=== PATIENT | male | born 1985 | race Caucasian/White ===

== ENCOUNTER → 2016-10-19 | Outpatient (CLI) | payer OTHER ==
[~2016-10-19] MED LIST: TRAM-21 PO
--- OUTSIDE RECORDS SUMMARY | 2016-10-19 10:06 | XMS REPORT | Continuity of Care Document ---
Author Author [facility] Organization [facility] Address Unknown Phone Unavailable Care Team Providers Care Interventional Radiology Tech Name Role Phone PCP Unavailable Source Comments Some departments are not documenting in the electronic medical record. If you do not see the information that you expected, contact Release of Information in the Health Information Management department at [phone] for further assistance in locating additional records.[facility] Active Allergies and Adverse Reactions Not on File Current Medications Not on file Active Problems Not on file Social History Tobacco Use Types Packs/Day Years Used Date Never Assessed Plan of Care Health Maintenance Due Date Last Done Comments Physical (Comprehensive) 1994 Exam Pertussis Vaccine 1998 Tetanus Vaccine 2004 Influenza Vaccine 05/04/2015 Results from Last 3 Months Not on file
--- NOTE | 2016-10-20 10:52 | ECHOCARDIOGRAPHY REPORT ---
PROCEDURE PHYSICIAN: SHEFALI NOEL DATE OF PROCEDURE: 10/19/2016 TWO DIMENSIONAL ECHOCARDIOGRAM REPORT PRIMARY PHYSICIAN: OTHER PHYSICIAN: REFERRING PHYSICIAN: ORDERING PHYSICIAN: Dr. Catie Elizabeth INDICATION FOR THE PROCEDURE: Cardiac murmur. MEASUREMENTS DERIVED VALUES LV DIAMETER (LAX) NORMALS NORMALS Diastolic 5.3 (3.6-5.2) Eject. Fract. (60%+/-6%) Systolic (2.3-3.9) Diastolic Vol. % Shortening (0.22-0.42) Systolic Vol. Aortic Root 3.3 IVS THICKNESS Diastolic 1. (0.6-1.1) LVPW THICKNESS Diastolic 1.1 (0.6-1.1) LA DIAMETER Systolic 2.9 (2.1-3.7) DESCRIPTION: 2-dimensional echocardiography shows normal global left ventricular systolic function. No regional wall motion abnormalities are seen. The left ventricular ejection fraction is approximately 65%. There does not appear to be significant pericardial effusion. Mitral and tricuspid valve leaflets show good leaflet excursion. There is aortic valve sclerosis and calcification. Aortic valve leaflet structure is not very well visualized. A bicuspid aortic valve is suspected. Doppler imaging shows mild aortic and mitral regurgitation. Peak pressure gradient across the aortic valve is 61 mmHg with a mean gradient 33 mmHg. The aortic valve area is calculated to be 1.6 sq cm. There is no evidence of significant intracardiac shunt on this transthoracic echocardiographic study. Inferior vena cava appears to have normal inspiratory collapse. CONCLUSIONS: 1. Aortic stenosis, moderate, probably in a bicuspid aortic valve, with a valve area of approximately 1.6 sq cm, a peak pressure gradient across the aortic valve of 61 mmHg and mean gradient across the aortic valve approximately 33 mmHg. 2. Normal global left ventricular systolic function and ejection fraction of 65%. 3. Mild aortic, mitral and tricuspid regurgitation. 4. Pulmonary artery systolic pressure is estimated to be approximately 25 to 30 mmHg. Job ID: [id number] Dictated Date: 10/19/2016 20:08:16 Cotton Puller Date: 10/20/2016 10:43:51 / jourdan
== END ==
LOC: CARD 10:02
PROVIDERS: ATTEND Pediatrics
DX: I35.8 Other nonrheumatic aortic valve disorders (principal)
CPT/HCPCS: 93306

== ENCOUNTER 2018-10-06 15:54 | Observation (INO) | payer SELFPAY, OTHER | END 2018-10-07 14:45 | disposition home or self-care (01) | LOC: ER 15:54 → ICU 17:09 ==

== ENCOUNTER 2018-10-31 12:17 | Outpatient (RCR) | payer OTHER ==
[~2018-10-31 12:17] MED LIST changes: +METO-395 PO; +STL80T PO
[2019-01-01] MEDS ORDERED: LORA0.5T (07:37)
[2019-01-01] MEDS ORDERED: ACHD5005 PO (11:48)
== END 2019-01-05 | disposition home or self-care (01) ==
LOC: CARD 12:17
PROVIDERS: ATTEND Internal Medicine Interventional Cardiology
DX: R00.2 Palpitations (principal)
CPT/HCPCS: 93270

== ENCOUNTER 2018-11-06 05:20 | Emergency (ER) | payer SELFPAY ==
[~2018-11-06] VITALS: Ht 180.3 cm; Wt 142.9 kg
[~2018-11-06 05:20] MED LIST changes: +SOTA80TA PO; -STL80T PO
[2018-11-06] MEDS ORDERED: diphenhydrAMINE 50 MG/ML INJ (BENADRYL) IVP STA (05:29)
[2018-11-06] MEDS ORDERED: METOCLOPRAMIDE INJ 10 MG/2 ML (REGLAN) IVP STA (05:29)
[2018-11-06] MEDS ORDERED: NS IV 1000 ML 1,000 ML IV STA (05:29)
--- NOTE | 2018-11-06 05:36 | ED Headache ---
General Chief Complaint: Head/Cervical Problems Stated Complaint: MIGRAINE History of Present Illness Date Seen by Provider: Nov 06, 2018 Time Seen by Provider: 05:25 This is a 33-year-old male with a history of migraine headaches here for a "migraine" headache. He typically will have his headaches on the left side and this headache is also left-sided. Not abrupt in onset. Began gradually last night. Not worst of life. He has seen a doctor for his headaches in the past however it has been a while. 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 Denies visual change or focal weakness, numbness, or tingling. Denies fever or neck stiffness. He does have some pain in the left posterior neck however he denies any recent injuries or chiropractic adjustments. He tried to take oral analgesics at home but he says that he vomited them back up. Vomiting is not unusual with his headaches. Smokes marijuana and smokes cigarettes, denies drug use. (KRISHNA BOLES DO) Allergies and Home Medications Allergies Coded Allergies: No Known Drug Allergies (Unverified , 01/08/09) Home Medications Metoprolol Succinate 100 Mg Tab.er.24h, 100 MG PO DAILY Prescribed by: ALEXUS MAHMOOD on 10/07/18 1431 Patient Home Medication List Home Medication List Reviewed: Yes (KRISHNA BOLES DO) Review of Systems Review of Systems Constitutional: no symptoms reported Eyes: Denies Blurred Vision; Photophobia Ears, Nose, Mouth, Throat: no symptoms reported Respiratory: no symptoms reported Cardiovascular: no symptoms reported Gastrointestinal: vomiting Genitourinary: no symptoms reported Musculoskeletal: no symptoms reported Skin: no symptoms reported Psychiatric/Neurological: Headache; Denies Numbness, Denies Tingling, Denies Weakness (KRISHNA BOLES DO) Past Posglyt-Obrihd-Mpzvab Hx Patient Social History Type Used: Cigarettes 2nd Hand Smoke Exposure: No Recent Foreign Travel: No Contact w/Someone Who Travel: No Recent Hopitalizations: Yes (ablasion 10/04/18) (KRISHNA BOLES DO) Immunizations Up To Date Date of Influenza Vaccine: Jun 03, 2018 (KRISHNA BOLES DO) Seasonal Allergies Seasonal Allergies: Yes (KRISHNA BOLES DO) Past Medical History Surgeries: Yes (heart ablasion) Respiratory: No Cardiac: Yes (hx of SVT, aortic stenosis) Aneurysm, Irregular Heartbeat Neurological: No Genitourinary: No Gastrointestinal: No Musculoskeletal: Yes Chronic Back Pain Endocrine: No HEENT: Yes (has "floaters in eyes") Cancer: No Psychosocial: No Integumentary: No Blood Disorders: No Adverse Reaction/Blood Tranf: No (KRISHNA BOLES DO) Family Medical History Hypertension (KRISHNA BOLES DO) Physical Exam Vital Signs Vital Signs - First Documented 11/06/18 05:30 Temp 96.1 Pulse 85 Resp 16 B/P (MAP) 119/69 (86) Pulse Ox 96 O2 Delivery Room Air (SANDRITA BUTLER MD) Vital Signs Capillary Refill : (KRISHNA BOLES DO) Height, Weight, BMI Height: 5'11.00" Weight: 305lbs. 13.0oz. [id number]; 42.7 BMI Method:Stated General Appearance: other (appears mildly uncomfortable but otherwise in no acute distress) HEENT: PERRL/EOMI, other (funduscopic exam is limited) Neck: full range of motion, supple; No carotid bruit (systolic murmur on cardiac exam is transmitted to carotids symmetrically) Cardiovascular: normal peripheral pulses, regular rate, rhythm, other (mild/ moderate systolic murmur) Respiratory: lungs clear Gastrointestinal: non tender, soft Psychiatric: alert, oriented x 3 Crainal Nerves: normal hearing, normal speech, PERRL; No abnormal eye position , No facial droop, No facial paresthesias, No gaze palsy, No hearing deficit (R) , No hearing deficit (L), No tongue deviation to R, No tongue deviation to L Coordination/Gait: normal finger to nose, normal gait Motor/Sensory: no motor deficit, no sensory deficit Skin: warm/dry (KRISHNA BOLES DO) Progress/Results/Core Measures Results/Orders Vital Signs/I&O 11/06/18 11/06/18 05:30 06:37 Temp 96.1 Pulse 85 76 Resp 16 15 B/P (MAP) 119/69 (86) 113/63 (80) Pulse Ox 96 98 O2 Delivery Room Air Room Air (SANDRITA BUTLER MD) Progress Progress Note #1: Progress Note Patient has a history of similar headaches and is neurologically intact. Vitals are stable. No testing is indicated at this time. We will treat with Reglan, Benadryl, fluids. We will reassess. Progress Note #2: Progress Note Care is signed out to oncoming provider at 6 AM. (KRISHNA BOLES DO) Progress Note : Time: 06:10 Progress Note Patient signed out to me at shift change pending reevaluation. He states his headache was approximately 8 of 10 when he came to the emergency department at this time it is 3 of 10. He is feeling significantly better and would like to go home. Focused Neuro exam performed by me: A+O x4, CN 2-12 intact, no meningismus, 5/5 strength to BUE and BLE. Normal sensation throughout. No pronator drift, no drifts on BLE. We will continue the IV fluids until gone plan on discharge. Strict return precautions discussed for headache. Patient has infrequent migraine headaches, and rarely has to come to the emergency department. He has not taken anything for migraine suppression and usually takes ibuprofen or Tylenol at home if needed. (SANDRITA BUTLER MD) Departure Impression Primary Impression: Headache Disposition: 01 HOME, SELF-CARE Condition: Stable Departure-Patient Inst. Decision time for Depature: 06:15 (SANDRITA BUTLER MD) Referrals: NO,LOCAL PHYSICIAN (PCP) Primary Care Physician YESSENIA HARDING APRN (Family) Primary Care Physician Patient Instructions: Headache, Adult (DC) KRISHNA BOLES DO Nov 06, 2018 05:35 SANDRITA BUTLER MD Nov 06, 2018 06:18
[2018-11-06 06:37] VITALS: BP 113/63
== END 2018-11-06 06:35 | disposition home or self-care (01) ==
LOC: EDUNIT# 05:20 → ER FS 05:23
DX: R51 Headache (principal); F12.10 Cannabis abuse, uncomplicated; F17.210 Nicotine dependence, cigarettes, uncomplicated; Z82.49 Family history of ischemic heart disease and other diseases of the circulatory system; Z86.69 Personal history of other diseases of the nervous system and sense organs
CPT/HCPCS: 99282

== ENCOUNTER 2019-01-01 07:26 | Emergency (ER) | payer OTHER ==
[~2019-01-01] VITALS: Ht 180.3 cm; Wt 138.3 kg
[~2019-01-01 07:26] MED LIST changes: -SOTA80TA PO; +STL80T PO
[2019-01-01] MEDS ORDERED: LORA0.5T (07:37)
[2019-01-01] MEDS ORDERED: morphine INJ 10 MG/ML 1ML (SYR OR VIAL) IVP STA (08:06)
[2019-01-01 08:12] VITALS: BP 113/79
--- NOTE | 2019-01-01 08:23 | ED Chest Pain ---
General Chief Complaint: Upper Extremity Stated Complaint: LT SHOULDER INJ Nursing Triage Note: Patient reports he believes he strained his shoulder and back from moving heavy objects/furniture all weekend. States his shoulder/back started hurting last Sunday. Nursing Sepsis Screen: No Definite Risk History of Present Illness Date Seen by Provider: January 01, 2019 Time Seen by Provider: 08:00 Initial Comments This is a 33 y/o m who presents to the ED for evaluation. Pt with significant cardiac history. Pt reports history of SVT and V-tach but on further discussion he notes that his V-tach is responsive to SVT. S/p ablation on Metoprolol. Does not have a defibrillator. Also has history of aortic root dilation, last imaged approx 6-8 months ago with 4.5cm diameter. Has a bicuspid aortic valve with regurgitation. Here with Left scapular region back pain progressive over the past 4-5 days. States that he did move this weekend and believes it is MSK but pain uncontrolled with a family members hydrocodone. No dizziness, no SOB, no LE edema. Pain is constant, 8/10, Achy/sharp with some radiation anteriorly. States that he has some chronic anterior chest pain related to his "heart" and states that that has been unchanged. No aggravating or alleviating factors. Allergies and Home Medications Allergies Coded Allergies: No Known Drug Allergies (Unverified , 01/01/19) Home Medications Metoprolol Succinate 100 Mg Tab.er.24h, 100 MG PO DAILY Prescribed by: ALEXUS MAHMOOD on 10/07/18 1431 Patient Home Medication List Home Medication List Reviewed: Yes Review of Systems Review of Systems Constitutional: No chills, No fever, No weakness Respiratory: Denies Cough, Denies Shortness of Air, Denies Wheezing Cardiovascular: Chest Pain; Denies Edema, Denies Palpitations Gastrointestinal: Denies Abdominal Pain, Denies Diarrhea, Denies Nausea, Denies Vomiting Musculoskeletal: back pain, muscle pain, muscle stiffness, muscle cramps Skin: other (Diaphoretic ) Psychiatric/Neurological: Anxiety All Other Systems Reviewed Negative Unless Noted: Yes (Negative excepted noted.) Past Jvbldgz-Eqdybc-Gacxty Hx Patient Social History Alcohol Use: Denies Use Recreational Drug Use: No Drug of Choice: marijuana Smoking Status: Current Everyday Smoker Type Used: Cigarettes 2nd Hand Smoke Exposure: No Recent Foreign Travel: No Contact w/Someone Who Travel: No Recent Infectious Disease Expo: No Recent Hopitalizations: No Physical Abuse: No Sexual Abuse: No Mistreated: No Fear: No Immunizations Up To Date Date of Influenza Vaccine: Jun 03, 2018 Seasonal Allergies Seasonal Allergies: No Past Medical History Surgeries: Yes (ablation-svt/a-fib) Cardiac Respiratory: No Cardiac: Yes Atrial Fibrillation, High Cholesterol, Irregular Heartbeat Neurological: Yes Headaches /Migraines Genitourinary: No Gastrointestinal: No Musculoskeletal: Yes Chronic Back Pain Endocrine: No HEENT: No Cancer: No Psychosocial: No Integumentary: No Blood Disorders: No Adverse Reaction/Blood Tranf: No Family Medical History Hypertension Physical Exam Vital Signs Vital Signs - First Documented 01/01/19 07:48 Temp 96.9 Pulse 74 Resp 16 B/P (MAP) 127/77 (94) Pulse Ox 97 O2 Delivery Room Air Capillary Refill : Less Than 3 Seconds Height, Weight, BMI Height: 5'11.00" Weight: 305lbs. 13.0oz. 138.506972gq; 42.7 BMI Method:Stated General Appearance: No Apparent Distress, Moderate Distress HEENT: PERRL/EOMI Neck: Full Range of Motion; No JVD Respiratory: Lungs Clear, Normal Breath Sounds, No Accessory Muscle Use Cardiovascular: Regular Rate, Rhythm, No Edema, No Murmur, Normal Peripheral Pulses, Other (no midline spinal tenderness. no reproducible tenderness to back region. ) Gastrointestinal: Normal Bowel Sounds, Non Tender, Soft Extremity: Normal Capillary Refill, Normal Range of Motion, Other Neurologic/Psychiatric: Alert, Oriented x3, No Motor/Sensory Deficits Skin: Damp Progress/Results/Core Measures Results/Orders My Orders Orders - PAULY WHITESIDE DO Cbc And Manual Diff (01/01/19 08:06) Basic Metabolic Panel (01/01/19 08:06) Troponin T (01/01/19 08:06) Chest 1 View Ap/Pa Only (01/01/19 08:06) Morphine Injection (Morphine Injection (01/01/19 08:06) Vital Signs/I&O 01/01/19 07:48 Temp 96.9 Pulse 74 Resp 16 B/P (MAP) 127/77 (94) Pulse Ox 97 O2 Delivery Room Air Blood Pressure Mean: 90 Progress Progress Note : Time: 08:10 Progress Note Pt with concerning history including aortic root aneurysm with bicuspid valve with non-reproducible back pain. Requiring CTA to r/o aortic dissection. At this facility the CT is currently broken. Pt will require emergent transfer to another facility. I spoke with Dr. Chan, ED physician at [facility] who accepted the pt and emergent transportation is being arranged. Pt has remained hemodynamically stable in the ED. He does not appear to have any active dissection on his very limited CXR. Morphine given for pain. Initial ECG Impression Date: January 01, 2019 Initial ECG Impression Time: 08:10 Comment NSR, no acute change compared to previous. Diagnostic Imaging Comments CXR IMPRESSION: There is no radiographic evidence of acute cardiopulmonary process. Departure Impression Primary Impression: Chest pain Additional Impression: Upper back pain on left side Disposition: 02 XFER SHT-TRM HOSP Condition: Unchanged Transfer Time Spoke to Accepting Phy: 08:10 Transfer Time: 08:35 Method of Transfer: EMS Departure-Patient Inst. Referrals: YESSENIA HARDING APRN (PCP/Family) Primary Care Physician PAULY WHITESIDE DO January 01, 2019 08:22
--- NOTE | 2019-01-01 08:29 | Diagnostic Imaging Report ---
CLINICAL INDICATION: Patient with shoulder injury with pain and back pain from lifting furniture 4 days ago. EXAM: Portable chest x-ray upright view. COMPARISONS: Chest x-ray dated 10/06/2018. FINDINGS: Lungs/pleura: Lungs are clear. There is no pneumothorax. There is no pleural effusion. Mediastinum: Unremarkable. Pulmonary vasculature: Unremarkable. Heart: Unremarkable. Bones/extrathoracic soft tissue: There are mildly hypertrophic spurs involving the thoracic spine. IMPRESSION: There is no radiographic evidence of acute cardiopulmonary process. Dictated by: Dictated on workstation # [id number]
[2019-01-01 08:30] LABS: BASOPHILS % (AUTO) 0 % (0-10); EOSINOPHILS % (AUTO) 3 % (0-10); HEMATOCRIT 46 % (40-54); HEMOGLOBIN 16.4 G/DL (13.3-17.7); LYMPHOCYTES % (AUTO) 30 % (12-44); MEAN CORPUSCULAR HEMOGLOBIN 30 PG (25-34); MEAN CORPUSCULAR HGB CONC 36 G/DL (32-36); MEAN CORPUSCULAR VOLUME 82 FL (80-99); MEAN PLATELET VOLUME 10.3 FL (7.4-10.4); MONOCYTES % (AUTO) 9 % (0-12); NEUTROPHILS % (AUTO) 59 % (42-75); PLATELET COUNT 232 10^3/uL (130-400); WHITE BLOOD COUNT 9.7 10^3/uL (4.3-11.0)
[2019-01-01 08:31] LABS: EOSINOPHILS # (AUTO) 0.3 10^3/uL (0.0-0.3); LYMPHOCYTES # (AUTO) 2.9 X 10^3 (1.0-4.0); MONOCYTES # (AUTO) 0.9 X 10^3 (0.0-1.0); NEUTROPHILS # (AUTO) 5.7 X 10^3 (1.8-7.8)
[2019-01-01 08:42] LABS: BAND NEUTROPHILS 1 %; BASOPHILS % (MANUAL) 0 %; EOSINOPHILS % (MANUAL) 5 %; LYMPHOCYTES % (MANUAL) 30 %; MONOCYTES % (MANUAL) 8 %; NEUTROPHILS % (MANUAL) 56 %
[2019-01-01 08:44] LABS: BUN/CREATININE RATIO 16; CALCIUM 8.9 MG/DL (8.5-10.1); CARBON DIOXIDE 21 MMOL/L (21-32); CHLORIDE 101 MMOL/L (98-107); CREATININE SERUM 0.74 MG/DL (0.60-1.30); GFR ESTIMATED > 60; GLUCOSE 130 MG/DL (70-105); POTASSIUM 4.6 MMOL/L (3.6-5.0); SODIUM 138 MMOL/L (135-145)
--- NOTE | 2019-01-01 09:37 | ED Chest Pain ---
General Chief Complaint: Upper Extremity Stated Complaint: LT SHOULDER INJ Nursing Triage Note: Patient reports he believes he strained his shoulder and back from moving heavy objects/furniture all weekend. States his shoulder/back started hurting last Sunday. Nursing Sepsis Screen: No Definite Risk Source: patient, RN/MD (Dr. Olguin, [facility]) Exam Limitations: no limitations History of Present Illness Date Seen by Provider: January 01, 2019 Time Seen by Provider: 09:25 Initial Comments Patient presents to ER by EMS from [facility] where he was seen because for the past for 5 days he's been having some pain in his left shoulder is progressively getting worse. He was moving all weekend for her friend so he thought maybe VATS why he was having some musculoskeletal pain but the pain started to get worse and is radiating to his front. Use hydrocodone one tablet a day for the last couple days and gave him some marginal relief. He's been resting it using ice and heat with no relief. He has a history of a thoracic aortic aneurysm with the last CT scan about 6 months ago showing a 4.5 cm dilatation. He is had no intervention on the seventh later just watching it. He is due to get a CT angiogram now. He also has a history of SVT and back October 04 he had an ablation done. October 06 he had another run of SVT. He has no coronary history. Plan was tomorrow for him to have an implanted loop recorder. He sees Dr. Dawn at [place], [place]. His pain is not reproducible with palpation or movement or deep inspiration. He had labs done that were initially unremarkable and a chest x-ray. He is transferred to our ER because their CT scanner is down. This pain was about 8 out of 10 at its worst today but after he received 6 of morphine and 50 of fentanyl was down to a 4 out of 10. It is starting to come back and he would like something else for pain. Allergies and Home Medications Allergies Coded Allergies: No Known Drug Allergies (Unverified , 01/01/19) Home Medications Metoprolol Succinate 100 Mg Tab.er.24h, 100 MG PO DAILY Prescribed by: ALEXUS MAHMOOD on 10/07/18 1431 Patient Home Medication List Home Medication List Reviewed: Yes Review of Systems Review of Systems Constitutional: No chills, No fever, No weakness Respiratory: Denies Cough, Denies Shortness of Air, Denies Wheezing Cardiovascular: Chest Pain; Denies Edema, Denies Palpitations Gastrointestinal: Denies Abdominal Pain, Denies Diarrhea, Denies Nausea, Denies Vomiting Musculoskeletal: back pain, muscle pain, muscle stiffness, muscle cramps Skin: other (Diaphoretic ) Psychiatric/Neurological: Anxiety Past Uszrqpu-Vninix-Pjrqpj Hx Patient Social History Alcohol Use: Denies Use Recreational Drug Use: No Drug of Choice: marijuana Smoking Status: Current Everyday Smoker Type Used: Cigarettes 2nd Hand Smoke Exposure: No Recent Foreign Travel: No Contact w/Someone Who Travel: No Recent Infectious Disease Expo: No Recent Hopitalizations: No Physical Abuse: No Sexual Abuse: No Mistreated: No Fear: No Immunizations Up To Date Date of Influenza Vaccine: Jun 03, 2018 Seasonal Allergies Seasonal Allergies: No Past Medical History Surgeries: Yes (ablation-svt/a-fib) Cardiac Respiratory: No Cardiac: Yes Atrial Fibrillation, High Cholesterol, Irregular Heartbeat Neurological: Yes Headaches /Migraines Genitourinary: No Gastrointestinal: No Musculoskeletal: Yes Chronic Back Pain Endocrine: No HEENT: No Cancer: No Psychosocial: No Integumentary: No Blood Disorders: No Adverse Reaction/Blood Tranf: No Family Medical History Hypertension Physical Exam Vital Signs Vital Signs - First Documented 01/01/19 07:48 Temp 96.9 Pulse 74 Resp 16 B/P (MAP) 127/77 (94) Pulse Ox 97 O2 Delivery Room Air Capillary Refill : Less Than 3 Seconds Height, Weight, BMI Height: 5'11.00" Weight: 305lbs. 13.0oz. 138.110548rs; 42.7 BMI Method:Stated General Appearance: Anxious, Moderate Distress HEENT: PERRL/EOMI, Pharynx Normal, Moist Mucous Membranes Neck: Full Range of Motion, Normal Inspection, Non Tender, Supple Respiratory: Chest Non Tender, Lungs Clear, Normal Breath Sounds, No Accessory Muscle Use, No Respiratory Distress Cardiovascular: Regular Rate, Rhythm, No Edema, Normal Peripheral Pulses Extremity: Normal Capillary Refill, No Pedal Edema Neurologic/Psychiatric: Alert, Oriented x3 Skin: Normal Color, Warm/Dry Progress/Results/Core Measures Results/Orders Lab Results Laboratory Tests Test 01/01/19 08:00 01/01/19 10:25 Range/Units White Blood Count 9.7 4.3-11.0 10^3/uL Red Blood Count 5.52 4.35-5.85 10^6/uL Hemoglobin 16.4 13.3-17.7 G/DL Hematocrit 46 40-54 % Mean Corpuscular Volume 82 80-99 FL Mean Corpuscular Hemoglobin 30 25-34 PG Mean Corpuscular Hemoglobin Concent 36 32-36 G/DL Red Cell Distribution Width 13.0 10.0-14.5 % Platelet Count 232 130-400 10^3/uL Mean Platelet Volume 10.3 7.4-10.4 FL Neutrophils (%) (Auto) 59 42-75 % Lymphocytes (%) (Auto) 30 12-44 % Monocytes (%) (Auto) 9 0-12 % Eosinophils (%) (Auto) 3 0-10 % Basophils (%) (Auto) 0 0-10 % Neutrophils # (Auto) 5.7 1.8-7.8 X 10^3 Lymphocytes # (Auto) 2.9 1.0-4.0 X 10^3 Monocytes # (Auto) 0.9 0.0-1.0 X 10^3 Eosinophils # (Auto) 0.3 0.0-0.3 10^3/uL Basophils # (Auto) 0.0 0.0-0.1 10^3/uL Neutrophils % (Manual) 56 % Lymphocytes % (Manual) 30 % Monocytes % (Manual) 8 % Eosinophils % (Manual) 5 % Basophils % (Manual) 0 % Band Neutrophils 1 % Sodium Level 138 135-145 MMOL/L Potassium Level 4.6 3.6-5.0 MMOL/L Chloride Level 101 98-107 MMOL/L Carbon Dioxide Level 21 21-32 MMOL/L Anion Gap 16 H 5-14 MMOL/L Blood Urea Nitrogen 12 7-18 MG/DL Creatinine 0.74 0.60-1.30 MG/DL Estimat Glomerular Filtration Rate > 60 BUN/Creatinine Ratio 16 Glucose Level 130 H 70-105 MG/DL Calcium Level 8.9 8.5-10.1 MG/DL Troponin T 8 <=15 NG/L Troponin I < 0.028 <0.028 NG/ML My Orders Orders - KERVIN MUNOZ Ct Angio Chest W (01/01/19 09:30) Troponin I (01/01/19 10:00) Ed Iv/Invasive Line Start (01/01/19 09:39) Ns Iv 1000 Ml (Sodium Chloride 0.9%) (01/01/19 09:39) Fentanyl Injection (Sublimaze Injection (01/01/19 09:45) Iohexol Injection (Omnipaque 350 Mg/Ml 1 (01/01/19 09:45) Received Contrast (Hold Metformin- Contr (01/01/19 09:45) Medications Given in ED Current Medications Medications Dose Ordered Sig/Helder Route Start Time Stop Time Status Last Admin Dose Admin Fentanyl Citrate 50 mcg ONCE ONCE IVP 01/01/19 09:45 01/01/19 09:46 DC 01/01/19 09:49 50 MCG Vital Signs/I&O 01/01/19 01/01/19 01/01/19 07:48 08:12 09:20 Temp 96.9 98.0 Pulse 74 81 Resp 16 16 B/P (MAP) 127/77 (94) 113/79 (90) 130/81 (97) Pulse Ox 97 96 O2 Delivery Room Air Room Air Blood Pressure Mean: 97 Progress Progress Note : Time: 09:37 Progress Note We'll give him 50 of fentanyl, a liter of saline and obtain a CT angiogram of his chest. Initial ECG Impression Date: January 01, 2019 Initial ECG Impression Time: 07:35 Initial ECG Rate: 68 Initial ECG Rhythm: Normal Sinus Initial ECG Intervals: Normal Initial ECG Impression: Nonspecific Changes Comment No ST elevation or depression. Diagnostic Imaging Diagonstic Imaging: CT (angiogram) Plain Films/CT/US/NM/MRI: chest Comments [facility] [place], [place] NAME: TRUPTI JUAREZ [facility] REC#: [id number] PT STATUS: REG ER : 1985 PHYSICIAN: KERVIN MUNOZ MD ADMIT DATE: 01/01/19/ER Draft Date of Exam:01/01/19 CT ANGIO CHEST W PROCEDURE: CT angiography of the chest with contrast. TECHNIQUE: Multiple contiguous axial images were obtained through the chest after uneventful bolus administration of intravenous contrast. 2D reconstructed CTA MIP acquisitions were also performed. Auto Exposure Controls were utilized during the CT exam to meet ALARA standards for radiation dose reduction. INDICATION: Left shoulder pain FINDINGS: Root sinus of Valsalva 3.3 cm. Root of the sinotubular junction 3.6 cm. The ascending aorta measures a maximal diameter of 4.9 cm. The arch normal in caliber. Branching pattern of the great vessels unremarkable. No mural hemorrhage, rupture or dissection. Some incidental pulsation motion artifact and the aorta noted. There is no mediastinal hemorrhage or inflammatory process. No pleural or pericardial collection. No acute soft tissue or osseous chest wall pathology. No mass or adenopathy. The visualized abdomen showed patency of the normal caliber abdominal aorta. Impression: Root ectasia and mild ascending aortic aneurysmal dilatation relevant calibers above without rupture, dissection or mural hemorrhage. No acute chest pathology identified. Arch and descending and upper thoracic aortic segments normal in caliber and patent. No appreciable plaque. Dictated on workstation # [id number] Dict: 01/01/19 1025 Trans: 01/01/[address] [facility] [id number] Interpreted by: SANDRITA ROBLEDO Electronically signed by: Reviewed: Reviewed by Me Consults #1: Consulting Physician: Yessi MEDEROS MD Consults Notes He still like to the loop recorder tomorrow. He would like us to run the changes by Dr. Dawn, CT surgery. Consults #2: Consults Notes Dr. Dawn, CT surgery [place], [place]: 1125 called left a message and we will have him contact us. 1140: Discussed the imaging Dr. Dawn and he says it was 4.9 cm on previous scan this is stable. Wouldn't do anything until 5.5. He has a follow-up appointment that he would like the patient to keep. Departure Impression Primary Impression: Chest pain Qualified Codes: R07.9 - Chest pain, unspecified Additional Impression: Upper back pain on left side Disposition: HOME, SELF-CARE Condition: Stable Departure-Patient Inst. Decision time for Depature: 11:45 Referrals: YESSENIA HARDING APRN (PCP/Family) Primary Care Physician Patient Instructions: Muscle Strain (DC) Add. Discharge Instructions: Heat, topical creams such as icy hot or Biofreeze and Tylenol 1000 mg every 8 hours. You may also use hydrocodone one tablet every 6 hours as needed for pain. Hydrocodone will cause constipation and be treated with MiraLAX once a day. May also cause drowsiness and should not be mixed with alcohol. Follow-up with primary care for further management of your shoulder pain. Consider chiropractic. All discharge instructions reviewed with patient and/or family. Voiced understanding. Scripts Hydrocodone Bit/Acetaminophen (Hydrocodone/Acetaminophen 5/325mg Tablet) 1 Tab Tab 1 EACH PO Q4-6HR PRN for PAIN-MODERATE MDD 10, #14 TAB 0 Refills Prov: KERVIN MUNOZ 01/01/19 Work/School Note: Work Release Form Date Seen in the Emergency Department: January 01, 2019 Return to Work: January 02, 2019 Restrictions: No Restrictions KERVIN MUNOZ January 01, 2019 09:37
--- OUTSIDE RECORDS SUMMARY | 2019-01-01 09:38 | XMS REPORT | Continuity of Care Document ---
Author Organization Unknown Address Unknown Allergies There is no data. Medications There is no data. Problems There is no data. Procedures There is no data. Results Test Result Range GLUCOSE, SERUM - 11/20/18 13:09 GLUCOSE 104 mg/dL 65-99 Encounters ACCT No. Visit Date/Time Discharge Status Pt. Type Provider Facility Loc./Unit Complaint [id number] 12/25/2018 08:40:00 12/25/2018 23:59:59 [facility] Outpatient YESSENIA HARDING [facility] [id number] 11/20/2018 13:15:00 Document Registration
[2019-01-01] MEDS ORDERED: NS IV 1000 ML 1,000 ML IV SCH (09:39)
[2019-01-01] MEDS ORDERED: IOHEXOL 350 MG/ML 150 ML (OMNIPAQUE 350) VIAL IV ONE (09:45)
[2019-01-01] MEDS ORDERED: fentaNYL INJECTION 100 MCG/2 ML AMP IVP ONE (09:45)
[2019-01-01] MEDS ORDERED: HOLD METFORMIN - RECEIVED CONTRAST 20 ML VIAL IV SCH (09:45)
--- NOTE | 2019-01-01 10:51 | Diagnostic Imaging Report ---
PROCEDURE: CT angiography of the chest with contrast. TECHNIQUE: Multiple contiguous axial images were obtained through the chest after uneventful bolus administration of intravenous contrast. 2D reconstructed CTA MIP acquisitions were also performed. Auto Exposure Controls were utilized during the CT exam to meet ALARA standards for radiation dose reduction. INDICATION: Left shoulder pain FINDINGS: Root sinus of Valsalva 3.3 cm. Root of the sinotubular junction 3.6 cm. The ascending aorta measures a maximal diameter of 4.9 cm. The arch normal in caliber. Branching pattern of the great vessels unremarkable. No mural hemorrhage, rupture or dissection. Some incidental pulsation motion artifact and the aorta noted. There is no mediastinal hemorrhage or inflammatory process. No pleural or pericardial collection. No acute soft tissue or osseous chest wall pathology. No mass or adenopathy. The visualized abdomen showed patency of the normal caliber abdominal aorta. Impression: Root ectasia and mild ascending aortic aneurysmal dilatation relevant calibers above without rupture, dissection or mural hemorrhage. No acute chest pathology identified. Arch and descending and upper thoracic aortic segments normal in caliber and patent. No appreciable plaque. Dictated by: Dictated on workstation # [id number]
--- NOTE | 2019-01-01 10:52 | NUR ---
Patient departed ER in care of [facility] at 0834.
[2019-01-01] MEDS ORDERED: ACHD5005 PO (11:48)
[2019-01-01 12:00] VITALS: BP 121/90
[2019-01-01] MEDS ORDERED: HYDROcodone/APAP 5 MG/325 MG (LORTAB) TAB PO ONE (12:00)
== END 2019-01-01 12:00 | disposition home or self-care (01) ==
LOC: EDUNIT# 07:26 → ER FS 07:28 → ER 12:00
DX: M54.6 Pain in thoracic spine (principal); R07.9 Chest pain, unspecified; I48.91 Unspecified atrial fibrillation; E78.00 Pure hypercholesterolemia, unspecified; G43.909 Migraine, unspecified, not intractable, without status migrainosus; F17.210 Nicotine dependence, cigarettes, uncomplicated; Z82.49 Family history of ischemic heart disease and other diseases of the circulatory system; X50.0XXA Overexertion from strenuous movement or load, initial encounter
CPT/HCPCS: 36415; 71045; 71275; 80048; 84484; 85007; 85027

== ENCOUNTER 2019-01-02 08:22 | Day surgery (SDC) | payer OTHER ==
[~2019-01-02] VITALS: Ht 180.3 cm; Wt 138.3 kg
[~2019-01-02 08:22] MED LIST changes: +ACHD5005 PO; +LORA0.5T
--- OUTSIDE RECORDS SUMMARY | 2019-01-02 08:26 | XMS REPORT | Continuity of Care Document ---
Author Organization Unknown Address Unknown Allergies There is no data. Medications There is no data. Problems There is no data. Procedures There is no data. Results Test Result Range GLUCOSE, SERUM - 11/20/18 13:09 GLUCOSE 104 mg/dL 65-99 Encounters ACCT No. Visit Date/Time Discharge Status Pt. Type Provider Facility Loc./Unit Complaint [id number] 12/25/2018 08:40:00 12/25/2018 23:59:59 [facility] Outpatient YESSENIA HARDING [facility] [id number] 11/20/2018 13:15:00 Document Registration
[2019-01-02 09:09] VITALS: BP 139/104
[2019-01-02] MEDS ORDERED: LIDOCAINE 1% INJ 20 ML 20 ML VIAL ONE (09:21)
--- NOTE | 2019-01-02 10:03 | Implantation of Loop Monitor ---
Implant of Loop Monitior PROCEDURE PHYSICIAN: Lino Mesa MD IMPLANTATION OF LOOP MONITOR REPORT DATE OF PROCEDURE: 01/02/19 ATTENDING PHYSICIAN: Dr. Devaughn Mesa. PERFORMING PHYSICIAN: Dr. Devaughn Mesa. INDICATION: Palpitations, PSVT. PREOP DIAGNOSIS: Palpitations, PSVT. POSTOP DIAGNOSIS: The patient's, PSVT, s/p implantation of loop recorder. PROCEDURE DETAILS: The patient is a 33 male with history of palpitations, PSVT. Therefore implantable loop recorder was discussed and agreed with the patient. Informed consent was taken. All risks and complications were discussed at length. The patient was draped and prepped in the usual sterile fashion. Local anesthesia was lidocaine, which was given in the substernal area close to the 4th intercostal space. Loop monitor was implanted according to the protocol. Steri- Strips were placed at the end of the procedure. There were no complications and the patient tolerated the procedure well. ANESTHESIA: Local anesthesia with lidocaine. COMPLICATIONS: None CONTRAST/FLUOROSCOPY: None CONCLUSION: 1. Successful implantation of loop monitor for palpitations, PSVT 2. No complication and the patient tolerated the procedure well. Lino Mesa MD, RS, CCDS Cardiac Electrophysiology Yessi MESA MD January 02, 2019 10:03
[2019-01-02] MEDS ORDERED: LIDOCAINE 1% INJ 20 ML 20 ML VIAL INJ ONE (10:30)
== END 2019-01-02 10:23 | disposition home or self-care (01) ==
LOC: CATH 08:22
PROVIDERS: ATTEND Internal Medicine Interventional Cardiology
DX: R00.2 Palpitations (principal); I47.2 Ventricular tachycardia; I35.0 Nonrheumatic aortic (valve) stenosis; I71.2 Thoracic aortic aneurysm, without rupture; F17.210 Nicotine dependence, cigarettes, uncomplicated; Z79.82 Long term (current) use of aspirin; Z79.899 Other long term (current) drug therapy
CPT/HCPCS: 33285

== ENCOUNTER 2019-01-02 12:27 | Emergency (ER) | payer OTHER ==
[~2019-01-02] VITALS: Ht 180.3 cm; Wt 140.6 kg
[2019-01-02 12:28] VITALS: BP 123/54
--- NOTE | 2019-01-02 12:43 | ED Cardiac General ---
History of Present Illness General Stated Complaint: FELT "POP" IN CHEST Source: patient, EMS Exam Limitations: no limitations History of Present Illness Date Seen by Provider: January 02, 2019 Time Seen by Provider: 12:29 Initial Comments Patient presents to ER by EMS with chief complaint that he had just had his loop recorder placed by Dr. Mesa this morning under local anesthesia. He was sitting on his couch has not eaten anything since yesterday and was not doing anything strenuous when he says he stretched and felt a tugging pulling sensation across to his chest and then got very dizzy lightheaded for about 5 minutes which then spontaneously passed. He had no nausea no chest pain and no shortness of breath. He is not having any discomfort or tugging in his chest now. He does have a history of AAA which was imaged yesterday in stable from May 2018. The patient was moving some family and friends over the weekend and had some back and shoulder and chest discomfort most likely related to musculoskeletal at that time. He has not taken anything for pain or discomfort. He had no loss of consciousness. He has not taken his morning medications yet. He states now he is just having some mild achiness in his epigastric region. Allergies and Home Medications Allergies Coded Allergies: No Known Drug Allergies (Unverified , 01/01/19) Home Medications Hydrocodone Bit/Acetaminophen 1 Tab Tab, 1 EACH PO Q4-6HR PRN for PAIN-MODERATE Prescribed by: KERVIN MUNOZ on 01/01/19 1148 Metoprolol Succinate 100 Mg Tab.er.24h, 100 MG PO DAILY Prescribed by: ALEXUS MAHMOOD on 10/07/18 1431 Patient Home Medication List Home Medication List Reviewed: Yes Review of Systems Review of Systems Constitutional: No chills, No diaphoresis EENTM: No Blurred Vision, No Double Vision Respiratory: Denies Cough, Denies Shortness of Air Cardiovascular: See HPI; Denies Chest Pain, Denies Edema Gastrointestinal: Denies Constipated, Denies Diarrhea Genitourinary: Denies Burning, Denies Discharge Musculoskeletal: No back pain, No joint pain Skin: No change in color, No pruritus Psychiatric/Neurological: Denies Headache, Denies Numbness Past Wwgbnrd-Zewivd-Rhczpg Hx Patient Social History Alcohol Use: Occasionally Uses Recreational Drug Use: Yes Drug of Choice: marijuana Smoking Status: Current Everyday Smoker Type Used: Cigarettes 2nd Hand Smoke Exposure: No Recent Hopitalizations: Yes Immunizations Up To Date Date of Influenza Vaccine: Jun 03, 2018 Seasonal Allergies Seasonal Allergies: No Past Medical History Surgeries: Yes (ablation-svt/a-fib) Cardiac Respiratory: No Cardiac: Yes Atrial Fibrillation, High Cholesterol, Irregular Heartbeat Neurological: Yes Headaches /Migraines Genitourinary: No Gastrointestinal: No Musculoskeletal: Yes Chronic Back Pain Endocrine: No HEENT: No Cancer: No Psychosocial: No Integumentary: No Blood Disorders: No Adverse Reaction/Blood Tranf: No Family Medical History Hypertension Physical Exam Vital Signs Vital Signs - First Documented 01/02/19 12:28 Temp 98.5 Pulse 91 Resp 20 B/P (MAP) 123/54 (77) Pulse Ox 98 O2 Delivery Room Air Capillary Refill : Height, Weight, BMI Height: 5'11.00" Weight: 305lbs. 0.0oz. 138.588380yr; 42.5 BMI Method:Stated General Appearance: No Apparent Distress, WD/WN HEENT: PERRL/EOMI, Pharynx Normal, Moist Mucous Membranes Neck: Full Range of Motion, Normal Inspection, Non Tender, Supple Respiratory: Chest Non Tender, Lungs Clear Cardiovascular: Regular Rate, Rhythm, No Edema, No Gallop, No JVD, Normal Peripheral Pulses Gastrointestinal: Normal Bowel Sounds, Non Tender, Soft Neurologic/Psychiatric: Alert, Oriented x3 Skin: Normal Color, Warm/Dry Progress/Results/Core Measures Results/Orders Lab Results Laboratory Tests Test 01/02/19 12:41 Range/Units White Blood Count 8.2 4.3-11.0 10^3/uL Red Blood Count 5.56 4.35-5.85 10^6/uL Hemoglobin 16.3 13.3-17.7 G/DL Hematocrit 45 40-54 % Mean Corpuscular Volume 80 80-99 FL Mean Corpuscular Hemoglobin 29 25-34 PG Mean Corpuscular Hemoglobin Concent 37 H 32-36 G/DL Red Cell Distribution Width 13.0 10.0-14.5 % Platelet Count 198 130-400 10^3/uL Mean Platelet Volume 9.9 7.4-10.4 FL Neutrophils (%) (Auto) 56 42-75 % Lymphocytes (%) (Auto) 34 12-44 % Monocytes (%) (Auto) 8 0-12 % Eosinophils (%) (Auto) 2 0-10 % Basophils (%) (Auto) 0 0-10 % Neutrophils # (Auto) 4.6 1.8-7.8 X 10^3 Lymphocytes # (Auto) 2.8 1.0-4.0 X 10^3 Monocytes # (Auto) 0.6 0.0-1.0 X 10^3 Eosinophils # (Auto) 0.2 0.0-0.3 10^3/uL Basophils # (Auto) 0.0 0.0-0.1 10^3/uL Sodium Level 139 135-145 MMOL/L Potassium Level 4.3 3.6-5.0 MMOL/L Chloride Level 107 98-107 MMOL/L Carbon Dioxide Level 21 21-32 MMOL/L Anion Gap 11 5-14 MMOL/L Blood Urea Nitrogen 10 7-18 MG/DL Creatinine 0.81 0.60-1.30 MG/DL Estimat Glomerular Filtration Rate > 60 BUN/Creatinine Ratio 12 Glucose Level 107 H 70-105 MG/DL Calcium Level 9.4 8.5-10.1 MG/DL Corrected Calcium 9.2 8.5-10.1 MG/DL Total Bilirubin 0.5 0.1-1.0 MG/DL Aspartate Amino Transf (AST/SGOT) 29 5-34 U/L Alanine Aminotransferase (ALT/SGPT) 42 0-55 U/L Alkaline Phosphatase 50 40-136 U/L Troponin I < 0.028 <0.028 NG/ML Total Protein 7.1 6.4-8.2 GM/DL Albumin 4.3 3.2-4.5 GM/DL My Orders Orders - KERVIN MUNOZ Continuous Ekg Monitoring (01/02/19 12:37) Ekg Tracing (01/02/19 12:37) Cbc With Automated Diff (01/02/19 12:37) Comprehensive Metabolic Panel (01/02/19 12:37) Troponin I (01/02/19 12:37) Chest Pa/Lat (2 View) (01/02/19 12:37) Lidocaine 2% Viscous 15 Ml (Xylocaine Vi (01/02/19 12:45) Famotidine Tablet (Pepcid Tablet) (01/02/19 12:45) Antacid Suspension (Mylanta Suspension (01/02/19 12:45) Medications Given in ED Current Medications Medications Dose Ordered Sig/Helder Route Start Time Stop Time Status Last Admin Dose Admin Al Hydrox/Mg Hydrox/Simethicone 30 ml ONCE ONCE PO 01/02/19 12:45 01/02/19 12:47 DC 01/02/19 13:05 30 ML Lidocaine HCl 15 ml ONCE ONCE PO 01/02/19 12:45 01/02/19 12:47 DC 01/02/19 13:05 15 ML Vital Signs/I&O 01/02/19 12:28 Temp 98.5 Pulse 91 Resp 20 B/P (MAP) 123/54 (77) Pulse Ox 98 O2 Delivery Room Air Progress Progress Note : Time: 12:43 Progress Note Get some EKG basic labs. His tugging is right around the area where the loop recorder was placed. We'll get a 2 view chest x-ray and then review the results with Dr. Mesa. We'll give him a GI cocktail see if that helps with his epigastric discomfort. External skin is unremarkable. Wounds are approximated, clean dry without fluctuance or erythema. Initial ECG Impression Date: January 02, 2019 Initial ECG Impression Time: 12:44 Initial ECG Rate: 87 Initial ECG Rhythm: Normal Sinus Initial ECG Intervals: Normal Initial ECG Impression: Normal, Nonspecific Changes Initial ECG Comparisson: Unchanged Comment Accelerated junctional rhythm. No significant ST elevation. No change from previous EKG on 01/01/19. Diagnostic Imaging Diagonstic Imaging: Xray Plain Films/CT/US/NM/MRI: chest (2v) Comments Stable chest, wide mediastinum is chronic. No acute cardiopulmonary processes noted. Reviewed: Reviewed by Me Consults : Consulting Physician: Yessi MESA MD Consults Notes Discussed the case at length up to the examination, EKG, [employer] query, chest x-ray and labs. He agrees to allow the patient to go home and follow up routine appointment. Departure Impression Primary Impression: Dizziness, nonspecific Disposition: 01 HOME, SELF-CARE Condition: Stable Departure-Patient Inst. Decision time for Depature: 13:41 Referrals: [facility] (PCP) Primary Care Physician YESSENIA HARDING APRN (Family) Primary Care Physician Yessi MESA MD Patient Instructions: Chest Pain That Is Not Caused by the Heart (DC) Add. Discharge Instructions: Keep your routine follow-up appointment with Dr. Mesa. Return to the ER for severe, tearing chest pain, shortness of breath, weakness or other concerning symptoms. KERVIN MUNOZ January 02, 2019 12:43
[2019-01-02] MEDS ORDERED: ANTACID SUSP 30 ML UDC (MYLANTA) PO ONE (12:45)
[2019-01-02] MEDS ORDERED: LIDOCAINE 2% VISCOUS 15 ML UDC PO ONE (12:45)
[2019-01-02] MEDS ORDERED: FAMOTIDINE 20 MG (PEPCID) TABLET PO STA (12:45)
[2019-01-02 12:46] LABS: BASOPHILS % (AUTO) 0 % (0-10); EOSINOPHILS # (AUTO) 0.2 10^3/uL (0.0-0.3); EOSINOPHILS % (AUTO) 2 % (0-10); HEMATOCRIT 45 % (40-54); HEMOGLOBIN 16.3 G/DL (13.3-17.7); LYMPHOCYTES # (AUTO) 2.8 X 10^3 (1.0-4.0); LYMPHOCYTES % (AUTO) 34 % (12-44); MEAN CORPUSCULAR HEMOGLOBIN 29 PG (25-34); MEAN CORPUSCULAR HGB CONC 37 G/DL (32-36); MEAN CORPUSCULAR VOLUME 80 FL (80-99); MEAN PLATELET VOLUME 9.9 FL (7.4-10.4); MONOCYTES # (AUTO) 0.6 X 10^3 (0.0-1.0); MONOCYTES % (AUTO) 8 % (0-12); NEUTROPHILS # (AUTO) 4.6 X 10^3 (1.8-7.8); NEUTROPHILS % (AUTO) 56 % (42-75); PLATELET COUNT 198 10^3/uL (130-400); WHITE BLOOD COUNT 8.2 10^3/uL (4.3-11.0)
[2019-01-02 13:07] LABS: ALANINE AMINOTRANSFERASE 42 U/L (0-55); ALBUMIN 4.3 GM/DL (3.2-4.5); ALKALINE PHOSPHATASE 50 U/L (40-136); BILIRUBIN,TOTAL 0.5 MG/DL (0.1-1.0); BUN/CREATININE RATIO 12; CALCIUM 9.4 MG/DL (8.5-10.1); CARBON DIOXIDE 21 MMOL/L (21-32); CHLORIDE 107 MMOL/L (98-107); CREATININE SERUM 0.81 MG/DL (0.60-1.30); GFR ESTIMATED > 60; GLUCOSE 107 MG/DL (70-105); POTASSIUM 4.3 MMOL/L (3.6-5.0); SODIUM 139 MMOL/L (135-145); TOTAL PROTEIN 7.1 GM/DL (6.4-8.2)
--- NOTE | 2019-01-02 13:20 | NUR ---
PATIENT'S LOOP RECORDER READ AND TRANSMITTED WITHOUT DIFFICULTY.
--- NOTE | 2019-01-02 13:51 | Diagnostic Imaging Report ---
INDICATION: Patient felt a pop in his chest. COMPARISON: 01/01/2019 FINDINGS: Frontal and lateral views of the chest demonstrate normal heart size and pulmonary vascularity. The lungs are clear. There are no signs of infiltrate, pleural effusions or pneumothoraces. The visualized osseous structures show no acute abnormalities. IMPRESSION: 1. No acute process. No signs of infiltrates, effusions or pneumothoraces. Dictated by: Dictated on workstation # [id number]
== END 2019-01-02 14:05 | disposition home or self-care (01) ==
LOC: EDUNIT# 12:27 → ER 12:28
DX: I48.91 Unspecified atrial fibrillation (principal); E78.00 Pure hypercholesterolemia, unspecified; G43.909 Migraine, unspecified, not intractable, without status migrainosus; R42 Dizziness and giddiness; F12.10 Cannabis abuse, uncomplicated; F17.210 Nicotine dependence, cigarettes, uncomplicated; Z82.49 Family history of ischemic heart disease and other diseases of the circulatory system
CPT/HCPCS: 36415; 71046; 80053; 84484; 85025; 93005

== ENCOUNTER 2019-04-30 13:20 | Emergency (ER) | payer SELFPAY ==
[~2019-04-30] VITALS: Ht 180.3 cm; Wt 139.7 kg
--- NOTE | 2019-04-30 13:55 | ED Chest Pain ---
General Chief Complaint: Chest Pain Stated Complaint: CHEST PAIN Source: patient Exam Limitations: no limitations (DUDLEY MONTILLA) History of Present Illness Date Seen by Provider: Apr 30, 2019 Time Seen by Provider: 13:30 Initial Comments Pt presents with intermittent sharp chest pain that lasts 30s-1min at a time and has been going on for about a month. The episodes have been getting longer over the month and more frequent. He has a history of heart murmur, cardiac electrophysiology with ablation procedure in October, and an aneurysm that seems to be causing him some anxiety. Timing/Duration: changing over time, intermittent, other (1 month) Severity/Quality: mild Location: substernal Radiation: no radiation Activities at Onset: none Associated Symptoms: No back pain; diaphoresis; No dizziness, No fever/chills, No nausea/vomiting; shortness of breath (DUDLEY MONTILLA) Timing/Duration: changing over time, other (1 month) Severity/Quality: mild Location: central Radiation: no radiation ASA po STAMP PRESS OPERATOR: No NTG SL STAMP PRESS OPERATOR: No Associated Symptoms: No abdominal pain, No weakness (MIKEL CASTLE MD) Allergies and Home Medications Allergies Coded Allergies: No Known Drug Allergies (Unverified , 01/01/19) Home Medications Metoprolol Succinate 100 Mg Tab.er.24h, 100 MG PO DAILY Prescribed by: ALEXUS MAHMOOD on 10/07/18 1431 Patient Home Medication List Home Medication List Reviewed: Yes (MIKEL CASTLE MD) Review of Systems Review of Systems Constitutional: No chills; diaphoresis; No dizziness, No fever EENTM: No Ear Pain, No Nose Congestion Respiratory: Cough, Shortness of Air Cardiovascular: Chest Pain, Palpitations Gastrointestinal: No Symptoms Reported Genitourinary: No Symptoms Reported Musculoskeletal: no symptoms reported Skin: no symptoms reported (DUDLEY MONTILLA) Respiratory: Cough, Shortness of Air Cardiovascular: See HPI Musculoskeletal: No back pain; muscle pain (MIKEL CASTLE MD) All Other Systems Reviewed Negative Unless Noted: Yes (MIKEL CASTLE MD) Past Vhvzwtj-Vgcpes-Iyhnwz Hx Past Med/Social Hx: Reviewed Nursing Past Med/Soc Hx (MIKEL CASTLE MD) Patient Social History Drug of Choice: marijuana Type Used: Cigarettes 2nd Hand Smoke Exposure: No Recent Foreign Travel: No Contact w/Someone Who Travel: No Recent Hopitalizations: Yes (DUDLEY MONTILLA) Immunizations Up To Date Date of Influenza Vaccine: Jun 03, 2018 (DUDLEY MONTILLA) Seasonal Allergies Seasonal Allergies: No (DUDLEY MONTILLA) Past Medical History Surgeries: Yes (ablation-svt/a-fib, LOOP RECORDER 01/02/19) Cardiac Respiratory: No Cardiac: Yes Atrial Fibrillation, High Cholesterol, Irregular Heartbeat Neurological: Yes Headaches /Migraines Genitourinary: No Gastrointestinal: No Musculoskeletal: Yes Chronic Back Pain Endocrine: No HEENT: No Cancer: No Psychosocial: No Integumentary: No Blood Disorders: No Adverse Reaction/Blood Tranf: No (DUDLEY MONTILLA) Family Medical History Reviewed Nursing Family Hx (MIKEL CASTLE MD) Hypertension (DUDLEY MONTILLA) Physical Exam Vital Signs Vital Signs - First Documented 04/30/19 13:44 Temp 98.9 Pulse 85 Resp 22 B/P (MAP) 135/89 (104) Pulse Ox 97 O2 Delivery Room Air (MIKEL CASTLE MD) Vital Signs Capillary Refill : (DUDLEY MONTILLA) Height, Weight, BMI Height: 5'11.00" Weight: 310lbs. 0.0oz. 140.861689ed; 42.5 BMI Method:Actual General Appearance: No Apparent Distress, WD/WN HEENT: PERRL/EOMI, TMs Normal, Normal ENT Inspection, Pharynx Normal Neck: Full Range of Motion, Normal Inspection Respiratory: Chest Non Tender, Lungs Clear Cardiovascular: No JVD, Normal Peripheral Pulses Extremity: Normal Range of Motion, No Calf Tenderness Neurologic/Psychiatric: Alert, Oriented x3, No Motor/Sensory Deficits, Normal Mood/Affect Skin: Normal Color, Warm/Dry (DUDLEY MONTILLA) General Appearance: No Apparent Distress, WD/WN Respiratory: Chest Non Tender, Lungs Clear Cardiovascular: Regular Rate, Rhythm, Normal Peripheral Pulses, Systolic Murmur Gastrointestinal: Non Tender, Soft Extremity: Normal Inspection, Normal Range of Motion, Non Tender, No Calf Tenderness Neurologic/Psychiatric: Alert, Oriented x3 Skin: Normal Color, Warm/Dry (MIKEL CASTLE MD) Progress/Results/Core Measures Results/Orders Lab Results Laboratory Tests Test 04/30/19 13:41 04/30/19 15:43 Range/Units White Blood Count 9.1 4.3-11.0 10^3/uL Red Blood Count 5.50 4.35-5.85 10^6/uL Hemoglobin 16.3 13.3-17.7 G/DL Hematocrit 45 40-54 % Mean Corpuscular Volume 81 80-99 FL Mean Corpuscular Hemoglobin 30 25-34 PG Mean Corpuscular Hemoglobin Concent 37 H 32-36 G/DL Red Cell Distribution Width 12.6 10.0-14.5 % Platelet Count 215 130-400 10^3/uL Mean Platelet Volume 9.9 7.4-10.4 FL Neutrophils (%) (Auto) 60 42-75 % Lymphocytes (%) (Auto) 30 12-44 % Monocytes (%) (Auto) 7 0-12 % Eosinophils (%) (Auto) 2 0-10 % Basophils (%) (Auto) 0 0-10 % Neutrophils # (Auto) 5.5 1.8-7.8 X 10^3 Lymphocytes # (Auto) 2.8 1.0-4.0 X 10^3 Monocytes # (Auto) 0.6 0.0-1.0 X 10^3 Eosinophils # (Auto) 0.2 0.0-0.3 10^3/uL Basophils # (Auto) 0.0 0.0-0.1 10^3/uL Prothrombin Time 12.6 12.2-14.7 SEC INR Comment 0.9 0.8-1.4 Activated Partial Thromboplast Time 29 24-35 SEC D-Dimer <= 0.27 0.00-0.49 UG/ML Sodium Level 140 135-145 MMOL/L Potassium Level 4.0 3.6-5.0 MMOL/L Chloride Level 105 98-107 MMOL/L Carbon Dioxide Level 26 21-32 MMOL/L Anion Gap 9 5-14 MMOL/L Blood Urea Nitrogen 10 7-18 MG/DL Creatinine 0.86 0.60-1.30 MG/DL Estimat Glomerular Filtration Rate > 60 BUN/Creatinine Ratio 12 Glucose Level 122 H 70-105 MG/DL Calcium Level 9.6 8.5-10.1 MG/DL Corrected Calcium 9.3 8.5-10.1 MG/DL Magnesium Level 1.9 1.6-2.4 MG/DL Total Bilirubin 0.3 0.1-1.0 MG/DL Aspartate Amino Transf (AST/SGOT) 23 5-34 U/L Alanine Aminotransferase (ALT/SGPT) 32 0-55 U/L Alkaline Phosphatase 57 40-136 U/L Myoglobin 45.6 10.0-92.0 NG/ML Troponin I < 0.028 < 0.028 <0.028 NG/ML Total Protein 7.4 6.4-8.2 GM/DL Albumin 4.4 3.2-4.5 GM/DL Smear Scan YES (MIKEL CASTLE MD) My Orders Orders - MIKEL CASTLE MD Cbc With Automated Diff (04/30/19 13:49) Magnesium (04/30/19 13:49) Chest 1 View, Ap/Pa Only (04/30/19 13:49) Ekg Tracing (04/30/19 13:49) Cardiac Profile 1 (04/30/19 13:49) Comprehensive Metabolic Panel (04/30/19 13:49) Myoglobin Serum (04/30/19 13:49) Protime With Inr (04/30/19 13:49) Partial Thromboplastin Time (04/30/19 13:49) O2 (04/30/19 13:49) Monitor-Rhythm Ecg Trace Only (04/30/19 13:49) Lipid Panel (05/01/19 06:00) Ed Iv/Invasive Line Start (04/30/19 13:49) Aspirin Chewable Tablet (Baby Aspirin Ch (04/30/19 14:00) Fibrin Degradation Products (04/30/19 13:41) Ct Angio Chest W (04/30/19 14:23) Iohexol Injection (Omnipaque 350 Mg/Ml 1 (04/30/19 14:30) Ns (Ivpb) (Sodium Chloride 0.9% Ivpb Bag (04/30/19 14:30) Iohexol Injection (Omnipaque 350 Mg/Ml 1 (04/30/19 14:30) Received Contrast (Hold Metformin- Contr (04/30/19 14:30) Ns (Ivpb) (Sodium Chloride 0.9% Ivpb Bag (04/30/19 14:30) Troponin I (8/28/19 15:38) (MIKEL CASTLE MD) Medications Given in ED Current Medications Medications Dose Ordered Sig/Helder Route Start Time Stop Time Status Last Admin Dose Admin Aspirin 324 mg ONCE ONCE PO 04/30/19 14:00 04/30/19 14:01 DC 04/30/19 14:04 324 MG Iohexol 100 ml ONCE ONCE IV 04/30/19 14:30 04/30/19 14:35 DC 04/30/19 14:55 100 ML Sodium Chloride 100 ml ONCE ONCE IV 04/30/19 14:30 04/30/19 14:35 DC 04/30/19 14:55 80 ML (MIKEL CASTLE MD) Vital Signs/I&O 04/30/19 13:44 Temp 98.9 Pulse 85 Resp 22 B/P (MAP) 135/89 (104) Pulse Ox 97 O2 Delivery Room Air (MIKEL CASTLE MD) Progress Progress Note : Time: 13:30 Progress Note Pt seen by me. He reports having sharp chest pain intermittently for the past month that has gotten more frequent. He reports a history of cardiac electrophysiology study with ablation that has helped his previous symptoms. He currently is in no pain, but seems anxious about an aneurysm that was found previously. I spoke with Dr Castle about the case and he ordered CBC, CMP, Troponins, ECG, CXR, Aspirin. (DUDLEY MONTILLA) Progress Note : Progress Note Have seen and evaluated the patient and agree with above except as indicated. I have directed the plan of care. Patient is here with intermittent anterior left- sided chest pain is sharp and lasts for 15 seconds to over a minute. Initially there were brief but now seem to be lasting longer. No aggravating or relieving factors. States that it hurts quite a bit when it happens and he gets short of breath and has some sweating with that. It then resolves spontaneously. He does have an event monitor placed and that has not shown any ectopy per the patient. We will get labs, chest x-ray, EKG and initiate aspirin therapy. Anticipate CT angiogram of the chest to evaluate the aortic aneurysm. 1646: Patient did have CT complete and does not show any worsening of the aneurysm. Repeat troponin is negative. Pain-free currently. Patient will follow-up with Dr. Mesa. Discharged home with return precautions. Patient verbalize understanding instructions and agreement with plan. (MIKEL CASTLE MD) Initial ECG Impression Date: Apr 30, 2019 Initial ECG Impression Time: 13:27 Initial ECG Rate: 84 Initial ECG Rhythm: Normal Sinus Initial ECG Impression: Normal Initial ECG Comparisson: Changed Comment Sinus rhythm with normal axis. No evidence of ST elevation [place]. Change from previous of 01/02/19 and that that one had accelerated junctional rhythm. Interpreted by me. (MIKEL CASTLE MD) Diagnostic Imaging Diagonstic Imaging: Xray Plain Films/CT/US/NM/MRI: chest Comments [facility], [place] NAME: TRUPTI JUAREZ [facility] REC#: [id number] PT STATUS: REG ER : 1985 PHYSICIAN: MIKEL CASTLE MD ADMIT DATE: 04/30/19/ER Draft Date of Exam:04/30/19 CHEST 1 VIEW, AP/PA ONLY INDICATION: Chest pain. COMPARISON: 01/02/2019. FINDINGS: Single frontal view of the chest demonstrates normal heart size and pulmonary vascularity. The lungs are well aerated and clear. No large pleural effusion or pneumothorax is seen. The visualized osseous structures show no acute abnormalities. IMPRESSION: 1. No acute cardiopulmonary process. Dictated on workstation # [id number] Dict: 04/30/19 1432 Trans: 04/30/19 1436 [id number] Interpreted by: LEE WELCH MD Electronically signed by: Diagonstic Imaging: CT Plain Films/CT/US/NM/MRI: chest Comments NAME: TRUPTI JUAREZ [facility] REC#: [id number] PT STATUS: REG ER : 1985 PHYSICIAN: MIKEL CASTLE MD ADMIT DATE: 04/30/19/ER Signed Date of Exam: 04/30/19 CT ANGIO CHEST W PROCEDURE: CT angiography of the chest with contrast. TECHNIQUE: Multiple contiguous axial images were obtained through the chest after uneventful bolus administration of intravenous contrast. 3D reconstructed CTA MIP acquisitions were also performed. Auto Exposure Controls were utilized during the CT exam to meet ALARA standards for radiation dose reduction. DATE: April 30, 2019. COMPARISON: Chest radiograph, April 30, 2019. CT chest, January 01, 2019. INDICATION: 33-year-old male, chest pain several times a day for the past month. FINDINGS: There is no identified pulmonary nodule or lung mass. There is no focal airspace consolidation. There is no pneumothorax. There is no pleural effusion. The central airways are patent. There is no identified pulmonary embolus. The main pulmonary artery is normal in caliber. The heart is not enlarged. There is no pericardial effusion. The proximal ascending aorta measures up to approximately 4.8 x 3.8 cm in diameter. The distal ascending thoracic aorta measures up to approximately 4.6 x 4.5 cm in diameter. The descending thoracic aorta is normal in caliber. There is no evidence of acute aortic injury or aortic dissection. The heart is not enlarged. There is no pericardial effusion. There is no identified abnormally enlarged mediastinal, hilar or axillary lymph node which meets CT size criteria for adenopathy. Imaged portions of the abdominal aorta are normal in caliber. Additional CT evaluation of the imaged portions of the upper abdomen is unremarkable. There is no identified acute bony abnormality. IMPRESSION: CT chest: 1. Ascending thoracic aortic aneurysm measuring up to maximally 4.8 cm in diameter. 2. No cardiomegaly or evidence of pulmonary edema. 3. No identified acute cardiopulmonary abnormality. Dictated by: Dictated on workstation # [id number] Dict: 04/30/19 1504 Trans: 04/30/19 1643 Interpreted by: SANCHEZ HERRERA MD Electronically signed by: SANCHEZ HERRERA MD 04/30/19 6150 (MIKEL CASTLE MD) Departure Impression Primary Impression: Chest pain Qualified Codes: R07.9 - Chest pain, unspecified Disposition: 01 HOME, SELF-CARE Condition: Stable Departure-Patient Inst. Decision time for Depature: 16:50 (MIKEL CASTLE MD) Referrals: [facility] (PCP) Primary Care Physician YESSENIA HARDING APRN (Family) Primary Care Physician Yessi MESA MD Patient Instructions: Chest Pain (DC) Add. Discharge Instructions: All discharge instructions reviewed with patient and/or family. Voiced understanding. Follow-up with Dr. Mesa for recheck and further evaluation. Call his office in the morning for appointment. Discussed with him regarding the chest pain as well as your desire to start cardiac rehabilitation exercise program. Continue home meds as previously prescribed and recommended. Return for worse pain, fever, vomiting, weakness, breathing problems or other concerns as needed. Copy Copies To 1: Yessi MESA MD [facility] Apr 30, 2019 13:55 MIKEL CASTLE MD Apr 30, 2019 14:52
[2019-04-30] MEDS ORDERED: ASPIRIN 81 MG CHEW (CHILDREN'S ASA) PO ONE (14:00)
[2019-04-30 14:03] LABS: BASOPHILS % (AUTO) 0 % (0-10); EOSINOPHILS # (AUTO) 0.2 10^3/uL (0.0-0.3); EOSINOPHILS % (AUTO) 2 % (0-10); HEMATOCRIT 45 % (40-54); HEMOGLOBIN 16.3 G/DL (13.3-17.7); LYMPHOCYTES # (AUTO) 2.8 X 10^3 (1.0-4.0); LYMPHOCYTES % (AUTO) 30 % (12-44); MEAN CORPUSCULAR HEMOGLOBIN 30 PG (25-34); MEAN CORPUSCULAR HGB CONC 37 G/DL (32-36); MEAN CORPUSCULAR VOLUME 81 FL (80-99); MEAN PLATELET VOLUME 9.9 FL (7.4-10.4); MONOCYTES # (AUTO) 0.6 X 10^3 (0.0-1.0); MONOCYTES % (AUTO) 7 % (0-12); NEUTROPHILS # (AUTO) 5.5 X 10^3 (1.8-7.8); NEUTROPHILS % (AUTO) 60 % (42-75); PLATELET COUNT 215 10^3/uL (130-400); RED CELL DISTRIBUTION WIDTH 12.6 % (10.0-14.5); WHITE BLOOD COUNT 9.1 10^3/uL (4.3-11.0)
[2019-04-30 14:08] LABS: ALANINE AMINOTRANSFERASE 32 U/L (0-55); ALBUMIN 4.4 GM/DL (3.2-4.5); ALKALINE PHOSPHATASE 57 U/L (40-136); BILIRUBIN,TOTAL 0.3 MG/DL (0.1-1.0); BUN/CREATININE RATIO 12; CALCIUM 9.6 MG/DL (8.5-10.1); CARBON DIOXIDE 26 MMOL/L (21-32); CHLORIDE 105 MMOL/L (98-107); CREATININE SERUM 0.86 MG/DL (0.60-1.30); GFR ESTIMATED > 60; GLUCOSE 122 MG/DL (70-105); MAGNESIUM 1.9 MG/DL (1.6-2.4); SODIUM 140 MMOL/L (135-145); TOTAL PROTEIN 7.4 GM/DL (6.4-8.2)
[2019-04-30 14:14] LABS: FIBRIN DEGRADATION PRODUCTS <= 0.27 UG/ML (0.00-0.49); INR 0.9 (0.8-1.4); PARTIAL THROMBOPLASTIN TIME 29 SEC (24-35); PROTHROMBIN TIME PATIENT 12.6 SEC (12.2-14.7)
[2019-04-30 14:15] LABS: SMEAR SCAN COMMENT YES
--- NOTE | 2019-04-30 14:27 | NUR ---
chest pain re-assessed at this time after ASA admin. Pt reports no pain at this time.
[2019-04-30] MEDS ORDERED: NS 100 ML (IVPB) BAG IV ONE ×2 (14:30)
[2019-04-30] MEDS ORDERED: HOLD METFORMIN - RECEIVED CONTRAST 20 ML VIAL IV SCH (14:30)
[2019-04-30] MEDS ORDERED: IOHEXOL 350 MG/ML 100 ML (OMNIPAQUE 350) VIAL IV ONE (14:30)
[2019-04-30] MEDS ORDERED: IOHEXOL 350 MG/ML 150 ML (OMNIPAQUE 350) VIAL IV ONE (14:30)
--- NOTE | 2019-04-30 14:37 | Diagnostic Imaging Report ---
INDICATION: Chest pain. COMPARISON: 01/02/2019. FINDINGS: Single frontal view of the chest demonstrates normal heart size and pulmonary vascularity. The lungs are well aerated and clear. No large pleural effusion or pneumothorax is seen. The visualized osseous structures show no acute abnormalities. IMPRESSION: 1. No acute cardiopulmonary process. Dictated by: Dictated on workstation # [id number]
--- NOTE | 2019-04-30 15:20 | Diagnostic Imaging Report ---
PROCEDURE: CT angiography of the chest with contrast. TECHNIQUE: Multiple contiguous axial images were obtained through the chest after uneventful bolus administration of intravenous contrast. 3D reconstructed CTA MIP acquisitions were also performed. Auto Exposure Controls were utilized during the CT exam to meet ALARA standards for radiation dose reduction. DATE: April 30, 2019. COMPARISON: Chest radiograph, April 30, 2019. CT chest, January 01, 2019. INDICATION: 33-year-old male, chest pain several times a day for the past month. FINDINGS: There is no identified pulmonary nodule or lung mass. There is no focal airspace consolidation. There is no pneumothorax. There is no pleural effusion. The central airways are patent. There is no identified pulmonary embolus. The main pulmonary artery is normal in caliber. The heart is not enlarged. There is no pericardial effusion. The proximal ascending aorta measures up to approximately 4.8 x 3.8 cm in diameter. The distal ascending thoracic aorta measures up to approximately 4.6 x 4.5 cm in diameter. The descending thoracic aorta is normal in caliber. There is no evidence of acute aortic injury or aortic dissection. The heart is not enlarged. There is no pericardial effusion. There is no identified abnormally enlarged mediastinal, hilar or axillary lymph node which meets CT size criteria for adenopathy. Imaged portions of the abdominal aorta are normal in caliber. Additional CT evaluation of the imaged portions of the upper abdomen is unremarkable. There is no identified acute bony abnormality. IMPRESSION: CT chest: 1. Ascending thoracic aortic aneurysm measuring up to maximally 4.8 cm in diameter. 2. No cardiomegaly or evidence of pulmonary edema. 3. No identified acute cardiopulmonary abnormality. Dictated by: Dictated on workstation # [id number]
[2019-04-30 17:20] VITALS: BP 122/85
== END 2019-04-30 17:20 | disposition home or self-care (01) ==
LOC: EDUNIT# 13:20 → ER 13:21
DX: R07.2 Precordial pain (principal); F41.9 Anxiety disorder, unspecified; I48.91 Unspecified atrial fibrillation; E78.00 Pure hypercholesterolemia, unspecified; G43.909 Migraine, unspecified, not intractable, without status migrainosus; Z82.49 Family history of ischemic heart disease and other diseases of the circulatory system
CPT/HCPCS: 36415; 71045; 71275; 80053; 83735; 83874; 84484; 85025; 85379; 85610; 85730; 93005; 93041

== ENCOUNTER 2019-05-24 19:18 | Emergency (ER) | payer SELFPAY, OTHER | END 2019-05-24 21:52 | disposition home or self-care (01) | LOC: ER FS 19:18 ==

== ENCOUNTER 2019-07-12 16:24 | Emergency (ER) | payer SELFPAY ==
[~2019-07-12] VITALS: Ht 177 cm; Wt 140.5 kg
[2019-07-12 16:49] LABS: HEMATOCRIT 48 % (40-54); HEMOGLOBIN 17.2 G/DL (13.3-17.7); MEAN CORPUSCULAR HEMOGLOBIN 30 PG (25-34); MEAN CORPUSCULAR HGB CONC 36 G/DL (32-36); MEAN CORPUSCULAR VOLUME 83 FL (80-99); MEAN PLATELET VOLUME 9.8 FL (7.4-10.4); NEUTROPHILS % (AUTO) 69 % (42-75); PLATELET COUNT 232 10^3/uL (130-400); RED CELL DISTRIBUTION WIDTH 12.4 % (10.0-14.5); WHITE BLOOD COUNT 12.1 10^3/uL (4.3-11.0)
[2019-07-12 16:50] LABS: BASOPHILS % (AUTO) 0 % (0-10); EOSINOPHILS # (AUTO) 0.2 10^3/uL (0.0-0.3); EOSINOPHILS % (AUTO) 2 % (0-10); LYMPHOCYTES # (AUTO) 2.7 X 10^3 (1.0-4.0); LYMPHOCYTES % (AUTO) 23 % (12-44); MONOCYTES # (AUTO) 0.8 X 10^3 (0.0-1.0); MONOCYTES % (AUTO) 6 % (0-12); NEUTROPHILS # (AUTO) 8.4 X 10^3 (1.8-7.8)
[2019-07-12 16:56] LABS: INR 0.9 (0.8-1.4); PROTHROMBIN TIME PATIENT 12.7 SEC (12.2-14.7)
--- NOTE | 2019-07-12 16:56 | ED Chest Pain ---
General Chief Complaint: Chest Pain Stated Complaint: JAW PAIN Nursing Triage Note: PT REPORTS HE HAD A HEART CATH ON SUNDAY IN [place]. HE ASLO REPORTS HE HAD THE HEART CATH BECAUSE HE IS GETTING READY TO HAVE A BICUSPID AND AORTIC VALVE REPLACEMENT. PT REPORTS BILATERAL JAW PAIN TODAY WELL. Nursing Sepsis Screen: No Definite Risk History of Present Illness Date Seen by Provider: Jul 12, 2019 Time Seen by Provider: 16:51 Initial Comments 33-year-old male states that he has valvular heart disease and is anticipating aortic and bicuspid heart valve replacements also apparently has an aortic aneurysm which has been enlarging and he says is to be repaired as well says that 2 days ago he was in [place] and had a heart cath to workup all of this prior to seeing the cardiothoracic surgeon yesterday he noted bilateral jaw pain particularly on the right without any toothache and also pain and tenderness in the roof of his mouth he says he was not under general or intubated for this heart catheterization he does not have CAD apparently Allergies and Home Medications Allergies Coded Allergies: No Known Drug Allergies (Unverified , 01/01/19) Home Medications Metoprolol Succinate 100 Mg Tab.er.24h, 100 MG PO DAILY Prescribed by: ALEXUS MAHMOOD on 10/07/18 1431 Patient Home Medication List Home Medication List Reviewed: Yes Review of Systems Review of Systems Constitutional: No fever EENTM: Other (bilateral jaw pain right greater than left and hard palate area hurts) Respiratory: No Symptoms Reported Cardiovascular: No Symptoms Reported Gastrointestinal: No Symptoms Reported Genitourinary: No Symptoms Reported Musculoskeletal: no symptoms reported Skin: no symptoms reported Past Kxxqpmz-Nsnchp-Rlqtcc Hx Patient Social History Alcohol Use: Denies Use Recreational Drug Use: Yes Drug of Choice: marijuana Type Used: Cigarettes 2nd Hand Smoke Exposure: No Recent Foreign Travel: No Contact w/Someone Who Travel: No Recent Infectious Disease Expo: No Recent Hopitalizations: Yes Physical Abuse: No Sexual Abuse: No Mistreated: No Fear: No Immunizations Up To Date Date of Influenza Vaccine: Jun 03, 2018 Seasonal Allergies Seasonal Allergies: No Past Medical History Surgeries: Yes (ablation-svt/a-fib, LOOP RECORDER 01/02/19) Cardiac Respiratory: No Cardiac: Yes Atrial Fibrillation, High Cholesterol, Irregular Heartbeat Neurological: Yes Headaches /Migraines Genitourinary: No Gastrointestinal: No Musculoskeletal: Yes Chronic Back Pain Endocrine: No HEENT: No Cancer: No Psychosocial: No Integumentary: No Blood Disorders: No Adverse Reaction/Blood Tranf: No Family Medical History Hypertension Physical Exam Vital Signs Vital Signs - First Documented 07/12/19 16:41 Temp 36.3 Pulse 87 Resp 18 B/P (MAP) 141/88 (105) Pulse Ox 99 O2 Delivery Room Air Capillary Refill : Less Than 3 Seconds Height, Weight, BMI Height: 5'11.00" Weight: 308lbs. 0.0oz. 139.993897co; 44.00 BMI Method:Stated General Appearance: No Apparent Distress, WD/WN HEENT: PERRL/EOMI, Normal ENT Inspection, Pharynx Normal, Other (mandible teeth floor of mouth oropharynx palate all appear normal) Neck: Non Tender, Supple Respiratory: Chest Non Tender Cardiovascular: Regular Rate, Rhythm, Systolic Murmur Gastrointestinal: Normal Bowel Sounds, Non Tender, Soft Extremity: No Non Tender, No Swelling Progress/Results/Core Measures Results/Orders Lab Results Laboratory Tests Test 07/12/19 16:30 Range/Units White Blood Count 12.1 H 4.3-11.0 10^3/uL Red Blood Count 5.77 4.35-5.85 10^6/uL Hemoglobin 17.2 13.3-17.7 G/DL Hematocrit 48 40-54 % Mean Corpuscular Volume 83 80-99 FL Mean Corpuscular Hemoglobin 30 25-34 PG Mean Corpuscular Hemoglobin Concent 36 32-36 G/DL Red Cell Distribution Width 12.4 10.0-14.5 % Platelet Count 232 130-400 10^3/uL Mean Platelet Volume 9.8 7.4-10.4 FL Neutrophils (%) (Auto) 69 42-75 % Lymphocytes (%) (Auto) 23 12-44 % Monocytes (%) (Auto) 6 0-12 % Eosinophils (%) (Auto) 2 0-10 % Basophils (%) (Auto) 0 0-10 % Neutrophils # (Auto) 8.4 H 1.8-7.8 X 10^3 Lymphocytes # (Auto) 2.7 1.0-4.0 X 10^3 Monocytes # (Auto) 0.8 0.0-1.0 X 10^3 Eosinophils # (Auto) 0.2 0.0-0.3 10^3/uL Basophils # (Auto) 0.0 0.0-0.1 10^3/uL Prothrombin Time 12.7 12.2-14.7 SEC INR Comment 0.9 0.8-1.4 Sodium Level 138 135-145 MMOL/L Potassium Level 3.9 3.6-5.0 MMOL/L Chloride Level 100 98-107 MMOL/L Carbon Dioxide Level 23 21-32 MMOL/L Anion Gap 15 H 5-14 MMOL/L Blood Urea Nitrogen 9 7-18 MG/DL Creatinine 0.78 0.60-1.30 MG/DL Estimat Glomerular Filtration Rate > 60 BUN/Creatinine Ratio 12 Glucose Level 107 H 70-105 MG/DL Calcium Level 9.7 8.5-10.1 MG/DL Corrected Calcium 8.5-10.1 MG/DL Total Bilirubin 0.5 0.1-1.0 MG/DL Aspartate Amino Transf (AST/SGOT) 26 5-34 U/L Alanine Aminotransferase (ALT/SGPT) 33 0-55 U/L Alkaline Phosphatase 73 40-136 U/L Troponin I < 0.30 <0.30 NG/ML Total Protein 8.0 6.4-8.2 GM/DL Albumin 4.6 H 3.2-4.5 GM/DL My Orders Orders - HINA JORGE MD Iv Heplock-Insert (Order) (07/12/19 16:40) Cbc With Automated Diff (07/12/19 16:40) Troponin I Fs (07/12/19 16:40) Protime With Inr (07/12/19 16:40) [employer] (07/12/19 16:40) Ekg Tracing (07/12/19 16:40) Chest 1 View Ap/Pa Only (07/12/19 16:40) Comprehensive Metabolic Panel (07/12/19 16:40) Fentanyl Injection (Sublimaze Injection (07/12/19 18:15) Ct Angio Chest W (07/12/19 18:06) Ct Angio Neck W (07/12/19 18:06) Lorazepam Injection (Ativan Injection) (07/12/19 18:15) Iohexol Injection (Omnipaque 350 Mg/Ml 1 (07/12/19 18:30) Received Contrast (Hold Metformin- Contr (07/12/19 18:30) Sodium Chloride Flush (Catheter Flush Sy (07/12/19 18:30) Ns (Ivpb) (Sodium Chloride 0.9% Ivpb Bag (07/12/19 18:30) Ns Iv 1000 Ml (Sodium Chloride 0.9%) (07/12/19 19:00) Medications Given in ED Current Medications Medications Dose Ordered Sig/Helder Route Start Time Stop Time Status Last Admin Dose Admin Fentanyl Citrate 50 mcg ONCE ONCE IVP 07/12/19 18:15 07/12/19 18:16 DC 07/12/19 18:12 50 MCG Iohexol 150 ml ONCE ONCE IV 07/12/19 18:30 07/12/19 18:31 UNV 07/12/19 19:17 150 ML Lorazepam 1 mg ONCE ONCE IVP 07/12/19 18:15 07/12/19 18:16 DC 07/12/19 18:15 1 MG Sodium Chloride 100 ml ONCE ONCE IV 07/12/19 18:30 07/12/19 18:31 UNV 07/12/19 19:17 80 ML Vital Signs/I&O 07/12/19 07/12/19 16:41 16:47 Temp 36.3 Pulse 87 Resp 18 B/P (MAP) 141/88 (105) Pulse Ox 99 O2 Delivery Room Air Room Air Blood Pressure Mean: 105 POS Progress Progress Note : Progress Note Hemoglobin is 17.2 white count 12,100 CMP normal creatinine 0.8 troponin is negative INR 0.9 Review the records here show the patient has had 3 CT chest angio's The highest recorded dimension of his ascending aortic aneurysm was on the study of January 01 which was 4.9 cm Since then the max dimensions have all been less Patient now is complaining bitterly of pain in his right jaw much different than when he presented will therefore do CT with contrast of neck and chest says he doesn't have a toothache it does hurt to bite down seemingly more so in the TMJ area CT neck with IV contrast no pathologic findings CT chest stable ascending aortic aneurysm dx R jaw pain uncertain etiology Rx tramadol and keflex Comment EKG shows sinus rhythm at 84 no acute changes Departure Impression Primary Impression: Jaw pain Disposition: 01 HOME, SELF-CARE Condition: Stable Departure-Patient Inst. Decision time for Depature: 19:52 Referrals: [facility] ([facility] Primary Care Physician YESSENIA HARDING APRN (Family) Primary Care Physician Patient Instructions: Temporomandibular Joint (TMJ) Disorders (DC) Scripts Tramadol HCl (Tramadol HCl) 50 Mg Tablet 50 MG PO Q6H PRN for PAIN for 3 Days, #20 TAB 0 Refills Prov: HINA JORGE MD 07/12/19 Clindamycin HCl (Clindamycin HCl) 300 Mg Capsule 300 MG PO TID, #21 CAP Prov: HINA JORGE MD 07/12/19 HINA JORGE MD Jul 12, 2019 16:56 POS
[2019-07-12 17:05] LABS: ALANINE AMINOTRANSFERASE 33 U/L (0-55); ALKALINE PHOSPHATASE 73 U/L (40-136); BILIRUBIN,TOTAL 0.5 MG/DL (0.1-1.0); BUN/CREATININE RATIO 12; CALCIUM 9.7 MG/DL (8.5-10.1); CARBON DIOXIDE 23 MMOL/L (21-32); CHLORIDE 100 MMOL/L (98-107); CREATININE SERUM 0.78 MG/DL (0.60-1.30); GFR ESTIMATED > 60; GLUCOSE 107 MG/DL (70-105); POTASSIUM 3.9 MMOL/L (3.6-5.0); SODIUM 138 MMOL/L (135-145)
[2019-07-12 17:06] LABS: ALBUMIN 4.6 GM/DL (3.2-4.5)
--- NOTE | 2019-07-12 17:11 | Diagnostic Imaging Report ---
Patient History: Chest pain. Jaw pain.. Technique: Single frontal view of the chest Comparison: 05/24/2019 FINDINGS: The lung volumes are normal. No focal consolidation is seen. No large pleural effusion or pneumothorax is seen. The cardiomediastinal silhouette is normal in size and contour. No acute osseous abnormality is seen. IMPRESSION: 1. No acute pleuroparenchymal process. Dictated by: Dictated on workstation # [id number]
[2019-07-12] MEDS ORDERED: LORazepam INJ 2 MG/ML (ATIVAN) VIAL IVP ONE (18:15)
[2019-07-12] MEDS ORDERED: fentaNYL INJECTION 100 MCG/2 ML AMP IVP ONE (18:15)
[2019-07-12] MEDS ORDERED: CATHETER FLUSH 10 ML SYR IV PRN (18:30)
[2019-07-12] MEDS ORDERED: NS 100 ML (IVPB) BAG IV ONE (18:30)
[2019-07-12] MEDS ORDERED: HOLD METFORMIN - RECEIVED CONTRAST 20 ML VIAL IV SCH (18:30)
[2019-07-12] MEDS ORDERED: IOHEXOL 350 MG/ML 150 ML (OMNIPAQUE 350) VIAL IV ONE (18:30)
[2019-07-12] MEDS ORDERED: NS IV 1000 ML 1,000 ML IV SCH (19:00)
--- NOTE | 2019-07-12 19:21 | Diagnostic Imaging Report ---
REASON FOR EXAM: Jaw pain. Chest pain. TIME OF EXAM: 07/12/2019 7:09 PM COMPARISON: None TECHNIQUE: Contrast-enhanced thin section helical images were obtained from the mediastinum to the sella with the bolus of contrast timed for the optimal opacification of the arterial structures of the neck per departmental CTA protocol. Postprocessing and retro-reconstruction with coronal and sagittal reformatted images of the angiographic views of the vessels were obtained and were reviewed. 3D reformatted images were generated on a separate workstation and were reviewed. FINDINGS: The visualized portions of the aortic arch demonstrate aneurysmal dilation of the ascending aorta. The origin of the arch vessels is unremarkable. The brachiocephalic artery is normal in course and caliber. The right common carotid origin is unremarkable. The right subclavian artery is normal in course and caliber. Both common carotid arteries are normal in course and caliber. The bilateral origins of the vertebral arteries demonstrate no acute abnormalities. The left vertebral artery is dominant. The distal bilateral common carotid arteries, internal carotid arteries, and external carotid arteries are suboptimally evaluated. The vertebral arteries distal to the C4 level are also suboptimally evaluated. No gross abnormalities are visualized. No large fluid collection or mass is seen in the neck. No acute osseous abnormalities are seen in the cervical spine. Included views through the lung apices demonstrate no focal consolidation. Included views through the intracranial structures demonstrate no acute abnormalities. IMPRESSION: 1. Suboptimal angiographic evaluation of the bilateral distal carotid arteries, carotid bulbs, internal carotid arteries, and external carotid arteries. The bilateral vertebral arteries are also suboptimally evaluated distal to the C4 level. This is due to inadequate timing of the contrast bolus. No gross abnormalities are visualized. No fluid collection or mass is seen in the neck. No evidence of calcified atherosclerotic disease is seen. The origin of the carotid and vertebral arteries unremarkable. 2. Aneurysmal dilation of the ascending thoracic aorta. Dictated by: Dictated on workstation # [id number]
--- NOTE | 2019-07-12 19:28 | NUR ---
This RN went into the patients room to give the fluid ordered. Patient asked this RN how long he was going to be here and states "I have only been here all day". Patient also states that he is considering leaving AMA because nobody was doing anything for him. This RN advised that we were waiting on his latest CT results and that they were not back at this time.
--- NOTE | 2019-07-12 19:38 | Diagnostic Imaging Report ---
PROCEDURE: CT angiography of the chest with contrast. TECHNIQUE: Multiple contiguous axial images were obtained through the chest after uneventful bolus administration of intravenous contrast. 3D reconstructed CTA MIP acquisitions were also performed. Auto Exposure Controls were utilized during the CT exam to meet ALARA standards for radiation dose reduction. INDICATION: Chest pain. Jaw pain. COMPARISON: 04/30/2019 FINDINGS: Stable appearance of the ascending thoracic aneurysm measuring approximately 4.7 cm. No periaortic inflammatory changes are seen. No hematoma is seen within the mediastinum. The descending thoracic aorta is unremarkable. No evidence of pulmonary embolism is seen on this nondedicated study. The heart is unremarkable without evidence of pericardial effusion. There is no axillary, mediastinal, or hilar adenopathy. The lungs demonstrate no consolidation, nodules, or other parenchymal abnormality. No pleural effusion is seen. Osseous structures appear normal. Hepatic steatosis is noted. No focal hepatic lesions are seen. No acute abnormalities in the upper abdomen. IMPRESSION: 1. Stable appearance of the ascending thoracic aneurysm. No periaortic inflammatory changes or mediastinal hematoma. 2. No focal consolidation in the lungs. 3. Hepatic steatosis. Dictated by: Dictated on workstation # [id number]
--- NOTE | 2019-07-12 19:47 | NUR ---
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
--- NOTE | 2019-07-12 19:50 | NUR ---
Patient did not want to finish the fluids. Patient had 200 mls in.
[2019-07-12] MEDS ORDERED: TRAM50TA2 PO (19:57)
[2019-07-12] MEDS ORDERED: CLIN300C11 PO (19:57)
[2019-07-12 20:01] VITALS: BP 127/77
== END 2019-07-12 20:01 | disposition home or self-care (01) ==
LOC: EDUNIT# 16:24 → ER FS 16:25
DX: R68.84 Jaw pain (principal); I48.91 Unspecified atrial fibrillation; E78.00 Pure hypercholesterolemia, unspecified; G43.909 Migraine, unspecified, not intractable, without status migrainosus; Z82.49 Family history of ischemic heart disease and other diseases of the circulatory system
CPT/HCPCS: 36415; 70498; 71045; 71275; 80053; 84484; 85025; 85610; 93005

== ENCOUNTER 2019-08-16 17:36 | Emergency (ER) | payer SELFPAY ==
[~2019-08-16] VITALS: Ht 180 cm; Wt 143.5 kg
[~2019-08-16 17:36] MED LIST changes: +CLIN300C11 PO; +TRAM50TA2 PO
--- NOTE | 2019-08-16 18:13 | ED General ---
General Chief Complaint: Head/Cervical Problems Stated Complaint: NECK/SHOULDER PAIN Nursing Triage Note: Patient reports intermittent left sided neck pain that radiates down his left shoulder, states he has been having pain for 1 week. Patient has extensive cardiac history, including v-tach requiring cardioversion, ascending aortic aneurysm, and bicuspid valve dysfunction. Nursing Sepsis Screen: No Definite Risk History of Present Illness Date Seen by Provider: Aug 16, 2019 Time Seen by Provider: 17:35 Initial Comments The patient is a 33-year-old male with a history of ascending thoracic aortic aneurysm and what sounds like bicuspid aortic valve, following with cardiothoracic surgery at [facility], as well as history of SVT and atrial fibrillation status post ablation by cardiac electrophysiology. Per records, he has had heart catheterizations which demonstrate no evidence of coronary artery disease. He continues to actively smoke cigarettes. The patient presents for evaluation of intermittent episodes of rather severe left-sided neck pain with radiation down the left shoulder at times. Patient also reports sharp, focal left upper quadrant abdominal pain at times recently. These symptoms have been present for the last 1 week. The patient also notes persistent left-sided focal sharp chest discomfort for which he has repeatedly been evaluated and for which no organic/anatomic etiology has been identified. Chest pains have been present for many months now. Mr. Parrish has a history of repeated presentations for various pains affecting his neck and thorax and in view of his complicated cardiac history has had a number of CT angiograms within the last few months. These have shown a decrease in size in his known thoracic aortic aneurysm and no other acute process. Pain symptoms occur in the setting of upper respiratory symptoms and diarrhea over the last 2 weeks which have largely resolved aside from mild persistent cough and congestion. He states he feels quite a bit better than he did last week from a respiratory standpoint. The patient is alert and oriented and pleasantly and appropriately interactive and in no significant distress on initial assessment in the emergency department. Vital signs are appropriate here. Allergies and Home Medications Allergies Coded Allergies: No Known Drug Allergies (Unverified , 01/01/19) Home Medications Clindamycin HCl 300 Mg Capsule, 300 MG PO TID Prescribed by: HINA JORGE on 07/12/191956 Metoprolol Succinate 100 Mg Tab.er.24h, 100 MG PO DAILY Prescribed by: ALEXUS MAHMOOD on 10/07/18 1431 Tramadol HCl 50 Mg Tablet, 50 MG PO Q6H PRN for PAIN Prescribed by: HINA JORGE on 07/12/191956 Patient Home Medication List Home Medication List Reviewed: Yes Review of Systems Review of Systems Constitutional: see HPI All Other Systems Reviewed Negative Unless Noted: Yes (Negative excepted noted.) Past Hzkrgge-Kzuiqi-Sjiutb Hx Past Med/Social Hx: Reviewed Nursing Past Med/Soc Hx Patient Social History Alcohol Use: Denies Use Recreational Drug Use: Yes Drug of Choice: marijuana Smoking Status: Current Everyday Smoker Type Used: Cigarettes 2nd Hand Smoke Exposure: No Recent Foreign Travel: No Contact w/Someone Who Travel: No Recent Infectious Disease Expo: No Recent Hopitalizations: Yes Physical Abuse: No Sexual Abuse: No Mistreated: No Fear: No Immunizations Up To Date Date of Influenza Vaccine: Jun 03, 2018 Seasonal Allergies Seasonal Allergies: No Past Medical History Surgeries: Yes (ablation-svt/a-fib, LOOP RECORDER 01/02/19) Cardiac Respiratory: No Cardiac: Yes (ascending aortic aneurysm, bicuspid valve dysfunction, V-tach) Aneurysm, Atrial Fibrillation, Heart Murmur, High Cholesterol, Irregular Heartbeat, Palpitations Neurological: Yes Headaches /Migraines Genitourinary: No Gastrointestinal: No Musculoskeletal: Yes Chronic Back Pain Endocrine: No HEENT: No Cancer: No Psychosocial: No Integumentary: No Blood Disorders: No Adverse Reaction/Blood Tranf: No Family Medical History Reviewed Nursing Family Hx Hypertension Physical Exam Vital Signs Vital Signs - First Documented 08/16/19 17:40 Temp 36.2 Pulse 95 Resp 13 B/P (MAP) 124/72 (89) Pulse Ox 94 O2 Delivery Room Air Capillary Refill : Less Than 3 Seconds Height, Weight, BMI Height: 5'11.00" Weight: 308lbs. 0.0oz. [id number]; 44.00 BMI Method:Stated General Appearance: No Apparent Distress Comments This is a younger male appearing nontoxic and in no acute distress. Head is normocephalic and atraumatic. Neck is supple and nontender. Oropharynx is moist. Lungs are clear to auscultation in all stations. There is a normal S1 and S2 without rubs or gallops and capillary refill is appropriate, less than 2 seconds globally. There is a harshsounding systolic murmur. Abdomen is soft and nondistended with mild left upper quadrant abdominal tenderness to palpation without rebound or guarding. There is no pulsatile mass to the abdomen. Skin is warm and dry without cyanosis, clubbing or edema. Psychiatrically, the patient demonstrates appropriate mood and affect and is alert. Progress/Results/Core Measures Suspected Sepsis Recent Fever Within 48 Hours: No Infection Criteria Present: None New/Unexplained Altered Menta: No Sepsis Screen: No Definite Risk SIRS Temperature: Pulse: 95 Respiratory Rate: 13 Laboratory Tests 08/16/19 18:15: White Blood Count 9.9 Blood Pressure 124 /72 Mean: 89 Laboratory Tests 08/16/19 18:15: Creatinine 0.81, INR Comment 0.9, Platelet Count 198, Total Bilirubin 0.5 Results/Orders Lab Results Laboratory Tests Test 08/16/19 18:15 Range/Units White Blood Count 9.9 4.3-11.0 10^3/uL Red Blood Count 5.27 4.35-5.85 10^6/uL Hemoglobin 15.3 13.3-17.7 G/DL Hematocrit 44 40-54 % Mean Corpuscular Volume 83 80-99 FL Mean Corpuscular Hemoglobin 29 25-34 PG Mean Corpuscular Hemoglobin Concent 35 32-36 G/DL Red Cell Distribution Width 12.4 10.0-14.5 % Platelet Count 198 130-400 10^3/uL Mean Platelet Volume 9.7 7.4-10.4 FL Neutrophils (%) (Auto) 66 42-75 % Lymphocytes (%) (Auto) 26 12-44 % Monocytes (%) (Auto) 6 0-12 % Eosinophils (%) (Auto) 2 0-10 % Basophils (%) (Auto) 0 0-10 % Neutrophils # (Auto) 6.6 1.8-7.8 X 10^3 Lymphocytes # (Auto) 2.5 1.0-4.0 X 10^3 Monocytes # (Auto) 0.6 0.0-1.0 X 10^3 Eosinophils # (Auto) 0.2 0.0-0.3 10^3/uL Basophils # (Auto) 0.0 0.0-0.1 10^3/uL Prothrombin Time 12.9 12.2-14.7 SEC INR Comment 0.9 0.8-1.4 Activated Partial Thromboplast Time 28 24-35 SEC Sodium Level 138 135-145 MMOL/L Potassium Level 3.9 3.6-5.0 MMOL/L Chloride Level 103 98-107 MMOL/L Carbon Dioxide Level 23 21-32 MMOL/L Anion Gap 12 5-14 MMOL/L Blood Urea Nitrogen 12 7-18 MG/DL Creatinine 0.81 0.60-1.30 MG/DL Estimat Glomerular Filtration Rate > 60 BUN/Creatinine Ratio 15 Glucose Level 117 H 70-105 MG/DL Calcium Level 9.0 8.5-10.1 MG/DL Corrected Calcium 8.8 8.5-10.1 MG/DL Total Bilirubin 0.5 0.1-1.0 MG/DL Aspartate Amino Transf (AST/SGOT) 26 5-34 U/L Alanine Aminotransferase (ALT/SGPT) 23 0-55 U/L Alkaline Phosphatase 61 40-136 U/L Troponin I < 0.30 <0.30 NG/ML Pro-B-Type Natriuretic Peptide 56.6 <75.0 PG/ML Total Protein 7.0 6.4-8.2 GM/DL Albumin 4.3 3.2-4.5 GM/DL My Orders Orders - DANISH PARKER MD Ct Angio Chest/Abd/Pelv W (08/16/19 17:58) Ct Angio Neck W (08/16/19 17:58) Cbc With Automated Diff (08/16/19 17:58) Comprehensive Metabolic Panel (08/16/19 17:58) Troponin I Fs (08/16/19 17:58) Ekg Tracing (08/16/19 17:58) Protime With Inr (08/16/19 17:58) Partial Thromboplastin Time (08/16/19 17:58) Probnp Fs (08/16/19 17:58) Iohexol Injection (Omnipaque 350 Mg/Ml 1 (08/16/19 18:15) Received Contrast (Hold Metformin- Contr (08/16/19 18:15) Sodium Chloride Flush (Catheter Flush Sy (08/16/19 18:15) Ns (Ivpb) (Sodium Chloride 0.9% Ivpb Bag (08/16/19 18:15) Medications Given in ED Current Medications Medications Dose Ordered Sig/Helder Route Start Time Stop Time Status Last Admin Dose Admin Iohexol 150 ml ONCE ONCE IV 08/16/19 18:15 08/16/19 18:16 DC 08/16/19 18:43 150 ML Sodium Chloride 10 ml NEEDED PRN IV 08/16/19 18:15 08/16/19 18:43 10 ML Sodium Chloride 100 ml ONCE ONCE IV 08/16/19 18:15 08/16/19 18:16 DC 08/16/19 18:43 100 ML Vital Signs/I&O 08/16/19 17:40 Temp 36.2 Pulse 95 Resp 13 B/P (MAP) 124/72 (89) Pulse Ox 94 O2 Delivery Room Air Capillary Refill : Less Than 3 Seconds Blood Pressure Mean: 89 POS Progress Note : Time: 18:16 Progress Note Clinical examination reassuring. 33-year-old male with known thoracic ascending aortic aneurysm who presents with intermittent sharp and rather severe left neck and shoulder discomfort as well as persistent chest discomfort over many months. Has been repeatedly imaged and otherwise worked up without evidence of acute process here in the emergency department. Newly reporting abdominal pain today. Unclear whether his abdomen has ever been imaged from a vascular standpoint. Feel it is unlikely that there is acute vascular pathology contributing to the patient's presentation today but feel this cannot be ruled out given the overall scenario (question the presence of an underlying collagen vascular disease or other congenital issue which is as yet not well characterized). We will go ahead and check labs and EKG and CT angiography as noted, including imaging of the abdomen. We will then reevaluate. If workup is reassuring, plan will likely be for discharge to follow up very closely with primary care and with cardiothoracic surgery and cardiology as scheduled. Patient understands and agrees with this plan of care. Time spent encouraging Mr. Parrish to quit smoking as it is the one significant modifiable risk factor here. Update 1930: Large workup unremarkable and reassuring including angiography of the neck, chest, abdomen and pelvis. Reassurance provided to the patient. He is to follow-up with his cardiothoracic surgeon regarding his thoracic aortic aneurysm and with cardiology regarding his ongoing chest discomfort. I have also encouraged him to follow up closely with primary care within the next 2-4 days. He understands that if he feels worse instead of better, develops recurrent severe symptoms or any other new symptoms of concern that she should return to the emergency Department immediately for reevaluation. All questions are answered. ECG Comment Sinus rhythm, no acute ST elevation or depression, rate 76, NC 153, QRS 101, QTC 423, EP interpretation. Diagnostic Imaging Comments CT ANGIO CHEST/ABD/PELV W PROCEDURE: CT angiography of the chest with contrast and CT abdomen and pelvis with contrast. TECHNIQUE: Multiple contiguous axial images were obtained through the chest, abdomen and pelvis after administration of intravenous contrast. 3D MIP reconstructed CT angiography acquisitions of the aorta were then performed. Auto Exposure Controls were utilized during the CT exam to meet ALARA standards for radiation dose reduction. INDICATION: Intermittent left-sided neck pain radiating into the left shoulder. Known aneurysm. COMPARISON: 07/12/2019 FINDINGS: CT CHEST: The heart is normal in size. There is an ascending aortic aneurysm measuring 5.0 x 4.6 cm on axial imaging. There is significant motion artifact, but this appears stable in size compared to the prior exam. There is no evidence of contrast extravasation. No dissection is seen. The branch vessels are unremarkable at the aortic arch. The remaining of the aorta demonstrates normal caliber with no dissection identified although the distal abdominal aorta is suboptimally visualized. The SMA, celiac trunk, and DOROTA appear patent. There is no pericardial effusion. No central pulmonary embolus is seen. There is dependent atelectasis in the lungs. No pleural effusion or pneumothorax is seen. No acute osseous abnormality is seen. CT abdomen/pelvis: The liver demonstrates no focal lesions. The spleen appears normal. The pancreas is normal. The adrenal glands are normal. The kidneys are unremarkable. The bowel loops are nondistended without obstruction. The appendix appears normal. No free fluid or free air is seen. No acute osseous abnormality is seen. IMPRESSION: 1. Stable aneurysm of the ascending aorta. No dissection seen. The remainder of the aorta and visible branch vessels is unremarkable. 2. No other acute abnormality seen in the chest, abdomen or pelvis. Dictated on workstation # [id number] CT ANGIO NECK W HISTORY: Intermittent left-sided neck pain radiating to the left shoulder. History of known aneurysm. COMPARISON: 07/12/2019 TECHNIQUE: Axial CT of the neck was performed following intravenous administration of contrast timed for evaluation of the arterial structures with sagittal and coronal and MIP reformats. FINDINGS: Contrast is suboptimal superiorly due to timing. No focal stenosis or occlusion is seen in the bilateral internal or common carotid arteries. The left vertebral artery is slightly dominant. No definite occlusion is seen in the vertebral arteries bilaterally. Imaged portion of the subclavian arteries appear normal. The cervical spine demonstrates mild degenerative change with no acute osseous abnormality. The soft tissues about the neck demonstrate no acute abnormality although the left thyroid is either markedly diminutive or absent. There is fluid in the maxillary sinuses with mucous retention cysts or mucosal thickening. IMPRESSION: 1. Suboptimal bolus timing at the arteries of the neck superiorly, but no occlusion or high-grade stenosis is appreciated. 2. Findings suggestive of bilateral maxillary sinusitis. Dictated on workstation # [id number] Departure Impression Primary Impression: Neck pain on left side Additional Impression: Left shoulder pain Qualified Codes: M25.512 - Pain in left shoulder Disposition: HOME, SELF-CARE Condition: Stable Departure-Patient Inst. Decision time for Depature: 19:34 Referrals: [facility]/JENNIFER (PCP) Primary Care Physician YESSENIA HARDING APRN (Family) Primary Care Physician Patient Instructions: Neck Pain, Shoulder Pain (DC) Add. Discharge Instructions: Testing was reassuring today. Please follow up very closely in the primary care clinic in the next 2-4 days. You should also plan follow-up with cardiology as well as with your cardiothoracic surgeon within the next 1 week. Return to the emergency department right away with recurrent symptoms, worsening symptoms or with any other new symptoms of concern. Scripts Cyclobenzaprine HCl (Cyclobenzaprine HCl) 10 Mg Tablet 10 MG PO Q8H PRN for SPASMS, #15 TAB 0 Refills Prov: DANISH PARKER MD 08/16/19 DANISH PARKER MD Aug 16, 2019 18:13 POS
[2019-08-16] MEDS ORDERED: IOHEXOL 350 MG/ML 150 ML (OMNIPAQUE 350) VIAL IV ONE (18:15)
[2019-08-16] MEDS ORDERED: NS 100 ML (IVPB) BAG IV ONE (18:15)
[2019-08-16] MEDS ORDERED: HOLD METFORMIN - RECEIVED CONTRAST 20 ML VIAL IV SCH (18:15)
[2019-08-16] MEDS ORDERED: CATHETER FLUSH 10 ML SYR IV PRN (18:15)
[2019-08-16 18:23] LABS: HEMATOCRIT 44 % (40-54); HEMOGLOBIN 15.3 G/DL (13.3-17.7); MEAN CORPUSCULAR HEMOGLOBIN 29 PG (25-34); MEAN CORPUSCULAR HGB CONC 35 G/DL (32-36); MEAN CORPUSCULAR VOLUME 83 FL (80-99); MEAN PLATELET VOLUME 9.7 FL (7.4-10.4); PLATELET COUNT 198 10^3/uL (130-400); RED CELL DISTRIBUTION WIDTH 12.4 % (10.0-14.5); WHITE BLOOD COUNT 9.9 10^3/uL (4.3-11.0)
[2019-08-16 18:24] LABS: BASOPHILS % (AUTO) 0 % (0-10); EOSINOPHILS # (AUTO) 0.2 10^3/uL (0.0-0.3); EOSINOPHILS % (AUTO) 2 % (0-10); LYMPHOCYTES # (AUTO) 2.5 X 10^3 (1.0-4.0); LYMPHOCYTES % (AUTO) 26 % (12-44); MONOCYTES # (AUTO) 0.6 X 10^3 (0.0-1.0); MONOCYTES % (AUTO) 6 % (0-12); NEUTROPHILS # (AUTO) 6.6 X 10^3 (1.8-7.8); NEUTROPHILS % (AUTO) 66 % (42-75)
[2019-08-16 18:36] LABS: INR 0.9 (0.8-1.4); PROTHROMBIN TIME PATIENT 12.9 SEC (12.2-14.7)
[2019-08-16 18:58] LABS: ALANINE AMINOTRANSFERASE 23 U/L (0-55); ALKALINE PHOSPHATASE 61 U/L (40-136); BILIRUBIN,TOTAL 0.5 MG/DL (0.1-1.0); BUN/CREATININE RATIO 15; CARBON DIOXIDE 23 MMOL/L (21-32); CHLORIDE 103 MMOL/L (98-107); CREATININE SERUM 0.81 MG/DL (0.60-1.30); GFR ESTIMATED > 60; GLUCOSE 117 MG/DL (70-105); POTASSIUM 3.9 MMOL/L (3.6-5.0); SODIUM 138 MMOL/L (135-145)
[2019-08-16 18:59] LABS: ALBUMIN 4.3 GM/DL (3.2-4.5)
--- NOTE | 2019-08-16 19:24 | Diagnostic Imaging Report ---
HISTORY: Intermittent left-sided neck pain radiating to the left shoulder. History of known aneurysm. COMPARISON: 07/12/2019 TECHNIQUE: Axial CT of the neck was performed following intravenous administration of contrast timed for evaluation of the arterial structures with sagittal and coronal and MIP reformats. FINDINGS: Contrast is suboptimal superiorly due to timing. No focal stenosis or occlusion is seen in the bilateral internal or common carotid arteries. The left vertebral artery is slightly dominant. No definite occlusion is seen in the vertebral arteries bilaterally. Imaged portion of the subclavian arteries appear normal. The cervical spine demonstrates mild degenerative change with no acute osseous abnormality. The soft tissues about the neck demonstrate no acute abnormality although the left thyroid is either markedly diminutive or absent. There is fluid in the maxillary sinuses with mucous retention cysts or mucosal thickening. IMPRESSION: 1. Suboptimal bolus timing at the arteries of the neck superiorly, but no occlusion or high-grade stenosis is appreciated. 2. Findings suggestive of bilateral maxillary sinusitis. Dictated by: Dictated on workstation # [id number]
--- NOTE | 2019-08-16 19:28 | Diagnostic Imaging Report ---
PROCEDURE: CT angiography of the chest with contrast and CT abdomen and pelvis with contrast. TECHNIQUE: Multiple contiguous axial images were obtained through the chest, abdomen and pelvis after administration of intravenous contrast. 3D MIP reconstructed CT angiography acquisitions of the aorta were then performed. Auto Exposure Controls were utilized during the CT exam to meet ALARA standards for radiation dose reduction. INDICATION: Intermittent left-sided neck pain radiating into the left shoulder. Known aneurysm. COMPARISON: 07/12/2019 FINDINGS: CT CHEST: The heart is normal in size. There is an ascending aortic aneurysm measuring 5.0 x 4.6 cm on axial imaging. There is significant motion artifact, but this appears stable in size compared to the prior exam. There is no evidence of contrast extravasation. No dissection is seen. The branch vessels are unremarkable at the aortic arch. The remaining of the aorta demonstrates normal caliber with no dissection identified although the distal abdominal aorta is suboptimally visualized. The SMA, celiac trunk, and DOROTA appear patent. There is no pericardial effusion. No central pulmonary embolus is seen. There is dependent atelectasis in the lungs. No pleural effusion or pneumothorax is seen. No acute osseous abnormality is seen. CT abdomen/pelvis: The liver demonstrates no focal lesions. The spleen appears normal. The pancreas is normal. The adrenal glands are normal. The kidneys are unremarkable. The bowel loops are nondistended without obstruction. The appendix appears normal. No free fluid or free air is seen. No acute osseous abnormality is seen. IMPRESSION: 1. Stable aneurysm of the ascending aorta. No dissection seen. The remainder of the aorta and visible branch vessels is unremarkable. 2. No other acute abnormality seen in the chest, abdomen or pelvis. Dictated by: Dictated on workstation # [id number]
[2019-08-16] MEDS ORDERED: CYCL10TA9 PO (19:36)
[2019-08-16 19:43] VITALS: BP 112/68
== END 2019-08-16 19:43 | disposition home or self-care (01) ==
LOC: EDUNIT# 17:36 → ER FS 17:37
DX: M54.2 Cervicalgia (principal); M25.512 Pain in left shoulder; I48.91 Unspecified atrial fibrillation; E78.00 Pure hypercholesterolemia, unspecified; G43.909 Migraine, unspecified, not intractable, without status migrainosus; F17.210 Nicotine dependence, cigarettes, uncomplicated; Z82.49 Family history of ischemic heart disease and other diseases of the circulatory system
CPT/HCPCS: 36415; 70498; 71275; 74174; 80053; 83880; 84484; 85025; 85610; 85730; 93005

== ENCOUNTER 2019-11-17 16:26 | Observation (INO) | payer BC, OTHER ==
[~2019-11-17] VITALS: Ht 180 cm; Wt 136.4 kg
[~2019-11-17 16:26] MED LIST changes: +CYCL10TA9 PO; -METO-395 PO; +MTP100TCR PO; -TRAM50TA2 PO; +TRM50T PO
[2019-11-17] MEDS ORDERED: NS IV 1000 ML 1,000 ML IV SCH (16:40)
[2019-11-17] MEDS ORDERED: NITROGLYCERIN 0.4 MG SL TABS BTL 25'S SL PRN ×2 (16:45→23:15)
[2019-11-17] MEDS ORDERED: IOHEXOL 350 MG/ML 150 ML (OMNIPAQUE 350) VIAL IV ONE (16:45)
[2019-11-17] MEDS ORDERED: ASPIRIN 81 MG CHEW (CHILDREN'S ASA) PO ONE (16:45)
[2019-11-17] MEDS ORDERED: NS 100 ML (IVPB) BAG IV ONE (16:45)
[2019-11-17] MEDS ORDERED: HOLD METFORMIN - RECEIVED CONTRAST 20 ML VIAL IV SCH (16:45)
--- NOTE | 2019-11-17 16:46 | ED Chest Pain ---
General Chief Complaint: Cardiac/General Problems Stated Complaint: CHEST PAIN,SOB, Nursing Triage Note: CHEST PAIN SINCE LAST NIGHT, SWEATY, HX OF HEART DISEASE Nursing Sepsis Screen: No Definite Risk Source: patient Exam Limitations: no limitations History of Present Illness Date Seen by Provider: Nov 17, 2019 Time Seen by Provider: 16:28 Initial Comments The patient presents to the ER by private conveyance from home with chief complaint that about 1:00 this morning he began to experience chest pain. He says he was almost asleep when it woke him up fully. He did not take anything for it and he said his hands were shaking so bad he dropped his phone and will trying to down 911. He did not complete by 911 and therefore was not evaluated by EMS brought the ER. He says the pain eventually went away after about an hour or so so he went back to sleep and then he woke back up this morning and was still having some pain sharp, stabbing, fleeting lasting a few seconds at a time in the center of his chest radiating towards his back as well and left shoulder blade. He is not having any nausea but he has been sweating profusely. He is not diabetic nor does have a history of coronary disease. He is not having any fevers cough shortness of breath orthopnea. He does have a history of a congenital bicuspid valve that he has been evaluated by cardiothoracic surgery at [facility] and told he had a bad valve replaced as well as a thoracic aortic aneurysm. He was evaluated at [facility] by cardiothoracic surgery and told that his bowel needs replaced which is scheduled for the of this month, 10 days from now. The [facility] cardiothoracic surgeon told him that his thoracic aorta was normal and did not need worked on. Patient has never had a heart attack. He has no history of heart failure. He's never had pain like this before. He does have a history of GERD but has not taken any antacids today. Patient is known to Dr. Will, cardiology in [place], [place]. He is known to Dr. Harding for primary care. Allergies and Home Medications Allergies Coded Allergies: No Known Drug Allergies (Unverified , 01/01/19) Home Medications Clindamycin HCl 300 Mg Capsule, 300 MG PO TID Prescribed by: HINA JORGE on 07/12/191956 Cyclobenzaprine HCl 10 Mg Tablet, 10 MG PO Q8H PRN for SPASMS Prescribed by: DANISH PARKER on 08/16/19 193 Metoprolol Succinate 100 Mg Tab.er.24h, 100 MG PO DAILY Prescribed by: ALEXUS MAHMOOD on 10/07/18 1431 Tramadol HCl 50 Mg Tablet, 50 MG PO Q6H PRN for PAIN Prescribed by: HINA JORGE on 07/12/191956 Patient Home Medication List Home Medication List Reviewed: Yes Review of Systems Review of Systems Constitutional: No chills, No diaphoresis EENTM: No Blurred Vision, No Double Vision Respiratory: Denies Cough, Denies Shortness of Air Cardiovascular: Chest Pain; Denies Edema, Denies Irregular Heart Rate; Lightheadedness; Denies Palpitations, Denies Syncope Gastrointestinal: Denies Abdomen Distended; Abdominal Pain (left flank sharp) Genitourinary: Denies Burning, Denies Discharge Musculoskeletal: No back pain, No joint pain Skin: No pruritus, No rash Psychiatric/Neurological: Denies Anxiety, Denies Depressed Endocrine: Excessive Sweating; Denies Flushing All Other Systems Reviewed Negative Unless Noted: Yes Past Rflljip-Gljxnp-Pbcqov Hx Patient Social History Alcohol Use: Denies Use Recreational Drug Use: Yes Drug of Choice: marijuana Smoking Status: Current Everyday Smoker Type Used: Cigarettes 2nd Hand Smoke Exposure: No Recent Foreign Travel: No Contact w/Someone Who Travel: No Recent Infectious Disease Expo: No Recent Hopitalizations: Yes Physical Abuse: No Sexual Abuse: No Mistreated: No Fear: No Immunizations Up To Date Date of Influenza Vaccine: Jun 03, 2019 Seasonal Allergies Seasonal Allergies: No Past Medical History Surgeries: Yes (ablation-svt/a-fib, LOOP RECORDER 01/02/19) Cardiac Respiratory: No Cardiac: Yes (ascending aortic aneurysm, bicuspid valve dysfunction, V-tach) Aneurysm, Atrial Fibrillation, Heart Murmur, High Cholesterol, Irregular Heartbeat, Palpitations Neurological: Yes Headaches /Migraines Genitourinary: No Gastrointestinal: No Musculoskeletal: Yes Chronic Back Pain Endocrine: No HEENT: No Cancer: No Psychosocial: No Integumentary: No Blood Disorders: No Adverse Reaction/Blood Tranf: No Family Medical History Hypertension Physical Exam Vital Signs Vital Signs - First Documented 11/17/19 16:34 Temp 37.1 Pulse 73 Resp 20 B/P (MAP) 131/85 (100) Pulse Ox 96 O2 Delivery Room Air Capillary Refill : Less Than 3 Seconds Height, Weight, BMI Height: 5'11.00" Weight: 308lbs. 0.0oz. 139.500011xs; 43.00 BMI Method:Stated General Appearance: WD/WN, Anxious, Mild Distress HEENT: PERRL/EOMI, Pharynx Normal, Moist Mucous Membranes Neck: Full Range of Motion, Normal Inspection Respiratory: Chest Non Tender, Lungs Clear, Normal Breath Sounds, No Accessory Muscle Use, No Respiratory Distress Cardiovascular: Regular Rate, Rhythm, No Edema, Normal Peripheral Pulses Gastrointestinal: Normal Bowel Sounds, Non Tender, Soft Extremity: Normal Capillary Refill, Normal Inspection, Non Tender, No Calf Tenderness, No Pedal Edema Neurologic/Psychiatric: Alert, Oriented x3, No Motor/Sensory Deficits Skin: Normal Color, Warm/Dry Progress/Results/Core Measures Results/Orders Lab Results Laboratory Tests Test 11/17/19 16:37 11/17/19 18:05 Range/Units White Blood Count 9.0 4.3-11.0 10^3/uL Red Blood Count 5.90 H 4.35-5.85 10^6/uL Hemoglobin 17.4 13.3-17.7 G/DL Hematocrit 47 40-54 % Mean Corpuscular Volume 80 80-99 FL Mean Corpuscular Hemoglobin 29 25-34 PG Mean Corpuscular Hemoglobin Concent 37 H 32-36 G/DL Red Cell Distribution Width 13.2 10.0-14.5 % Platelet Count 233 130-400 10^3/uL Mean Platelet Volume 9.9 7.4-10.4 FL Neutrophils (%) (Auto) 62 42-75 % Lymphocytes (%) (Auto) 29 12-44 % Monocytes (%) (Auto) 7 0-12 % Eosinophils (%) (Auto) 2 0-10 % Basophils (%) (Auto) 0 0-10 % Neutrophils # (Auto) 5.6 1.8-7.8 X 10^3 Lymphocytes # (Auto) 2.6 1.0-4.0 X 10^3 Monocytes # (Auto) 0.7 0.0-1.0 X 10^3 Eosinophils # (Auto) 0.1 0.0-0.3 10^3/uL Basophils # (Auto) 0.0 0.0-0.1 10^3/uL Prothrombin Time 14.4 12.2-14.7 SEC INR Comment 1.1 0.8-1.4 Activated Partial Thromboplast Time 28 24-35 SEC D-Dimer 0.30 0.00-0.49 UG/ML Sodium Level 137 135-145 MMOL/L Potassium Level 3.9 3.6-5.0 MMOL/L Chloride Level 105 98-107 MMOL/L Carbon Dioxide Level 22 21-32 MMOL/L Anion Gap 10 5-14 MMOL/L Blood Urea Nitrogen 10 7-18 MG/DL Creatinine 0.89 0.60-1.30 MG/DL Estimat Glomerular Filtration Rate > 60 BUN/Creatinine Ratio 11 Glucose Level 103 70-105 MG/DL Calcium Level 9.3 8.5-10.1 MG/DL Corrected Calcium 8.5-10.1 MG/DL Magnesium Level 1.8 1.6-2.4 MG/DL Total Bilirubin 0.5 0.1-1.0 MG/DL Aspartate Amino Transf (AST/SGOT) 23 5-34 U/L Alanine Aminotransferase (ALT/SGPT) 22 0-55 U/L Alkaline Phosphatase 60 40-136 U/L Myoglobin 55.9 10.0-92.0 NG/ML Troponin I 0.047 H <0.028 NG/ML B-Type Natriuretic Peptide 66.0 <100.0 PG/ML Total Protein 7.4 6.4-8.2 GM/DL Albumin 4.6 H 3.2-4.5 GM/DL Lipase 19 8-78 U/L My Orders Orders - KERVIN MUNOZ Continuous Ekg Monitoring (11/17/19 16:27) Ekg Tracing (11/17/19 16:27) Cbc With Automated Diff (11/17/19 16:37) Magnesium (11/17/19 16:37) Chest 1 View, Ap/Pa Only (11/17/19 16:37) Comprehensive Metabolic Panel (11/17/19 16:37) Myoglobin Serum (11/17/19 16:37) Protime With Inr (11/17/19 16:37) Partial Thromboplastin Time (11/17/19 16:37) O2 (11/17/19 16:37) Lipid Panel (11/18/19 06:00) Ed Iv/Invasive Line Start (11/17/19 16:37) Lipase (11/17/19 16:37) BNP (11/17/19 16:37) Troponin I (11/17/19 16:37) Nitroglycerin 0.4 Mg Btl 25's (Nitrostat (11/17/19 16:45) Aspirin Chewable Tablet (Baby Aspirin Ch (11/17/19 16:45) Ct Angio Chst/Abd/Pelv W (11/17/19 16:37) Ua Culture If Indicated (11/17/19 16:37) Drug Screen Stat (Urine) (11/17/19 16:37) Ed Iv/Invasive Line Start (11/17/19 16:40) Ns Iv 1000 Ml (Sodium Chloride 0.9%) (11/17/19 16:40) Iohexol Injection (Omnipaque 350 Mg/Ml 1 (11/17/19 16:45) Received Contrast (Hold Metformin- Contr (11/17/19 16:45) Ns (Ivpb) (Sodium Chloride 0.9% Ivpb Bag (11/17/19 16:45) Pantoprazole Injection (Protonix Injecti (11/17/19 17:00) Fibrin Degradation Products (11/17/19 16:37) Morphine Injection (Morphine Injection (11/17/19 17:01) Medications Given in ED Current Medications Medications Dose Ordered Sig/Helder Route Start Time Stop Time Status Last Admin Dose Admin Aspirin 324 mg ONCE ONCE PO 11/17/19 16:45 11/17/19 16:46 DC 11/17/19 16:47 324 MG Iohexol 150 ml ONCE ONCE IV 11/17/19 16:45 11/17/19 16:50 DC 11/17/19 17:42 125 ML Nitroglycerin 0.4 mg UD PRN SL 11/17/19 16:45 11/17/19 16:47 0.4 MG Pantoprazole 40 mg ONCE ONCE IV 11/17/19 17:00 11/17/19 17:01 DC 11/17/19 16:56 40 MG Sodium Chloride 100 ml ONCE ONCE IV 11/17/19 16:45 11/17/19 16:50 DC 11/17/19 17:42 80 ML Vital Signs/I&O 11/17/19 11/17/19 16:34 16:34 Temp 37.1 Pulse 73 Resp 20 B/P (MAP) 131/85 (100) Pulse Ox 96 O2 Delivery Room Air Room Air Blood Pressure Mean: 100 Progress Progress Note #1: Time: 17:27 Progress Note Chest pain, sweating profusely, minimal relief with nitroglycerin. We gave him 325 mg of aspirin to chew and swallow. 4 mg of morphine helped his pain. With his plus or minus history of abdominal/thoracic aortic aneurysm/dissection plan to get a CT angiogram of the chest abdomen pelvis. This will also help us rule out blood clots. He does have a detectable amount of troponin on his initial labs. His EKG is a sinus rhythm without clinically relevant ST elevation. Chest x-ray. While he does have some family history of coronary disease he himself does not have it. His heart score remains low based on his age. We will discuss the case with cardiology if the CT is negative and may be able to rule him out if he is pain-free. We also will give him some pantoprazole and if his pain persists and CT is negative then we can give him a GI cocktail. Echocardiogram October [address] Mesa demonstrates EF of 55-65% and mild regurgitation and aortic valve. Aortic root was not dilated on the study. Progress Note #2: Time: 18:15 Progress Note Patient is pain-free now. He says he only has a little bit of discomfort in his chest whenever he takes a deep breath. He is not having coughing since he's been here. Thus far workup for any dangerous chest pathology has been unremarkable. If his 3 hour delta troponin (1999) does not demonstrate significant rise, greater than 20% them the reasonable thing to do would be to let him follow-up outpatient with his maori liaison adviser. Dr. Jacob. Initial ECG Impression Date: Nov 17, 2019 Initial ECG Impression Time: 16:30 Initial ECG Rate: 72 Initial ECG Rhythm: Normal Sinus Initial ECG Intervals: Normal Initial ECG Impression: Normal Comment Sinus rhythm without clinically relevant elevation or depression. Diagnostic Imaging Diagonstic Imaging: Xray Plain Films/CT/US/NM/MRI: chest (1v) Comments [facility] [place], [place] NAME: TRUPTI JUAREZ [facility] REC#: [id number] PT STATUS: REG ER : 1985 PHYSICIAN: KERVIN MUNOZ MD ADMIT DATE: 11/17/19/ER Draft Date of Exam:11/17/19 CHEST 1 VIEW, AP/PA ONLY INDICATION: Chest pain COMPARISON is made study of 07/12/2019 FINDINGS: Heart size and pulmonary vascularity are within normal limits, and the lungs are clear, bilaterally. Loop recorder device is seen in the left chest wall. IMPRESSION: Unremarkable chest. Dictated on workstation # [id number] Dict: 11/17/19 1746 Trans: 11/17/19 1751 [facility] [id number] Interpreted by: SANDRITA STANLEY MD Electronically signed by: Reviewed: Reviewed by Me Diagonstic Imaging: CT (angiogram) Plain Films/CT/US/NM/MRI: chest, abdomen, pelvis Comments NAME: TRUPTI JUAREZ [facility] REC#: [id number] PT STATUS: REG ER : 1985 PHYSICIAN: KERVIN MUNOZ MD ADMIT DATE: 11/17/19/ER Draft Date of Exam:11/17/19 CT ANGIO CHST/ABD/PELV W PROCEDURE: CT angiography of the chest with contrast and CT abdomen and pelvis with contrast. TECHNIQUE: Multiple contiguous axial images were obtained through the chest, abdomen and pelvis after administration of intravenous contrast. 3D MIP reconstructed CT angiography acquisitions of the aorta were then performed. Auto Exposure Controls were utilized during the CT exam to meet ALARA standards for radiation dose reduction. INDICATION: Chest pain with ascending thoracic aortic aneurysm. FINDINGS: CTA chest: Since the study of 08/16/2019, there may be slight interval increase in size of ascending thoracic aortic aneurysm which reaches maximum diameter of 5.3 cm. Previous measurement was 5.1 cm. There is no evidence of dissection. Three-vessel branching pattern is again seen arising from the aortic arch. Aortic arch and descending thoracic aorta are unremarkable. There is no evidence of pulmonary arterial filling defect. Coronary arteries are patent. There is no infiltrate or mass in the lungs. There is no significant pleural or pericardial fluid. There may be small hiatal hernia. No pathologic adenopathy is identified. Abdominal aorta is of normal caliber and the iliac and femoral arteries also have a normal appearance apart from minimal atherosclerotic calcification at the level of common femoral arteries. There is no evidence of hemoperitoneum. Liver, gallbladder, pancreas, adrenal glands, spleen, and kidneys are unremarkable. There is no evidence of bladder abnormality. No focal inflammation or organized fluid collection is identified. The appendix has a normal appearance. IMPRESSION: There may be slight interval increase in the diameter of ascending thoracic aortic aneurysm, now reaching 5.3 cm in diameter. No dissection or new abnormality is seen within the chest, abdomen, or pelvis. Dictated on workstation # [id number] Dict: 11/17/19 1747 Trans: 11/17/19 1757 [id number] Interpreted by: SANDRITA STANLEY MD Electronically signed by: Reviewed: Reviewed by Me Consults : Consulting Physician: MAJOR SCOTT MD Consults Notes Discussed the case lab imaging with Dr. Scott. He agrees with the workup and then the troponin. If it's okay then he would be okay letting the patient go home and follow up outpatient with his maori liaison adviser. Transfer of Care Time: 18:15 Care transferred to: Dr. Hodge Departure Impression Primary Impression: Chest pain Qualified Codes: R07.1 - Chest pain on breathing Additional Impression: Aortic stenosis due to bicuspid aortic valve Disposition: 01 HOME, SELF-CARE Condition: Stable Departure-Patient Inst. Referrals: [facility] [place] Primary Care Physician YESSENIA HARDING APRN (Family) Primary Care Physician Patient Instructions: Chest Pain That Is Not Caused by the Heart (DC) Add. Discharge Instructions: Plan to follow up with your maori liaison adviser by calling his clinic for appointment. Tylenol 1000 mg every 8 hours as needed for pain. Rolaids, Tums, Maalox or Mylanta as necessary for indigestion. If you're pain becomes severe, unrelenting or does not improve with these medications then please return to the ER. All discharge instructions reviewed with patient and/or family. Voiced understanding. KERVIN MUNOZ Nov 17, 2019 16:46
[2019-11-17 16:48] LABS: BASOPHILS % (AUTO) 0 % (0-10); EOSINOPHILS # (AUTO) 0.1 10^3/uL (0.0-0.3); EOSINOPHILS % (AUTO) 2 % (0-10); HEMATOCRIT 47 % (40-54); HEMOGLOBIN 17.4 G/DL (13.3-17.7); LYMPHOCYTES # (AUTO) 2.6 X 10^3 (1.0-4.0); LYMPHOCYTES % (AUTO) 29 % (12-44); MEAN CORPUSCULAR HEMOGLOBIN 29 PG (25-34); MEAN CORPUSCULAR HGB CONC 37 G/DL (32-36); MEAN CORPUSCULAR VOLUME 80 FL (80-99); MEAN PLATELET VOLUME 9.9 FL (7.4-10.4); MONOCYTES # (AUTO) 0.7 X 10^3 (0.0-1.0); MONOCYTES % (AUTO) 7 % (0-12); NEUTROPHILS # (AUTO) 5.6 X 10^3 (1.8-7.8); NEUTROPHILS % (AUTO) 62 % (42-75); PLATELET COUNT 233 10^3/uL (130-400); RED CELL DISTRIBUTION WIDTH 13.2 % (10.0-14.5)
[2019-11-17] MEDS ORDERED: PANTOPRAZOLE 40 MG (PROTONIX) VIAL IV ONE (17:00)
[2019-11-17] MEDS ORDERED: morphine INJ 10 MG/ML 1ML (SYR OR VIAL) IVP STA (17:01)
[2019-11-17 17:05] LABS: FIBRIN DEGRADATION PRODUCTS 0.3 UG/ML (0.00-0.49); INR 1.1 (0.8-1.4); PROTHROMBIN TIME PATIENT 14.4 SEC (12.2-14.7)
[2019-11-17 17:06] LABS: ALANINE AMINOTRANSFERASE 22 U/L (0-55); ALBUMIN 4.6 GM/DL (3.2-4.5); ALKALINE PHOSPHATASE 60 U/L (40-136); BILIRUBIN,TOTAL 0.5 MG/DL (0.1-1.0); BUN/CREATININE RATIO 11; CALCIUM 9.3 MG/DL (8.5-10.1); CARBON DIOXIDE 22 MMOL/L (21-32); CHLORIDE 105 MMOL/L (98-107); CREATININE SERUM 0.89 MG/DL (0.60-1.30); GFR ESTIMATED > 60; GLUCOSE 103 MG/DL (70-105); LIPASE 19 U/L (8-78); MAGNESIUM 1.8 MG/DL (1.6-2.4); POTASSIUM 3.9 MMOL/L (3.6-5.0); SODIUM 137 MMOL/L (135-145); TOTAL PROTEIN 7.4 GM/DL (6.4-8.2)
--- NOTE | 2019-11-17 17:51 | Diagnostic Imaging Report ---
INDICATION: Chest pain COMPARISON is made study of 07/12/2019 FINDINGS: Heart size and pulmonary vascularity are within normal limits, and the lungs are clear, bilaterally. Loop recorder device is seen in the left chest wall. IMPRESSION: Unremarkable chest. Dictated by: Dictated on workstation # [id number]
--- NOTE | 2019-11-17 17:57 | Diagnostic Imaging Report ---
PROCEDURE: CT angiography of the chest with contrast and CT abdomen and pelvis with contrast. TECHNIQUE: Multiple contiguous axial images were obtained through the chest, abdomen and pelvis after administration of intravenous contrast. 3D MIP reconstructed CT angiography acquisitions of the aorta were then performed. Auto Exposure Controls were utilized during the CT exam to meet ALARA standards for radiation dose reduction. INDICATION: Chest pain with ascending thoracic aortic aneurysm. FINDINGS: CTA chest: Since the study of 08/16/2019, there may be slight interval increase in size of ascending thoracic aortic aneurysm which reaches maximum diameter of 5.3 cm. Previous measurement was 5.1 cm. There is no evidence of dissection. Three-vessel branching pattern is again seen arising from the aortic arch. Aortic arch and descending thoracic aorta are unremarkable. There is no evidence of pulmonary arterial filling defect. Coronary arteries are patent. There is no infiltrate or mass in the lungs. There is no significant pleural or pericardial fluid. There may be small hiatal hernia. No pathologic adenopathy is identified. Abdominal aorta is of normal caliber and the iliac and femoral arteries also have a normal appearance apart from minimal atherosclerotic calcification at the level of common femoral arteries. There is no evidence of hemoperitoneum. Liver, gallbladder, pancreas, adrenal glands, spleen, and kidneys are unremarkable. There is no evidence of bladder abnormality. No focal inflammation or organized fluid collection is identified. The appendix has a normal appearance. IMPRESSION: There may be slight interval increase in the diameter of ascending thoracic aortic aneurysm, now reaching 5.3 cm in diameter. No dissection or new abnormality is seen within the chest, abdomen, or pelvis. Dictated by: Dictated on workstation # [id number]
[2019-11-17 18:14] LABS: BILIRUBIN,URINE NEGATIVE (NEGATIVE); CLARITY,URINE CLEAR; COLOR,URINE YELLOW; GLUCOSE, URINE (UA) NEGATIVE (NEGATIVE); KETONES,URINE NEGATIVE (NEGATIVE); LEUKOCYTE ESTERASE ,URINE NEGATIVE (NEGATIVE); NITRITE,URINE NEGATIVE (NEGATIVE); PH,URINE 8.5 (5-9); PROTEIN,URINE NEGATIVE (NEGATIVE)
[2019-11-17 18:23] LABS: BACTERIA,URINE NEGATIVE /HPF; SQUAMOUS EPITHELIAL CELL,UR RARE /HPF
[2019-11-17 18:30] LABS: AMPHETAMINE SCREEN, URINE NEGATIVE (NEGATIVE); BARBITURATE SCREEN URINE NEGATIVE (NEGATIVE); BENZODIAZEPINES SCREEN URINE NEGATIVE (NEGATIVE); CANNABINOID SCREEN, URINE POSITIVE (NEGATIVE); COCAINE SCREEN URINE NEGATIVE (NEGATIVE); METHADONE STAT NEGATIVE (NEGATIVE); METHAMPHETAMINE SCREEN URINE S NEGATIVE (NEGATIVE); OPIATE SCREEN URINE POSITIVE (NEGATIVE); OXYCODONE STAT NEGATIVE (NEGATIVE); PROPOXYPHENE STAT NEGATIVE (NEGATIVE); TRICYCLIC ANTIDEPRESSANTS SCRE NEGATIVE (NEGATIVE)
[2019-11-17 22:50] VITALS: BP 108/77
[2019-11-17] MEDS ORDERED: 1/2 NS IV SOLUTION 1,000 ML IV ONE (22:54)
[2019-11-17 22:59] VITALS: BP 108/77
[2019-11-17] MEDS ORDERED: 1/2 NS IV SOLUTION 1,000 ML IV SCH (23:00)
[2019-11-17] MEDS ORDERED: ONDANSETRON 4 MG/2 ML (SDV) Z0FRAN IV PRN (23:15)
[2019-11-17] MEDS ORDERED: morphine INJ 4 MG/ML 1 ML (VIAL/SYRINGE) IV PRN (23:15)
[2019-11-17] MEDS ORDERED: ZOLPIDEM 5 MG (AMBIEN) TAB PO PRN (23:15)
[2019-11-17] MEDS ORDERED: CATHETER FLUSH 10 ML SYR IV PRN (23:15)
[2019-11-17 23:30] VITALS: BP 133/76
[2019-11-17 23:45] VITALS: BP 137/74
[2019-11-18] VITALS: BP 119/71
--- OUTSIDE RECORDS SUMMARY | 2019-11-18 00:24 | XMS REPORT | Encounter Summary ---
Author Author [facility] Organization [facility] Address Unknown Phone Unavailable Care Team Providers Care Seam Checker Name Role Phone Reji Jacob PCP Encounter Details Care Team Description Date Type Department Encounter for consultation 10/24/2019 Imaging [facility] Appointment Location Social History Date Tobacco Use Types Packs/Day Years Used Current Every Day Smoker Cigarettes 1.5 15 Smokeless Tobacco: Never Used Drinks/Week oz/Week Comments Alcohol Use Never Alcohol Habits Answer Date Recorded How often do you have a drink containing alcohol? Never 08/29/2019 How many drinks containing alcohol do you have on No t asked a typical day when you are drinking? How often do you have six or more drinks on one Not asked occasion? Sex Assigned at Date Recorded Not on file Industry Job Start Date Occupation Not on file Not on file Not on file Travel End Travel History Travel Start No recent travel history available. documented as of this encounter Plan of Treatment Not on filedocumented as of this encounter Procedures Comments Procedure Name Priority Date/Time Associated Diag nosis CT OUTSIDE IMAGES FOR Routine 10/24/2019 Encounte r for PACS 8:03 AM METAL SLITTER consultation documented in this encounter Results * CT Outside images for PACS (10/24/2019 8:03 AM METAL SLITTER) Specimen Performing Organization Address City/State/Zipcode Ph one Number [place] documented in this encounter Visit Diagnoses Diagnosis Encounter for consultation documented in this encounter
--- OUTSIDE RECORDS SUMMARY | 2019-11-18 00:24 | XMS REPORT | Clinical Summary ---
Author Author [facility] Organization [facility] Address Unknown Phone Unavailable Care Team Providers Care Utilities And Maintenance Supervisor Name Role Phone Reji Jacob PCP Allergies Comments Active Allergy Reactions Severity Noted Date Hydrocodone Nausea And 08/26/2019 Vomiting Medications End Date Status Medication Sig Dispensed Refills Start Date Active LORazepam (ATIVAN) 0.5 MG Take 0.5 mg 0 tablet by mouth every 6 (six) hours as needed for anxiety. Active metoprolol succinate Take 200 mg 0 (TOPROL-XL) 200 MG 24 hr by mouth tablet daily. Active Problems Problem Noted Date Cigarette nicotine dependence without complication 1 10/31/2018 Hypersomnolence 08/29/2019 Ascending aorta dilatation 06/03/2019 Overview: 5.0 cm ascending aorta; 3.5 cm at sinus es of Valsalva VT (ventricular tachycardia) Overview: with aberrancy Morbid obesity Aortic stenosis due to bicuspid aortic valve Anxiety Encounters Care Team Description Date Type Specialty Encounter for consultation 10/24/2019 Imaging Radiology Appointment Encounter for consultation 10/24/2019 Imaging Radiology Appointment Encounter for consultation 10/24/2019 Imaging Radiology Appointment Encounter for consultation 10/24/2019 Imaging Radiology Appointment Encounter for consultation 10/24/2019 Imaging Radiology Appointment Encounter for consultation 10/24/2019 Imaging Radiology Appointment Encounter for consultation 10/24/2019 Imaging Radiology Appointment Encounter for consultation 10/24/2019 Imaging Radiology Appointment Encounter for consultation 10/24/2019 Imaging Radiology Appointment Encounter for consultation 10/24/2019 Imaging Radiology Appointment Encounter for consultation 10/24/2019 Imaging Radiology Appointment Encounter for consultation 10/22/2019 Imaging Radiology Appointment Encounter for consultation 10/22/2019 Imaging Radiology Appointment Encounter for consultation 10/22/2019 Imaging Radiology Appointment Encounter for consultation 10/22/2019 Imaging Radiology Appointment Encounter for consultation 10/22/2019 Imaging Radiology Appointment Joe Harris, RN Correspondence 10/22/2019 Telephone Cardiology Korin Rehman RN 2019 Telephone Cardiology Tone Medina MD 09/02/2019 Documentation Cardiology Savita Reyna, RN Correspondence 08/29/2019 Telephone Cardiology Tone Medina MD 08/27/2019 Orders Only Cardiology Sindy John RN 08/26/2019 Abstract Cardiology Tone Medina MD Anxiety (Primary Dx); Ascending aorta dilatation (HCC); Aortic stenosis due to bicuspid aortic valve; Morbid obesity (HCC); VT (ventricular tachycardia) (HCC); Hypersomnolence; Cigarette nicotine dependence without complication 08/25/2019 Initial consult Cardiology Tone Medina MD 08/19/2019 Documentation Cardiology from Last 3 Months Family History Medical History Relation Name Comments Alcohol abuse Father Hyperlipidemia Father Hypertension Father Heart failure Mother Relation Name Status Comments Father Mother Social History Date Tobacco Use Types Packs/Day [...] Travel Start No recent travel history available. Last Filed Vital Signs Reading Time Taken Comments Vital Sign 124/9 08/29/2019 8:48 AM BUSINESS ETHICS PROFESSOR Blood Pressure 80 08/29/2019 8:48 AM BUSINESS ETHICS PROFESSOR Pulse - - Temperature - - Respiratory Rate 96% 08/29/2019 8:48 AM BUSINESS ETHICS PROFESSOR Oxygen Saturation - - Inhaled Oxygen Concentration 140.6 kg (310 lb) 08/29/2019 8:48 AM BUSINESS ETHICS PROFESSOR Weight 180.3 cm (5' 11") 08/29/2019 8:48 AM BUSINESS ETHICS PROFESSOR Height 43.24 08/29/2019 8:48 AM BUSINESS ETHICS PROFESSOR Body Mass Index Plan of Treatment Health Maintenance Due Date Last Done Comments Td # 1987 Pneumococcal Vaccine: 1993 Pediatrics (0 to 5 Years) and At-Risk Patients (6 to 64 Years) (1 of 1 - PPSV23) Influenza Vaccine (Season 07/04/2020 07/31/2001 Ended) Tobacco Cessation 08/29/2020 08/29/2019 Counseling # Procedures Comments Procedure Name Priority Date/Time Associated Diag nosis CT OUTSIDE IMAGES FOR Routine 10/24/2019 Encounte r for PACS 8:15 AM BUSINESS ETHICS PROFESSOR consultation US OUTSIDE IMAGES FOR Routine 10/24/2019 Encounte r for PACS 8:04 AM BUSINESS ETHICS PROFESSOR consultation CT OUTSIDE IMAGES FOR Routine 10/24/2019 Encounte r for PACS 8:03 AM BUSINESS ETHICS PROFESSOR consultation CT OUTSIDE IMAGES FOR Routine 10/24/2019 Encounte r for PACS 8:03 AM BUSINESS ETHICS PROFESSOR consultation CT OUTSIDE IMAGES FOR Routine 10/24/2019 Encounte r for PACS 8:02 AM BUSINESS ETHICS PROFESSOR consultation CT OUTSIDE IMAGES FOR Routine 10/24/2019 Encounte r for PACS 8:02 AM BUSINESS ETHICS PROFESSOR consultation US OUTSIDE IMAGES FOR Routine 10/24/2019 Encounte r for PACS 8:01 AM BUSINESS ETHICS PROFESSOR consultation IR OUTSIDE IMAGES FOR Routine 10/24/2019 Encounte r for PACS 8:01 AM BUSINESS ETHICS PROFESSOR consultation CT OUTSIDE IMAGES FOR Routine 10/24/2019 Encounte r for PACS 8:00 AM BUSINESS ETHICS PROFESSOR consultation CT OUTSIDE IMAGES FOR Routine 10/24/2019 Encounte r for PACS 8:00 AM BUSINESS ETHICS PROFESSOR consultation CT OUTSIDE IMAGES FOR Routine 10/24/2019 Encounte r for PACS 7:59 AM BUSINESS ETHICS PROFESSOR consultation US OUTSIDE IMAGES FOR Routine 10/22/2019 Encounte r for PACS 3:24 PM BUSINESS ETHICS PROFESSOR consultation IR OUTSIDE IMAGES FOR Routine 10/22/2019 Encounte r for PACS 3:23 PM BUSINESS ETHICS PROFESSOR consultation CT OUTSIDE IMAGES FOR Routine 10/22/2019 Encounte r for PACS 3:22 PM BUSINESS ETHICS PROFESSOR consultation US OUTSIDE IMAGES FOR Routine 10/22/2019 Encounte r for PACS 3:21 PM BUSINESS ETHICS PROFESSOR consultation IR OUTSIDE IMAGES FOR Routine 10/22/2019 Encounte r for PACS 3:21 PM BUSINESS ETHICS PROFESSOR consultation from Last 3 Months Results * CT Outside images for PACS (10/24/2019 8:15 AM BUSINESS ETHICS PROFESSOR) Only the most recent of 9 results within the time period is included. Specimen Performing Organization Address City/State/Zipcode Ph one Number [place] * [place] Outside images for PACS (10/24/2019 8:04 AM BUSINESS ETHICS PROFESSOR) Only the most recent of 4 results within the time period is included. Specimen Performing Organization Address City/State/[facility] Ph one Maral [place] * [place] Outside images for PACS (10/24/2019 8:01 AM BUSINESS ETHICS PROFESSOR) Only the most recent of 3 results within the time period is included. Specimen Performing Organization Address City/State/Zipcode Ph one Maral [place] from Last 3 Months Insurance Type Payer Benefit Subscriber ID Effective Phone Address Plan / Dates Group [facility] OUT OF xxxxxxxxxxxx 19 20- AREA Present [employer] L Advance Directives For more information, please contact: [phone] Patient Hat Maker Explanation Type Date Recorded Health Care Directive
--- OUTSIDE RECORDS SUMMARY | 2019-11-18 00:24 | XMS REPORT | Encounter Summary ---
Author Author [facility] Organization [facility] Address Unknown Phone Unavailable Care Team Providers Care Business Account Specialist Name Role Phone Reji Jacob PCP Encounter Details Care Team Description Date Type Department Encounter for consultation 10/24/2019 Imaging [facility] Virtual [facility] Appointment Location Social [...] 10/24/2019 Encounte r for PACS 8:03 AM STAGE BUILDER consultation documented in this encounter Results * CT Outside images for PACS (10/24/2019 8:03 AM STAGE BUILDER) Specimen Performing Organization Address City/State/Zipcode Ph one Number [place] documented in this encounter Visit Diagnoses Diagnosis Encounter for consultation documented in this encounter
--- OUTSIDE RECORDS SUMMARY | 2019-11-18 00:24 | XMS REPORT | Encounter Summary ---
Author Author [facility] Organization [facility] Address Unknown Phone Unavailable Care Team Providers Care Music Worker Name Role Phone Reji Jacob PCP Encounter Details Care Team Description Date Type Department Encounter for consultation 10/24/2019 Imaging [facility] Virtual [facility] Appointment Location Social [...] Procedure Name Priority Date/Time Associated Diag nosis US OUTSIDE IMAGES FOR Routine 10/24/2019 Encounte r for PACS 8:04 AM AWNING ERECTOR consultation documented in this encounter Results * [place] Outside images for PACS (10/24/2019 8:04 AM AWNING ERECTOR) Specimen Performing Organization Address City/State/Zipcode Ph one Number [place] documented in this encounter Visit Diagnoses Diagnosis Encounter for consultation documented in this encounter
--- OUTSIDE RECORDS SUMMARY | 2019-11-18 00:24 | XMS REPORT | Encounter Summary ---
Author Author [facility] Organization [facility] Address Unknown Phone Unavailable Care Team Providers Care Deli Worker Name Role Phone Reji Jacob PCP Encounter Details Care Team Description Date Type Department Encounter for consultation 10/24/2019 Imaging [facility] Virtual [facility] Appointment Location Social History [...] 10/24/2019 Encounte r for PACS 8:15 AM RESEARCH AND EVALUATION MANAGER consultation documented in this encounter Results * CT Outside images for PACS (10/24/2019 8:15 AM RESEARCH AND EVALUATION MANAGER) Specimen Performing Organization Address City/State/Zipcode Ph one Number [place] documented in this encounter Visit Diagnoses Diagnosis Encounter for consultation documented in this encounter
--- OUTSIDE RECORDS SUMMARY | 2019-11-18 00:25 | XMS REPORT | Encounter Summary ---
Author Author [facility] Organization [facility] Address Unknown Phone Unavailable Care Team Providers Care Stock Sorter Name Role Phone Reji Jacob PCP Encounter Details Care Team Description Date Type Department Encounter for consultation 10/24/[address] [facility] Virtual [facility] Appointment Location Social [...] 10/24/2019 Encounte r for PACS 8:00 AM MOTORCYCLE BUILDER consultation documented in this encounter Results * CT Outside images for PACS (10/24/2019 8:00 AM MOTORCYCLE BUILDER) Specimen Performing Organization Address City/State/Zipcode Ph one Number [place] documented in this encounter Visit Diagnoses Diagnosis Encounter for consultation documented in this encounter
--- OUTSIDE RECORDS SUMMARY | 2019-11-18 00:25 | XMS REPORT | Encounter Summary ---
Author Author [facility] Organization [facility] Address Unknown Phone Unavailable Care Team Providers Care Impregnating Tank Operator Name Role Phone Cecil Reji PCP Reason for Referral * Surgical (Routine) Referred By Contact Referred To Contact Status Reason Specialty Diagnoses / Procedures Tone Medina MD [address] [facility] [address] [place] [address] Reuben Li MD [address] [place] [address] Authorized Specialty Services Cardiothoracic Diagnoses Required Surgery Ascending aorta dilatation (HCC) Aortic stenosis due to bicuspid aortic valve * MRI/CAT/PET Scan (Routine) Referred By Contact Referred To Contact Status Reason Specialty Diagnoses / Procedures Tone Medina MD [address] [facility] [address] [place] [address] [facility] [place] [address] [place] [id number] Closed Cardiology Diagnoses Ascending aorta dilatation (HCC) Aortic stenosis due to bicuspid aortic valve P rocedures CV CT Heart gated study Reason for Visit * Reason Comments Correspondence Encounter Details Care Team Description Date Type Department Savita Reyna, RODNEY Correspondence 08/29/2019 Telephone [facility] [address] [facility] [address] [place] [address] Social History Date Tobacco Use Types Packs/Day [...] history available. documented as of this encounter Miscellaneous Notes * Telephone Encounter - Tone Mednia MD - 09/19/2019 12:03 AM HORSE RACING MANAGER This is definitely not in media E RACING MANAGER * Telephone Encounter - Rosales Moore RN - 09/18/2019 2:36 PM HORSE RACING MANAGER Spoke with Sindy with chart analysts. SVT ablation is available in care everywher e under documents from [facility]. Date is 10/04/18, type is clinical document only an d provider is Cecilio Verdugo. Routing. E RACING MANAGER * Addendum Note - Rosales Moore RN - 09/17/2019 4:00 PM HORSE RACING MANAGER Addended by: ROSALES MOORE on: 09/17/2019 04:00 PM Modules accepted: Orders, SmartSet E RACING MANAGER * Telephone Encounter - Rosales Moore RN - 09/17/2019 3:39 PM HORSE RACING MANAGER Received call from patient wanting to schedule with Dr. Li. Discussed thi s is with [facility] and provided him number of their office, that they are separate of fice. Placed on hold and discussed with Dr. Guillermo Larson's MA. She never re ceived referral, note this was not entered. Apologized for this, she asked it b e faxed to [phone] attention to her. She states she can offer him 10/23 or 10/27. Transferred call. Referral placed and faxed with confirmation fax receiv ed. E RACING MANAGER * Telephone Encounter - Pauly Beal LPN - 09/17/2019 2:11 PM HORSE RACING MANAGER Received call from patient stating he had SVT ablation done in 10/[address] Verdugo at [facility] in [place]. I stated I will be routing a message to art senior policy analyst to request records. He v/u. ARoss E RACING MANAGER * Telephone Encounter - Savita Reyna RN - 09/05/2019 3:29 PM HORSE RACING MANAGER 10/06/19 THIRD attempt to reach to ask if he was able to find out where this docto r was E RACING MANAGER * Telephone Encounter - Savita Reyna RN - 09/04/2019 11:42 AM HORSE RACING MANAGER 09/04/19 SECOND attempt to reach, he stated that he would have to call Dr Barber ( ?SP) the EP at [facility] in [place] to get name and location of where he had it done and will call us back. E RACING MANAGER * Telephone Encounter - Rosales Moore RN - 09/02/2019 11:26 AM HORSE RACING MANAGER Spoke with Sindy. She received correspondence from [facility] in [place] rubi t they do not have patient in their record. Note in care everywhere just see th at he had SVT ablation done in [place]. Will call patient to see where had ab lation at and then send back to Sindy to request. Made call to patient and left b [facility] message to return call. E RACING MANAGER * Addendum Note - Korin Farnsworth RN - 09/01/2019 11:15 AM HORSE RACING MANAGER Addended by: KORIN FARNSWORTH on: 09/01/2019 11:15 AM Modules accepted: Orders, SmartSet E RACING MANAGER * Telephone Encounter - Korin Farnsworth RN - 09/01/2019 9:10 AM HORSE RACING MANAGER Called Dr. Glen Li's office ph # [phone]. Dr. Li's nurse will be contacting pt to set up appointment for after 08-17-19. She will be back on . They will access pt's outside records through [employer]. No need to fax. CV CT heart gated ordered. LMTCB with pt for more info about VT ablation records. Routed to [facility] to obtain VT ablation records from [facility] in [place], [place]. E RACING MANAGER * Telephone Encounter - Savita Reyna RN - 08/29/2019 4:42 PM HORSE RACING MANAGER ----- Message from Tone Medina MD sent at 08/29/2019 9:22 AM HORSE RACING MANAGER ----- I just saw him in [place] - he needs to see Dr Glen Li for possible AVR/asc ending aortic repair. He needs to be seen on or after 10/18/19 because that is w hen he gets insurance. Please also get a CT to assess ascending aneurysm size o n the same day (CV CT gated heart with contrast) in the nuclear lab. Also we ne ed to get his VT ablation records from [facility] (please contact him to get release ) and get it to me for review. I will have echo CDs that need to be loaded for me and Dr Li to review as well - will give to you on Sunday. Thx. E RACING MANAGER documented in this encounter Plan of Treatment Order Schedule Name Type Priority Associated Diag noses 1 Occurrences starting 09/01/2019 until 09/01/[address] Heart gated study Cardiac Routine Ascend ing aorta Services dilatation (HCC) Aortic stenosis due to bicuspid aortic valve Order Schedule Name Type Priority Associated Diag noses 1 Occurrences starting 09/17/2019 until 03/17/2020 Ambulatory Referral To Outpatient Routine Ascendi ng aorta Cardiovascular Surgery Referral dilatation (HCC ) Aortic stenosis due to bicuspid aortic valve documented as of this encounter Visit Diagnoses Diagnosis Ascending aorta dilatation (HCC) Thoracic aneurysm without mention of ru pture Aortic stenosis due to bicuspid aortic valve documented in this encounter
--- OUTSIDE RECORDS SUMMARY | 2019-11-18 00:25 | XMS REPORT | Encounter Summary ---
Author Author Organization Address Unknown Phone Unavailable Care Team Providers Care Bsa Officer Name Role Phone Reji Jacob PCP Encounter Details Care Team Description Date Type Department Encounter for consultation 10/24/2019 Imaging [facility] Virtual [facility] Appointment Location Social [...] Procedure Name Priority Date/Time Associated Diag nosis IR OUTSIDE IMAGES FOR Routine 10/24/2019 Encounte r for PACS 8:01 AM NITRIC ACID CONCENTRATOR OPERATOR consultation documented in this encounter Results * IR Outside images for PACS (10/24/2019 8:01 AM NITRIC ACID CONCENTRATOR OPERATOR) Specimen Performing Organization Address City/State/Zipcode Ph one Number [email or web address] documented in this encounter Visit Diagnoses Diagnosis Encounter for consultation documented in this encounter
--- OUTSIDE RECORDS SUMMARY | 2019-11-18 00:25 | XMS REPORT | Encounter Summary ---
Author Author [facility] Organization [facility] Address Unknown Phone Unavailable Care Team Providers Care Agile Developer Name Role Phone Reji Jacob PCP Reason for Visit * Reason Comments Aortic stenosis Encounter Details Care Team Description Date Type Department Tone Medina MD [address] [facility] [address] [place] [address] [phone] Anxiety (Primary Dx); Ascending aorta dilatation (HCC); Aortic stenosis due to bicuspid aortic valve; Morbid obesity (HCC); VT (ventricular tachycardia) (HCC); Hypersomnolence; Cigarette nicotine dependence without complication 08/25/2019 Initial consult [facility] [address] [place] [address] [address] [place] [address] Social History Date Tobacco Use Types Packs/Day [...] history available. documented as of this encounter Last Filed Vital Signs Reading Time Taken Comments Vital Sign 124/9 08/29/2019 8:48 AM PSYCHOLOGICAL ANTHROPOLOGIST Blood Pressure 80 08/29/2019 8:48 AM PSYCHOLOGICAL ANTHROPOLOGIST Pulse - - Temperature - - Respiratory Rate 96% 08/29/2019 8:48 AM PSYCHOLOGICAL ANTHROPOLOGIST Oxygen Saturation - - Inhaled Oxygen Concentration 140.6 kg (310 lb) 08/29/2019 8:48 AM PSYCHOLOGICAL ANTHROPOLOGIST Weight 180.3 cm (5' 11") 08/29/2019 8:48 AM PSYCHOLOGICAL ANTHROPOLOGIST Height 43.24 08/29/2019 8:48 AM PSYCHOLOGICAL ANTHROPOLOGIST Body Mass Index documented in this encounter Progress Notes * Tone Medina MD - 08/29/2019 8:00 AM PSYCHOLOGICAL ANTHROPOLOGIST [facility] Appointment Date: 08/29/2019 Reji Jacob MD [address] [place] [id number] RE: Carlos Parrish : 1985 Visit provider: Tone Medina MD Dear Reji Jacob MD, I had the pleasure of seeing Carlos Parrish in the office today. He is a(n) 33 y.o. m suzie and presents with the following chief complaint(s): Aortic stenosis HPI: As you know, Carlos Parrish is a delightful 33-year-old gentleman with severe aortic stenosis and ascending aortic aneurysm whom you were kind enough to refer for co nsideration of ascending aortic repair and aortic valve replacement. I had the pleasure of meeting him today in the [place] heart failure outreach clinic. His history dates back to 2017, when he presented with ventricular tachycardia w ith a heart rate of 260. He was cardioverted. This was in May 2018. In July 2018, he had another episode of ventricular tachycardia requiring defib rillation. Interestingly, a defibrillator was never offered and he was told by Dr. Barber that he had to go to [facility] in [facility] for ablation. This happened in October 2018. He had a loop monitor placed by Dr. Mesa in [place], [place] subsequently. He has had episodes almost every day of palpita tions where he feels like someone hit him in the chest. It is very painful and he has shortness of breath associated with it. However, he has been told by Dr. Scherer office that no arrhythmias had been seen. He had questioned Dr. Sourav tim whether the parameters were set appropriately to detect arrhythmias. In any case, it was found at the time of his ventricular tachycardia that he had a bic uspid aortic stenosis and a 4.4 cm ascending aortic aneurysm. He had a repeat e cho in July that showed an increase of his ascending aortic size to 5 cm and progression of his aortic stenosis to the severe range with a mean gradient of 44 mmHg. I did not see a dimensionless index measured or reported. He was sent to Dr. Ruff and went through pulmonary function testing, carotid ultrasound, a nd peripheral ultrasound. The night before his appointment, Dr. Carlee oates called and cancelled the appointment. He does not know why but wonders if it was because he had no insurance. In any case, your nurse practitioner Lanette saw him and talked to you and you asked him to be referred to me at this time fo r further evaluation and treatment. 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 He was able to l ift 200 lb objects without any difficulty and he could do that all day long. He could walk anywhere he wanted. Last year he could walk maybe a mile and now he can only walk 2 blocks before he is severely dyspneic. Concomitantly, he has g ained almost 100 lbs in the last year as well. He does feel tired during the da y and has never been tested for sleep apnea. He was a 1 to 2 pack a day smok er for 15 years and is down to pack a day at this point. He has full intenti on to quit smoking. He has not altered his dietary habits. He was on Lipitor a t one point in time but is no longer on it. His last LDL was in the 110 range. He is really tearful today. He has two young children, one is only a few months old. He is really concerned that something untoward will happen to him. Patient Active Problem List Diagnosis SNOMED CT(R) VT (ventricular tachycardia) ([facility]) VENTRICULAR TACHYCARDIA Morbid obesity (HCC) MORBID OBESITY Aortic stenosis due to bicuspid aortic valve CONGENITAL STENOSIS OF AORTIC V ALVE Ascending aorta dilatation (HCC) ASCENDING AORTA DILATATION Anxiety ANXIETY Hypersomnolence HYPERSOMNIA Cigarette nicotine dependence without complication NICOTINE DEPENDENCE Past Medical History: Diagnosis Date Anxiety Aortic stenosis due to bicuspid aortic valve Mean AoV gradient 45 07/22 Ascending aorta dilatation ([facility]) 06/2019 5.0 cm ascending aorta; 3.5 cm at sinuses of Valsalva Depression Morbid obesity ([facility]) VT (ventricular tachycardia) ([facility]) 05/2018 with aberrancy Past Surgical History: Procedure Laterality Date CARDIAC CATHETERIZATION 05/21/2018 normal cors. dilated ascending aorta (47 mm in diameter) CARDIAC CATHETERIZATION 07/10/2019 Performed in [place]. Normal coronaries. ELECTROPHYSIOLOGY STUDY WITH POSSIBLE RFA OF VT 10/2018 Performed at [place] IMPLANTABLE LOOP RECORDER PLACEMENT Performed in [place], [place] RIGHT HEART CATHETERIZATION 07/10/2019 Performed in [place]. RA 14 RV 37/14 PA 39/13/28 PCWP 19 TDCO/CI 6.2/2.4Fick CO /CI 6.2/2.4 PVR 1.5 TONSILLECTOMY Final Medications: Current Outpatient Medications Medication Sig Dispense Refill LORazepam (ATIVAN) 0.5 MG tablet Take 0.5 mg by mouth every 6 (six) hours as needed for anxiety. metoprolol succinate (TOPROL-XL) 200 MG 24 hr tablet Take 200 mg by mouth da annamarie. Allergies Allergen Reactions Hydrocodone Nausea And Vomiting Family History Problem Relation Age of Onset Hypertension Father Hyperlipidemia Father Alcohol abuse Father Heart failure Mother Social History: Social History Tobacco Use Smoking status: Current Every Day Smoker Packs/day: 1.50 Years: 15.00 Pack years: 22.50 Types: Cigarettes Smokeless tobacco: Never Used Substance Use Topics Alcohol use: Never Frequency: Never Drug use: Yes Frequency: 3.0 times per week Types: Marijuana Review of Systems Constitution: Positive for fever, malaise/fatigue and night sweats. HENT: Negative for nosebleeds. Eyes: Positive for vision loss in left eye and vision loss in right eye. Cardiovascular: Positive for chest pain, dyspnea on exertion, irregular heartbea t, orthopnea and palpitations. Negative for claudication, leg swelling, paroxysm al nocturnal dyspnea and syncope. Respiratory: Positive for cough, shortness of breath and wheezing. Negative for hemoptysis and snoring. Apnea. Waking up tired. Endocrine: Negative for cold intolerance and polydipsia. Hematologic/Lymphatic: Does not bruise/bleed easily. Skin: Negative for rash. Musculoskeletal: Positive for muscle weakness. Negative for joint pain and myalg ias. Gastrointestinal: Positive for nausea and vomiting. Negative for dysphagia, julissa tochezia and melena. Genitourinary: Negative for hematuria. Neurological: Positive for excessive daytime sleepiness, light-headedness, loss of balance and numbness. Negative for brief paralysis and dizziness. Psychiatric/Behavioral: Positive for depression. All other systems reviewed and are negative. Vital Signs 12/27/19 0848 BP: (!) 124/9 Pulse: 80 SpO2: 96% Weight: (!) 140.6 kg (310 lb) Height: 1.803 m (5' 11") BMI: Body mass index is 43.24 kg/m. Physical Exam Constitutional: General: He is not in acute distress. Appearance: Normal appearance. He is well-developed. HENT: Mouth/Throat: Pharynx: No oropharyngeal exudate. Eyes: General: No scleral icterus. Neck: Musculoskeletal: Neck supple. Vascular: No JVD. Cardiovascular: Rate and Rhythm: Normal rate and regular rhythm. Pulses: Carotid pulses are 1+ on the right side and 1+ on the left side. Posterior tibial pulses are 2+ on the right side and 2+ on the left side. Heart sounds: Normal heart sounds. No friction rub. No gallop. Comments: 2/6 late peaking systolic murmur Pulmonary: Effort: Pulmonary effort is normal. No respiratory distress. Breath sounds: Normal breath sounds. No wheezing or rales. Chest: Chest wall: No tenderness. Abdominal: General: Bowel sounds are normal. There is no distension. Palpations: Abdomen is soft. There is no mass. Tenderness: There is no tenderness. Comments: No hepatosplenomegaly No abdominal bruits Musculoskeletal: Right lower leg: No edema. Left lower leg: No edema. Skin: General: Skin is warm and dry. Findings: No rash. Neurological: Mental Status: He is alert and oriented to person, place, and time. Psychiatric: Mood and Affect: Mood normal. Behavior: Behavior normal. Cholesterol (mg/dL) Date Value 07/10/2019 181 HDL Cholesterol (mg/dL) Date Value 07/10/2019 33 (A) Triglycerides (mg/dL) Date Value 07/10/2019 189 (A) LDL Cholesterol Date/Time Value Ref Range Status 07/10/2019 110 mg/dL Final Encounter Diagnoses Name Primary? Anxiety Yes Ascending aorta dilatation (HCC) Aortic stenosis due to bicuspid aortic valve Morbid obesity (HCC) VT (ventricular tachycardia) (HCC) Hypersomnolence Cigarette nicotine dependence without complication Impression and Plan: In summary, Carlos Parrish is a gentleman with severe aortic stenosis and ascending a ortic dilatation and aneurysm. I told him that oftentimes echocardiograms can o verestimate the size of the ascending aorta and I would like to confirm that wit h a CT scan. We will do that in conjunction with his appointment with Dr. Glen Li so he can further evaluate his aortic size and discuss the timing of lechuga rgery with him. He is clearly symptomatic but it is difficult to ascertain how much of his symptoms are due to the 100 lb weight gain and how much is due to hi s aortic stenosis. I suspect much of the decline is due to the aortic stenosis, and because he is unable to do activities, that contributed to his significant weight gain. In addition, I suspect he has sleep apnea as well. I have asked parvin im to undergo a split night sleep study in [place] as soon as possible. I told parvin im that untreated sleep apnea will cause arrhythmias, weight gain, and fatigue. It can also lead to palpitations and symptoms of dyspnea as well. Finally, I am quite uncomfortable about him not having a defibrillator in place. I do realize he has a structurally normal myocardium with normal ejection fraction, but I need to get some records from [place] to see what type of ventricular tachycardia he had. If he just had RV outflow tract tachycardia, ablation should be curati ve and no further action will need to be taken, but I would like to review the r ecords and make more recommendations at that time. I may ask for an electrophys iology opinion from one of my colleagues at [facility] to see what their tho ughts are. I would certainly hate to lose him from arrhythmias in the future. Finally, as far as the type of valve to be used at the time of surgery, this aubrie l be a discussed between him and Dr. Li. I outlined for him the relative merits of tissue vs mechanical valves. He would like to see Dr. Li on or after 10/18/2019, when he can establish insurance so he does not run up his [facility] bills any more. I have not set up a routine follow-up but I will be hap py to see him in the future as needed. I appreciate your kind referral. Treatment goals, progress and next steps, as above, were discussed and mutually agreed upon with the patient/family. Thank you for allowing me to participate in Carlos Parrish's care. If I can be of an y further assistance, please do not hesitate to contact me. Sincerely, Tone Medina MD /mimi cc: Traci Li MD HOLOGICAL ANTHROPOLOGIST documented in this encounter Plan of Treatment Not on filedocumented as of this encounter Visit Diagnoses Diagnosis Anxiety Anxiety state, unspecified Ascending aorta dilatation (HCC) Thoracic aneurysm without mention of ru pture Aortic stenosis due to bicuspid aortic valve Morbid obesity (HCC) Morbid obesity VT (ventricular tachycardia) (HCC) Paroxysmal ventricular tachycardia Hypersomnolence Hypersomnia, unspecified Cigarette nicotine dependence without c omplication documented in this encounter
--- OUTSIDE RECORDS SUMMARY | 2019-11-18 00:25 | XMS REPORT | Encounter Summary ---
Author Author [facility] Organization [facility] Address Unknown Phone Unavailable Care Team Providers Care Director Of Religious Life Name Role Phone Reji Jacob PCP Encounter [...] 10/24/2019 Encounte r for PACS 8:00 AM REGULATORY INTERNSHIP consultation documented in this encounter Results * CT Outside images for PACS (10/24/2019 8:00 AM REGULATORY INTERNSHIP) Specimen Performing Organization Address City/State/Zipcode Ph one Number [place] documented in this encounter Visit Diagnoses Diagnosis Encounter for consultation documented in this encounter
--- OUTSIDE RECORDS SUMMARY | 2019-11-18 00:25 | XMS REPORT | Encounter Summary ---
Author Author [facility] Organization [facility] Address Unknown Phone Unavailable Care Team Providers Care Supervisor Tubing Name Role Phone Reji Jacob PCP Encounter Details Care Team Description Date Type Department Encounter for consultation 10/24/2019 Imaging [facility] Virtual Revenu e Appointment Location [...] 10/24/2019 Encounte r for PACS 8:02 AM RAPIER INSERTION LOOM FIXER consultation documented in this encounter Results * CT Outside images for PACS (10/24/2019 8:02 AM RAPIER INSERTION LOOM FIXER) Specimen Performing Organization Address City/State/Zipcode Ph one Number [place] documented in this encounter Visit Diagnoses Diagnosis Encounter for consultation documented in this encounter
--- OUTSIDE RECORDS SUMMARY | 2019-11-18 00:25 | XMS REPORT | Encounter Summary ---
Author Author [facility] Organization [facility] Address Unknown Phone Unavailable Care Team Providers Care Pyrometer Operator Name Role Phone Reji Jacob PCP Encounter Details Care Team Description Date Type Department Encounter for consultation 10/24/[address] [facility] Virtual Revenu e Appointment Location Social History [...] 10/24/2019 Encounte r for PACS 8:02 AM ROOM ATTENDANTS consultation documented in this encounter Results * CT Outside images for PACS (10/24/2019 8:02 AM ROOM ATTENDANTS) Specimen Performing Organization Address City/State/Zipcode Ph one Number [place] documented in this encounter Visit Diagnoses Diagnosis Encounter for consultation documented in this encounter
--- OUTSIDE RECORDS SUMMARY | 2019-11-18 00:25 | XMS REPORT | Encounter Summary ---
Author Author [facility] Organization [facility] Address Unknown Phone Unavailable Care Team Providers Care Interactive Media Marketing Strategist Name Role Phone Reji Jacob PCP Encounter Details Care Team Description Date Type Department Encounter for consultation 10/22/2019 Imaging [facility] Virtual Revenu e Appointment Location [...] Diag nosis US OUTSIDE IMAGES FOR Routine 10/22/2019 Encounte r for PACS 3:21 PM EXTRA GANG SUPERVISOR consultation documented in this encounter Results * US Outside images for PACS (10/22/2019 3:21 PM EXTRA GANG SUPERVISOR) Specimen Performing Organization Address City/State/Zipcode Ph one Number [place] documented in this encounter Visit Diagnoses Diagnosis Encounter for consultation documented in this encounter
--- OUTSIDE RECORDS SUMMARY | 2019-11-18 00:25 | XMS REPORT | Encounter Summary ---
Author Author [facility] Organization [facility] Address Unknown Phone Unavailable Care Team Providers Care Pill Machine Operator Name Role Phone Reji Jacob PCP Reason for Visit * Reason Comments Correspondence Encounter Details Care Team Description Date Type Department Joe Harris RN Correspondence 10/22/2019 Telephone [facility] [address] [place] [address] Social History Date Tobacco Use Types Packs/Day [...] encounter Miscellaneous Notes * Telephone Encounter - Savita Reyna RN - 10/23/2019 9:32 AM WEB PRESS ROLL TENDER 10/[address] [facility], spoke with Marsha and she stated that patient was still there and she would speak with Dr Li and call back, Informed her that I left a message for Jazz Becerril about it being approved. PRESS ROLL TENDER * Telephone Encounter - Savita Reyna RN - 10/23/2019 9:28 AM WEB PRESS ROLL TENDER 10/23 message left for Jazz Becerril manager brand for CV imaging scheduling to see if melissa ey have reached out to patient PRESS ROLL TENDER * Telephone Encounter - Korin Rehman RN - 10/22/2019 4:04 PM WEB PRESS ROLL TENDER Zain to patient. Explained that pt will need to have a gated CV CT tomorrow. Pt gave the following info about his insurance. [employer] # [id number] [facility] Provider services Emailed info to CV Imaging and [employer] so that the CT can be preauthed. Instructed pt that he should be expecting further calls from our office so that he can be looking out for our call. VU. PRESS ROLL TENDER * Telephone Encounter - Joe Harris RN - 10/22/2019 3:12 PM WEB PRESS ROLL TENDER Attempted call to patient again, no answer, VM full. PRESS ROLL TENDER * Telephone Encounter - Joe Harris RN - 10/22/2019 2:44 PM WEB PRESS ROLL TENDER Received VM from patient stating he was returning call and to call back. Remy figueroa call to patient, no answer and VM full. Spoke with Marsha. She reports he d oes have Tereza TRISTAN, she is awaiting correspondence from him with his member ID . Attempted call to patient again, no answer, VM full. PRESS ROLL TENDER * Telephone Encounter - Joe Harris RN - 10/22/2019 1:40 PM WEB PRESS ROLL TENDER Received call from Marsha with [facility]/Dr. Li's office ([facility]) to discuss appointment scheduled tomorrow. She does not have imaging of ec ho/cath report from 2019 and CTA from 2018. She will reach out to [facility] for vy ges but may need to reschedule if unable to get. Also discussed CV CT heart marta ded study that is not scheduled same day as ordered by Dr. Medina. Stated would rahman ve to look in tot his. She states they can still see patient without this, will have to schedule for him to have an updated study done after. But they cannot see without previous images. Stated would call back. Discussed with Dr. Medina. He e-mailed [facility] staff who were able to upload to vik stinson. He would like to try for heart gated study. E-mail sent to precert department, insurance is not on file. They attempted zain l to patient to obtain with VM box full. They need this in order to authorize. Nuclear department has availability tomorrow as long as study is authorized. Made call to Marsha with [facility], she has call out to patient as well to try to obtai n insurance information. Made call to patient, VM box full. Made call to emergency contact listed on [facility] rt, was able to leave brief message that we are needing to reach patient today a nd for someone to call back. E-mail sent to all parties involved. Checked cloud, only see echo and cath, email sent to [facility] staff. PRESS ROLL TENDER documented in this encounter Plan of Treatment Not on filedocumented as of this encounter Visit Diagnoses Not on filedocumented in this encounter
--- OUTSIDE RECORDS SUMMARY | 2019-11-18 00:25 | XMS REPORT | Encounter Summary ---
Author Author [facility] Organization [facility] Address Unknown Phone Unavailable Care Team Providers Care Yeast Pumper Name Role Phone PCP Unavailable Encounter Details Care Team Description Date Type Department Tone Medina MD [address] [place], [place] [id number] 08/27/2019 Orders Only [facility] [address] [place] [address] Social History Date Tobacco Use Types Packs/Day Years Used Never Assessed Sex Assigned at Date Recorded Not on file Industry Job Start Date Occupation Not on file Not on file Not on file Travel End Travel History Travel Start No recent travel history available. documented as of this encounter Plan of Treatment Not on filedocumented as of this encounter Visit Diagnoses Not on filedocumented in this encounter
--- OUTSIDE RECORDS SUMMARY | 2019-11-18 00:25 | XMS REPORT | Encounter Summary ---
Author Author [facility] Organization [facility] Address Unknown Phone Unavailable Care Team Providers Care Drier Belt Conveyor Name Role Phone Reji Jacob PCP Encounter Details Care Team Description Date Type Department Encounter for consultation 10/22/2019 Imaging [facility] Virtual Revenu e Appointment Location [...] 10/22/2019 Encounte r for PACS 3:24 PM FUEL CELL BINDER consultation documented in this encounter Results * [place] Outside images for PACS (10/22/2019 3:24 PM FUEL CELL BINDER) Specimen Performing Organization Address City/State/Zipcode Ph one Number [place] documented in this encounter Visit Diagnoses Diagnosis Encounter for consultation documented in this encounter
--- OUTSIDE RECORDS SUMMARY | 2019-11-18 00:25 | XMS REPORT | Encounter Summary ---
Author Author [facility] Organization [facility] Address Unknown Phone Unavailable Care Team Providers Care Computing Systems Mechanic Name Role Phone Reji Jacob PCP Encounter Details Care Team Description Date Type Department Encounter for consultation 10/22/2019 Imaging [facility] Virtual Revenu e Appointment Location Social History [...] Diag nosis CT OUTSIDE IMAGES FOR Routine 10/22/2019 Encounte r for PACS 3:22 PM ACCOUNT SUPPORT REP consultation documented in this encounter Results * CT Outside images for PACS (10/22/2019 3:22 PM ACCOUNT SUPPORT REP) Specimen Performing Organization Address City/State/Zipcode Ph one Number [place] documented in this encounter Visit Diagnoses Diagnosis Encounter for consultation documented in this encounter
--- OUTSIDE RECORDS SUMMARY | 2019-11-18 00:25 | XMS REPORT | Encounter Summary ---
Author Author [facility] Organization [facility] Address Unknown Phone Unavailable Care Team Providers Care Noise Abatement Engineer Name Role Phone Reji Jacob PCP Encounter Details Care Team Description Date Type Department Encounter for consultation 10/22/2019 Imaging [facility] Virtual Revenu e Appointment Location Social [...] Diag nosis IR OUTSIDE IMAGES FOR Routine 10/22/2019 Encounte r for PACS 3:23 PM BANQUET COORDINATOR consultation documented in this encounter Results * IR Outside images for PACS (10/22/2019 3:23 PM BANQUET COORDINATOR) Specimen Performing Organization Address City/State/Zipcode Ph one Number [place] documented in this encounter Visit Diagnoses Diagnosis Encounter for consultation documented in this encounter
--- OUTSIDE RECORDS SUMMARY | 2019-11-18 00:25 | XMS REPORT | Encounter Summary ---
Author Author [facility] Organization [facility] Address Unknown Phone Unavailable Care Team Providers Care Human Resources Office Assistant Name Role Phone Reji Jacob PCP Encounter Details Care Team Description Date Type Department Encounter for consultation 10/24/2019 Imaging [facility] Virtual Revenu e Appointment Location Social History [...] 10/24/2019 Encounte r for PACS 7:59 AM SUPERVISOR ENGINE ASSEMBLY consultation documented in this encounter Results * CT Outside images for PACS (10/24/2019 7:59 AM SUPERVISOR ENGINE ASSEMBLY) Specimen Performing Organization Address City/State/Zipcode Ph one Number [email or web address] documented in this encounter Visit Diagnoses Diagnosis Encounter for consultation documented in this encounter
--- OUTSIDE RECORDS SUMMARY | 2019-11-18 00:25 | XMS REPORT | Encounter Summary ---
Author Author [facility] Organization [facility] Address Unknown Phone Unavailable Care Team Providers Care Terra [place]ta Roofer Helper Name Role Phone Reji Jacob PCP Encounter Details Care Team Description Date Type Department Tone Medina MD [address] [place] [address] [phone] 09/02/2019 Documentation [facility] [address] [place] [address] Social History Date Tobacco Use Types Packs/Day [...]
--- OUTSIDE RECORDS SUMMARY | 2019-11-18 00:25 | XMS REPORT | Encounter Summary ---
Author Author [facility] Organization [facility] Address Unknown Phone Unavailable Care Team Providers Care Hse Specialist Name Role Phone Reji Jacob PCP Encounter Details Care Team Description Date Type Department Encounter for consultation 10/22/2019 Imaging [facility] Virtual Revenu e Appointment Location Social [...] 10/22/2019 Encounte r for PACS 3:21 PM SHIP CARPENTER consultation documented in this encounter Results * IR Outside images for PACS (10/22/2019 3:21 PM SHIP CARPENTER) Specimen Performing Organization Address City/State/Zipcode Ph one Number [email or web address] documented in this encounter Visit Diagnoses Diagnosis Encounter for consultation documented in this encounter
--- OUTSIDE RECORDS SUMMARY | 2019-11-18 00:25 | XMS REPORT | Encounter Summary ---
Author Author [facility] Organization [facility] Address Unknown Phone Unavailable Care Team Providers Care Bottom Scrubber Name Role Phone Reji Jacob PCP Encounter Details Care Team Description Date Type Department Korin Rehman RN 2019 Telephone [facility] [address] [place] [address] Social History Date Tobacco Use Types Packs/Day [...] encounter Miscellaneous Notes * Telephone Encounter - Korin Rehman RN - 2019 8:26 AM EXPANDER Received a VM regarding an upcoming CTS appointment he has scheduled. He wanted to find out the name of the provider. LMTCB NDER documented in this encounter Plan of Treatment Not on filedocumented as of this encounter Visit Diagnoses Not on filedocumented in this encounter
--- OUTSIDE RECORDS SUMMARY | 2019-11-18 00:25 | XMS REPORT | Encounter Summary ---
Author Author [facility] Organization [facility] Address Unknown Phone Unavailable Care Team Providers Care Driver/Sales Workers Name Role Phone Reji Jacob PCP Encounter Details Care Team Description Date Type Department Encounter for consultation 10/24/2019 Imaging [facility] Virtual Revenu e Appointment Location Social History [...] 10/24/2019 Encounte r for PACS 8:01 AM MANAGER CASINO consultation documented in this encounter Results * US Outside images for PACS (10/24/2019 8:01 AM MANAGER CASINO) Specimen Performing Organization Address City/State/Zipcode Ph one Number [place] documented in this encounter Visit Diagnoses Diagnosis Encounter for consultation documented in this encounter
--- OUTSIDE RECORDS SUMMARY | 2019-11-18 00:26 | XMS REPORT | Encounter Summary ---
Author Author [facility] Organization [facility] Address Unknown Phone Unavailable Care Team Providers Care Tucking Machine Operator Name Role Phone PCP Unavailable Encounter Details Care Team Description Date Type Department Sindy John RN 08/26/2019 Abstract [facility] [address] [place] [address] Social History Date Tobacco Use Types Packs/Day [...] Procedure Name Priority Date/Time Associated Diag nosis CV US LOWER EXTREMITY Routine 07/17/2019 ARTERIAL DUPLEX OUTSIDE RECORD CV US CAROTID OUTSIDE Routine 07/17/2019 RECORD CORONARY ANGIOGRAM Routine 07/10/2019 OUTSIDE RECORD LIPID PANEL Routine 07/10/2019 CBC AND DIFF (MANUAL DIFF Routine 07/10/2019 IF NECESSARY) BASIC METABOLIC PANEL Routine 07/10/2019 ECHO OUTSIDE RECORD Routine 06/25/2019 XR OUTSIDE RECORD Routine 07/31/2018 CT OUTSIDE RECORD Routine 05/22/2018 CORONARY ANGIOGRAM Routine 05/21/2018 OUTSIDE RECORD ECHO OUTSIDE RECORD Routine 05/21/2018 documented in this encounter Results * CV US Carotid Outside Record (07/17/2019) Impressions Performed At Right: No evidence of significant carot id artery stenosis. Antegrade vertebral flow. Left: No evidence of significant car otid artery stenosis. Antegrade vertebral flow. ([facility]) * CV US Lower Extremity Arterial Duplex Outside Record (07/17/2019) Impressions Performed At Right: No evidence of active arterial bleed, or obstruction in common femoral artery. No evidence of deep shane ous thrombosis in the common femoral vein. ([facility]) * Coronary Angiogram Outside Record (07/10/2019) Impressions Performed At 1: Hemodynamics are listed below on sep arate sheets from the report are-refer to those sheets for details. The patient has mild pulmonary artery systolic hypertension with PA sy stolic pressure 39 mmHg the mean pulmonary capillary wedge pressure 19 m m of mercury. Cardiac output is normal and average about 6.2 L/min only with pulmonary bansal units of 1.5 2: Fluoroscopy: Fluoroscopy reveals no valvular calcifications and no coronary artery calcifications are seen . A Lynx device can be seen in the left pulmonary artery 3: Coronary angiography: A: The left main coronary artery appear s angiographically normal and around 6 mm in diameter B: The left anterior descending coronar y artery stretch that is about a 6 mm vessel proximally to exercise distal ly. The LAD and its branches appear to be angiographically normal C: The left circumflex coronary artery is now tiny nondominant vessel with stretch that is about a 6 mm vessel pro ximally to incise distally. The circumflex artery and its branches ar e angiographically normal. D: The right coronary artery on average is about 4 mm vessel and is angiographically normal. E: There is a ramus intermedius branch about 3 mm in approximately and tapers in size distally and is angiogra phically normal. Note that the left ventricle was not do ne during this procedure across the aortic valve with any catheter or w darshana Conclusion: No evidence of any coronary artery disease with mild pulmonary systolic hypertension. See report abo ve for details. ([facility]) * Basic Metabolic Panel (07/10/2019) [facility] Signature Calcium 9.7 8.7 - 10.7 mg/dL Glucose 117 mg/dL Blood Urea 16 4 - 21 mg/dL Nitrogen Potassium 4.5 3.4 - 5.3 mmol/L Sodium 138 137 - 147 mmol/L Chloride 105 99 - 108 mmol/L Creatinine 0.8 0.6 - 1.3 mg/dL Carbon Dioxide 22 13 - 22 mmol/L BUN/Creatinine Ratio eGFR If NonAfricn Am eGFR If Africn Am Specimen Blood - Blood * Lipid Panel (07/10/2019) Triglycerides 189 (A) 40 - 160 mg/dL HDL Cholesterol 33 (A) 35 - 70 mg/dL LDL Cholesterol 110 mg/dL Cholesterol/HDL Ratio LDL INTERPRETATION Non-HDL Cholesterol Cholesterol 181 mg/dL Specimen Blood - Blood * CBC and Diff (manual diff if necessary) (07/10/2019) RBC Hematology Comments WBC 8.8 Hemoglobin 15.2 13.5 - 17.5 g/dL Hematocrit 44 41 - 53 % MCV MCH MCHC % Neutrophils % Imm Grans %Lymphocytes %Monocytes %Eosinophils %Basophils Platelet Count 198 150 - 399 K/L # Granulocytes Immature Grans (Abs) Neutrophils Absolute # Lymphocytes # Monocytes # Eosinophils # Basophils Nucleated RBCs RDW Specimen Blood - Blood * Echo Outside Record (06/25/2019) Ejection Fraction Impressions Performed At 1. The RV is dilated with normal syst olic function. Otherwise normal chamber sizes. 2. Normal LV systolic function, estim ated LVEF 60-65%. Normal diastolic function. 3. The aortic valve leaflets are poor ly visualized. However there appears to be thickening of the right c oronary leaflet. Cannot exclude bicuspid aortic valve. Severe aortic stenosis by Doppler, mild aortic regurgitation. 4. The ascending aorta is dilated. Sinus of Valsalva diameter 3.5 cm, ascending aorta diameter 5.0 cm, aortic arch diameter 3.7 cm Compared to the prior study aortic sten osis now appears severe. In addition, the aortic root diameter is n ow estimated to be 5.0 cm. [facility] * XR Outside Record (07/31/2018) Impressions Performed At Negative for acute infiltrate. [facility] * CT Outside Record (05/22/2018) Impressions Performed At 1. 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 No other aneurysm. No dissection or atheromatous disease. 2. Small calcifications of the aortic valve. 3. Otherwise, normal study. ([facility]) * Coronary Angiogram Outside Record (05/21/2018) Impressions Performed At 1. HEMODYNAMICS: Hemodynamics are l isted fully on separate sheets within this report. Please refer to those se parate sheets for details. 2. FLUOROSCOPY: Fluoroscopy reveals no valvular calcifications. No coronary calcifications are seen. 3. CORONARY ANGIOGRAPHY: A. The left main coronary artery is n ormal at around 5 mm in diameter. B. The left anterior descending coron mikhail artery starts out about a 4.5 mm vessel proximally and tapers in size di stally. The LAD and its branches appear to be normal. C. The left circumflex artery on aver age is about a 5 mm vessel and tapers in size distally. The left circu mflex is anatomically codominant from the RCA and is normal. D. The right coronary artery is an an atomically codominant vessel with a high innominate takeoff, with the Willi ams right able to cannulate successfully and this shows that the RC A is angiographically normal and around a 3 mm vessel on average until i t tapers in size distally. 4. LEFT VENTRICULOGRAPHY: Left vent riculography done with the pigtail catheter in about the 30 degree MATTSON pos ition shows the following: A. QUALITATIVE: The left ventricle appears to be mildly enlarged in size and contracts vigorously normally. No regional wall motion abnormalities are seen. No mitral valve prolapse is n oted. B. QUANTITATIVE: The LVEF is visual ly about 60%. 5. Aortic root angiography reveals mi ld aortic regurgitation, along with a moderately enlarged aortic root which measures about 47 mm in diameter. The ascending aorta also appears to be enlarged at about 47 mmHg extending up to the arch area. 6. Right iliofemoral angiography done at the end of the case was normal. A StarClose device was used for hemosta sis. CONCLUSION: 1. No angiographic evidence of any co ronary disease. 2. The LV is mildly enlarged but cont racts normally. 3. Moderately enlarged thoracic aorta as discussed above. 4. See report for details. ([facility]) * Echo Outside Record (05/21/2018) Ejection Fraction Impressions Performed At 1. CHAMBER SIZES: The left ventric le appears to be top normal in size and mildly concentrically hypertrophied . The left atrium appears to be mildly enlarged in size and normal in a ppearance. The right ventricle and right atrium appear to be normal in siz e and thickness. 2. WALL MOTION: All cardiac chambe rs contract normally. The LVEF is visually on the order of about 60%. 3. The aortic root at the level of t he aortic valve is mildly dilated at 37.5 mm in diameter and the ascending a amrita is mildly dilated at 44 mm in diameter. 4. There is no pericardial effusion. 5. VALVES: The tricuspid valve and pulmonic valve appear normal. Mitral valve appears normal. The aort ic valve has a right coronary cusp that is thickened and appears to have w hat is probably a bicuspid aortic valve. I do not see all three leaflet s of the valve and I think it is probably a bicuspid valve. No cardiac valves appear to prolapse. Cannot rule out this thickening via vegetation but it has more the look of calcification. 6. Doppler with color-flow interroga tion reveals moderate aortic stenosis. The peak transaortic gradie nt is 42.3 mmHg, with a mean gradient of 24.9 mmHg. There also camila ears to be mild aortic regurgitation and trace tricuspid regurgitation. No o ther valvular stenotic or regurgitant lesions seen. Estimated p ulmonary systolic pressures are normal. CONCLUSION: 1. Thickened right coronary leaflet of the aortic valve that I cannot rule out a vegetation but has more appe arance of calcification. It appears the patient has likely a bicusp id aortic valve and there is moderate aortic stenosis with mild aort ic regurgitation. 2. Trace tricuspid regurgitation. 3. Mild LVH and mild left atrial enla rgement but otherwise normal contractility and chamber sizes with LV EF on the order of about 60%. 4. Mild enlargement of the thoracic a amrita as noted above measuring at the ascending aorta about 44 mm in diameter . ([facility]) documented in this encounter Visit Diagnoses Diagnosis SVT (supraventricular tachycardia) (HCC ) Other specified cardiac dysrhythmias Morbid obesity (HCC) Morbid obesity Bicuspid aortic valve Congenital insufficiency of aortic valv e Ascending aorta dilatation (HCC) Thoracic aneurysm without mention of ru pture Anxiety Anxiety state, unspecified documented in this encounter
--- OUTSIDE RECORDS SUMMARY | 2019-11-18 00:26 | XMS REPORT | Encounter Summary ---
Author Author [facility] Organization [facility] Address Unknown Phone Unavailable Care Team Providers Care Step Down Nurse Name Role Phone PCP Unavailable Encounter Details Care Team Description Date Type Department Tone Medina MD [address] [place], [place] [id number] 08/19/2019 Documentation [facility] [address] [place] [address] Social History Date Tobacco Use Types Packs/Day [...]
--- OUTSIDE RECORDS SUMMARY | 2019-11-18 00:29 | XMS REPORT | Continuity of Care Document ---
Author Organization Unknown Address Unknown Phone Unavailable Allergies Active Description Code Type Severity Reaction Onset Reported/Identified Relationship to Patient Clinical Status Yes No Known Drug Allergies [id number] Drug Allergy Mild N/A 01/01/2019 Medications There is no data. Problems Date Dx Coded Attending Type Code Diagnosis Diagnosed By 10/20/2016 MAGUI URIBE MD Ot I35 .8 OTHER NONRHEUMATIC AORTIC VALVE DISORDER 10/20/2016 MAGUI URIBE MD Ot I35 .8 OTHER NONRHEUMATIC AORTIC VALVE DISORDER 10/21/2016 MAGUI URIBE MD Ot I35 .8 OTHER NONRHEUMATIC AORTIC VALVE DISORDER 11/03/2016 MAGUI URIBE MD Ot I35 .8 OTHER NONRHEUMATIC AORTIC VALVE DISORDER 11/04/2016 MAGUI URIBE MD Ot I35 .8 OTHER NONRHEUMATIC AORTIC VALVE DISORDER 05/23/2017 MAGUI URIBE MD Ot I35 .8 OTHER NONRHEUMATIC AORTIC VALVE DISORDER 10/06/2018 MAGUI URIBE MD Ot I35 .8 OTHER NONRHEUMATIC AORTIC VALVE DISORDER 10/06/2018 MAGUI URIBE MD Ot I35 .8 OTHER NONRHEUMATIC AORTIC VALVE DISORDER 10/07/2018 SHEFALI NOEL MD, FACCP CCDS Ot I47.1 SUPRAVENTRICULAR TACHYCARDIA 10/07/2018 SHEFALI NOEL MD, FACC FACP CCDS Ot Z87.891 PERSONAL HISTORY OF NICOTINE DEPENDENCE 10/07/2018 SHEFALI NOEL MD, FACC FACP CCDS Ot I47.1 SUPRAVENTRICULAR TACHYCARDIA 10/07/2018 SHEFALI NOEL MD, FACC FACP CCDS Ot Z87.891 PERSONAL HISTORY OF NICOTINE DEPENDENCE 10/09/2018 SHEFALI NOEL MD, FACC FACP CCDS Ot I47.1 SUPRAVENTRICULAR TACHYCARDIA 10/09/2018 SHEFALI NOEL MD, FACC FACP CCDS Ot Z87.891 PERSONAL HISTORY OF NICOTINE DEPENDENCE 10/09/2018 SHEFALI NOEL MD, FACC FACP CCDS Ot I47.1 SUPRAVENTRICULAR TACHYCARDIA 10/09/2018 SADIE BADILLO FACC, ALI FACP CCDS Ot Z87.891 PERSONAL HISTORY OF NICOTINE DEPENDENCE 10/21/2018 GATITO BADILLO, Yessi BURTON Ot R00 .2 PALPITATIONS 11/06/2018 SANDRITA BUTLER MD Ot F12.10 CANNABIS ABUSE, UNCOMPLICATED 11/06/2018 SANDRITA BUTLER MD Ot F17.210 NICOTINE DEPENDENCE, CIGARETTES, UNCOMPL 11/06/2018 SANDRITA BUTLER MD Ot G43.909 MIGRAINE, UNSP, NOT INTRACTABLE, WITHOUT 11/06/2018 SANDRITA BUTLER MD Ot R51 HEADACHE 11/06/2018 CARRIE BADILLO, SANDRITA Dickson Ot Z82.49 FAMILY HX OF ISCHEM HEART DIS AND OTH DI 11/06/2018 SANDRITA BUTLER MD Ot Z86.69 PERSONAL HISTORY OF DIS OF THE NERVOUS S 11/06/2018 RONY BADILLO, MAGUI Bueno Ot I35 .8 OTHER NONRHEUMATIC AORTIC VALVE DISORDER 11/06/2018 Yessi MEDEROS MD Ot R00 .2 PALPITATIONS 11/08/2018 CARRIE BADILLO, SANDRITA Dickson Ot F12.10 CANNABIS ABUSE, UNCOMPLICATED 11/08/2018 SANDRITA BUTLER MD Ot F17.210 NICOTINE DEPENDENCE, CIGARETTES, UNCOMPL 11/08/2018 SANDRITA BUTLER MD Ot G43.909 MIGRAINE, UNSP, NOT INTRACTABLE, WITHOUT 11/08/2018 SANDRITA BUTLER MD Ot R51 HEADACHE 11/08/2018 SANDRITA BUTLER MD Ot Z82.49 FAMILY HX OF ISCHEM HEART DIS AND OTH DI 11/08/2018 SANDRITA BUTLER MD Ot Z86.69 PERSONAL HISTORY OF DIS OF THE NERVOUS S 01/01/2019 TAMMY BADILLO, KERVIN Portillo Ot E78. 00 PURE HYPERCHOLESTEROLEMIA, UNSPECIFIED 01/01/2019 TAMMY BADILLO, KERVIN Portillo Ot F17.210 NICOTINE DEPENDENCE, CIGARETTES, UNCOMPL 01/01/2019 KERVIN MUNOZ MD Ot G43.909 MIGRAINE, UNSP, NOT INTRACTABLE, WITHOUT 01/01/2019 TAMMY BADILLO, KERVIN Portillo Ot I48. 91 UNSPECIFIED ATRIAL FIBRILLATION 01/01/2019 KERVIN MUNOZ MD Ot M25.512 PAIN IN LEFT SHOULDER 01/01/2019 KERVIN MUNOZ MD Ot M54. 6 PAIN IN THORACIC SPINE 01/01/2019 KERVIN MUNOZ MD Ot R07. 9 CHEST PAIN, UNSPECIFIED 01/01/2019 KERVIN MUNOZ MD Ot X50.0XXA OVEREXERTION FROM STRENUOUS MOVEMENT OR 01/01/2019 KERVIN MUNOZ MD Ot Z82. 49 FAMILY HX OF ISCHEM HEART DIS AND OTH DI 01/01/2019 MAGUI URIBE MD Ot I35 .8 OTHER NONRHEUMATIC AORTIC VALVE DISORDER 01/01/2019 Yessi MEDEROS MD Ot R00 .2 PALPITATIONS 01/02/2019 Yessi MEDEROS MD Ot R00 .2 PALPITATIONS 01/02/2019 Yessi MEDEROS MD Ot F17.210 NICOTINE DEPENDENCE, CIGARETTES, UNCOMPL 01/02/2019 Yessi MEDEROS MD Ot I35 .0 NONRHEUMATIC AORTIC (VALVE) STENOSIS 01/02/2019 Yessi MEDEROS MD Ot I47 .2 VENTRICULAR TACHYCARDIA 01/02/2019 Yessi MEDEROS MD Ot I71 .2 THORACIC AORTIC ANEURYSM, 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 01/02/2019 Yessi MEDEROS MD Ot R00 .2 PALPITATIONS 01/02/2019 Yessi MEDEROS MD Ot Z79.82 CUSTODIAL (CURRENT) USE OF ASPIRIN 01/02/2019 Yessi MEDEROS MD, Ot 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 00 PURE HYPERCHOLESTEROLEMIA, UNSPECIFIED 01/02/2019 KERVIN MUNOZ MD Ot F12. 10 CANNABIS ABUSE, UNCOMPLICATED 01/02/2019 KERVIN MUNOZ MD Ot F17.210 NICOTINE DEPENDENCE, CIGARETTES, UNCOMPL 01/02/2019 KERVIN MUNOZ MD Ot G43.909 MIGRAINE, UNSP, NOT INTRACTABLE, WITHOUT 01/02/2019 KERVIN MUNOZ MD Ot I48. 91 UNSPECIFIED ATRIAL FIBRILLATION 01/02/2019 KERVIN MUNOZ MD Ot R42 DIZZINESS AND GIDDINESS 01/02/2019 KERVIN MUNOZ MD Ot Z82. 49 FAMILY HX OF ISCHEM HEART DIS AND OTH DI 01/03/2019 SANDRITA BUTLER MD Ot F12.10 CANNABIS ABUSE, UNCOMPLICATED 01/03/2019 CARRIE BADILLO, SANDRITA Dickson Ot F17.210 NICOTINE DEPENDENCE, CIGARETTES, UNCOMPL 01/03/2019 CARRIE BADILLO, SANDRITA Dickson Ot G43.909 MIGRAINE, UNSP, NOT INTRACTABLE, WITHOUT 01/03/2019 CARRIE BADILLO, SANDRITA Dickson Ot R51 HEADACHE 01/03/2019 CARRIE BADILLO, SANDRITA Dickson Ot Z82.49 FAMILY HX OF ISCHEM HEART DIS AND OTH DI 01/03/2019 CARRIE BADILLO, SANDRITA Dickson Ot Z86.69 PERSONAL HISTORY OF DIS OF THE NERVOUS S 01/03/2019 KERVIN MUNOZ MD J Ot E78. 00 PURE HYPERCHOLESTEROLEMIA, UNSPECIFIED 01/03/2019 TAMMY BADILLO, KERVIN J Ot F17.210 NICOTINE DEPENDENCE, CIGARETTES, UNCOMPL 01/03/2019 KERVIN MUNOZ MD Ot G43.909 MIGRAINE, UNSP, NOT INTRACTABLE, WITHOUT 01/03/2019 KERVIN MUNOZ MD J Ot I48. 91 UNSPECIFIED ATRIAL FIBRILLATION 01/03/2019 KERVIN MUNOZ MD J Ot M25.512 PAIN IN LEFT SHOULDER 01/03/2019 KERVIN MUNOZ MD J Ot M54. 6 PAIN IN THORACIC SPINE 01/03/2019 KERVIN MUNOZ MD J Ot R07. 9 CHEST PAIN, UNSPECIFIED 01/03/2019 KERVIN MUNOZ MD J Ot X50.0XXA OVEREXERTION FROM STRENUOUS MOVEMENT OR 01/03/2019 KERVIN MUNOZ MD J Ot Z82. 49 FAMILY HX OF ISCHEM HEART DIS AND OTH DI 01/05/2019 GATITO BADILLO, Yessi BURTON Ot R00 .2 PALPITATIONS 01/06/2019 KERVIN MUNOZ MD Ot E78. 00 PURE HYPERCHOLESTEROLEMIA, UNSPECIFIED 01/06/2019 KERVIN MUNOZ MD Ot F12. 10 CANNABIS ABUSE, UNCOMPLICATED 01/06/2019 KERVIN MUNOZ MD J Ot F17.210 NICOTINE DEPENDENCE, CIGARETTES, UNCOMPL 01/06/2019 KERVIN MUNOZ MD J Ot G43.909 MIGRAINE, UNSP, NOT INTRACTABLE, WITHOUT 01/06/2019 KERVIN MUNOZ MD J Ot I48. 91 UNSPECIFIED ATRIAL FIBRILLATION 01/06/2019 KERVIN MUNOZ MD J Ot R42 DIZZINESS AND GIDDINESS 01/06/2019 KERVIN MUNOZ MD Ot Z82. 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 01/06/2019 GATITO BADILLO, Yessi BURTON Ot 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 04/30/2019 MIKEL CASTLE MD Ot E78.00 PURE HYPERCHOLESTEROLEMIA, UNSPECIFIED 04/30/2019 MIKEL CASTLE MD Ot F41.9 ANXIETY DISORDER, UNSPECIFIED 04/30/2019 MIKEL CASTLE MD Ot G43.909 MIGRAINE, UNSP, NOT INTRACTABLE, WITHOUT 04/30/2019 MIKEL CASTLE MD Ot I48.91 UNSPECIFIED ATRIAL FIBRILLATION 04/30/2019 MIKEL CASTLE MD Ot R07.2 PRECORDIAL PAIN 04/30/2019 MIKEL CASTLE MD Ot Z82.49 FAMILY HX OF ISCHEM HEART DIS AND OTH DI 05/02/2019 MIKEL CASTLE MD Ot E78.00 PURE HYPERCHOLESTEROLEMIA, UNSPECIFIED 05/02/2019 MIKEL CASTLE MD Ot F41.9 ANXIETY DISORDER, UNSPECIFIED 05/02/2019 MIKEL CASTLE MD Ot G43.909 MIGRAINE, UNSP, NOT INTRACTABLE, WITHOUT 05/02/2019 MIKEL CASTLE MD Ot I48.91 UNSPECIFIED ATRIAL FIBRILLATION 05/02/2019 MIKEL CASTLE MD Ot R07.2 PRECORDIAL PAIN 05/02/2019 MIKEL CASTLE MD Ot Z82.49 FAMILY HX OF ISCHEM HEART DIS AND OTH DI 05/24/2019 LUISITO BADILLO, HINA Edward Ot E78. 00 PURE HYPERCHOLESTEROLEMIA, UNSPECIFIED 05/24/2019 HINA JORGE MD Ot F17.210 NICOTINE DEPENDENCE, CIGARETTES, UNCOMPL 05/24/2019 HINA JORGE MD Ot G43.909 MIGRAINE, UNSP, NOT INTRACTABLE, WITHOUT 05/24/2019 HINA JORGE MD Ot I48. 91 UNSPECIFIED ATRIAL FIBRILLATION 05/24/2019 HINA JORGE MD Ot R07. 9 CHEST PAIN, UNSPECIFIED 05/24/2019 HINA JORGE MD Ot Z82. 49 FAMILY HX OF ISCHEM HEART DIS AND OTH DI 05/27/2019 HINA JORGE MD Ot E78. 00 PURE HYPERCHOLESTEROLEMIA, UNSPECIFIED 05/27/2019 HINA JORGE MD Ot F17.210 NICOTINE DEPENDENCE, CIGARETTES, UNCOMPL 05/27/2019 HINA JORGE MD Ot G43.909 MIGRAINE, UNSP, NOT INTRACTABLE, WITHOUT 05/27/2019 HINA JORGE MD Ot I48. 91 UNSPECIFIED ATRIAL FIBRILLATION 05/27/2019 HINA JORGE MD Ot R07. 9 CHEST PAIN, UNSPECIFIED 05/27/2019 HINA JORGE MD Ot Z82. 49 FAMILY HX OF ISCHEM HEART DIS AND OTH DI 05/30/2019 HINA JORGE MD Ot E78. 00 PURE HYPERCHOLESTEROLEMIA, UNSPECIFIED 05/30/2019 HINA JORGE MD Ot F17.210 NICOTINE DEPENDENCE, CIGARETTES, UNCOMPL 05/30/2019 HINA JORGE MD Ot G43.909 MIGRAINE, UNSP, NOT INTRACTABLE, WITHOUT 05/30/2019 HINA JORGE MD Ot I48. 91 UNSPECIFIED ATRIAL FIBRILLATION 05/30/2019 HINA JORGE MD Ot R07. 9 CHEST PAIN, UNSPECIFIED 05/30/2019 HINA JORGE MD Ot Z82. 49 FAMILY HX OF ISCHEM HEART DIS AND OTH DI 07/12/2019 RONY BADILLO, MAGUI Bueno Ot I35 .8 OTHER NONRHEUMATIC AORTIC VALVE DISORDER 07/12/2019 HINA JORGE MD Ot E78. 00 PURE HYPERCHOLESTEROLEMIA, UNSPECIFIED 07/12/2019 HINA JORGE MD Ot G43.909 MIGRAINE, UNSP, NOT INTRACTABLE, WITHOUT 07/12/2019 HINA JORGE MD Ot I48. 91 UNSPECIFIED ATRIAL FIBRILLATION 07/12/2019 HINA JORGE MD Ot R68. 84 JAW PAIN 07/12/2019 HINA JORGE MD Ot Z82. 49 FAMILY HX OF ISCHEM HEART DIS AND OTH DI 07/15/2019 HINA JORGE MD Ot E78. 00 PURE HYPERCHOLESTEROLEMIA, UNSPECIFIED 07/15/2019 HINA JORGE MD Ot G43.909 MIGRAINE, UNSP, NOT INTRACTABLE, WITHOUT 07/15/2019 HINA JORGE MD Ot I48. 91 UNSPECIFIED ATRIAL FIBRILLATION 07/15/2019 HINA JORGE MD Ot R68. 84 JAW PAIN 07/15/2019 HINA JORGE MD Ot Z82. 49 FAMILY HX OF ISCHEM HEART DIS AND OTH DI 07/18/2019 HINA JORGE MD Ot E78. 00 PURE HYPERCHOLESTEROLEMIA, UNSPECIFIED 07/18/2019 HINA JORGE MD Ot G43.909 MIGRAINE, UNSP, NOT INTRACTABLE, WITHOUT 07/18/2019 HINA JORGE MD Ot I48. 91 UNSPECIFIED ATRIAL FIBRILLATION 07/18/2019 HINA JORGE MD Ot R68. 84 JAW PAIN 07/18/2019 HINA JORGE MD Ot Z82. 49 FAMILY HX OF ISCHEM HEART DIS AND OTH DI 08/16/2019 DANISH PARKER MD Ot E78. 00 PURE HYPERCHOLESTEROLEMIA, UNSPECIFIED 08/16/2019 DANISH PARKER MD Ot F17.210 NICOTINE DEPENDENCE, CIGARETTES, UNCOMPL 08/16/2019 DANISH PARKER MD Ot G43.909 MIGRAINE, UNSP, NOT INTRACTABLE, WITHOUT 08/16/2019 DANISH PARKER MD Ot I48. 91 UNSPECIFIED ATRIAL FIBRILLATION 08/16/2019 DANISH PARKER MD Ot M25.512 PAIN IN LEFT SHOULDER 08/16/2019 DANISH PARKER MD Ot M54. 2 CERVICALGIA 08/16/2019 DANISH PARKER MD Ot Z82. 49 FAMILY HX OF ISCHEM HEART DIS AND OTH DI 11/17/2019 RONY BADILLO, MAGUI A Ot I35 .8 OTHER NONRHEUMATIC AORTIC VALVE DISORDER Procedures There is no data. Results Test Result Range Complete blood count (CBC) with automate d white blood cell (WBC) differential - 10/06/18 15:55 Blood leukocytes automated count (number/volume) 7.6 10*3/uL 4.3-11.0 Blood erythrocytes automated count (number/volume) 5.20 10*6/uL 4.35-5.85 Venous blood hemoglobin measurement (mass/volume) 15.4 g/dL 13.3-17.7 Blood hematocrit (volume fraction) 42 % 40-54 Automated erythrocyte mean corpuscular volume 81 [ foz_us] 80-99 Automated erythrocyte mean corpuscular h emoglobin (mass per erythrocyte) 30 pg 25-34 Automated erythrocyte mean corpuscular h emoglobin concentration measurement (mass/volume) 37 g/dL 32-36 Automated erythrocyte distribution width ratio 12. 6 % 10.0- 14.5 Automated blood platelet count (count/volume) 211 10*3/uL 130-400 Automated blood platelet mean volume measurement 10.1 [foz_us] 7.4-10.4 Automated blood neutrophils/100 leukocytes 52 % 42-75 Automated blood lymphocytes/100 leukocytes 39 % 12-44 Blood monocytes/100 leukocytes 8 % 0-12 Automated blood eosinophils/100 leukocytes 1 % 0-10 Automated blood basophils/100 leukocytes 0 % 0-10 Blood neutrophils automated count (number/volume) 3.9 10*3 1.8-7.8 Blood lymphocytes automated count (number/volume) 2.9 10*3 1.0-4.0 Blood monocytes automated count (number/volume) 0. 6 10*3 0.0-1.0 Automated eosinophil count 0.1 10*3/uL 0 .0-0.3 Automated blood basophil count (count/volume) 0.0 10*3/uL 0.0-0.1 Comprehensive metabolic panel - 10/06/18 15:55 Serum or plasma sodium measurement (moles/volume) 138 mmol/L 135-145 Serum or plasma potassium measurement (moles/volume) 3.9 mmol/L 3.6-5.0 Serum or plasma chloride measurement (moles/volume) 106 mmol/L 98-107 Carbon dioxide 20 mmol/L 21-32 Serum or plasma anion gap determination (moles/volume) 12 mmol/L 5-14 Serum or plasma urea nitrogen measurement (mass/volume ) 8 mg/dL 7-18 Serum or plasma creatinine measurement (mass/volume) 0.82 mg/dL 0.60-1.30 Serum or plasma urea nitrogen/creatinine mass ratio 10 NRG Serum or plasma creatinine measurement w ith calculation of estimated glomerular filtration rate > NRG Serum or plasma glucose measurement (mass/volume) 114 mg/dL 70-105 Serum or plasma calcium measurement (mass/volume) 9.0 mg/dL 8.5-10.1 Serum or plasma total bilirubin measurement (mass/volu me) 0.4 mg/dL 0.1-1.0 Serum or plasma alkaline phosphatase rojelio surement (enzymatic activity/volume) 58 U/L 40-136 Serum or plasma aspartate aminotransfera se measurement (enzymatic activity/volume) 24 U/L 5-34 Serum or plasma alanine aminotransferase measurement (enzymatic activity/volume) 27 U/L 0-55 Serum or plasma protein measurement (mass/volume) 7.0 g/dL 6.4-8.2 Serum or plasma albumin measurement (mass/volume) 4.3 g/dL 3.2-4.5 CALCIUM CORRECTED 8.8 mg/dL 8.5-10.1 Magnesium - 10/06/18 15:55 Magnesium 2.0 mg/dL 1.8-2.4 Serum or plasma troponin i.cardiac measu rement (mass/volume) - 10/06/18 15:55 Serum or plasma troponin i.cardiac measurement (mass/v olume) 0.094 ng/mL <0.028 Complete blood count (CBC) with automate d white blood cell (WBC) differential - 10/07/18 03:40 Blood leukocytes automated count (number/volume) 6.6 10*3/uL 4.3-11.0 Blood erythrocytes automated count (number/volume) 4.76 10*6/uL 4.35-5.85 Venous blood hemoglobin measurement (mass/volume) 14.0 g/dL 13.3-17.7 Blood hematocrit (volume fraction) 39 % 40-54 Automated erythrocyte mean corpuscular volume 82 [ foz_us] 80-99 Automated erythrocyte mean corpuscular h emoglobin (mass per erythrocyte) 29 pg 25-34 Automated erythrocyte mean corpuscular h emoglobin concentration measurement (mass/volume) 36 g/dL 32-36 Automated erythrocyte distribution width ratio 12. 5 % 10.0- 14.5 Automated blood platelet count (count/volume) 174 10*3/uL 130-400 Automated blood platelet mean volume measurement 9.9 [foz_us] 7.4-10.4 Automated blood neutrophils/100 leukocytes 42 % 42-75 Automated blood lymphocytes/100 leukocytes 47 % 12-44 Blood monocytes/100 leukocytes 8 % 0-12 Automated blood eosinophils/100 leukocytes 2 % 0-10 Automated blood basophils/100 leukocytes 0 % 0-10 Blood neutrophils automated count (number/volume) 2.8 10*3 1.8-7.8 Blood lymphocytes automated count (number/volume) 3.1 10*3 1.0-4.0 Blood monocytes automated count (number/volume) 0. 6 10*3 0.0-1.0 Automated eosinophil count 0.1 10*3/uL 0 .0-0.3 Automated blood basophil count (count/volume) 0.0 10*3/uL 0.0-0.1 Comprehensive metabolic panel - 10/07/18 03:40 Serum or plasma sodium measurement (moles/volume) 140 mmol/L 135-145 Serum or plasma potassium measurement (moles/volume) 4.1 mmol/L 3.6-5.0 Serum or plasma chloride measurement (moles/volume) 111 mmol/L 98-107 Carbon dioxide 20 mmol/L 21-32 Serum or plasma anion gap determination (moles/volume) 9 mmol/L 5-14 Serum or plasma urea nitrogen measurement (mass/volume ) 7 mg/dL 7-18 Serum or plasma creatinine measurement (mass/volume) 0.71 mg/dL 0.60-1.30 Serum or plasma urea nitrogen/creatinine mass ratio 10 NRG Serum or plasma creatinine measurement w ith calculation of estimated glomerular filtration rate > NRG Serum or plasma glucose measurement (mass/volume) 96 mg/dL 70-105 Serum or plasma calcium measurement (mass/volume) 8.5 mg/dL 8.5-10.1 Serum or plasma total bilirubin measurement (mass/volu me) 0.3 mg/dL 0.1-1.0 Serum or plasma alkaline phosphatase rojelio surement (enzymatic activity/volume) 49 U/L 40-136 Serum or plasma aspartate aminotransfera se measurement (enzymatic activity/volume) 19 U/L 5-34 Serum or plasma alanine aminotransferase measurement (enzymatic activity/volume) 22 U/L 0-55 Serum or plasma protein measurement (mass/volume) 6.0 g/dL 6.4-8.2 Serum or plasma albumin measurement (mass/volume) 3.6 g/dL 3.2-4.5 CALCIUM CORRECTED 8.8 mg/dL 8.5-10.1 GLUCOSE, SERUM - 11/20/18 13:09 GLUCOSE 104 mg/dL 65-99 Blood CBC with ordered manual differenti al panel - 01/01/19 08:00 Blood leukocytes automated count (number/volume) 9.7 10*3/uL 4.3-11.0 Blood erythrocytes automated count (number/volume) 5.52 10*6/uL 4.35-5.85 Venous blood hemoglobin measurement (mass/volume) 16.4 g/dL 13.3-17.7 Blood hematocrit (volume fraction) 46 % 40-54 Automated erythrocyte mean corpuscular volume 82 [ foz_us] 80-99 Automated erythrocyte mean corpuscular h emoglobin (mass per erythrocyte) 30 pg 25-34 Automated erythrocyte mean corpuscular h emoglobin concentration measurement (mass/volume) 36 g/dL 32-36 Automated erythrocyte distribution width ratio 13. 0 % 10.0- 14.5 Automated blood platelet count (count/volume) 232 10*3/uL 130-400 Automated blood platelet mean volume measurement 10.3 [foz_us] 7.4-10.4 Automated blood neutrophils/100 leukocytes 59 % 42-75 Automated blood lymphocytes/100 leukocytes 30 % 12-44 Blood monocytes/100 leukocytes 8 % NRG Automated blood eosinophils/100 leukocytes 3 % 0-10 Automated blood basophils/100 leukocytes 0 % 0-10 Blood neutrophils automated count (number/volume) 5.7 10*3 1.8-7.8 Blood lymphocytes automated count (number/volume) 2.9 10*3 1.0-4.0 Blood monocytes automated count (number/volume) 0. 9 10*3 0.0-1.0 Automated eosinophil count 0.3 10*3/uL 0 .0-0.3 Automated blood basophil count (count/volume) 0.0 10*3/uL 0.0-0.1 Manual blood segmented neutrophils/100 leukocytes 56 % NRG Blood band neutrophils/100 leukocytes 1 % NRG Manual blood lymphocytes/100 leukocytes 30 % NRG Manual eosinophils/100 leukocytes in nose 5 % NRG Manual blood basophils/100 leukocytes 0 % NRG Whole blood basic metabolic panel - 09/21 08:00 Serum or plasma sodium measurement (moles/volume) 138 mmol/L 135-145 Serum or plasma potassium measurement (moles/volume) 4.6 mmol/L 3.6-5.0 Serum or plasma chloride measurement (moles/volume) 101 mmol/L 98-107 Carbon dioxide 21 mmol/L 21-32 Serum or plasma anion gap determination (moles/volume) 16 mmol/L 5-14 Serum or plasma urea nitrogen measurement (mass/volume ) 12 mg/dL 7-18 Serum or plasma creatinine measurement (mass/volume) 0.74 mg/dL 0.60-1.30 Serum or plasma urea nitrogen/creatinine mass ratio 16 NRG Serum or plasma creatinine measurement w ith calculation of estimated glomerular filtration rate > NRG Serum or plasma glucose measurement (mass/volume) 130 mg/dL 70-105 Serum or plasma calcium measurement (mass/volume) 8.9 mg/dL 8.5-10.1 TROPONIN T - 01/01/19 08:00 TROPONIN T 8 % <=15 Serum or plasma troponin i.cardiac measu rement (mass/volume) - 01/01/19 10:25 Serum or plasma troponin i.cardiac measurement (mass/v olume) < ng/mL <0.028 Complete blood count (CBC) with automate d white blood cell (WBC) differential - 01/02/19 12:41 Blood leukocytes automated count (number/volume) 8.2 10*3/uL 4.3-11.0 Blood erythrocytes automated count (number/volume) 5.56 10*6/uL 4.35-5.85 Venous blood hemoglobin measurement (mass/volume) 16.3 g/dL 13.3-17.7 Blood hematocrit (volume fraction) 45 % 40-54 Automated erythrocyte mean corpuscular volume 80 [ foz_us] 80-99 Automated erythrocyte mean corpuscular h emoglobin (mass per erythrocyte) 29 pg 25-34 Automated erythrocyte mean corpuscular h emoglobin concentration measurement (mass/volume) 37 g/dL 32-36 Automated erythrocyte distribution width ratio 13. 0 % 10.0- 14.5 Automated blood platelet count (count/volume) 198 10*3/uL 130-400 Automated blood platelet mean volume measurement 9.9 [foz_us] 7.4-10.4 Automated blood neutrophils/100 leukocytes 56 % 42-75 Automated blood lymphocytes/100 leukocytes 34 % 12-44 Blood monocytes/100 leukocytes 8 % 0-12 Automated blood eosinophils/100 leukocytes 2 % 0-10 Automated blood basophils/100 leukocytes 0 % 0-10 Blood neutrophils automated count (number/volume) 4.6 10*3 1.8-7.8 Blood lymphocytes automated count (number/volume) 2.8 10*3 1.0-4.0 Blood monocytes automated count (number/volume) 0. 6 10*3 0.0-1.0 Automated eosinophil count 0.2 10*3/uL 0 .0-0.3 Automated blood basophil count (count/volume) 0.0 10*3/uL 0.0-0.1 Comprehensive metabolic panel - 01/02/19 12:41 Serum or plasma sodium measurement (moles/volume) 139 mmol/L 135-145 Serum or plasma potassium measurement (moles/volume) 4.3 mmol/L 3.6-5.0 Serum or plasma chloride measurement (moles/volume) 107 mmol/L 98-107 Carbon dioxide 21 mmol/L 21-32 Serum or plasma anion gap determination (moles/volume) 11 mmol/L 5-14 Serum or plasma urea nitrogen measurement (mass/volume ) 10 mg/dL 7-18 Serum or plasma creatinine measurement (mass/volume) 0.81 mg/dL 0.60-1.30 Serum or plasma urea nitrogen/creatinine mass ratio 12 NRG Serum or plasma creatinine measurement w ith calculation of estimated glomerular filtration rate > NRG Serum or plasma glucose measurement (mass/volume) 107 mg/dL 70-105 Serum or plasma calcium measurement (mass/volume) 9.4 mg/dL 8.5-10.1 Serum or plasma total bilirubin measurement (mass/volu me) 0.5 mg/dL 0.1-1.0 Serum or plasma alkaline phosphatase rojelio surement (enzymatic activity/volume) 50 U/L 40-136 Serum or plasma aspartate aminotransfera se measurement (enzymatic activity/volume) 29 U/L 5-34 Serum or plasma alanine aminotransferase measurement (enzymatic activity/volume) 42 U/L 0-55 Serum or plasma protein measurement (mass/volume) 7.1 g/dL 6.4-8.2 Serum or plasma albumin measurement (mass/volume) 4.3 g/dL 3.2-4.5 CALCIUM CORRECTED 9.2 mg/dL 8.5-10.1 Serum or plasma troponin i.cardiac measu rement (mass/volume) - 01/02/19 12:41 Serum or plasma troponin i.cardiac measurement (mass/v olume) < ng/mL <0.028 Comprehensive metabolic panel - 04/30/19 13:41 Serum or plasma sodium measurement (moles/volume) 140 mmol/L 135-145 Serum or plasma potassium measurement (moles/volume) 4.0 mmol/L 3.6-5.0 Serum or plasma chloride measurement (moles/volume) 105 mmol/L 98-107 Carbon dioxide 26 mmol/L 21-32 Serum or plasma anion gap determination (moles/volume) 9 mmol/L 5-14 Serum or plasma urea nitrogen measurement (mass/volume ) 10 mg/dL 7-18 Serum or plasma creatinine measurement (mass/volume) 0.86 mg/dL 0.60-1.30 Serum or plasma urea nitrogen/creatinine mass ratio 12 NRG Serum or plasma creatinine measurement w ith calculation of estimated glomerular filtration rate > NRG Serum or plasma glucose measurement (mass/volume) 122 mg/dL 70-105 Serum or plasma calcium measurement (mass/volume) 9.6 mg/dL 8.5-10.1 Serum or plasma total bilirubin measurement (mass/volu me) 0.3 mg/dL 0.1-1.0 Serum or plasma alkaline phosphatase rojelio surement (enzymatic activity/volume) 57 U/L 40-136 Serum or plasma aspartate aminotransfera se measurement (enzymatic activity/volume) 23 U/L 5-34 Serum or plasma alanine aminotransferase measurement (enzymatic activity/volume) 32 U/L 0-55 Serum or plasma protein measurement (mass/volume) 7.4 g/dL 6.4-8.2 Serum or plasma albumin measurement (mass/volume) 4.4 g/dL 3.2-4.5 CALCIUM CORRECTED 9.3 mg/dL 8.5-10.1 Magnesium - 04/30/19 13:41 Magnesium 1.9 mg/dL 1.6-2.4 PT panel in platelet poor plasma by coag ulation assay - 04/30/19 13:41 Prothrombin time (PT) in platelet poor plasma by coagu lation assay 12.6 s 12.2-14.7 INR in platelet poor plasma or blood by coagulation as say 0.9 0.8-1.4 Activated partial thromboplastin time (a PTT) in platelet poor plasma bycoagulation assay - 04/30/19 13:41 Activated partial thromboplastin time (a PTT) in platelet poor plasma bycoagulation assay 29 s 24-35 Fibrin D-dimer FEU measurement in platel et poor plasma (mass/volume) - 04/30/19 13:41 Fibrin D-dimer FEU measurement in platelet poor plasma (mass/volume) <= ug/mL 0.00-0.49 Serum or plasma troponin i.cardiac measu rement (mass/volume) - 04/30/19 13:41 Serum or plasma troponin i.cardiac measurement (mass/v olume) < ng/mL <0.028 Myoglobin, serum - 04/30/19 13:41 Myoglobin, serum 45.6 ng/mL 10.0-92.0 Complete blood count (CBC) with automate d white blood cell (WBC) differential - 04/30/19 13:41 Blood leukocytes automated count (number/volume) 9.1 10*3/uL 4.3-11.0 Blood erythrocytes automated count (number/volume) 5.50 10*6/uL 4.35-5.85 Venous blood hemoglobin measurement (mass/volume) 16.3 g/dL 13.3-17.7 Blood hematocrit (volume fraction) 45 % 40-54 Automated erythrocyte mean corpuscular volume 81 [ foz_us] 80-99 Automated erythrocyte mean corpuscular h emoglobin (mass per erythrocyte) 30 pg 25-34 Automated erythrocyte mean corpuscular h emoglobin concentration measurement (mass/volume) 37 g/dL 32-36 Automated erythrocyte distribution width ratio 12. 6 % 10.0- 14.5 Automated blood platelet count (count/volume) 215 10*3/uL 130-400 Automated blood platelet mean volume measurement 9.9 [foz_us] 7.4-10.4 Automated blood neutrophils/100 leukocytes 60 % 42-75 Automated blood lymphocytes/100 leukocytes 30 % 12-44 Blood monocytes/100 leukocytes 7 % 0-12 Automated blood eosinophils/100 leukocytes 2 % 0-10 Automated blood basophils/100 leukocytes 0 % 0-10 Blood neutrophils automated count (number/volume) 5.5 10*3 1.8-7.8 Blood lymphocytes automated count (number/volume) 2.8 10*3 1.0-4.0 Blood monocytes automated count (number/volume) 0. 6 10*3 0.0-1.0 Automated eosinophil count 0.2 10*3/uL 0 .0-0.3 Automated blood basophil count (count/volume) 0.0 10*3/uL 0.0-0.1 Blood blood smear finding identification by light micr oscopy YES NRG Serum or plasma troponin i.cardiac measu rement (mass/volume) - 04/30/19 15:43 Serum or plasma troponin i.cardiac measurement (mass/v olume) < ng/mL <0.028 Complete blood count (CBC) with automate d white blood cell (WBC) differential - 05/24/19 19:37 Blood leukocytes automated count (number/volume) 9.0 10*3/uL 4.3-11.0 Blood erythrocytes automated count (number/volume) 5.34 10*6/uL 4.35-5.85 Venous blood hemoglobin measurement (mass/volume) 15.7 g/dL 13.3-17.7 Blood hematocrit (volume fraction) 43 % 40-54 Automated erythrocyte mean corpuscular volume 81 [ foz_us] 80-99 Automated erythrocyte mean corpuscular h emoglobin (mass per erythrocyte) 29 pg 25-34 Automated erythrocyte mean corpuscular h emoglobin concentration measurement (mass/volume) 36 g/dL 32-36 Automated erythrocyte distribution width ratio 12. 2 % 10.0- 14.5 Automated blood platelet count (count/volume) 201 10*3/uL 130-400 Automated blood platelet mean volume measurement 9.8 [foz_us] 7.4-10.4 Automated blood neutrophils/100 leukocytes 57 % 42-75 Automated blood lymphocytes/100 leukocytes 34 % 12-44 Blood monocytes/100 leukocytes 7 % 0-12 Automated blood eosinophils/100 leukocytes 2 % 0-10 Automated blood basophils/100 leukocytes 0 % 0-10 Blood neutrophils automated count (number/volume) 5.2 10*3 1.8-7.8 Blood lymphocytes automated count (number/volume) 3.0 10*3 1.0-4.0 Blood monocytes automated count (number/volume) 0. 6 10*3 0.0-1.0 Automated eosinophil count 0.1 10*3/uL 0 .0-0.3 Automated blood basophil count (count/volume) 0.0 10*3/uL 0.0-0.1 Comprehensive metabolic panel - 05/24/19 19:37 Serum or plasma sodium measurement (moles/volume) 138 mmol/L 135-145 Serum or plasma potassium measurement (moles/volume) 3.9 mmol/L 3.6-5.0 Serum or plasma chloride measurement (moles/volume) 104 mmol/L 98-107 Carbon dioxide 25 mmol/L 21-32 Serum or plasma anion gap determination (moles/volume) 9 mmol/L 5-14 Serum or plasma urea nitrogen measurement (mass/volume ) 10 mg/dL 7-18 Serum or plasma creatinine measurement (mass/volume) 0.78 mg/dL 0.60-1.30 Serum or plasma urea nitrogen/creatinine mass ratio 13 NRG Serum or plasma creatinine measurement w ith calculation of estimated glomerular filtration rate > NRG Serum or plasma glucose measurement (mass/volume) 113 mg/dL 70-105 Serum or plasma calcium measurement (mass/volume) 9.2 mg/dL 8.5-10.1 Serum or plasma total bilirubin measurement (mass/volu me) 0.3 mg/dL 0.1-1.0 Serum or plasma alkaline phosphatase rojelio surement (enzymatic activity/volume) 61 U/L 40-136 Serum or plasma aspartate aminotransfera se measurement (enzymatic activity/volume) 21 U/L 5-34 Serum or plasma alanine aminotransferase measurement (enzymatic activity/volume) 21 U/L 0-55 Serum or plasma protein measurement (mass/volume) 7.0 g/dL 6.4-8.2 Serum or plasma albumin measurement (mass/volume) 4.4 g/dL 3.2-4.5 CALCIUM CORRECTED 8.9 mg/dL 8.5-10.1 Serum or plasma troponin i.cardiac measu rement (mass/volume) - 05/24/19 19:37 Serum or plasma troponin i.cardiac measurement (mass/v olume) < ng/mL <0.30 Fibrin D-dimer FEU measurement in platel et poor plasma (mass/volume) - 05/24/19 19:51 Fibrin D-dimer FEU measurement in platelet poor plasma (mass/volume) 0.24 ug/mL 0.00-0.49 Complete blood count (CBC) with automate d white blood cell (WBC) differential - 07/12/19 16:30 Blood leukocytes automated count (number/volume) 12.1 10*3/uL 4.3-11.0 Blood erythrocytes automated count (number/volume) 5.77 10*6/uL 4.35-5.85 Venous blood hemoglobin measurement (mass/volume) 17.2 g/dL 13.3-17.7 Blood hematocrit (volume fraction) 48 % 40-54 Automated erythrocyte mean corpuscular volume 83 [ foz_us] 80-99 Automated erythrocyte mean corpuscular h emoglobin (mass per erythrocyte) 30 pg 25-34 Automated erythrocyte mean corpuscular h emoglobin concentration measurement (mass/volume) 36 g/dL 32-36 Automated erythrocyte distribution width ratio 12. 4 % 10.0- 14.5 Automated blood platelet count (count/volume) 232 10*3/uL 130-400 Automated blood platelet mean volume measurement 9.8 [foz_us] 7.4-10.4 Automated blood neutrophils/100 leukocytes 69 % 42-75 Automated blood lymphocytes/100 leukocytes 23 % 12-44 Blood monocytes/100 leukocytes 6 % 0-12 Automated blood eosinophils/100 leukocytes 2 % 0-10 Automated blood basophils/100 leukocytes 0 % 0-10 Blood neutrophils automated count (number/volume) 8.4 10*3 1.8-7.8 Blood lymphocytes automated count (number/volume) 2.7 10*3 1.0-4.0 Blood monocytes automated count (number/volume) 0. 8 10*3 0.0-1.0 Automated eosinophil count 0.2 10*3/uL 0 .0-0.3 Automated blood basophil count (count/volume) 0.0 10*3/uL 0.0-0.1 PT panel in platelet poor plasma by coag ulation assay - 07/12/19 16:30 Prothrombin time (PT) in platelet poor plasma by coagu lation assay 12.7 s 12.2-14.7 INR in platelet poor plasma or blood by coagulation as say 0.9 0.8-1.4 Comprehensive metabolic panel - 07/12/19 16:30 Serum or plasma sodium measurement (moles/volume) 138 mmol/L 135-145 Serum or plasma potassium measurement (moles/volume) 3.9 mmol/L 3.6-5.0 Serum or plasma chloride measurement (moles/volume) 100 mmol/L 98-107 Carbon dioxide 23 mmol/L 21-32 Serum or plasma anion gap determination (moles/volume) 15 mmol/L 5-14 Serum or plasma urea nitrogen measurement (mass/volume ) 9 mg/dL 7-18 Serum or plasma creatinine measurement (mass/volume) 0.78 mg/dL 0.60-1.30 Serum or plasma urea nitrogen/creatinine mass ratio 12 NRG Serum or plasma creatinine measurement w ith calculation of estimated glomerular filtration rate > NRG Serum or plasma glucose measurement (mass/volume) 107 mg/dL 70-105 Serum or plasma calcium measurement (mass/volume) 9.7 mg/dL 8.5-10.1 Serum or plasma total bilirubin measurement (mass/volu me) 0.5 mg/dL 0.1-1.0 Serum or plasma alkaline phosphatase rojelio surement (enzymatic activity/volume) 73 U/L 40-136 Serum or plasma aspartate aminotransfera se measurement (enzymatic activity/volume) 26 U/L 5-34 Serum or plasma alanine aminotransferase measurement (enzymatic activity/volume) 33 U/L 0-55 Serum or plasma protein measurement (mass/volume) 8.0 g/dL 6.4-8.2 Serum or plasma albumin measurement (mass/volume) 4.6 g/dL 3.2-4.5 TROPONIN I FS - 07/12/19 16:30 TROPONIN I FS < 0.30 <0.30 Complete blood count (CBC) with automate d white blood cell (WBC) differential - 08/16/19 18:15 Blood leukocytes automated count (number/volume) 9.9 10*3/uL 4.3-11.0 Blood erythrocytes automated count (number/volume) 5.27 10*6/uL 4.35-5.85 Venous blood hemoglobin measurement (mass/volume) 15.3 g/dL 13.3-17.7 Blood hematocrit (volume fraction) 44 % 40-54 Automated erythrocyte mean corpuscular volume 83 [ foz_us] 80-99 Automated erythrocyte mean corpuscular h emoglobin (mass per erythrocyte) 29 pg 25-34 Automated erythrocyte mean corpuscular h emoglobin concentration measurement (mass/volume) 35 g/dL 32-36 Automated erythrocyte distribution width ratio 12. 4 % 10.0- 14.5 Automated blood platelet count (count/volume) 198 10*3/uL 130-400 Automated blood platelet mean volume measurement 9.7 [foz_us] 7.4-10.4 Automated blood neutrophils/100 leukocytes 66 % 42-75 Automated blood lymphocytes/100 leukocytes 26 % 12-44 Blood monocytes/100 leukocytes 6 % 0-12 Automated blood eosinophils/100 leukocytes 2 % 0-10 Automated blood basophils/100 leukocytes 0 % 0-10 Blood neutrophils automated count (number/volume) 6.6 10*3 1.8-7.8 Blood lymphocytes automated count (number/volume) 2.5 10*3 1.0-4.0 Blood monocytes automated count (number/volume) 0. 6 10*3 0.0-1.0 Automated eosinophil count 0.2 10*3/uL 0 .0-0.3 Automated blood basophil count (count/volume) 0.0 10*3/uL 0.0-0.1 PT panel in platelet poor plasma by coag ulation assay - 08/16/19 18:15 Prothrombin time (PT) in platelet poor plasma by coagu lation assay 12.9 s 12.2-14.7 INR in platelet poor plasma or blood by coagulation as say 0.9 0.8-1.4 Activated partial thromboplastin time (a PTT) in platelet poor plasma bycoagulation assay - 08/16/19 18:15 Activated partial thromboplastin time (a PTT) in platelet poor plasma bycoagulation assay 28 s 24-35 Comprehensive metabolic panel - 08/16/19 18:15 Serum or plasma sodium measurement (moles/volume) 138 mmol/L 135-145 Serum or plasma potassium measurement (moles/volume) 3.9 mmol/L 3.6-5.0 Serum or plasma chloride measurement (moles/volume) 103 mmol/L 98-107 Carbon dioxide 23 mmol/L 21-32 Serum or plasma anion gap determination (moles/volume) 12 mmol/L 5-14 Serum or plasma urea nitrogen measurement (mass/volume ) 12 mg/dL 7-18 Serum or plasma creatinine measurement (mass/volume) 0.81 mg/dL 0.60-1.30 Serum or plasma urea nitrogen/creatinine mass ratio 15 NRG Serum or plasma creatinine measurement w ith calculation of estimated glomerular filtration rate > NRG Serum or plasma glucose measurement (mass/volume) 117 mg/dL 70-105 Serum or plasma calcium measurement (mass/volume) 9.0 mg/dL 8.5-10.1 Serum or plasma total bilirubin measurement (mass/volu me) 0.5 mg/dL 0.1-1.0 Serum or plasma alkaline phosphatase rojelio surement (enzymatic activity/volume) 61 U/L 40-136 Serum or plasma aspartate aminotransfera se measurement (enzymatic activity/volume) 26 U/L 5-34 Serum or plasma alanine aminotransferase measurement (enzymatic activity/volume) 23 U/L 0-55 Serum or plasma protein measurement (mass/volume) 7.0 g/dL 6.4-8.2 Serum or plasma albumin measurement (mass/volume) 4.3 g/dL 3.2-4.5 CALCIUM CORRECTED 8.8 mg/dL 8.5-10.1 TROPONIN I FS - 08/16/19 18:15 TROPONIN I FS < 0.30 <0.30 PROBNP FS - 08/16/19 18:15 PROBNP FS 56.6 pg/mL <75.0 Complete blood count (CBC) with automate d white blood cell (WBC) differential - 11/17/19 16:37 Blood leukocytes automated count (number/volume) 9.0 10*3/uL 4.3-11.0 Blood erythrocytes automated count (number/volume) 5.90 10*6/uL 4.35-5.85 Venous blood hemoglobin measurement (mass/volume) 17.4 g/dL 13.3-17.7 Blood hematocrit (volume fraction) 47 % 40-54 Automated erythrocyte mean corpuscular volume 80 [ foz_us] 80-99 Automated erythrocyte mean corpuscular h emoglobin (mass per erythrocyte) 29 pg 25-34 Automated erythrocyte mean corpuscular h emoglobin concentration measurement (mass/volume) 37 g/dL 32-36 Automated erythrocyte distribution width ratio 13. 2 % 10.0- 14.5 Automated blood platelet count (count/volume) 233 10*3/uL 130-400 Automated blood platelet mean volume measurement 9.9 [foz_us] 7.4-10.4 Automated blood neutrophils/100 leukocytes 62 % 42-75 Automated blood lymphocytes/100 leukocytes 29 % 12-44 Blood monocytes/100 leukocytes 7 % 0-12 Automated blood eosinophils/100 leukocytes 2 % 0-10 Automated blood basophils/100 leukocytes 0 % 0-10 Blood neutrophils automated count (number/volume) 5.6 10*3 1.8-7.8 Blood lymphocytes automated count (number/volume) 2.6 10*3 1.0-4.0 Blood monocytes automated count (number/volume) 0. 7 10*3 0.0-1.0 Automated eosinophil count 0.1 10*3/uL 0 .0-0.3 Automated blood basophil count (count/volume) 0.0 10*3/uL 0.0-0.1 Comprehensive metabolic panel - 11/17/19 16:37 Serum or plasma sodium measurement (moles/volume) 137 mmol/L 135-145 Serum or plasma potassium measurement (moles/volume) 3.9 mmol/L 3.6-5.0 Serum or plasma chloride measurement (moles/volume) 105 mmol/L 98-107 Carbon dioxide 22 mmol/L 21-32 Serum or plasma anion gap determination (moles/volume) 10 mmol/L 5-14 Serum or plasma urea nitrogen measurement (mass/volume ) 10 mg/dL 7-18 Serum or plasma creatinine measurement (mass/volume) 0.89 mg/dL 0.60-1.30 Serum or plasma urea nitrogen/creatinine mass ratio 11 NRG Serum or plasma creatinine measurement w ith calculation of estimated glomerular filtration rate > NRG Serum or plasma glucose measurement (mass/volume) 103 mg/dL 70-105 Serum or plasma calcium measurement (mass/volume) 9.3 mg/dL 8.5-10.1 Serum or plasma total bilirubin measurement (mass/volu me) 0.5 mg/dL 0.1-1.0 Serum or plasma alkaline phosphatase rojelio surement (enzymatic activity/volume) 60 U/L 40-136 Serum or plasma aspartate aminotransfera se measurement (enzymatic activity/volume) 23 U/L 5-34 Serum or plasma alanine aminotransferase measurement (enzymatic activity/volume) 22 U/L 0-55 Serum or plasma protein measurement (mass/volume) 7.4 g/dL 6.4-8.2 Serum or plasma albumin measurement (mass/volume) 4.6 g/dL 3.2-4.5 Magnesium - 11/17/19 16:37 Magnesium 1.8 mg/dL 1.6-2.4 Myoglobin, serum - 11/17/19 16:37 Myoglobin, serum 55.9 ng/mL 10.0-92.0 PT panel in platelet poor plasma by coag ulation assay - 11/17/19 16:37 Prothrombin time (PT) in platelet poor plasma by coagu lation assay 14.4 s 12.2-14.7 INR in platelet poor plasma or blood by coagulation as say 1.1 0.8-1.4 Activated partial thromboplastin time (a PTT) in platelet poor plasma bycoagulation assay - 11/17/19 16:37 Activated partial thromboplastin time (a PTT) in platelet poor plasma bycoagulation assay 28 s 24-35 Fibrin D-dimer FEU measurement in platel et poor plasma (mass/volume) - 11/17/19 16:37 Fibrin D-dimer FEU measurement in platelet poor plasma (mass/volume) 0.30 ug/mL 0.00-0.49 Lipase - 11/17/19 16:37 Lipase 19 U/L 8-78 Serum or plasma troponin i.cardiac measu rement (mass/volume) - 11/17/19 16:37 Serum or plasma troponin i.cardiac measurement (mass/v olume) 0.047 ng/mL <0.028 Serum or plasma lithium measurement (mol es/volume) - 11/17/19 16:37 BNP PT 66.0 pg/mL <100.0 Complete urinalysis with reflex to cultu re - 11/17/19 18:05 Urine color determination YELLOW NRG Urine clarity determination CLEAR NR G Urine pH measurement by test strip 8.5 5-9 Specific gravity of urine by test strip 1.010 1.016-1.022 Urine protein assay by test strip, semi-quantitative NEGATIVE NEGATIVE Urine glucose detection by automated test strip NE GATIVE NEGATIVE Erythrocytes detection in urine sediment by light micr oscopy NEGATIVE NEGATIVE Urine ketones detection by automated test strip NE GATIVE NEGATIVE Urine nitrite detection by test strip NEGATIVE NEGATIVE Urine total bilirubin detection by test strip NEGA TIVE NEGATIVE Urine urobilinogen measurement by automated test strip (mass/volume) 0.2 mg/dL < = 1.0 Urine leukocyte esterase detection by dipstick NEG ATIVE NEGATIVE Automated urine sediment erythrocyte cou nt by microscopy (number/high power field) NONE NRG Automated urine sediment leukocyte count by microscopy (number/high power field) NONE NRG Bacteria detection in urine sediment by light microsco py NEGATIVE NRG Squamous epithelial cells detection in u rine sediment by light microscopy RARE NRG Crystals detection in urine sediment by light microsco py NONE NRG Casts detection in urine sediment by light microscopy NONE NRG Mucus detection in urine sediment by light microscopy NEGATIVE NRG Complete urinalysis with reflex to culture NO NRG Urine drug screening test - 11/17/19 18: 05 Urine phencyclidine detection by screening method NEGATIVE NEGATIVE Urine benzodiazepines detection by screening method NEGATIVE NEGATIVE Urine cocaine detection NEGATIVE NEGATI VE Urine amphetamines detection by screening method N EGATIVE NEGATIVE Urine methamphetamine detection by screening method NEGATIVE NEGATIVE Urine cannabinoids detection by screening method P OSITIVE NEGATIVE Urine opiates detection by screening method POSITI VE NEGATIVE Urine barbiturates detection NEGATIVE N EGATIVE Screening urine tricyclic antidepressants detection NEGATIVE NEGATIVE Urine methadone detection by screening method NEGA TIVE NEGATIVE Urine oxycodone detection NEGATIVE NEGA TIVE Urine propoxyphene detection NEGATIVE N EGATIVE Serum or plasma troponin i.cardiac measu rement (mass/volume) - 11/17/19 19:58 Serum or plasma troponin i.cardiac measurement (mass/v olume) 0.040 ng/mL <0.028 Encounters ACCT No. Visit Date/Time Discharge Status Pt. Type Provider Facility Loc./Unit Complaint [id number] 10/22/2019 13:00:00 10/22/2019 23:59:5 9 CLS Outpatient YESSENIA HARDING [facility] [id number] 11/20/2018 13:15:00 Document Registration [id number] 08/16/2019 17:37:00 19:43:00 DIS Emergency DANISH PARKER MD [facility] ER FS NECK/SHOULDER PAIN [id number] 07/12/2019 16:25:00 019 20:01:00 DIS Emergency HINA JORGE MD [facility] ER FS JAW PAIN [id number] 05/24/2019 19:18:00 21:52:00 DIS Emergency HINA JORGE MD [facility] ER FS CHEST PAIN [id number] 04/30/2019 13:21:00 17:20:00 DIS Emergency MIKEL CASTLE MD [facility] ER CHEST PAIN [id number] 01/06/2019 15:30:00 23:59:59 CLS Preadmit Yessi MEDEROS MD [facility] CARD PALPITATION [id number] 10/31/2018 12:17:00 00:01:00 DIS Outpatient Yessi MEDEROS MD [facility] CARD PALPITATION [id number] 01/02/2019 12:28:00 14:05:00 DIS Emergency KERVIN MUNOZ MD [facility] ER FELT "POP" IN CHEST [id number] 01/02/2019 08:22:00 10:23:00 DIS Outpatient Yessi MEDEROS MD [facility] CATH PALPITATIONS,PSVT [id number] 01/01/2019 07:28:00 12:00:00 DIS Emergency KERVIN MUNOZ MD [facility] ER LT SHOULDER INJ [id number] 11/06/2018 05:23:00 06:35:00 DIS Emergency SANDRITA BULTER MD [facility] ER FS MIGRAINE [id number] 10/06/2018 18:02:00 14:19:00 DIS Inpatient SADIE BADILLO FACC, SHEFALI MOSES CCD S [facility] ICU SVT,CHEST PAIN [id number] 11/09/2017 10:00:00 23:59:59 CLS Preadmit Yessi MEDEROS MD [facility] CARD CARDIAC MURMUR [id number] 06/22/2017 13:00:00 23:59:59 CLS Preadmit GATITO BADILLO, Yessi BURTON [facility] CARD AORTIC STENOSIS,CARDIAC MURMUR,OBESITY,TOBACCO USE [id number] 10/19/2016 10:02:00 017 23:59:59 CLS Outpatient MAGUI URIBE MD [facility] CARD HEART MURMUR,AORTIC [id number] 11/17/2019 21:10:[address] Inpatient ANTONI BADILLO, MAJOR Portillo [facility] ICU CHEST PAIN,INTERMITTENT JUNC TIONAL RHYTHM,AORTIC A
[2019-11-18 01:00] VITALS: BP 136/68
[2019-11-18 02:00] VITALS: BP 112/61
--- OUTSIDE RECORDS SUMMARY | 2019-11-18 03:07 | XMS REPORT | Encounter Summary ---
Author Author [facility] Organization [facility] Address Unknown Phone Unavailable Care Team Providers Care Merchandise Support Associate Name Role Phone Reji Jacob PCP Encounter Details Care Team Description Date Type Department Encounter for consultation 10/24/2019 Imaging [facility] Virtual Revenu e Appointment Location Social History [...] 10/24/2019 Encounte r for PACS 8:00 AM VEGETABLE II FARMWORKER consultation documented in this encounter Results * CT Outside images for PACS (10/24/2019 8:00 AM VEGETABLE II FARMWORKER) Specimen Performing Organization Address City/State/Zipcode Ph one Number [place] documented in this encounter Visit Diagnoses Diagnosis Encounter for consultation documented in this encounter
--- OUTSIDE RECORDS SUMMARY | 2019-11-18 03:07 | XMS REPORT | Encounter Summary ---
Author Author [facility] Organization [facility] Address Unknown Phone Unavailable Care Team Providers Care Filtration Operator Name Role Phone Reji Jacob PCP Encounter Details Care Team Description Date Type Department Encounter for consultation 10/24/2019 Imaging [facility] Virtual Revenu e Appointment Location Social [...] 10/24/2019 Encounte r for PACS 8:15 AM BOTTOM SANDER consultation documented in this encounter Results * CT Outside images for PACS (10/24/2019 8:15 AM BOTTOM SANDER) Specimen Performing Organization Address City/State/Zipcode Ph one Number [place] documented in this encounter Visit Diagnoses Diagnosis Encounter for consultation documented in this encounter
--- OUTSIDE RECORDS SUMMARY | 2019-11-18 03:07 | XMS REPORT | Encounter Summary ---
Author Author [facility] Organization [facility] Address Unknown Phone Unavailable Care Team Providers Care Elocution Teacher Name Role Phone Reji Jacob PCP Encounter Details Care Team Description Date Type Department Encounter for consultation 10/24/2019 Imaging [facility] Virtual Revenu e Appointment Location Social [...] 10/24/2019 Encounte r for PACS 8:03 AM SHED BOSS consultation documented in this encounter Results * CT Outside images for PACS (10/24/2019 8:03 AM SHED BOSS) Specimen Performing Organization Address City/State/Zipcode Ph one Number [place] documented in this encounter Visit Diagnoses Diagnosis Encounter for consultation documented in this encounter
--- OUTSIDE RECORDS SUMMARY | 2019-11-18 03:07 | XMS REPORT | Encounter Summary ---
Author Author [facility] Organization [facility] Address Unknown Phone Unavailable Care Team Providers Care Work Ticket Distributor Name Role Phone Reji Jacob PCP Encounter Details Care Team Description Date Type Department Encounter for consultation 10/24/2019 Imaging [facility] Virtual Revenu e Appointment Location Social [...] 10/24/2019 Encounte r for PACS 8:03 AM NUCLEAR LICENSING ENGINEER consultation documented in this encounter Results * CT Outside images for PACS (10/24/2019 8:03 AM NUCLEAR LICENSING ENGINEER) Specimen Performing Organization Address City/State/Zipcode Ph one Number [place] documented in this encounter Visit Diagnoses Diagnosis Encounter for consultation documented in this encounter
--- OUTSIDE RECORDS SUMMARY | 2019-11-18 03:07 | XMS REPORT | Clinical Summary ---
Author Author [facility] Organization [facility] Address Unknown Phone Unavailable Care Team Providers Care Operator Command Support Systems Name Role Phone Reji Jacob PCP Allergies [...] Korin Rehman RN 2019 Telephone Cardiology Tone Mednia MD 09/02/2019 Documentation Cardiology Savita Reyna, RN [...] Comments Vital Sign 124/9 08/29/2019 8:48 AM ELECTRIC RAZOR ASSEMBLER Blood Pressure 80 08/29/2019 8:48 AM ELECTRIC RAZOR ASSEMBLER Pulse - - Temperature - - Respiratory Rate 96% 08/29/2019 8:48 AM ELECTRIC RAZOR ASSEMBLER Oxygen Saturation - - Inhaled Oxygen Concentration 140.6 kg (310 lb) 08/29/2019 8:48 AM ELECTRIC RAZOR ASSEMBLER Weight 180.3 cm (5' 11") 08/29/2019 8:48 AM ELECTRIC RAZOR ASSEMBLER Height 43.24 08/29/2019 8:48 AM ELECTRIC RAZOR ASSEMBLER Body Mass Index Plan of Treatment Health [...] 10/24/2019 Encounte r for PACS 8:15 AM ELECTRIC RAZOR ASSEMBLER consultation US OUTSIDE IMAGES FOR Routine 10/24/2019 Encounte r for PACS 8:04 AM ELECTRIC RAZOR ASSEMBLER consultation CT OUTSIDE IMAGES FOR Routine 10/24/2019 Encounte r for PACS 8:03 AM ELECTRIC RAZOR ASSEMBLER consultation CT OUTSIDE IMAGES FOR Routine 10/24/2019 Encounte r for PACS 8:03 AM ELECTRIC RAZOR ASSEMBLER consultation CT OUTSIDE IMAGES FOR Routine 10/24/2019 Encounte r for PACS 8:02 AM ELECTRIC RAZOR ASSEMBLER consultation CT OUTSIDE IMAGES FOR Routine 10/24/2019 Encounte r for PACS 8:02 AM ELECTRIC RAZOR ASSEMBLER consultation US OUTSIDE IMAGES FOR Routine 10/24/2019 Encounte r for PACS 8:01 AM ELECTRIC RAZOR ASSEMBLER consultation IR OUTSIDE IMAGES FOR Routine 10/24/2019 Encounte r for PACS 8:01 AM ELECTRIC RAZOR ASSEMBLER consultation CT OUTSIDE IMAGES FOR Routine 10/24/2019 Encounte r for PACS 8:00 AM ELECTRIC RAZOR ASSEMBLER consultation CT OUTSIDE IMAGES FOR Routine 10/24/2019 Encounte r for PACS 8:00 AM ELECTRIC RAZOR ASSEMBLER consultation CT OUTSIDE IMAGES FOR Routine 10/24/2019 Encounte r for PACS 7:59 AM ELECTRIC RAZOR ASSEMBLER consultation US OUTSIDE IMAGES FOR Routine 10/22/2019 Encounte r for PACS 3:24 PM ELECTRIC RAZOR ASSEMBLER consultation IR OUTSIDE IMAGES FOR Routine 10/22/2019 Encounte r for PACS 3:23 PM ELECTRIC RAZOR ASSEMBLER consultation CT OUTSIDE IMAGES FOR Routine 10/22/2019 Encounte r for PACS 3:22 PM ELECTRIC RAZOR ASSEMBLER consultation US OUTSIDE IMAGES FOR Routine 10/22/2019 Encounte r for PACS 3:21 PM ELECTRIC RAZOR ASSEMBLER consultation IR OUTSIDE IMAGES FOR Routine 10/22/2019 Encounte r for PACS 3:21 PM ELECTRIC RAZOR ASSEMBLER consultation from Last 3 Months Results * CT Outside images for PACS (10/24/2019 8:15 AM ELECTRIC RAZOR ASSEMBLER) Only the most recent of 9 results within the time period is included. Specimen Performing Organization Address City/State/Zipcode Ph one Number [place] * [place] Outside images for PACS (10/24/2019 8:04 AM ELECTRIC RAZOR ASSEMBLER) Only the most recent of 4 results within the time period is included. Specimen Performing Organization Address City/State/[facility] Ph one Maral [place] * IR Outside images for PACS (10/24/2019 8:01 AM ELECTRIC RAZOR ASSEMBLER) Only the most recent of 3 results within the time period is included. Specimen Performing Organization Address City/State/Zipcode Ph one Maral [place] from Last 3 Months Insurance Type Payer Benefit Subscriber ID Effective Phone Address Plan / Dates Group [facility] OUT OF xxxxxxxxxxxx 19 20- AREA Present TRADITIONA L Advance Directives For more information, please contact: [phone] Patient Liquor Department Manager Explanation Type Date Recorded Health Care Directive
--- OUTSIDE RECORDS SUMMARY | 2019-11-18 03:07 | XMS REPORT | Encounter Summary ---
Author Author [facility] Organization [facility] Address Unknown Phone Unavailable Care Team Providers Care Contract Designer Name Role Phone Reji Jacob PCP Encounter Details Care Team Description Date Type Department Encounter for consultation 10/24/2019 Imaging [facility] Virtual Revenu e Appointment Location Social [...] 10/24/2019 Encounte r for PACS 8:04 AM STAMPING DIE MAKER consultation documented in this encounter Results * [place] Outside images for PACS (10/24/2019 8:04 AM STAMPING DIE MAKER) Specimen Performing Organization Address City/State/Zipcode Ph one Number [place] documented in this encounter Visit Diagnoses Diagnosis Encounter for consultation documented in this encounter
--- OUTSIDE RECORDS SUMMARY | 2019-11-18 03:07 | XMS REPORT | Encounter Summary ---
Author Author [facility] Organization [facility] Address Unknown Phone Unavailable Care Team Providers Care Principal Technical Writer Name Role Phone Reji Jacob PCP Encounter Details Care Team Description Date Type Department Encounter for consultation 10/24/2019 Imaging [facility] Virtual Revenu e Appointment Location Social [...] 10/24/2019 Encounte r for PACS 8:00 AM MATERIAL CONTROL SUPERVISOR consultation documented in this encounter Results * CT Outside images for PACS (10/24/2019 8:00 AM MATERIAL CONTROL SUPERVISOR) Specimen Performing Organization Address City/State/Zipcode Ph one Number [place] documented in this encounter Visit Diagnoses Diagnosis Encounter for consultation documented in this encounter
--- OUTSIDE RECORDS SUMMARY | 2019-11-18 03:07 | XMS REPORT | Encounter Summary ---
Author Author [facility] Organization [facility] Address Unknown Phone Unavailable Care Team Providers Care Wardrobe Mistress Name Role Phone Reji Jacob PCP Encounter Details Care Team Description Date Type Department Encounter for consultation 10/24/2019 Imaging [facility] Virtual Revenu e Appointment Location [...] 10/24/2019 Encounte r for PACS 8:01 AM SUPERVISOR VARNISH consultation documented in this encounter Results * IR Outside images for PACS (10/24/2019 8:01 AM SUPERVISOR VARNISH) Specimen Performing Organization Address City/State/Zipcode Ph one Number [place] documented in this encounter Visit Diagnoses Diagnosis Encounter for consultation documented in this encounter
--- OUTSIDE RECORDS SUMMARY | 2019-11-18 03:07 | XMS REPORT | Encounter Summary ---
Author Author [facility] Organization [facility] Address Unknown Phone Unavailable Care Team Providers Care Audio Visual Engineer Name Role Phone Reji Jacob PCP Encounter Details Care Team Description Date Type Department Encounter for consultation 10/24/2019 Imaging [facility] Virtual Revenu e Appointment Location [...] 10/24/2019 Encounte r for PACS 8:01 AM BLOOD BANK WORKER consultation documented in this encounter Results * [place] Outside images for PACS (10/24/2019 8:01 AM BLOOD BANK WORKER) Specimen Performing Organization Address City/State/Zipcode Ph one Number [place] documented in this encounter Visit Diagnoses Diagnosis Encounter for consultation documented in this encounter
--- OUTSIDE RECORDS SUMMARY | 2019-11-18 03:07 | XMS REPORT | Encounter Summary ---
Author Author [facility] Organization [facility] Address Unknown Phone Unavailable Care Team Providers Care River Driver Name Role Phone Reji Jacob PCP Encounter Details Care Team Description Date Type Department Encounter for consultation 10/22/2019 Imaging [facility] Virtual Revenu e Appointment Location Social [...] 10/22/2019 Encounte r for PACS 3:24 PM WHITE SUGAR SYRUP OPERATOR consultation documented in this encounter Results * [place] Outside images for PACS (10/22/2019 3:24 PM WHITE SUGAR SYRUP OPERATOR) Specimen Performing Organization Address City/State/Zipcode Ph one Number [place] documented in this encounter Visit Diagnoses Diagnosis Encounter for consultation documented in this encounter
--- OUTSIDE RECORDS SUMMARY | 2019-11-18 03:07 | XMS REPORT | Encounter Summary ---
Author Author [facility] Organization [facility] Address Unknown Phone Unavailable Care Team Providers Care Certified Master Safe Technician Name Role Phone Reji Jacob PCP Encounter Details Care Team Description Date Type Department Encounter for consultation 10/24/2019 Imaging [facility] Virtual Revenu e Appointment Location [...] 10/24/2019 Encounte r for PACS 8:02 AM RESTORATIVE REHAB AIDE consultation documented in this encounter Results * CT Outside images for PACS (10/24/2019 8:02 AM RESTORATIVE REHAB AIDE) Specimen Performing Organization Address City/State/Zipcode Ph one Number [place] documented in this encounter Visit Diagnoses Diagnosis Encounter for consultation documented in this encounter
--- OUTSIDE RECORDS SUMMARY | 2019-11-18 03:07 | XMS REPORT | Encounter Summary ---
Author Author [facility] Organization [facility] Address Unknown Phone Unavailable Care Team Providers Care Content Designer Name Role Phone Reji Jacob PCP Encounter Details Care Team Description Date Type Department Encounter for consultation 10/24/2019 Imaging [facility] Virtual Revenu e Appointment Location [...] 10/24/2019 Encounte r for PACS 7:59 AM ASSISTED LIVING MANAGER consultation documented in this encounter Results * CT Outside images for PACS (10/24/2019 7:59 AM ASSISTED LIVING MANAGER) Specimen Performing Organization Address City/State/Zipcode Ph one Number [place] documented in this encounter Visit Diagnoses Diagnosis Encounter for consultation documented in this encounter
--- OUTSIDE RECORDS SUMMARY | 2019-11-18 03:07 | XMS REPORT | Encounter Summary ---
Author Author [facility] Organization [facility] Address Unknown Phone Unavailable Care Team Providers Care Director River Restoration Name Role Phone Reji Jacob PCP Encounter [...] 10/24/2019 Encounte r for PACS 8:02 AM PRODUCTION PACKAGER consultation documented in this encounter Results * CT Outside images for PACS (10/24/2019 8:02 AM PRODUCTION PACKAGER) Specimen Performing Organization Address City/State/Zipcode Ph one Number [place] documented in this encounter Visit Diagnoses Diagnosis Encounter for consultation documented in this encounter
--- OUTSIDE RECORDS SUMMARY | 2019-11-18 03:07 | XMS REPORT | Encounter Summary ---
Author Author [facility] Organization [facility] Address Unknown Phone Unavailable Care Team Providers Care Pug Mill Operator Helper Name Role Phone Reji Jacob PCP Encounter Details Care Team Description Date Type Department Encounter for consultation 10/22/2019 Imaging [facility] Virtual Revenu e Appointment Location [...] 10/22/2019 Encounte r for PACS 3:23 PM CLAMSHELL ENGINEER consultation documented in this encounter Results * IR Outside images for PACS (10/22/2019 3:23 PM CLAMSHELL ENGINEER) Specimen Performing Organization Address City/State/Zipcode Ph one Number [place] documented in this encounter Visit Diagnoses Diagnosis Encounter for consultation documented in this encounter
--- OUTSIDE RECORDS SUMMARY | 2019-11-18 03:08 | XMS REPORT | Encounter Summary ---
Author Author [facility] Organization [facility] Address Unknown Phone Unavailable Care Team Providers Care Works Manager Name Role Phone Reji Jacob PCP Encounter Details Care Team Description Date Type Department Encounter for consultation 10/22/2019 Imaging [facility] Virtual Revenu e [...] 10/22/2019 Encounte r for PACS 3:22 PM RIDE OPERATOR consultation documented in this encounter Results * CT Outside images for PACS (10/22/2019 3:22 PM RIDE OPERATOR) Specimen Performing Organization Address City/State/Zipcode Ph one Number [place] documented in this encounter Visit Diagnoses Diagnosis Encounter for consultation documented in this encounter
--- OUTSIDE RECORDS SUMMARY | 2019-11-18 03:08 | XMS REPORT | Encounter Summary ---
Author Author [facility] Organization [facility] Address Unknown Phone Unavailable Care Team Providers Care General Assignment Reporter Name Role Phone Cecil Reji PCP Reason for Referral * Surgical (Routine) Referred By Contact Referred To Contact Status Reason Specialty Diagnoses / Procedures Tone Medina MD [address] [address] [place] [address] Reuben Li MD [address] [place] [address] Authorized Specialty Services Cardiothoracic Diagnoses Required Surgery Ascending aorta dilatation (HCC) Aortic stenosis due to bicuspid aortic valve * MRI/CAT/PET Scan (Routine) Referred By Contact Referred To Contact Status Reason Specialty Diagnoses / Procedures Tone Medina MD [address] [facility] [address] [place] [address] [facility] [address] [place] [id number] Closed Cardiology Diagnoses Ascending aorta dilatation (HCC) Aortic stenosis due to bicuspid aortic valve P rocedures CV CT Heart gated study Reason for Visit * Reason Comments Correspondence Encounter Details Care Team Description Date Type Department Savita Reyna, RODNEY Correspondence 08/29/2019 Telephone [facility] [address] [facility] [address] [place] [address] Social History Date Tobacco Use Types Packs/Day [...] Miscellaneous Notes * Telephone Encounter - Tone Medina MD - 09/19/2019 12:03 AM MVA STILL OPERATOR This is definitely not in media STILL OPERATOR * Telephone Encounter - Rosales Moore RN - 09/18/2019 2:36 PM MVA STILL OPERATOR Spoke with Sindy with chart analysts. SVT ablation is available in care everywher e under documents from [employer]. Date is 10/04/18, type is clinical document only an d provider is Cecilio Verdugo. Routing. STILL OPERATOR * Addendum Note - Rosales Moore RN - 09/17/2019 4:00 PM MVA STILL OPERATOR Addended by: ROSALES MOORE on: 09/17/2019 04:00 PM Modules accepted: Orders, SmartSet STILL OPERATOR * Telephone Encounter - Rosales Moore RN - 09/17/2019 3:39 PM MVA STILL OPERATOR Received call from patient wanting to schedule with Dr. Li. Discussed thi s is with [facility] and provided him number of their office, that they are separate of fice. Placed on hold and discussed with Dr. Guillermo Larson's MA. She never re ceived referral, note this was not entered. Apologized for this, she asked it b e faxed to [phone] attention to her. She states she can offer him 10/23 or 10/27. Transferred call. Referral placed and faxed with confirmation fax receiv ed. STILL OPERATOR * Telephone Encounter - Pauly Beal LPN - 09/17/2019 2:11 PM MVA STILL OPERATOR Received call from patient stating he had SVT ablation done in 10/[address] Verdugo at [facility] in [place]. I stated I will be routing a message to art marketing campaign analyst to request records. He v/u. ARoss STILL OPERATOR * Telephone Encounter - Savita Reyna RN - 09/05/2019 3:29 PM MVA STILL OPERATOR 10/06/19 THIRD attempt to reach to ask if he was able to find out where this docto r was STILL OPERATOR * Telephone Encounter - Savita Reyna RN - 09/04/2019 11:42 AM MVA STILL OPERATOR 09/04/19 SECOND attempt to reach, he stated that he would have to call Dr Barber ( ?SP) the EP at [facility] in [place] to get name and location of where he had it done and will call us back. STILL OPERATOR * Telephone Encounter - Rosales Moore RN - 09/02/2019 11:26 AM MVA STILL OPERATOR Spoke with Sindy. She received correspondence from [facility] in [place] rubi t they do not have patient in their record. Note in care everywhere just see th at he had SVT ablation done in [place]. Will call patient to see where had ab lation at and then send back to Sindy to request. Made call to patient and left b [facility] message to return call. STILL OPERATOR * Addendum Note - Korin Farnsworth RN - 09/01/2019 11:15 AM MVA STILL OPERATOR Addended by: KORIN FARNSWORTH on: 09/01/2019 11:15 AM Modules accepted: Orders, SmartSet STILL OPERATOR * Telephone Encounter - Korin Farnsworth RN - 09/01/2019 9:10 AM MVA STILL OPERATOR Called Dr. Glen Li's office ph # [phone]. Dr. Li's nurse will be contacting pt to set up appointment for after 08-17-19. She will be back on . They will access pt's outside records through [employer]. No need to fax. CV CT heart gated ordered. LMTCB with pt for more info about VT ablation records. Routed to [facility] to obtain VT ablation records from [facility] in [place], [place]. STILL OPERATOR * Telephone Encounter - Savita Reyna RN - 08/29/2019 4:42 PM MVA STILL OPERATOR ----- Message from Tone Medina MD sent at 08/29/2019 9:22 AM MVA STILL OPERATOR ----- I just saw him in [place] - he needs to see Dr Glen iL for possible AVR/asc ending aortic repair. He needs to be seen on or after 10/18/19 because that is w hen he gets insurance. Please also get a CT to assess ascending aneurysm size o n the same day (CV CT gated heart with contrast) in the nuclear lab. Also we ne ed to get his VT ablation records from [place] (please contact him to get release ) and get it to me for review. I will have echo CDs that need to be loaded for me and Dr Li to review as well - will give to you on Sunday. Thx. STILL OPERATOR documented in this encounter Plan of Treatment [...]
--- OUTSIDE RECORDS SUMMARY | 2019-11-18 03:08 | XMS REPORT | Encounter Summary ---
Author Author [facility] Organization [facility] Address Unknown Phone Unavailable Care Team Providers Care Elementary Art Teacher Name Role Phone PCP Unavailable Encounter Details Care Team Description Date Type Department Sindy John RN 08/26/2019 Abstract [facility] [address] [place] [address] Social History Date Tobacco Use Types Packs/Day [...] car otid artery stenosis. Antegrade vertebral flow. ([facility]) * CV US Lower Extremity Arterial Duplex Outside Record (07/17/2019) Impressions Performed At Right: No evidence of active arterial bleed, or obstruction in common femoral artery. No evidence of deep shane ous thrombosis in the common femoral vein. ([facility]) * Coronary Angiogram Outside Record (07/10/2019) Impressions [...] hypertension. See report abo ve for details. ([facility]) * Basic Metabolic Panel (07/10/2019) [facility] Signature Calcium 9.7 8.7 - [...] n ow estimated to be 5.0 cm. [facility]) * XR Outside Record (07/31/2018) Impressions Performed At Negative for acute infiltrate. ([facility]) * CT Outside Record (05/22/2018) Impressions Performed At 1. 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 No other aneurysm. No dissection or atheromatous disease. 2. Small calcifications of the aortic valve. 3. Otherwise, normal study. ([facility]) * Coronary Angiogram Outside Record (05/21/2018) Impressions [...] discussed above. 4. See report for details. ([facility]) * Echo Outside Record (05/21/2018) Ejection Fraction [...] aorta about 44 mm in diameter . ([facility]) documented in this encounter Visit Diagnoses Diagnosis SVT (supraventricular tachycardia) (HCC ) Other specified cardiac dysrhythmias Morbid obesity (HCC) Morbid obesity Bicuspid aortic valve Congenital insufficiency of aortic valv e Ascending aorta dilatation (HCC) Thoracic aneurysm without mention of ru pture Anxiety Anxiety state, unspecified documented in this encounter
--- OUTSIDE RECORDS SUMMARY | 2019-11-18 03:08 | XMS REPORT | Encounter Summary ---
Author Author [facility] Organization [facility] Address Unknown Phone Unavailable Care Team Providers Care Inspector Exhaust Emissions Name Role Phone Reji Jacob PCP Reason for Visit * Reason Comments Aortic stenosis Encounter Details Care Team Description Date Type Department Tone Medina MD [address] [facility] [address] [place] [address] [phone] Anxiety (Primary Dx); Ascending aorta dilatation (HCC); Aortic stenosis due to bicuspid aortic valve; Morbid obesity (HCC); VT (ventricular tachycardia) (HCC); Hypersomnolence; Cigarette nicotine dependence without complication 08/25/2019 Initial consult [facility] [address] [place] [address] [address] [place] [address] Social History Date Tobacco Use Types Packs/Day [...] Comments Vital Sign 124/9 08/29/2019 8:48 AM ACCOUNT INFORMATION CLERK Blood Pressure 80 08/29/2019 8:48 AM ACCOUNT INFORMATION CLERK Pulse - - Temperature - - Respiratory Rate 96% 08/29/2019 8:48 AM ACCOUNT INFORMATION CLERK Oxygen Saturation - - Inhaled Oxygen Concentration 140.6 kg (310 lb) 08/29/2019 8:48 AM ACCOUNT INFORMATION CLERK Weight 180.3 cm (5' 11") 08/29/2019 8:48 AM ACCOUNT INFORMATION CLERK Height 43.24 08/29/2019 8:48 AM ACCOUNT INFORMATION CLERK Body Mass Index documented in this encounter Progress Notes * Tone Medina MD - 08/29/2019 8:00 AM ACCOUNT INFORMATION CLERK [facility] Appointment Date: 08/29/2019 Reji Jacob MD [address] [place] [phone] RE: Carlos Parrish : 1985 Visit provider: [...] pleasure of meeting him today in the [place] heart failure outreach clinic. His history dates back to 2017, when he presented with ventricular tachycardia w ith a heart rate of 260. He was cardioverted. This was in May 2018. In July 2018, he had another episode of ventricular tachycardia requiring defib rillation. Interestingly, a defibrillator was never offered and he was told by Dr. Barber that he had to go to [facility] in [facility] for ablation. This happened in October 2018. He had a loop monitor placed by Dr. Mesa in [place], [place] subsequently. He has had episodes almost [...] List Diagnosis SNOMED CT(R) VT (ventricular tachycardia) ([facility]) VENTRICULAR TACHYCARDIA Morbid obesity (HCC) MORBID OBESITY Aortic stenosis due to bicuspid aortic valve CONGENITAL STENOSIS OF AORTIC V ALVE Ascending aorta dilatation (HCC) ASCENDING AORTA DILATATION Anxiety ANXIETY Hypersomnolence HYPERSOMNIA Cigarette nicotine dependence without complication NICOTINE DEPENDENCE Past Medical History: Diagnosis Date Anxiety Aortic stenosis due to bicuspid aortic valve Mean AoV gradient 45 07/22 Ascending aorta dilatation ([facility]) 06/2019 5.0 cm ascending aorta; 3.5 cm at sinuses of Valsalva Depression Morbid obesity ([facility]) VT (ventricular tachycardia) ([facility]) 05/2018 with aberrancy Past Surgical History: Procedure Laterality Date CARDIAC CATHETERIZATION 05/21/2018 normal cors. dilated ascending aorta (47 mm in diameter) CARDIAC CATHETERIZATION 07/10/2019 Performed in [place]. Normal coronaries. ELECTROPHYSIOLOGY STUDY WITH POSSIBLE RFA OF VT 10/2018 Performed at [place] IMPLANTABLE LOOP RECORDER PLACEMENT Performed in [place], [place] RIGHT HEART CATHETERIZATION 07/10/2019 Performed in [place]. RA 14 RV 37/14 PA 39/13/28 PCWP [...] undergo a split night sleep study in [place] as soon as possible. I told parvin [...] I need to get some records from [place] to see what type of ventricular tachycardia he had. If he just had RV outflow tract tachycardia, ablation should be curati ve and no further action will need to be taken, but I would like to review the r ecords and make more recommendations at that time. I may ask for an electrophys iology opinion from one of my colleagues at [facility] to see what their tho ughts are. [...] so he does not run up his [facility] bills any more. I have not set [...] Medina MD /mimi cc: Traci Li MD UNT INFORMATION CLERK documented in this encounter Plan of Treatment [...]
--- OUTSIDE RECORDS SUMMARY | 2019-11-18 03:08 | XMS REPORT | Encounter Summary ---
Author Author [facility] Organization [facility] Address Unknown Phone Unavailable Care Team Providers Care Meteorology Professor Name Role Phone Reji Jacob PCP Encounter Details Care Team Description Date Type Department Encounter for consultation 10/22/[address] [facility] Virtual Revenu e Appointment Location [...] 10/22/2019 Encounte r for PACS 3:21 PM NURSE CLINICAL consultation documented in this encounter Results * US Outside images for PACS (10/22/2019 3:21 PM NURSE CLINICAL) Specimen Performing Organization Address City/State/Zipcode Ph one Number [email or web address] documented in this encounter Visit Diagnoses Diagnosis Encounter for consultation documented in this encounter
--- OUTSIDE RECORDS SUMMARY | 2019-11-18 03:08 | XMS REPORT | Encounter Summary ---
Author Author [facility] Organization [facility] Address Unknown Phone Unavailable Care Team Providers Care Agent Contract Clerk Name Role Phone Reji Jacob PCP Reason for Visit * Reason Comments Correspondence Encounter Details Care Team Description Date Type Department Joe Harris RN Correspondence 10/22/2019 Telephone [facility] [address] [facility] [address] [place] [address] Social History Date Tobacco Use Types Packs/Day [...] Savita Reyna RN - 10/23/2019 9:32 AM EXPORT FREIGHT SPECIALIST 10/23 call to [facility], spoke with Marsha and she stated that patient was still there and she would speak with Dr Li and call back, Informed her that I left a message for Jazz Becerril about it being approved. RT FREIGHT SPECIALIST * Telephone Encounter - Savita Reyna RN - 10/23/2019 9:28 AM EXPORT FREIGHT SPECIALIST 10/23 message left for Jazz Becerril multimedia services manager for CV imaging scheduling to see if melissa ey have reached out to patient RT FREIGHT SPECIALIST * Telephone Encounter - Korin Rehman RN - 10/22/2019 4:04 PM EXPORT FREIGHT SPECIALIST Zain to patient. Explained that pt will need to have a gated CV CT tomorrow. Pt gave the following info about his insurance. [employer] # [id number] [facility] Provider services Emailed info to CV Imaging and [employer] so that the CT can be preauthed. Instructed pt that he should be expecting further calls from our office so that he can be looking out for our call. VU. RT FREIGHT SPECIALIST * Telephone Encounter - Joe [place] RN - 10/22/2019 3:12 PM EXPORT FREIGHT SPECIALIST Attempted call to patient again, no answer, VM full. RT FREIGHT SPECIALIST * Telephone Encounter - Joe Harris RN - 10/22/2019 2:44 PM EXPORT FREIGHT SPECIALIST Received VM from patient stating he was returning call and to call back. Remy figueroa call to patient, no answer and VM full. Spoke with Marsha. She reports he d oes have Tereza TRISTAN, she is awaiting correspondence from him with his member ID . Attempted call to patient again, no answer, VM full. RT FREIGHT SPECIALIST * Telephone Encounter - Joe [place] RN - 10/22/2019 1:40 PM EXPORT FREIGHT SPECIALIST Received call from Marsha with CTS/Dr. Li's office ([facility]) to discuss appointment scheduled tomorrow. She does not have imaging of ec ho/cath report from 2019 and CTA from 2018. She will reach out to [facility] for vy ges but may need to [...] back. Discussed with Dr. Medina. He e-mailed [facility] staff who were able to upload to [...] Made call to emergency contact listed on [facility] rt, was able to leave brief message that we are needing to reach patient today a nd for someone to call back. E-mail sent to all parties involved. Checked cloud, only see echo and cath, email sent to [facility] staff. RT FREIGHT SPECIALIST documented in this encounter Plan of Treatment Not on filedocumented as of this encounter Visit Diagnoses Not on filedocumented in this encounter
--- OUTSIDE RECORDS SUMMARY | 2019-11-18 03:08 | XMS REPORT | Encounter Summary ---
Author Author [facility] Organization [facility] Address Unknown Phone Unavailable Care Team Providers Care Termite Control Technician Name Role Phone PCP Unavailable Encounter Details Care Team Description Date Type Department Tone Medina MD [address] [place], [place] [id number] 08/27/2019 Orders Only [facility] [address] [place] [address] Social History Date Tobacco Use Types Packs/Day [...]
--- OUTSIDE RECORDS SUMMARY | 2019-11-18 03:08 | XMS REPORT | Encounter Summary ---
Author Author [facility] Organization [facility] Address Unknown Phone Unavailable Care Team Providers Care Director Public Policy Name Role Phone Reji Jacob PCP Encounter Details Care Team Description Date Type Department Encounter for consultation 10/22/2019 Imaging [facility] Virtual Revenu e Appointment Location Social [...] 10/22/2019 Encounte r for PACS 3:21 PM BOX SHOOK PATCHER consultation documented in this encounter Results * IR Outside images for PACS (10/22/2019 3:21 PM BOX SHOOK PATCHER) Specimen Performing Organization Address City/State/Zipcode Ph one Number [email or web address] documented in this encounter Visit Diagnoses Diagnosis Encounter for consultation documented in this encounter
--- OUTSIDE RECORDS SUMMARY | 2019-11-18 03:08 | XMS REPORT | Encounter Summary ---
Author Author [facility] Organization [facility] Address Unknown Phone Unavailable Care Team Providers Care Intern Retail Name Role Phone PCP Unavailable Encounter Details Care Team Description Date Type Department Tone Medina MD [address] [place], [place] [id number] 08/19/2019 Documentation [facility] [address] [place] [address] Social History Date Tobacco Use Types Packs/Day [...]
--- OUTSIDE RECORDS SUMMARY | 2019-11-18 03:08 | XMS REPORT | Encounter Summary ---
Author Author [facility] Organization [facility] Address Unknown Phone Unavailable Care Team Providers Care Warehouse Packaging Supervisor Name Role Phone Reji Jacob PCP Encounter Details Care Team Description Date Type Department Korin Rehman RN 2019 Telephone [facility] [address] [facility] [address] [place] [address] Social History Date Tobacco Use Types Packs/Day [...] Korin Rehman RN - 2019 8:26 AM V BELT SKIVER Received a VM regarding an upcoming CTS appointment he has scheduled. He wanted to find out the name of the provider. LMTCB V BELT SKIVER documented in this encounter Plan of Treatment Not on filedocumented as of this encounter Visit Diagnoses Not on filedocumented in this encounter
--- OUTSIDE RECORDS SUMMARY | 2019-11-18 03:08 | XMS REPORT | Encounter Summary ---
Author Author [facility] Organization [facility] Address Unknown Phone Unavailable Care Team Providers Care Heel Compressor Name Role Phone Reji Jacob PCP Encounter Details Care Team Description Date Type Department Tone Medina MD [address] [place] [address] [phone] 09/02/2019 Documentation [facility] [address] [place] [address] Social History Date Tobacco Use Types Packs/Day [...]
--- OUTSIDE RECORDS SUMMARY | 2019-11-18 03:11 | XMS REPORT | Continuity of Care Document ---
Author Organization Unknown Address Unknown Phone Unavailable Allergies Active Description Code Type Severity Reaction Onset Reported/Identified Relationship to Patient Clinical Status Yes No Known Drug Allergies [id number] Drug Allergy Mild N/A 01/01/2019 Medications There [...] PALPITATIONS 01/02/2019 Yessi MEDEROS MD Ot Z79.82 JAIL (CURRENT) USE OF ASPIRIN 01/02/2019 Yessi MEDEROS MD, Ot Z79.899 OTHER WIRE WRAPPER MACHINE OPERATOR (CURRENT) DRUG THERAPY 01/02/2019 KERVIN MUNOZ MD [...] 01/06/2019 GATITO BADILLO, Yessi BURTON Ot Z79.82 WIRE WRAPPER MACHINE OPERATOR (CURRENT) USE OF ASPIRIN 01/06/2019 GATITO BADILLO, Yessi BURTON Ot Z79.899 OTHER WIRE WRAPPER MACHINE OPERATOR (CURRENT) DRUG THERAPY 04/30/2019 MIKEL CASTLE MD [...] i.cardiac measurement (mass/v olume) 0.040 ng/mL <0.028 Serum or plasma troponin i.cardiac measu rement (mass/volume) - 11/18/19 00:07 Serum or plasma troponin i.cardiac measurement (mass/v olume) 0.040 ng/mL <0.028 Encounters ACCT No. Visit Date/Time Discharge Status Pt. Type Provider Facility Loc./Unit Complaint [id number] 10/22/2019 13:00:00 10/22/2019 23:59:5 9 [facility] Outpatient YESSENIA HARDING [facility] [id number] 11/20/2018 13:15:00 Document Registration [id number] 08/16/2019 17:37:00 019 19:43:00 DIS Emergency KEITH BADILLO, ADNISH Singh [facility] ER FS NECK/SHOULDER PAIN [id number] 07/12/2019 16:25:00 20:01:00 DIS Emergency HINA JORGE MD [facility] ER FS JAW PAIN [id number] 05/24/2019 19:18:00 21:52:00 DIS Emergency HINA JORGE MD Via [facility] ER FS CHEST PAIN [id number] 04/30/2019 13:21:00 17:20:00 DIS Emergency MIKEL CASTLE MD [facility] ER CHEST PAIN [id number] 01/06/2019 15:30:00 23:59:59 CLS Preadmit Yessi MEDEROS MD [facility] CARD PALPITATION [id number] 10/31/2018 12:17:00 00:01:00 DIS Outpatient Yessi MEDEROS MD [facility] CARD PALPITATION [id number] 01/02/2019 12:28:00 14:05:00 DIS Emergency KERVIN MUNOZ MD [facility] ER FELT "POP" IN CHEST [id number] 01/02/2019 08:22:00 10:23:00 DIS Outpatient Yessi MEDEROS MD [facility] CATH PALPITATIONS,PSVT [id number] 01/01/2019 07:28:00 12:00:00 DIS Emergency KERVIN MUNOZ MD [facility] ER LT SHOULDER INJ [id number] 11/06/2018 05:23:00 06:35:00 DIS Emergency SANDRITA BUTLER MD [facility] ER FS MIGRAINE [id number] 10/06/2018 18:02:00 14:19:00 DIS Inpatient SADIE BADILLO FACC, SHEFALI MOSES CCD S [facility] ICU SVT,CHEST PAIN [id number] 11/09/2017 10:00:00 23:59:59 CLS Preadmit GATITO BADILLO, Yessi BURTON [facility] CARD CARDIAC MURMUR [id number] 06/22/2017 13:00:00 017 23:59:59 CLS Preadmit GATITO BADILLO, Yessi BURTON [facility] CARD AORTIC STENOSIS,CARDIAC MURMUR,OBESITY,TOBACCO USE [id number] 10/19/2016 10:02:00 017 23:59:59 CLS Outpatient RONY BADILLO, MAGUI Bueno [facility] CARD HEART MURMUR,AORTIC [id number] 11/17/2019 21:10:[address] Inpatient ANTONI BADILLO, MAJOR Portillo [facility] ICU CHEST PAIN,INTERMITTENT JUNC TIONAL RHYTHM,AORTIC A
[2019-11-18 04:00] VITALS: BP 127/70
[2019-11-18 04:19] LABS: BASOPHILS % (AUTO) 0 % (0-10); EOSINOPHILS # (AUTO) 0.2 10^3/uL (0.0-0.3); EOSINOPHILS % (AUTO) 2 % (0-10); HEMATOCRIT 44 % (40-54); HEMOGLOBIN 15.4 G/DL (13.3-17.7); LYMPHOCYTES # (AUTO) 3.3 X 10^3 (1.0-4.0); LYMPHOCYTES % (AUTO) 33 % (12-44); MEAN CORPUSCULAR HEMOGLOBIN 29 PG (25-34); MEAN CORPUSCULAR HGB CONC 35 G/DL (32-36); MEAN CORPUSCULAR VOLUME 82 FL (80-99); MEAN PLATELET VOLUME 9.9 FL (7.4-10.4); MONOCYTES # (AUTO) 0.7 X 10^3 (0.0-1.0); MONOCYTES % (AUTO) 7 % (0-12); NEUTROPHILS # (AUTO) 5.7 X 10^3 (1.8-7.8); NEUTROPHILS % (AUTO) 57 % (42-75); PLATELET COUNT 202 10^3/uL (130-400); RED CELL DISTRIBUTION WIDTH 13.2 % (10.0-14.5); WHITE BLOOD COUNT 9.9 10^3/uL (4.3-11.0)
[2019-11-18 04:47] LABS: ALANINE AMINOTRANSFERASE 23 U/L (0-55); ALBUMIN 4.1 GM/DL (3.2-4.5); ALKALINE PHOSPHATASE 51 U/L (40-136); BILIRUBIN,TOTAL 0.4 MG/DL (0.1-1.0); BUN/CREATININE RATIO 12; CALCIUM 8.6 MG/DL (8.5-10.1); CARBON DIOXIDE 24 MMOL/L (21-32); CHLORIDE 104 MMOL/L (98-107); CHOLESTEROL 181 MG/DL (< 200); CREATININE SERUM 0.93 MG/DL (0.60-1.30); GFR ESTIMATED > 60; GLUCOSE 79 MG/DL (70-105); HDL CHOLESTEROL 29 MG/DL (40-60); POTASSIUM 3.7 MMOL/L (3.6-5.0); SODIUM 139 MMOL/L (135-145); TOTAL PROTEIN 6.6 GM/DL (6.4-8.2); TRIGLYCERIDES 191 MG/DL (<150); VLDL CHOLESTEROL 38 MG/DL (5-40)
[2019-11-18 05:00] VITALS: BP 125/74
[2019-11-18] MEDS ORDERED: CATHETER FLUSH 10 ML SYR IV SCH (06:00)
[2019-11-18 08:00] VITALS: BP 104/65
[2019-11-18] MEDS ORDERED: ASPIRIN E.C. 81 MG (ECOTRIN) TAB PO SCH (09:00)
== END 2019-11-18 10:15 | disposition left against medical advice (07) ==
LOC: EDUNIT# 16:26 → ER 16:28 → ICU 21:10
PROVIDERS: ADMIT Internal Medicine Cardiovascular Disease; ATTEND Internal Medicine Cardiovascular Disease
DX: R07.1 Chest pain on breathing (principal); Q23.1 Congenital insufficiency of aortic valve; I48.91 Unspecified atrial fibrillation; K21.9 Gastro-esophageal reflux disease without esophagitis; E78.00 Pure hypercholesterolemia, unspecified; G43.909 Migraine, unspecified, not intractable, without status migrainosus; M54.9 Dorsalgia, unspecified; G89.29 Other chronic pain; F17.210 Nicotine dependence, cigarettes, uncomplicated; I71.2 Thoracic aortic aneurysm, without rupture; Z79.899 Other long term (current) drug therapy
CPT/HCPCS: 36415; 71045; 71275; 74174; 80053; 80061; 80306; 81000; 83690; 83735; 83874; 83880; 84484; 85025; 85379; 85610; 85730; 93005

== ENCOUNTER 2019-11-27 07:12 | Day surgery (SDC) | payer BC ==
[~2019-11-27] VITALS: Ht 180 cm; Wt 136.4 kg
[2019-11-27] VITALS (11 sets, daily range): BP systolic 89–126; BP diastolic 50–81
[2019-11-27] MEDS ORDERED: HEParin (CATH LAB) 2,000 ML IV ONE (07:13)
[2019-11-27] MEDS ORDERED: LIDOCAINE 1% INJ 20 ML 20 ML VIAL ONE (07:13)
[2019-11-27] MEDS ORDERED: NS IV 1000 ML 1,000 ML ONE (07:13)
--- OUTSIDE RECORDS SUMMARY | 2019-11-27 07:17 | XMS REPORT | Clinical Summary ---
Author Author [facility] Organization [facility] Address Unknown Phone Unavailable Care Team Providers Care Transportation Director Name Role Phone Reji Jacob PCP Allergies [...] Correspondence 08/29/2019 Telephone Cardiology Tone Medina MD Anxiety (Primary Dx); Ascending aorta dilatation (HCC); Aortic stenosis due to bicuspid aortic valve; Morbid obesity (HCC); VT (ventricular tachycardia) (HCC); Hypersomnolence; Cigarette nicotine dependence without complication 08/25/2019 Initial consult Cardiology from Last 3 Months Family History [...] Comments Vital Sign 124/9 08/29/2019 8:48 AM CLASSIFIED AD CLERK Blood Pressure 80 08/29/2019 8:48 AM CLASSIFIED AD CLERK Pulse - - Temperature - - Respiratory Rate 96% 08/29/2019 8:48 AM CLASSIFIED AD CLERK Oxygen Saturation - - Inhaled Oxygen Concentration 140.6 kg (310 lb) 08/29/2019 8:48 AM CLASSIFIED AD CLERK Weight 180.3 cm (5' 11") 08/29/2019 8:48 AM CLASSIFIED AD CLERK Height 43.24 08/29/2019 8:48 AM CLASSIFIED AD CLERK Body Mass Index Plan of Treatment Health [...] 10/24/2019 Encounte r for PACS 8:15 AM CLASSIFIED AD CLERK consultation US OUTSIDE IMAGES FOR Routine 10/24/2019 Encounte r for PACS 8:04 AM CLASSIFIED AD CLERK consultation CT OUTSIDE IMAGES FOR Routine 10/24/2019 Encounte r for PACS 8:03 AM CLASSIFIED AD CLERK consultation CT OUTSIDE IMAGES FOR Routine 10/24/2019 Encounte r for PACS 8:03 AM CLASSIFIED AD CLERK consultation CT OUTSIDE IMAGES FOR Routine 10/24/2019 Encounte r for PACS 8:02 AM CLASSIFIED AD CLERK consultation CT OUTSIDE IMAGES FOR Routine 10/24/2019 Encounte r for PACS 8:02 AM CLASSIFIED AD CLERK consultation US OUTSIDE IMAGES FOR Routine 10/24/2019 Encounte r for PACS 8:01 AM CLASSIFIED AD CLERK consultation IR OUTSIDE IMAGES FOR Routine 10/24/2019 Encounte r for PACS 8:01 AM CLASSIFIED AD CLERK consultation CT OUTSIDE IMAGES FOR Routine 10/24/2019 Encounte r for PACS 8:00 AM CLASSIFIED AD CLERK consultation CT OUTSIDE IMAGES FOR Routine 10/24/2019 Encounte r for PACS 8:00 AM CLASSIFIED AD CLERK consultation CT OUTSIDE IMAGES FOR Routine 10/24/2019 Encounte r for PACS 7:59 AM CLASSIFIED AD CLERK consultation US OUTSIDE IMAGES FOR Routine 10/22/2019 Encounte r for PACS 3:24 PM CLASSIFIED AD CLERK consultation IR OUTSIDE IMAGES FOR Routine 10/22/2019 Encounte r for PACS 3:23 PM CLASSIFIED AD CLERK consultation CT OUTSIDE IMAGES FOR Routine 10/22/2019 Encounte r for PACS 3:22 PM CLASSIFIED AD CLERK consultation US OUTSIDE IMAGES FOR Routine 10/22/2019 Encounte r for PACS 3:21 PM CLASSIFIED AD CLERK consultation IR OUTSIDE IMAGES FOR Routine 10/22/2019 Encounte r for PACS 3:21 PM CLASSIFIED AD CLERK consultation from Last 3 Months Results * CT Outside images for PACS (10/24/2019 8:15 AM CLASSIFIED AD CLERK) Only the most recent of 9 results within the time period is included. Specimen Performing Organization Address City/State/Zipcode Ph one Number [place] * [place] Outside images for PACS (10/24/2019 8:04 AM CLASSIFIED AD CLERK) Only the most recent of 4 results within the time period is included. Specimen Performing Organization Address City/State/Zipcode Ph one Number [place] * IR Outside images for PACS (10/24/2019 8:01 AM CLASSIFIED AD CLERK) Only the most recent of 3 results within the time period is included. Specimen Performing Organization Address City/State/Zipcode Ph one Number [place] from Last 3 Months Insurance Type Payer Benefit Subscriber ID Effective Phone Address Plan / Dates Group [facility] OUT OF xxxxxxxxxxxx 19 20- AREA Present WINIFRED Guevara Advance Directives For more information, please contact: [phone] Patient Rewind Operator Explanation Type Date Recorded Health Care Directive
--- OUTSIDE RECORDS SUMMARY | 2019-11-27 07:17 | XMS REPORT | Encounter Summary ---
Author Author [facility] Organization [facility] Address Unknown Phone Unavailable Care Team Providers Care Dumb Waiter Operator Name Role Phone Reji Jacob PCP Reason for Visit * Reason Comments Aortic stenosis Encounter Details Care Team Description Date Type Department Tone Medina MD [address] [facility] [facility] [address] [place] [address] [phone] Anxiety (Primary Dx); Ascending aorta dilatation (HCC); Aortic stenosis due to bicuspid aortic valve; Morbid obesity (HCC); VT (ventricular tachycardia) (HCC); Hypersomnolence; Cigarette nicotine dependence without complication 08/25/2019 Initial consult [facility] [address] [place] [address] [address] [place] [address] Social History Date Tobacco Use Types Packs/Day [...] Comments Vital Sign 124/9 08/29/2019 8:48 AM COUNSELING PSYCHOLOGIST Blood Pressure 80 08/29/2019 8:48 AM COUNSELING PSYCHOLOGIST Pulse - - Temperature - - Respiratory Rate 96% 08/29/2019 8:48 AM COUNSELING PSYCHOLOGIST Oxygen Saturation - - Inhaled Oxygen Concentration 140.6 kg (310 lb) 08/29/2019 8:48 AM COUNSELING PSYCHOLOGIST Weight 180.3 cm (5' 11") 08/29/2019 8:48 AM COUNSELING PSYCHOLOGIST Height 43.24 08/29/2019 8:48 AM COUNSELING PSYCHOLOGIST Body Mass Index documented in this encounter Progress Notes * Tone Medina MD - 08/29/2019 8:00 AM COUNSELING PSYCHOLOGIST [facility] Appointment Date: 08/29/2019 Reji Jacob MD [address] [place] [phone] RE: Carlos Parrihs : 1985 Visit provider: Tone Medina MD [...] pleasure of meeting him today in the [place] heart failure outreach clinic. His history dates back to 2017, when he presented with ventricular tachycardia w ith a heart rate of 260. He was cardioverted. This was in May 2018. In July 2018, he had another episode of ventricular tachycardia requiring defib rillation. Interestingly, a defibrillator was never offered and he was told by Dr. Barber that he had to go to [facility] for ablation. This happened in October 2018. He had a loop monitor placed by Dr. Mesa in [place], [place] subsequently. He has had episodes almost [...] SNOMED CT(R) VT (ventricular tachycardia) ([facility]) VENTRICULAR TACHYCARDIA Morbid obesity (HCC) MORBID OBESITY Aortic stenosis due to bicuspid aortic valve CONGENITAL STENOSIS OF AORTIC V ALVE Ascending aorta dilatation (HCC) ASCENDING AORTA DILATATION Anxiety ANXIETY Hypersomnolence HYPERSOMNIA Cigarette nicotine dependence without complication NICOTINE DEPENDENCE Past Medical History: Diagnosis Date Anxiety Aortic stenosis due to bicuspid aortic valve Mean AoV gradient 45 07/22 Ascending aorta dilatation ([facility]) 06/2019 5.0 cm ascending aorta; 3.5 cm at sinuses of Valsalva Depression Morbid obesity ([facility]) VT (ventricular tachycardia) ([facility]) 05/2018 with aberrancy Past Surgical History: Procedure Laterality Date CARDIAC CATHETERIZATION 05/21/2018 normal cors. dilated ascending aorta (47 mm in diameter) CARDIAC CATHETERIZATION 07/10/2019 Performed in [place]. Normal coronaries. ELECTROPHYSIOLOGY STUDY WITH POSSIBLE RFA OF VT 10/2018 Performed at [place] IMPLANTABLE LOOP RECORDER PLACEMENT Performed in [place], [place] RIGHT HEART CATHETERIZATION 07/10/2019 Performed in [place]. RA 14 RV 37/14 [place] 39/13/28 PCWP [...] undergo a split night sleep study in [place] as soon as possible. I told parvin [...] I need to get some records from [place] to see what type of ventricular tachycardia [...] so he does not run up his [facility] bills any more. I have not set [...] Medina MD /mimi cc: Traci Li MD SELING PSYCHOLOGIST documented in this encounter Plan of Treatment [...]
--- OUTSIDE RECORDS SUMMARY | 2019-11-27 07:17 | XMS REPORT | Encounter Summary ---
Author Author [facility] Organization [facility] Address Unknown Phone Unavailable Care Team Providers Care Director Of The Biophysics Facility Name Role Phone Reji Jacob PCP Encounter Details Care Team Description Date Type Department Encounter for consultation 10/24/2019 Imaging [facility] Virtual Revenu e Appointment Location [...] 10/24/2019 Encounte r for PACS 8:03 AM COMMUNICATIONS LEAD consultation documented in this encounter Results * CT Outside images for PACS (10/24/2019 8:03 AM COMMUNICATIONS LEAD) Specimen Performing Organization Address City/State/Zipcode Ph one Number [place] documented in this encounter Visit Diagnoses Diagnosis Encounter for consultation documented in this encounter
--- OUTSIDE RECORDS SUMMARY | 2019-11-27 07:17 | XMS REPORT | Encounter Summary ---
Author Author [facility] Organization [facility] Address Unknown Phone Unavailable Care Team Providers Care Congressional Assistant Name Role Phone Reji Jacob PCP Encounter Details Care Team Description Date Type Department Encounter for consultation 10/24/2019 Imaging [facility] Virtual Revenu e Appointment Location Social [...] 10/24/2019 Encounte r for PACS 8:02 AM ADMISSIONS RN consultation documented in this encounter Results * CT Outside images for PACS (10/24/2019 8:02 AM ADMISSIONS RN) Specimen Performing Organization Address City/State/Zipcode Ph one Number [place] documented in this encounter Visit Diagnoses Diagnosis Encounter for consultation documented in this encounter
--- OUTSIDE RECORDS SUMMARY | 2019-11-27 07:17 | XMS REPORT | Encounter Summary ---
Author Author [facility] Organization [facility] Address Unknown Phone Unavailable Care Team Providers Care Associate Director Of Sales Name Role Phone PCP Unavailable Encounter Details Care Team Description Date Type Department Sindy John RN 08/26/2019 Abstract [facility] [address] [place] [address] Social History Date Tobacco Use Types Packs/Day [...] stenosis. Antegrade vertebral flow. ([facility]) * CV US Lower Extremity Arterial Duplex Outside Record (07/17/2019) Impressions Performed At Right: No evidence of active arterial bleed, or obstruction in common femoral artery. No evidence of deep shane ous thrombosis in the common femoral vein. ([facility]) * Coronary Angiogram Outside Record (07/10/2019) [...] abo ve for details. ([facility]) * Basic Metabolic Panel (07/10/2019) [facility] Signature Calcium 9.7 8.7 - 10.7 mg/dL [...] n ow estimated to be 5.0 cm. [facility] * XR Outside Record (07/31/2018) Impressions Performed At Negative for acute infiltrate. [facility] * CT Outside Record (05/22/2018) Impressions Performed At 1. 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 No other aneurysm. No dissection or atheromatous disease. 2. Small calcifications of the aortic valve. 3. Otherwise, normal study. ([facility]) * Coronary Angiogram Outside Record (05/21/2018) Impressions [...] discussed above. 4. See report for details. ([facility]) * Echo Outside Record (05/21/2018) Ejection Fraction [...] mm in diameter . ([facility]) documented in this encounter Visit Diagnoses Diagnosis SVT (supraventricular tachycardia) (HCC ) Other specified cardiac dysrhythmias Morbid obesity (HCC) Morbid obesity Bicuspid aortic valve Congenital insufficiency of aortic valv e Ascending aorta dilatation (HCC) Thoracic aneurysm without mention of ru pture Anxiety Anxiety state, unspecified documented in this encounter
--- OUTSIDE RECORDS SUMMARY | 2019-11-27 07:17 | XMS REPORT | Encounter Summary ---
Author Author [facility] Organization [facility] Address Unknown Phone Unavailable Care Team Providers Care Slab Installer Name Role Phone Reji Jacob PCP Encounter Details Care Team Description Date Type Department Encounter for consultation 10/22/2019 Imaging [facility] Virtual Revenu e Appointment Location [...] 10/22/2019 Encounte r for PACS 3:21 PM MEN'S GARMENT FITTER consultation documented in this encounter Results * [place] Outside images for PACS (10/22/2019 3:21 PM MEN'S GARMENT FITTER) Specimen Performing Organization Address City/State/Zipcode Ph one Number [place] documented in this encounter Visit Diagnoses Diagnosis Encounter for consultation documented in this encounter
--- OUTSIDE RECORDS SUMMARY | 2019-11-27 07:17 | XMS REPORT | Encounter Summary ---
Author Author [facility] Organization [facility] Address Unknown Phone Unavailable Care Team Providers Care Quality Control Representative Name Role Phone Reji Jacob PCP Encounter Details Care Team Description Date Type Department Encounter for consultation 10/24/2019 Imaging [facility] Virtual Revenu e Appointment Location Social History [...] 10/24/2019 Encounte r for PACS 8:02 AM ABA THERAPIST consultation documented in this encounter Results * CT Outside images for PACS (10/24/2019 8:02 AM ABA THERAPIST) Specimen Performing Organization Address City/State/Zipcode Ph one Number [place] documented in this encounter Visit Diagnoses Diagnosis Encounter for consultation documented in this encounter
--- OUTSIDE RECORDS SUMMARY | 2019-11-27 07:17 | XMS REPORT | Encounter Summary ---
Author Author [facility] Organization [facility] Address Unknown Phone Unavailable Care Team Providers Care Die Repair Machinist Name Role Phone Reji Jacob PCP Encounter Details Care Team Description Date Type Department Encounter for consultation 10/22/2019 Imaging [facility] Virtual Revenu e Appointment Location Social [...] 10/22/2019 Encounte r for PACS 3:23 PM DIRECTOR COUNCIL ON AGING consultation documented in this encounter Results * IR Outside images for PACS (10/22/2019 3:23 PM DIRECTOR COUNCIL ON AGING) Specimen Performing Organization Address City/State/Zipcode Ph one Number [place] documented in this encounter Visit Diagnoses Diagnosis Encounter for consultation documented in this encounter
--- OUTSIDE RECORDS SUMMARY | 2019-11-27 07:17 | XMS REPORT | Encounter Summary ---
Author Author [facility] Organization [facility] Address Unknown Phone Unavailable Care Team Providers Care Suction Plate Roller Hand Name Role Phone Reji Jacob PCP Encounter Details Care Team Description Date Type Department Encounter for consultation 10/24/2019 Imaging [facility] Virtual Revenu e Appointment Location [...] 10/24/2019 Encounte r for PACS 8:00 AM HEADWAITRESS consultation documented in this encounter Results * CT Outside images for PACS (10/24/2019 8:00 AM HEADWAITRESS) Specimen Performing Organization Address City/State/Zipcode Ph one Number [place] documented in this encounter Visit Diagnoses Diagnosis Encounter for consultation documented in this encounter
--- OUTSIDE RECORDS SUMMARY | 2019-11-27 07:17 | XMS REPORT | Encounter Summary ---
Author Author [facility] Organization [facility] Address Unknown Phone Unavailable Care Team Providers Care Learning Consultant Name Role Phone Reji Jacob PCP Encounter Details Care Team Description Date Type Department Encounter for consultation 10/24/2019 Imaging [facility] Virtual Revenu e Appointment Location [...] 10/24/2019 Encounte r for PACS 8:01 AM COUNTY HOME DEMONSTRATOR consultation documented in this encounter Results * [place] Outside images for PACS (10/24/2019 8:01 AM COUNTY HOME DEMONSTRATOR) Specimen Performing Organization Address City/State/Zipcode Ph one Number [place] documented in this encounter Visit Diagnoses Diagnosis Encounter for consultation documented in this encounter
--- OUTSIDE RECORDS SUMMARY | 2019-11-27 07:17 | XMS REPORT | Encounter Summary ---
Author Author [facility] Organization [facility] Address Unknown Phone Unavailable Care Team Providers Care Philosophy Faculty Member Name Role Phone Reji Jacob PCP Encounter [...] 10/24/2019 Encounte r for PACS 8:04 AM HOME HEALTH SPECIALIST consultation documented in this encounter Results * US Outside images for PACS (10/24/2019 8:04 AM HOME HEALTH SPECIALIST) Specimen Performing Organization Address City/State/Zipcode Ph one Number [place] documented in this encounter Visit Diagnoses Diagnosis Encounter for consultation documented in this encounter
--- OUTSIDE RECORDS SUMMARY | 2019-11-27 07:17 | XMS REPORT | Encounter Summary ---
Author Author [facility] Organization [facility] Address Unknown Phone Unavailable Care Team Providers Care Lining Sewer Name Role Phone Reji Jacob PCP Encounter Details Care Team Description Date Type Department Encounter for consultation 10/24/2019 Imaging [facility] Virtual Revenu e Appointment Location [...] 10/24/2019 Encounte r for PACS 8:01 AM QUARTER DOPER consultation documented in this encounter Results * IR Outside images for PACS (10/24/2019 8:01 AM QUARTER DOPER) Specimen Performing Organization Address City/State/Zipcode Ph one Number [place] documented in this encounter Visit Diagnoses Diagnosis Encounter for consultation documented in this encounter
--- OUTSIDE RECORDS SUMMARY | 2019-11-27 07:17 | XMS REPORT | Encounter Summary ---
Author Author [facility] Organization [facility] Address Unknown Phone Unavailable Care Team Providers Care Study Coordinator Name Role Phone Cecil Reji PCP Reason for Referral * Surgical (Routine) Referred By Contact Referred To Contact Status Reason Specialty Diagnoses / Procedures Tone Medina MD [address] [place] [address] Reuben Li MD [address] [place] [address] Authorized Specialty Services Cardiothoracic Diagnoses Required Surgery Ascending aorta dilatation (HCC) Aortic stenosis due to bicuspid aortic valve * MRI/CAT/PET Scan (Routine) Referred By Contact Referred To Contact Status Reason Specialty Diagnoses / Procedures Tone Medina MD [address] [facility] [address] [place] [address] [facility] [place] [address] [place] [id number] Closed Cardiology Diagnoses Ascending aorta dilatation (HCC) Aortic stenosis due to bicuspid aortic valve P rocedures CV CT Heart gated study Reason for Visit * Reason Comments Correspondence Encounter Details Care Team Description Date Type Department Savita Reyna, RODNEY Correspondence 08/29/2019 Telephone [facility] [address] [address] [place] [address] Social History Date Tobacco Use Types Packs/Day [...] Tone Medina MD - 09/19/2019 12:03 AM LOSS PREVENTION CONSULTANT This is definitely not in media PREVENTION CONSULTANT * Telephone Encounter - Rosales Moore RN - 09/18/2019 2:36 PM LOSS PREVENTION CONSULTANT Spoke with Sindy with chart analysts. SVT ablation is available in care everywher e under documents from [employer]. Date is 10/04/18, type is clinical document only an d provider is Cecilio Verdugo. Routing. PREVENTION CONSULTANT * Addendum Note - Rosales Moore RN - 09/17/2019 4:00 PM LOSS PREVENTION CONSULTANT Addended by: ROSALES MOORE on: 09/17/2019 04:00 PM Modules accepted: Orders, SmartSet PREVENTION CONSULTANT * Telephone Encounter - Rosales Moore RN - 09/17/2019 3:39 PM LOSS PREVENTION CONSULTANT Received call from patient wanting to schedule with Dr. Li. Discussed thi s is with [facility] and provided him number of their office, that they are separate of fice. Placed on hold and discussed with Dr. Guillermo Larson's MA. She never re ceived referral, note this was not entered. Apologized for this, she asked it b e faxed to [phone] attention to her. She states she can offer him 10/23 or 10/27. Transferred call. Referral placed and faxed with confirmation fax receiv ed. PREVENTION CONSULTANT * Telephone Encounter - Pauly Beal LPN - 09/17/2019 2:11 PM LOSS PREVENTION CONSULTANT Received call from patient stating he had SVT ablation done in 10/[address] Verdugo at [facility] in [place]. I stated I will be routing a message to art clinical business analyst to request records. He v/u. ARoss PREVENTION CONSULTANT * Telephone Encounter - Savita Reyna RN - 09/05/2019 3:29 PM LOSS PREVENTION CONSULTANT 10/06/19 THIRD attempt to reach to ask if he was able to find out where this docto r was PREVENTION CONSULTANT * Telephone Encounter - Savita Reyna RN - 09/04/2019 11:42 AM LOSS PREVENTION CONSULTANT 09/04/19 SECOND attempt to reach, he stated that he would have to call Dr Barber ( ?SP) the EP at [facility] in [place] to get name and location of where he had it done and will call us back. PREVENTION CONSULTANT * Telephone Encounter - Rosales Moore RN - 09/02/2019 11:26 AM LOSS PREVENTION CONSULTANT Spoke with Sindy. She received correspondence from [facility] in [place] rubi t they do not have patient in their record. Note in care everywhere just see th at he had SVT ablation done in [place]. Will call patient to see where had ab lation at and then send back to Sindy to request. Made call to patient and left b [facility] message to return call. PREVENTION CONSULTANT * Addendum Note - Korin Farnsworth RN - 09/01/2019 11:15 AM LOSS PREVENTION CONSULTANT Addended by: KORIN FARNSWORTH on: 09/01/2019 11:15 AM Modules accepted: Orders, SmartSet PREVENTION CONSULTANT * Telephone Encounter - Korin Farnsworth RN - 09/01/2019 9:10 AM LOSS PREVENTION CONSULTANT Called Dr. Glen Li's office ph # [phone]. Dr. Li's nurse will be contacting pt to set up appointment for after 08-17-19. She will be back on . They will access pt's outside records through [employer] No need to fax. CV CT heart gated ordered. LMTCB with pt for more info about [place] ablation records. [facility] to obtain [facility] ablation records from [facility] in [place], [place]. PREVENTION CONSULTANT * Telephone Encounter - Savita Reyna RN - 08/29/2019 4:42 PM LOSS PREVENTION CONSULTANT ----- Message from Tone Medina MD sent at 08/29/2019 9:22 AM LOSS PREVENTION CONSULTANT ----- I just saw him in [place] - he needs to see Dr Glen [...] to get his VT ablation records from [place] (please contact him to get release ) and get it to me for review. I will have echo CDs that need to be loaded for me and Dr Li to review as well - will give to you on Sunday. Thx. PREVENTION CONSULTANT documented in this encounter Plan of Treatment [...]
--- OUTSIDE RECORDS SUMMARY | 2019-11-27 07:17 | XMS REPORT | Encounter Summary ---
Author Author [facility] Organization [facility] Address Unknown Phone Unavailable Care Team Providers Care Loin Trimmer Name Role Phone Reji Jacob PCP Encounter Details Care Team Description Date Type Department Encounter for consultation 10/24/2019 Imaging [facility] Virtual Revenu e Appointment Location [...] 10/24/2019 Encounte r for PACS 7:59 AM BOATING SAFETY OFFICER consultation documented in this encounter Results * CT Outside images for PACS (10/24/2019 7:59 AM BOATING SAFETY OFFICER) Specimen Performing Organization Address City/State/Zipcode Ph one Number [place] documented in this encounter Visit Diagnoses Diagnosis Encounter for consultation documented in this encounter
--- OUTSIDE RECORDS SUMMARY | 2019-11-27 07:17 | XMS REPORT | Encounter Summary ---
Author Author [facility] Organization [facility] Address Unknown Phone Unavailable Care Team Providers Care Rn Relief Charge Name Role Phone Reji Jacob PCP Encounter [...] 10/22/2019 Encounte r for PACS 3:21 PM DISPATCHER CLERK consultation documented in this encounter Results * IR Outside images for PACS (10/22/2019 3:21 PM DISPATCHER CLERK) Specimen Performing Organization Address City/State/Zipcode Ph one Number [place] documented in this encounter Visit Diagnoses Diagnosis Encounter for consultation documented in this encounter
--- OUTSIDE RECORDS SUMMARY | 2019-11-27 07:17 | XMS REPORT | Encounter Summary ---
Author Author [facility] Organization [facility] Address Unknown Phone Unavailable Care Team Providers Care Rehabilitation Services Coordinator Name Role Phone Reji Jacob PCP Encounter Details Care Team Description Date Type Department Tone Medina MD [address] [place] [address] [phone] 09/02/2019 Documentation [facility] [address] [place] [address] Social History Date Tobacco Use Types Packs/Day [...]
--- OUTSIDE RECORDS SUMMARY | 2019-11-27 07:17 | XMS REPORT | Encounter Summary ---
Author Author [facility] Organization [facility] Address Unknown Phone Unavailable Care Team Providers Care Ophthalmic Dispenser Name Role Phone Reji Jacob PCP Encounter Details Care Team Description Date Type Department Encounter for consultation 10/24/2019 Imaging [facility] Virtual Revenu e Appointment Location Social [...] 10/24/2019 Encounte r for PACS 8:00 AM ROLLER consultation documented in this encounter Results * CT Outside images for PACS (10/24/2019 8:00 AM ROLLER) Specimen Performing Organization Address City/State/Zipcode Ph one Number [place] documented in this encounter Visit Diagnoses Diagnosis Encounter for consultation documented in this encounter
--- OUTSIDE RECORDS SUMMARY | 2019-11-27 07:17 | XMS REPORT | Encounter Summary ---
Author Author [facility] Organization [facility] Address Unknown Phone Unavailable Care Team Providers Care Research Program Assistant Name Role Phone PCP Unavailable Encounter Details Care Team Description Date Type Department Tone Medina MD [address] [place], [place] [id number] 08/27/2019 Orders Only [facility] [address] [place] [address] Social History Date Tobacco Use Types Packs/Day [...]
--- OUTSIDE RECORDS SUMMARY | 2019-11-27 07:17 | XMS REPORT | Encounter Summary ---
Author Author [facility] Organization [facility] Address Unknown Phone Unavailable Care Team Providers Care Net Ui Developer Name Role Phone Reji Jacob PCP Encounter Details Care Team Description Date Type Department Encounter for consultation 10/22/[address] [facility] Virtual Revenu e Appointment Location [...] 10/22/2019 Encounte r for PACS 3:22 PM COORDINATE MEASURING MACHINE TECHNICIAN consultation documented in this encounter Results * CT Outside images for PACS (10/22/2019 3:22 PM COORDINATE MEASURING MACHINE TECHNICIAN) Specimen Performing Organization Address City/State/Zipcode Ph one Number [place] documented in this encounter Visit Diagnoses Diagnosis Encounter for consultation documented in this encounter
--- OUTSIDE RECORDS SUMMARY | 2019-11-27 07:17 | XMS REPORT | Encounter Summary ---
Author Author [facility] Organization [facility] Address Unknown Phone Unavailable Care Team Providers Care Suction Worker Name Role Phone Reji Jacob PCP Encounter Details Care Team Description Date Type Department Encounter for consultation 10/24/2019 Imaging [facility] Virtual Revenu e Appointment Location [...] 10/24/2019 Encounte r for PACS 8:15 AM NETWORK INTERN consultation documented in this encounter Results * CT Outside images for PACS (10/24/2019 8:15 AM NETWORK INTERN) Specimen Performing Organization Address City/State/Zipcode Ph one Number [place] documented in this encounter Visit Diagnoses Diagnosis Encounter for consultation documented in this encounter
--- OUTSIDE RECORDS SUMMARY | 2019-11-27 07:17 | XMS REPORT | Encounter Summary ---
Author Author [facility] Organization [facility] Address Unknown Phone Unavailable Care Team Providers Care Computer Specialist Name Role Phone Reji Jacob PCP [...] 10/24/2019 Encounte r for PACS 8:03 AM STRIP CUTTER consultation documented in this encounter Results * CT Outside images for PACS (10/24/2019 8:03 AM STRIP CUTTER) Specimen Performing Organization Address City/State/Zipcode Ph one Number [place] documented in this encounter Visit Diagnoses Diagnosis Encounter for consultation documented in this encounter
--- OUTSIDE RECORDS SUMMARY | 2019-11-27 07:17 | XMS REPORT | Encounter Summary ---
Author Author [facility] Organization [facility] Address Unknown Phone Unavailable Care Team Providers Care Manager Intern Name Role Phone Reji Jacob PCP Encounter [...] 10/22/2019 Encounte r for PACS 3:24 PM SISAL PICKER consultation documented in this encounter Results * US Outside images for PACS (10/22/2019 3:24 PM SISAL PICKER) Specimen Performing Organization Address City/State/Zipcode Ph one Number [place] documented in this encounter Visit Diagnoses Diagnosis Encounter for consultation documented in this encounter
--- OUTSIDE RECORDS SUMMARY | 2019-11-27 07:17 | XMS REPORT | Encounter Summary ---
Author Author [facility] Organization [facility] Address Unknown Phone Unavailable Care Team Providers Care Clinical Systems Analyst Name Role Phone Reji Jacob PCP Reason for Visit * Reason Comments Correspondence Encounter Details Care Team Description Date Type Department Joe Harris RN Correspondence 10/22/2019 Telephone [facility] [address] [place] [address] Social History Date Tobacco Use Types Packs/Day [...] Savita Reyna RN - 10/23/2019 9:32 AM VOLUNTEER PATIENT REPRESENTATIVE 10/23 call to [facility], spoke with Marsha and she stated that patient was still there and she would speak with Dr Li and call back, Informed her that I left a message for Jazz Becerril about it being approved. NTEER PATIENT REPRESENTATIVE * Telephone Encounter - Savita Reyna RN - 10/23/2019 9:28 AM VOLUNTEER PATIENT REPRESENTATIVE 10/23 message left for Jazz Becerril accounting advisory services manager for CV imaging scheduling to see if melissa ey have reached out to patient NTEER PATIENT REPRESENTATIVE * Telephone Encounter - Korin Rehman RN - 10/22/2019 4:04 PM VOLUNTEER PATIENT REPRESENTATIVE Zain to patient. Explained that pt will need to have a gated CV CT tomorrow. Pt gave the following info about his insurance. [employer] # [id number] [facility] Emailed info to CV Imaging and [employer] so that the CT can be preauthed. Instructed pt that he should be expecting further calls from our office so that he can be looking out for our call. VU. NTEER PATIENT REPRESENTATIVE * Telephone Encounter - Joe Harris RN - 10/22/2019 3:12 PM VOLUNTEER PATIENT REPRESENTATIVE Attempted call to patient again, no answer, VM full. NTEER PATIENT REPRESENTATIVE * Telephone Encounter - Joe Harris RN - 10/22/2019 2:44 PM VOLUNTEER PATIENT REPRESENTATIVE Received VM from patient stating he was returning call and to call back. Remy figueroa call to patient, no answer and VM full. Spoke with Marsha. She reports he d oes have Tereza TRISTAN, she is awaiting correspondence from him with his member ID . Attempted call to patient again, no answer, VM full. NTEER PATIENT REPRESENTATIVE * Telephone Encounter - Joe Harris RN - 10/22/2019 1:40 PM VOLUNTEER PATIENT REPRESENTATIVE Received call from Marsha with CTS/Dr. Li's office ([facility]) to discuss appointment scheduled tomorrow. She does not have imaging of ec ho/cath report from 2019 and CTA from 2018. She will reach out to [facility] for vy ges but may need to [...] back. Discussed with Dr. Medina. He e-mailed [facility] staff who were able to upload to [...] Made call to emergency contact listed on [facility], was able to leave brief message that we are needing to reach patient today a nd for someone to call back. E-mail sent to all parties involved. Checked cloud, only see echo and cath, email sent to [facility] staff. NTEER PATIENT REPRESENTATIVE documented in this encounter Plan of Treatment Not on filedocumented as of this encounter Visit Diagnoses Not on filedocumented in this encounter
--- OUTSIDE RECORDS SUMMARY | 2019-11-27 07:17 | XMS REPORT | Encounter Summary ---
Author Author [facility] Organization [facility] Address Unknown Phone Unavailable Care Team Providers Care Hose Turner Name Role Phone Reji Jacob PCP Encounter Details Care Team Description Date Type Department Korin Rehman RN 2019 Telephone [facility] [address] [place] [address] Social History Date Tobacco Use Types Packs/Day [...] Korin Rehman RN - 2019 8:26 AM CERTIFIED [employer] Received a VM regarding an upcoming CTS appointment he has scheduled. He wanted to find out the name of the provider. LMTCB [employer]ED [employer] documented in this encounter Plan of Treatment Not on filedocumented as of this encounter Visit Diagnoses Not on filedocumented in this encounter
--- OUTSIDE RECORDS SUMMARY | 2019-11-27 07:18 | XMS REPORT | Encounter Summary ---
Author Author [facility] Organization [facility] Address Unknown Phone Unavailable Care Team Providers Care Airport Sales Agent Name Role Phone PCP Unavailable Encounter Details Care Team Description Date Type Department Tone Medina MD [address] [place], [place] [id number] 08/19/2019 Documentation [facility] [address] [place] [address] Social History Date Tobacco Use Types Packs/Day [...]
--- OUTSIDE RECORDS SUMMARY | 2019-11-27 07:20 | XMS REPORT | Continuity of Care Document ---
Author Organization Unknown Address Unknown Phone Unavailable Allergies Active Description Code Type Severity Reaction Onset Reported/Identified Relationship to Patient Clinical Status Yes No Known Drug Allergies [id number] Drug Allergy Mild N/A 01/01/2019 Medications There [...] MD Ot F12.10 CANNABIS ABUSE, UNCOMPLICATED 11/06/2018 SNADRITA BUTLER MD Ot F17.210 NICOTINE DEPENDENCE, CIGARETTES, [...] PALPITATIONS 01/02/2019 Yessi MEDEROS MD Ot Z79.82 SHELTER (CURRENT) USE OF ASPIRIN 01/02/2019 Yessi MEDEROS MD, Ot Z79.899 OTHER FULFILLMENT COORDINATOR (CURRENT) DRUG THERAPY 01/02/2019 KERVIN MUNOZ MD [...] 01/06/2019 GATITO BADILLO, Yessi BURTON Ot Z79.82 FULFILLMENT COORDINATOR (CURRENT) USE OF ASPIRIN 01/06/2019 GATITO BADILLO, Yessi BURTON Ot Z79.899 OTHER FULFILLMENT COORDINATOR (CURRENT) DRUG THERAPY 04/30/2019 MIKEL CASTLE MD [...] i.cardiac measurement (mass/v olume) 0.040 ng/mL <0.028 Complete blood count (CBC) with automate d white blood cell (WBC) differential - 11/18/19 03:09 Blood leukocytes automated count (number/volume) 9.9 10*3/uL 4.3-11.0 Blood erythrocytes automated count (number/volume) 5.34 10*6/uL 4.35-5.85 Venous blood hemoglobin measurement (mass/volume) 15.4 g/dL 13.3-17.7 Blood hematocrit (volume fraction) 44 % 40-54 Automated erythrocyte mean corpuscular volume 82 [ foz_us] 80-99 Automated erythrocyte mean corpuscular h emoglobin (mass per erythrocyte) 29 pg 25-34 Automated erythrocyte mean corpuscular h emoglobin concentration measurement (mass/volume) 35 g/dL 32-36 Automated erythrocyte distribution width ratio 13. 2 % 10.0- 14.5 Automated blood platelet count (count/volume) 202 10*3/uL 130-400 Automated blood platelet mean volume measurement 9.9 [foz_us] 7.4-10.4 Automated blood neutrophils/100 leukocytes 57 % 42-75 Automated blood lymphocytes/100 leukocytes 33 % 12-44 Blood monocytes/100 leukocytes 7 % 0-12 Automated blood eosinophils/100 leukocytes 2 % 0-10 Automated blood basophils/100 leukocytes 0 % 0-10 Blood neutrophils automated count (number/volume) 5.7 10*3 1.8-7.8 Blood lymphocytes automated count (number/volume) 3.3 10*3 1.0-4.0 Blood monocytes automated count (number/volume) 0. 7 10*3 0.0-1.0 Automated eosinophil count 0.2 10*3/uL 0 .0-0.3 Automated blood basophil count (count/volume) 0.0 10*3/uL 0.0-0.1 Comprehensive metabolic panel - 11/18/19 03:09 Serum or plasma sodium measurement (moles/volume) 139 mmol/L 135-145 Serum or plasma potassium measurement (moles/volume) 3.7 mmol/L 3.6-5.0 Serum or plasma chloride measurement (moles/volume) 104 mmol/L 98-107 Carbon dioxide 24 mmol/L 21-32 Serum or plasma anion gap determination (moles/volume) 11 mmol/L 5-14 Serum or plasma urea nitrogen measurement (mass/volume ) 11 mg/dL 7-18 Serum or plasma creatinine measurement (mass/volume) 0.93 mg/dL 0.60-1.30 Serum or plasma urea nitrogen/creatinine mass ratio 12 NRG Serum or plasma creatinine measurement w ith calculation of estimated glomerular filtration rate > NRG Serum or plasma glucose measurement (mass/volume) 79 mg/dL 70-105 Serum or plasma calcium measurement (mass/volume) 8.6 mg/dL 8.5-10.1 Serum or plasma total bilirubin measurement (mass/volu me) 0.4 mg/dL 0.1-1.0 Serum or plasma alkaline phosphatase rojelio surement (enzymatic activity/volume) 51 U/L 40-136 Serum or plasma aspartate aminotransfera se measurement (enzymatic activity/volume) 22 U/L 5-34 Serum or plasma alanine aminotransferase measurement (enzymatic activity/volume) 23 U/L 0-55 Serum or plasma protein measurement (mass/volume) 6.6 g/dL 6.4-8.2 Serum or plasma albumin measurement (mass/volume) 4.1 g/dL 3.2-4.5 CALCIUM CORRECTED 8.5 mg/dL 8.5-10.1 Lipid 1996 panel - 11/18/19 03:09 Serum or plasma triglyceride measurement (mass/volume) 191 mg/dL <150 Serum or plasma cholesterol measurement (mass/volume) 181 mg/dL < 200 Serum or plasma cholesterol in HDL measurement (mass/v olume) 29 mg/dL 40-60 Cholesterol in LDL [mass/volume] in serum or plasma by direct assay 139 mg/dL 1-129 Serum or plasma cholesterol in VLDL measurement (mass/ volume) 38 mg/dL 5-40 Encounters ACCT No. Visit Date/Time Discharge Status Pt. Type Provider Facility Loc./Unit Complaint [id number] 10/22/2019 13:00:00 10/22/2019 23:59:5 9 [facility] Outpatient MEHDIYESSENIA Arias [facility] [id number] 11/20/2018 13:15:00 Document Registration [id number] 11/17/2019 21:10:00 10:15:00 DIS Inpatient ANTONI BADILLO, MAJOR [facility] ICU CHEST PAIN,INTERMITTENT JUNCTIONAL RHYTHM,AORTIC A [id number] 08/16/2019 17:37:00 19:43:00 DIS Emergency DANISH PARKER MD [facility] ER FS NECK/SHOULDER PAIN [id number] 07/12/2019 16:25:00 20:01:00 DIS Emergency HINA JORGE MD [facility] ER FS JAW PAIN [id number] 05/24/2019 19:18:00 21:52:00 DIS Emergency HINA JORGE MD [facility] ER FS CHEST PAIN [id number] 04/30/2019 13:21:00 019 17:20:00 DIS Emergency MIKEL CASTLE MD [facility] ER CHEST PAIN [id number] 01/06/2019 15:30:00 019 23:59:59 CLS Preadmit Yessi MEDEROS MD [facility] CARD PALPITATION [id number] 10/31/2018 12:17:00 019 00:01:00 DIS Outpatient Yessi MEDEROS MD [facility] CARD PALPITATION [id number] 01/02/2019 12:28:00 14:05:00 DIS Emergency KERVIN MUNOZ MD [facility] ER FELT "POP" IN CHEST [id number] 01/02/2019 08:22:00 10:23:00 DIS Outpatient Yessi MEDEROS MD [facility] CATH PALPITATIONS,PSVT [id number] 01/01/2019 07:28:00 019 12:00:00 DIS Emergency KERVIN MUNOZ MD [facility] ER LT SHOULDER INJ [id number] 11/06/2018 05:23:00 019 06:35:00 DIS Emergency SANDRITA BUTLER MD [facility] ER FS MIGRAINE [id number] 10/06/2018 18:02:00 14:19:00 DIS Inpatient SADIE BADILLO FACC, SHEFALI FACCheyanne CCD S [facility] ICU SVT,CHEST PAIN [id number] 11/09/2017 10:00:00 018 23:59:59 CLS Preadmit Yessi MEDEROS MD [facility] CARD CARDIAC MURMUR [id number] 06/22/2017 13:00:00 017 23:59:59 CLS Preadmit Yessi EMDEROS MD [facility] CARD AORTIC STENOSIS,CARDIAC MURMUR,OBESITY,TOBACCO USE [id number] 10/19/2016 10:02:00 017 23:59:59 CLS Outpatient RONY BADILLO, MAGUI Bueno [facility] CARD HEART MURMUR,AORTIC [id number] 11/27/2019 09:00:00 P Yessi Hawkins MD [facility] CATH CHEST PAIN
[2019-11-27] MEDS ORDERED: NS IV 1000 ML 1,000 ML IV SCH ×3 (07:30→10:37)
[2019-11-27] MEDS ORDERED: ACET325T38 PO (07:38)
[2019-11-27 07:42] LABS: HEMOGLOBIN 15.6 G/DL (13.3-17.7); MEAN PLATELET VOLUME 10.1 FL (7.4-10.4); WHITE BLOOD COUNT 8.3 10^3/uL (4.3-11.0)
[2019-11-27 07:51] LABS: INR 0.9 (0.8-1.4)
[2019-11-27 08:01] LABS: ALANINE AMINOTRANSFERASE 25 U/L (0-55); ALBUMIN 4.2 GM/DL (3.2-4.5); ALKALINE PHOSPHATASE 59 U/L (40-136); BILIRUBIN,TOTAL 0.3 MG/DL (0.1-1.0); BUN/CREATININE RATIO 14; CARBON DIOXIDE 25 MMOL/L (21-32); CHLORIDE 105 MMOL/L (98-107); CHOLESTEROL 174 MG/DL (< 200); GFR ESTIMATED > 60; GLUCOSE 104 MG/DL (70-105); HDL CHOLESTEROL 33 MG/DL (40-60); POTASSIUM 4.1 MMOL/L (3.6-5.0); SODIUM 141 MMOL/L (135-145); TOTAL PROTEIN 6.9 GM/DL (6.4-8.2); TRIGLYCERIDES 208 MG/DL (<150); VLDL CHOLESTEROL 42 MG/DL (5-40)
[2019-11-27] MEDS ORDERED: MIDAZOLAM 5 MG/5 ML (VERSED) VIAL ONE (08:43)
[2019-11-27] MEDS ORDERED: fentaNYL INJECTION 100 MCG/2 ML AMP ONE ×2 (08:43→09:44)
[2019-11-27] MEDS ORDERED: NITRO DRIP 25000 MCG/D5W 250 ML IV ONE (08:44)
[2019-11-27] MEDS ORDERED: HEParin 1000 UNIT/ML (10ML VIAL) FOR BOLUS ONE (08:44)
[2019-11-27] MEDS ORDERED: VERAPAMIL 5 MG/2 ML (CALAN) VIAL IV ONE (08:44)
[2019-11-27] MEDS ORDERED: MIDAZOLAM 2 MG/2 ML (VERSED) VIAL ONE (09:50)
--- NOTE | 2019-11-27 10:37 | Cardiac Procedure Note-CS/ASA ---
Pre-Procedure Note Pre-Op Procedure Note H&P Reviewed The H&P was reviewed, patient examined and no changes noted. Date H&P Reviewed: Nov 27, 2019 Time H&P Reviewed: 08:30 Conscious Sedation Pre-Proced Time 08:30 ASA Score 3 For ASA 3 and 4: Consider anesthesia and medical clearance. Also, for patients with a history of failed moderate sedation consider anesthesia. Airway Lungs Heart ASA score ASA 1: a normal healthy patient ASA 2: a patient with a mild systemic disease (mid diabetes, controlled hypertension, obesity ASA 3: a patient with a severe systemic disease that limits activity (angina, COPD, prior Myocardial infarction) ASA 4: a patient with an incapacitating disease that is a constant threat to life (CHF, renal failure) ASA 5: a moribund patient not expected to survive 24 hrs. (ruptured aneurysm) ASA 6: a declared brain- patient whose organs are being harvested. For emergent operations, add the letter E after the classification Mallampati Classification Grade 1 Sedation Plan Analgesia, Amnesia, Plan communicated to team members, Discussed options with patient/fam, Discussed risks with patient/fam The patient is an appropriate candidate to undergo the planned procedure, sedation, and anesthesia. The patient immediately re-assessed prior to indication. Yessi MEDEROS MD Nov 27, 2019 10:37
[2019-11-27] MEDS ORDERED: PATIENT MAY USE OWN MEDS, ALL PO SCH (10:45)
--- NOTE | 2019-11-27 10:52 | Coronary Angiography Report ---
Coronary Angiography Report DATE OF PROCEDURE: 11/27/19 INDICATION: Chest pain, positive troponins, bicuspid aortic valve, ascending thoracic aorta aneurysm, pre cardiothoracic surgery. PREOPERATIVE DIAGNOSIS: Chest pain, positive troponins, bicuspid aortic valve, ascending thoracic aorta aneurysm, pre cardiothoracic surgery. POSTOPERATIVE DIAGNOSIS: 1. Patent epicardial coronary arteries. 2. Severe aortic stenosis. 3. Ascending thoracic aortic aneurysm. 4. Normal abdominal aorta with no PAD. HISTORY: This is a 34-year-old gentleman with history of bicuspid aortic valve, aortic valve stenosis, ascending thoracic aorta aneurysm, wide complex tachycardia, status post ablation for SVT with aberrancy. He presented to the ER with chest pain and borderline positive troponin. This was on 11/17/2019. CTA chest did not show any aortic dissection. Ascending thoracic aorta measured 5.3 cm. Therefore, the patient was scheduled for coronary angiography pre- surgery and to rule out CAD. PROCEDURES PERFORMED: 1.Coronary angiography. 2.Left heart catheterization. 3. Aortic root injection, medical necessity: To provide measurements of the aortic root and sinuses of Valsalva. 4. Aortic arch angiogram, medical necessity: To assess ascending thoracic aorta aneurysm and perform measurements. 5. Abdominal aortogram and bilateral lower extremity runoff: Medical necessity: To rule out abdominal aortic aneurysm. Also we had some difficulty accessing the right femoral artery and therefore wanted to rule out right REFRIGERATOR MOVER disease as well. COMPLICATIONS: None. SPECIMENS: None. ESTIMATED BLOOD LOSS: 10 mL ANESTHESIA: Conscious sedation ANTICOAGULATION: IV heparin CONTRAST: 132 mL. FLUOROSCOPY: 12.2 minutes. FLOUROSCOPY DOSE: 1525 mgy. PROCEDURE DETAILS: The patient is a 34 male and was brought to the manager lab after informed consent was taken. All the risks and complications were explained in detail; this included the risk of bleeding, vascular damage, stroke, ID and even . The patient was draped and prepped in the usual sterile fashion. Access was gained in the right radial artery with a 6 [place] sheath. Due to ascending thoracic aorta aneurysm, we were having significant difficulty engaging and cannulating the RCA and left main. We first used the [place] catheter and performed root angiogram to assess the sinuses of Valsalva and the aortic root. With the [place] catheter we were unable to cannulate the left main. We performed 1 nonselective angiogram which was suboptimal. We then switched to a JL 6 catheter but were still unsuccessful. At this point in time we decided to get access in the right femoral artery with a 5 Green[place]ic sheath. We had difficulty gaining access and advancing the sheath. However we were successful after manipulating the sheath gently. Coronary angiography and left heart catheterization was performed with the JR4 and JL 6 catheter. Aortic arch angiogram was performed with a JR4 catheter. Abdominal aortogram and bilateral lower extremity runoff was performed with a pigtail catheter. FINDINGS: 1.Left main: Patent. 2.LAD: Patent. 3.Left circumflex artery: Patent. 4.RCA: Patent. 5.Left heart catheterization: LV pressure 145/10 mmHg. LVEDP 19 mmHg. Aortic pressure 88/61 mmHg. Peak to peak gradient over 46 mmHg. Mean gradient 44 mmHg. Normal LV function with no wall motion abnormalities. 6. Aortic root angiogram: No significant aortic regurgitation. Sinuses of Valsalva diameter 31.1 +- 4.9 mm. sinotubular junction 21 mm +- 3.4 mm. 7. Aortic arch angiogram: Evidence of ascending thoracic aorta aneurysm. Two- dimensional maximum diameter of 37 mm +- 5.8 mm. Patent proximal segments of the great arteries. 8. Abdominal aortogram and bilateral lower extremity runoff: No abdominal aortic aneurysm with patent bilateral renal arteries and superior mesenteric artery. Normal bilateral common iliac, external iliac, REFRIGERATOR MOVER, SFA arteries. CONCLUSIONS: Patent epicardial coronary arteries with severe aortic valve stenosis and ascending thoracic aorta aneurysm will require surgery. Patient follows with [facility] in [place] and is awaiting surgery. Continue primary prevention measures. Lino Mesa MD, FACP, FACC, [facility] Interventional Cardiology Yessi MESA MD Nov 27, 2019 10:52
--- NOTE | 2019-11-27 11:07 | Discharge Inst-Post CATH ---
Discharge Inst-CATH/EP Problems Reviewed?: Yes Final Diagnosis 1. Patent epicardial coronary arteries. 2. Severe aortic stenosis. 3. Ascending thoracic aortic aneurysm. Post Cardiac Cath/EP D/C Inst Follow Up/Plan Patient will follow-up with Dr. Glen Li in [facility] where he is been scheduled for cardiothoracic surgery. <b>CARDIAC CATH/EP PROCEDURE DISCHARGE INSTRUCTIONS</b> ACTIVITY * Go Home directly and rest. * Limit activity of the leg (or wrist if it was used) for 7 days including aerobics, swimming, jogging, bicycling, etc. * Restrict stair-climbing for 7 days if possible, if not, climb up with your non-cath leg, then bring together on the same step. * Avoid lifting, pushing, pulling or excessive movement of the affected extremity for 7 days. * Customary sexual activity may be resumed after 2 days-use caution not to use a position that strains or causes pain to the affected extremity. * No driving for 24 hours. * NO SMOKING. * Avoid straining for bowel movements for 7 days. * Gentle walking on level ground is allowed. * Returning to work will depend on the type of procedure and the results. Your doctor will discuss this with you. CALL YOUR DOCTOR FOR ANY OF THE FOLLOWING: *If bleeding from the puncture site occurs- Apply gentle pressure to site with clean cloth and call your doctor or EMS. * If a knot or lump forms under the skin, increases in size, or causes pain. * If bruising appears to be worsening or moving further down your leg instead of disappearing. * Temperature above 101 F. CARE OF YOUR GROIN INCISION; * Bruising or purple discoloration of the skin near the puncture site is common. * You may shower only, no bathtub bathing for 5 days. Be careful to avoid slipping as your leg may feel stiff. * If a closure device was used on your femoral artery, please see the attached guide regarding care of the device and your leg. * Leave dressing on FOR 24 hours. CARE OF YOUR WRIST INCISION; * Bruising or purple discoloration of the skin near the puncture site is common. * You may shower. * DO NOT submerge wrist. * Leave dressing on FOR 24 hours. Yessi MEDEROS MD Nov 27, 2019 11:07
--- NOTE | 2019-11-27 11:11 | Cardiology Discharge Summary ---
Diagnosis/Chief Complaint Date of Admission 11/27/2019 Date of Discharge 11/27/2019 Admission Diagnosis Chest pain, positive cardiac enzymes, aortic stenosis, ascending thoracic aortic aneurysm. Final/Discharge Diagnosis 1. Patent epicardial coronary arteries. 2. Severe aortic stenosis. 3. Ascending thoracic aortic aneurysm measuring 5.[address] scan. Chief Complaint/HPI Chief Complaint/HPI This is a 34-year-old gentleman with history of bicuspid aortic valve with severe aortic stenosis and ascending thoracic aorta aneurysm. He presented to the hospital ER on 11/17/2019 and was found to have chest pain and positive troponin. The patient signed out AMA from the hospital before Cardiology could assess the patient. He presented in the office on 11/26/2019 and was scheduled for urgent coronary angiography. Patient is awaiting cardiothoracic surgery at [facility] in [place] but it apparently the cardiac surgeon is on quarantine, therefore the patient is awaiting a new date. Discharge Summary Procedures FINDINGS: 1.Left main: Patent. 2.LAD: Patent. 3.Left circumflex artery: Patent. 4.RCA: Patent. 5.Left heart catheterization: LV pressure 145/10 mmHg. LVEDP 19 mmHg. Aortic pressure 88/61 mmHg. Peak to peak gradient over 46 mmHg. Mean gradient 44 mmHg. Normal LV function with no wall motion abnormalities. 6. Aortic root angiogram: No significant aortic regurgitation. Sinuses of Valsalva diameter 31.1 +- 4.9 mm. sinotubular junction 21 mm +- 3.4 mm. 7. Aortic arch angiogram: Evidence of ascending thoracic aorta aneurysm. Two- dimensional maximum diameter of 37 mm +- 5.8 mm. Patent proximal segments of the great arteries. 8. Abdominal aortogram and bilateral lower extremity runoff: No abdominal aort ic aneurysm with patent bilateral renal arteries and superior mesenteric artery. Normal bilateral common iliac, external iliac, AIRCRAFT TIME CLERK, SFA arteries. Discharge Physical Examination Normal cardiac vascular examination. Hospital Course Was the Problem List Reviewed?: Yes Unremarkable. Pending Labs Laboratory Tests 11/27/19 07:35: White Blood Count 8.3, Red Blood Count 5.37, Hemoglobin 15.6, Hematocrit 44, Mean Corpuscular Volume 81, Mean Corpuscular Hemoglobin 29, Mean Corpuscular Hemoglobin Concent 36, Red Cell Distribution Width 13.0, Platelet Count 196, Mean Platelet Volume 10.1, Prothrombin Time 12.0, INR Comment 0.9, Activated Partial Thromboplast Time 29, Sodium Level 141, Potassium Level 4.1, Chloride Level 105, Carbon Dioxide Level 25, Anion Gap 11, Blood Urea Nitrogen 13, Creatinine 0.90, Estimat Glomerular Filtration Rate > 60, BUN/Creatinine Ratio 14, Glucose Level 104, Calcium Level 9.0, Corrected Calcium 8.8, Total Bilirubin 0.3, Aspartate Amino Transf (AST/SGOT) 21, Alanine Aminotransferase (ALT/SGPT) 25, Alkaline Phosphatase 59, Total Protein 6.9, Albumin 4.2, Triglycerides Level 208, Cholesterol Level 174, LDL Cholesterol Direct 125, VLDL Cholesterol 42, HDL Cholesterol 33 Discussion & Recommendations Discussion Discussed with the patient at length. Discharge instructions were discussed at length. Patient will continue beta blockers. He was educated that if he has any significant chest pain he should seek immediate medical attention. Follow up appt.: With Dr. Glen Li or his partner in the cardiothoracic team at [facility] in [place]. Dicharge Diet: No Restrictions Activity as Tolerated: Yes Home Medications Reviewed patient Home Medication Reconciliation performed by pharmacy medication reconciliations lighting engineering technician and/or nursing. Patients Allergies have been reviewed. Discharge Home Medications: Reviewed and agree with Discharge Medication list on patient's Discharge Instruction sheet Condition at discharge Stable. Instructions to patient/family Patient will follow-up with Dr. Glen Li in [facility] where he is been scheduled for cardiothoracic surgery. Yessi MEDEROS MD Nov 27, 2019 11:11
== END 2019-11-27 14:55 | disposition home or self-care (01) ==
LOC: CATH 07:12
PROVIDERS: ATTEND Internal Medicine Interventional Cardiology
DX: I35.0 Nonrheumatic aortic (valve) stenosis (principal); I71.2 Thoracic aortic aneurysm, without rupture; F17.210 Nicotine dependence, cigarettes, uncomplicated; Z79.899 Other long term (current) drug therapy; Z11.2 Encounter for screening for other bacterial diseases
CPT/HCPCS: 36415; 80053; 80061; 85027; 85610; 85730; 87081

== ENCOUNTER 2019-12-17 23:10 | Emergency (ER) | payer BC ==
[~2019-12-17] VITALS: Ht 177.8 cm; Wt 135.0 kg
[~2019-12-17 23:10] MED LIST changes: +ACET325T38 PO
--- OUTSIDE RECORDS SUMMARY | 2019-12-17 23:21 | XMS REPORT | Clinical Summary ---
Author Author [facility] Organization [facility] Address Unknown Phone Unavailable Care Team Providers Care Coal Yard Supervisor Name Role Phone Nichol Tobar PCP Allergies Comments Active Allergy Reactions Severity Noted Date Hydrocodone Nausea And Low 08/26/2019 Vomiting Medications End Date Status Medication Sig Dispensed Refills Start Date Active LORazepam (ATIVAN) 0.5 MG Take 0.5 mg 0 tablet by mouth every 6 (six) hours as needed for anxiety. Active metoprolol succinate Take 200 mg 0 (TOPROL-XL) 200 MG 24 hr by mouth tablet every evening. Active aspirin 81 MG chewable Chew 1 tablet 0 2 02 tablet (81 mg total) 0 daily. Active gabapentin (NEURONTIN) Take 1 30 capsule 0 300 MG capsule capsule (300 0 mg total) by mouth 3 (three) times a day. Active Lidocaine (LIDODERM) 5 % Place 1 patch 5 patch 0 patch on the skin 0 daily. Remove & Discard patch within 12 hours or as directed by MD Active oxyCODONE (ROXICODONE) 5 Take 1-2 40 tablet 0 0 MG immediate release tablets (5-10 0 tablet mg total) by mouth every 6 (six) hours as needed. Max Daily Dose: 40 mg Active warfarin (COUMADIN) 10 MG Take 1 tablet 30 tablet 0 tablet (10 mg total) 0 by mouth every evening. Active warfarin (COUMADIN) 1 MG Take 1 tablet 30 tablet 0 tablet (1 mg total) 0 by mouth take as directed. Take as directed by INR Active Problems Problem Noted Date Hyponatremia 12/03/2019 Severe obesity (BMI >= 40) 12/02/2019 Acute post-operative pain 12/02/2019 Leukocytosis 12/02/2019 Aortic stenosis 12/01/2019 S/P mechanical AVR (aortic valve replacement) 2019 Hypoxemia 12/01/2019 Hyperkalemia 12/01/2019 Cigarette nicotine dependence without complication 1 10/31/2018 Hypersomnolence 08/29/2019 Ascending aorta dilatation 06/03/2019 Overview: 5.0 cm ascending aorta; 3.5 cm at sinus es of Valsalva VT (ventricular tachycardia) Overview: with aberrancy Morbid obesity Aortic stenosis due to bicuspid aortic valve Anxiety Resolved Problems Problem Noted Date Resolved Date Low cardiac stroke volume index 12/01/20192019 Encounters Care Team Description Date Type Specialty Scanning, Interface 12/17/2019 Documentation Reuben Li MD AORTIC VALVE REPLACEMENT WITH 25MM [facility] MECHANICAL 12/01/2019 Surgery Cardiothoracic Surg Rusty Lang MD Wrisinger, William, DO 12/01/2019 Anesthesia Cardiothoracic Surg ronnie Event 12/01/2019 Imaging Radiology Appointment Reuben Li MD S/P mechanical AVR (aortic valve replace ment) (Primary Dx); Encounter for consultation; Acute post-operative pain; Hypoxemia; Leukocytosis, unspecified type; Severe obesity (BMI >= 40) ([facility]) 12/01/2019 Hospital Cardiothoracic Surg ronnie - Encounter 12/07/2019 Encounter for consultation 11/28/2019 Imaging Radiology Appointment Encounter for consultation 11/28/2019 Imaging Radiology Appointment Encounter for consultation 11/28/2019 Imaging Radiology Appointment Encounter for consultation 11/28/2019 Imaging Radiology Appointment Encounter for consultation 11/28/2019 Imaging Radiology Appointment Encounter for consultation 11/28/2019 Imaging Radiology Appointment Encounter for consultation 11/28/2019 Imaging Radiology Appointment Encounter for consultation 11/28/2019 Imaging Radiology Appointment Encounter for consultation 11/28/2019 Imaging Radiology Appointment Encounter for consultation 11/28/2019 Imaging Radiology Appointment Encounter for consultation 11/28/2019 Imaging Radiology Appointment Encounter for consultation 11/28/2019 Imaging Radiology Appointment Encounter for consultation 10/24/2019 [...] Cardiology Korin Rehman RN 2019 Telephone Cardiology from Last 3 Months Family History [...] Signs Reading Time Taken Comments Vital Sign 114/60 12/07/2019 11:32 AM CDT Blood Pressure 76 12/07/2019 11:32 AM CDT Pulse 37.1 C (98.8 F) 12/07/2019 11:32 AM CDT Temperature 18 12/07/2019 11:32 AM CDT Respiratory Rate 93% 12/07/2019 11:32 AM CDT Oxygen Saturation - - Inhaled Oxygen Concentration 137.7 kg (303 lb 9.6 oz) 12/07/2019 5:18 AM CDT Weight 180.3 cm (5' 11") 12/01/2019 7:00 AM CDT Height 42.34 12/01/2019 7:00 AM CDT Body Mass Index Plan of Treatment Health Maintenance Due Date Last Done Comments Td # 1985 Pneumococcal Vaccine: 1993 Pediatrics (0 to 5 Years) and At-Risk Patients (6 to 64 Years) (1 of 1 - PPSV23) Influenza Vaccine (Season 07/04/2020 07/31/2001 Ended) Tobacco Cessation 08/29/2020 08/29/2019 Counseling # Implants Device Identifier Shelf Expiration Date Model / Serial / L ot Implanted Type Area Manufactur er 06/23/2024 [id number] / [id number] / Implant Valve Aortic [place] Flex Tissue N/A: Heart [facility] [employer] 25mm [id number] - [id number] Implant MEDICAL Implanted: Qty: 1 on 12/01/2019 by HEART Reuben Li MD at [facility] Procedures Comments Procedure Name Priority Date/Time Associated Diag nosis PROTHROMBIN TIME/INR Routine 12/07/2019 2:26 AM CDT BASIC METABOLIC PANEL Routine 12/06/2019 12:31 AM CDT COMPLETE BLOOD COUNT Routine 12/06/2019 12:31 AM CDT PROTHROMBIN TIME/INR Routine 12/06/2019 12:31 AM CDT POTASSIUM Routine 12/05/2019 12:45 AM CDT PROTHROMBIN TIME/INR Routine 12/05/2019 12:45 AM CDT XR CHEST 2 VIEWS (PA AND Routine 12/04/2019 LATERAL) 7:12 AM CDT ECG Routine 12/04/2019 3:39 AM CDT PROTHROMBIN TIME/INR Routine 12/04/2019 1:15 AM CDT BASIC METABOLIC PANEL Routine 12/04/2019 1:15 AM CDT COMPLETE BLOOD COUNT Routine 12/04/2019 1:15 AM CDT GLUCOSE POC Routine 12/03/2019 7:42 AM CDT PROTHROMBIN TIME/INR Routine 12/03/2019 1:25 AM CDT COMPLETE BLOOD COUNT Routine 12/03/2019 1:25 AM CDT BASIC METABOLIC PANEL Routine 12/03/2019 1:25 AM CDT GLUCOSE POC Routine 12/02/2019 9:36 PM CDT GLUCOSE POC Routine 12/02/2019 4:57 PM CDT GLUCOSE POC Routine 12/02/2019 12:09 PM CDT POTASSIUM Timed 12/02/2019 11:49 AM CDT XR CHEST SINGLE VIEW STAT 12/02/2019 FRONTAL 9:40 AM CDT GLUCOSE POC Routine 12/02/2019 8:04 AM CDT POTASSIUM Timed 12/02/2019 6:58 AM CDT GLUCOSE POC Routine 12/02/2019 6:05 AM CDT PROTHROMBIN TIME/INR Routine 12/02/2019 6:01 AM CDT XR CHEST SINGLE VIEW Routine 12/02/2019 FRONTAL 5:47 AM CDT GLUCOSE POC Routine 12/02/2019 4:10 AM CDT GLUCOSE POC Routine 12/02/2019 1:57 AM CDT GLUCOSE POC Routine 12/01/2019 11:53 PM CDT BASIC METABOLIC PANEL Routine 12/01/2019 11:51 PM CDT COMPLETE BLOOD COUNT Routine 12/01/2019 11:51 PM CDT GLUCOSE POC Routine 12/01/2019 9:53 PM CDT GLUCOSE POC Routine 12/01/2019 8:53 PM CDT GLUCOSE POC Routine 12/01/2019 7:55 PM CDT POTASSIUM Timed 12/01/2019 6:12 PM CDT GLUCOSE POC Routine 12/01/2019 6:11 PM CDT ANESTHESIA ISABELLA Routine 12/01/2019 5:29 PM CDT GLUCOSE POC Routine 12/01/2019 5:07 PM CDT GLUCOSE POC Routine 12/01/2019 4:04 PM CDT GLUCOSE POC Routine 12/01/2019 3:01 PM CDT GLUCOSE POC Routine 12/01/2019 2:02 PM CDT PROTHROMBIN TIME/INR Routine 12/01/2019 2:00 PM CDT XR CHEST SINGLE VIEW STAT 12/01/2019 FRONTAL 1:31 PM CDT HGB K POC ([facility] ONLY) Routine 12/01/2019 1:09 PM CDT GLUCOSE POC Routine 12/01/2019 1:07 PM CDT RESPIRATORY COMMUNICATION Routine 12/01/2019 12:28 PM CDT PULSE OXIMETRY, Routine 12/01/2019 CONTINUOUS 12:28 PM CDT ANESTHESIA PA CATH Routine 12/01/2019 11:54 AM CDT ANESTHESIA ARTERIAL LINE Routine 12/01/2019 11:09 AM CDT LYTES//HGB/CA POC Routine 12/01/2019 10:51 AM CDT ARTERIAL BLOOD GAS + COOX STAT 12/01/2019 10:51 AM CDT TISSUE PATHOLOGY OR Routine 12/01/2019 BIOPSY 10:38 AM CDT ACTIVATED CLOTTING TIME Routine 12/01/2019 POC 10:33 AM CDT LYTES//HGB/CA POC Routine 12/01/2019 10:32 AM CDT ARTERIAL BLOOD GAS + COOX STAT 12/01/2019 10:32 AM CDT LYTES//HGB/CA POC Routine 12/01/2019 10:06 AM CDT ARTERIAL BLOOD GAS + COOX STAT 12/01/2019 10:06 AM CDT ACTIVATED CLOTTING TIME Routine 12/01/2019 POC 9:53 AM CDT GLUCOSE POC Routine 12/01/2019 9:51 AM CDT ACTIVATED CLOTTING TIME Routine 12/01/2019 POC 9:28 AM CDT GLUCOSE POC Routine 12/01/2019 9:28 AM CDT GLUCOSE POC Routine 12/01/2019 7:42 AM CDT RETYPE PATIENT ABORH Routine 12/01/2019 7:32 AM CDT ECG STAT 12/01/2019 7:31 AM CDT IR OUTSIDE IMAGES FOR Routine 12/01/2019 Encounte r for PACS 7:23 AM CDT consultation HEMOGLOBIN A1C Routine 12/01/2019 7:23 AM CDT RBCS 2 UNITS STAT 12/01/2019 7:10 AM CDT ABORH TYPE STAT 12/01/2019 7:10 AM CDT ANTIBODY SCREEN STAT 12/01/2019 7:10 AM CDT XMATCH STAT 12/01/2019 6:25 AM CDT US OUTSIDE IMAGES FOR Routine 11/28/2019 Encounte r for PACS 2:02 PM CDT consultation IR OUTSIDE IMAGES FOR Routine 11/28/2019 Encounte r for PACS 2:[address] CHEST OUTSIDE IMAGES Routine 11/28/[address] for FOR PACS 2:[address] CHEST OUTSIDE IMAGES Routine 11/28/[address] for FOR PACS 2:[address] CHEST OUTSIDE IMAGES Routine 11/28/[address] for FOR PACS 2:[address] CHEST OUTSIDE IMAGES Routine 11/28/[address] for FOR PACS 2:00 PM CDT consultation US OUTSIDE IMAGES FOR Routine 11/28/2019 Encounte r for PACS 2:00 PM CDT consultation IR OUTSIDE IMAGES FOR Routine 11/28/2019 Encounte r for PACS 2:[address] OUTSIDE IMAGES FOR Routine 11/28/2019 Encounte r for PACS 2:[address] CHEST OUTSIDE IMAGES Routine 11/28/[address] for FOR PACS 1:[address] OUTSIDE IMAGES FOR Routine 11/28/2019 Encounte r for PACS 1:[address] OUTSIDE IMAGES FOR Routine 11/28/2019 Encounte r for PACS 1:[address] OUTSIDE IMAGES FOR Routine 10/24/2019 Encounte r for PACS 8:15 AM [employer] consultation US OUTSIDE IMAGES FOR Routine 10/24/2019 Encounte r for PACS 8:04 AM [employer] MAK[employer] consultation CT OUTSIDE IMAGES FOR Routine 10/24/2019 Encounte r for PACS 8:03 AM [employer]Y MAKER consultation CT OUTSIDE IMAGES FOR Routine 10/24/2019 Encounte r for PACS 8:03 AM [employer]Y MAKER consultation CT OUTSIDE IMAGES FOR Routine 10/24/2019 Encounte r for PACS 8:02 AM [employer] CANDY MAKER consultation CT OUTSIDE IMAGES FOR Routine 10/24/2019 Encounte r for PACS 8:02 AM [employer] MAKER consultation US OUTSIDE IMAGES FOR Routine 10/24/2019 Encounte r for PACS 8:01 AM [employer] MAKER consultation IR OUTSIDE IMAGES FOR Routine 10/24/2019 Encounte r for PACS 8:01 AM [employer] CANDY MAKER consultation CT OUTSIDE IMAGES FOR Routine 10/24/2019 Encounte r for PACS 8:00 AM [employer]Y MAKER consultation CT OUTSIDE IMAGES FOR Routine 10/24/2019 Encounte r for PACS 8:00 AM [employer]Y MAKER consultation CT OUTSIDE IMAGES FOR Routine 10/24/2019 Encounte r for PACS 7:59 AM [employer] consultation US OUTSIDE IMAGES FOR Routine 10/22/2019 Encounte r for PACS 3:24 PM [employer] consultation IR OUTSIDE IMAGES FOR Routine 10/22/2019 Encounte r for PACS 3:23 PM [employer] MAK[employer] consultation CT OUTSIDE IMAGES FOR Routine 10/22/2019 Encounte r for PACS 3:22 PM [employer] consultation US OUTSIDE IMAGES FOR Routine 10/22/2019 Encounte r for PACS 3:21 PM [employer] consultation IR OUTSIDE IMAGES FOR Routine 10/22/2019 Encounte r for PACS 3:21 PM [employer] consultation from Last 3 Months Results * Prothrombin Time/INR--if patient on warfarin (12/07/2019 2:26 AM CDT) Only the most recent of 7 results within the time period is included. Protime 21.1 (H) 11.4 - 15.0 sec [facility] INR 1.9 (H) 0.8 - 1.2 [facility] Specimen Blood Performing Organization Address [facility] one Number [facility] [address] [place] [address] LABORATORIES [facility] [address] [place] [address] * Complete Blood Count (12/06/2019 12:31 AM CDT) Only the most recent of 4 results within the time period is included. WBC 9.27 4.00 - 11.00 TH/uL [facility] RBC 3.56 (L) 4.31 - 5.84 MIL/uL [facility] Hemoglobin 10.5 (L) 13.0 - 17.0 g/dL [facility] Hematocrit 30 (L) 40 - 50 % [facility] MCV 83 80 - 99 fL [facility] MCH 30 27 - 34 pg [facility] MCHC 36 32 - 36 % [facility] RDW 12.5 11.5 - 14.5 % [facility] Platelet Count 213 140 - 400 TH/uL [facility] MPV 9.8 9.4 - 12.3 fL [facility] Nucleated RBCs 0 0 - 0 /100 [facility] Specimen Blood Performing Organization Address City/[facility] one Number [facility] [address] [place] [address] LABORATORIES [facility] [address] [place] [address] * Basic Metabolic Panel (12/06/2019 12:31 AM CDT) Only the most recent of 4 results within the time period is included. Pathologist [facility] Sodium 134 133 - 147 MEQ/L [facility] Potassium 3.6 3.5 - 5.3 MEQ/L [facility] Chloride 98 96 - 112 MEQ/L [facility] Carbon Dioxide 31 20 - 32 MEQ/L [facility] Anion Gap 4 (L) 5 - 17 [facility] Calcium 8.7 8.4 - 10.5 mg/dL [facility] Glucose 111 (H) 70 - 100 mg/dL [facility] Blood Urea 16 7 - 26 mg/dL [facility] Creatinine 0.8 0.6 - 1.3 mg/dL [facility] eGFR Male AA >130 60 - 200 [facility] mL/min/1.73sq [facility] eGFR Male 112 60 - 200 [facility] Non-AA mL/min/1.73sq [facility] Specimen Blood Performing Organization Address City/[facility] one Number [address] [address] LABORATORIES [facility] [address] [place] [address] * Potassium (12/05/2019 12:45 AM CDT) Only the most recent of 4 results within the time period is included. Potassium 3.7 3.5 - 5.3 MEQ/L [facility] Specimen Blood Performing Organization Address City/[facility] one Number [address] [address] LABORATORIES [facility] [address] [place] [address] * XR Chest 2 views (PA and lateral) (12/04/2019 7:12 AM CDT) Specimen Impressions Performed At Left worse than right bibasilar subsegmental atelecta sesLuz [place] Mildly interstitial pulmonary edema. READING SITE: Home, due to Covid-19 Narrative Performed At Patient: TRUPTI PARRISH Sex#: M #: [id number] Taylor# : [id number] Location: [place] [address] Acces eduarda#: [id number] Procedure Requested: [id number] XR CHEST 2 VIEWS (PA AND LATERAL) Reason for Exam: S/P mechanical AVR Exam Ordered: 12/04/2019 000 0 Exam Date/Time: 12/04/2019 0712 Begin exam date/time: 12/04/2019 0704 XR CHEST 2 VIEWS (PA AND LATERAL) INDICATION: S/P mechanical AVR. COMPARISON STUDY: 12/02/2019. FINDINGS: Life Support Devices: Loop recorder estrella ng the anterior chest wall. Lungs: Left worse than right bibasilar subsegmental atelectases. Mildly interstitial pulmonary edema. Pleura: No pleural effusion or pneumoth orax. Heart and Mediastinum: Stable heart and mediastinum. Bones and soft tissues: Stable regional skeleton. Procedure Note Interface, Rad Results In - 12/04/2019 7:31 AM CDT Patient: TRUPTI PARRISH Sex#: M #: [id number] Taylor#: [id number] Location: [address] H410-01 Procedure Requested: [id number] XR CHEST 2 VIEWS (PA AND LATERAL) Reason for Exam: S/P mechanical AVR Exam Ordered: 12/04/2019 0000 Exam Date/Time: 12/04/2019 0712 Begin exam date/time: 12/04/2019 0704 XR CHEST 2 VIEWS (PA AND LATERAL) INDICATION: S/P mechanical AVR. COMPARISON STUDY: 12/02/2019. FINDINGS: Life Support Devices: Loop recorder along the anterior chest wall. Lungs: Left worse than right bibasilar subsegmental atelectases. Mildly interstitial pulmonary edema. Pleura: No pleural effusion or pneumothorax. Heart and Mediastinum: Stable heart and mediastinum. Bones and soft tissues: Stable regional skeleton. IMPRESSION Left worse than right bibasilar subsegmental atelectases. Mildly interstitial pulmonary edema. READING SITE: Home, due to Covid-19 Performing Organization Address City/State/Zipcode Ph one Number [facility] * Electrocardiogram (ECG) (12/04/2019 3:39 AM CDT) Only the most recent of 2 results within the time period is included. 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: [id number] : 1985 Requested By: JIMMY RAMÍREZ Order Number: [id number] Reading MD: Ronnell Damian Measurements Intervals [place] Rate: 120 P: 37 WA: 148 QRS: 15 QRSD: 102 T: 29 QT: 328 QTc: 464 Interpretive Statements SINUS TACHYCARDIA PROBABLE LEFT VENTRICULAR HYPERTROPHY ST ELEVATION, CONSIDER PERICARDITIS Electronically Signed On 12-04-2019 10:36 :48 CDT by Ronnell Damian Procedure Note Interface, External Ris In - 12/04/2019 10:36 AM CDT [facility] Test Date: 2019-12-04 Pat Name: TRUPTI PARRISH Department: [facility] H4S Room: H410 Gender: Male Pony Ride Operator: [id number] : 1985 Requested By: JIMMY RAMÍREZ Order Number: [id number] Reading MD: Ronnell Damian Measurements Intervals [place] Rate: 120 P: 37 WA: 148 QRS: 15 QRSD: 102 T: 29 QT: 328 QTc: 464 Interpretive Statements SINUS TACHYCARDIA PROBABLE LEFT VENTRICULAR HYPERTROPHY ST ELEVATION, CONSIDER PERICARDITIS Electronically Signed On 12-04-2019 10:36:48 CDT by Ronnell Damian Performing Organization Address City/[facility] one Number [facility] * GLUCOSE POC (12/03/2019 7:42 AM CDT) Only the most recent of 21 results within the time period is included. Glucose POC 134 (H) 70 - 100 mg/dL [facility] Specimen Performing Organization Address City/[facility] one Number [address] [address] LABORATORIES * XR Chest single view frontal (12/02/2019 9:40 AM CDT) Only the most recent of 3 results within the time period is included. Specimen Impressions Performed At Mildly improved interstitial pulmonary edema. Mild bi basilar MCKESSON subsegmental atelectases. Probable smal l left pleural effusion. Support apparatus as described. READING SITE: Home, due to Covid-19 Narrative Performed At Patient: TRUPTI PARRISH Sex#: M #: 1985 Taylor# : [id number] Location: [address] ICU [id number] Access ion#: [id number] Procedure Requested: [id number] XR CHEST SINGLE VIEW FRONTAL Reason for Exam: chest tube removal Exam Ordered: 12/02/2019 09 42 Exam Date/Time: 12/02/2019 094 0 Begin exam date/time: 12/02/2019 093 0 XR CHEST SINGLE VIEW FRONTAL INDICATION: chest tube removal. COMPARISON STUDY: 12/02/2019. FINDINGS: Life Support Devices: Interval removal of PA catheter with right IJ introducer remaining in place. Lungs: Low lung volume with diffuse bro nchovascular crowding. Mildly improved interstitial pulmonary edema. Pleura: Probable small left pleural eff usion. No pneumothorax. Heart and Mediastinum: Stable heart and mediastinum. Bones and soft tissues: Stable regional skeleton. Procedure Note Interface, Rad Results In - 12/02/2019 10:18 AM CDT Patient: TRUPTI PARRISH Sex#: M #: 1985 Taylor#: [id number] Location: [address] ICU [id number]-[id number] Procedure Requested: [id number] XR CHEST SINGLE VIEW FRONTAL Reason for Exam: chest tube removal Exam Ordered: 12/02/2019 0942 Exam Date/Time: 12/02/2019 0940 Begin exam date/time: 12/02/2019 0930 XR CHEST SINGLE VIEW FRONTAL INDICATION: chest tube removal. COMPARISON STUDY: 12/02/2019. FINDINGS: Life Support Devices: Interval removal of PA catheter with right IJ introducer remaining in place. Lungs: Low lung volume with diffuse bronchovascular crowding. Mildly improved interstitial pulmonary edema. Pleura: Probable small left pleural effusion. No pneumothorax. Heart and Mediastinum: Stable heart and mediastinum. Bones and soft tissues: Stable regional skeleton. IMPRESSION Mildly improved interstitial pulmonary edema. Mild bibasilar subsegmental atelectases. Probable small left pleural effusion. Support apparatus as described. READING SITE: Home, due to Covid-19 Performing Organization Address City/State/Zipcode Ph one Number [place] * ANESTHESIA ISABELLA (12/01/2019 5:29 PM CDT) Narrative Performed At Rusty Ventura MD 12/01/2019 5:3 3 PM ISABELLA [address]- Probe placement, image acquistio n & report, 99177- Doppler, pulse wave and/or continuous with spectral di splay and 31156- Doppler color flow velocity mappingPerforming Physician: Michael real Preanesthetic checklist: patient identi fied, risks and benefits discussed, pre-op evaluation, monitors and equipme nt checked and anesthesia consent Timeout: correct patient and correct pr ocedure Timeout Performed: 07:45 Diagnosis: Wall motion: abnormal (Septal hypkinesi s) Normal left ventricular systolic functi on. Estimated ejection fraction 60%, Normal wall thickness. Ascending aorta: normal Descending aorta: normal Normal left ventricular dimensions. Normal right ventricular size and systo lic function. Normal right and left atrial size. Aortic valve: abnormal, with regurgitat ion and with stenosis (Bicusp AV), moderate and eccentric, severe Mitral valve: normal Pulmonic valve: normal Tricuspid valve: normal no Interarterial septum: normal no no Left atrial appendage: No Mass seen. Normal emptying velocity ISABELLA probe removed easily and atraumatic ally: yesNotes: Post CPB: Normal functioning mechanical aortic prosthesi s. Trace AI. No MR or TR. LV and RV function preserved. No evidence of A o dissection. Remainder of exam without change. * HGB/K POC (12/01/2019 1:09 PM CDT) Hemoglobin 15.7 13.0 - 17.0 g/dL [facility] Potassium 5.4 (H) 3.5 - 5.3 MEQ/L [facility] Specimen Performing Organization Address City/State/[facility] one Number [address] [address] LABORATORIES * ANESTHESIA PA CATH (12/01/2019 11:54 AM CDT) Narrative Performed At JOSÉ ANTONIO Ron 0 11:56 AM PA Catheter Patient location during procedure: OR Start time: 12/01/2019 8:25 AM End time: 12/01/2019 8:39 AM Staffing MD Audrey Performed by: anesthesiologist Preanesthetic Checklist Preanesthetic Checklist: patient iden tified, risks and benefits discussed, pre-op evaluation, monitors and equipment checked and anesthesia consent Timeout: correct patient, correct site, correct position, correct procedure and correct laterality Timeout Performed: 08:20 Line Placement Diagnosis: Referring Physician: Guillermo Pulmonary artery catheter, new line and elective procedure performed post-induction Right internal jugular insertion site pa cath existing sheaththrough sheath placed immediately prior with patient in Trendelenburg position. Inserted with all elements of maximum sterile barrier technique; ChloraPrep, full bar rier drape, hat, gown, mask and hygiene prior to donning sterile gloves . Ultrasound guided, 9 Fr catheter placed, with length of 10 cm. Sterile dressing used, secured with sut ure. Verification method: ISABELLA. Placement verified by MD Audrey. Malini ent tolerated procedure well. * ANESTHESIA ARTERIAL LINE (12/01/2019 11:09 AM CDT) Narrative Performed At Rusty Ventura MD 12/01/2019 11:10 AM Art Line Patient location during procedure: pre- op Start time: 12/01/2019 7:10 AM End time: 12/01/2019 7:12 AM Staffing MD Audrey and SANDRO Wharton Performed by: JAYLENE Preanesthetic Checklist Preanesthetic Checklist: patient iden tified, risks and benefits discussed, monitors and equipment check ed, anesthesia consent and pre-op evaluation Timeout: correct patient, correct site, correct position, correct procedure and correct laterality Timeout Performed: 07:10 Line Placement Diagnosis: Bicuspid Aortic Valve with A S Referring Physician: MD Guillermo Patient Position: supine Sterile Prep: alcohol Insertion Site: left radial Local skin infiltration: 1% lidocaine a dministered. copy of ultrasound film not in chart. Catheter size: 20 gauge, 1.75 in secure d with other (comment). Complications: none Arterial waveform: Yes IBP within 10% of NIBP: Yes * Lytes//HGB/CA POC (12/01/2019 10:51 AM CDT) Only the most recent of 3 results within the time period is included. Ionized Calcium 4.3 (L) 4.5 - 5.3 mg/dL [facility] Sodium 132 (L) 133 - 147 MEQ/L [facility] Potassium 6.6 (C) 3.5 - 5.3 MEQ/L [facility] Specimen Arterial Performing Organization Address City/State/[facility] Ph one Number [address] [address] LABORATORIES [facility] [address] [place] [address] * Arterial Blood Gas + Coox (12/01/2019 10:51 AM CDT) Only the most recent of 3 results within the time period is included. Hemoglobin 12.1 (L) 13.0 - 17.0 g/dL [facility] Whole Blood [facility] Oxyhemoglobin 95.8 95.0 - 100.0 % THB [facility] Carboxyhemoglob 3.4 (H) 0.0 - 1.5 % THB [facility] in [facility] Methemoglobin 0.5 0.0 - 1.5 % B [facility] Total Oxygen 99.7 95.0 - 100.0 % [facility] Saturation [facility] O2 Content 16.7 (L) 17.0 - 100.0 mL/dL [facility] PO2 Arterial 177 (H) 80 - 100 mm Hg [facility] pCO2 Arterial 41 35 - 45 mm Hg [facility] pH Arterial 7.31 (L) 7.35 - 7.45 units [facility] Bicarbonate 20.6 19.0 - 29.0 MEQ/L [facility] Base Excess -5.4 (L) -3.0 - 3.0 MEQ/L [facility] Specimen Arterial Performing Organization Address City/[facility]/Zipcode Ph one Number [address] [address] LABORATORIES [facility] [address] [place] [address] * Tissue Pathology or Biopsy (12/01/2019 10:38 AM CDT) Specimen Tissue - Aortic Valve Narrative Performed At [facility] RE[facility] PATIENT: TRUPTI PARRISH /AGE/SEX: 1985 (Age: 34) /M ID #: [id number] SUBMITTING PHYSICIAN: Traci Leiva MD CLIENT: [facility] COLLECTED: 12/01/2019 REPORTED: 12/02/2019 SPECIMEN #: [id number] ##################MICROSCOPIC INTERPRET ATION################## Cardiac aortic valve, excision with noris ve replacement: - Nodular calcification and degen erative change. Melva Benitez M.D. Report Electronically Signed Out CDW:12/02/19 ELISA([facility]) CLINICAL HISTORY/IMPRESSION: Aortic valve. SPECIMEN LABELED: Aortic valve GROSS DESCRIPTION: The specimen is received in neutral buf fered formalin, labeled with the patient name and further designated "aortic noris ve." The specimen consists of a 3.2 x 2.7 x 0.6 cm coughlin-white and rubbery piece of soft tissue. Sectioning reveals a red-yellow, calcified cut surface. Campus Rep sections are submitted in cassette A1 after decalcification. (JOURDAN) jourdan Professional Component performed by ELISA , a [facility] located at [facility], [id number] [place] [address] Technical Component performed at [facility] rhett [place], [place] [id number] If immunohistochemical stains and or in situ hybridization are cited in this report, the performance characteristics were determined by [facility] in compliance with CLIA'88 regulations. Some of these tests rely on the use of 'analyte specific reagents' and are subject to specific l abeling requirements by the FDA. Known positive and negative control tissues d emonstrate appropriate staining. Results should be interpreted with caution give n the likelihood of false negativity on decalcified specimens. This testing was developed b sweetie [facility]. It has not been cleared or approved by the FDA. The FDA has determined that such clearance or approval is not necessary. ###END OF REPORT### Performing Organization Address City/State/Zipcode Ph one Number [facility] [address] [facility] [place] [phone] * Activated Clotting Time POC (12/01/2019 10:33 AM CDT) Only the most recent of 3 results within the time period is included. Activated 543 (H) 99 - 130 sec [facility] Clotting Time [facility] Specimen Performing Organization Address City/[facility] Ph one Number [facility] [address] [place] [address] LABORATORIES * Retype Patient ABORH (12/01/2019 7:32 AM CDT) Pathologist [facility] [place] ABORH Type A Positive [facility] Confirm Blood Yes [facility] Specimen Blood Performing Organization Address City/[facility] Ph one Number [facility] [address] [place] [address] LABORATORIES [facility] [address] [place] [address] * Hemoglobin A1C (12/01/2019 7:23 AM CDT) Pathologist [facility] Hemoglobin A1C 5.6 4.0 - 5.6 % [facility] Comment: Hospital Lab Non-diabetic 4.0 - 5.6 % Prediabetes 5.7 - 6.4 % Diabetes >= 6.5 % Specimen Blood Performing Organization Address City/[facility] one Number [facility] [address] [place] [address] LABORATORIES [facility] [address] [place] [address] * IR Outside images for PACS (12/01/2019 7:23 AM CDT) Only the most recent of 6 results within the time period is included. Specimen Performing Organization Address City/[facility] one Number [place] * RBCs 2 Units (12/01/2019 7:10 AM CDT) 01 - PRODUCT ID Red Blood Cells PlatformQ [facility] 01 - UNIT [id number] PlatformQ NUMBER [facility] 01 - CROSS Compatible [employer] [facility] 01 - STATUS Ready PlatformQ INFO [facility] 01 - PRODUCT [id number] PlatformQ CODE [facility] 01 - BLOOD TYPE A Pos PlatformQ [facility] 02 - PRODUCT ID Red Blood Cells Performable Dat[employer] [facility] 02 - UNIT [id number] [facility] [email or web address] NUMBER [facility] 02 - CROSS Compatible [facility] 02 - STATUS Ready [facility] 02 - PRODUCT [id number] [facility] CODE [facility] 02 - BLOOD TYPE A Pos [facility]IES Specimen Blood Performing Organization Address City/State/Zipcode Ph one Number [facility] [address] [place] [address] LABORATORIES * Antibody Screen (12/01/2019 7:10 AM CDT) Antibody Screen Negative Negative [facility] Specimen Blood Performing Organization Address City/State/Zipcode Ph one Number [facility] [address] [place] [address] LABORATORIES [facility] [address] [place] [address] * ABORH Type (12/01/2019 7:10 AM CDT) ABORH Type A Positive [facility] Specimen Blood Performing Organization Address City/State/Zipcode Ph one Number [facility] [address] [place] [address] LABORATORIES [facility] [address] [place] [address] * XMATCH (12/01/2019 6:25 AM CDT) Specimen Blood Performing Organization Address City/State/Zipcode Ph one Number [facility] [address] [place], [place] [address] * [place] Outside images for PACS (11/28/2019 2:02 PM CDT) Only the most recent of 6 results within the time period is included. Specimen Performing Organization Address City/State/Zipcode Ph one Number [place] * CT Outside images for PACS Chest (11/28/2019 2:01 PM CDT) Only the most recent of 5 results within the time period is included. Specimen Performing Organization Address City/State/Zipcode Ph one Number [place] * CT Outside images for PACS (11/28/2019 2:00 PM CDT) Only the most recent of 12 results within the time period is included. Specimen Performing Organization Address City/State/Zipcode Ph one Number [place] from Last 3 Months Insurance Type Payer Benefit Subscriber ID Effective Phone Address Plan / Dates Group BLUE [employer]OSS [employer]UE [employer] BC OUT OF xxxxxxxxxxxx 19 20- AREA Present TRADITIONA L HENRI CANO BC OUT OF xxxxxxxxxxxx 19 20- AREA PREF Present CARE Advance Directives For more information, please contact: [phone] Patient Campus Rep Explanation Type Date Recorded Health Care Directive Date Inactivated Comments Code Status Date Activated 12/07/2019 4:40 PM Full Code 12/01/2019 12:12 PM
--- OUTSIDE RECORDS SUMMARY | 2019-12-17 23:21 | XMS REPORT | Encounter Summary ---
Author Author [facility] Organization [facility] Address Unknown Phone Unavailable Care Team Providers Care Assistant Professor Of Nursing Name Role Phone Nichol Tobar PCP Reason for Referral * Rehabilitation - Outpatient (Routine) Referred By Contact Referred To Contact Status Reason Specialty Diagnoses / Procedures Reuben Li MD [address] [address] Closed Specialty Services Cardiac Diagnoses Required Rehabilitation S/P AVR (aortic valve replacement) Reason for Visit * Auth/Cert Referred By Contact Referred To Contact Status Reason Specialty Diagnoses / Procedures Diagnoses AORTIC STENOSIS P rocedures TN RPLCMT PROST AORTIC VALVE OPEN XCP HOMOGRF/STENT AORTIC VALVE REPLACEMENT (MECHANICAL) ECHOCARDIOGRAM, TRANSESOPHAGEAL POSSIBLE REPLACEMENT OF ASCENDING AORTA Encounter Details Care Team Description Date Type Department Reuben Li MD [address] [id number] S/P mechanical AVR (aortic valve replace ment) (Primary Dx); Encounter for consultation; Acute post-operative pain; Hypoxemia; Leukocytosis, unspecified type; Severe obesity (BMI >= 40) ([facility]) 12/01/2019 [facility] - Encounter [id number] [facility] 12/07/2019 [place], [place] [id number] Social History Date Tobacco Use Types Packs/Day [...] 12/01/2019 7:00 AM CDT Body Mass Index documented in this encounter Discharge Instructions * Pre-Procedure Instructions* Poppy Heart, RN - 11/28/2019 10:15 AM CDT Pre/post op teaching completed per yessica-operative teaching protocol including He fifi Hugger, arterial line and IS. Patient verbalized understanding. All question s answered. Pt. verbalized understanding of arrival date/time, skin prep, medica tions to take day of surgery. [facility] patient Emiliano espana education has been offer ed to patient. Current visitor guidelines reviewed with patient including: ? One visitor may accompany patient morning of procedure ? Visitors will be screened upon entry to the hospital-temp< 100F, travel questions ? While in waiting room-must be prescribed 6 ft. distance from another individua l ? Surgeon will speak with visitor after surgery/procedure ? After initial post op visit, individual must leave and will not be able to vis it during the hospital stay. ? Parking entrance at either the [facility]([address] Entrance 4, with cell support operator parking or at at the [facility], Entrance 1. Screeners will be locate d at both entrances. Patient verbalized understanding of above guidelines. Current Outpatient Medications Medication Sig Note: LORazepam (ATIVAN) 0.5 MG tablet Take 0.5 mg by mouth every 6 (six) hours as needed for anxiety. Note: metoprolol succinate (TOPROL-XL) 200 MG 24 hr tablet Take 200 mg by mouth ev ronnie evening. Note:takes at night documented in this encounter Medications at Time of Discharge Start Date End Date Medication Sig Dispensed Refills 12/08/2019 aspirin 81 MG chewable Chew 1 tablet 0 tablet (81 mg total) daily. 12/07/2019 gabapentin (NEURONTIN) Take 1 30 capsule 0 300 MG capsule capsule (300 mg total) by mouth 3 (three) times a day. 12/08/2019 Lidocaine (LIDODERM) 5 % Place 1 patch 5 patch 0 patch on the skin daily. Remove & Discard patch within 12 hours or as directed by LORazepam (ATIVAN) 0.5 MG Take 0.5 mg 0 tablet by mouth every 6 (six) hours as needed for anxiety. metoprolol succinate Take 200 mg 0 (TOPROL-XL) 200 MG 24 hr by mouth tablet every evening. 12/07/2019 oxyCODONE (ROXICODONE) 5 Take 1-2 40 tablet 0 MG immediate release tablets (5-10 tablet mg total) by mouth every 6 (six) hours as needed. Max Daily Dose: 40 mg 12/07/2019 warfarin (COUMADIN) 1 MG Take 1 tablet 30 tablet 0 tablet (1 mg total) by mouth take as directed. Take as directed by INR 12/07/2019 warfarin (COUMADIN) 10 MG Take 1 tablet 30 tablet 0 tablet (10 mg total) by mouth every evening. documented as of this encounter Progress Notes * Margo Wayne RN ANP - 12/07/2019 7:14 AM CDT [facility] Cardiothoracic and Vascular POST-OP Progress Note Date: 12/07/2019 POD #6 Mechanical AVR ([facility]) Surgeon: Guillermo Subjective: no complaints this am, off oxygen, HR controlled Vitals: Vitals: 12/07/19 0354 12/07/19517 BP: 93/74 Pulse: 99 Resp: 16 Temp: 37.1 C (98.7 F) SpO2: 92% Weight: (!) 137.7 kg (303 lb 9.6 oz) Height: Labs: Last 3 CBC Results (within last 7 days): Most Recent Result within the last 7 days Lab Units 12/06/19 0031 12/04/19 0115 12/03/19 0125 WBC TH/uL 9.27 17.48* 17.05* HEMOGLOBIN g/dL 10.5* 11.2* 12.5* HEMATOCRIT % 30* 31* 36* PLATELET COUNT TH/uL 213 146 160 Last 3 BMP Results (within the last 7 days): Most Recent Result within the last 7 days Lab Units 12/06/19 0031 12/05/19 0045 12/04/19 0115 12/03/19 0125 SODIUM MEQ/L 134 -- 129* 129* POTASSIUM MEQ/L 3.6 3.7 3.5 4.0 CHLORIDE MEQ/L 98 -- 94* 97 CARBON DIOXIDE MEQ/L 31 -- 30 27 BLOOD UREA NITROGEN mg/dL 16 -- 12 11 CREATININE mg/dL 0.8 -- 0.7 0.7 GLUCOSE mg/dL 111* -- 114* 118* CALCIUM mg/dL 8.7 -- 8.1* 8.0* INR: Most Recent Result within the last 7 days Lab Units 12/07/19 0226 INR 1.9* Cultures: n/a ABx: n/a Weight on Admission: Weight: (!) 140.7 kg (310 lb 3 oz) Weight Trend: Vitals: 12/04/19 0335 12/05/19 0330 12/06/19 0334 12/07/19517 Weight: (!) 138.8 kg (306 lb) (!) 137 kg (302 lb) (!) 137.3 kg (302 lb 11.2 oz) (!) 137.7 kg (303 lb 9.6 oz) Diuretics: None currently ordered Intake/Output Summary (Last 24 hours) at 12/07/2019 0715 Last data filed at 12/07/2019 0518 Gross per 24 hour Intake 1340 ml Output 2250 ml Net -910 ml Urine: I/O last 24 Hours: In: - Out: 1250 [Urine:1250] Chest Tube: removed Tele: ST Physical Exam: General Appearance: Well developed, no acute distress, appears stated age, si tting up in chair Resp: Clear, non-labored, no wheezing, on RA Cardiac: Regular rate and rhythm, no murmurs, gallops or rubs. No edema. Normal pulses throughout GI: Soft, active bowel sounds, non-tender, non-distended Extremeties No edema, FROM Incision: Clean, dry, and intact. Assessment/Plan: 1. POD 6 Mechanical AVR 2. Bicuspid aortic valve with severe stenosis s/p #1 3. Ascending aorta dilatation - 4.4cm on CT 4. Hx VT s/p ablation 10/2018 - follows with Dr. Medina in [place], [place] 5. Obesity 6. Chronic anticoagulation - on warfarin - goal INR 2.0-3.0 7. Expected acute pain 8. Hyponatremia 9. Leukocytosis 10. Tachycardia- resolved, back on Toprol XL 100 mg bid Plan: INR is 1.9 today. Plan to discharge. PPE Statement: Margo Wayne RN ANP and Dr Brown used Yellow precautions (L evel 1 mask worn over level 3 mask and gloves) during the patient encounter. Margo Wayne ANP-C 12/07/2019 7:15 AM * Kristen Cox - 12/06/2019 11:50 AM CDT Patient completed ambulation in hallway with workplace rehabilitation officer/mobility team unde r direction of nursing staff. * Margo Wayne RN ANP - 12/06/2019 7:25 AM CDT [facility] Cardiothoracic and Vascular POST-OP Progress Note Date: 12/06/2019 POD #5 Mechanical AVR ([facility]) Surgeon: Li Subjective: no complaints this am, off oxygen, HR controlled Vitals: Vitals: 12/05/19 2324 12/06/19 0334 BP: 103/58 112/58 Pulse: 101 101 Resp: 18 18 Temp: 37.1 C (98.8 F) 36.9 C (98.4 F) SpO2: 90% 90% Weight: (!) 137.3 kg (302 lb 11.2 oz) Height: Labs: Last 3 CBC Results (within last 7 days): Most Recent Result within the last 7 days Lab Units 12/06/19 0031 12/04/19 0115 12/03/19 0125 WBC TH/uL 9.27 17.48* 17.05* HEMOGLOBIN g/dL 10.5* 11.2* 12.5* HEMATOCRIT % 30* 31* 36* PLATELET COUNT TH/uL 213 146 160 Last 3 BMP Results (within the last 7 days): Most Recent Result within the last 7 days Lab Units 12/06/19 0031 12/05/19 0045 12/04/19 0115 12/03/19 0125 SODIUM MEQ/L 134 -- 129* 129* POTASSIUM MEQ/L 3.6 3.7 3.5 4.0 CHLORIDE MEQ/L 98 -- 94* 97 CARBON DIOXIDE MEQ/L 31 -- 30 27 BLOOD UREA NITROGEN mg/dL 16 -- 12 11 CREATININE mg/dL 0.8 -- 0.7 0.7 GLUCOSE mg/dL 111* -- 114* 118* CALCIUM mg/dL 8.7 -- 8.1* 8.0* INR: Most Recent Result within the last 7 days Lab Units 12/06/19 003 INR 1.5* Cultures: n/a ABx: n/a Weight on Admission: Weight: (!) 140.7 kg (310 lb 3 oz) Weight Trend: Vitals: 12/03/19 1039 12/04/19 0335 12/05/19 03312/06/19 033 Weight: (!) 140.8 kg (310 lb 8 oz) (!) 138.8 kg (306 lb) (!) 137 kg (302 lb) (!) 137.3 kg (302 lb 11.2 oz) Diuretics: None currently ordered Intake/Output Summary (Last 24 hours) at 12/06/2019 0725 Last data filed at 12/06/2019 0400 Gross per 24 hour Intake 990 ml Output 1175 ml Net -185 ml Urine: I/O last 24 Hours: In: 240 [P.O.:240] Out: 825 [Urine:825] Chest Tube: removed Tele: ST Physical Exam: General Appearance: Well developed, no acute distress, appears stated age, si tting up in chair Resp: Clear, non-labored, no wheezing, on RA Cardiac: Regular rate and rhythm, no murmurs, gallops or rubs. No edema. Normal pulses throughout GI: Soft, active bowel sounds, non-tender, non-distended Extremeties No edema, FROM Incision: Clean, dry, and intact. Assessment/Plan: 1. POD 5 Mechanical AVR 2. Bicuspid aortic valve with severe stenosis s/p #1 3. Ascending aorta dilatation - 4.4cm on CT 4. Hx VT s/p ablation 10/2018 - follows with Dr. Medina in [place], [place] 5. Obesity 6. Chronic anticoagulation - on warfarin - goal INR 2.0-3.0 7. Expected acute pain 8. Hyponatremia 9. Leukocytosis 10. Tachycardia- resolved, back on Toprol XL 100 mg bid Plan: He is progressing well and ready for discharge when his INR bumps. Repeat 10 mg of Coumadin tonight, anticipate discharge in am. Will increase Toprol XL t o 200 mg nightly which is his home dose tonight. PPE Statement: Margo Wayne RN ANP and Dr Brown used Yellow precautions (L evel 1 mask worn over level 3 mask and gloves) during the patient encounter. Margo KOWALSKIC 12/06/2019 7:25 AM * Kristen Cox - 12/05/2019 1:45 PM CDT Patient completed ambulation in hallway with workplace rehabilitation officer/mobility team unde r direction of nursing staff. * Alisia Chaparro NP - 12/05/2019 6:34 AM CDT [facility] Cardiothoracic and Vascular POST-OP Progress Note Date: 12/05/2019 POD #4 Mechanical AVR ([facility]) Surgeon: Guillermo Subjective: 100.4 temp overnight. No other acute events. Feels achy. C/o abdomin al cramping. States back hurts from chair/bed Vitals: Vitals: 12/04/19 2328 12/05/19 0330 BP: 96/54 120/57 Pulse: (!) 106 (!) 107 Resp: 18 16 Temp: 37.1 C (98.7 F) 37.2 C (99 F) SpO2: 93% 91% Weight: (!) 137 kg (302 lb) Height: Labs: Last 3 CBC Results (within last 7 days): Most Recent Result within the last 7 days Lab Units 12/04/19 01112/03/1912412/01/19 2351 WBC TH/uL 17.48* 17.05* 20.22* HEMOGLOBIN g/dL 11.2* 12.5* 14.0 HEMATOCRIT % 31* 36* 39* PLATELET COUNT TH/uL 146 160 175 Last 3 BMP Results (within the last 7 days): Most Recent Result within the last 7 days Lab Units 12/05/19 0045 12/04/19 0115 12/03/1912412/01/19 2351 SODIUM MEQ/L -- 129* 129* -- 134 POTASSIUM MEQ/L 3.7 3.5 4.0 < > 4.3 CHLORIDE MEQ/L -- 94* 97 -- 104 CARBON DIOXIDE MEQ/L -- 30 27 -- 25 BLOOD UREA NITROGEN mg/dL -- 12 11 -- 12 CREATININE mg/dL -- 0.7 0.7 -- 0.6 GLUCOSE mg/dL -- 114* 118* -- 151* CALCIUM mg/dL -- 8.1* 8.0* -- 7.9* < > = values in this interval not displayed. INR: Most Recent Result within the last 7 days Lab Units 12/05/1944 INR 1.4* Cultures: n/a ABx: n/a Weight on Admission: Weight: (!) 140.7 kg (310 lb 3 oz) Weight Trend: Vitals: 12/02/19 0400 12/03/19 1039 12/04/19 0335 12/05/19 0330 Weight: (!) 141.4 kg (311 lb 11.7 oz) (!) 140.8 kg (310 lb 8 oz) (!) 138.8 kg (3 06 lb) (!) 137 kg (302 lb) Diuretics: None currently ordered Intake/Output Summary (Last 24 hours) at 12/05/2019 0634 Last data filed at 12/05/2019 0213 Gross per 24 hour Intake 500 ml Output 700 ml Net -200 ml Urine: I/O last 24 Hours: In: 500 [P.O.:480; I.V.:20] Out: 700 [Urine:700] Chest Tube: removed Tele: ST Physical Exam: General Appearance: Well developed, no acute distress, appears stated age, si tting up in chair Resp: Clear, non-labored, no wheezing, on RA Cardiac: Regular rate and rhythm, no murmurs, gallops or rubs. No edema. Normal pulses throughout GI: Soft, active bowel sounds, non-tender, non-distended Extremeties No edema, FROM Incision: Clean, dry, and intact. Assessment/Plan: 1. POD 4 Mechanical AVR 2. Bicuspid aortic valve with severe stenosis s/p #1 3. Ascending aorta dilatation - 4.4cm on CT 4. Hx VT s/p ablation 10/2018 - follows with Dr. Medina in [place], [place] 5. Obesity 6. Chronic anticoagulation - on warfarin - goal INR 2.0-3.0 7. Expected acute pain 8. Hyponatremia 9. Leukocytosis 10. Tachycardia Increase activity, encourage IS, PT Lovenox for DVT prophylaxis (january d/c when INR >=2) INR 1.4, 7.5mg tonight 1500mL fluid restriction Pain control - PRN oxy, dilaudid, toradol Discharge planning PPE Statement: Alisia Chaparro NP used Yellow precautions (Level 1 mask worn ove r level 3 mask and gloves) during the patient encounter. Alisia Chaparro AGNP-C 12/05/2019 6:34 AM * Fifi Bach, GLOVE CUFFER - 12/04/2019 6:10 AM CDT [facility] Cardiothoracic and Vascular POST-OP Progress Note Date: 12/04/2019 POD #3 mechanical AVR Surgeon: Guillermo Subjective: Denies pain, shortness of breath and cough. Walked a little yesterda y. + BM. Vitals: Vitals: 12/04/19 0335 12/04/19 0600 BP: 115/69 Pulse: Resp: Temp: SpO2: Weight: (!) 138.8 kg (306 lb) Height: Labs: Last 3 CBC Results (within last 7 days): Most Recent Result within the last 7 days Lab Units 12/04/1911412/03/195 12/01/19 2351 WBC TH/uL 17.48* 17.05* 20.22* HEMOGLOBIN g/dL 11.2* 12.5* 14.0 HEMATOCRIT % 31* 36* 39* PLATELET COUNT TH/uL 146 160 175 Last 3 BMP Results (within the last 7 days): Most Recent Result within the last 7 days Lab Units 12/04/19 0115 12/03/19 0125 12/02/19 1149 12/01/19 2351 SODIUM MEQ/L 129* 129* -- -- 134 POTASSIUM MEQ/L 3.5 4.0 4.4 < > 4.3 CHLORIDE MEQ/L 94* 97 -- -- 104 CARBON DIOXIDE MEQ/L 30 27 -- -- 25 BLOOD UREA NITROGEN mg/dL 12 11 -- -- 12 CREATININE mg/dL 0.7 0.7 -- -- 0.6 GLUCOSE mg/dL 114* 118* -- -- 151* CALCIUM mg/dL 8.1* 8.0* -- -- 7.9* < > = values in this interval not displayed. INR: Most Recent Result within the last 7 days Lab Units 12/04/19114 INR 1.2 Cultures: n/a ABx: no Weight on Admission: Weight: (!) 140.7 kg (310 lb 3 oz) Weight Trend: Vitals: 12/01/19 0700 12/02/19 0400 12/03/19 1039 12/04/19 0335 Weight: (!) 140.7 kg (310 lb 3 oz) (!) 141.4 kg (311 lb 11.7 oz) (!) 140.8 kg (3 10 lb 8 oz) (!) 138.8 kg (306 lb) Diuretics: Yes, additional 40 mg IV Lasix today Intake/Output Summary (Last 24 hours) at 12/04/2019 0611 Last data filed at 12/04/2019 0600 Gross per 24 hour Intake 1850 ml Output 2345 ml Net -495 ml Urine: 2345 mL/ 24h Chest Tube: DC'd in ICU Physical Exam: General Appearance: Well developed, no acute distress, appears stated age Resp: Clear, non-labored, no wheezing. Mildly diminished left base. Cardiac: Regular rate and rhythm, no murmurs, gallops or rubs. Brisk mechanica l click. No edema. No jugular venous distension. Normal pulses throughout without carotid bruit. No LE varicosities GI: Obese, Soft, active bowel sounds, non-tender, non-distended, no h epatomegaly Extremities No edema, FROM. Bilateral radial, DP and PT pulses are 2+. Incision: Sternal incision C/D/I with mild ecchymosis. Chest tube exit sites with sutures intact. Assessment/Plan: 1. Symptomatic severe aortic stenosis, s/p mechanical AVR, POD 3. Ascending aort a 4.[address]s, pacing wires removed in ICU. INR 1.2 (1.1). Received 3 mg w arfarin 12/01, 7.5 mg 12/02, repeat 7.5 mg tonight. Started on low dose metoprolol 11/03, increased yesterday and again this am for tachycardia. On 3L O2. Continue b reathing txs, flutter valve. I.S.encouraged. Continue to increase diet, activi ty as tolerated. POD 3 CXR pending. 2. Tachycardia. Increase metoprolol to 50 mg BID. EKG shows sinus tach, no rub o n exam. On Toprol XL 200 mg q evening at home. Up-titrate as tolerated. 3. Hx VT s/p ablation. Follows with Dr. Medina in [place], [place]. 4. Post operative pain, expected. Received 2 doses Toradol yesterday. Prn oxycod one, APAP, scheduled Neurontin. 5. Hyponatremia. Na 129 again. Monitor. Home when O2 weaned, INR therapeutic. Lives in [place], [place]. PPE Statement: MARIA A العراقي and Dr. Lemus used Yellow precautions (Level 3 mask and gloves) during the patient encounter. Fifi Isreal 12/04/2019 6:11 AM Making progress, but slowly. Still on O2. He can hear his valve clicking. CXR ok except for volume loss at left base. INR hasn't yet bumped. Home in or so. * Ashlyn Peña RN - 12/03/2019 10:25 AM CDT AVR 12/01/19. Spoke with patient about the benefits of Outpatient Cardiac Rehab. Stated he is interested in attending at [facility] in [place], [place]. Given jn galvan from program. I will fax his contact information and order to the program for follow-up with him at home. * Fifi Bach FNP - 12/03/2019 6:15 AM CDT [facility] Cardiothoracic and Vascular POST-OP Progress Note Date: 12/03/2019 POD #2 mechanical AVR Surgeon: Guilelrmo Subjective: Pain is well controlled this morning. Eating a little, no flatus yet . I.S. to 1000 mL Vitals: Vitals: 12/02/19 2337 12/03/19 0345 BP: 132/77 123/80 Pulse: (!) 107 (!) 116 Resp: 22 22 Temp: 37.4 C (99.4 F) 36.8 C (98.2 F) SpO2: 90% 93% Weight: Height: Labs: Last 3 CBC Results (within last 7 days): Most Recent Result within the last 7 days Lab Units 12/03/19 0125 12/01/19 2351 WBC TH/uL 17.05* 20.22* HEMOGLOBIN g/dL 12.5* 14.0 HEMATOCRIT % 36* 39* PLATELET COUNT TH/uL 160 175 Last 3 BMP Results (within the last 7 days): Most Recent Result within the last 7 days Lab Units 12/03/19 0125 12/02/19 1149 12/02/19 0658 12/01/19 2351 SODIUM MEQ/L 129* -- -- 134 POTASSIUM MEQ/L 4.0 4.4 3.8 4.3 CHLORIDE MEQ/L 97 -- -- 104 CARBON DIOXIDE MEQ/L 27 -- -- 25 BLOOD UREA NITROGEN mg/dL 11 -- -- 12 CREATININE mg/dL 0.7 -- -- 0.6 GLUCOSE mg/dL 118* -- -- 151* CALCIUM mg/dL 8.0* -- -- 7.9* INR: Most Recent Result within the last 7 days Lab Units 12/03/19 0125 INR 1.1 Cultures: n/a ABx: no Weight on Admission: Weight: (!) 140.7 kg (310 lb 3 oz) Weight Trend: Vitals: 12/01/19 0700 12/02/19 0400 Weight: (!) 140.7 kg (310 lb 3 oz) (!) 141.4 kg (311 lb 11.7 oz) Diuretics: Yes, additional 40 mg IV Lasix today Intake/Output Summary (Last 24 hours) at 12/03/2019 0619 Last data filed at 12/03/2019 0538 Gross per 24 hour Intake 1569.89 ml Output 3165 ml Net -1595.11 ml Urine: 3000 mL/ 24h Chest Tube: DC'd in ICU Physical Exam: General Appearance: Well developed, no acute distress, appears stated age Resp: Clear, non-labored, no wheezing. Diminished bilateral bases. Cardiac: Regular rate and rhythm, no murmurs, gallops or rubs. Brisk mechanica l click. No edema. No jugular venous distension. Normal pulses throughout without carotid bruit. No LE varicosities GI: Obese, Soft, active bowel sounds, non-tender, non-distended, no h epatomegaly Extremities No edema, FROM. Bilateral radial, DP and PT pulses are 2+. Incision: Dressings removed from sternal incision and chest tube exit sites. S ternal incision C/D/I. Chest tube exit sites with sutures intact. Assessment/Plan: 1. Symptomatic severe aortic stenosis, s/p mechanical AVR, POD 2. Ascending aort a 4.[address]s, pacing wires removed in ICU. INR 1.1. Received 3 mg warfari n 12/01. Increase dose. Started on low dose metoprolol 12/01. On 3L O2, diminished breath sounds. Schedule breathing txs, flutter valve. I.S.encouraged. Will give additional 40 mg Lasix today. Continue to increase diet, activity as tolerate d. 2. Hx VT s/p ablation. 3. Post operative pain, expected. Received 2 doses Toradol yesterday. Prn oxycod one, APAP, scheduled Neurontin. 4. Hyponatremia. Na 129. Monitor. PPE Statement: MARIA A العراقي and Dr. Brown used Yellow precautions (Level 3 mask and gloves) during the patient encounter. Fifi Bach 12/03/2019 6:19 AM * Reuben Li MD - 12/02/2019 7:04 AM CDT Sitting up. Extubated and breathing easily. Pain control fair--try toradol. N SR. Excellent hemodynamics on no drips. Good UO. Low volume CT output- tubes a nd wires out. CXR ok except for large gastric bubble. Doing great. Out of ICU. Start warfarin. * Palma Ramírez NP - 12/02/2019 5:40 AM CDT Critical Care Progress Note PATIENT NAME: Trupti Juarez DATE of SERVICE: 12/02/2019 CPI: [id number] AGE: 34 y.o. : 1985 DATE OF SURGERY: 12/01/2019 PATIENT DESCRIPTION: Mr. Juarez is a 34 year old with bicuspid aortic valve with s evere stenosis, ascending aortic aneurysm and VT s/p ablation in 10/2018. ECHO fr om 06/2019 showed EF of 60-65%, bicuspid AV with severe stenosis, and ascending aorta measuring 5.0 cm. Cardiac cath showed normal coronary arteries. He is now s/p mechanical AVR by Dr. Li. 12/01: Remains in CVICU, off pressors PAST MEDICAL HISTORY: Past Medical History: Diagnosis Date Anxiety Aortic stenosis due to bicuspid aortic valve Mean AoV gradient 45 07/22 Ascending aorta dilatation (HCC) 06/2019 5.0 cm ascending aorta; 3.5 cm at sinuses of Valsalva Depression Morbid obesity (HCC) VT (ventricular tachycardia) ([facility]) 05/2018 with aberrancy PAST SURGICAL HISTORY: Past Surgical History: Procedure Laterality Date CARDIAC CATHETERIZATION 05/21/2018 normal cors. dilated ascending aorta (47 mm in diameter) CARDIAC CATHETERIZATION 07/10/2019 Performed in [place]. Normal ccoronaries. ELECTROPHYSIOLOGY STUDY POSSIBLE RFA OF SVT 10/2018 Performed at [facility] (AVNRT ablation of slow pathway) IMPLANTABLE LOOP RECORDER PLACEMENT Performed in [place], [place] RIGHT HEART CATHETERIZATION 07/10/2019 Performed in [place]. RA 14 RV 37/14 PA 39/13/28 PCWP 19 TDCO/CI 6.2/2.4Fick CO /CI 6.2/2.4 PVR 1.5 TONSILLECTOMY ALLERGIES: Hydrocodone PRIOR TO ADMISSION MEDICATIONS: Medications Prior to Admission Medication Sig Dispense Refill Last Dose LORazepam (ATIVAN) 0.5 MG tablet Take 0.5 mg by mouth every 6 (six) hours as needed for anxiety. More than a month at Unknown time metoprolol succinate (TOPROL-XL) 200 MG 24 hr tablet Take 200 mg by mouth ev ronnie evening. 11/30/2019 at 2300 ECHOCARDIOGRAPHY: Intraop ISABELLA pending 24-HOUR HISTORY/EVENTS OF NOTE: Transferred from the CVOR to the CVICU intubated and sedated on propofol, TXA, i nsulin, norepinephrine paused. Intra-op received 1500 CS, 1250 crystalloid. Init ial CI 1.4. Gave albumin 500 ml. CI 2.0. Hydralazine 10-20 mg q4 hr SBP >140. K 5.4 > 4.9. Extubated to 9L and 4L NC. Overnight, pain ladder with oxycodone, tylenol, gabapentin, and Lidoderm patch. CI 3.3, 3.4. HOME HEALTH MANAGER 390. ROS: 10 points reviewed and found positive except as noted in the HPI, or below: Cons t: Tiredness Eyes: Negative ENMT: Negative Pulm: Shortness of breath and Uses oxygen CV: Chest pain/pressure GI: Nausea Neuro: Negative Psych: Negative PHYSICAL EXAM: Vitals: BP (!) 154/79 (BP Location: Right arm, Patient position: Supine) | Pulse (!) 10 6 | Temp 37.7 C (99.9 F) | Resp 22 | Ht 1.803 m (5' 11") | Wt (!) 141.4 kg (311 lb 11.7 oz) | SpO2 93% | BMI 43.48 kg/m Respiratory Support: O2 Device: High flow nasal cannula O2 Flow Rate (L/min): 4 L/min T-High: Temp (24hrs), Av.4 C (99.4 F), Min:36.8 C (98.3 F), Max:37.9 C (10 0.2 F) Fluid Balance: I/O last 24 Hours: In: 3455.3 [P.O.:100; I.V.:1215.5; Blood:1500; IV Piggyback:639.8] Out: 2780 [Urine:2420; Drains:360] BP (!) 154/79 (BP Location: Right arm, Patient position: Supine) | Pulse (!) 10 6 | Temp 37.7 C (99.9 F) | Resp 22 | Ht 1.803 m (5' 11") | Wt (!) 141.4 kg (311 lb 11.7 oz) | SpO2 93% | BMI 43.48 kg/m General Appearance: Sitting up in bed, NAD Neurologic: A&O x3, no focal deficits HEENT: AT/NC, RIJ PA cath, symmetrical, trachea midline Respiratory: Airway: Not Intubated Lungs: Bilateral breath sounds Heart: SR 90s, S1 and S2 normal. AV wires present. Abdomen: Soft, obese, non-tender, BS present Genitourinary: Chang for accurate I/Os Extremities: Extremities normal, no edema Pulses/Perfusion: 2+ pulses radial and dorsalis pedis, warm and well perfused Skin: No rashes or lesions Invasive Lines: PA Catheter right IJ Introducer right IJ Arterial Line left Radial Chest Tubes/Drains: CT x2 no air leak Surgical Site: Midline incision clean, dry, and intact Exam copied from previous note and updated appropriately based on today's exam, Palma Ramírez NP LAB RESULTS: Most Recent Result from last 24 hours Lab Units 12/01/19 2351 WBC TH/uL 20.22* HEMOGLOBIN g/dL 14.0 HEMATOCRIT % 39* PLATELET COUNT TH/uL 175 Most Recent Result from last 24 hours Lab Units 12/01/19 2351 SODIUM MEQ/L 134 POTASSIUM MEQ/L 4.3 CHLORIDE MEQ/L 104 CARBON DIOXIDE MEQ/L 25 BLOOD UREA NITROGEN mg/dL 12 CREATININE mg/dL 0.6 GLUCOSE mg/dL 151* CALCIUM mg/dL 7.9* Most Recent Result from last 24 hours Lab Units 12/01/19 2351 GLUCOSE mg/dL 151* No lab components to display Most Recent Result from last 24 hours Lab Units 12/01/19 1400 INR 1.1 ABG: Most Recent Result within the last 7 days Lab Units 12/01/19 1051 PH ARTERIAL units 7.31* PCO2 ARTERIAL mm Hg 41 PO2 ARTERIAL mm Hg 177* BICARBONATE MEQ/L 20.6 SvO2: none Cultures: None RADIOLOGY/IMAGING: CXR 12/01: per my read, wide mediastinum and mild pulmonary edema, unchanged from previous MEDICATIONS: acetaminophen, 650 mg, Q6H Or acetaminophen, 650 mg, Q6H Or acetaminophen, 325 mg, Q6H aspirin, 81 mg, Daily enoxaparin, 40 mg, Q12H JESENIA famotidine, 20 mg, BID Or famotidine, 20 mg, BID gabapentin, 100 mg, TID insulin lispro, 1-15 Units, TID PC lidocaine (cardiac) (pf), 1 mg/kg, See Admin Instructions Lidocaine, 1 patch, Daily metoprolol tartrate, 12.5 mg, BID polyethylene glycol, 17 g, Daily senna-docusate, 2 tablet, BID warfarin, 3 mg, QPM INFUSIONS: insulin (humuLIN R) infusion 3 Units/hr (12/01/192001) sodium chloride 25 mL/hr (12/01/19 1302) OTHER: Diet: Regular diet GI Prophylaxis: Pepcid DVT Prophylaxis: SCDs and Pharmacologic: Low Molecular Weight Heparin Prophylac tic PT/OT/ST: None DIAGNOSIS: Neuro: Acute post op pain CV: Bicuspid aortic valve with severe s/p AVR (mechanical) Ascending aortic aneurysm Low CI, resolved Hypertension VT s/p ablation (2019) Pulm: Hypoxemia HEME: Leukocytosis Renal: Hyperkalemia, resolved ENDO: Blood glucose controlled on insulin PLAN: Metoprolol 12.5mg PO BID Lasix 20 mg IV x 1 Lovenox 40 mg SQ every 12 hrs D/C PAC, AL and chang Warfarin 3 mg tonight Toradol 30 mg IV x 2 doses D/C chest tubes and pacing wires Wean oxygen for Sp02 >90% Aggressive IS OOBTC Stop insulin infusion SSI ADAT Remove introducer prior to transfer CBC, BMP in AM PPE Statement: Palma Ramírez NP used Yellow precautions (Level 3 mask and gloves ) during the patient encounter. During multidisciplinary rounds, I personally reviewed the patient events of the previous 24 hours, physical exam, laboratory findings, radiologic studies inclu ding images, fluid balance, neurologic status, cardiovascular status including i nvasive monitoring data, pulmonary status, metabolic status including nutrition, and medications. Trupti Yuly Francois is s/p AVR. Start BB today as tolerates. Started p ain ladder overnight for uncontrolled pain, add tordadol x 2 doses today. Mechan ical valve, warfarin for INR goal 2-3. Minimal chest tube bleeding, discontinue CT's and wires, per Dr. Li recommendations. Discussed POC. Education on pain control, IS and early mobility, treatment goals, and plan of c are were discussed and mutually agreed upon with patient/family. I personally reviewed the following images: CXR IPalma NP, have reviewed all of these findings and the overall assessm ent and plans for the day are discussed and documented in the Medical Record Not e. I was personally present and involved in all aspects of patient care. Level 3 Palma Ramírez NP 12/02/2019 5:40 AM * Naila Gudino, TALYA - 12/01/2019 3:47 PM CDT Respiratory Care Services Initial RATE Note 12/01/2019 3:47 PM A RATE assessment and treatement plan was performed on Trupti Juarez, : [birth year] The primary Pulmonary/Respiratory related diagnosis for assessment on this admis eduarda is: Post-Op History: The patient has a self-maintained airway. Home Therapy Review: Home medication was validated in the under Prior to Admission Medications activi ty. Patient/Patient's family was not able to describe current use. The patient states he does not use oxygen at home. The patient states he does not use assistive ventilatory support devices at home . The patient states he does not use other home therapies: Previous Pulmonary Function or Spirometry testing: Patient has not had testing. Social History Review: The patient reports that he has been smoking cigarettes. He has a 22.50 pack-ye ar smoking history. He has never used smokeless tobacco. Ready to quit: Not Answered Counseling given: Not Answered Physical Assessment: Pulse: 93 Resp: 11 SpO2: 97 % O2 Flow Rate (L/min): 7 L/min No data recorded Lung Assessment: Respiratory (WDL): X (*WDL=Within Defined Limits; X=Exceptions to WDL) Respiratory Pattern: Respiratory Pattern: Shallow Chest Assessment: Chest Assessment: Chest expansion symmetrical Breath Sounds: Bilateral Breath Sounds: Coarse Cough Effort: Cough: Productive;Ineffective;Weak Secretions: No data recorded, No data recorded, No data recorded The operating protocol was initiated based on the RATE Consult physician order. Based on the patient's history and current physical assessment, the patient mark ts criteria for the following treatment plan(s): Treatment Plan The treatment plan identified for the patient is as follows: Oxygen Therapy Protocol: Oxygen Therapy Criteria for Service: Immediate Post Recovery Intervention: Titrate Oxygen Expected Outcome: Maintain SpO2 Order/Plan Summary Place on oxygen post extubation per cvicu protocal Based on the RATE Criteria being met, the following RATE Protocols will be used: RATE Operating Medical Protocol RATE Adult Oxygen Therapy Medical Protocol * Renea Morales PA - 12/01/2019 12:25 PM CDT Critical Care Progress Note PATIENT NAME: Trupti Juarez DATE of SERVICE: 12/01/2019 CPI: [id number] AGE: 34 y.o. : 1985 DATE OF SURGERY: 12/01/2019 PATIENT DESCRIPTION: Mr. Juarez is a 34yo with bicuspid aortic valve with severe s tenosis, ascending aortic aneurysm and VT s/p ablation in 10/2018. ECHO from 06/04 019 showed EF of 60-65%, bicuspid AV with severe stenosis, and ascending aorta m easuring 5.0 cm. Cardiac cath showed normal coronary arteries. He is now s/p mec hanical AVR with Dr. Li. PAST MEDICAL HISTORY: Past Medical History: Diagnosis Date Anxiety Aortic stenosis due to bicuspid aortic valve Mean AoV gradient 45 07/22 Ascending aorta dilatation (HCC) 06/2019 5.0 cm ascending aorta; 3.5 cm at sinuses of Valsalva Depression Morbid obesity (HCC) VT (ventricular tachycardia) ([facility]) 05/2018 with aberrancy PAST SURGICAL HISTORY: Past Surgical History: Procedure Laterality Date CARDIAC CATHETERIZATION 05/21/2018 normal cors. dilated ascending aorta (47 mm in diameter) CARDIAC CATHETERIZATION 07/10/2019 Performed in [place]. Normal ccoronaries. ELECTROPHYSIOLOGY STUDY POSSIBLE RFA OF SVT 10/2018 Performed at [facility] (AVNRT ablation of slow pathway) IMPLANTABLE LOOP RECORDER PLACEMENT Performed in [place], [place] RIGHT HEART CATHETERIZATION 07/10/2019 Performed in [place]. RA 14 RV 37/14 PA 39/13/28 PCWP 19 TDCO/CI 6.2/2.4Fick CO /CI 6.2/2.4 PVR 1.5 TONSILLECTOMY ALLERGIES: Hydrocodone PRIOR TO ADMISSION MEDICATIONS: Medications Prior to Admission Medication Sig Dispense Refill Last Dose LORazepam (ATIVAN) 0.5 MG tablet Take 0.5 mg by mouth every 6 (six) hours as needed for anxiety. More than a month at Unknown time metoprolol succinate (TOPROL-XL) 200 MG 24 hr tablet Take 200 mg by mouth ev ronnie evening. 11/30/2019 at 2300 ECHOCARDIOGRAPHY: Intraop ISABELLA pending 24-HOUR HISTORY/EVENTS OF NOTE: Arrived from the CVOR to the CVICU intubated and sedated on propofol, TXA, insul in, norepinephrine paused. Intra-op received 1500 CS, 1250 crystalloid. Initial CI 1.4. ROS: ROS unobtainable because intubated/sedated PHYSICAL EXAM: Vitals: BP (!) 154/79 (BP Location: Right arm, Patient position: Supine) | Pulse 92 | Temp 37.1 C (98.8 F) (Bladder) | Resp 22 | Ht 1.803 m (5' 11") | Wt (!) 1 40.7 kg (310 lb 3 oz) | SpO2 96% | BMI 43.26 kg/m Respiratory Support: CMV 60%, PEEP 5 T-High: Temp (24hrs), Av C (98.6 F), Min:36.8 C (98.3 F), Max:37.1 C (98.8 F) Fluid Balance: I/O last 24 Hours: In: 2708 [I.V.:1170; Blood:1500; IV Piggyback:38] Out: 560 [Urine:560] BP (!) 154/79 (BP Location: Right arm, Patient position: Supine) | Pulse 92 | Temp 37.1 C (98.8 F) (Bladder) | Resp 22 | Ht 1.803 m (5' 11") | Wt (!) 1 40.7 kg (310 lb 3 oz) | SpO2 96% | BMI 43.26 kg/m General Appearance: Lying in bed, intubated and sedated Neurologic: PERRL, exam limited by sedation HEENT: Neck supple, symmetrical, trachea midline Respiratory: Airway: Intubated Lungs: Bilateral breath sounds Heart: SR 80s, S1 and S2 normal. A and V wires present. Abdomen: Soft, non-tender Genitourinary: Chang for accurate I/Os Extremities: Extremities normal, no edema Pulses/Perfusion: 2+ pulses radial and dorsalis pedis, warm and well perfused Skin: No rashes or lesions Invasive Lines: PA Catheter right IJ Introducer right IJ Arterial Line left Radial Chest Tubes/Drains: CT x2 Surgical Site: Midline incision clean, dry, and intact LAB RESULTS: No lab components to display Most Recent Result from last 24 hours Lab Units 12/01/19 1051 POTASSIUM MEQ/L 6.6* No lab components to display Invalid input(s): LABALBU No lab components to display No lab components to display ABG: Most Recent Result within the last 7 days Lab Units 12/01/19 1051 PH ARTERIAL units 7.31* PCO2 ARTERIAL mm Hg 41 PO2 ARTERIAL mm Hg 177* BICARBONATE MEQ/L 20.6 SvO2: Cultures: None RADIOLOGY/IMAGING: CXR 11/30: per my read, good ETT placement and PAC placement, no ptx, interstitia l opacities worse on left. Atelectasis and edema. MEDICATIONS: acetaminophen, , albumin, 500 mL, Once [START ON 12/02/2019] aspirin, 81 mg, Daily cefuroxime, 1.5 g, Q8H chlorhexidine, 15 mL, BID [START ON 12/02/2019] enoxaparin, 40 mg, Q12H JESENIA famotidine, 20 mg, BID Or famotidine, 20 mg, BID insulin lispro, 1-15 Units, TID PC lidocaine (cardiac) (pf), 1 mg/kg, See Admin Instructions magnesium sulfate in water, , magnesium sulfate, 4 g, Once [START ON 12/02/2019] magnesium sulfate, 4 g, Once [START ON 12/02/2019] metoprolol tartrate, 12.5 mg, BID midazolam (PF), , [START ON 12/02/2019] polyethylene glycol, 17 g, Daily [START ON 12/02/2019] senna-docusate, 2 tablet, BID sodium chloride 0.9 %, , tranexamic acid (CYLOKAPRON) IVPB in 100 mL of NS, 1,000 mg, Once [START ON 12/02/2019] warfarin, 3 mg, QPM INFUSIONS: insulin (humuLIN R) infusion norepinephrine propofol 45 mcg/kg/min (12/01/19 1240) sodium chloride 25 mL/hr (12/01/19 1302) OTHER: Diet: NPO GI Prophylaxis: Pepcid DVT Prophylaxis: SCDs PT/OT/ST: None DIAGNOSIS: Neuro: Sedation CV: Bicuspid aortic valve with severe s/p AVR (mechanical) Ascending aortic aneurysm Low CI Hypertension VT s/p ablation (2019) Pulm: Hypoxemia HEME: Acute blood loss anemia Renal: Hyperkalemia ENDO: Blood glucose controlled on insulin gtt PLAN: 500 albumin Follow CI Hydralazine 10-20 mg q4 hr PRN SBP >140 SBT and extubate Follow K and UOP During multidisciplinary rounds today the patient events of the previous 24 hour s, physical exam, laboratory findings, radiologic studies, fluid balance,neurolo gic status, cardiovascular status, pulmonary status, and metabolic status includ ing nutrition, and medications were reviewed. Trupti Juarez has low cardiac index after mechanical AVR. Will fluid resuscitate and follow. Hypertensive, will give hydralazine now and utilize cardene if neede d for tight BP control. I, Renea Morales PA-C, have reviewed all of these findings and reviewed e CXR imaging. The overall assessment and plans for the day are discussed and do cumented in the Medical Record Note. I was personally present and involved in al l aspects of patient care. Critical care time 35 min KIM Ho documented in this encounter H&P Notes * Reuben Li MD - 12/01/2019 7:14 AM CDT [facility] H&P NAME: Trupti Juarez ADMISSION DATE: 12/01/2019 : 1985 AGE: 34 y.o. PCP: Reji Jacob MD ATTENDING: Reuben Li MD HISTORY OF PRESENT ILLNESS: Mr. Juarez is a pleasant 34 y.o. male who presents to [facility] this morning for aortic valve replacement with possible ascending aortic r esection to be performed by Dr. Li. No significant changes have occurred s julianne last seen in the office on 10/23/2019. Patient denies fevers, chills, N/V, d iarrhea, constipation, melena, abdominal pain, dysuria, hematuria, cough, headac hes, stroke, blurred/double vision or rashes. He does admit to his baseline of s hortness of breath. The patient has been examined and all labs reviewed. Valve c hoices have been discussed with the patient and has chosen a mechanical valve wi th the understanding of requiring lifelong anticoagulation therapy. All question s have been answered to the patients satisfaction and is ready to proceed with t he surgical plan. Consult performed on 10/23/[address] Li. Mr. Juarez is a 34 y/o gentleman with a PMH of bicuspid aortic valve with severe stenosis, ascending aortic aneur ysm and VT s/p ablation in 10/2018. In 2017 he developed VT requiring defibrillat ion. He was referred to [facility] in [place] for EPS with RFA, which was preformed in October 2018. He has not had an ICD implanted. Loop re oma was also placed at some point. During the time of the ablation he was fou nd to have a bicuspid aortic valve with stenosis; and ascending aortic aneurysm, measuring 4.4cm. Over the last year he has noted a progressive decline in overa ll function with associated fatigue, palpitations, shortness of breath and chest pain. Per records the loop recorder has not shown any evidence of arrhythmias. Echocardiogram from June 2019 demonstrated an EF of 60-65%, severe aortic jesus alberto nosis and ascending aorta measuring 5.0cm. Cardiac cath showed normal coronaries . He has been following with Dr. Medina in the [facility] [facility]. He has been referred by Dr. Medina for surgical evaluation for bicuspid aortic valve with severe stenosi s and ascending aortic aneurysm. MEDICATIONS (Admission): Medications Prior to Admission Medication Sig Dispense Refill Last Dose LORazepam (ATIVAN) 0.5 MG tablet Take 0.5 mg by mouth every 6 (six) hours as needed for anxiety. More than a month at Unknown time metoprolol succinate (TOPROL-XL) 200 MG 24 hr tablet Take 200 mg by mouth ev ronnie evening. 11/30/2019 at 2300 MEDICATIONS (Current) acetaminophen acetaminophen 1,000 mg Oral Once gabapentin 300 mg Oral Once glycopyrrolate glycopyrrolate 0.2 mg Intravenous Once midazolam (PF) midazolam 2 mg Intravenous Once sodium chloride 0.9 % ALLERGIES:Hydrocodone PAST MEDICAL HISTORY: Past Medical History: Diagnosis Date Anxiety Aortic stenosis due to bicuspid aortic valve Mean AoV gradient 45 07/22 Ascending aorta dilatation (HCC) 06/2019 5.0 cm ascending aorta; 3.5 cm at sinuses of Valsalva Depression Morbid obesity (HCC) VT (ventricular tachycardia) (HCC) 05/2018 with aberrancy PAST SURGICAL HISTORY: Past Surgical History: Procedure Laterality Date CARDIAC CATHETERIZATION 05/21/2018 normal cors. dilated ascending aorta (47 mm in diameter) CARDIAC CATHETERIZATION 07/10/2019 Performed in [place]. Normal ccoronaries. ELECTROPHYSIOLOGY STUDY POSSIBLE RFA OF SVT 10/2018 Performed at [facility] (AVNRT ablation of slow pathway) IMPLANTABLE LOOP RECORDER PLACEMENT Performed in [place], [place] RIGHT HEART CATHETERIZATION 07/10/2019 Performed in [place]. 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 Social Needs Financial resource strain: Not on file Food insecurity Worry: Not on file Inability: Not on file Transportation needs Medical: Not on file Non-medical: Not on file Tobacco Use Smoking status: Current Every Day Smoker Packs/day: 1.50 Years: 15.00 Pack years: 22.50 Types: Cigarettes Smokeless tobacco: Never Used Substance and Sexual Activity Alcohol use: Never Frequency: Never Drug use: Yes Frequency: 3.0 times per week Types: Marijuana Sexual activity: Not on file Lifestyle Physical activity Days per week: Not on file Minutes per session: Not on file Stress: Not on file Relationships Social connections Talks on phone: Not on file Gets together: Not on file Attends latter day service: Not on file Active member of club or organization: Not on file Attends meetings of clubs or organizations: Not on file Relationship status: Not on file Intimate partner violence Fear of current or ex partner: Not on file Emotionally abused: Not on file Physically abused: Not on file Forced sexual activity: Not on file Other Topics Concern Not on file Social History Narrative Not on file REVIEW OF SYSTEMS: A comprehensive 12 point ROS was performed and was unremarkab le except as noted in the HPI. VITAL SIGNS: There were no vitals taken for this visit. Physical Exam General Obese, well nourished, no acute distress Eyes Pupils equal, round. EOMI Head Normocephalic, atraumatic Dentition Dentition good; No dentures present Neck Soft and supple. No carotid bruits or JVD Lungs Clear to auscultation, no crackles, rhonchi, or wheezes Heart + murmur Abdomen Protuberate, soft, non-tender, non-distended, + bowel sounds Musculoskeletal Appears to have normal range of motion x 4 extremities, no j oint swelling. No pedal edema Neuro Alert, oriented x3, CN II-XII are grossly intact Integ No rashes or cyanosis Vascular +2 bilateral radial on right, left radial with arterial line,+ femo ral, DP, and PT pulses. Right groin with bandage from cath site. Pain with palpa tion to right groin, soft. ASSESSMENT: 1. Aortic stenosis PLAN: The patient has been examined and all labs reviewed. Valve choices have been dis cussed with the patient and has chosen a mechanical valve with the understanding of requiring lifelong anticoagulation therapy. All questions have been answered to the patients satisfaction and is ready to proceed with the surgical plan. The STS Risk score has been calculated and will be discussed with the patient by the surgeon. STS risk calculated as 1.5% for AVR only and discussed with the patient. PPE Statement: Jocelynn Chavez PA-C used Yellow precautions (Level 1 mask worn over level 3 mask and gloves) during the patient encounter. Jocelynn Chavez PA-C 12/01/2019 7:15 AM Above reviewed. The patient has severe symptomatic aortic stenosis and we did n ot think his AVR could safely wait until the covid crisis passes. Last week he underwent cardiac catheterization in [place] and he has no coronary disease. The cath report describes an ascending aortic aneurysm, but on reviewi ng the aortogram I see no morphologic evidence of an aneurysm and his sinotubula r junction is clearly intact. I have reviewed three recent CTs of the chest and on those studies the the maximal diameter of the ascending aorta is 4.3 cm, whi ch is minimally dilated for a man of his size. Dr. Perales and I both think that replacement of the ascending aorta is not indicated. I plan to replace his aor tic valve with a mechanical valve. The patient said he saw a dentist zeina mcallister two months ago and he has no pending dental work. The patient went to the op erating room with no unanswered questions. documented in this encounter Nursing Notes * Jody Lagos RN - 12/04/2019 7:00 PM CDT 1740: Toprol XL 100 mg given. HR 110's 1850: HR >120. IV metoprolol 2.5 mg given. HR decreased to 110 bpm. Bedside report given to W2 RN and aware of plan of care. * Mayela Barksdale RN - 12/02/2019 10:30 PM CDT Pt c/o 03/12 pain. No relief from PRN PO oxy, scheduled tylenol, and PRN IV dilau did (see MAR). [facility] [employer] [employer], Cara Hollis, called. [facility] [employer] [employer] ordered a one time dose of vickie apentin 200mg and PRN IV toadol q 6 hrs. documented in this encounter Miscellaneous Notes * Discharge Planning - Savita Tarango RN - 12/08/2019 10:24 AM CDT Discharge Planning Interventions General Discharge Note Anticipated discharge disposition: Home Self Care DC Wednesday 12/06 Faxed DC Summary to Dr Jacob @ [phone] Nichol Tobar@ [phone]. Radha Tarango RN [facility] [phone] * Nursing Discharge - Dinora Ledezma RN - 12/07/2019 2:34 PM CDT Nursing Discharge Note Discharge instructions reviewed with patient. All questions and concerns answere d. Prescriptions and temporary valve card given to patient. Taken out via wheel hair with all of belongings. Patient/family satisfied with progress made towards goals and ready for discharg e. * Emiliano patient juan - Dinora Ledezma RN - 12/07/2019 12:13 PM CDT 1279 Warfarin tablets What is this medicine? WARFARIN (WAR far in) is an anticoagulant. It is used to treat or prevent clots in the veins, arteries, lungs, or heart. How should I use this medicine? Take this medicine by mouth with a glass of water. Follow the directions on the prescription label. You can take this medicine with or without food. Take your medicine at the same time each day. Do not take it more often than directed. Do not stop taking except on your doctor's advice. Stopping this medicine may incre ase your risk of a blood clot. Be sure to refill your prescription before you ru n out of medicine. If your doctor or healthcare professional calls to change your dose, write down the dose and any other instructions. Always read the dose and instructions back to him or her to make sure you understand them. Tell your doctor or healthcare professional what strength of tablets you have on hand. Ask how many tablets you should take to equal your new dose. Write the date on the new instructions and keep them near your medicine. If you are told to stop taking your medicine until your next blood test, call your doctor or healthcare professional if you do not hear anything within 24 hours of the test to find out your new dose or when to restart your prior dose. A special MedGuide will be given to you by the pharmacist with each prescriptio n and refill. Be sure to read this information carefully each time. Talk to your pier hand regarding the use of this medicine in children. Speci al care may be needed. What side effects may I notice from receiving this medicine? Side effects that you should report to your doctor or health healthcare insurance sales agent as soon as possible: allergic reactions like skin rash, itching or hives, swelling of the face , lips, or tongue breathing problems chest pain dizziness headache heavy menstrual bleeding or vaginal bleeding pain in the lower back or side painful, blue or purple toes painful skin ulcers that do not go away signs and symptoms of bleeding such as bloody or black, tarry stools; red or dark-brown urine; spitting up blood or brown material that looks like coffee grounds; red spots on the skin; unusual bruising or bleeding from the eye, gums, or nose stomach pain unusually weak or tired Side effects that usually do not require medical attention (report to your doc tor or health healthcare insurance sales agent if they continue or are bothersome): diarrhea hair loss What may interact with this medicine? Do not take this medicine with any of the following medications: agents that prevent or dissolve blood clots aspirin or other salicylates danshen dextrothyroxine mifepristone Vanita's Wort red yeast rice This medicine may also interact with the following medications: acetaminophen agents that lower cholesterol alcohol allopurinol amiodarone antibiotics or medicines for treating bacterial, fungal or viral infectio ns azathioprine barbiturate medicines for inducing sleep or treating seizures certain medicines for diabetes certain medicines for heart rhythm problems certain medicines for hepatitis C virus infections like daclatasvir, dasa buvir; ombitasvir; paritaprevir; ritonavir, elbasvir; grazoprevir, ledipasvir; s ofosbuvir, simeprevir, sofosbuvir, sofosbuvir; velpatasvir, sofosbuvir; velpatas vir; voxilaprevir certain medicines for high blood pressure chloral hydrate cisapride conivaptan disulfiram female hormones, including contraceptive or control pills general anesthetics herbal or dietary products like garlic, ginkgo, ginseng, green tea, or ka va kava influenza virus vaccine male hormones medicines for mental depression or psychosis medicines for some types of cancer medicines for stomach problems methylphenidate NSAIDs, medicines for pain and inflammation, like ibuprofen or naproxen propoxyphene quinidine, quinine raloxifene seizure or epilepsy medicine like carbamazepine, phenytoin, and valproic acid steroids like cortisone and prednisone tamoxifen thyroid medicine tramadol vitamin c, vitamin e, and vitamin K zafirlukast zileuton What if I miss a dose? It is important not to miss a dose. If you miss a dose, call your healthcare pr ovider. Take the dose as soon as possible on the same day. If it is almost time for your next dose, take only that dose. Do not take double or extra doses to ma ke up for a missed dose. Where should I keep my medicine? Keep out of the reach of children. Store at room temperature between 15 and 30 degrees C (59 and 86 degrees F). Pr otect from light. Throw away any unused medicine after the expiration date. Do n ot flush down the toilet. What should I tell my health care provider before I take this medicine? They need to know if you have any of these conditions: alcoholism anemia bleeding disorders cancer diabetes heart disease high blood pressure history of bleeding in the gastrointestinal tract history of stroke or other brain injury or disease kidney or liver disease protein C deficiency protein S deficiency psychosis or dementia recent injury, recent or planned surgery or procedure an unusual or allergic reaction to warfarin, other medicines, foods, dyes , or preservatives or trying to get breast-feeding What should I watch for while using this medicine? Visit your doctor or health healthcare insurance sales agent for regular checks on your progre ss. You will need to have a blood test called a PT/INR regularly. The PT/INR blo od test is done to make sure you are getting the right dose of this medicine. It is important to not miss your appointment for the blood tests. When you first s tart taking this medicine, these tests are done often. Once the correct dose is determined and you take your medicine properly, these tests can be done less oft en. Notify your doctor or health healthcare insurance sales agent and seek emergency treatment if you develop breathing problems; changes in vision; chest pain; severe, sudden he adache; pain, swelling, warmth in the leg; trouble speaking; sudden numbness or weakness of the face, arm or leg. These can be signs that your condition has got ten worse. While you are taking this medicine, carry an identification card with your name , the name and dose of medicine(s) being used, and the name and phone number of your doctor or health healthcare insurance sales agent or person to contact in an emergency. Do not start taking or stop taking any medicines or arsa-zye-synxczs medicines except on the advice of your doctor or health healthcare insurance sales agent. You should discuss your diet with your doctor or health healthcare insurance sales agent. Do n ot make major changes in your diet. Vitamin K can affect how well this medicine works. Many foods contain vitamin K. It is important to eat a consistent amount of foods with vitamin K. Other foods with vitamin K that you should eat in consi stent amounts are asparagus, basil, black eyed peas, broccoli, brussel sprouts, cabbage, green onions, green tea, parsley, green leafy vegetables like beet gree ns, nader greens, kale, spinach, turnip greens, or certain lettuces like green leaf or concepcion. This medicine can cause defects or bleeding in an unborn child. Women of childbearing age should use effective control while taking this medicine. If a woman becomes while taking this medicine, she should discuss the p otential risks and her options with her health healthcare insurance sales agent. Avoid sports and activities that might cause injury while you are using this me dicine. Severe falls or injuries can cause unseen bleeding. Be careful when usin g sharp tools or knives. Consider using an electric razor. Take special care bru shing or flossing your teeth. Report any injuries, bruising, or red spots on the skin to your doctor or health healthcare insurance sales agent. If you have an illness that causes vomiting, diarrhea, or fever for more than a few days, contact your doctor. Also check with your doctor if you are unable to eat for several days. These problems can change the effect of this medicine. Even after you stop taking this medicine, it takes several days before your bod y recovers its normal ability to clot blood. Ask your doctor or health care prof essional how long you need to be careful. If you are going to have surgery or de ntal work, tell your doctor or health healthcare insurance sales agent that you have been takin g this medicine. NOTE:This sheet is a summary. It may not cover all possible information. If you have questions about this medicine, talk to your doctor, pharmacist, or health care provider. Copyright 2020 [employer] * Sanames patient edu - Dinora Ledezma RN - 12/07/2019 12:13 PM CDT 89 Oxycodone tablets or capsules What is this medicine? OXYCODONE (ox i KOE done) is a pain reliever. It is used to treat moderate to s evere pain. How should I use this medicine? Take this medicine by mouth with a glass of water. Follow the directions on the prescription label. You can take it with or without food. If it upsets your sto mach, take it with food. Take your medicine at regular intervals. Do not take it more often than directed. Do not stop taking except on your doctor's advice. Some brands of this medicine, like Oxecta, have special instructions. Ask your doctor or pharmacist if these directions are for you: Do not cut, crush or chew this medicine. Swallow only one tablet at a time. Do not wet, soak, or lick the tablet before you take it. A special MedGuide will be given to you by the pharmacist with each prescriptio n and refill. Be sure to read this information carefully each time. Talk to your pier hand regarding the use of this medicine in children. Speci al care may be needed. What side effects may I notice from receiving this medicine? Side effects that you should report to your doctor or health healthcare insurance sales agent as soon as possible: allergic reactions like skin rash, itching or hives, swelling of the face , lips, or tongue breathing problems confusion signs and symptoms of low blood pressure like dizziness; feeling faint or lightheaded, falls; unusually weak or tired trouble passing urine or change in the amount of urine trouble swallowing Side effects that usually do not require medical attention (report to your doc tor or health healthcare insurance sales agent if they continue or are bothersome): constipation dry mouth nausea, vomiting tiredness What may interact with this medicine? This medicine may interact with the following medications: alcohol antihistamines for allergy, cough and cold antiviral medicines for HIV or AIDS atropine certain antibiotics like clarithromycin, erythromycin, linezolid, rifampi n certain medicines for anxiety or sleep certain medicines for bladder problems like oxybutynin, tolterodine certain medicines for depression like amitriptyline, fluoxetine, sertrali ne certain medicines for fungal infections like ketoconazole, itraconazole, voriconazole certain medicines for migraine headache like almotriptan, eletriptan, fro vatriptan, naratriptan, rizatriptan, sumatriptan, zolmitriptan certain medicines for nausea or vomiting like dolasetron, ondansetron, pa lonosetron certain medicines for Parkinson's disease like benztropine, trihexyphenid yl certain medicines for seizures like phenobarbital, phenytoin, primidone certain medicines for stomach problems like dicyclomine, hyoscyamine certain medicines for travel sickness like scopolamine diuretics general anesthetics like halothane, isoflurane, methoxyflurane, propofol ipratropium local anesthetics like lidocaine, pramoxine, tetracaine MAOIs like Carbex, Eldepryl, Marplan, Nardil, and Parnate medicines that relax muscles for surgery methylene blue nilotinib other narcotic medicines for pain or cough phenothiazines like chlorpromazine, mesoridazine, prochlorperazine, thior idazine What if I miss a dose? If you miss a dose, take it as soon as you can. If it is almost time for your n ext dose, take only that dose. Do not take double or extra doses. Where should I keep my medicine? Keep out of the reach of children. This medicine can be abused. Keep your medic ine in a safe place to protect it from theft. Do not share this medicine with an yone. Selling or giving away this medicine is dangerous and against the law. Store at room temperature between 15 and 30 degrees C (59 and 86 degrees F). Pr otect from light. Keep container tightly closed. This medicine may cause harm and if it is taken by other adults, children , or pets. Return medicine that has not been used to an official disposal site. Contact the [employer] at or your [facility] [employer] to find a site. If you cannot return the medicine, flush it down the toilet. Do not use the med icine after the expiration date. What should I tell my health care provider before I take this medicine? They need to know if you have any of these conditions: Michael's disease brain tumor head injury heart disease history of drug or alcohol abuse problem if you often drink alcohol kidney disease liver disease lung or breathing disease, like asthma mental illness pancreatic disease seizures thyroid disease an unusual or allergic reaction to oxycodone, codeine, hydrocodone, morph ine, other medicines, foods, dyes, or preservatives or trying to get breast-feeding What should I watch for while using this medicine? Tell your doctor or health healthcare insurance sales agent if your pain does not go away, if it gets worse, or if you have new or a different type of pain. You may develop t olerance to the medicine. Tolerance means that you will need a higher dose of th e medicine for pain relief. Tolerance is normal and is expected if you take this medicine for a long time. Do not suddenly stop taking your medicine because you may develop a severe reac tion. Your body becomes used to the medicine. This does NOT mean you are addicte d. Addiction is a behavior related to getting and using a drug for a non-medical reason. If you have pain, you have a medical reason to take pain medicine. Your doctor will tell you how much medicine to take. If your doctor wants you to stop the medicine, the dose will be slowly lowered over time to avoid any side effe cts. There are different types of narcotic medicines (opiates). If you take more rubi n one type at the same time or if you are taking another medicine that also caus es drowsiness, you may have more side effects. Give your health care provider a list of all medicines you use. Your doctor will tell you how much medicine to ta ke. Do not take more medicine than directed. Call emergency for help if you have problems breathing or unusual sleepiness. You may get drowsy or dizzy. Do not drive, use machinery, or do anything that n eeds mental alertness until you know how the medicine affects you. Do not stand or sit up quickly, especially if you are an older patient. This reduces the risk of dizzy or fainting spells. Alcohol may interfere with the effect of this medi cine. Avoid alcoholic drinks. This medicine will cause constipation. Try to have a bowel movement at least ev ronnie 2 to 3 days. If you do not have a bowel movement for 3 days, call your docto r or health healthcare insurance sales agent. Your mouth may get dry. Chewing sugarless gum or sucking hard candy, and drinki ng plenty of water may help. Contact your doctor if the problem does not go away or is severe. NOTE:This sheet is a summary. It may not cover all possible information. If you have questions about this medicine, talk to your doctor, pharmacist, or health care provider. Copyright 2020 [employer] * Emiliano patient edu - Dinora Ledezma RN - 12/07/2019 12:13 PM CDT 5017 Gabapentin capsules or tablets What is this medicine? GABAPENTIN (GA ba pen tin) is used to control seizures in certain types of epil epsy. It is also used to treat certain types of nerve pain. How should I use this medicine? Take this medicine by mouth with a glass of water. Follow the directions on the prescription label. You can take it with or without food. If it upsets your sto mach, take it with food. Take your medicine at regular intervals. Do not take it more often than directed. Do not stop taking except on your doctor's advice. If you are directed to break the 600 or 800 mg tablets in half as part of your dose, the extra half tablet should be used for the next dose. If you have not us ed the extra half tablet within 28 days, it should be thrown away. A special MedGuide will be given to you by the pharmacist with each prescriptio n and refill. Be sure to read this information carefully each time. Talk to your pier hand regarding the use of this medicine in children. While this drug may be prescribed for children as young as 3 years for selected condi tions, precautions do apply. What side effects may I notice from receiving this medicine? Side effects that you should report to your doctor or health healthcare insurance sales agent as soon as possible: allergic reactions like skin rash, itching or hives, swelling of the face , lips, or tongue breathing problems suicidal thoughts, mood changes Side effects that usually do not require medical attention (report to your doc tor or health healthcare insurance sales agent if they continue or are bothersome): dizziness drowsiness headache nausea, vomiting swelling of ankles, feet, hands tiredness What may interact with this medicine? This medicine may interact with the following medications: alcohol antihistamines for allergy, cough, and cold certain medicines for anxiety or sleep certain medicines for depression like amitriptyline, fluoxetine, sertrali ne certain medicines for seizures like phenobarbital, primidone certain medicines for stomach problems general anesthetics like halothane, isoflurane, methoxyflurane, propofol local anesthetics like lidocaine, pramoxine, tetracaine medicines that relax muscles for surgery narcotic medicines for pain phenothiazines like chlorpromazine, mesoridazine, prochlorperazine, thior idazine What if I miss a dose? If you miss a dose, take it as soon as you can. If it is almost time for your n ext dose, take only that dose. Do not take double or extra doses. Where should I keep my medicine? Keep out of reach of children. This medicine may cause accidental overdose and if it taken by other adul ts, children, or pets. Mix any unused medicine with a substance like cat litter or coffee grounds. Then throw the medicine away in a sealed container like a sea led bag or a coffee can with a lid. Do not use the medicine after the expiration date. Store at room temperature between 15 and 30 degrees C (59 and 86 degrees F). What should I tell my health care provider before I take this medicine? They need to know if you have any of these conditions: history of drug abuse or alcohol abuse problem kidney disease lung or breathing disease suicidal thoughts, plans, or attempt; a previous suicide attempt by you o r a family member an unusual or allergic reaction to gabapentin, other medicines, foods, dy es, or preservatives or trying to get breast-feeding What should I watch for while using this medicine? Visit your doctor or health healthcare insurance sales agent for regular checks on your progre ss. You may want to keep a record at home of how you feel your condition is resp onding to treatment. You may want to share this information with your doctor or health healthcare insurance sales agent at each visit. You should contact your doctor or health healthcare insurance sales agent if your seizures get worse or if you have any new types of se izures. Do not stop taking this medicine or any of your seizure medicines unless instructed by your doctor or health healthcare insurance sales agent. Stopping your medicine s uddenly can increase your seizures or their severity. Wear a medical identification bracelet or chain if you are taking this medicine for seizures, and carry a card that lists all your medications. You may get drowsy, dizzy, or have blurred vision. Do not drive, use machinery, or do anything that needs mental alertness until you know how this medicine aff ects you. To reduce dizzy or fainting spells, do not sit or stand up quickly, es pecially if you are an older patient. Alcohol can increase drowsiness and dizzin ess. Avoid alcoholic drinks. Your mouth may get dry. Chewing sugarless gum or sucking hard candy, and drinki ng plenty of water will help. The use of this medicine may increase the chance of suicidal thoughts or action s. Pay special attention to how you are responding while on this medicine. Any w orsening of mood, or thoughts of suicide or dying should be reported to your [facility] healthcare insurance sales agent right away. Women who become while using this medicine may enroll in the [facility] Antiepileptic Drug Registry by calling . This miesha stry collects information about the safety of antiepileptic drug use during preg ching. NOTE:This sheet is a summary. It may not cover all possible information. If you have questions about this medicine, talk to your doctor, pharmacist, or health care provider. Copyright 2020 [employer] * Emiliano patient edu - Dinora Ledezma RN - 12/07/2019 12:13 PM CDT 85644 Aspirin, ASA chewable tablets What is this medicine? ASPIRIN ( pir in) is a pain reliever. It is used to treat mild pain and fever . This medicine is also used as directed by a doctor to prevent and to treat hea rt attacks, to prevent strokes and blood clots, and to treat arthritis or inflam mation. How should I use this medicine? Take this medicine by mouth. Chew it completely before swallowing. Follow the d irections on the package or prescription label. Do not take your medicine more o ften than directed. Talk to your pier hand regarding the use of this medicine in children. While this drug may be prescribed for children as young as 12 years of age for select ed conditions, precautions do apply. Children and teenagers should not use this medicine to treat chicken pox or flu symptoms unless directed by a doctor. Patients over 65 years old may have a stronger reaction and need a smaller dose . What side effects may I notice from receiving this medicine? Side effects that you should report to your doctor or health healthcare insurance sales agent as soon as possible: allergic reactions like skin rash, itching or hives, swelling of the face , lips, or tongue breathing problems changes in hearing, ringing in the ears confusion general ill feeling or flu-like symptoms pain on swallowing redness, blistering, peeling or loosening of the skin, including inside t he mouth or nose signs and symptoms of bleeding such as bloody or black, tarry stools; red or dark-brown urine; spitting up blood or brown material that looks like coffee grounds; red spots on the skin; unusual bruising or bleeding from the eye, gums, or nose trouble passing urine or change in the amount of urine unusually weak or tired yellowing of the eyes or skin Side effects that usually do not require medical attention (report to your doc tor or health healthcare insurance sales agent if they continue or are bothersome): diarrhea or constipation nausea, vomiting stomach gas, heartburn What may interact with this medicine? Do not take this medicine with any of the following medications: cidofovir ketorolac probenecid This medicine may also interact with the following medications: alcohol alendronate bismuth subsalicylate flavocoxid herbal supplements like feverfew, garlic, deb, ginkgo biloba, horse ch estnut medicines for diabetes or glaucoma like acetazolamide, methazolamide medicines for gout medicines that treat or prevent blood clots like enoxaparin, heparin, tic lopidine, warfarin other aspirin and aspirin-like medicines NSAIDs, medicines for pain and inflammation, like ibuprofen or naproxen pemetrexed sulfinpyrazone varicella live vaccine What if I miss a dose? If you are taking this medicine on a regular schedule and miss a dose, take it as soon as you can. If it is almost time for your next dose, take only that dose . Do not take double or extra doses. Where should I keep my medicine? Keep out of the reach of children. Store at room temperature between 15 and 30 degrees C (59 and 86 degrees F). Pr otect from heat and moisture. Do not use this medicine if it has a strong vinega r smell. Throw away any unused medicine after the expiration date. What should I tell my health care provider before I take this medicine? They need to know if you have any of these conditions: anemia asthma bleeding problems child with chickenpox, the flu, or other viral infection diabetes gout if you frequently drink alcohol containing drinks kidney disease liver disease low level of vitamin K lupus smoke tobacco stomach ulcers or other problems an unusual or allergic reaction to aspirin, tartrazine dye, other medicin es, dyes, or preservatives or trying to get breast-feeding What should I watch for while using this medicine? If you are treating yourself for pain, tell your doctor or health care professi onal if the pain lasts more than 10 days, if it gets worse, or if there is a new or different kind of pain. Tell your doctor if you see redness or swelling. Als o, check with your doctor if you have a fever that lasts for more than 3 days. O nly take this medicine to prevent heart attacks or blood clotting if prescribed by your doctor or health healthcare insurance sales agent. Do not take aspirin or aspirin-like medicines with this medicine. Too much aspi rin can be dangerous. Always read the labels carefully. This medicine can irritate your stomach or cause bleeding problems. Do not smok e cigarettes or drink alcohol while taking this medicine. Do not lie down for 30 minutes after taking this medicine to prevent irritation to your throat. If you are scheduled for any medical or dental procedure, tell your healthcare provider that you are taking this medicine. You may need to stop taking this med icine before the procedure. NOTE:This sheet is a summary. It may not cover all possible information. If you have questions about this medicine, talk to your doctor, pharmacist, or health care provider. Copyright 2020 [employer] * Krames patient edu - Dinora Ledezma RN - 12/07/2019 12:13 PM CDT 139 Lidocaine dermal patch What is this medicine? LIDOCAINE (LYE peters berry) causes loss of feeling in the skin and surrounding are a. The medicine helps treat pain, including nerve pain. How should I use this medicine? This medicine is for external use only. Follow the directions on the prescripti on label or package. Talk to your pier hand regarding the use of this medicine in children. While this drug may be prescribed for children as young as 12 years for selected cond itions, precautions do apply. What side effects may I notice from receiving this medicine? Side effects that you should report to your doctor or health healthcare insurance sales agent as soon as possible: allergic reactions like skin rash, itching or hives, swelling of the face , lips, or tongue breathing problems chest pain or chest tightness dizzines Side effects that usually do not require medical attention (report to your doc tor or health healthcare insurance sales agent if they continue or are bothersome): tingling, numbness at site where applied What may interact with this medicine? Do not take this medicine with any of the following medications: certain medicines for irregular heart beat MAOIs like Carbex, Eldepryl, Marplan, Nardil, and Parnate This medicine may also interact with the following medications: other local anesthetics like pramoxine, tetracaine Do not use any other skin products on the affected area without asking your do ctor or health healthcare insurance sales agent. What if I miss a dose? Apply the patches as needed for pain. Where should I keep my medicine? Keep out of the reach of children. See product for storage instructions. Each product may have different instructi ons. What should I tell my health care provider before I take this medicine? They need to know if you have any of these conditions: heart disease history of irregular heart beat liver disease skin conditions or sensitivity skin infection an unusual or allergic reaction to lidocaine, parabens, other medicines, foods, dyes, or preservatives or trying to get breast-feeding What should I watch for while using this medicine? Tell your doctor or healthcare professional if your symptoms do not start to ge t better or if they get worse. Be careful to avoid injury while the area is numb from the medicine, and you ar e not aware of pain. If you are going to need surgery, a MRI, CT scan, or other procedure, tell your doctor that you are using this medicine. You may need to remove this patch befo re the procedure. Do not get this medicine in your eyes. If you do, rinse out with plenty of cool tap water. This medicine can make certain skin conditions worse. Only use it for condition s for which your doctor or health healthcare insurance sales agent has prescribed. NOTE:This sheet is a summary. It may not cover all possible information. If you have questions about this medicine, talk to your doctor, pharmacist, or health care provider. Copyright 2020 [employer] * [facility] - Dinora Ledezma RN - 12/07/2019 12:13 PM CDT [id number] Hyponatremia Hyponatremia means low sodium levels in the blood. This condition most often oc curs after prolonged vomiting or diarrhea, which causes your body to lose too mu ch water and sodium. It can also result from drinking excess amounts of water or the use of diuretics (water pills). Rarely, it can be associated with disorders of your endocrine system, as side effects of illicit drug use (ecstasy), as a c omplication of some cancers especially small cell lung cancer, or as a complicat ion of renal and liver disease or heart failure. Mild hyponatremia causes no symptoms. It is only discovered with a blood test. As sodium levels in the blood decreases, symptoms begin to appear. This includes weakness, confusion, muscle cramping and seizures. Home care Reduce your daily water intake until the problem is corrected. If you have been taking diuretics, you may be asked to stop taking them f or a short time. If you are having symptoms of weakness or confusion, do not drive or oper ate dangerous machinery until symptoms resolve. If your sodium levels are too low to be managed at home with the above re commendations, you will be asked to go to the hospital to have your sodium repla karissa through your vein. Follow-up care Follow up with your healthcare provider for a repeat blood test within the next week, or as advised. When to seek medical advice Call your healthcare provider if any of the following occur: Increasing weakness Dizziness Irregular heartbeat, extra beats or very fast heart rate Increasing confusion Fainting or loss of consciousness Seizure [id number] [employer]. [address] [place] [address] 91 80. All rights reserved. This information is not intended as a substitute for p [facility] medical care. Always follow your healthcare professional's instructi ons. * [facility] patient edu - Dinora Ledezma RN - 12/07/2019 12:13 PM CDT 20627 Eating Heart-Healthy Foods Eating has a big impact on your heart health. In fact, eating healthier can imp rove several of your heart risks at once. For instance, it helps you manage weig ht, cholesterol, and blood pressure. Here are ideas to help you make heart-healt hy changes without giving up all the foods and flavors you love. Getting started Talk with your healthcare provider about eating plans, such as the DASH or Mediterranean diet. You may also be referred to a dietitian. Change a few things at a time. Give yourself time to get used to a few ea ting changes before adding more. Work to create a tasty, healthy eating plan that you can stick to for the rest of your life. Goals for healthy eating Below are some tips to improve your eating habits: Limit saturated fats and trans fats. Saturated fats raise your levels of cholesterol, so keep these fats to a minimum. They are found in foods such as fa tty meats, whole milk, cheese, and palm and coconut oils. Avoid trans fats becau se they lower good cholesterol as well as raise bad cholesterol. Trans fats are most often found in processed foods. Reduce sodium (salt) intake. Eating too much salt may increase your blood pressure. Limit your sodium intake to 2,300 milligrams (mg) per day (the amount in 1 teaspoon of salt), or less if your healthcare provider recommends it. Mylene ng out less often and eating fewer processed foods are two great ways to decreas e the amount of salt you consume. Managing calories. A calorie is a unit of energy. Your body rose calorie s for fuel, but if you eat more calories than your body rose, the extras are st ored as fat. Your healthcare provider can help you create a diet plan to manage your calories. This will likely include eating healthier foods as well as exerci sing regularly. To help you track your progress, keep a diary to record what you eat and how often you exercise. Choose the right foods Aim to make these foods adalid of your diet. If you have diabetes, you may hav e different recommendations than what is listed here: Fruits and vegetables provide plenty of nutrients without a lot of calori es. At meals, fill half your plate with these foods. Split the other half of you r plate between whole grains and lean protein. Whole grains are high in fiber and rich in vitamins and nutrients. Good c hoices include whole-wheat bread, pasta, and brown rice. Lean proteins give you nutrition with less fat. Good choices include fish , skinless chicken, and beans. Low-fat or nonfat dairy provides nutrients without a lot of fat. Try low- fat or nonfat milk, cheese, or yogurt. Healthy fats can be good for you in small amounts. These are unsaturated fats, such as olive oil, nuts, and fish. Try to have at least 2 servings per wee k of fatty fish, such as salmon, sardines, mackerel, rainbow trout, and albacore tuna. These contain omega-3 fatty acids, which are good for your heart. Flaxseed is another source of a heart-healthy fat. More on heart-healthy eating Read food labels Healthy eating starts at the grocery store. Be sure to pay attention to food la bels on packaged foods. Look for products that are high in fiber and protein, an d low in saturated fat, cholesterol, and sodium. Avoid products that contain tra ns fat. And pay close attention to serving size. For instance, if you plan to ea t two servings, double all the numbers on the label. Prepare food right A gay part of healthy cooking is cutting down on added fat and salt. Look on Tue[employer] internet for lower-fat, lower-sodium recipes. Also, try these tips: Remove fat from meat and skin from poultry before cooking. Skim fat from the surface of soups and sauces. Broil, boil, bake, steam, grill, and microwave food without added fats. Choose ingredients that spice up your food without adding calories, fat, or sodium. Try these items: horseradish, hot sauce, lemon, mustard, nonfat salad dressings, and vinegar. For salt-free herbs and spices, try basil, cilantro, ci nnamon, pepper, and sunny. [id number] [employer] [place] [address]. All rights reserved. This information is not intended as a substitute for p [facility] medical care. Always follow your healthcare professional's instructi ons. * [facility] patient edu - Dinora Ledezma RN - 12/07/2019 12:13 PM CDT 46650 Heart Valve Problems: Aortic Stenosis Aortic stenosis means your aortic valve has a problem opening. The aortic valve is 1 of the hearts 4 valves. It is on the left side of the heart. It sits be tween the left lower chamber (left ventricle) and the large blood vessel that se nds blood to the body (aorta). With aortic stenosis, the left ventricle has to w ork harder to push the blood through the valve. In some cases, this extra work w ill make the muscle of the ventricle thicken. In time, the extra work can tire t he heart and cause the heart muscle to weaken. Stenosis usually gets worse slowly, over many years. But sometimes, it can quic kly get worse. Open aortic valve with stenosis (viewed from above). Cross section of heart showing aortic valve with stenosis. Possible causes Calcium deposits can form on the aortic valve as you get older. These deposits make the valve stiff and hard to open. In some cases, you may have been born wit h an abnormal aortic valve. Or your aortic valve may have been damaged by rheuma tic fever or a heart infection. Radiation therapy used as treatment for cancers such as lymphoma, may be a cause. Treating aortic stenosis In many cases, treatment wont be needed unless you have symptoms. If you do have symptoms, medicines may help relieve them. If the stenosis is severe, your healthcare provider may advise surgery to replace the valve. Or you may have a c atheter-based procedure (transcatheter aortic valve replacement or TAVR) to repl eden the valve, even if you dont have symptoms. [id number] [employer]. [address] [place] [address] 190 13. All rights reserved. This information is not intended as a substitute for pr ofessional medical care. Always follow your healthcare professional's instructio ns. * End of Shift Note - Syl Garcia RN - 12/06/2019 6:32 PM CDT End of Shift Summary and Plan of Care A&O. NSR-ST per tele, HR 100's, 140's with ambulation. Incisions C/D/I. Pt states adequate pain control on current regimen, see MAR. VSS. zofran x1 for nausea. 1500mL free water restriction. Ambulated in hallways x3, planning shower for before bed. Will continue poc. Goals per Patient Condition Fall Prevention Plan Patient will remain free from injury related to falls. See the Daily cares/safety flowsheet for intervention documentation. Skin Integrity Plan Patient skin integrity maintained. See integumentary josé wsheet for intervention documentation. Goals/Plan for Shift Patient/Family stated goal for shift: pain management Nursing goal for shift: pain management, ambulation Plan: use pharm/nonpharm pain interventions, collaborate with PT/NA to ambulate in hallways 3+ times Goals/Plan for Hospital Stay Patient/Family stated goal for hospital stay: "feel better so I can go home" Nursing goal for hospital stay: Stable VS, pain control, remain injury free, inc rease motility, meet all requirements for discharge. Plan: Monitor VS, manage pain, maintain pt safety. * Therapy Note - Sari Bhardwaj, PT - 12/06/2019 11:05 AM CDT 12/06/19 1105 PT Visit Info Patient/Family Reports Pt reports 10 chest pain. Gives consent to treat. PT Received On 12/06/19 Precautions Fall Risk Yes Isolation No Supplemental Oxygen RA Other sternal Pain Assessment Pain Score 3 Pain Type Surgical pain Pain Location Chest Pain Orientation Mid Cognition Overall Cognitive Status WFL Orientation Level Oriented to person;Oriented to place;Oriented to time;Oriented to situation Bed Mobility Supine to Sit Mod assist to right;Verbal cueing required;HOB elevated Bed Mobility Comments pt stated that he plans to sleep in his recliner for awhil e. Transfers Assistive Device None Sit to Stand Transfers Stand by assistance Stand to Sit Transfers Stand by assistance Toilet transfer Stand by assistance Gait Gait Distance (Feet) 350 Assistive Device None Gait Level Surface Assistance Stand by Pattern Decreased ton Gait Comments pt directed in pursed lip breathing. Gait Activity Gait Surface level surface Gait Activity sidestep;braiding;retro walking;hallway mobility;room mobility Gait Time 6-10 min Gait Assistance SBA Gait Activity Comments Pt was also directed in pivoting 180 deg and stopping vikram ckly. Required single UE support for the braiding activity. CGA for ambulating b ackwards. Activity Tolerance Activity Tolerance fair;+;short of breath Sensation Light Touch Intact Proprioception Proprioception Intact LE Ther Ex Hip AB/AD Bilateral;11 - 15 reps;Standing Heel raise Bilateral;11 - 15 reps;Standing Other Bilateral;11 - 15 reps;Standing (DF) *ASSESSMENT Learning Barriers None Response to Treatment Good Assistance Needed Occasional verbal cues (10-25%) Problem List Activity limitations;Activity tolerance;Balance;Bed mobility;Gait;D ecreased gait speed;Transfers;Strength;Pain Clinical presentation Stable Bed Mobility Goals Bed Transfer STG Goal Status Goal continues Bed Mobility STG Supervision Bed Transfer LTG Goal Status Goal continues Bed Mobility LTG Modified independent Transfer Goals Transfer STG Goal Status Achieved Transfer STG Supervision Transfer LTG Goal Status Goal continues (upgraded) Transfers LTG Independent Gait Distance/Assist Goals Gait Distance STG (ft) 80 ft Gait Distance STG Goal Status Achieved Gait Assist STG Minimum assistance Gait Distance LTG (ft) 100 ft Gait Distance LTG Goal Status New goal;Prior goal achieved Gait Assist LTG Independent Plan PT Treatment Interventions Functional transfer training;LE strengthening/ROM;End urance training;Patient/family training;Equipment eval/education;Bed mobility;Ga it training;Compensatory technique education;Balance;Safety training;Progressive Mobility Progress Progressing toward goals PT Frequency 5-7x/wk PT Nursing Communication amb in hallway 3x daily Discharge Recommendations Plan Continued PT;Safe to DC home with family support Sari Bhardwaj,PT,DPT Physical Therapist [employer] Number: [phone] * End of Shift Note - Syl Garcia RN - 12/05/2019 6:51 PM CDT End of Shift Summary and Plan of Care A&O. NSR. RA. Incisions C/D/I. Oxy and toradol providing adequate pain control per pt report. zofran x1 for nausea. 10mg coumadin. 1500ml free water restriction, pt compliant. Ambulated in hallways, HR 140's when walking. VSS. Will continue POC. Goals per Patient Condition Fall Prevention Plan Patient will remain free from injury related to falls. See the Daily cares/safety flowsheet for intervention documentation. Skin Integrity Plan Patient skin integrity maintained. See integumentary josé wsheet for intervention documentation. Goals/Plan for Shift Patient/Family stated goal for shift: pain managment Nursing goal for shift: pain management, ambulation Plan: use pharm/nonpharm pain interventions as needed, collaborate with PT/NA to ambulate with pt 3+ times in hallways Goals/Plan for Hospital Stay Patient/Family stated goal for hospital stay: "feel better so I can go home" Nursing goal for hospital stay: Stable VS, pain control, remain injury free, inc rease motility, meet all requirements for discharge. Plan: Monitor VS, manage pain, maintain pt safety. * Discharge Planning - Willhauck, Bell, RN - 12/05/2019 4:47 PM CDT Discharge Planning Interventions General Discharge Note Anticipated discharge disposition: Home Self Care Additional discharge planning information: INR 1.4 Needs to be 2 for DC. Plan home self care. Has support at home. Has a ride Home at [place]. Talked with Margo GREENBERG via Voalte. She is setting up his follow up visit with card iology and were his INR needs to be sent. Patient from [facility]. Will use local lab. 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 Radha Tarango RN [facility] [phone] * Therapy Note - Jm Araujo PTA - 12/05/2019 12:35 PM CDT 12/05/19 1101 PT Visit Info Patient/Family Reports Pt is agreeable to PT. PT Received On 12/05/19 Precautions Fall Risk Yes Bed Mobility Supine to Sit Mod assist to right;Verbal cueing required;HOB elevated Sit to Supine Stand by assistance;Verbal cueing required;HOB elevated Transfers Assistive Device None Sit to Stand Transfers Stand by assistance Stand to Sit Transfers Stand by assistance Gait Gait Distance (Feet) 400 Assistive Device None Gait Level Surface Assistance Stand by Pattern Decreased ton;R Decreased step length;L Decreased step length Balance Activity Standing Surface level surface Standing Activity static;wt shift;Other (comment) (B LE ther ex) Standing Time 11-15 min Standing Assistance SBA;w/UE support Activity Tolerance Activity Tolerance fair;+;short of breath LE Ther Ex AROM Right;Left;6 - 10 reps;Standing *ASSESSMENT Response to Treatment Fair Assistance Needed Occasional verbal cues (10-25%);Occasional tactile cues (10-25 %) Problem List Activity limitations;Activity tolerance;Balance;Bed mobility;Gait;D ecreased gait speed;Transfers;Strength;Pain Plan PT Treatment Interventions Functional transfer training;LE strengthening/ROM;End urance training;Patient/family training;Equipment eval/education;Bed mobility;Ga it training;Compensatory technique education;Balance;Safety training;Progressive Mobility Progress Progressing toward goals PT Frequency 5-7x/wk PT Nursing Communication amb in hallway 3x daily Discharge Recommendations Plan Continued PT;Safe to DC home with family support Wm. Steven Araujo PTA III Physical Therapist Stained Glass Installer [employer] phone: [phone] * End of Shift Note - Alma Green RN - 12/05/2019 5:23 AM CDT End of Shift Summary and Plan of Care No significant events this shift. Pt remains ST low 100s/high 90s at rest. RA, O 2 stable. Pt reports back pain and abd cramping, passing flatus. Oxy 5mg given x 1, sternal pain "tolerable, but okay" per pt report. Pt denies needs at end of shift, will continue to monitor. Goals per Patient Condition Fall Prevention Plan Patient will remain free from injury related to falls. See the Daily cares/safety flowsheet for intervention documentation. Skin Integrity Plan Patient skin integrity maintained. See integumentary josé wsheet for intervention documentation. Goals/Plan for Shift Patient/Family stated goal for shift: pain control Nursing goal for shift: ensure sternal harness in place, control pt pain, monito r for ectopy on tele Plan: monitor tele for ectopy, administer analgesics as prescribed for pain, per form pain assx Goals/Plan for Hospital Stay Patient/Family stated goal for hospital stay: "feel better so I can go home" Nursing goal for hospital stay: Stable VS, pain control, remain injury free, inc rease motility, meet all requirements for discharge. Plan: Monitor VS, manage pain, maintain pt safety. * End of Shift Note - Jody Lagos RN - 12/04/2019 5:55 PM CDT End of Shift Summary and Plan of Care ST on tele with rates between low 100s and 120s. Metoprolol increased to 50 mg t his AM. Toprol XL 100 mg ordered BID. First dose given this evening. Weaned to R A. Encouraged aggressive pulmonary toilet. Pain controlled with PO oxycodone. Am bulated in halls x1 and showered with staff today. Loose BMS x2 today. Passing f latus. Simethicone given for gas with relief. Poor appetite. Ensure ordered. Cou madin 7.5 mg given. Goals per Patient Condition Fall Prevention Plan Patient will remain free from injury related to falls. See the Daily cares/safety flowsheet for intervention documentation. Skin Integrity Plan Patient skin integrity maintained. See integumentary josé wsheet for intervention documentation. Goals/Plan for Shift Patient/Family stated goal for shift: pain control Nursing goal for shift: wean O2; increase activity; OOBTC for all meals Plan: aggressive pulmonary toilet; oxycodone q4 PRN; pre-therapy pain medication Goals/Plan for Hospital Stay Patient/Family stated goal for hospital stay: "feel better so I can go home" Nursing goal for hospital stay: Stable VS, pain control, remain injury free, inc rease motility, meet all requirements for discharge. Plan: Monitor VS, manage pain, maintain pt safety. * Therapy Note - Jm Araujo, DRAFTER (CAD) ELECTRONIC - 12/04/2019 1:58 PM CDT 12/04/19 1001 PT Visit Info Patient/Family Reports Pt is agreeable to PT. PT Received On 12/04/19 Precautions Fall Risk Yes Supplemental Oxygen no Vital Signs SpO2 93 % O2 Device None (Room air) Bed Mobility Supine to Sit Mod assist to right;Verbal cueing required;HOB elevated Sit to Supine Unable to assess (Comment) (pt up to bedside chair at completion of session) Bed Mobility Comments demonstrated proper technique to perform bed mobility once pt is able to tolerated laying flat in bed at home. Transfers Assistive Device None Sit to Stand Transfers Stand by assistance Stand to Sit Transfers Stand by assistance Gait Gait Distance (Feet) 400 Assistive Device None Gait Level Surface Assistance Stand by Pattern Decreased ton;R Decreased step length;L Decreased step length Balance Activity Standing Surface level surface Standing Activity static;wt shift;Other (comment) (B LE ther ex) Standing Time 11-15 min Standing Assistance SBA;w/UE support Activity Tolerance Activity Tolerance fair;short of breath LE Ther Ex AROM Right;Left;6 - 10 reps;Standing Ankle pump Bilateral;6 - 10 reps;Sitting LAQ Right;Left;6 - 10 reps;Sitting Hip Flexion Right;Left;6 - 10 reps;Sitting (MIP) *ASSESSMENT Response to Treatment Fair Assistance Needed Occasional verbal cues (10-25%);Occasional tactile cues (10-25 %) Problem List Activity limitations;Activity tolerance;Balance;Bed mobility;Gait;D ecreased gait speed;Transfers;Strength;Pain Plan PT Treatment Interventions Functional transfer training;LE strengthening/ROM;End urance training;Patient/family training;Equipment eval/education;Bed mobility;Ga it training;Compensatory technique education;Balance;Safety training;Progressive Mobility Progress Progressing toward goals PT Frequency 5-7x/wk Discharge Recommendations Plan Continued PT Wm. Steven Araujo PTA III Physical Therapist Stained Glass Installer [employer] phone: [phone] * Discharge Planning - Savita Tarango RN - 12/04/2019 10:10 AM CDT Discharge Planning Interventions General Discharge Note Anticipated discharge disposition: Home Self Care Additional discharge planning information: POD # 3 Mech AVR Home on coumadin. INR 1.2 Weaning O2 today. PCP Dr Isidra Tobar [facility] Coin Machine Service Repairer: Dr Reji Jacob [facility] Contact: Dr Tone Medina see patient in [facility]. Contact: Patient'S/O Misty Dave Will provide ride home. Friends will stay with him at time of DC. Plan home self care. Radha Tarango RN [facility] [phone] * End of Shift Note - Alma Green RN - 12/04/2019 5:14 AM CDT End of Shift Summary and Plan of Care Pt required multiple doses of PRN pain medications through shift; oxy 10mg x 3 a nd dilaudid x 1 for breakthrough pain. 0309 this nurse paged CTS Fellow for pt sustaining HR 120s at rest, BP 102/63, E CG completed, awaiting return page. Repaged at 0420, page returned by Dr Roxane hudson @2332, gave TO to give Metoprolol early 0600. Spoke with YARI Aragon this AM, gav e VO to increase Metoprolol 50mg at 0600. Pt uses sternal harness appropriately. Steady gait, slow. Loose BM x 3 this shif t, voiding adequately. Continued to encourage pt to limit free water due to low NA 129. Pt tele continu es SR/ST low 120s. 3L NC, HOB 45 degrees. INR 1.2 this AM. Will continue to brandan tor. Goals per Patient Condition Skin Integrity Plan Patient skin integrity maintained. See integumentary jsoé wsheet for intervention documentation. Goals/Plan for Shift Patient/Family stated goal for shift: pain control Nursing goal for shift: assist with pain control Plan: administer analgesics as prescribed PRN, assc chest sternal pain as needed , ptovide pillow support, encourage use of chest harness Goals/Plan for Hospital Stay Patient/Family stated goal for hospital stay: "feel better so I can go home" Nursing goal for hospital stay: Stable VS, pain control, remain injury free, inc rease motility, meet all requirements for discharge. Plan: Monitor VS, manage pain, maintain pt safety. * End of Shift Note - Dinora Ledezma RN - 12/03/2019 6:05 PM CDT End of Shift Summary and Plan of Care Slow to progress. Needs lots of motivation. Sat up in chair all day today. Still fairly drowsy. Pain better controlled today. Did walk in hallway once and walked in room with PT. Refused shower today. Remains on 3L of O2. Encouraging aggres sive pulmonary toilet. IV lasix x1 given today. Low grade temp at noon, but afte r walking and IS use, came back down. Has been ST on tele all day, rates now 120 s and 140s-150s with activity. [employer] notified and ordered a 1x dose of IV metoprolo l and increased metoprolol for this evening. Was notified by tele this evening t hat patient had a run of junctional tachycardia today (see media). Starting to p ass gas but still distended and has poor appetite. Sodium 129 this am. Educated patient to decrease fluid intake especially free water. Patient still drinking l ots of water d/t "throat dryness." Coumadin increased to 7.5mg. Significant othe r updated on progress. Goals per Patient Condition Skin Integrity Plan Patient skin integrity maintained. See integumentary josé wsheet for intervention documentation. Goals/Plan for Shift Patient/Family stated goal for shift: to get IS to 1250, walk more Nursing goal for shift: increase activity, VSS, pain management, wean O2, aggres sive bowel regimen Plan: walk in hallway today, routine vitals and continuous tele monitoring, pt v erbalizes good pain control, IS 10x/hr, cough and deep breathe Goals/Plan for Hospital Stay Patient/Family stated goal for hospital stay: "feel better so I can go home" Nursing goal for hospital stay: Stable VS, pain control, remain injury free, inc rease motility, meet all requirements for discharge. Plan: Monitor VS, manage pain, maintain pt safety. * Therapy Note - Jm Araujo, DRAFTER (CAD) ELECTRONIC - 12/03/2019 4:30 PM CDT 12/03/19 1425 PT Visit Info Patient/Family Reports Pt is agreeable to PT. Pt reports sleeping in recliner up on dc home. PT Received On 12/03/19 Precautions Fall Risk Yes Supplemental Oxygen yes Transfers Assistive Device None Sit to Stand Transfers Min assist;Verbal cueing required Stand to Sit Transfers Min assist;Verbal cueing required Transfer Comments performed multiple transfers this afternoon Gait Gait Distance (Feet) 35ft Assistive Device None Gait Level Surface Assistance Moderate;Verbal cueing required Pattern Decreased ton;R Decreased step length;L Decreased step length;Increa sed lateral deviation Balance Activity Standing Surface level surface Standing Activity static;wt shift;ADL (using urinal) Standing Time 0-5 min Standing Assistance min assist Activity Tolerance Activity Tolerance fair;-;short of breath LE Ther Ex AROM Right;Left;6 - 10 reps;Sitting *ASSESSMENT Response to Treatment Fair Assistance Needed Occasional verbal cues (10-25%);Occasional tactile cues (10-25 %) Problem List Activity limitations;Activity tolerance;Balance;Bed mobility;Gait;D ecreased gait speed;Transfers;Strength;Pain Plan PT Treatment Interventions Functional transfer training;LE strengthening/ROM;End urance training;Patient/family training;Equipment eval/education;Bed mobility;Ga it training;Compensatory technique education;Balance;Safety training;Progressive Mobility Progress Progressing toward goals PT Frequency 5-7x/wk Discharge Recommendations Plan Continued PT . Steven Araujo PTA III Physical Therapist Stained Glass Installer Sharmin phone: [phone] * End of Shift Note - Mayela Barksdale RN - 12/03/2019 5:19 AM CDT End of Shift Summary and Plan of Care Aox4. ST; HR 100s-110s. 3L HF nc. Encouraged pt to use IS and deep breath while awake. UOP adequate; still not passing gas, but c/o of belching. Pain is improvi ng w/ PRN oxy, toradol, and scheduled tylenol. Pt slept most of the night in the recliner, as it helps alleviate pain. Continue POC. Goals per Patient Condition Goals/Plan for Shift Patient/Family stated goal for shift: Rest and pain control. Nursing goal for shift: Stable VS/resp status, manage pain, remain injury free. Plan: Monitor VS and pain, PRN pain medications, maintain pt safety. Goals/Plan for Hospital Stay Patient/Family stated goal for hospital stay: "feel better so I can go home" Nursing goal for hospital stay: Stable VS, pain control, remain injury free, inc rease motility. Plan: Monitor VS, manage pain, maintain pt safety. * End of Shift Note - Dinora Ledezma RN - 12/02/2019 6:50 PM CDT End of Shift Summary and Plan of Care Patient transferred to floor today. Doing well. CTs, Chang, and wires all d/c'd in ICU. +void. Not passing gas yet but appetite improving per patient. Pain controlled with current regimen. 3L of O2 and working on IS and coughing/deep breathing. ST on tele. Received first dose of coumadin. Continue POC. Goals/Plan for Shift Patient/Family stated goal for shift: pain control Nursing goal for shift: pain control, progress mobility, wean O2 requirements, t ransfer out of ICU Plan: PRN pain medications, mobilize as tolerated, pulmonary hygiene * Care Progression Initial Assessment - Ericka Woods RN - 12/02/2019 2:14 PM CDT Care Progression Initial Assessment Note DC Plan: Anticipate dc to home with support from friend who will stay with him. S.O can provide ride home. Care progression consulted due to pt living alone. Spoke to his contact which is his Yuly.Jack Dave via phone as am working re [employer]. S.O lives in separate residence but she and a friend will be providing 24/7 a sst at dc. Pt works FT and indep/ active prior to surgery No Hx amb devices/ DME/ Oxygen/ PAC facilities/ rehab PCP confirmed as Nichol Tobar, [facility] , CHENTE Escalera Coin Machine Service Repairer Sarahi Denis ; Additional information: Mech AVR. Hx Bicuspid AV/ , AAA, VT/ Ablation RODNEY Goodrich helper coordinator, Line Installer Trolley medical team, Pulp Mill Operator met for patient rounds to discuss progression of care and dc planning. Referral to see patient was placed by Referral Source: Care Progression , Referral Reason: Discharge planning, Initial Assessment Initial assessment completed and Information obtained from: : Geoffrey Dave Introduced self and purpose of meeting with the patient and is agreeable to inte rview at this time. Patient's Living Arrangement: Apartment, Alone Patients support system has been Support System: Spouse/significant other, Fr iends/neighbors Patient has verbalized the following concerns at discharge: Family Concerns: No Pt has Payor: [facility] / Plan: OUT OF AREA PREF CARE / Product Type: *No Product type* / Legal Information: Patient does not have advance directive Discussion of advance directives and information provided: Yes Is the patient interested in establishing an advance directive?: No, the patient would not like to discuss establishing an advance directive Healthcare Agent Appointed: Yes Healthcare Agent's Name: Misty Dave (geoffrey.) Healthcare Agent's Patient currently uses at home: Assistive Devices: None Respiratory items:: (Denies) Patient states their Income Source: Employed. , Income/Expense Information: Income exceeds expenses Resources Available: Rx benefits Verified that patients primary care physician is Nichol Tobar APRN and dilip ves their medications from [facility] - [place], [place] - [address] [address] Facesheet verified. Ericka Woods RN, BSN Pulp Mill Operator [phone] * End of Shift Note - Priscilla High RN - 12/02/2019 1:50 PM CDT End of Shift Summary and Plan of Care Pt POD #1 from mechanical AVR. Pt OOB to chair, ambulated in the [place]ward w/ PT. Pt remained painful, given PRN oxy and dilaudid; toradol and tylenol scheduled. Swa n torrie, central line, art line, chang, chest tubes and pacer wires d/c'd. Pt was diuresed with 20mg lasix, UOP. Pt has minimal appetite, and complained of cynthia sea which was relieved with zofran. Pt remains on 4L NC, encouraged coughing and deep breathing & I.S. use. Transferred to SICC Goals per Patient Condition Skin Integrity Plan Patient skin integrity maintained. See integumentary josé wsheet for intervention documentation. Goals/Plan for Shift Patient/Family stated goal for shift: pain control Nursing goal for shift: pain control, progress mobility, wean O2 requirements, t ransfer out of ICU Plan: PRN pain medications, mobilize as tolerated, pulmonary hygiene Goals/Plan for Hospital Stay Nursing goal for hospital stay: Plan: * Therapy Note - Denise Malik PT - 12/02/2019 1:47 PM CDT 12/02/19 1347 PT Visit Info Initial PT Visit On 12/02/19 Assessed for Rehab Yes Past medical history reviewed through chart review: Yes Referral Reason "if ambulatory devices necessary" Medical Dx per Physician AVR Ordering practitioner CHATA Chavez Comorbidities pertaining to therapy diagnosis Past Medical History: Diagnosis Date Anxiety Aortic stenosis due to bicuspid aortic valve Mean AoV gradient 45 07/22 Ascending aorta dilatation (HCC) 06/2019 5.0 cm ascending aorta; 3.5 cm at sinuses of Valsalva Depression Morbid obesity ([facility]) VT (ventricular tachycardia) ([facility]) 05/2018 with aberrancy Patient/Family Reports Pt seen bedside with RN approval. Pt c/o feeling SOA with activity (note: pt has to wear mask when OOR). Pt c/o pain with changes in posi tion. PT Received On 12/02/19 Precautions Fall Risk Yes Supplemental Oxygen 4L NCO2 Other Sternal prec. Home Living Home Layout One level;Able to live on main level with bedroom/bathroom Stairs to enter (none) Lives With Alone Home Assistive Device None Additional Comments Has a friend to help him upon dc Prior Function Level of [place] Independent with ADLs;Independent with functional transfer s;Independent with ambulation;Independent with homemaking Receives Help From Friend(s) Vital Signs SpO2 92 % O2 Device High flow nasal cannula O2 Flow Rate (L/min) 4 L/min Pulse (!) 131 (with activity ) Heart Rate Source Monitor Cognition Overall Cognitive Status WF Bed Mobility Supine to Sit Mod assist to right;Verbal cueing required;HOB elevated Sit to Supine Mod assist to left;Verbal cueing required Transfers Assistive Device (cart) Sit to Stand Transfers Min assist;Assistive Device Stand to Sit Transfers Min assist;Assistive Device Gait Gait Distance (Feet) 40 Assistive Device (cart) Gait Level Surface Assistance Minimal (CGA) Pattern Decreased ton;R Decreased step length;L Decreased step length;Increa sed base of support;Decreased heel strike Gait Comments x4 standing rest breaks during due to increased WOB / SOA Activity Tolerance Activity Tolerance fair;-;short of breath RLE Assessment RLE Assessment WFL LLE Assessment LLE Assessment WFL Patient Education Patient Education PT POC, sternal precautions Response to education verbalizes understanding;needs further review *ASSESSMENT Learning Barriers None Response to Treatment Fair;Improved mobility Assistance Needed Occasional verbal cues (10-25%);Occasional tactile cues (10-25 %) Problem List Activity limitations;Activity tolerance;Balance;Bed mobility;Gait;D ecreased gait speed;Transfers;Strength;Pain Clinical presentation Evolving Timeframe Timeframe STG 4 visits Timeframe LTG 8 visits GOALS Goals Bed Mobility;Transfers;Gait distance Bed Mobility Goals Bed Transfer STG Goal Status New goal Bed Mobility STG Supervision Bed Transfer LTG Goal Status New goal Bed Mobility LTG Modified independent Transfer Goals Transfer STG Goal Status New goal Transfer STG Supervision Transfer STG - Assistive Device Least restrictive device Transfer LTG Goal Status New goal Transfers LTG Modified independent Transfer LTG - Assistive Device Least restrictive device Gait Distance/Assist Goals Gait Distance STG (ft) 80 ft Gait Distance STG Goal Status New goal Gait Assist STG Minimum assistance Gait STG - Assistive Device Least restrictive device Gait Distance LTG (ft) 200 ft Gait Distance LTG Goal Status New goal Gait Assist LTG Standby assist Gait LTG - Assistive Device Least restrictive device *PLAN Pt/Family Goal back to normal Pt/Family involved in Plan of Care No family present PT Treatment Interventions Functional transfer training;LE strengthening/ROM;End urance training;Patient/family training;Equipment eval/education;Bed mobility;Ga it training;Compensatory technique education;Balance;Safety training;Progressive Mobility PT Frequency 5-7x/wk PT Nursing Communication Pt amb 40' with CGA, cart. Bed mob: mod A. Transfers: C GA. Discharge Recommendations Plan Continued PT CCx1: For time gathering cart, oxygen, prepping lines, etc. Denise Malik PT, DPT Physical Therapist Voalte: [phone] * Therapy Note - Denise Malik PT - 12/02/2019 11:20 AM CDT 12/02/19 1120 PT Visit Info Attempted but was unable to see patient (date) 12/02/19 Reason patient was not seen Pt refused PT reason not seen - extended comment Pt declines and prefers to complete PT rita luation this afternoon. PT will return between [phone]. Notified RN of PT plan . Denise Malik PT, DPT Physical Therapist Voalte: [phone] * End of Shift Note - Adair Gastelum RN - 12/02/2019 5:32 AM CDT End of Shift Summary and Plan of Care Pt on 4LNC. VSS. Insulin drip at 3, IVF 25. Pt ambulated from chair to bed at 00 00, demonstrating adequate strength. Urine out ~75-100ml/hr. CT out ~10-20/hr. P ain ladder initiated. Pain controled with tylenol and prn oxy/dilaudid. Goals per Patient Condition Skin Integrity Plan Patient skin integrity maintained. See integumentary josé wsheet for intervention documentation. Goals/Plan for Shift Patient/Family stated goal for shift: keep pt comfortable Nursing goal for shift: Improve pain control Plan: administer medications as prescribed Goals/Plan for Hospital Stay Nursing goal for hospital stay: Plan: * End of Shift Note - Alma Mcwilliams RN - 12/01/2019 3:38 PM CDT End of Shift Summary and Plan of Care Pt out of OR @ 1215 on TXA and Propofol . Initial index 1.4; 500 albumin given w ith a recheck CI of 2; 1600 CI 1.97. Extubated at 1300 to 11L oxymask; weaned to 4L HFNC . Insulin gtt started. HOME HEALTH MANAGER: 250. UOP: 1.7L. OOBTC @ 1730. Sys goal < 140. Goals per Patient Condition Skin Integrity Plan Patient skin integrity maintained. See integumentary josé wsheet for intervention documentation. Goals/Plan for Shift Patient/Family stated goal for shift: Nursing goal for shift: Plan: Goals/Plan for Hospital Stay Nursing goal for hospital stay: Plan: * Therapy Note - Sari Bhardwaj, PT - 12/01/2019 1:30 PM CDT 12/01/19 1330 PT Visit Info Attempted but was unable to see patient (date) 12/01/19 Reason patient was not seen Other (comment) PT reason not seen - extended comment Pt just had surgery earlier today. PT will follow up tomorrow. Sari Bhardwaj,PT,DPT Physical Therapist Voalte Number: [phone] * Brief Operative Note - Reuben Li MD - 12/01/2019 12:21 PM CDT Brief Operative Note Trupti Juarez 12/01/2019 Event Time In Procedure / Incision Start 09 Pre-op Diagnosis: Aortic valve stenosis, bicuspid valve Post-op Diagnosis: same Procedure: AORTIC VALVE REPLACEMENT WITH 25MM [facility] JORDAN'S MECHANICAL, N/A ECHOCARDIOGRAM, TRANSESOPHAGEAL, N/A Surgeon(s) and Role: * Traci Li MD - Primary Anesthesia Type: General Staff: Sample Carrier: Cyndy Kendall RN; Melva Nair RN Dosimetrist: Christiano Quinonez CCP Physician Stained Glass Installer: KIM Kessler-C Scrub Person: Estrella Pizano RN Anesthesiologist: Rusty Ventura MD Anesthesiologist Stained Glass Installer: JOSÉ ANTONIO Ron Findings: Estimated Blood Loss: Specimens: . ID Source Type Tests Collected By Collected At 1 Aortic Valve Tissue TISSUE PATHOLOGY OR BIOPSY Reuben Li MD 12/01/19 1038 Description: AORTIC VALVE Comment: Pre-op diagnosis: AORTIC STENOSIS Implants: @ORIMPLANT@ Complications: PPE Statement: 2 chest tubes 1 A and 2 V pacing wires Dictation # [id number] Traci Li Date: 12/01/2019 Time: 12:21 PM * Operative Note - Reuben Li MD - 12/01/2019 12:21 PM CDT Name: TRUPTI JUAREZ MRN: Date of : 1985 Attending Physician: Traci Li MD Date of Procedure: 12/01/2019 DATE OF OPERATION: 12/01/2019 PREOPERATIVE DIAGNOSES: Symptomatic aortic valve stenosis. POSTOPERATIVE DIAGNOSIS: Symptomatic aortic valve stenosis. OPERATION: Aortic valve replacement ([employer] [place] Sodus mechanical aortic valve, alisson bowles #[id number] serial #[id number]). SURGEON: Dr. Glen Li. DOCUMENT PROCESSING SPECIALIST: KIM Martinez INDICATIONS FOR OPERATION: This 34-year-old man presented with symptomatic ameya re aortic valve stenosis. The mean pressure gradient across the aortic valve at the time of cardiac catheterization last week was greater than 40 mmHg. By ech ocardiography, his aortic valve was bicuspid. His left ventricular function was normal. He had no significant cardiac valve disease. On an echocardiogram and on an aortogram he was said to have an ascending aortic aneurysm, but on three r ecent CT scans of the chest there was no morphologic evidence of an aneurysm and the maximal diameter of there ascending aorta was 4.3 cm. Coronary arteriography was negative. His right coronary artery was nondominant. The patient previously had ablation of symptomatic ventricular tachycardia. He is morbidly obese (BMI 43). His operation was on hold because of the Covid crisis, but we felt that he could not safely wait until the crisis had abated and hence he came today to on am admission basis to undergo operation. Dr. Perales concurred with the decision to proceed now; he also concurred with the decision to not replace the ascending aorta. OPERATIVE DICTATION: Following the induction of general anesthesia, a transesop hageal echocardiogram probe was inserted by Dr. Jeffries without difficulty. The aortic valve was bicuspid. The aortic valve was severely stenotic and there was significant aortic insufficiency as well. His left ventricular contractility w as excellent. There was no significant cardiac valve disease. There was an int act sinotubular junction. Distal to the sinotubular junction, the maximum diame ter of the aorta on the ISABELLA was 4.1 cm. Once the pericardium was opened, epiaor tic ultrasound was used and measurements of the aortic diameter were taken in th e proximal (4.0), mid (4.0), and distal ascending aorta (4.35 cm). These measure ments confirmed the CT scan findings. The patient's chest, abdomen, and lower e xtremities were sterilely prepared and draped. The chest was opened through a m edian sternotomy. The pericardium was opened in the midline. The external appe arance of heart was normal. A systolic thrill was palpable on the ascending aor ta. Following complete systemic heparinization, perfusion cannulae were inserte d through pursestring sutures into the ascending aorta and through the right atr ial appendage. Cardiopulmonary bypass was begun. The ascending aorta was cross clamped. Cold blood cardioplegia was infused antegrade and retrograde. The ad ministration of cardioplegia was repeated at intervals during the period of aort ic clamping. A transverse aortotomy incision was made. The aortic valve was bi cuspid and it was markedly thickened and severely stenotic. The valve was excis ed. Calcium was debrided from the annulus. There was a bar of calcium extendin g down on the intraventricular septum, subjacent to the right coronary artery, w hich was debrided. A series of 13 pledgeted 2-0 Ethibond mattress sutures were then passed through the annulus with the pledgets on the ventricular side of the annulus. The sutures were then passed through the sewing material of a 25 mm S t. Jrodan Sodus mechanical prosthesis. This valve was calculated to provide an e ffective valve orifice area of 2.7 square cm. The valve seated well. The valve mechanism worked freely. The coronary ostia were unobstructed. The aortotomy was closed in two layers using running Prolene suture. As the aortotomy closure was being closed, the left ventricle was insufflated with carbon dioxide. Before the suture was tied, the heart was filled with blood, allowing air to escape. With the patient in Trendelenburg position and suction applied to the aortic ve nt, the aortic crossclamp was removed. Normal sinus rhythm returned spontaneous ly. With the patient rewarmed to 37 degrees centigrade and the heart in normal sinus rhythm, cardiopulmonary bypass was discontinued without difficulty. The a ortic valve prosthesis functioned normally, there was no residual intracardiac a ir, there was no aortic insufficiency, and there was no evidence of a ventricula r septal defect. The right atrial cannulation site was doubly ligated. The hep juan was reversed with protamine. The aortic cannulation site was repaired with a Prolene mattress suture. A temporary epicardial pacemaker wire was placed on the right atrium and two temporary epicardial pacemaker wires were placed on the right ventricle. The chest was drained with two Steven drains. The pericardium was loosely reapproximated. The sternum was closed using a combination of #6 [id number] circumferential stainless steel wire and double stranded stainle ss steel wire. The remainder of the incision was closed in layers using absorba ble suture. At the end of the operation, the patient was in normal sinus rhythm with excellent hemodynamics. Traci Li MD [id number] CC: cc: Tone Medina MD, Reji Jacob MD documented in this encounter Plan of Treatment Order Schedule Name Type Priority Associated Diag noses Expected: 12/08/2019, Expires: 1 Prothrombin Time/INR Lab Routine S/P mecha nical AVR (aortic valve replacement) Order Schedule Name Type Priority Associated Diag noses 1 Occurrences starting 12/01/2019 until 06/02/2020 Amb Referral To Cardiac Outpatient Routine S/P me chanical AVR Rehab Referral (aortic valve replacement) documented as of this encounter Procedures Comments Procedure Name Priority Date/Time Associated Diag nosis PROTHROMBIN TIME/INR Routine 12/07/2019 2:26 AM CDT PROTHROMBIN TIME/INR Routine 12/06/2019 12:31 AM CDT COMPLETE BLOOD COUNT Routine 12/06/2019 12:31 AM CDT BASIC METABOLIC PANEL Routine 12/06/2019 12:31 AM CDT PROTHROMBIN TIME/INR Routine 12/05/2019 12:45 AM CDT POTASSIUM Routine 12/05/2019 12:45 AM CDT XR CHEST 2 VIEWS (PA AND Routine 12/04/2019 LATERAL) 7:12 AM CDT ECG Routine 12/04/2019 3:39 AM CDT PROTHROMBIN TIME/INR Routine 12/04/2019 1:15 AM CDT COMPLETE BLOOD COUNT Routine 12/04/2019 1:15 AM CDT BASIC METABOLIC PANEL Routine 12/04/2019 1:15 AM CDT GLUCOSE POC [...] GLUCOSE POC Routine 12/01/2019 11:53 PM CDT COMPLETE BLOOD COUNT Routine 12/01/2019 11:51 PM CDT BASIC METABOLIC PANEL Routine 12/01/2019 11:51 PM CDT GLUCOSE POC Routine 12/01/2019 9:53 PM CDT GLUCOSE POC Routine 12/01/2019 8:53 PM CDT GLUCOSE POC Routine 12/01/2019 7:55 PM CDT POTASSIUM Timed 12/01/2019 6:12 PM CDT GLUCOSE POC Routine 12/01/2019 6:11 PM CDT GLUCOSE POC Routine 12/01/2019 5:07 PM CDT GLUCOSE POC Routine 12/01/2019 4:04 PM CDT GLUCOSE POC Routine 12/01/2019 3:01 PM CDT GLUCOSE POC Routine 12/01/2019 2:02 PM CDT PROTHROMBIN TIME/INR Routine 12/01/2019 2:00 PM CDT XR CHEST SINGLE VIEW STAT 12/01/2019 FRONTAL 1:31 PM CDT HGB K POC (H ONLY) Routine 12/01/2019 1:09 PM CDT GLUCOSE POC Routine 12/01/2019 1:07 PM CDT RESPIRATORY COMMUNICATION Routine 12/01/2019 12:28 PM CDT PULSE OXIMETRY, Routine 12/01/2019 CONTINUOUS 12:28 PM CDT LYTES//HGB/CA POC Routine 12/01/2019 10:51 AM [...] GLUCOSE POC Routine 12/01/2019 9:51 AM CDT GLUCOSE POC Routine 12/01/2019 9:28 AM CDT ACTIVATED CLOTTING TIME Routine 12/01/2019 POC 9:28 AM CDT GLUCOSE POC Routine 12/01/2019 7:42 AM CDT RETYPE PATIENT ABORH Routine 12/01/2019 7:32 AM CDT ECG STAT 12/01/2019 7:31 AM CDT HEMOGLOBIN A1C Routine 12/01/2019 7:23 AM CDT IR OUTSIDE IMAGES FOR Routine 12/01/2019 Encounte r for PACS 7:23 AM CDT consultation RBCS 2 UNITS STAT 12/01/2019 7:10 AM CDT ANTIBODY SCREEN STAT 12/01/2019 7:10 AM CDT ABORH TYPE STAT 12/01/2019 7:10 AM CDT XMATCH STAT 12/01/2019 6:25 AM CDT documented in this encounter Results * Prothrombin Time/INR--if patient on warfarin (12/07/2019 2:26 AM CDT) Only the most recent of 7 results within the time period is included. Protime 21.1 (H) 11.4 - 15.0 sec [facility] INR 1.9 (H) 0.8 - 1.2 [facility] Specimen Blood Performing Organization Address City/State/Zipcode Ph one Number [address] [address] LABORATORIES [facility] [address] [place] [address] * Basic Metabolic Panel (12/06/2019 12:31 AM CDT) Only the most recent of 4 results within the time period is included. Sodium 134 133 - 147 MEQ/L [facility] Potassium 3.6 3.5 - 5.3 MEQ/L [facility] Chloride 98 96 - 112 MEQ/L [facility] Carbon Dioxide 31 20 - 32 MEQ/L [facility] Anion Gap 4 (L) 5 - 17 [facility] Calcium 8.7 8.4 - 10.5 mg/dL [facility] Glucose 111 (H) 70 - 100 mg/dL [facility] Blood Urea 16 7 - 26 mg/dL [facility] Creatinine 0.8 0.6 - 1.3 mg/dL [facility] eGFR Male AA >130 60 - 200 [facility] mL/min/1.73sq [facility] Lab eGFR Male 112 60 - 200 [facility] Non-AA mL/min/1.73sq [facility] Lab Specimen Blood Performing Organization Address City/[facility] [place] [address] LABORATORIES [facility] [address] [place] [address] * Complete Blood Count (12/06/2019 12:31 AM CDT) Only the most recent of 4 results within the time period is included. WBC 9.27 4.00 - 11.00 TH/uL [facility] RBC 3.56 (L) 4.31 - 5.84 MIL/uL [facility] Hemoglobin 10.5 (L) 13.0 - 17.0 g/dL [facility] Hematocrit 30 (L) 40 - 50 % [facility] MCV 83 80 - 99 fL [facility] MCH 30 27 - 34 pg [facility] MCHC 36 32 - 36 % [facility] RDW 12.5 11.5 - 14.5 % [facility] Platelet Count 213 140 - 400 TH/uL [facility] MPV 9.8 9.4 - 12.3 fL [facility] Nucleated RBCs 0 0 - 0 /100 [facility] Specimen Blood Performing Organization Address City/[facility] Ph one Number [place] [address] [place] [address] LABORATORIES [facility] [address] [place] [address] * Potassium (12/05/2019 12:45 AM CDT) Only the most recent of 4 results within the time period is included. Potassium 3.7 3.5 - 5.3 MEQ/L [facility] Specimen Blood Performing Organization Address City/State/Zipcode Ph one Number [facility] [address] [place] [address] LABORATORIES [facility] [address] [place] [address] * XR Chest 2 views (PA and lateral) (12/04/2019 7:12 AM CDT) Specimen Impressions Performed At Left worse than right bibasilar subsegmental atelecta ses. LEFTYSON Mildly interstitial pulmonary edema. READING SITE: Home, due to Covid-19 Narrative Performed At Patient: TRUPTI JUAREZ Sex#: M #: 1985 Atylor# : [id number] Location: [address]- Acces eduarda#: [id number] Procedure Requested: [id number] XR CHEST 2 VIEWS (PA AND LATERAL) [...] - 12/04/2019 7:31 AM CDT Patient: TRUPTI JUAREZ Sex#: M #: 1985 Taylor#: [id number] Location: [address] H410- Procedure Requested: [id number] XR CHEST 2 VIEWS (PA AND LATERAL) [...] Address City/State/Zipcode Ph one Number [place] * Electrocardiogram (ECG) (12/04/2019 3:39 AM CDT) Only the most recent of 2 results within the time period is included. QRSd 102 [facility] QT 328 [facility] QTC 464 [facility] ECGHR 120 [facility] ECGPR 148 [facility] Specimen Narrative Performed At [facility] Test Date: 2019-12-04 Pat Name: TRUPTI JUARZE Department: [address] Room: 10 Gender: Male Telemetry Rn: [id number] : 1985 Requested By: PALMA RAMÍREZ Order Number: [id number] Reading MD: Ronnell Damian Measurements Intervals [place] Rate: 120 P: 37 TN: 148 QRS: 15 QRSD: 102 T: 29 QT: 328 QTc: 464 Interpretive Statements SINUS TACHYCARDIA PROBABLE LEFT VENTRICULAR HYPERTROPHY ST ELEVATION, CONSIDER PERICARDITIS Electronically Signed On 12-04-2019 10:36 :48 CDT by Ronnell Damian Procedure Note Interface, External Ris In - 12/04/2019 10:36 AM CDT [facility] Test Date: 2019-12-04 Pat Name: TRUPTI JUAREZ Department: [address] Room: [facility] Gender: Male Telemetry Rn: [id number] : 1985 Requested By: PALMA RAMÍREZ Order Number: [id number] Reading MD: Ronnell Damian Measurements Intervals [place] Rate: 120 P: 37 TN: 148 QRS: 15 QRSD: 102 T: 29 QT: 328 QTc: 464 Interpretive Statements SINUS TACHYCARDIA PROBABLE LEFT VENTRICULAR HYPERTROPHY ST ELEVATION, CONSIDER PERICARDITIS Electronically Signed On 12-04-2019 10:36:48 CDT by Ronnell Damian Performing Organization Address [facility] one Number [facility] * GLUCOSE POC (12/03/2019 7:42 AM CDT) Only the most recent of 21 results within the time period is included. Glucose POC 134 (H) 70 - 100 mg/dL [facility] Specimen Performing Organization Address [facility] one Number [address] [address] LABORATORIES * XR Chest single view frontal (12/02/2019 9:40 AM CDT) Only the most recent of 3 results within the time period is included. Specimen Impressions Performed At Mildly improved interstitial pulmonary edema. Mild bi basilar MCKESSON subsegmental atelectases. Probable smal l left pleural effusion. Support apparatus as described. READING SITE: Home, due to Covid-19 Narrative Performed At Patient: TRUPTI JUAREZ Sex#: M #: 1985 Taylor# : [id number] Location: [address] ICU [id number] Access ion#: [id number] Procedure Requested: [id number] XR CHEST SINGLE VIEW FRONTAL Reason for [...] - 12/02/2019 10:18 AM CDT Patient: TRUPTI JUAREZ Sex#: M #: 1985 Taylor#: [id number] Location: [address] ICU [id number] Procedure Requested: [id number] XR CHEST SINGLE VIEW FRONTAL Reason for Exam: chest tube removal Exam Ordered: 12/02/2019 09 Exam Date/Time: 12/02/2019939 Begin exam date/time: 12/02/2019929 XR CHEST SINGLE VIEW FRONTAL INDICATION: chest [...] Home, due to Covid-19 Performing Organization Address City/[facility] Ph one Number JENNIFER * HGB/K POC (12/01/2019 1:09 PM CDT) Pathologist [facility] Hemoglobin 15.7 13.0 - 17.0 g/dL [facility] Potassium 5.4 (H) 3.5 - 5.3 MEQ/L [facility] Specimen Performing Organization Address City/[facility] Ph one Number [address] [address] LABORATORIES * Lytes//HGB/CA POC (12/01/2019 10:51 AM CDT) Only the most recent of 3 results within the time period is included. [facility] Ionized Calcium 4.3 (L) 4.5 - 5.3 mg/dL [facility] Sodium 132 (L) 133 - 147 MEQ/L [facility] Potassium 6.6 (C) 3.5 - 5.3 MEQ/L [facility] Specimen Arterial Performing Organization Address City/[facility] Ph one Number [address] [address] LABORATORIES [facility] [address] [place] [address] * Arterial Blood Gas + Coox (12/01/2019 10:51 AM CDT) Only the most recent of 3 results within the time period is included. Hemoglobin 12.1 (L) 13.0 - 17.0 g/dL [facility] Whole Blood [facility] Oxyhemoglobin 95.8 95.0 - 100.0 % THB [facility] Carboxyhemoglob 3.4 (H) 0.0 - 1.5 % THB [facility] in [facility] Methemoglobin 0.5 0.0 - 1.5 % [facility] Lab Total Oxygen 99.7 95.0 - 100.0 % [facility] Lab O2 Content 16.7 (L) 17.0 - 100.0 mL/dL [facility] PO2 Arterial 177 (H) 80 - 100 mm Hg [facility] pCO2 Arterial 41 35 - 45 mm Hg [facility] pH Arterial 7.31 (L) 7.35 - 7.45 units [facility] Bicarbonate 20.6 19.0 - 29.0 MEQ/L [facility] Base Excess -5.4 (L) -3.0 - 3.0 MEQ/L [facility] Specimen Arterial Performing Organization Address City/State/Zipcode Ph one Number [facility] [address] [place] [address] LABORATORIES [facility] [address] [place] [address] * Tissue Pathology or Biopsy (12/01/2019 10:38 AM CDT) Specimen Tissue - Aortic Valve Narrative Performed At [facility] Pathology Group [facility] SURGICAL PATHOLOGY REPORT PATIENT: TRUPTI JUAREZ /AGE/SEX: 1985 (Age: 34) /M ID #: [id number] SUBMITTING PHYSICIAN: Traci Leiva MD CLIENT: [facility] COLLECTED: 12/01/2019 REPORTED: 12/02/2019 SPECIMEN #: [id number] ##################MICROSCOPIC INTERPRET ATION################## Cardiac aortic valve, excision with noris ve replacement: - Nodular calcification and degen erative change. Melva Benitez M.D. Report Electronically Signed Out CDW:12/02/19 ELISA([facility]) CLINICAL HISTORY/IMPRESSION: Aortic valve. SPECIMEN LABELED: Aortic valve GROSS DESCRIPTION: The specimen is received in neutral buf fered formalin, labeled with the patient name and further designated "aortic noris ve." The specimen consists of a 3.2 x 2.7 x 0.6 cm coughlin-white and rubbery piece of soft tissue. Sectioning reveals a red-yellow, calcified cut surface. Hides Inspector sections are submitted in cassette A1 after decalcification. (JOURDAN) mj Professional Component performed by ELISA , a [facility] Pathologist located at [facility], [address] [place] [address] Technical Component performed at [facility] [address] [place], [place] [address] If immunohistochemical stains and or in situ hybridization are cited in this report, the performance characteristics were determined by [facility] Pathology Group in compliance with CLIA'88 regulations. Some of these tests rely on the use of 'analyte specific reagents' and are subject to specific l abeling requirements by the FDA. Known positive and negative control tissues d emonstrate appropriate staining. Results should be interpreted with caution give n the likelihood of false negativity on decalcified specimens. This testing was developed b sweetie [facility] Pathology Group. It has not been cleared or approved by the FDA. The FDA has determined that such clearance or approval is not necessary. ###END OF REPORT### Performing Organization Address City/State/Zipcode Ph one Number [facility] [address] [facility] [place] [address] [address] * Activated Clotting Time POC (12/01/2019 10:33 AM CDT) Only the most recent of 3 results within the time period is included. Activated 543 (H) 99 - 130 sec [facility] Clotting Time [facility] Specimen Performing Organization Address City/[facility]/Zipcode Ph one Number [facility] [address] [place] [address] LABORATORIES * Retype Patient ABORH (12/01/2019 7:32 AM CDT) ABORH Type A Positive [facility] Confirm Blood Yes [facility] Specimen Blood Performing Organization Address City/State/Zipcode Ph one Number [facility] [address] [place], [place] [id number] LABORATORIES [facility] [address] [place] [address] * Hemoglobin A1C (12/01/2019 7:23 AM CDT) Pathologist [facility] Hemoglobin A1C 5.6 4.0 - 5.6 % [facility] Comment: Hospital Lab Non-diabetic 4.0 - 5.6 % Prediabetes 5.7 - 6.4 % Diabetes >= 6.5 % Specimen Blood Performing Organization Address City/State/Zipcode Ph one Number [facility] [address] [place] [address] LABORATORIES [facility] [address] [place] [address] * IR Outside images for PACS (12/01/2019 7:23 AM CDT) Specimen Performing Organization Address City/[facility] Ph one Number [place] * RBCs 2 Units (12/01/2019 7:10 AM CDT) Pathologist [facility] 01 - PRODUCT ID Red Blood Cells [employer] [facility] Copier How To 01 - UNIT [id number] [facility] 01 - CROSS Compatible [employer]world[employer]S [facility] 01 - STATUS Ready [facility] bCODE INFO [facility] LAB[facility] 01 - PRODUCT [id number] [employer] CODE [facility] 01 - BLOOD TYPE A Pos VHT [employer] [facility] 02 - PRODUCT ID Red Blood Cells [facility] [employer] (formerly [employer] [facility] 02 - UNIT [id number] [facility] 02 - CROSS Compatible [facility] [employer] (formerly [employer]) [facility] 02 - STATUS Ready [facility]ATORIES 02 - PRODUCT [id number] [facility] 02 - BLOOD TYPE A Pos [facility] Specimen Blood Performing Organization Address [facility] one Number [facility] [address] [place] [address] LABORATORIES * Antibody Screen (12/01/2019 7:10 AM CDT) Antibody Screen Negative Negative [facility] Specimen Blood Performing Organization Address City/[facility] Ph one Number [facility] [address] [place] [address] LABORATORIES [facility] [address] [place] [address] * ABORH Type (12/01/2019 7:10 AM CDT) ABORH Type A Positive [facility] Specimen Blood Performing Organization Address [facility] one Number [facility] [address] [place] [address] LABORATORIES [facility] [address] [place] [address] * XMATCH (12/01/2019 6:25 AM CDT) Specimen Blood Performing Organization Address [facility] one Number [facility] [address] [place], [place] [address] documented in this encounter Visit Diagnoses Diagnosis Encounter for consultation S/P mechanical AVR (aortic valve replac ement) Heart valve replaced by other means Acute post-operative pain Hypoxemia Leukocytosis, unspecified type Severe obesity (BMI >= 40) (HCC) Aortic stenosis Aortic valve disorders Hyperkalemia Hyperpotassemia Ascending aorta dilatation (HCC) Thoracic aneurysm without mention of ru pture Low cardiac stroke volume index Hyponatremia Hyposmolality and/or hyponatremia documented in this encounter Administered Medications Action Date Dose Rate Site Medication Order MAR Action 12/01/2019 7:25 AM CDT 1,000 mg acetaminophen (TYLENOL) tablet 1,000 mg Given 1,000 mg, Oral, Once, 12/01/19 at 0730, For 1 dose, Pre-op, Do not exceed 4 GM/DAY of acetaminophen. If 65 or older do not exceed 3 GM/DAY. If chroni c alcoholic do not exceed 2 GM/DAY., 12/03/2019 3:34 PM CDT 650 mg acetaminophen (TYLENOL) tablet 650 mg Given 650 mg, Oral, Every 6 hours, First dose on Sun12/01/19 at 2115, For 48 hours, D o not exceed 4 GM/DAY of acetaminophen. If 65 or older do not exceed 3 GM/DAY. If chronic alcoholic do not exceed 2 GM/DAY., 650 mg Given 12/03/2019 8:33 AM CDT 650 mg Given 12/03/2019 3:45 AM CDT acetaminophen (TYLENOL) tablet 650 mg 650 mg, Oral, Every 6 hours PRN, mild pain (pain score 1-3), Indications: pain, Starting Sun12/05/19 at 1602, Do not exceed 4 GM/DAY of acetaminophen. If 65 or older do not exceed 3 GM/DAY. If chronic alcoholic do not exceed 2 GM/DAY., 12/01/2019 1:01 PM CDT 500 mL albumin 5 % bottle 500 mL New Bag 500 mL, Intravenous, at 100 mL/hr, Once , Sun12/01/19 at 1315, For 1 dose albumin 5 % bottle Starting Sun12/01/19 at 1243, For 1 dose, Alma Mcwilliams: cabinet override, albuterol (ACCUNEB) 1.25 mg/3 mL (0.042 %) nebulizer solution 1.25 mg 1.25 mg, Nebulization, Every 6 hours PRN, wheezing, shortness of air, Indications: bronchospasm prevention, Starting Sun12/03/19 at 0751 12/07/2019 9:22 AM CDT 81 mg aspirin chewable tablet 81 mg Given 81 mg, Oral, Daily, First dose on Sun12/02/19 at 0900, Hold for platelets les s than 90. Start POD #1., 81 mg Given 12/06/2019 8:31 AM CDT 81 mg Given 12/05/2019 8:26 AM CDT 12/02/2019 12:31 AM CDT 1.5 g 100 mL/hr cefuroxime (ZINACEF) 1.5 g in sodium Bolus from chloride ADDV (NS) 50 mL IVPB Bag 1.5 g, Intravenous, at 100 mL/hr, Every 8 hours, Indications: PERIOPERATIVE, First dose on Sun12/01/19 at 1700, For 2 doses, PACU & Post-op, 1st post-op dose to be given 8 hours after the pre-op dose., 1.5 g 100 mL/hr New Bag 12/01/2019 4:59 PM CDT 12/07/2019 9:24 AM CDT 40 mg Right Lo wer Abdomen enoxaparin (LOVENOX) syringe 40 mg Given 40 mg, Subcutaneous, Every 12 hours scheduled, First dose (after last reorder) on Sun12/02/19 at 0900 40 mg Left Lower Abdomen Given 12/06/2019 9:35 PM CDT 40 mg Right Upper Abdomen Given 12/06/2019 8:32 AM CDT 12/01/2019 8:47 PM CDT 20 mg famotidine (PEPCID) injection 20 mg Given 20 mg, Intravenous, 2 times daily, Firs t dose on Sun12/01/19 at 2100 12/07/2019 9:22 AM CDT 20 mg famotidine (PEPCID) tablet 20 mg Given 20 mg, Oral, 2 times daily, First dose on Sun12/01/19 at 2100 20 mg Given 12/06/2019 9:35 PM CDT 20 mg Given 12/06/2019 8:31 AM CDT furosemide (LASIX) 10 mg/mL injection Starting Sun12/02/19 at 0740, For 1 dose, Priscilla High: cabinet override, 12/02/2019 7:43 AM CDT 20 mg furosemide (LASIX) injection 20 mg Given 20 mg, Intravenous, Once, Sun12/02/19 a t 0800, For 1 dose, Doses less than or equal to 160 mg: Maximum IV push rate 10-40 mg/min. Doses greater than 160 mg : Maximum IV push rate of 4 mg/min. If emergent, may administer at 10-40 mg/min., 12/03/2019 8:37 AM CDT 40 mg furosemide (LASIX) injection 40 mg Given 40 mg, Intravenous, Once, Indications: edema, Sun12/03/19 at 0815, For 1 dose, Doses less than or equal to 160 mg: Maximum IV push rate 10-40 mg/min. Dose s greater than 160 mg: Maximum IV push rate 4 mg/min. If emergent, may administer at 10-40 mg/min., 12/02/2019 8:07 PM CDT 100 mg gabapentin (NEURONTIN) capsule 100 mg Given 100 mg, Oral, 3 times daily, First dose on Sun12/02/19 at 0300 100 mg Given 12/02/2019 4:26 PM CDT 100 mg Given 12/02/2019 9:19 AM CDT 12/02/2019 10:27 PM CDT 200 mg gabapentin (NEURONTIN) capsule 200 mg Given 200 mg, Oral, Once, Sun12/02/19 at 2245 , For 1 dose 12/01/2019 7:25 AM CDT 300 mg gabapentin (NEURONTIN) capsule 300 mg Given 300 mg, Oral, Once, Sun12/01/19 at 0730 , For 1 dose, Pre-op 12/07/2019 9:22 AM CDT 300 mg gabapentin (NEURONTIN) capsule 300 mg Given 300 mg, Oral, 3 times daily, First dose (after last modification) on Sun12/03/19 at 0900 300 mg Given 12/06/2019 9:35 PM CDT 300 mg Given 12/06/2019 5:00 PM CDT 12/01/2019 7:21 AM CDT 0.2 mg Left Arm glycopyrrolate (ROBINUL) injection 0.2 Given mg 0.2 mg, Intravenous, Once, Sun12/01/19 at 0730, For 1 dose, Pre-op, Give in CV Pre-op, 12/02/2019 8:01 AM CDT 10 mg hydrALAZINE (APRESOLINE) injection 10-20 Given mg 10-20 mg, Intravenous, Every 4 hours PRN, high blood pressure, SBP >140, Starting Sun12/01/19 at 1221 10 mg Given 12/02/2019 2:03 AM CDT 10 mg Given 12/01/2019 7:47 PM CDT 12/01/2019 5:08 PM CDT 2 tablets HYDROcodone-acetaminophen (NORCO) 5-325 Given mg per tablet 1-2 tablet 1-2 tablet, Oral, Every 4 hours PRN, moderate pain (pain score 4-6), or if patients declines higher pain score therapy, Starting Sun12/01/19 at 1227, Do not exceed 4 GM/DAY of acetaminophen . If 65 or older do not exceed 3 GM/DAY. If chronic alcoholic do not exceed 2 GM/DAY., 12/01/2019 7:48 PM CDT 0.5 mg HYDROmorphone (DILAUDID) injection Given 0.25-0.5 mg 0.25-0.5 mg, Intravenous, Every 30 min PRN, severe pain (pain score 7-10), elevated BP, breakthrough pain, or if patient unable to tolerate oral pain medications, Starting Sun12/01/19 at 1228, For 12 hours, Administer at a max rate of 1 mg/min; max dose for IVP is 4 mg. Note: Limit does not apply to patients who may be tolerant to opioid therapy or on continuous IV or PO opiat e therapy., 0.5 mg Given 12/01/2019 6:12 PM CDT 0.5 mg Given 12/01/2019 5:22 PM CDT 12/03/2019 10:11 PM CDT 0.5 mg HYDROmorphone (DILAUDID) injection Given 0.25-0.5 mg 0.25-0.5 mg, Intravenous, Every 3 hours PRN, severe pain (pain score 7-10), breakthrough pain, or if patient unable to tolerate oral pain medications, Starting Sun12/02/19 at 0028, Administe r at a max rate of 1 mg/min; max dose for IVP is 4 mg. Note: Limit does not apply to patients who may be tolerant to opioid therapy or on continuous IV or P O opiate therapy., 0.5 mg Given 12/02/2019 9:51 PM CDT 0.5 mg Given 12/02/2019 5:31 PM CDT 12/02/2019 2:40 AM CDT 0.5 mg HYDROmorphone (DILAUDID) injection 0.5 Given mg 0.5 mg, Intravenous, Once, Sun12/02/19 at 0300, For 1 dose, Administer at a ma x rate of 1 mg/min; max dose for IVP is 4 mg. Note: Limit does not apply to patients who may be tolerant to opioid therapy or on continuous IV or PO opiat e therapy., 12/02/2019 8:35 AM CDT 5 Units Left Arm insulin lispro (HumaLOG) injection 5-24 Given Units 5-24 Units, Subcutaneous, As needed, high blood sugar, Starting Sun12/01/19 at 1228, Administer per Cardiothoracic Surgery Post Op Glycemic Control Medica l Protocol (SYS-PRT-525). Glucose Level (mg/dL) Dose 151-200 5 units 201-250 10 units 251-300 16 units >300 24 units, 12/01/2019 8:02 PM CDT 3 Units/hr 3 mL/hr insulin regular (HumuLIN R) 100 Units in Rate/Dose sodium chloride 0.9 % (NS) 100 mL Change infusion 1-50 Units/hr (1-50 mL/hr), Intravenous , at 1-50 mL/hr, Continuous, Starting Sun12/01/19 at 1245, Administer per Cardiothoracic Surgery Post Op Glycemic Control Medical Protocol (SYS-PRT-525). REFRIGERATE, 2 Units/hr 2 mL/hr New Bag 12/01/2019 1:11 PM CDT 12/02/2019 1:42 PM CDT 30 mg ketorolac (TORADOL) injection 30 mg Given 30 mg, Intravenous, Every 6 hours scheduled, First dose (after last modification) on Sun12/02/19 at 0815, For 2 doses 30 mg Given 12/02/2019 8:25 AM CDT 12/04/2019 8:35 PM CDT 30 mg ketorolac (TORADOL) injection 30 mg Given 30 mg, Intravenous, Every 6 hours PRN, severe pain (pain score 7-10), Starting Sun12/02/19 at 2231, For 2 days 30 mg Given 12/04/2019 6:15 AM CDT 30 mg Given 12/03/2019 5:42 AM CDT 12/06/2019 11:23 PM CDT 30 mg ketorolac (TORADOL) injection 30 mg Given 30 mg, Intravenous, Every 6 hours PRN, severe pain (pain score 7-10), Starting Sun12/05/19 at 0853, For 2 days 30 mg Given 12/06/2019 1:38 PM CDT 30 mg Given 12/05/2019 9:21 AM CDT 12/07/2019 9:22 AM CDT 2 capsules lactobacillus (CULTURELLE) 10 billion Given cell capsule 2 capsule, Oral, Daily, First dose on Sun12/05/19 at 1145 2 capsules Given 12/06/2019 8:31 AM CDT 2 capsules Given 12/05/2019 11:35 AM CDT 12/07/2019 9:24 AM CDT 1 patch Chest Lidocaine (LIDODERM) 5 % 1 patch Patch 1 patch, Transdermal, Administer over 12 Applied Hours, Daily, First dose on Sun12/02/19 at 0900, Apply to chest, please do not apply directly to chest incision, 1 patch Chest Patch Applied 12/06/2019 8:32 AM CDT 1 patch Chest Patch Applied 12/05/2019 8:26 AM CDT magnesium sulfate in water 4 gram/100 m L (4 %) IVPB Starting 12/01/19 at 0744, For 1 dose, Braden Turner M: cabinet override, 12/01/2019 1:15 PM CDT 4 g 25 mL/hr magnesium sulfate IVPB 4 gram (premix) New Bag 4 g, Intravenous, at 25 mL/hr, Once, n 12/01/19 at 1245, For 1 dose, To start o n arrival at [facility]. Run over 4 hours., 12/02/2019 3:10 AM CDT 4 g 25 mL/hr magnesium sulfate IVPB 4 gram (premix) New Bag 4 g, Intravenous, at 25 mL/hr, Once, 12/02/19 at 0400, For 1 dose, Repeat POD #1 At 0400., 12/04/2019 6:53 PM CDT 2.5 mg metoprolol (LOPRESSOR) injection 2.5 mg Given 2.5 mg, Intravenous, Once, Indications: HR >120, Anisha 12/04/19 at 1845, For 1 dose 12/03/2019 3:35 PM CDT 5 mg metoprolol (LOPRESSOR) injection 5 mg Given 5 mg, Intravenous, Once, 12/03/19 at 1530, For 1 dose 12/03/2019 8:33 AM CDT 12.5 mg metoprolol (LOPRESSOR) split tablet 12.5 Given mg 12.5 mg, Oral, 2 times daily, First dos e on Sun12/02/19 at 0900, To start POD #1 . Hold for SBP < 100 and or HR < 60, 12.5 mg Given 12/02/2019 8:07 PM CDT 12.5 mg Given 12/02/2019 8:35 AM CDT 12/05/2019 9:48 PM CDT 100 mg metoprolol succinate (TOPROL-XL) 24 hr Given tablet 100 mg 100 mg, Oral, 2 times daily, First dose on Anisha 12/04/19 at 1800, DO NOT CRUSH OR CHEW., 100 mg Given 12/05/2019 8:26 AM CDT 100 mg Given 12/04/2019 5:39 PM CDT 12/06/2019 9:35 PM CDT 200 mg metoprolol succinate (TOPROL-XL) 24 hr Given tablet 200 mg 200 mg, Oral, Nightly, First dose (afte r last modification) on Sun12/06/19 at 2100, DO NOT CRUSH OR CHEW., 12/03/2019 8:12 PM CDT 25 mg metoprolol tartrate (LOPRESSOR) tablet Given 25 mg 25 mg, Oral, 2 times daily, First dose (after last modification) on Sun12/03/19 at 2100, To start POD #1. Hold for SBP < 100 and or HR < 60, 12/04/2019 6:15 AM CDT 50 mg metoprolol tartrate (LOPRESSOR) tablet Given 50 mg 50 mg, Oral, 2 times daily, First dose (after last modification) on Anisha 12/04/19 at 0630, To start POD #1. Hold for SBP < 100 and or HR < 60, 12/01/2019 7:21 AM CDT 2 mg midazolam (PF) (VERSED) injection 2 mg Given 2 mg, Intravenous, Once, 12/01/19 at 0730, For 1 dose, Pre-op, Give in CV Pre-op, 12/06/2019 9:35 PM CDT 4 mg ondansetron (ZOFRAN) injection 4 mg Given 4 mg, Intravenous, Every 6 hours PRN, nausea, Starting 12/01/19 at 1227 4 mg Given 12/06/2019 8:32 AM CDT 4 mg Given 12/06/2019 3:06 AM CDT 12/07/2019 2:24 PM CDT 10 mg oxyCODONE (ROXICODONE) immediate release Given tablet 5-10 mg 5-10 mg, Oral, Every 4 hours PRN, moderate pain (pain score 4-6), Startin g 12/01/19 at 9 10 mg Given 12/07/2019 9:35 AM CDT 10 mg Given 12/07/2019 5:43 AM CDT 12/06/2019 4:59 PM CDT 17 g polyethylene glycol (GLYCOLAX) packet 17 Given g 17 g, Oral, Daily, First dose on Sun12/02/19 at 0900, Administer daily until first BM, then PRN for prevention of constipation. Mixed in 4-8 ounces liquid., 17 g Given 12/03/2019 8:34 AM CDT 17 g Given 12/02/2019 8:36 AM CDT potassium bicarb-citric acid (EFFER-K) effervescent tablet 20 mEq 20 mEq, Oral, As needed, potassium replacement, Starting 12/01/19 at 1227, Administer if unable to swallow potassium tablets. If urine output is less than 30 mL/hr, check with physicia n prior to K+ replacement. Potassium les s than 3.5 mg/dL: Administer 20 mEq once and notify physician. Repeat potassium level in AM. Potassium 3.5 - 3.6 mg/dL: Administer 20 mEq every 4 hours x 2 doses (total dose = 40 mEq). Repeat potassium level in AM. Potassium 3.7 - 4 mg/dL: Administer 20 mEq once . Repeat potassium level in AM. Completel y dissolve tablet in 3 to 4 ounces (90-12 0 mL) of cold juice or water before administering. For fluid restricted patients, a smaller volume may be used to dilute (e.g. 15-30 mL)., 12/07/2019 9:22 AM CDT 20 mEq potassium chloride (KLOR-CON) CR tablet Given 20 mEq 20 mEq, Oral, As needed, potassium replacement, Starting 12/01/19 at 1227, If urine output is less than 30 mL/hr, check with physician prior to K+ replacement. Potassium less than 3.5 mg/dL: Administer 20 mEq once and notif y physician. Repeat potassium level in AM . Potassium 3.5 - 3.6 mg/dL: Administer 20 mEq every 4 hours x 2 doses (total dose = 40 mEq). Repeat potassium level in AM. Potassium 3.7 - 4 mg/dL: Administer 20 mEq once . Repeat potassium level in AM. DO NOT CRUSH OR CHEW., 20 mEq Given 12/04/2019 8:35 PM CDT 12/02/2019 7:47 AM CDT 20 mEq 50 mL/hr potassium chloride 20 mEq in 100 mL IVPB New Bag 20 mEq, Intravenous, Administer over 2 Hours, As needed, potassium replacement , Starting 12/01/19 at 1227, Administe r if unable to take oral potassium. If urine output is less than 30 mL/hr, check with physician prior to K+ replacement. Potassium less than 3.7 mg/dL: Administer 20 mEq x 2 doses (total dose = 40 mEq). Repeat potassium level 2 hours after last infusion complete. Potassium 3.7 - 4.3 mg/dL: Administer 20 mEq once. Repeat potassium level in AM. Potassium chloride should be infused at a rate of 10 mEq/hr through a peripheral line, or at a rate of 20 mEq/hr through a centra l line., 12/01/2019 12:51 PM CDT 5 mcg/kg/min 4.22 mL/hr propofol (DIPRIVAN) infusion 10 mg/mL Rate/Dose 5-80 mcg/kg/min Change 140.7 kg (4.221-67.536 mL/hr, rounded t o 4.22-67.54 mL/hr), Intravenous, at 4.22-67.54 mL/hr, Continuous, Starting Sun12/01/19 at 1245, Begin infusion at 5 mcg/kg/min and titrate by greater of 5 mcg/kg/min or 25% increments every 5 minutes to maintain RASS 0 to -1 (standard). Do not bolus or make sudden large increases in rate. Infusion not t o exceed 80 mcg/kg/min. Do not administer through the same IV catheter with blood or plasma. Tubing and any unused portions of propofol vials should be discarded after 12 hours., 10 mcg/kg/min 8.44 mL/hr Rate/Dose Change 12/01/2019 12:51 PM CDT 20 mcg/kg/min 16.87 mL/hr Rate/Dose Change 12/01/2019 12:49 PM CDT 12/06/2019 9:35 PM CDT 2 tablets senna-docusate (PERICOLACE) 8.6-50 mg 2 Given tablet 2 tablet, Oral, 2 times daily, First dose on Sun12/02/19 at 0900, Start POD #1. May hold PRN for loose stools., 2 tablets Given 12/06/2019 8:31 AM CDT 2 tablets Given 12/03/2019 8:11 PM CDT 12/04/2019 10:16 AM CDT 80 mg simethicone (MYLICON) chewable tablet 80 Given mg 80 mg, Oral, 3 times daily PRN, flatulence, Starting Anisha 12/04/19 at 0918 sodium chloride (HALF-SALINE) 0.45 % infusion Starting 12/01/19 at 0744, For 1 dose, Braden Turner M: cabinet override, 12/01/2019 1:02 PM CDT 25 mL/hr 25 mL/hr sodium chloride 0.45% infusion New Bag 25 mL/hr, Intravenous, Continuous, Starting 12/01/19 at 1245, For 48 hours, Discontinue maintenance fluids when patient taking PO., 12/01/2019 12:45 PM CDT 1,000 mg 13.75 mL/hr tranexamic acid 1,000 mg in sodium New Bag chloride 0.9 % (NS) 110 mL IVPB 1,000 mg, Intravenous, Administer over 8 Hours, Once, 12/01/19 at 1245, For 1 dose, Complete the infusion started intra-operatively @ 125mg/hr until bag is infused. REFRIGERATE, 12/06/2019 5:00 PM CDT 10 mg warfarin (COUMADIN) tablet 10 mg Given 10 mg, Oral, Every evening, First dose (after last modification) on Sun12/05/19 at 1800, To start POD #1., 10 mg Given 12/05/2019 5:16 PM CDT 12/02/2019 6:26 PM CDT 3 mg warfarin (COUMADIN) tablet 3 mg Given 3 mg, Oral, Every evening, First dose o n 12/02/19 at 1800, To start POD #1., 12/04/2019 5:39 PM CDT 7.5 mg warfarin (COUMADIN) tablet 7.5 mg Given 7.5 mg, Oral, Every evening, First dose (after last modification) on Sun12/03/19 at 1800, To start POD #1., 7.5 mg Given 12/03/2019 5:46 PM CDT documented in this encounter
--- OUTSIDE RECORDS SUMMARY | 2019-12-17 23:21 | XMS REPORT | Encounter Summary ---
Author Author [facility] Organization [facility] Address Unknown Phone Unavailable Care Team Providers Care Professor Of Psychology Name Role Phone AmadouNichol PCP Encounter Details Care Team Description Date Type Department Scanning, Interface 12/17/2019 Documentation [facility] [address] [place] [address] Social History Date Tobacco Use Types Packs/Day [...]
--- OUTSIDE RECORDS SUMMARY | 2019-12-17 23:22 | XMS REPORT | Encounter Summary ---
Author Author [facility] Organization [facility] Address Unknown Phone Unavailable Care Team Providers Care Rope Walker Name Role Phone Reji Jacob PCP Encounter Details Care Team Description Date Type Department Encounter for consultation 11/28/[address] [facility] Virtual [...] Diag nosis US OUTSIDE IMAGES FOR Routine 11/28/2019 Encounte r for PACS 2:00 PM CDT consultation documented in this encounter Results * US Outside images for PACS (11/28/2019 2:00 PM CDT) Specimen Performing Organization Address City/State/Zipcode Ph one Number [place] documented in this encounter Visit Diagnoses Diagnosis Encounter for consultation documented in this encounter
--- OUTSIDE RECORDS SUMMARY | 2019-12-17 23:22 | XMS REPORT | Encounter Summary ---
Author Author [facility] Organization [facility] Address Unknown Phone Unavailable Care Team Providers Care Residential Assistant Name Role Phone Reji Jacob PCP Encounter Details Care Team Description Date Type Department Encounter for consultation 11/28/2019 Imaging [facility] Virtual Revenu e [...] r for PACS 2:02 PM CDT consultation documented in this encounter Results * US Outside images for PACS (11/28/2019 2:02 PM CDT) Specimen Performing Organization Address City/State/Zipcode Ph one Number [place] documented in this encounter Visit Diagnoses Diagnosis Encounter for consultation documented in this encounter
--- OUTSIDE RECORDS SUMMARY | 2019-12-17 23:22 | XMS REPORT | Encounter Summary ---
Author Author [facility] Organization [facility] Address Unknown Phone Unavailable Care Team Providers Care Mailroom Associate Name Role Phone Reji Jacob PCP Reason for Visit * Auth/Cert Referred By Contact Referred To Contact Status Reason Specialty Diagnoses / Procedures Diagnoses AORTIC STENOSIS P rocedures TX RPLCMT PROST AORTIC VALVE OPEN XCP HOMOGRF/STENT AORTIC VALVE REPLACEMENT (MECHANICAL) ECHOCARDIOGRAM, TRANSESOPHAGEAL POSSIBLE REPLACEMENT OF ASCENDING AORTA Encounter Details Care Team Description Date Type Department Rusty Ventura MD [address] [facility] [place] [address] [phone] Jm Dorman DO [address] [facility] [place] [address] [phone] 12/01/2019 [facility] [address] [place] [address] Anesthesia Record Responsible Anesthesiologist Anesthesia Start Time Anesthesi a Stop Time Procedure Name Rusty Ventura MD 12/01/19 0802 12/01/19 1222 AORTIC VALVE REPLACEMENT WITH 25MM [facility] (N/A ) Date Time Event Comment 650 Anesthesia 2020 Initial Contact 0700 0706 AN Equip Check 0802 In room 0802 An Start 0802 HYDRATION PLANT OPERATOR/AA JOSÉ ANTONIO Ron Intraprocedure Sign-Off 0802 Pt eval immediately prior to anesthesia 0802 An Start Data 0804 Quick Note PPE Statement: JOSÉ ANTONIO Wood used Red Plus precautions (PAPR, gown, and gloves) during the patient en counter. 0806 Preoxygenated Prior to Induction 0813 Anesthesia Verified correct pa tient, procedure, allergies and equipment checks. Other PreInduction patient/case specific issue s addressed as needed (IV access and airway Time Out considerations, additional procedures, anesthesia options, cardiac devices, Complete positioning, transfusions/E BL and post operative disposition) 0814 An Induction 0817 An Intubation 0817 Atraumatic intubation/LMA 0817 ETCO2 wavefrom present 0817 Bilat/= breath sounds 0823 AN ISABELLA Placed by Dr Ventura 0839 Anesthesia Ready 0909 Procedure start - Primary Case 0916 Sternotomy 0934 An Aortic Cannula 0938 An Venous Cannula 0947 An CV Bypass init 0952 An Clamp On 1034 AN Active Warm 1048 An Clamp Off 1105 An CV Bypass Ended 1158 Procedure stop - Primary case 1204 FiO2 to 100% Prior to Suctioning 1204 an stop data 1208 Out of Room 1222 Handoff I completed my SBAR handoff to the receiving nurse in the PACU/ICU/OB Patient and PACU/ICU/OB nurse identifie d Discussed patient medical history Discussed procedure Reviewed intraopera tive anesthetic management and issues/concerns Discussed expectation f or early post-procedure period Questions from PACU/ICU/OB team address ed 1222 An Stop Meds Name Total glycopyrrolate 0.2mg/mL 0.8 mcg fentaNYL (SUBLIMAZE) injection 50 mcg/mL 500 mcg propofol 10mg/mL 200 mg succinylcholine (ANECTINE) 20 mg/mL 200 mg injection phenylepherine 0.1mg/mL 100 mcg norepinephrine (LEVOPHED) 4 mg in sodium 0.33 mg chloride 0.9 % (NS) 250 mL infusion heparin 1,000unit/mL 10mL 55,000 Units protamine 250 mg tranexamic acid injection 1,000 mg tranexamic acid 1,000 mg in sodium 345.83 mg chloride 0.9 % (NS) 110 mL IVPB cefuroxime (ZINACEF) injection 1.5 g 1,500 mg lidocaine 2% (PF) 100 mg pancuronium (PAVULON) injection 1 mg/mL 10 mg neostigmine (BLOXIVERZ) injection 0.5 5 mg mg/mL sodium chloride 0.9% 750 mL sodium chloride 0.9% 400 mL * Name Cell Saver Blood Intake O2 N2O Air EtSEVO EtISO EtDES EtN2O * No blood administrations on file. Removal Type Details Placement Wound 12/01/19; 09; Incision; Chest 0953 by Melva Nair RN 12/07/19 1300 by Dinora Ledezma RN Peripheral Date: 12/01/19; Time: 07; Size 11/30 0707 by Rsuty Do IV (gauge): 18 G; Orientation: Left; Florina pitt MD Location: Arm; Site Prep: Alcohol swab; Local Anesthetic: Intradermal; Insertio n Attempts: 1; Inserted By: SANDRO Wharton; Removal Date: 12/07/19; Removal Time: 1300 12/02/19 0815 by Priscilla Hgih RN Arterial Date: 12/01/19; Time: 709 (created via 12/01/19 07 by Rusty Do Line procedure documentation); Location: Quincy tapia MD Radial; Site Prep: Other (Comment); Securement Method: Other (comment); Removal Date: 12/02/19; Removal Time: 0812/01/19 1300 by Alma Mcwilliams RN Non-Surgic Date: 12/01/19; Time: 08; Able to mas k 12/01/19 08 by Ryanne dick Airway ventilate prior to placement: N/A; JOSÉ ANTONIO Land Placed By: Anesthesiologist; Site: Oral ; Device: ETT - Cuffed; Size: 7.5; Units: Millimeters; Method: Video Laryngoscope , Other (comment) (Rigid Stylet); Blade Type: MAC; Blade Size: 4; Attempts: 1 (Grade I view with DL); Grade View: I; Airway Observations: oropharynx clear, cords visualized; Placement Verified By : Auscultation, Capnometry; Secured At (cm): 22; Measured From: Lips; Removal Date: 12/01/19; Removal Time: 1300 12/02/19 1347 by Priscilla High RN Urethral 12/01/19; 0844; Double-lumen, Latex, 0 12/01/19 0844 by Melva Catheter Straight-tip, Temperature probe; 16 Fr. ; RODNEY Nair Per order 12/02/19 0940 by Priscilla High RN Y Chest 12/01/19; 1111; 1; Anterior; 12/01/19 1111 by Melva Tube 1 and Mediastinal; 24 Fr. (GRICEL); 2; RODNEY Nair 2 Anterior; Mediastinal; 24 F r. (GRICEL); Per order 12/02/19 0940 by Priscilla High RN Closed/Suc 12/01/19; 1132; Other (Comment) 1132 by Melva tion Drain (ATRIUM); Per order RODNEY Nair 12/02/19 1028 by Priscilla High RN Introducer 12/01/19; 1156 (created via procedure 12/01/19 1156 by Rusty Do documentation); 12/02/19; 1028; Per MD Audrey order documented in this encounter Social History Date Tobacco Use Types Packs/Day [...] history available. documented as of this encounter Procedure Notes * Rusty Ventura MD - 12/01/2019 5:29 PM CDT Associated Order(s): ISABELLA ISABELLA 26217- Probe placement, image acquistion & report, 11455- Doppler, pulse wave and/or continuous with spectral display and 35434- Doppler color flow velocity mappingPerforming Physician: Audrey Preanesthetic checklist: patient identified, risks and benefits discussed, pre-o p evaluation, monitors and equipment checked and anesthesia consent Timeout: correct patient and correct procedure Timeout Performed: 07:45 Diagnosis: Wall motion: abnormal (Septal hypkinesis) Normal left ventricular systolic function. Estimated ejection fraction 60%, Normal wall thickness. Ascending aorta: normal Descending aorta: normal Normal left ventricular dimensions. Normal right ventricular size and systolic function. Normal right and left atrial size. Aortic valve: abnormal, with regurgitation and with stenosis (Bicusp AV), modera te and eccentric, severe Mitral valve: normal Pulmonic valve: normal Tricuspid valve: normal no Interarterial septum: normal no no Left atrial appendage: No Mass seen. Normal emptying velocity ISABELLA probe removed easily and atraumatically: yesNotes: Post CPB: Normal functio tamia mechanical aortic prosthesis. Trace AI. No MR or TR. LV and RV function p reserved. No evidence of Ao dissection. Remainder of exam without change. * Ryanne Wharton AA-C - 12/01/2019 11:54 AM CDT Associated Order(s): PA Catheter PA Catheter Patient location during procedure: OR Start time: 12/01/2019 8:25 AM End time: 12/01/2019 8:39 AM Staffing MD Audrey Performed by: anesthesiologist Preanesthetic Checklist Preanesthetic Checklist: patient identified, risks and benefits discussed, pre- op evaluation, monitors and equipment checked and anesthesia consent Timeout: correct patient, correct site, correct position, correct procedure and correct laterality Timeout Performed: 08:20 Line Placement Diagnosis: Referring Physician: Guillermo Pulmonary artery catheter, new line and elective procedure performed post-induct ion Right internal jugular insertion site pa cath existing sheaththrough sheath placed immediately prior with patient in Trendelenburg position. Inserted with all elements of maximum sterile barrier technique; ChloraPrep, full barrier brittany pe, hat, gown, mask and hygiene prior to donning sterile gloves. Ultrasound marta ded, 9 Fr catheter placed, with length of 10 cm. Sterile dressing used, secured with suture. Verification method: ISABELLA. Placemen t verified by MD Audrey. Patient tolerated procedure well. * Rusty Ventura MD - 12/01/2019 11:09 AM CDT Associated Order(s): Art Line Art Line Patient location during procedure: pre-op Start time: 12/01/2019 7:10 AM End time: 12/01/2019 7:12 AM Staffing MD Audrey and SANDRO Wharton Performed by: AA Preanesthetic Checklist Preanesthetic Checklist: patient identified, risks and benefits discussed, brandan tors and equipment checked, anesthesia consent and pre-op evaluation Timeout: correct patient, correct site, correct position, correct procedure and correct laterality Timeout Performed: 07:10 Line Placement Diagnosis: Bicuspid Aortic Valve with Referring Physician: MD Guillermo Patient Position: supine Sterile Prep: alcohol Insertion Site: left radial Local skin infiltration: 1% lidocaine administered. copy of ultrasound film not in chart. Catheter size: 20 gauge, 1.75 in secured with other (comment). Complications: none Arterial waveform: Yes IBP within 10% of NIBP: Yes documented in this encounter Miscellaneous Notes * Anesthesia Postprocedure Evaluation - Rusty Ventura MD - 12/02/2019 12:24 PM CDT Anesthesia Post Evaluation Procedure(s):AORTIC VALVE REPLACEMENT WITH 25MM [facility]'S MECHANICALECHOCARDIOG REYES, TRANSESOPHAGEAL Surgeon: Reuben Li MD Patient Evaluated in: ICU Patient Participation: complete - patient participated Level of Consciousness: awake and alert Pain Score: 4, with adequate pain management. Airway Patency: patent Respiratory Status: spontaneous ventilation, room air and nonlabored ventilation Cardiovascular Status: hemodynamically stable Postoperative Hydration: euvolemic Postop Nausea/Vomiting: no PONV in PACU Multimodal analgesia used for 6 hours prior to anesthesia start time through PAC U discharge. Anesthetic Complications: No Appropriate for discharge from anesthesia care, no apparent anesthesia related c omplication ANE Post Eval Vitals Most Recent Value BP 94/61 filed at 12/02/2019 1200 Pulse (!) 103 filed at 12/02/2019 1200 Temp 37.7 C (99.9 F) filed at 12/02/2019 1200 Resp 18 filed at 12/02/2019 1200 SpO2 92 % filed at 12/02/2019 1200 * Anesthesia Preprocedure Evaluation - Rusty Ventura MD - 12/01/2019 6:52 AM CDT Anesthesia Evaluation Patient summary reviewed No history of anesthetic complications History of smoking and substance abuse (Marijuana). No history of alcohol use. Current everyday smoker. Airway Mallampati: II TM distance: >3 FB Neck ROM: full Adequate mouth opening Prominent facial hair Dental - normal exam Pulmonary Lung sounds: normal, Cardiovascular Rhythm: regular (+) valvular problems/murmurs , , dysrhythmias (VT), Comment: Severe Dilated Asc Ao Neuro/Psych GI/Hepatic/Renal Endo/Other Abdominal (+) morbid obesity Obstetrics HEENT Musculoskeletal Hematology/Oncology Anesthesia Plan ASA 4 Type: general () Plan to include: IV induction, oral ETT and art line, PA catheter and ISABELLA Plan discussed with anesthesiologist pathologist assistant. Anesthetic plan and risks discussed with patient. Use of blood products discussed with patient whom. Recovery plan: ICU PONV Risk: low Notes Risks GETA, ISABELLA, invasive lines, post-op ICU and vent, possible transfusion, rar e dental injury, ACT approach discussed with patient. All questions answered. He understands, accepts risks, and wishes to proceed. Donald Ventura documented in this encounter Plan of Treatment Not on filedocumented as of this encounter Procedures Comments Procedure Name Priority Date/Time Associated Diag nosis ANESTHESIA ISABELLA Routine 12/01/2019 5:29 PM CDT ANESTHESIA PA CATH Routine 12/01/2019 11:54 AM CDT ANESTHESIA ARTERIAL LINE Routine 12/01/2019 11:09 AM CDT documented in this encounter Results * ANESTHESIA ISABELLA (12/01/2019 5:29 PM CDT) Narrative Performed At Rusty Ventura MD 12/01/2019 5:3 3 PM ISABELLA 19849- Probe placement, image acquistio n & report, 31213- Doppler, pulse wave and/or continuous with spectral di splay and 04270- Doppler color flow velocity mappingPerforming Physician: Michael [...] dissection. Remainder of exam without change. * ANESTHESIA PA CATH (12/01/2019 11:54 AM [...] Performed: 08:20 Line Placement Diagnosis: Referring Physician: Li Pulmonary artery catheter, new line and elective [...] Yes IBP within 10% of NIBP: Yes documented in this encounter Visit Diagnoses Not on filedocumented in this encounter Administered Medications Action Date Dose Rate Site Medication Order MAR Action 12/01/2019 8:58 AM CDT 1,500 mg cefuroxime (ZINACEF) injection Given Intravenous, As needed, Starting [facility] 12/01/19 at 0858, Anesthesia Intra-op 12/01/2019 9:30 AM CDT 250 mcg fentaNYL (SUBLIMAZE) injection Given As needed, Starting [facility] 12/01/19 at 0809 , Anesthesia Intra-op 100 mcg Given 12/01/2019 9:12 AM CDT 150 mcg Given 12/01/2019 8:09 AM CDT 12/01/2019 12:16 PM CDT 0.8 mcg glycopyrrolate (ROBINUL) injection Given As needed, Starting Sun12/01/19 at 1216 , Anesthesia Intra-op 12/01/2019 9:21 AM CDT 55,000 Units heparin (porcine) 1,000 unit/mL Given injection As needed, Starting Sun12/01/19 at 0921 , Anesthesia Intra-op 12/01/2019 8:08 AM CDT 100 mg lidocaine (pf) (XYLOCAINE-MPF) 20 mg/mL Given (2 %) injection As needed, Starting [facility] 12/01/19 at 0808 , Anesthesia Intra-op 12/01/2019 12:16 PM CDT 5 mg neostigmine (BLOXIVERZ) injection Given As needed, Starting Sun12/01/19 at 1216 , Anesthesia Intra-op 12/01/2019 11:36 AM CDT 0.03 mcg/kg/min 15.83 mL/hr norepinephrine (LEVOPHED) 4 mg in sodium Rate/Dose chloride 0.9 % (NS) 250 mL infusion Change Continuous PRN, Starting Sun12/01/19 at 1051, Anesthesia Intra-op 0.05 mcg/kg/min 26.38 mL/hr Rate/Dose Change 12/01/2019 11:28 AM CDT 0.03 mcg/kg/min 15.83 mL/hr Restarted 12/01/2019 11:15 AM CDT 12/01/2019 8:18 AM CDT 10 mg pancuronium (PAVULON) injection Given As needed, Starting 12/01/19 at 0818 , Anesthesia Intra-op 12/01/2019 11:26 AM CDT 100 mcg phenylephrine HCl in 0.9% NaCl Given (NEOSYNEPHRINE) 1 mg/10 mL (100 mcg/mL) injection As needed, Starting 12/01/19 at 1126 , Anesthesia Intra-op 12/01/2019 9:32 AM CDT 50 mg propofoL (DIPRIVAN) injection Given As needed, Starting Sun12/01/19 at 0932 , Anesthesia Intra-op 150 mg Given 12/01/2019 8:14 AM CDT 12/01/2019 11:08 AM CDT 250 mg protamine (AMATINE) injection Given Intravenous, As needed, Starting 12/01/19 at 1108, Anesthesia Intra-op 12/01/2019 8:53 AM CDT sodium chloride 0.9% infusion New Bag Continuous PRN, Starting Sun12/01/19 at 0802, Anesthesia Intra-op New Bag 12/01/2019 8:02 AM CDT 12/01/2019 8:39 AM CDT sodium chloride 0.9% infusion New Bag Continuous PRN, Starting Sun12/01/19 at 0839, Anesthesia Intra-op 12/01/2019 8:14 AM CDT 200 mg succinylcholine (ANECTINE) injection Given As needed, Starting Sun12/01/19 at 0814 , Anesthesia Intra-op 12/01/2019 9:31 AM CDT 125 mg/hr 13.75 mL/hr tranexamic acid 1,000 mg in sodium New Bag chloride 0.9 % (NS) 110 mL IVPB Intravenous, Administer over 8 Hours, Continuous PRN, Starting 12/01/19 at 0931, Anesthesia Intra-op 12/01/2019 9:31 AM CDT 1,000 mg tranexamic acid injection Given Intravenous, As needed, Starting Sun12/01/19 at 0931, Anesthesia Intra-op documented in this encounter
--- OUTSIDE RECORDS SUMMARY | 2019-12-17 23:22 | XMS REPORT | Encounter Summary ---
Author Author [facility] Organization [facility] Address Unknown Phone Unavailable Care Team Providers Care Behavioral Health Rn Name Role Phone Reji Jacob PCP Encounter Details Care Team Description Date Type Department Encounter for consultation 11/28/2019 Imaging [facility] Virtual Rev[facility] e Appointment Location Social History [...] Name Priority Date/Time Associated Diag nosis CT CHEST OUTSIDE IMAGES Routine 11/28/[address] for FOR PACS 2:00 PM CDT consultation documented in this encounter Results * CT Outside images for PACS Chest (11/28/2019 2:00 PM CDT) Specimen Performing Organization Address City/State/Zipcode Ph one Number [place] documented in this encounter Visit Diagnoses Diagnosis Encounter for consultation documented in this encounter
--- OUTSIDE RECORDS SUMMARY | 2019-12-17 23:22 | XMS REPORT | Encounter Summary ---
Author Author [facility] Organization [facility] Address Unknown Phone Unavailable Care Team Providers Care Print Room Worker Name Role Phone Reji Jacob PCP Encounter Details Care Team Description Date Type Department Encounter for consultation 11/28/2019 Imaging [facility] Virtual Revenu e Appointment Location [...] for FOR PACS 2:01 PM CDT consultation documented in this encounter Results * CT Outside images for PACS Chest (11/28/2019 2:01 PM CDT) Specimen Performing Organization Address City/State/Zipcode Ph one Number [place] documented in this encounter Visit Diagnoses Diagnosis Encounter for consultation documented in this encounter
--- OUTSIDE RECORDS SUMMARY | 2019-12-17 23:22 | XMS REPORT | Encounter Summary ---
Author Author [facility] Organization [facility] Address Unknown Phone Unavailable Care Team Providers Care Tar Heat Exchanger Cleaner Name Role Phone Reji Jacob PCP Encounter Details Care Team Description Date Type Department 12/01/2019 Imaging [facility] Virtual [...] Diag nosis IR OUTSIDE IMAGES FOR Routine 12/01/2019 Encounte r for PACS 7:23 AM CDT consultation documented in this encounter Results * IR Outside images for PACS (12/01/2019 7:23 AM CDT) Specimen Performing Organization Address City/State/Zipcode Ph one Number [place] documented in this encounter Visit Diagnoses Not on filedocumented in this encounter
--- OUTSIDE RECORDS SUMMARY | 2019-12-17 23:22 | XMS REPORT | Encounter Summary ---
Author Author [facility] Organization [facility] Address Unknown Phone Unavailable Care Team Providers Care Sketch Maker Name Role Phone Reji Jacob PCP Reason for Visit * Auth/Cert Referred By Contact Referred To Contact Status Reason Specialty Diagnoses / Procedures Diagnoses AORTIC STENOSIS P rocedures VA RPLCMT PROST AORTIC VALVE OPEN XCP HOMOGRF/STENT AORTIC VALVE REPLACEMENT (MECHANICAL) ECHOCARDIOGRAM, TRANSESOPHAGEAL POSSIBLE REPLACEMENT OF ASCENDING AORTA Encounter Details Care Team Description Date Type Department Reuben Li MD [address] [place] [address] [phone] AORTIC VALVE REPLACEMENT WITH 25MM [facility]S MECHANICAL 12/01/2019 Surgery [facility] [address] [place] [address] Social History Date Tobacco Use Types Packs/Day [...] encounter Discharge Instructions * Pre-Procedure Instructions* Poppy Heart RN - 11/28/2019 10:15 AM CDT Pre/post op teaching completed per yessica-operative teaching protocol including He art Hugger, arterial line and IS. Patient verbalized [...] stay. ? Parking entrance at either the [facility]([address] Entrance 4, with cloth handler parking or at at the [facility], Entrance 1. Screeners will be locate d [...] RN ANP - 12/07/2019 7:14 AM CDT [facility] Cardiothoracic and Vascular POST-OP Progress Note Date: 12/07/2019 POD #6 Mechanical AVR ([facility]) Surgeon: Guillermo Subjective: no complaints this am, off oxygen, HR controlled Vitals: Vitals: 12/07/19 0354 12/07/19 0518 BP: 93/74 Pulse: 99 Resp: 16 Temp: [...] Vitals: 12/04/19 0335 12/05/19 0330 12/06/19 0334 12/07/19 0518 Weight: (!) 138.8 kg (306 lb) (!) [...] 10/2018 - follows with Dr. Medina in [place], [place] 5. Obesity 6. Chronic anticoagulation - [...] CDT Patient completed ambulation in hallway with rehabilitation specialist/mobility team unde r direction of nursing staff. * Margo Wayne RN ANP - 12/06/2019 7:25 AM CDT [facility] Cardiothoracic and Vascular POST-OP Progress Note Date: 12/06/2019 POD #5 Mechanical AVR ([facility]) Surgeon: Guillermo Subjective: [...] Trend: Vitals: 12/03/19 1039 12/04/19 0335 12/05/19 0330 12/06/19 0334 Weight: (!) 140.8 kg (310 lb 8 [...] 10/2018 - follows with Dr. Medina in [place], [place] 5. Obesity 6. Chronic anticoagulation - [...] and gloves) during the patient encounter. Margo FORD-C 12/06/2019 7:25 AM * Kristen Cox - 12/05/2019 1:45 PM CDT Patient completed ambulation in hallway with rehabilitation specialist/mobility team unde r direction of nursing staff. * Alisia Chaparro NP - 12/05/2019 6:34 AM CDT [facility] Cardiothoracic and Vascular POST-OP Progress Note Date: 12/05/2019 POD #4 Mechanical AVR ([facility]) Surgeon: Guillermo Subjective: 100.4 temp overnight. No other acute events. Feels achy. C/o abdomin al cramping. States back hurts from chair/bed Vitals: Vitals: 12/04/198 12/05/19329 BP: 96/54 120/57 Pulse: (!) 106 (!) [...] last 7 days Lab Units 12/05/19 0045 12/04/1911412/03/1912412/01/19 2351 SODIUM MEQ/L -- 129* 129* -- [...] Weight Trend: Vitals: 12/02/19 0400 12/03/19 1039 12/04/1933412/05/19329 Weight: (!) 141.4 kg (311 lb 11.7 [...] 10/2018 - follows with Dr. Medina in [place], [place] 5. Obesity 6. Chronic anticoagulation - [...] and gloves) during the patient encounter. Alisia FORD-C 12/05/2019 6:34 AM * Fifi Bach FNP - 12/04/2019 6:10 AM CDT [facility] Cardiothoracic and Vascular POST-OP Progress Note [...] 12/01/19 0700 12/02/19 0400 12/03/19 1039 12/04/19 033 Weight: (!) 140.7 kg (310 lb 3 [...] s/p ablation. Follows with Dr. Medina in [place], [place]. 4. Post operative pain, expected. Received 2 doses Toradol yesterday. Prn oxycod one, APAP, scheduled Neurontin. 5. Hyponatremia. Na 129 again. Monitor. Home when O2 weaned, INR therapeutic. Lives in [place], [place]. PPE Statement: MARIA A العراقي and Dr. Lemus used Yellow precautions (Level 3 mask and gloves) during the patient encounter. Fifi aBch 12/04/2019 6:11 AM Making progress, but slowly. Still on O2. He can hear his valve clicking. CXR ok except for volume loss at left base. INR hasn't yet bumped. Home in or so. * Ashlyn Peña RN - 12/03/2019 10:25 AM CDT AVR 12/01/19. Spoke with patient about the benefits of Outpatient Cardiac Rehab. Stated he is interested in attending at [facility] in [place], [place]. Given bro ripe from program. I will fax his contact information and order to the program for follow-up with him at home. * Fifi Bach FNP - 12/03/2019 6:15 AM CDT [facility] Cardiothoracic and Vascular POST-OP Progress Note Date: 12/03/2019 POD #2 mechanical AVR Surgeon: Guillermo Subjective: Pain is well controlled this morning. [...] Trupti Juarez DATE of SERVICE: 12/02/2019 CPI: [id number] AGE: 34 y.o. : 1985 DATE OF [...] in diameter) CARDIAC CATHETERIZATION 07/10/2019 Performed in [place]. Normal ccoronaries. ELECTROPHYSIOLOGY STUDY POSSIBLE RFA OF SVT 10/2018 Performed at [facility] (AVNRT ablation of slow pathway) IMPLANTABLE LOOP RECORDER PLACEMENT Performed in [place], [place] RIGHT HEART CATHETERIZATION 07/10/2019 Performed in [place]. RA 14 RV 37/14 PA 39/13/28 PCWP [...] gabapentin, and Lidoderm patch. CI 3.3, 3.4. STEEL PLATE PRINTER 390. ROS: 10 points reviewed and found [...] metabolic status including nutrition, and medications. Trupti Juarez is s/p AVR. Start BB today as [...] I personally reviewed the following images: CXR I, Palma Ramírez NP, have reviewed all of these findings and the overall assessm ent and plans for the day are discussed and documented in the Medical Record Not e. I was personally present and involved in all aspects of patient care. Level 3 Palma Ramírez NP 12/02/2019 5:40 AM * Naila Gudino RRT - 12/01/2019 3:47 PM CDT Respiratory Care [...] Trupti Juarez DATE of SERVICE: 12/01/2019 CPI: [id number] AGE: 34 y.o. : 1985 DATE OF [...] Depression Morbid obesity (HCC) VT (ventricular tachycardia) ([facility]) 05/2018 with aberrancy PAST SURGICAL HISTORY: Past Surgical History: Procedure Laterality Date CARDIAC CATHETERIZATION 05/21/2018 normal cors. dilated ascending aorta (47 mm in diameter) CARDIAC CATHETERIZATION 07/10/2019 Performed in [place]. Normal ccoronaries. ELECTROPHYSIOLOGY STUDY POSSIBLE RFA OF SVT 10/2018 Performed at [facility] (AVNRT ablation of slow pathway) IMPLANTABLE LOOP RECORDER PLACEMENT Performed in [place], [place] RIGHT HEART CATHETERIZATION 07/10/2019 Performed in [place]. RA 14 RV 37/14 PA 39/13/28 PCWP [...] reviewed all of these findings and reviewed CXR imaging. The overall assessment and plans for the day are discussed and do cumented in the Medical Record Note. I was personally present and involved in al l aspects of patient care. Critical care time 35 min KIM Ho documented in this encounter H&P Notes * Reuben Li MD - 12/01/2019 7:14 AM CDT [facility] H&P NAME: Trupti Juarez ADMISSION DATE: 12/01/2019 : 1985 AGE: 34 y.o. PCP: Reji Jacob MD ATTENDING: Reuben Li MD HISTORY OF PRESENT ILLNESS: Mr. Juarez is a pleasant 34 y.o. male who presents to [facility] this morning for aortic valve replacement with [...] and VT s/p ablation in 10/2018. In 2018 he developed VT requiring defibrillat ion. He was referred to [facility] in [place] for EPS with RFA, which was preformed [...] been following with Dr. Medina in the [place] [facility]. He has been referred by Dr. [...] in diameter) CARDIAC CATHETERIZATION 07/10/2019 Performed in [place]. Normal ccoronaries. ELECTROPHYSIOLOGY STUDY POSSIBLE RFA OF SVT 10/2018 Performed at [facility] (AVNRT ablation of slow pathway) IMPLANTABLE LOOP RECORDER PLACEMENT Performed in [place], [place] RIGHT HEART CATHETERIZATION 07/10/2019 Performed in [place]. 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 The [...] PRN IV dilau did (see MAR). [facility]ICU BUS AND SYS INTEGRATION SENIOR MANAGER, Cara Hollis, called. BUS AND SYS INTEGRATION SENIOR MANAGER ordered a one time dose of vickie apentin 200mg and PRN IV toadol q 6 hrs. documented in this encounter Miscellaneous Notes * Discharge Planning - Savita Tarango RN - 12/08/2019 10:24 AM CDT Discharge Planning Interventions General Discharge Note Anticipated discharge disposition: Home Self Care DC Wednesday 12/06 Faxed DC Summary to Dr Jacob @ [phone] Nichol Tobar@ [phone]. Radha Tarango RN [facility] [phone] * Nursing Discharge - Dinora Ledezma RN - 12/07/2019 2:34 PM CDT Nursing Discharge Note Discharge instructions reviewed with patient. All questions and concerns answere d. Prescriptions and temporary valve card given to patient. Taken out via wheel hair with all of belongings. Patient/family satisfied with progress made towards goals and ready for discharg e. * Krames patient edu - Dinora Ledezma [...] information carefully each time. Talk to your marine tower operator regarding the use of this medicine in children. Speci al care may be needed. What side effects may I notice from receiving this medicine? Side effects that you should report to your doctor or health geriatric care manager as soon as possible: allergic reactions like [...] (report to your doc tor or health geriatric care manager if they continue or are bothersome): diarrhea hair loss What may interact with this medicine? Do not take this medicine with any of the following medications: agents that prevent or dissolve blood clots aspirin or other salicylates danshen dextrothyroxine mifepristone Chicora's Wort red yeast rice This medicine may [...] this medicine? Visit your doctor or health geriatric care manager for regular checks on your progre ss. [...] oft en. Notify your doctor or health geriatric care manager and seek emergency treatment if you develop [...] phone number of your doctor or health geriatric care manager or person to contact in an emergency. Do not start taking or stop taking any medicines or lvqi-trk-wimzqge medicines except on the advice of your doctor or health geriatric care manager. You should discuss your diet with your doctor or health geriatric care manager. Do n ot make major changes in [...] risks and her options with her health geriatric care manager. Avoid sports and activities that might cause injury while you are using this me dicine. Severe falls or injuries can cause unseen bleeding. Be careful when usin g sharp tools or knives. Consider using an electric razor. Take special care bru shing or flossing your teeth. Report any injuries, bruising, or red spots on the skin to your doctor or health geriatric care manager. If you have an illness that causes [...] ntal work, tell your doctor or health geriatric care manager that you have been takin g this medicine. NOTE:This sheet is a summary. It may not cover all possible information. If you have questions about this medicine, talk to your doctor, pharmacist, or health care provider. Copyright 2020 [employer] * Sanames patient edu - Dinora Ledezma [...] information carefully each time. Talk to your marine tower operator regarding the use of this medicine in children. Speci al care may be needed. What side effects may I notice from receiving this medicine? Side effects that you should report to your doctor or health geriatric care manager as soon as possible: allergic reactions like [...] (report to your doc tor or health geriatric care manager if they continue or are bothersome): constipation [...] to an official disposal site. Contact the [facility] at or your [facility] to find a site. If you [...] this medicine? Tell your doctor or health geriatric care manager if your pain does not go away, [...] days, call your docto r or health geriatric care manager. Your mouth may get dry. Chewing sugarless gum or sucking hard candy, and drinki ng plenty of water may help. Contact your doctor if the problem does not go away or is severe. NOTE:This sheet is a summary. It may not cover all possible information. If you have questions about this medicine, talk to your doctor, pharmacist, or health care provider. Copyright 2020 [employer] * Emiliano patient [facility] - Dinora Ledezma RN - 12/07/2019 12:13 PM CDT 1506 Gabapentin capsules or tablets What is this [...] information carefully each time. Talk to your marine tower operator regarding the use of this medicine in children. While this drug may be prescribed for children as young as 3 years for selected condi tions, precautions do apply. What side effects may I notice from receiving this medicine? Side effects that you should report to your doctor or health geriatric care manager as soon as possible: allergic reactions like skin rash, itching or hives, swelling of the face , lips, or tongue breathing problems suicidal thoughts, mood changes Side effects that usually do not require medical attention (report to your doc tor or health geriatric care manager if they continue or are bothersome): dizziness [...] this medicine? Visit your doctor or health geriatric care manager for regular checks on your progre ss. You may want to keep a record at home of how you feel your condition is resp onding to treatment. You may want to share this information with your doctor or health geriatric care manager at each visit. You should contact your doctor or health geriatric care manager if your seizures get worse or if you have any new types of se izures. Do not stop taking this medicine or any of your seizure medicines unless instructed by your doctor or health geriatric care manager. Stopping your medicine s uddenly can increase [...] or dying should be reported to your [facility] geriatric care manager right away. Women who become while using this medicine may enroll in the [facility] Antiepileptic Drug Registry by calling . This miesha stry collects information about the safety of antiepileptic drug use during preg ching. NOTE:This sheet is a summary. It may not cover all possible information. If you have questions about this medicine, talk to your doctor, pharmacist, or health care provider. Copyright 2020 [employer] * Emiilano patient juan - Elizabeth LedezmaRODNEY vera - 12/07/2019 12:13 PM CDT 94723 Aspirin, ASA chewable tablets What is this [...] o ften than directed. Talk to your marine tower operator regarding the use of this medicine in [...] should report to your doctor or health geriatric care manager as soon as possible: allergic reactions like [...] (report to your doc tor or health geriatric care manager if they continue or are bothersome): diarrhea [...] if prescribed by your doctor or health geriatric care manager. Do not take aspirin or aspirin-like medicines [...] pharmacist, or health care provider. Copyright 2020 [employer] * Krames patient edu - Dinora Ledezma [...] on label or package. Talk to your marine tower operator regarding the use of this medicine in children. While this drug may be prescribed for children as young as 12 years for selected cond itions, precautions do apply. What side effects may I notice from receiving this medicine? Side effects that you should report to your doctor or health geriatric care manager as soon as possible: allergic reactions like skin rash, itching or hives, swelling of the face , lips, or tongue breathing problems chest pain or chest tightness dizzines Side effects that usually do not require medical attention (report to your doc tor or health geriatric care manager if they continue or are bothersome): tingling, [...] without asking your do ctor or health geriatric care manager. What if I miss a dose? Apply [...] s for which your doctor or health geriatric care manager has prescribed. NOTE:This sheet is a summary. It may not cover all possible information. If you have questions about this medicine, talk to your doctor, pharmacist, or health care provider. Copyright 2020 [employer] * Emiliano patient [facility] - Dinora Ledezma RN - 12/07/2019 12:13 PM CDT [id number] Hyponatremia Hyponatremia means low sodium levels in [...] confusion Fainting or loss of consciousness Seizure 2552-8981 [employer]. [address] [place] [address] 16 969. All rights reserved. This information is not intended as a substitute for [facility] medical care. Always follow your healthcare professional's instructi ons. * Emiliano patient edu - Dinora Ledezma RN - 12/07/2019 12:13 PM CDT 32854 Eating Heart-Healthy Foods Eating has a big [...] on added fat and salt. Look on e internet for lower-fat, lower-sodium recipes. Also, try [...] basil, cilantro, ci nnamon, pepper, and sunny. 3986-7737 [employer]. [address] [place] [address] 47 11. All rights reserved. This information is not intended as a substitute for [facility] medical care. Always follow your healthcare professional's instructi ons. * Emiliano patient edu - Dinora Ledezma RN - 12/07/2019 12:13 PM CDT 13610 Heart Valve Problems: Aortic Stenosis Aortic stenosis [...] valve, even if you dont have symptoms. 2323-5171 [employer]. [address] [place] [address], [place], [place] [address]. All rights reserved. This information is not [...] PT Visit Info Patient/Family Reports Pt reports 3/10 chest pain. Gives consent to treat. PT [...] support Sari Bhardwaj,PT,DPT Physical Therapist Voalte Number: [phone] * End of Shift Note - Syl [...] maintain pt safety. * Discharge Planning - Savita Tarango RN - 12/05/2019 4:47 PM CDT Discharge Planning Interventions General Discharge Note Anticipated discharge disposition: Home Self Care Additional discharge planning information: INR 1.4 Needs to be 2 for DC. Plan home self care. Has support at home. Has a ride Home at DC. Talked with Margo GREENBERG via Voalte. She is setting up his follow up visit with card iology and were his INR needs to be sent. Patient from [facility]. Will use local lab. See my note from 12/03 on his sander hand. Radha Tarango RN [facility] [phone] * Therapy Note - Jm Araujo PTA [...] PT;Safe to DC home with family support . Steven Araujo PTA III Physical Therapist Drug Abuse Social Worker Sharmin phone: [phone] * End of Shift Note - Alma [...] safety. * Therapy Note - Jm Araujo, SUSU - 12/04/2019 1:58 PM CDT 12/04/19 1001 [...] Wm. Steven Araujo PTA III Physical Therapist Drug Abuse Social Worker Sharmin phone: [phone] * Discharge Planning - Savita Tarango RN - 12/04/2019 10:10 AM CDT Discharge Planning Interventions General Discharge Note Anticipated discharge disposition: Home Self Care Additional discharge planning information: POD # 3 Mech AVR Home on coumadin. INR 1.2 Weaning O2 today. PCP Dr Isidra Tobar [facility], Sarahi Castanon Musical Instrument Mechanic: Sarahi Cohen [place] Contact: Dr Toen Medina see patient in [facility] [place]. Contact: Patient'S/O Misty Dave Will provide ride home. Friends will stay with him at time of DC. Plan home self care. Radha Tarango RN [facility] [phone] * End of Shift Note - Alma [...] CG completed, awaiting return page. Repaged at [phone], page returned by Dr Roxane hudson @0422, gave TO to give Metoprolol early 0600. [...] now 120 s and 140s-150s with activity. BUS AND SYS INTEGRATION SENIOR MANAGER notified and ordered a 1x dose of [...] pt safety. * Therapy Note - Jm Araujo PTA - 12/03/2019 4:30 PM CDT 12/03/19 1425 [...] . Steven Araujo PTA III Physical Therapist Drug Abuse Social Worker Sharmin phone: [phone] * End of Shift Note - Mayela [...] Spoke to his contact which is his S.O Misty Dave via phone as am working re [employer]. S.O lives in separate residence but she and a friend will be providing 24/ a sst at dc. Pt works FT and indep/ active prior to surgery No Hx amb devices/ DME/ Oxygen/ PAC facilities/ rehab PCP confirmed as Nichol Tobar, [facility] , [facility] [place] Musical Instrument Mechanic noe Jacob, [facility] ; Additional information: Mech AVR. Hx Bicuspid AV/ , AAA, VT/ Ablation RODNEY Goodrich extrusion die coordinator, Surveying Crew Stake Runner medical team, Synchro Assembler met for patient rounds to discuss progression of care and dc planning. Referral to see patient was placed by Referral Source: Care Progression , Referral Reason: Discharge planning, Initial Assessment Initial assessment completed and Information obtained from: : Abdelrahman Dave Introduced self and purpose of meeting with the patient and is agreeable to inte rview at this time. Patient's Living Arrangement: Apartment, Alone Patients support system has been Support System: Spouse/significant other, Fr iends/neighbors Patient has verbalized the following concerns at discharge: Family Concerns: No Pt has Payor: Macheen / Plan: OUT OF AREA PREF CARE / Product Type: *No Product type* / Legal Information: Patient does not have advance directive Discussion of advance directives and information provided: Yes Is the patient interested in establishing an advance directive?: No, the patient would not like to discuss establishing an advance directive Healthcare Agent Appointed: Yes Healthcare Agent's Name: Misty Dave (s.dinora.) Healthcare Agent's Patient currently uses at home: Assistive Devices: None Respiratory items:: (Denies) Patient states their Income Source: Employed. , Income/Expense Information: Income exceeds expenses Resources Available: Rx benefits Verified that patients primary care physician is Nichol Tobar APRN and [facility]ip [facility] [place], [place] [facility] [address] [facility] [address] [facility] [address] Facesheet verified. Ericka Woods RN, BSN Synchro Assembler [phone] * End of Shift Note - Priscilla [...] deep breathing & I.S. use. Transferred to [facility] Goals per Patient Condition Skin Integrity Plan [...] stay: Plan: * Therapy Note - Denise Malik, PT - 12/02/2019 1:47 PM CDT 12/02/19 [...] Depression Morbid obesity (HCC) VT (ventricular tachycardia) ([facility]) 05/2018 with aberrancy Patient/Family Reports Pt seen [...] him upon dc Prior Function Level of [place] Independent with ADLs;Independent with functional transfer s;Independent with ambulation;Independent with homemaking Receives Help From Friend(s) Vital Signs SpO2 92 % O2 Device High flow nasal cannula O2 Flow Rate (L/min) 4 L/min Pulse (!) 131 (with activity ) Heart Rate Source Monitor Cognition Overall Cognitive Status WFL Bed Mobility Supine to Sit Mod assist [...] Denise Malik PT, DPT Physical Therapist Voalte: [phone] * Therapy Note - Denise Malik, PT - 12/02/2019 11:20 AM CDT 12/02/19 1120 PT Visit Info Attempted but was unable to see patient (date) 12/02/19 Reason patient was not seen Pt refused PT reason not seen - extended comment Pt declines and prefers to complete PT rita luation this afternoon. PT will return between [phone]. Notified RN of PT plan . Denise Malik PT, DPT Physical Therapist Voalte: [phone] * End of Shift Note - Adair [...] to 4L HFNC . Insulin gtt started. STEEL PLATE PRINTER: 250. UOP: 1.7L. OOBTC @ 1730. Sys [...] tomorrow. Sari Bhardwaj,PT,DPT Physical Therapist Voalte Number: [phone] * Brief Operative Note - Reuben Li MD - 12/01/2019 12:21 PM CDT Brief Operative Note Trupti Juarez 12/01/2019 Event Time In Procedure / Incision Start 09 Pre-op Diagnosis: Aortic valve stenosis, bicuspid valve Post-op Diagnosis: same Procedure: AORTIC VALVE REPLACEMENT WITH 25MM [facility] MECHANICAL, N/A ECHOCARDIOGRAM, TRANSESOPHAGEAL, N/A Surgeon(s) and Role: * Traci Li MD - Primary Anesthesia Type: General Staff: Facilities Officer: Cyndy Kendall RN; Melva Nair RN Information Technology Associate: Christiano Quinonez CCP Physician Drug Abuse Social Worker: KIM Kessler-C Scrub Person: Estrella Pizano RN Anesthesiologist: Rusty Ventura MD Anesthesiologist Drug Abuse Social Worker: JOSÉ ANTONIO Ron Findings: Estimated Blood Loss: Specimens: . ID Source Type Tests Collected By Collected At 1 Aortic Valve Tissue TISSUE PATHOLOGY OR BIOPSY Reuben Li MD 12/01/19 1038 Description: AORTIC VALVE Comment: Pre-op diagnosis: AORTIC STENOSIS Implants: @ORIMPLANT@ Complications: PPE Statement: 2 chest tubes 1 A and 2 V pacing wires Dictation # [id number] Traci Li Date: 12/01/2019 Time: 12:21 PM * Operative Note - Reuben Li MD - 12/01/2019 12:21 PM CDT Name: TRUPTI JUAREZ MRN: Date of : 1985 Attending Physician: Traci Li MD Date of Procedure: 12/01/2019 DATE OF OPERATION: 12/01/2019 PREOPERATIVE DIAGNOSES: Symptomatic aortic valve stenosis. POSTOPERATIVE DIAGNOSIS: Symptomatic aortic valve stenosis. OPERATION: Aortic valve replacement ([employer] [place] mechanical aortic valve, alisson bowles #[id number] serial #[id number]). SURGEON: Dr. Glen Li. ADVANCED MANUFACTURING ENGINEER: KIM Martinez INDICATIONS FOR OPERATION: This 34-year-old [...] material of a 25 mm S [employer] [place] mechanical prosthesis. This valve was calculated to [...] was closed using a combination of #6 [id number] circumferential stainless steel wire and double stranded stainle ss steel wire. The remainder of the incision was closed in layers using absorba ble suture. At the end of the operation, the patient was in normal sinus rhythm with excellent hemodynamics. Traci Li MD [id number] CC: cc: Tone Medina MD, Reji Jacob [...] FRONTAL 1:31 PM CDT HGB K POC ([facility] ONLY) Routine 12/01/2019 1:09 PM CDT GLUCOSE [...] Protime 21.1 (H) 11.4 - 15.0 sec [facility] INR 1.9 (H) 0.8 - 1.2 [facility] Specimen Blood Performing Organization Address City/State/[facility] Ph one Number [address] [address] LABORATORIES [facility] [address] [place] [address] * Basic Metabolic Panel (12/06/2019 12:31 AM CDT) Only the most recent of 4 results within the time period is included. Sodium 134 133 - 147 MEQ/L [facility] Potassium 3.6 3.5 - 5.3 MEQ/L [facility] Chloride 98 96 - 112 MEQ/L [facility] Carbon Dioxide 31 20 - 32 MEQ/L [facility] Anion Gap 4 (L) 5 - 17 [facility] Calcium 8.7 8.4 - 10.5 mg/dL [facility] Glucose 111 (H) 70 - 100 mg/dL [facility] Blood Urea 16 7 - 26 mg/dL [facility] Creatinine 0.8 0.6 - 1.3 mg/dL [facility] eGFR Male AA >130 60 - 200 [facility] eGFR Male 112 60 - 200 [facility] Non-AA mL/min/1.73sq m [facility] Lab Specimen Blood Performing Organization Address City/[facility] Ph one Number [address] [address] LABORATORIES [facility] [address] [place] [address] * Complete Blood Count (12/06/2019 12:31 AM CDT) Only the most recent of 4 results within the time period is included. WBC 9.27 4.00 - 11.00 TH/uL [facility] RBC 3.56 (L) 4.31 - 5.84 MIL/uL [facility] Hemoglobin 10.5 (L) 13.0 - 17.0 g/dL [facility] Hematocrit 30 (L) 40 - 50 % [facility] MCV 83 80 - 99 fL [facility] MCH 30 27 - 34 pg [facility] MCHC 36 32 - 36 % [facility] RDW 12.5 11.5 - 14.5 % [facility] Platelet Count 213 140 - 400 TH/uL [facility] MPV 9.8 9.4 - 12.3 fL [facility] Nucleated RBCs 0 0 - 0 /100 [facility] Specimen Blood Performing Organization Address [facility] Ph one Number [address] [address] LABORATORIES [facility] [address] [place] [address] * Potassium (12/05/2019 12:45 AM CDT) Only the most recent of 4 results within the time period is included. Potassium 3.7 3.5 - 5.3 MEQ/L [facility] Specimen Blood Performing Organization Address City/[facility] Ph one Number [facility] [address] [address] LABORATORIES [facility] [address] [place] [address] * XR Chest 2 views (PA and lateral) (12/04/2019 7:12 AM CDT) Specimen Impressions Performed At Left worse than right bibasilar subsegmental atelecta ses. [place] Mildly interstitial pulmonary edema. READING SITE: Home, due to Covid-19 Narrative Performed At Patient: TRUPTI JUAREZ Sex#: M #: 1985 Taylor# : [id number] Location: [id number] Acces eduarda#: [id number] Procedure Requested: [id number] XR CHEST 2 VIEWS (PA AND LATERAL) Reason for Exam: S/P mechanical AVR Exam Ordered: 12/04/2019 000 0 Exam Date/Time: 12/04/201912 Begin exam date/time: 12/04/2019 0704 XR CHEST [...] TRUPTI JUAREZ Sex#: M #: 1985 Taylor#: [id number] Location: [address] [id number] Procedure Requested: [id number] XR CHEST 2 VIEWS (PA AND LATERAL) Reason for Exam: S/P mechanical AVR Exam Ordered: 12/04/2019 0000 Exam Date/Time: 12/04/201912 Begin exam date/time: 12/04/2019 0704 XR CHEST [...] Home, due to Covid-19 Performing Organization Address [facility] one Number [place] * Electrocardiogram (ECG) (12/04/2019 3:39 AM CDT) Only the most recent of 2 results within the time period is included. 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: [id number] : 1985 Requested By: PALMA RAMÍREZ Order Number: [id number] Reading MD: Ronnell Damian Measurements Intervals [place] Rate: 120 P: 37 VA: 148 QRS: 15 QRSD: 102 T: 29 QT: 328 QTc: 464 Interpretive Statements SINUS TACHYCARDIA PROBABLE LEFT VENTRICULAR HYPERTROPHY ST ELEVATION, CONSIDER PERICARDITIS Electronically Signed On 12-04-2019 10:36 :48 CDT by Ronnell Damian Procedure Note Interface, External Ris In - 12/04/2019 10:36 AM CDT [facility] Test Date: 2019-12-04 Pat Name: TRUPTI JUAREZ Department: [address] Room: [facility] Gender: Male Horse Trekking Guide: [id number] : 1985 Requested By: PALMA RAMÍREZ Order Number: [id number] Reading : Ronnell Damian Measurements Intervals [place] Rate: 120 P: 37 VA: 148 QRS: 15 QRSD: 102 T: 29 QT: 328 QTc: 464 Interpretive Statements SINUS TACHYCARDIA PROBABLE LEFT VENTRICULAR HYPERTROPHY ST ELEVATION, CONSIDER PERICARDITIS Electronically Signed On 12-04-2019 10:36:48 CDT by Ronnell Damian Performing Organization Address [facility]/State/Zipcode Ph one Number TRACEMASTER * GLUCOSE POC (12/03/2019 7:42 AM CDT) Only the most recent of 21 results within the time period is included. Glucose POC 134 (H) 70 - 100 mg/dL [facility]ORATORIES Specimen Performing Organization Address City/State/Zipcode Ph one Number [address] [address] LABORATORIES * XR Chest single view frontal [...] JUAREZ Sex#: M #: 1985 Taylor# : [id number] Location: [address] ICU [id number] Access ion#: [id number] Procedure Requested: [id number] XR CHEST SINGLE VIEW FRONTAL Reason for [...] TRUPTI JUAREZ Sex#: M #: 1985 Taylor#: [id number] Location: [address] ICU [id number] Procedure Requested: [id number] XR CHEST SINGLE VIEW FRONTAL Reason for [...] Home, due to Covid-19 Performing Organization Address [facility] one Number [place] * HGB/K POC (12/01/2019 1:09 PM CDT) Hemoglobin 15.7 13.0 - 17.0 g/dL [facility]IES Potassium 5.4 (H) 3.5 - 5.3 MEQ/L [facility]IES Specimen Performing Organization Address [facility] one Number [address] [phone] LABORATORIES * Lytes//HGB/CA POC (12/01/2019 10:51 AM CDT) Only the most recent of 3 results within the time period is included. [facility] Ionized Calcium 4.3 (L) 4.5 - 5.3 mg/dL [facility] Sodium 132 (L) 133 - 147 MEQ/L [facility] Potassium 6.6 (C) 3.5 - 5.3 MEQ/L [facility] Specimen Arterial Performing Organization Address [facility] one Number [facility] [address] [place] [address] LABORATORIES [facility] [address] [place] [address] * Arterial Blood Gas + Coox (12/01/2019 10:51 AM CDT) Only the most recent of 3 results within the time period is included. Pathologist [facility] Hemoglobin 12.1 (L) 13.0 - 17.0 g/dL [facility] Blood [facility] Oxyhemoglobin 95.8 95.0 - 100.0 % THB [facility] Carboxyhemoglob 3.4 (H) 0.0 - 1.5 % THB [facility] in [facility] Methemoglobin 0.5 0.0 - 1.5 % THB [facility] Total Oxygen 99.7 95.0 - 100.0 % THB [facility] Saturation [facility] O2 Content 16.7 (L) 17.0 - 100.0 mL/dL [facility] Arterial [facility] PO2 Arterial 177 (H) 80 - 100 mm Hg [facility] pCO2 Arterial 41 35 - 45 mm Hg [facility] pH Arterial 7.31 (L) 7.35 - 7.45 units [facility] Bicarbonate 20.6 19.0 - 29.0 MEQ/L [facility] Base Excess -5.4 (L) -3.0 - 3.0 MEQ/L [facility] Specimen Arterial Performing Organization Address [facility] Ph one Number [address] [address] LABORATORIES [facility] [address] [place] [address] * Tissue Pathology or Biopsy (12/01/2019 10:38 AM CDT) Specimen Tissue - Aortic Valve Narrative Performed At [facility] Pathology Group [facility] SURGICAL PATHOLOGY REPORT PATIENT: TRUPTI JUAREZ /AGE/SEX: 1985 (Age: 34) /M ID #: [id number] SUBMITTING PHYSICIAN: Traci Leiva MD CLIENT: [facility] COLLECTED: 12/01/2019 REPORTED: 12/02/2019 SPECIMEN #: [id number] ##################MICROSCOPIC INTERPRET ATION################## Cardiac aortic valve, excision with noris ve replacement: - Nodular calcification and degen erative change. Melva Benitez M.D. Report Electronically Signed Out CDW:12/02/19 ELISA([facility]) CLINICAL HISTORY/IMPRESSION: Aortic valve. SPECIMEN LABELED: Aortic valve GROSS DESCRIPTION: The specimen is received in neutral buf fered formalin, labeled with the patient name and further designated "aortic noris ve." The specimen consists of a 3.2 x 2.7 x 0.6 cm coughlin-white and rubbery piece of soft tissue. Sectioning reveals a red-yellow, calcified cut surface. Roller Leveler sections are submitted in cassette A1 after decalcification. (JOURDAN) jourdan Professional Component performed by ELISA , a [place] Pathologist located at [facility], [address] [place] [address] Technical Component performed at [facility] rhett [facility] [address] If immunohistochemical stains and or in situ hybridization are cited in this report, the performance characteristics were determined by [facility] Pathology Group in compliance with CLIA'88 regulations. Some of these tests rely on the use of 'analyte specific reagents' and are subject to specific l abeling requirements by the FDA. Known positive and negative control tissues d emonstrate appropriate staining. Results should be interpreted with caution give n the likelihood of false negativity on decalcified specimens. This testing was developed b sweetie [facility] Pathology Group. It has not been cleared or approved by the FDA. The FDA has determined that such clearance or approval is not necessary. ###END OF REPORT### Performing Organization Address [facility] one Number [place] [address] [place], [place] [phone] * Activated Clotting Time POC (12/01/2019 10:33 AM CDT) Only the most recent of 3 results within the time period is included. Pathologist [facility] Activated 543 (H) 99 - 130 sec [facility] Clotting Time [facility] Specimen Performing Organization Address City/[facility] Ph one Number [facility] [address] [place] [address] LABORATORIES * Retype Patient ABORH (12/01/2019 7:32 AM CDT) Pathologist [facility] ABORH Type A Positive [facility] Confirm Blood Yes [facility] Specimen Blood Performing Organization Address [facility] one Number [facility] [address] [place] [address] LABORATORIES [facility] [address] [place] [address] * Hemoglobin A1C (12/01/2019 7:23 AM CDT) Pathologist [facility] Hemoglobin A1C 5.6 4.0 - 5.6 % [facility] Comment: Hospital Lab Non-diabetic 4.0 - 5.6 % Prediabetes 5.7 - 6.4 % Diabetes >= 6.5 % Specimen Blood Performing Organization Address City/[facility] Ph one Number [address] [address] LABORATORIES [facility] [address] [place] [address] * IR Outside images for PACS (12/01/2019 7:23 AM CDT) Specimen Performing Organization Address [facility] one Number [place] * RBCs 2 Units (12/01/2019 7:10 AM CDT) Pathologist [facility] 01 - PRODUCT ID Red Blood Cells [facility] 01 - UNIT [id number] [facility] 01 - CROSS Compatible [facility] 01 - STATUS Ready [facility] 01 - PRODUCT [id number] [facility] 01 - BLOOD TYPE A Pos [facility] 02 - PRODUCT ID Red Blood Cells [facility] 02 - UNIT [id number] [facility] 02 - CROSS Compatible [facility] 02 - STATUS Ready [facility] 02 - PRODUCT [id number] [facility] 02 - BLOOD TYPE A Pos [facility] Specimen Blood Performing Organization Address [facility] one Number [address] [phone] LABORATORIES * Antibody Screen (12/01/2019 7:10 AM CDT) Pathologist [facility] Antibody Screen Negative Negative [facility] Specimen Blood Performing Organization Address City/[facility]/Zipcode Ph one Number [facility] [address] [place] [address] LABORATORIES [facility] [address] [place] [address] * ABORH Type (12/01/2019 7:10 AM CDT) ABORH Type A Positive [facility] Specimen Blood Performing Organization Address City/[facility] Ph one Number [facility] [address] [place] [address] LABORATORIES [facility] [address] [place] [address] * XMATCH (12/01/2019 6:25 AM CDT) Specimen Blood Performing Organization Address [facility] one Number [facility] [address] [place], [place] [address] documented in this encounter Visit Diagnoses Not on filedocumented in this encounter Administered Medications Action Date Dose Rate Site Medication Order MAR Action acetaminophen (TYLENOL) tablet 650 mg 650 mg, Oral, Every 6 hours PRN, mild pain (pain score 1-3), Indications: pain, Starting Sun12/05/19 at 1602, Do not exceed 4 GM/DAY of acetaminophen. If 65 or older do not exceed 3 GM/DAY. If chronic alcoholic do not exceed 2 GM/DAY., albuterol (ACCUNEB) 1.25 mg/3 mL (0.042 %) [...] 81 mg Given 12/05/2019 8:26 AM CDT 12/07/2019 9:24 AM CDT 40 mg [...] 20 mg Given 12/06/2019 8:31 AM CDT 12/07/2019 9:22 AM CDT 300 mg gabapentin (NEURONTIN) capsule 300 mg Given 300 mg, Oral, 3 times daily, First dose (after last modification) on Sun12/03/19 at 0900 300 mg Given 12/06/2019 9:35 PM CDT 300 mg Given 12/06/2019 5:00 PM CDT 12/01/2019 7:52 AM CDT Operativ e Site heparin (porcine) 1,000 unit/mL 5,000 Given Units in electrolyte-M in dextrose 5 % (NORMOSOL-M) 1,000 mL OR irrigation As needed, Starting Sun12/01/19 at 0752 , Intra-op 12/02/2019 8:01 AM CDT 10 mg hydrALAZINE (APRESOLINE) injection 10-20 Given mg 10-20 mg, Intravenous, Every 4 hours PRN, high blood pressure, SBP >140, Starting Sun12/01/19 at 1221 10 mg Given 12/02/2019 2:03 AM CDT 10 mg Given 12/01/2019 7:47 PM CDT 12/03/2019 10:11 PM CDT 0.5 [...] 0.5 mg Given 12/02/2019 5:31 PM CDT 12/07/2019 9:22 AM CDT 2 capsules [...] Chest Patch Applied 12/05/2019 8:26 AM CDT 12/06/2019 9:35 PM CDT 200 mg metoprolol succinate (TOPROL-XL) 24 hr Given tablet 200 mg 200 mg, Oral, Nightly, First dose (afte r last modification) on Sun12/06/19 at 2100, DO NOT CRUSH OR CHEW., 12/06/2019 9:35 PM CDT 4 mg ondansetron [...] moderate pain (pain score 4-6), Startin g Sun12/01/19 at 2059 10 mg Given 12/07/2019 9:35 AM CDT [...] mEq/hr through a centra l line., 12/01/2019 7:52 AM CDT 2,000 mL Operativ e Site Ringer's irrigation Given As needed, Starting 12/01/19 at 0752 , Intra-op 12/06/2019 9:35 PM CDT 2 tablets senna-docusate [...] PRN, flatulence, Starting Anisha 12/04/19 at 0918 12/01/2019 10:47 AM CDT 1,000 mL Operativ e Site sodium chloride irrigation (NS) 0.9 % Given As needed, Starting 12/01/19 at 1047 , Intra-op 12/01/2019 7:52 AM CDT 1,000 mg vancomycin (VANCOCIN) injection Given As needed, Starting 12/01/19 at 0752 , Intra-op 12/06/2019 5:00 PM CDT 10 mg warfarin (COUMADIN) tablet 10 mg Given 10 mg, Oral, Every evening, First dose (after last modification) on Sun12/05/19 at 1800, To start POD #1., 10 mg Given 12/05/2019 5:16 PM CDT documented in this encounter
--- OUTSIDE RECORDS SUMMARY | 2019-12-17 23:22 | XMS REPORT | Encounter Summary ---
Author Author [facility] Organization [facility] Address Unknown Phone Unavailable Care Team Providers Care Windows Application Administrator Name Role Phone Reji Jacob PCP Encounter Details Care Team Description Date Type Department Encounter for consultation 11/28/2019 Imaging [facility] Virtual Revenu [...]
--- OUTSIDE RECORDS SUMMARY | 2019-12-17 23:22 | XMS REPORT | Encounter Summary ---
Author Author [facility] Organization [facility] Address Unknown Phone Unavailable Care Team Providers Care Cooling Pan Tender Name Role Phone Reji Jacob PCP Encounter Details Care Team Description Date Type Department Encounter for consultation 11/28/2019 Imaging [facility] Virtual Revenu e Appointment Location Social [...]
--- OUTSIDE RECORDS SUMMARY | 2019-12-17 23:22 | XMS REPORT | Encounter Summary ---
Author Author [facility] Organization [facility] Address Unknown Phone Unavailable Care Team Providers Care Health Education Assistant Name Role Phone Reji Jacob PCP Encounter Details Care Team Description Date Type Department Encounter for consultation 11/28/2019 Imaging [facility] Virtual [...] Diag nosis IR OUTSIDE IMAGES FOR Routine 11/28/2019 Encounte r for PACS 2:01 PM CDT consultation documented in this encounter Results * IR Outside images for PACS (11/28/2019 2:01 PM CDT) Specimen Performing Organization Address City/State/Zipcode Ph one Number [place] documented in this encounter Visit Diagnoses Diagnosis Encounter for consultation documented in this encounter
--- OUTSIDE RECORDS SUMMARY | 2019-12-17 23:23 | XMS REPORT | Encounter Summary ---
Author Author [facility] Organization [facility] Address Unknown Phone Unavailable Care Team Providers Care Sand Mixer Machine Name Role Phone Reji Jacob PCP Encounter [...] 10/24/2019 Encounte r for PACS 8:01 AM KAIAKO KURA KAUPAPA MAORI consultation documented in this encounter Results * IR Outside images for PACS (10/24/2019 8:01 AM KAIAKO KURA KAUPAPA MAORI) Specimen Performing Organization Address City/State/Zipcode Ph one Number [place] documented in this encounter Visit Diagnoses Diagnosis Encounter for consultation documented in this encounter
--- OUTSIDE RECORDS SUMMARY | 2019-12-17 23:23 | XMS REPORT | Encounter Summary ---
Author Author [facility] Organization [facility] Address Unknown Phone Unavailable Care Team Providers Care Crystallography Teacher Name Role Phone Reji Jacob PCP Encounter Details Care Team Description Date Type Department Encounter for consultation 10/22/2019 Imaging [facility] Virtual Revenu e [...] 10/22/2019 Encounte r for PACS 3:24 PM RESTAURANT LEAD consultation documented in this encounter Results * US Outside images for PACS (10/22/2019 3:24 PM RESTAURANT LEAD) Specimen Performing Organization Address City/State/Zipcode Ph one Number [place] documented in this encounter Visit Diagnoses Diagnosis Encounter for consultation documented in this encounter
--- OUTSIDE RECORDS SUMMARY | 2019-12-17 23:23 | XMS REPORT | Encounter Summary ---
Author Author [facility] Organization [facility] Address Unknown Phone Unavailable Care Team Providers Care Chief Construction Inspector Name Role Phone Reji Jacob PCP Encounter Details Care Team Description Date Type Department Encounter for consultation 11/28/2019 Imaging [facility] Virtual Revenu e [...] * IR Outside images for PACS (11/28/2019 2:00 PM CDT) Specimen Performing Organization Address City/State/Zipcode Ph one Number [place] documented in this encounter Visit Diagnoses Diagnosis Encounter for consultation documented in this encounter
--- OUTSIDE RECORDS SUMMARY | 2019-12-17 23:23 | XMS REPORT | Encounter Summary ---
Author Author [facility] Organization [facility] Address Unknown Phone Unavailable Care Team Providers Care Process Plant Operator Name Role Phone Reji Jacob PCP Encounter Details Care Team Description Date Type Department Encounter for consultation 10/24/2019 Imaging [facility] Virtual Revenu [...] 10/24/2019 Encounte r for PACS 8:02 AM PBX TEACHER consultation documented in this encounter Results * CT Outside images for PACS (10/24/2019 8:02 AM PBX TEACHER) Specimen Performing Organization Address City/State/Zipcode Ph one Number [place] documented in this encounter Visit Diagnoses Diagnosis Encounter for consultation documented in this encounter
--- OUTSIDE RECORDS SUMMARY | 2019-12-17 23:23 | XMS REPORT | Encounter Summary ---
Author Author [facility] Organization [facility] Address Unknown Phone Unavailable Care Team Providers Care Developer Architect Name Role Phone Reji Jacob PCP Encounter Details Care Team Description Date Type Department Encounter for consultation 11/28/[address] [facility] Virtual Revenu e [...] Diag nosis CT OUTSIDE IMAGES FOR Routine 11/28/2019 Encounte r for PACS 1:59 PM CDT consultation documented in this encounter Results * CT Outside images for PACS (11/28/2019 1:59 PM CDT) Specimen Performing Organization Address City/State/Zipcode Ph one Number [place] documented in this encounter Visit Diagnoses Diagnosis Encounter for consultation documented in this encounter
--- OUTSIDE RECORDS SUMMARY | 2019-12-17 23:23 | XMS REPORT | Encounter Summary ---
Author Author [facility] Organization [facility] Address Unknown Phone Unavailable Care Team Providers Care Floor Care Technician Name Role Phone Reji Jacob PCP [...] 10/24/2019 Encounte r for PACS 8:03 AM FAMILY SERVICE COUNSELOR consultation documented in this encounter Results * CT Outside images for PACS (10/24/2019 8:03 AM FAMILY SERVICE COUNSELOR) Specimen Performing Organization Address City/State/Zipcode Ph one Number [place] documented in this encounter Visit Diagnoses Diagnosis Encounter for consultation documented in this encounter
--- OUTSIDE RECORDS SUMMARY | 2019-12-17 23:23 | XMS REPORT | Encounter Summary ---
Author Author [facility] Organization [facility] Address Unknown Phone Unavailable Care Team Providers Care Unit Coordinator Name Role Phone Reji Jacob PCP Encounter Details Care Team Description Date Type Department Tone Medina MD [address] [place] [address] [phone] 09/02/2019 Documentation [facility] [address] [place] [address] Social History Date Tobacco Use Types Packs/Day [...]
--- OUTSIDE RECORDS SUMMARY | 2019-12-17 23:23 | XMS REPORT | Encounter Summary ---
Author Author [facility] Organization [facility] Address Unknown Phone Unavailable Care Team Providers Care Stove Refinisher Name Role Phone Reji Jacob PCP Encounter Details Care Team Description Date Type Department Encounter for consultation 11/28/2019 Imaging [facility] [...] for FOR PACS 1:59 PM CDT consultation documented in this encounter Results * CT Outside images for PACS Chest (11/28/2019 1:59 PM CDT) Specimen Performing Organization Address City/State/Zipcode Ph one Number [place] documented in this encounter Visit Diagnoses Diagnosis Encounter for consultation documented in this encounter
--- OUTSIDE RECORDS SUMMARY | 2019-12-17 23:23 | XMS REPORT | Encounter Summary ---
Author Author [facility] Organization [facility] Address Unknown Phone Unavailable Care Team Providers Care Chief Wellness Officer Name Role Phone Reji Jacob PCP Encounter Details Care Team Description Date Type Department Encounter for consultation 10/24/2019 Imaging [facility] Virtual Revenu e Appointment Location Social History [...] 10/24/2019 Encounte r for PACS 8:04 AM CARD TAPE CONVERTER OPERATOR consultation documented in this encounter Results * [place] Outside images for PACS (10/24/2019 8:04 AM CARD TAPE CONVERTER OPERATOR) Specimen Performing Organization Address City/State/Zipcode Ph one Number [place] documented in this encounter Visit Diagnoses Diagnosis Encounter for consultation documented in this encounter
--- OUTSIDE RECORDS SUMMARY | 2019-12-17 23:23 | XMS REPORT | Encounter Summary ---
Author Author [facility] Organization [facility] Address Unknown Phone Unavailable Care Team Providers Care Dividend Clerk Name Role Phone Reji Jacob PCP Encounter Details Care Team Description Date Type Department Encounter for consultation 10/24/2019 Imaging [facility] Virtual Revenu e Appointment Location [...] 10/24/2019 Encounte r for PACS 8:00 AM ROCK CRUSHER consultation documented in this encounter Results * CT Outside images for PACS (10/24/2019 8:00 AM ROCK CRUSHER) Specimen Performing Organization Address City/State/Zipcode Ph one Number [place] documented in this encounter Visit Diagnoses Diagnosis Encounter for consultation documented in this encounter
--- OUTSIDE RECORDS SUMMARY | 2019-12-17 23:23 | XMS REPORT | Encounter Summary ---
Author Author [facility] Organization [facility] Address Unknown Phone Unavailable Care Team Providers Care Senior Solutions Architect Name Role Phone Rjei Jacob PCP Encounter Details Care Team Description [...] 10/22/2019 Encounte r for PACS 3:21 PM OUTPATIENT RECEPTIONIST consultation documented in this encounter Results * IR Outside images for PACS (10/22/2019 3:21 PM OUTPATIENT RECEPTIONIST) Specimen Performing Organization Address City/State/Zipcode Ph one Number [place] documented in this encounter Visit Diagnoses Diagnosis Encounter for consultation documented in this encounter
--- OUTSIDE RECORDS SUMMARY | 2019-12-17 23:23 | XMS REPORT | Encounter Summary ---
Author Author [facility] Organization [facility] Address Unknown Phone Unavailable Care Team Providers Care Break And Load Operator Name Role Phone Reji Jacob PCP Encounter Details Care Team Description Date Type Department Encounter for consultation 10/24/2019 Imaging [facility] Virtual Revenu e Appointment Location Social [...] 10/24/2019 Encounte r for PACS 8:03 AM COMPUTER AIDE consultation documented in this encounter Results * CT Outside images for PACS (10/24/2019 8:03 AM COMPUTER AIDE) Specimen Performing Organization Address City/State/Zipcode Ph one Number [place] documented in this encounter Visit Diagnoses Diagnosis Encounter for consultation documented in this encounter
--- OUTSIDE RECORDS SUMMARY | 2019-12-17 23:23 | XMS REPORT | Encounter Summary ---
Author Author [facility] Organization [facility] Address Unknown Phone Unavailable Care Team Providers Care Rn Vascular Name Role Phone Reji Jacob PCP Reason for Referral * Surgical (Routine) Referred By Contact Referred To Contact Status Reason Specialty Diagnoses / Procedures Tone Medina MD [address] [facility] [address] [place] [address] Reuben Li MD [address] [facility] [address] [facility] [place] [address] Authorized Specialty Services Cardiothoracic Diagnoses Required Surgery Ascending aorta dilatation (HCC) Aortic stenosis due to bicuspid aortic valve * MRI/CAT/PET Scan (Routine) Referred By Contact Referred To Contact Status Reason Specialty Diagnoses / Procedures Tone Medina MD [address] [facility] [address] [place] [address] [facility] [address] [place] [address] Closed Cardiology Diagnoses Ascending aorta dilatation (HCC) Aortic stenosis due to bicuspid aortic valve P rocedures CV CT Heart gated study Reason for Visit * Reason Comments Correspondence Encounter Details Care Team Description Date Type Department Savita Reyna, RN Correspondence 08/29/2019 Telephone [facility] [address] [facility] [address] [place] [address] Social History Date Tobacco Use Types Packs/Day [...] Tone Medina MD - 09/19/2019 12:03 AM CARE AIDE This is definitely not in media AIDE * Telephone Encounter - Joe Moore RN - 09/18/2019 2:36 PM CARE AIDE Spoke with Sindy with chart analysts. SVT ablation is available in care everywher e under documents from [employer]. Date is 10/04/18, type is clinical document only an d provider is Cecilio Verdugo. Routing. AIDE * Addendum Note - Joe Moore RN - 09/17/2019 4:00 PM CARE AIDE Addended by: JOE MOORE on: 09/17/2019 04:00 PM Modules accepted: Orders, SmartSet AIDE * Telephone Encounter - Joe Moore RN - 09/17/2019 3:39 PM CARE AIDE Received call from patient wanting to schedule with Dr. Li. Discussed thi s is with CTS and provided him number of their office, that they are separate of fice. Placed on hold and discussed with Dr. Guillermo Larson's MA. She never re ceived referral, note this was not entered. Apologized for this, she asked it b e faxed to [phone] attention to her. She states she can offer him 10/23 or 10/27. Transferred call. Referral placed and faxed with confirmation fax receiv ed. AIDE * Telephone Encounter - Pauly Beal LPN - 09/17/2019 2:11 PM CARE AIDE Received call from patient stating he had SVT ablation done in 10/[address] Verdugo at [facility] in [place]. I stated I will be routing a message to art conservation policy analyst to request records. He v/u. ARoss AIDE * Telephone Encounter - Savita Reyna RN - 09/05/2019 3:29 PM CARE AIDE 10/06/19 THIRD attempt to reach to ask if he was able to find out where this docto r was AIDE * Telephone Encounter - Savita Reyna RN - 09/04/2019 11:42 AM CARE AIDE 09/04/19 SECOND attempt to reach, he stated that he would have to call Dr Barber ( ?SP) the EP at [facility] in [place] to get name and location of where he had it done and will call us back. AIDE * Telephone Encounter - Joe Moore RN - 09/02/2019 11:26 AM CARE AIDE Spoke with Sindy. She received correspondence from [facility] in [place] rubi t they do not have patient in their record. Note in care everywhere just see th at he had SVT ablation done in [place]. Will call patient to see where had ab lation at and then send back to Sindy to request. Made call to patient and left [facility] message to return call. AIDE * Addendum Note - Korin Farnsworth RN - 09/01/2019 11:15 AM CARE AIDE Addended by: KORIN FARNSWORTH on: 09/01/2019 11:15 AM Modules accepted: Orders, SmartSet AIDE * Telephone Encounter - Korin Farnsworth RN - 09/01/2019 9:10 AM CARE AIDE Called Dr. Glen Li's office ph # [phone]. Dr. Li's nurse will be contacting pt to set up appointment for after 08-17-19. She will be back on . They will access pt's outside records through [employer]. No need to fax. CV CT heart gated ordered. LMTCB with pt for more info about VT ablation records. Routed to [facility] to obtain VT ablation records from [facility] in [place], [place]. AIDE * Telephone Encounter - Savita Reyna RN - 08/29/2019 4:42 PM CARE AIDE ----- Message from Tone Medina MD sent at 08/29/2019 9:22 AM CARE AIDE ----- I just saw him in [place] - he needs to see Dr Glen [...] to get his VT ablation records from [place] (please contact him to get release ) and get it to me for review. I will have echo CDs that need to be loaded for me and Dr Li to review as well - will give to you on Sunday. Thx. AIDE documented in this encounter Plan of Treatment [...]
--- OUTSIDE RECORDS SUMMARY | 2019-12-17 23:23 | XMS REPORT | Encounter Summary ---
Author Author [facility] Organization [facility] Address Unknown Phone Unavailable Care Team Providers Care Airplane Woodworker Name Role Phone Reji Jacob PCP Encounter Details Care Team Description Date Type Department Encounter for consultation 10/24/2019 Imaging [facility] Virtual Revenu [...] 10/24/2019 Encounte r for PACS 8:02 AM QA AUTOMATION ENGINEER consultation documented in this encounter Results * CT Outside images for PACS (10/24/2019 8:02 AM QA AUTOMATION ENGINEER) Specimen Performing Organization Address City/State/Zipcode Ph one Number [place] documented in this encounter Visit Diagnoses Diagnosis Encounter for consultation documented in this encounter
--- OUTSIDE RECORDS SUMMARY | 2019-12-17 23:23 | XMS REPORT | Encounter Summary ---
Author Author [facility] Organization [facility] Address Unknown Phone Unavailable Care Team Providers Care Shoe Sticks Repairer Name Role Phone Reji Jacob PCP Encounter Details Care Team Description Date Type Department Encounter for consultation 11/28/2019 Imaging [facility] [...]
--- OUTSIDE RECORDS SUMMARY | 2019-12-17 23:23 | XMS REPORT | Encounter Summary ---
Author Author [facility] Organization [facility] Address Unknown Phone Unavailable Care Team Providers Care Hospitality Job Titles Name Role Phone Reji Jacob PCP Encounter [...]
--- OUTSIDE RECORDS SUMMARY | 2019-12-17 23:23 | XMS REPORT | Encounter Summary ---
Author Author [facility] Organization [facility] Address Unknown Phone Unavailable Care Team Providers Care Counter Hop Name Role Phone Reji Jacob PCP Encounter Details Care Team Description Date Type Department Encounter for consultation 10/24/2019 Imaging [facility] Virtual Revenu e Appointment [...] 10/24/2019 Encounte r for PACS 8:01 AM BIG 6 DEALER consultation documented in this encounter Results * [place] Outside images for PACS (10/24/2019 8:01 AM BIG 6 DEALER) Specimen Performing Organization Address City/State/Zipcode Ph one Number [place] documented in this encounter Visit Diagnoses Diagnosis Encounter for consultation documented in this encounter
--- OUTSIDE RECORDS SUMMARY | 2019-12-17 23:23 | XMS REPORT | Encounter Summary ---
Author Author [facility] Organization [facility] Address Unknown Phone Unavailable Care Team Providers Care Bag Shop Worker Name Role Phone Reji Jacob PCP [...] 10/24/2019 Encounte r for PACS 7:59 AM WATER RESOURCE ENGINEER consultation documented in this encounter Results * CT Outside images for PACS (10/24/2019 7:59 AM WATER RESOURCE ENGINEER) Specimen Performing Organization Address City/State/Zipcode Ph one Number [place] documented in this encounter Visit Diagnoses Diagnosis Encounter for consultation documented in this encounter
--- OUTSIDE RECORDS SUMMARY | 2019-12-17 23:23 | XMS REPORT | Encounter Summary ---
Author Author [facility] Organization [facility] Address Unknown Phone Unavailable Care Team Providers Care Salon Stylist Name Role Phone Reji Jacob PCP Reason for Visit * Reason Comments Aortic stenosis Encounter Details Care Team Description Date Type Department Tone Medina MD [address] [facility] [address] [place] [address] [phone] Anxiety (Primary Dx); Ascending aorta dilatation (HCC); Aortic stenosis due to bicuspid aortic valve; Morbid obesity (HCC); VT (ventricular tachycardia) (HCC); Hypersomnolence; Cigarette nicotine dependence without complication 08/25/2019 Initial consult [facility] [address] [place] [address] [address] [place], [place] [id number] Social History Date Tobacco Use Types Packs/Day [...] Comments Vital Sign 124/9 08/29/2019 8:48 AM TREE TRIMMER Blood Pressure 80 08/29/2019 8:48 AM TREE TRIMMER Pulse - - Temperature - - Respiratory Rate 96% 08/29/2019 8:48 AM TREE TRIMMER Oxygen Saturation - - Inhaled Oxygen Concentration 140.6 kg (310 lb) 08/29/2019 8:48 AM TREE TRIMMER Weight 180.3 cm (5' 11") 08/29/2019 8:48 AM TREE TRIMMER Height 43.24 08/29/2019 8:48 AM TREE TRIMMER Body Mass Index documented in this encounter Progress Notes * Tone Medina MD - 08/29/2019 8:00 AM TREE TRIMMER [facility] [facility] Appointment Date: 08/29/2019 Reji Jacob MD [address] [place] [id number] RE: Carlos Parrish : 1985 Visit provider: Tnoe Medina MD Dear Reji Jacob MD, I [...] pleasure of meeting him today in the [place] [facility]. His history dates back to 2017, when he presented with ventricular tachycardia w ith a heart rate of 260. He was cardioverted. This was in May 2018. In July 2018, he had another episode of ventricular tachycardia requiring defib rillation. Interestingly, a defibrillator was never offered and he was told by Dr. Barber that he had to go to [facility] for ablation. This happened in October 2018. He had a loop monitor placed by Dr. Mesa in [place], [place] subsequently. He has had episodes almost [...] SNOMED CT(R) VT (ventricular tachycardia) ([facility]) VENTRICULAR TACHYCARDIA Morbid obesity (HCC) MORBID OBESITY Aortic stenosis due to bicuspid aortic valve CONGENITAL STENOSIS OF AORTIC V ALVE Ascending aorta dilatation (HCC) ASCENDING AORTA DILATATION Anxiety ANXIETY Hypersomnolence HYPERSOMNIA Cigarette nicotine dependence without complication NICOTINE DEPENDENCE Past Medical History: Diagnosis Date Anxiety Aortic stenosis due to bicuspid aortic valve Mean AoV gradient 45 07/22 Ascending aorta dilatation ([facility]) 06/2019 5.0 cm ascending aorta; 3.5 cm at sinuses of Valsalva Depression Morbid obesity ([facility]) VT (ventricular tachycardia) ([facility]) 05/2018 with aberrancy Past Surgical History: Procedure Laterality Date CARDIAC CATHETERIZATION 05/21/2018 normal cors. dilated ascending aorta (47 mm in diameter) CARDIAC CATHETERIZATION 07/10/2019 Performed in [place]. Normal coronaries. ELECTROPHYSIOLOGY STUDY WITH POSSIBLE RFA OF VT 10/2018 Performed at [facility] IMPLANTABLE LOOP RECORDER PLACEMENT Performed in [place], [place] RIGHT HEART CATHETERIZATION 07/10/2019 Performed in [place]. RA 14 RV 37/14 PA 39/13/28 PCWP [...] systems reviewed and are negative. Vital Signs 08/29/19 0848 BP: (!) 124/9 Pulse: 80 SpO2: [...] apnea as well. I have asked parvin streeter to undergo a split night sleep study in [place] as soon as possible. I told parvin streeter that untreated sleep apnea will cause arrhythmias, weight gain, and fatigue. It can also lead to palpitations and symptoms of dyspnea as well. Finally, I am quite uncomfortable about him not having a defibrillator in place. I do realize he has a structurally normal myocardium with normal ejection fraction, but I need to get some records from [facility] to see what type of ventricular tachycardia he had. If he just had RV outflow tract tachycardia, ablation should be curati ve and no further action will need to be taken, but I would like to review the r ecords and make more recommendations at that time. I may ask for an electrophys iology opinion from one of my colleagues at [facility] to see what their o ughts are. I would certainly hate to [...] so he does not run up his [facility] bills any more. I have not [...] Medina MD /mimi cc: Traci Li MD TRIMMER documented in this encounter Plan of Treatment [...]
--- OUTSIDE RECORDS SUMMARY | 2019-12-17 23:23 | XMS REPORT | Encounter Summary ---
Author Author [facility] Organization [facility] Address Unknown Phone Unavailable Care Team Providers Care Classroom Assistant Name Role Phone Reji Jacob PCP [...] 10/22/2019 Encounte r for PACS 3:22 PM OPTOMETRIC TECHNICIAN consultation documented in this encounter Results * CT Outside images for PACS (10/22/2019 3:22 PM OPTOMETRIC TECHNICIAN) Specimen Performing Organization Address City/State/Zipcode Ph one Number [place] documented in this encounter Visit Diagnoses Diagnosis Encounter for consultation documented in this encounter
--- OUTSIDE RECORDS SUMMARY | 2019-12-17 23:23 | XMS REPORT | Encounter Summary ---
Author Author [facility] Organization [facility] Address Unknown Phone Unavailable Care Team Providers Care Clinical Data Management Director Name Role Phone Reji Jacob PCP Encounter Details Care Team Description Date Type Department Korin Rehman RN 2019 Telephone [facility] [address] [facility] [address] [place] [address] Social History Date Tobacco Use Types Packs/Day [...] Korin Rehman RN - 2019 8:26 AM SENIOR WEB ARCHITECT Received a VM regarding an upcoming CTS appointment he has scheduled. He wanted to find out the name of the provider. LMTCB OR WEB ARCHITECT documented in this encounter Plan of Treatment Not on filedocumented as of this encounter Visit Diagnoses Not on filedocumented in this encounter
--- OUTSIDE RECORDS SUMMARY | 2019-12-17 23:23 | XMS REPORT | Encounter Summary ---
Author Author [facility] Organization [facility] Address Unknown Phone Unavailable Care Team Providers Care Qualification Engineer Name Role Phone Reji Jacob PCP Encounter Details Care Team Description Date Type Department Encounter for consultation 10/22/2019 Imaging [facility] Virtual Revenu e [...] 10/22/2019 Encounte r for PACS 3:21 PM CREDIT CARD CONTROL CLERK consultation documented in this encounter Results * US Outside images for PACS (10/22/2019 3:21 PM CREDIT CARD CONTROL CLERK) Specimen Performing Organization Address City/State/Zipcode Ph one Number [place] documented in this encounter Visit Diagnoses Diagnosis Encounter for consultation documented in this encounter
--- OUTSIDE RECORDS SUMMARY | 2019-12-17 23:23 | XMS REPORT | Encounter Summary ---
Author Author [facility] Organization [facility] Address Unknown Phone Unavailable Care Team Providers Care Dragger Out Name Role Phone Reji Jacob PCP Reason for Visit * Reason Comments Correspondence Encounter Details Care Team Description Date Type Department Joe Harris, RODNEY Correspondence 10/22/2019 Telephone [facility] [address] [place] [address] Social History Date Tobacco Use Types Packs/Day [...] Savita Reyna RN - 10/23/2019 9:32 AM INSULATION TECHNICIAN 10/23 call to [facility], spoke with Marsha and she stated that patient was still there and she would speak with Dr Li and call back, Informed her that I left a message for Jazz Becerril about it being approved. LATION TECHNICIAN * Telephone Encounter - Savita Reyna RN - 10/23/2019 9:28 AM INSULATION TECHNICIAN 10/23 message left for Jazz Becerril physical therapy manager for CV imaging scheduling to see if melissa ey have reached out to patient LATION TECHNICIAN * Telephone Encounter - Korin Rehman RN - 10/22/2019 4:04 PM INSULATION TECHNICIAN Zain to patient. Explained that pt will need to have a gated CV CT tomorrow. Pt gave the following info about his insurance. [employer] # [id number] [facility] Provider services Emailed info to CV Imaging and [employer] so that the CT can be preauthed. Instructed pt that he should be expecting further calls from our office so that he can be looking out for our call. VU. LATION TECHNICIAN * Telephone Encounter - Joe Harris RN - 10/22/2019 3:12 PM INSULATION TECHNICIAN Attempted call to patient again, no answer, VM full. LATION TECHNICIAN * Telephone Encounter - Joe Harris RN - 10/22/2019 2:44 PM INSULATION TECHNICIAN Received VM from patient stating he was returning call and to call back. Remy figueroa call to patient, no answer and VM full. Spoke with Marsha. She reports he d oes have [employer], she is awaiting correspondence from him with his member ID . Attempted call to patient again, no answer, VM full. LATION TECHNICIAN * Telephone Encounter - Joe Harris RN - 10/22/2019 1:40 PM INSULATION TECHNICIAN Received call from Marsha with CTS/Dr. Li's office ([facility]) to discuss appointment scheduled tomorrow. She does not have imaging of ec ho/cath report from 2019 and CTA from 2018. She will reach out to [facility] for vy ges but may need [...] back. Discussed with Dr. Medina. He e-mailed [facility] staff who were able to upload [...] Made call to emergency contact listed on [facility], was able to leave brief message that we are needing to reach patient today a nd for someone to call back. E-mail sent to all parties involved. Checked cloud, only see echo and cath, email sent to [facility] staff. LATION TECHNICIAN documented in this encounter Plan of Treatment Not on filedocumented as of this encounter Visit Diagnoses Not on filedocumented in this encounter
--- OUTSIDE RECORDS SUMMARY | 2019-12-17 23:23 | XMS REPORT | Encounter Summary ---
Author Author [facility] Organization [facility] Address Unknown Phone Unavailable Care Team Providers Care Supervisor Logging Name Role Phone Reji Jacob PCP Encounter Details Care Team Description Date Type Department Encounter for consultation 10/24/2019 Imaging [facility] Virtual Revenu e Appointment Location Social [...] 10/24/2019 Encounte r for PACS 8:00 AM CHOIR ACCOMPANIST consultation documented in this encounter Results * CT Outside images for PACS (10/24/2019 8:00 AM CHOIR ACCOMPANIST) Specimen Performing Organization Address City/State/Zipcode Ph one Number [place] documented in this encounter Visit Diagnoses Diagnosis Encounter for consultation documented in this encounter
--- OUTSIDE RECORDS SUMMARY | 2019-12-17 23:23 | XMS REPORT | Encounter Summary ---
Author Author [facility] Organization [facility] Address Unknown Phone Unavailable Care Team Providers Care Regional Climate Change Analyst Name Role Phone Reji Jacob PCP Encounter [...] 10/24/2019 Encounte r for PACS 8:15 AM DAIRY TRUCK DRIVER consultation documented in this encounter Results * CT Outside images for PACS (10/24/2019 8:15 AM DAIRY TRUCK DRIVER) Specimen Performing Organization Address City/State/Zipcode Ph one Number [place] documented in this encounter Visit Diagnoses Diagnosis Encounter for consultation documented in this encounter
--- OUTSIDE RECORDS SUMMARY | 2019-12-17 23:23 | XMS REPORT | Encounter Summary ---
Author Author [facility] Organization [facility] Address Unknown Phone Unavailable Care Team Providers Care Wire Frame Lampshade Maker Name Role Phone Reji Jacob PCP Encounter Details Care Team Description Date Type Department Encounter for consultation 10/22/2019 Imaging [facility] Virtual Revenu e Appointment Location [...] 10/22/2019 Encounte r for PACS 3:23 PM ROCK SINGER consultation documented in this encounter Results * IR Outside images for PACS (10/22/2019 3:23 PM ROCK SINGER) Specimen Performing Organization Address City/State/Zipcode Ph one Number [place] documented in this encounter Visit Diagnoses Diagnosis Encounter for consultation documented in this encounter
--- OUTSIDE RECORDS SUMMARY | 2019-12-17 23:24 | XMS REPORT | Encounter Summary ---
Author Author [facility] Organization [facility] Address Unknown Phone Unavailable Care Team Providers Care Mercury Washer Name Role Phone PCP Unavailable Encounter Details Care Team Description Date Type Department Sindy John RN 08/26/2019 Abstract [facility] [address] [place] [address] Social History Date Tobacco Use Types Packs/Day [...] car otid artery stenosis. Antegrade vertebral flow. ([facility]) * CV US Lower Extremity Arterial Duplex Outside Record (07/17/2019) Impressions Performed At Right: No evidence of active arterial bleed, or obstruction in common femoral artery. No evidence of deep shane ous thrombosis in the common femoral vein. ([facility]) * Coronary Angiogram Outside Record [...] hypertension. See report abo ve for details. ([facility]) * Basic Metabolic Panel (07/10/2019) [facility] Signature Calcium 9.7 8.7 - 10.7 [...] n ow estimated to be 5.0 cm. [facility] * XR Outside Record (07/31/2018) Impressions Performed At Negative for acute infiltrate. [facility]) * CT Outside Record (05/22/2018) Impressions Performed At 1. 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 No other aneurysm. No dissection or atheromatous disease. 2. Small calcifications of the aortic valve. 3. Otherwise, normal study. ([facility] * Coronary Angiogram Outside Record (05/21/2018) Impressions [...] discussed above. 4. See report for details. ([employer]) * Echo Outside Record (05/21/2018) Ejection Fraction [...] aorta about 44 mm in diameter . ([facility]) documented in this encounter Visit Diagnoses Diagnosis SVT (supraventricular tachycardia) (HCC ) Other specified cardiac dysrhythmias Morbid obesity (HCC) Morbid obesity Bicuspid aortic valve Congenital insufficiency of aortic valv e Ascending aorta dilatation (HCC) Thoracic aneurysm without mention of ru pture Anxiety Anxiety state, unspecified documented in this encounter
--- OUTSIDE RECORDS SUMMARY | 2019-12-17 23:24 | XMS REPORT | Encounter Summary ---
Author Author [facility] Organization [facility] Address Unknown Phone Unavailable Care Team Providers Care Dental Practice Manager Name Role Phone PCP Unavailable Encounter Details Care Team Description Date Type Department Tone Medina MD [address] [place] [address] [phone] 08/27/2019 Orders Only [facility] [address] [place] [address] Social History Date Tobacco Use Types Packs/Day [...]
--- OUTSIDE RECORDS SUMMARY | 2019-12-17 23:24 | XMS REPORT | Encounter Summary ---
Author Author [facility] Organization [facility] Address Unknown Phone Unavailable Care Team Providers Care Direct Service Provider Name Role Phone PCP Unavailable Encounter Details Care Team Description Date Type Department Tone Medina MD [address] [place] [address] [phone] 08/19/2019 Documentation [facility] [address] [place] [address] Social History Date Tobacco Use Types Packs/Day [...]
--- OUTSIDE RECORDS SUMMARY | 2019-12-17 23:26 | XMS REPORT | Continuity of Care Document ---
Author Organization Unknown Address Unknown Phone Unavailable Allergies Active Description Code Type Severity Reaction Onset Reported/Identified Relationship to Patient Clinical Status Yes No Known Drug Allergies [id number] Drug Allergy Mild N/A 01/01/2019 Medications There [...] PALPITATIONS 01/02/2019 Yessi MEDEROS MD Ot Z79.82 FDC (CURRENT) USE OF ASPIRIN 01/02/2019 Yessi MEDEROS MD, Ot Z79.899 OTHER AIR CONDITIONING UNIT TESTER (CURRENT) DRUG THERAPY 01/02/2019 KERVIN MUNOZ MD [...] NICOTINE DEPENDENCE, CIGARETTES, UNCOMPL 01/03/2019 CARRIE BADILLO, SADNRITA Dickson Ot G43.909 MIGRAINE, UNSP, NOT INTRACTABLE, WITHOUT 01/03/2019 CARRIE BADILLO, SANDRITA Dickson Ot R51 HEADACHE 01/03/2019 CARRIE BADILLO, SANDRITA Dickson Ot Z82.49 FAMILY HX OF ISCHEM HEART DIS AND OTH DI 01/03/2019 CARRIE BADILLO, SANDRITA Dickson Ot Z86.69 PERSONAL HISTORY OF DIS OF THE NERVOUS S 01/03/2019 KERVIN MUNOZ MD J Ot E78. 00 PURE HYPERCHOLESTEROLEMIA, UNSPECIFIED 01/03/2019 TAMMY ABDILLO, KERVIN J Ot F17.210 NICOTINE DEPENDENCE, CIGARETTES, [...] 01/06/2019 GATITO BADILLO, Yessi BURTON Ot Z79.82 FDC (CURRENT) USE OF ASPIRIN 01/06/2019 GATITO BADILLO, Yessi BURTON Ot Z79.899 OTHER AIR CONDITIONING UNIT TESTER (CURRENT) DRUG THERAPY 04/30/2019 MIKEL CASTLE MD [...] I35 .8 OTHER NONRHEUMATIC AORTIC VALVE DISORDER 11/18/2019 MAJOR CORRALES MD Ot E78. 00 PURE HYPERCHOLESTEROLEMIA, UNSPECIFIED 11/18/2019 MAJOR CORRALES MD Ot F17.210 NICOTINE DEPENDENCE, CIGARETTES, UNCOMPL 11/18/2019 MAJOR CORRALES MD Ot G43.909 MIGRAINE, UNSP, NOT INTRACTABLE, WITHOUT 11/18/2019 MAJOR CORRALES MD J Ot G89. 29 OTHER CHRONIC PAIN 11/18/2019 MAJOR CORRALES MD Ot I48. 91 UNSPECIFIED ATRIAL FIBRILLATION 11/18/2019 MAJOR CORRALES MD Ot I71. 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 9 GASTRO-ESOPHAGEAL REFLUX DISEASE WITHOUT 11/18/2019 MAJOR CORRALES MD Ot M54. 9 DORSALGIA, UNSPECIFIED 11/18/2019 MAJOR CORRALES MD Ot Q23. 1 CONGENITAL INSUFFICIENCY OF AORTIC VALVE 11/18/2019 MAJOR CORRALES MD Ot R07. 1 CHEST PAIN ON BREATHING 11/18/2019 MAJOR CORRALES MD J Ot Z79.899 OTHER AIR CONDITIONING UNIT TESTER (CURRENT) DRUG THERAPY 11/18/2019 MAJOR CORRALES MD Ot E78. 00 PURE HYPERCHOLESTEROLEMIA, UNSPECIFIED 11/18/2019 MAJOR CORRALES MD Ot F17.210 NICOTINE DEPENDENCE, CIGARETTES, UNCOMPL 11/18/2019 MAJOR CORRALES MD Ot G43.909 MIGRAINE, UNSP, NOT INTRACTABLE, WITHOUT 11/18/2019 MAJOR CORRALES MD Ot G89. 29 OTHER CHRONIC PAIN 11/18/2019 MAJOR CORRALES MD Ot I48. 91 UNSPECIFIED ATRIAL FIBRILLATION 11/18/2019 MAJOR CORRALES MD Ot I71. 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 9 GASTRO-ESOPHAGEAL REFLUX DISEASE WITHOUT 11/18/2019 MAJOR CORRALES MD Ot M54. 9 DORSALGIA, UNSPECIFIED 11/18/2019 MAJOR CORRALES MD Ot Q23. 1 CONGENITAL INSUFFICIENCY OF AORTIC VALVE 11/18/2019 MAJOR CORRALES MD Ot R07. 1 CHEST PAIN ON BREATHING 11/18/2019 MAJOR CORRALES MD Ot Z79.899 OTHER FDC (CURRENT) DRUG THERAPY 11/28/2019 Yessi MEDEROS MD, Ot F17.210 NICOTINE DEPENDENCE, CIGARETTES, UNCOMPL 11/28/2019 Yessi MEDEROS MD, Ot I35 .0 NONRHEUMATIC AORTIC (VALVE) STENOSIS 11/28/2019 Yessi MEDEROS MD, Ot I71 .2 THORACIC AORTIC ANEURYSM, 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 11/28/2019 Yessi MEDEROS MD, Ot Z11 .2 ENCOUNTER FOR SCREENING FOR OTHER BACTER 11/28/2019 Yessi MEDEROS MD, Ot Z79.899 OTHER AIR CONDITIONING UNIT TESTER (CURRENT) DRUG THERAPY Procedures There is no data. Results Test [...] VLDL measurement (mass/ volume) 38 mg/dL 5-40 Automated blood complete blood count ( mogram) panel - 11/27/19 07:35 Blood leukocytes automated count (number/volume) 8.3 10*3/uL 4.3-11.0 Blood erythrocytes automated count (number/volume) 5.37 10*6/uL 4.35-5.85 Venous blood hemoglobin measurement (mass/volume) 15.6 g/dL 13.3-17.7 Blood hematocrit (volume fraction) 44 % 40-54 Automated erythrocyte mean corpuscular volume 81 [ foz_us] 80-99 Automated erythrocyte mean corpuscular h emoglobin (mass per erythrocyte) 29 pg 25-34 Automated erythrocyte mean corpuscular h emoglobin concentration measurement (mass/volume) 36 g/dL 32-36 Automated erythrocyte distribution width ratio 13. 0 % 10.0- 14.5 Automated blood platelet count (count/volume) 196 10*3/uL 130-400 Automated blood platelet mean volume measurement 10.1 [foz_us] 7.4-10.4 PT panel in platelet poor plasma by coag ulation assay - 11/27/19 07:35 Prothrombin time (PT) in platelet poor plasma by coagu lation assay 12.0 s 12.2-14.7 INR in platelet poor plasma or blood by coagulation as say 0.9 0.8-1.4 Activated partial thromboplastin time (a PTT) in platelet poor plasma bycoagulation assay - 11/27/19 07:35 Activated partial thromboplastin time (a PTT) in platelet poor plasma bycoagulation assay 29 s 24-35 Comprehensive metabolic panel - 11/27/19 07:35 Serum or plasma sodium measurement (moles/volume) 141 mmol/L 135-145 Serum or plasma potassium measurement (moles/volume) 4.1 mmol/L 3.6-5.0 Serum or plasma chloride measurement (moles/volume) 105 mmol/L 98-107 Carbon dioxide 25 mmol/L 21-32 Serum or plasma anion gap determination (moles/volume) 11 mmol/L 5-14 Serum or plasma urea nitrogen measurement (mass/volume ) 13 mg/dL 7-18 Serum or plasma creatinine measurement (mass/volume) 0.90 mg/dL 0.60-1.30 Serum or plasma urea nitrogen/creatinine mass ratio 14 NRG Serum or plasma creatinine measurement w ith calculation of estimated glomerular filtration rate > NRG Serum or plasma glucose measurement (mass/volume) 104 mg/dL 70-105 Serum or plasma calcium measurement (mass/volume) 9.0 mg/dL 8.5-10.1 Serum or plasma total bilirubin measurement (mass/volu me) 0.3 mg/dL 0.1-1.0 Serum or plasma alkaline phosphatase rojelio surement (enzymatic activity/volume) 59 U/L 40-136 Serum or plasma aspartate aminotransfera se measurement (enzymatic activity/volume) 21 U/L 5-34 Serum or plasma alanine aminotransferase measurement (enzymatic activity/volume) 25 U/L 0-55 Serum or plasma protein measurement (mass/volume) 6.9 g/dL 6.4-8.2 Serum or plasma albumin measurement (mass/volume) 4.2 g/dL 3.2-4.5 CALCIUM CORRECTED 8.8 mg/dL 8.5-10.1 Lipid 1996 panel - 11/27/19 07:35 Serum or plasma triglyceride measurement (mass/volume) 208 mg/dL <150 Serum or plasma cholesterol measurement (mass/volume) 174 mg/dL < 200 Serum or plasma cholesterol in HDL measurement (mass/v olume) 33 mg/dL 40-60 Cholesterol in LDL [mass/volume] in serum or plasma by direct assay 125 mg/dL 1-129 Serum or plasma cholesterol in VLDL measurement (mass/ volume) 42 mg/dL 5-40 Methicillin resistant Staphylococcus aur eus (MRSA) screening culture - 11/27/19 07:35 Methicillin resistant Staphylococcus aureus (MRSA) scr eening culture NEG NRG Encounters ACCT No. Visit Date/Time Discharge Status Pt. Type Provider Facility Loc./Unit Complaint [id number] 10/22/2019 13:00:00 10/22/2019 23:59:5 9 [facility] Outpatient YESSENIA HARDING [facility] DENTAL [id number] 11/20/2018 13:15:00 Document Registration [id number] 11/27/2019 07:12:00 14:55:00 DIS Outpatient Yessi MEDEROS MD [facility] CATH CHEST PAIN [id number] 11/17/2019 21:10:00 10:15:00 DIS Inpatient MAJOR CORRALES MD [facility] ICU CHEST PAIN,INTERMITTENT JUNCTIONAL RHYTHM,AORTIC A [id number] 08/16/2019 17:37:00 19:43:00 DIS Emergency DANISH PARKER MD [facility] ER FS NECK/SHOULDER PAIN [id number] 07/12/2019 16:25:00 20:01:00 DIS Emergency HINA JORGE MD [facility] ER FS JAW PAIN [id number] 05/24/2019 19:18:00 21:52:00 DIS Emergency HINA JORGE MD [facility] ER FS CHEST PAIN [id number] 04/30/2019 13:21:00 17:20:00 DIS Emergency MIKEL CASTLE MD [facility] ER CHEST PAIN [id number] 01/06/2019 15:30:00 23:59:59 CLS Preadmit Yessi MEDEROS MD [facility] CARD PALPITATION [id number] 10/31/2018 12:17:00 00:01:00 DIS Outpatient Yessi MEDEROS MD [facility] CARD PALPITATION [id number] 01/02/2019 12:28:00 14:05:00 DIS Emergency KERVIN MUNOZ MD [facility] ER FELT "POP" IN CHEST [id number] 01/02/2019 08:22:00 10:23:00 DIS Outpatient Yessi MEDEROS MD [facility] CATH PALPITATIONS,PSVT [id number] 01/01/2019 07:28:00 12:00:00 DIS Emergency KERVIN MUNOZ MD [facility] ER LT SHOULDER INJ [id number] 11/06/2018 05:23:00 06:35:00 DIS Emergency SANDRITA BUTLER MD [facility] ER FS MIGRAINE [id number] 10/06/2018 18:02:00 14:19:00 DIS Inpatient SADIE BADILLO FACC, SHEFALI FACP CCD S [facility] ICU SVT,CHEST PAIN [id number] 11/09/2017 10:00:00 23:59:59 CLS Preadmit Yessi MEDEROS MD [facility] CARD CARDIAC MURMUR [id number] 06/22/2017 13:00:00 017 23:59:59 CLS Preadmit Yessi MEDEROS MD [facility] CARD AORTIC STENOSIS,CARDIAC MURMUR,OBESITY,TOBACCO USE [id number] 10/19/2016 10:02:00 017 23:59:59 CLS Outpatient MAGUI URIBE MD [facility] CARD HEART MURMUR,AORTIC [id number] 12/17/2019 23:15:[address] Emergency KARINA BABCOCK DO [facility] ER FS CHEST PAIN
[2019-12-17] MEDS ORDERED: WARF1TAB82 (23:27)
[2019-12-17] MEDS ORDERED: GABA-488 (23:27)
[2019-12-17] MEDS ORDERED: WARF10TA44 (23:27)
[2019-12-17] MEDS ORDERED: OXYC5TAB96 (23:27)
[2019-12-17] MEDS ORDERED: LIDO700A45 (23:27)
--- NOTE | 2019-12-17 23:58 | ED Chest Pain ---
General Chief Complaint: Chest Wall Stated Complaint: CHEST PAIN Nursing Triage Note: pt states he had a heart valve replaced on the 30 of november, woke up this afternoon around 1500 with chest pain to left side of chest, pain increases with deep inspiration, pt also c/o soa while being supine Nursing Sepsis Screen: No Definite Risk Source: patient Exam Limitations: no limitations History of Present Illness Date Seen by Provider: Dec 17, 2019 Time Seen by Provider: 23:20 Initial Comments 34-year-old male presents to the emergency room with chest pain left side of the chest since 1500 today. Patient states the pain increases with deep inspiration he also has shortness of air. His pulse ox was 98 on room air. Patient had a bicuspid valve replacement on November 30 in [facility] because of congenital heart disease. He states his heart valve was one third the size is normal. Patient states he was doing well until today. He had no trauma no prior chest pain or shortness of breath. Patient has a chest binder on the anterior chest wall he can remove for showering without difficulty. Patient has given informed consent for diagnostic and therapeutic services. EKG done at the time of admission reveals a sinus tachycardia of 107 with low voltage and a borderline prolonged QT interval with a QTC of 477. Timing/Duration: 4-6 hours Severity/Quality: moderate, pressure, tightness Location: substernal (and left-sided) Radiation: no radiation Activities at Onset: none (woke up from rest with left-sided chest discomfort) Prior CP/Workup: other (valve replacement on November 30 secondary to congenital valve disease) Modifying Factors: improves with lying down, improves with rest (woke up at 1500 with chest pain) ASA po JUMPBASTING MACHINE OPERATOR: No NTG SL JUMPBASTING MACHINE OPERATOR: No Associated Symptoms: shortness of breath, weakness (with left-sided chest pain.) Allergies and Home Medications Allergies Coded Allergies: No Known Drug Allergies (Unverified , 01/01/19) Home Medications Acetaminophen 325 Mg Tablet, 325 MG PO PRN, (Reported) Metoprolol Succinate 100 Mg Tab.er.24h, 100 MG PO DAILY Prescribed by: ALEXUS MAHMOOD on 10/07/18 1431 Patient Home Medication List Home Medication List Reviewed: Yes Review of Systems Review of Systems Constitutional: weakness (an left-sided chest pain since 1500 today) EENTM: No Symptoms Reported Respiratory: SOA With Exertion, SOA at Rest (at 1500 however patient continues to have a pulse ox of 98 on room air) Cardiovascular: See HPI, Chest Pain (left-sided chest with valve replacement 2 weeks ago), Irregular Heart Rate (history of irregular heartbeat but has sinus tachycardia regular rate and rhythm 107 on EKG) Gastrointestinal: No Symptoms Reported Genitourinary: No Symptoms Reported Musculoskeletal: see HPI, muscle pain (left anterior chest wall), muscle stiffness (left anterior chest wall) Skin: no symptoms reported (healing surgical site) Psychiatric/Neurological: Anxiety Endocrine: No Symptoms Reported Hematologic/Lymphatic: No Symptoms Reported Past Gorhhvl-Ynybwk-Sxleqy Hx Past Med/Social Hx: Reviewed Nursing Past Med/Soc Hx Patient Social History Alcohol Use: Denies Use Recreational Drug Use: Yes Drug of Choice: marijuana Smoking Status: Current Everyday Smoker Type Used: Cigarettes 2nd Hand Smoke Exposure: No Recent Foreign Travel: No Contact w/Someone Who Travel: No Recent Infectious Disease Expo: No Recent Hopitalizations: Yes Physical Abuse: No Sexual Abuse: No Mistreated: No Fear: No Immunizations Up To Date Tetanus Booster (TDap): Less than 5yrs Date of Influenza Vaccine: Jun 03, 2019 Seasonal Allergies Seasonal Allergies: No Past Medical History Surgeries: Yes (ablation-svt/a-fib, LOOP RECORDER 01/02/19) Cardiac, Tonsillectomy Respiratory: No Cardiac: Yes (ascending aortic aneurysm, bicuspid valve dysfunction, V-tach) Aneurysm, Atrial Fibrillation, Heart Murmur, High Cholesterol, Irregular Heartbeat, Palpitations Neurological: Yes Headaches /Migraines Genitourinary: No Gastrointestinal: No Musculoskeletal: Yes Chronic Back Pain Endocrine: No HEENT: No Cancer: No Psychosocial: No Integumentary: No Blood Disorders: No Adverse Reaction/Blood Tranf: No Family Medical History Hypertension Physical Exam Vital Signs Vital Signs - First Documented 12/17/19 23:27 Temp 35.8 Pulse 102 Resp 18 B/P (MAP) 124/79 (94) O2 Delivery Room Air Capillary Refill : Less Than 3 Seconds Height, Weight, BMI Height: 5'11.00" Weight: 308lbs. 0.0oz. 139.031263dh; 42.00 BMI Method:Stated General Appearance: WD/WN, Anxious, Moderate Distress (secondary to left anterior chest wall and valve replacement 2 weeks ago) HEENT: PERRL/EOMI, Normal ENT Inspection, Pharynx Normal, Moist Mucous Membranes Neck: Full Range of Motion, Normal Inspection, Non Tender, Supple Respiratory: Lungs Clear, Normal Breath Sounds, No Accessory Muscle Use, No Respiratory Distress, Other (left-sided chest discomfort and tenderness) Cardiovascular: Regular Rate, Rhythm, No Edema, No Gallop, No JVD, No Murmur, Tachycardia (rate 107) Gastrointestinal: Normal Bowel Sounds, No Organomegaly, No Pulsatile Mass, Non Tender, Soft, Other (obese) Extremity: Normal Capillary Refill, Normal Inspection, Normal Range of Motion, Non Tender, No Calf Tenderness Neurologic/Psychiatric: Alert, Oriented x3, No Motor/Sensory Deficits, Normal Mood/Affect, tree deadener II-XII Norm as Tested (patient denies any exposure to coronavirus patients), Other (I levels of anxiety) Skin: Normal Color, Warm/Dry Lymphatic: No Adenopathy Progress/Results/Core Measures Results/Orders Lab Results Laboratory Tests Test 12/17/19 23:31 12/17/19 23:55 12/18/19 02:05 Range/Units White Blood Count 6.7 4.3-11.0 10^3/uL Red Blood Count 3.75 L 4.35-5.85 10^6/uL Hemoglobin 10.5 L 13.3-17.7 G/DL Hematocrit 31 L 40-54 % Mean Corpuscular Volume 82 80-99 FL Mean Corpuscular Hemoglobin 28 25-34 PG Mean Corpuscular Hemoglobin Concent 34 32-36 G/DL Red Cell Distribution Width 12.6 10.0-14.5 % Platelet Count 309 130-400 10^3/uL Mean Platelet Volume 9.6 7.4-10.4 FL Neutrophils (%) (Auto) 75 42-75 % Lymphocytes (%) (Auto) 14 12-44 % Monocytes (%) (Auto) 8 0-12 % Eosinophils (%) (Auto) 2 0-10 % Basophils (%) (Auto) 1 0-10 % Neutrophils # (Auto) 5.0 1.8-7.8 X 10^3 Lymphocytes # (Auto) 0.9 L 1.0-4.0 X 10^3 Monocytes # (Auto) 0.6 0.0-1.0 X 10^3 Eosinophils # (Auto) 0.1 0.0-0.3 10^3/uL Basophils # (Auto) 0.0 0.0-0.1 10^3/uL Prothrombin Time 23.5 H 12.2-14.7 SEC INR Comment 2.0 H 0.8-1.4 Activated Partial Thromboplast Time 50 H 24-35 SEC Sodium Level 136 135-145 MMOL/L Potassium Level 4.0 3.6-5.0 MMOL/L Chloride Level 101 98-107 MMOL/L Carbon Dioxide Level 23 21-32 MMOL/L Anion Gap 12 5-14 MMOL/L Blood Urea Nitrogen 9 7-18 MG/DL Creatinine 0.86 0.60-1.30 MG/DL Estimat Glomerular Filtration Rate > 60 BUN/Creatinine Ratio 10 Glucose Level 114 H 70-105 MG/DL Calcium Level 8.9 8.5-10.1 MG/DL Corrected Calcium 9.1 8.5-10.1 MG/DL Magnesium Level 1.9 1.6-2.4 MG/DL Total Bilirubin 0.5 0.1-1.0 MG/DL Aspartate Amino Transf (AST/SGOT) 16 5-34 U/L Alanine Aminotransferase (ALT/SGPT) 20 0-55 U/L Alkaline Phosphatase 78 40-136 U/L Myoglobin < 21.0 10.0-92.0 NG/ML Troponin I < 0.30 < 0.30 <0.30 NG/ML Total Protein 6.5 6.4-8.2 GM/DL Albumin 3.8 3.2-4.5 GM/DL Group A Streptococcus Screen NEGATIVE NEGATIVE Micro Results Microbiology 12/17/19 Influenza Types A,B Antigen (JEFF) - Final, Complete My Orders Orders - KARINA BABCOCK DO Ekg Tracing (12/17/19 23:43) Cbc With Automated Diff (12/17/19 23:43) Magnesium (12/17/19 23:43) Chest 1 View Ap/Pa Only (12/17/19 23:43) Comprehensive Metabolic Panel (12/17/19 23:43) Myoglobin Serum (12/17/19 23:43) Protime With Inr (12/17/19 23:43) Partial Thromboplastin Time (12/17/19 23:43) Troponin I Fs (12/17/19 23:43) Influenza A And B Antigens (12/17/19 23:43) Rapid Strep A Screen (12/17/19 23:43) Troponin I Fs (12/18/19 01:32) Vital Signs/I&O 12/17/19 12/17/19 23:27 23:27 Temp 35.8 Pulse 102 Resp 18 B/P (MAP) 124/79 (94) O2 Delivery Room Air Room Air Blood Pressure Mean: 94 Progress Progress Note : Progress Note EKG shows heart rate of 107 sinus tachycardia low voltage borderline prolonged QT interval of [address]-T wave changes. Patient has high levels of anx iety. Progress note. Laboratory evaluation reveals a mild anemia with hemoglobin at 10.5 INR 2.0 glucose of 114 troponin less than 0.3 strep rapid strep was negative influenza A and B negative. Chest x-ray shows cardiomegaly with sternal wall repair with wire sutures. Do not believe the patient's having a cardiac event but may have a pleurisy secondary to surgery. Cannot see if the patient has a mild effusion in the left gutter. Recommended for the patient to follow up with his cardiovascular team at his primary care provider later this week or early next week. I do not see any evidence of ischemic heart disease. Patient appears to be very anxious and kept asking if he had pneumonia and likely he not have more oxygen. Patient was on room air had a pulse ox of 97 when he was asking the questions. He also thought he had a collapsed lung but there is no evidence of such on the chest x-ray. Initial ECG Impression Date: Dec 18, 2019 Initial ECG Impression Time: 23:17 Initial ECG Rate: 107 Initial ECG Rhythm: S.Tach Initial ECG Intervals: Normal Initial ECG Impression: Normal Departure Impression Primary Impression: Chest wall pain Additional Impression: History of bicuspid cardiac valve Disposition: HOME, SELF-CARE Condition: Improved Departure-Patient Inst. Decision time for Depature: 02:43 Referrals: [facility]/JENNIFER (PCP) Primary Care Physician YESSENIA HARDING APRN (Family) Primary Care Physician Patient Instructions: Chest Pain (DC) Add. Discharge Instructions: 34-year-old patient with chest pain for the past day admits that he had a bicuspid valve replacement on November 30 in [facility]. Patient has had positive recovery but stated he had some chest discomfort today troponin 2 have been negative EKG shows a mild tachycardia with no other abnormalities. Chest x- ray shows a congenital heart with slight cardiomegaly but no signs of infection and no pneumothorax. 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 Obviously if the patient has severe chest pain shortness of breath he should return however his pulse ox was 97 and 98 on room air the entire time he was in the emergency room. All discharge instructions reviewed with patient and/or family. Voiced understanding. Copy Copies To 1: [facility]/KARINA MUNROE DO Dec 17, 2019 23:58
[2019-12-18 00:05] LABS: BASOPHILS % (AUTO) 1 % (0-10); EOSINOPHILS # (AUTO) 0.1 10^3/uL (0.0-0.3); EOSINOPHILS % (AUTO) 2 % (0-10); HEMATOCRIT 31 % (40-54); HEMOGLOBIN 10.5 G/DL (13.3-17.7); LYMPHOCYTES # (AUTO) 0.9 X 10^3 (1.0-4.0); LYMPHOCYTES % (AUTO) 14 % (12-44); MEAN CORPUSCULAR HEMOGLOBIN 28 PG (25-34); MEAN CORPUSCULAR HGB CONC 34 G/DL (32-36); MEAN CORPUSCULAR VOLUME 82 FL (80-99); MEAN PLATELET VOLUME 9.6 FL (7.4-10.4); MONOCYTES # (AUTO) 0.6 X 10^3 (0.0-1.0); MONOCYTES % (AUTO) 8 % (0-12); NEUTROPHILS % (AUTO) 75 % (42-75); PLATELET COUNT 309 10^3/uL (130-400); RED CELL DISTRIBUTION WIDTH 12.6 % (10.0-14.5); WHITE BLOOD COUNT 6.7 10^3/uL (4.3-11.0)
[2019-12-18 00:06] LABS: PROTHROMBIN TIME PATIENT 23.5 SEC (12.2-14.7)
[2019-12-18 00:14] LABS: BUN/CREATININE RATIO 10; CALCIUM 8.9 MG/DL (8.5-10.1); CARBON DIOXIDE 23 MMOL/L (21-32); CHLORIDE 101 MMOL/L (98-107); CREATININE SERUM 0.86 MG/DL (0.60-1.30); GFR ESTIMATED > 60; GLUCOSE 114 MG/DL (70-105); SODIUM 136 MMOL/L (135-145)
[2019-12-18 00:15] LABS: ALANINE AMINOTRANSFERASE 20 U/L (0-55); ALBUMIN 3.8 GM/DL (3.2-4.5); ALKALINE PHOSPHATASE 78 U/L (40-136); BILIRUBIN,TOTAL 0.5 MG/DL (0.1-1.0); MAGNESIUM 1.9 MG/DL (1.6-2.4); TOTAL PROTEIN 6.5 GM/DL (6.4-8.2)
[2019-12-18 02:47] VITALS: BP 108/65
--- NOTE | 2019-12-18 07:00 | Diagnostic Imaging Report ---
INDICATION: Chest pain Portable AP view of the chest is obtained with comparison made to study of 11/17/2019. There has been interval median sternotomy and cardiac valve replacement. There is mild elevation of the left hemidiaphragm. Left perihilar atelectasis is noted. There is no evidence of pneumothorax or consolidation. IMPRESSION: Cardiomegaly without evidence of venous congestion or overt edema. There is mild elevation of left hemidiaphragm with left perihilar atelectasis. Dictated by: Dictated on workstation # [id number]
== END 2019-12-18 02:47 | disposition home or self-care (01) ==
LOC: EDUNIT# 23:10 → ER FS 23:15
DX: R07.89 Other chest pain (principal); F17.210 Nicotine dependence, cigarettes, uncomplicated; I48.91 Unspecified atrial fibrillation; E78.00 Pure hypercholesterolemia, unspecified; M54.9 Dorsalgia, unspecified; G89.29 Other chronic pain; I51.7 Cardiomegaly; J98.11 Atelectasis; Z95.2 Presence of prosthetic heart valve
CPT/HCPCS: 36415; 71045; 80053; 83735; 83874; 84484; 85025; 85610; 85730; 87430; 87804; 93005

== ENCOUNTER 2019-12-21 20:00 | Inpatient (IN) | payer BC ==
[~2019-12-21] VITALS: Ht 177.9 cm; Wt 123.0 kg
[~2019-12-21 20:00] MED LIST changes: +GABA-488 PO; +LIDO700A45; +OXYC5TAB96 PO; +WARF10TA44 PO; +WARF1TAB82
--- OUTSIDE RECORDS SUMMARY | 2019-12-21 20:07 | XMS REPORT | Encounter Summary ---
Author Author [facility] Organization [facility] Address Unknown Phone Unavailable Care Team Providers Care Blend Plant Operator Name Role Phone AmadouNichol PCP Encounter Details Care Team Description Date Type Department Scanning, Interface 12/17/2019 Documentation [facility] [address] [place] [address] Social History Date Tobacco Use Types Packs/Day [...]
--- OUTSIDE RECORDS SUMMARY | 2019-12-21 20:07 | XMS REPORT | Clinical Summary ---
Author Author [facility] Organization [facility] Address Unknown Phone Unavailable Care Team Providers Care J2Ee Java Developer Name Role Phone Nichol Tobar PCP Allergies [...] unspecified type; Severe obesity (BMI >= 40) ([facility]) 12/01/2019 Hospital Cardiothoracic Surg ronnie - Encounter [...] Type Area Manufactur er 06/23/2024 [id number] / [id number] / Implant Valve Aortic [place] Flex Tissue N/A: Heart [facility] 25mm [id number] - [id number] Implant MEDICAL Implanted: Qty: 1 on 12/01/2019 by HEART Reuben Li MD at [facility] Procedures Comments Procedure Name Priority Date/Time [...] FRONTAL 1:31 PM CDT HGB K POC ([facility] ONLY) Routine 12/01/2019 1:09 PM CDT GLUCOSE [...] 10/24/2019 Encounte r for PACS 8:15 AM SOLUTION DESIGNER consultation US OUTSIDE IMAGES FOR Routine 10/24/2019 Encounte r for PACS 8:04 AM SOLUTION DESIGNER consultation CT OUTSIDE IMAGES FOR Routine 10/24/2019 Encounte r for PACS 8:03 AM SOLUTION DESIGNER consultation CT OUTSIDE IMAGES FOR Routine 10/24/2019 Encounte r for PACS 8:03 AM SOLUTION DESIGNER consultation CT OUTSIDE IMAGES FOR Routine 10/24/2019 Encounte r for PACS 8:02 AM SOLUTION DESIGNER consultation CT OUTSIDE IMAGES FOR Routine 10/24/2019 Encounte r for PACS 8:02 AM SOLUTION DESIGNER consultation US OUTSIDE IMAGES FOR Routine 10/24/2019 Encounte r for PACS 8:01 AM SOLUTION DESIGNER consultation IR OUTSIDE IMAGES FOR Routine 10/24/2019 Encounte r for PACS 8:01 AM SOLUTION DESIGNER consultation CT OUTSIDE IMAGES FOR Routine 10/24/2019 Encounte r for PACS 8:00 AM SOLUTION DESIGNER consultation CT OUTSIDE IMAGES FOR Routine 10/24/2019 Encounte r for PACS 8:00 AM SOLUTION DESIGNER consultation CT OUTSIDE IMAGES FOR Routine 10/24/2019 Encounte r for PACS 7:59 AM SOLUTION DESIGNER consultation US OUTSIDE IMAGES FOR Routine 10/22/2019 Encounte r for PACS 3:24 PM SOLUTION DESIGNER consultation IR OUTSIDE IMAGES FOR Routine 10/22/2019 Encounte r for PACS 3:23 PM SOLUTION DESIGNER consultation CT OUTSIDE IMAGES FOR Routine 10/22/2019 Encounte r for PACS 3:22 PM SOLUTION DESIGNER consultation US OUTSIDE IMAGES FOR Routine 10/22/2019 Encounte r for PACS 3:21 PM SOLUTION DESIGNER consultation IR OUTSIDE IMAGES FOR Routine 10/22/2019 Encounte r for PACS 3:21 PM SOLUTION DESIGNER consultation from Last 3 Months Results * Prothrombin Time/INR--if patient on warfarin (12/07/2019 2:26 AM CDT) Only the most recent of 7 results within the time period is included. Protime 21.1 (H) 11.4 - 15.0 sec [facility] INR 1.9 (H) 0.8 - 1.2 [facility] Specimen Blood Performing Organization Address [facility] one Number [facility] [address] [place] [address] LABORATORIES [facility] [address] [place] [address] * Complete Blood Count (12/06/2019 12:31 AM CDT) Only the most recent of 4 results within the time period is included. WBC 9.27 4.00 - 11.00 TH/uL [facility] RBC 3.56 (L) 4.31 - 5.84 MIL/uL [facility] Hemoglobin 10.5 (L) 13.0 - 17.0 g/dL [facility] Hematocrit 30 (L) 40 - 50 % [facility] MCV 83 80 - 99 fL [facility] MCH 30 27 - 34 pg [facility] MCHC 36 32 - 36 % [facility] RDW 12.5 11.5 - 14.5 % [facility] Platelet Count 213 140 - 400 TH/uL [facility] MPV 9.8 9.4 - 12.3 fL [facility] Nucleated RBCs 0 0 - 0 /100 [facility] Specimen Blood Performing Organization Address City/[facility] one Number [facility] [address] [place] [address] LABORATORIES [facility] [address] [place] [address] * Basic Metabolic Panel (12/06/2019 12:31 AM CDT) Only the most recent of 4 results within the time period is included. Pathologist [facility] Sodium 134 133 - 147 MEQ/L [facility] Potassium 3.6 3.5 - 5.3 MEQ/L [facility] Chloride 98 96 - 112 MEQ/L [facility] Carbon Dioxide 31 20 - 32 MEQ/L [facility] Anion Gap 4 (L) 5 - 17 [facility] Calcium 8.7 8.4 - 10.5 mg/dL [facility] Glucose 111 (H) 70 - 100 mg/dL [facility] Blood Urea 16 7 - 26 mg/dL [facility] Creatinine 0.8 0.6 - 1.3 mg/dL [facility] eGFR Male AA >130 60 - 200 [facility] mL/min/1.73sq [facility] eGFR Male 112 60 - 200 [facility] Non-AA mL/min/1.73sq [facility] Specimen Blood Performing Organization Address City/[facility] one Number [address] [address] LABORATORIES [facility] [address] [place] [address] * Potassium (12/05/2019 12:45 AM CDT) Only the most recent of 4 results within the time period is included. Potassium 3.7 3.5 - 5.3 MEQ/L [facility] Specimen Blood Performing Organization Address City/[facility] Ph one Number [address] [address] LABORATORIES [facility] [address] [place] [address] * XR Chest 2 views (PA and lateral) (12/04/2019 7:12 AM CDT) Specimen Impressions Performed At Left worse than right bibasilar subsegmental atelecta sesLuz [place] Mildly interstitial pulmonary edema. READING SITE: Home, due to Covid-19 Narrative Performed At Patient: TRUPTI PARRISH Sex#: M #: [id number] Taylor# : [id number] Location: [place] [address] Acces eduarda#: [id number] Procedure Requested: [id number] XR CHEST 2 VIEWS (PA AND LATERAL) [...] - 12/04/2019 7:31 AM CDT Patient: TRUPTI PRARISH Sex#: M #: 1985 Taylor#: [id number] Location: [address] H410-01 Procedure Requested: [id number] XR CHEST 2 VIEWS (PA AND LATERAL) [...] Performing Organization Address City/State/Zipcode Ph one Number [facility] * Electrocardiogram (ECG) (12/04/2019 3:39 AM CDT) Only the most recent of 2 results within the time period is included. 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1985 Requested By: JIMMY RAMÍREZ Order Number: [id number] Reading MD: Ronnell Damian Measurements Intervals Thayer Rate: 120 P: 37 NH: 148 QRS: 15 QRSD: 102 T: 29 QT: 328 QTc: 464 Interpretive Statements SINUS TACHYCARDIA PROBABLE LEFT VENTRICULAR HYPERTROPHY ST ELEVATION, CONSIDER PERICARDITIS Electronically Signed On 12-04-2019 10:36 :48 CDT by Ronnell Damian Procedure Note Interface, External Ris In - 12/04/2019 10:36 AM CDT [facility] Test Date: 2019-12-04 Pat Name: TRUPTI PARRISH Department: [facility] H4S Room: H410 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1985 Requested By: JIMMY RAMÍREZ Order Number: [id number] Reading MD: Ronnell Damian Measurements Intervals Thayer Rate: 120 P: 37 NH: 148 QRS: 15 QRSD: 102 T: 29 QT: 328 QTc: 464 Interpretive Statements SINUS TACHYCARDIA PROBABLE LEFT VENTRICULAR HYPERTROPHY ST ELEVATION, CONSIDER PERICARDITIS Electronically Signed On 12-04-2019 10:36:48 CDT by Ronnell Damian Performing Organization Address City/[facility] Ph one Number [facility] * GLUCOSE POC (12/03/2019 7:42 AM CDT) Only the most recent of 21 results within the time period is included. Glucose POC 134 (H) 70 - 100 mg/dL [facility] LAB[facility]ATORIES Specimen Performing Organization Address City/[facility] Ph one Number [address] [address] LABORATORIES * XR Chest single view frontal [...] PARRISH Sex#: M #: 1985 Taylor# : [id number] Location: [address] ICU [id number] Access ion#: [id number] Procedure Requested: [id number] XR CHEST SINGLE VIEW FRONTAL Reason for [...] TRUPTI PARRISH Sex#: M #: 1985 Taylor#: [id number] Location: [address] ICU [id number] Procedure Requested: [id number] XR CHEST SINGLE VIEW FRONTAL Reason for [...] Ventura MD 12/01/2019 5:3 3 PM ISABELLA [address]- Probe placement, image acquistio n & report, [address]25[address]- Doppler, pulse wave and/or continuous with spectral di splay [place] [address]4332- Doppler color flow velocity mappingPerforming Physician: Michael [...] appendage: No Mass seen. Normal emptying velocity ISABELAL probe removed easily and atraumatic ally: yesNotes: Post CPB: Normal functioning mechanical aortic prosthesi s. Trace AI. No MR or TR. LV and RV function preserved. No evidence of A o dissection. Remainder of exam without change. * HGB/K POC (12/01/2019 1:09 PM CDT) Hemoglobin 15.7 13.0 - 17.0 g/dL [facility]ATORIES Potassium 5.4 (H) 3.5 - 5.3 MEQ/L [facility] Specimen Performing Organization Address City/State[facility] one Number [address] [address] LABORATORIES * ANESTHESIA PA CATH (12/01/2019 11:54 [...] Calcium 4.3 (L) 4.5 - 5.3 mg/dL [facility] Sodium 132 (L) 133 - 147 MEQ/L [facility] Potassium 6.6 (C) 3.5 - 5.3 MEQ/L [facility] Specimen Arterial Performing Organization Address City/State/[facility] Ph one Number [address] [address] LABORATORIES [facility] [address] [place] [address] * Arterial Blood Gas + Coox (12/01/2019 10:51 AM CDT) Only the most recent of 3 results within the time period is included. Hemoglobin 12.1 (L) 13.0 - 17.0 g/dL [facility] Whole Blood [facility] Oxyhemoglobin 95.8 95.0 - 100.0 % THB [facility] Carboxyhemoglob 3.4 (H) 0.0 - 1.5 % THB [facility] in [facility] Methemoglobin 0.5 0.0 - 1.5 % B [facility] Total Oxygen 99.7 95.0 - 100.0 % [facility] Saturation [facility] O2 Content 16.7 (L) 17.0 - 100.0 mL/dL [facility] PO2 Arterial 177 (H) 80 - 100 mm Hg [facility] pCO2 Arterial 41 35 - 45 mm Hg [facility] pH Arterial 7.31 (L) 7.35 - 7.45 units [facility] Bicarbonate 20.6 19.0 - 29.0 MEQ/L [facility] Base Excess -5.4 (L) -3.0 - 3.0 MEQ/L [facility] Specimen Arterial Performing Organization Address City/[facility]/Zipcode Ph one Number [address] [address] LABORATORIES [facility] [address] [place] [address] * Tissue Pathology or Biopsy (12/01/2019 10:38 AM CDT) Specimen Tissue - Aortic Valve Narrative Performed At [facility] Pathology Group [facility] SURGICAL PATHOLOGY REPORT PATIENT: TRUPTI PARRISH /AGE/SEX: 1985 (Age: 34) /M ID #: [id number] SUBMITTING PHYSICIAN: Traci Leiva MD CLIENT: [facility] COLLECTED: 12/01/2019 REPORTED: 12/02/2019 SPECIMEN #: [id number] ##################MICROSCOPIC INTERPRET ATION################## Cardiac aortic valve, excision with noris ve replacement: - Nodular calcification and degen erative change. Melva Benitez M.D. Report Electronically Signed Out CDW:12/02/19 ELISA([facility]) CLINICAL HISTORY/IMPRESSION: Aortic valve. SPECIMEN LABELED: Aortic valve GROSS DESCRIPTION: The specimen is received in neutral buf fered formalin, labeled with the patient name and further designated "aortic noris ve." The specimen consists of a 3.2 x 2.7 x 0.6 cm coughlin-white and rubbery piece of soft tissue. Sectioning reveals a red-yellow, calcified cut surface. Graduate Student sections are submitted in cassette A1 after decalcification. (JOURDAN) jourdan Professional Component performed by ELISA , a [facility] Pathologist located at [facility], [address] [place] [address] Technical Component performed at [facility] rhett [place], [place] [id number] If immunohistochemical stains and or in situ hybridization are cited in this report, the performance characteristics were determined by [facility] Pathology Group in compliance with CLIA'88 regulations. Some of these tests rely on the use of 'analyte specific reagents' and are subject to specific l abeling requirements by the FDA. Known positive and negative control tissues d emonstrate appropriate staining. Results should be interpreted with caution give n the likelihood of false negativity on decalcified specimens. This testing was developed b sweetie [facility] Pathology Group. It has not been cleared or approved by the FDA. The FDA has determined that such clearance or approval is not necessary. ###END OF REPORT### Performing Organization Address City/State/Zipcode Ph one Number [facility] [address] [facility] [place] [address] [address] * Activated Clotting Time POC (12/01/2019 10:33 AM CDT) Only the most recent of 3 results within the time period is included. Activated 543 (H) 99 - 130 sec [facility] Clotting Time [facility]IES Specimen Performing Organization Address City/[facility] Ph one Number [facility] [address] [place] [address] LABORATORIES * Retype Patient ABORH (12/01/2019 7:32 AM CDT) Pathologist [facility] ABORH Type A Positive [facility] Confirm Blood Yes [facility] Specimen Blood Performing Organization Address City/[facility] Ph one Number [facility] [address] [place] [address] LABORATORIES [facility] [address] [place] [address] * Hemoglobin A1C (12/01/2019 7:23 AM CDT) Pathologist [facility] Hemoglobin A1C 5.6 4.0 - 5.6 % [facility] Comment: Hospital Lab Non-diabetic 4.0 - 5.6 % Prediabetes 5.7 - 6.4 % Diabetes >= 6.5 % Specimen Blood Performing Organization Address City/[facility] one Number [facility] [address] [place] [address] LABORATORIES [facility] [address] [place] [address] * IR Outside images for PACS (12/01/2019 7:23 AM CDT) Only the most recent of 6 results within the time period is included. Specimen Performing Organization Address City/[facility] one Number [place] * RBCs 2 Units (12/01/2019 7:10 AM CDT) 01 - PRODUCT ID Red Blood Cells [employer] [facility] LABORATORIES 01 - UNIT [id number] [employer] NUMBER [facility] LAB[facility] 01 - CROSS Compatible [place] [employer] [facility] LABORATORIES 01 - STATUS Ready [employer] INFO [facility] LABORATORIES 01 - PRODUCT [id number] [employer] CODE [facility] LABORATORIES 01 - BLOOD TYPE A Pos [employer] [facility] 02 - PRODUCT ID Red Blood Cells [employer] [facility] LABORATORIES 02 - UNIT [id number] [facility] [employer] NUMBER [facility] LAB[facility]ATORIES 02 - CROSS Compatible [facility] 02 - STATUS Ready [facility] LABORATORIES 02 - PRODUCT [id number] [facility] CODE [facility] LABORATORIES 02 - BLOOD TYPE A Pos [facility]IES Specimen Blood Performing Organization Address City/State/Zipcode Ph one Number [facility] [address] [place] [address] LABORATORIES * Antibody Screen (12/01/2019 7:10 AM CDT) Antibody Screen Negative Negative [facility] Specimen Blood Performing Organization Address City/State/Zipcode Ph one Number [facility] [address] [place] [address] LABORATORIES [facility] [address] [place] [address] * ABORH Type (12/01/2019 7:10 AM CDT) ABORH Type A Positive [facility] Specimen Blood Performing Organization Address City/State/Zipcode Ph one Number [facility] [address] [place] [address] LABORATORIES [facility] [address] [place] [address] * XMATCH (12/01/2019 6:25 AM CDT) Specimen Blood Performing Organization Address City/State/Zipcode Ph one Number [facility] [address] [place], [place] [address] * [place] Outside images [...] Advance Directives For more information, please contact: [phone] Patient Graduate Student Explanation Type Date Recorded Health Care Directive Date Inactivated Comments Code Status Date Activated 12/07/2019 4:40 PM Full Code 12/01/2019 12:12 PM
--- OUTSIDE RECORDS SUMMARY | 2019-12-21 20:07 | XMS REPORT | Encounter Summary ---
Author Author [facility] Organization [facility] Address Unknown Phone Unavailable Care Team Providers Care Center Line Cutter Operator Name Role Phone Nichol Tobar PCP Reason for Referral * Rehabilitation - Outpatient (Routine) Referred By Contact Referred To Contact Status Reason Specialty Diagnoses / Procedures Reuben Li MD [address] [address] Closed Specialty Services Cardiac Diagnoses Required Rehabilitation S/P AVR (aortic valve replacement) Reason for Visit * Auth/Cert Referred By Contact Referred To Contact Status Reason Specialty Diagnoses / Procedures Diagnoses AORTIC STENOSIS P rocedures IL RPLCMT PROST AORTIC VALVE OPEN XCP HOMOGRF/STENT AORTIC VALVE REPLACEMENT (MECHANICAL) ECHOCARDIOGRAM, TRANSESOPHAGEAL POSSIBLE REPLACEMENT OF ASCENDING AORTA Encounter Details Care Team Description Date Type Department Reuben Li MD [address] [id number] S/P mechanical AVR (aortic valve replace ment) (Primary Dx); Encounter for consultation; Acute post-operative pain; Hypoxemia; Leukocytosis, unspecified type; Severe obesity (BMI >= 40) ([facility]) 12/01/2019 [facility] Hospit [facility] - Encounter [address] [facility] 12/07/2019 [place], [place] [id number] Social History Date Tobacco Use Types Packs/Day [...] stay. ? Parking entrance at either the Inside([address] Entrance 4, with field hand parking or at at the Neuro [place], Entrance 1. Screeners will be locate d [...] RN ANP - 12/07/2019 7:14 AM CDT [facility] V[facility] POST-OP Progress Note Date: [...] 10/2018 - follows with Dr. Medina in [place], [place] 5. Obesity 6. Chronic anticoagulation - [...] CDT Patient completed ambulation in hallway with rehab manager/mobility team unde r direction of nursing staff. * Margo Wayne RN ANP - 12/06/2019 7:25 AM CDT [facility] Cardiothoracic [facility] Vascular POST-OP Progress Note Date: [...] 10/2018 - follows with Dr. Medina in [place], [place] 5. Obesity 6. Chronic anticoagulation - [...] CDT Patient completed ambulation in hallway with rehab manager/mobility team unde r direction of nursing staff. * Alisia Chaparro NP - 12/05/2019 6:34 AM CDT [facility] Cardiothoracic [facility] Vascular POST-OP Progress Note Date: [...] 10/2018 - follows with Dr. Medina in [place], [place] 5. Obesity 6. Chronic anticoagulation - [...] AGNP-C 12/05/2019 6:34 AM * Fifi Bach, MEDICAL PRACTITIONERS - 12/04/2019 6:10 AM CDT [facility] Vascular POST-OP Progress Note Date: [...] s/p ablation. Follows with Dr. Medina in [place], [place]. 4. Post operative pain, expected. Received 2 doses Toradol yesterday. Prn oxycod one, APAP, scheduled Neurontin. 5. Hyponatremia. Na 129 again. Monitor. Home when O2 weaned, INR therapeutic. Lives in [place], [place]. PPE Statement: MARIA A العراقي and [...] Stated he is interested in attending at [facility] in [place], [place]. Given jn galvan from program. I will fax his contact information and order to the program for follow-up with him at home. * Fifi Bach FNP - 12/03/2019 6:15 AM CDT [facility] Cardiothoracic and Vascular POST-OP Progress Note Date: [...] Trupti Juarez DATE of SERVICE: 12/02/2019 CPI: [id number] AGE: 34 y.o. : 1985 DATE OF [...] Depression Morbid obesity (HCC) VT (ventricular tachycardia) ([facility]) 05/2018 with aberrancy PAST SURGICAL HISTORY: Past Surgical History: Procedure Laterality Date CARDIAC CATHETERIZATION 05/21/2018 normal cors. dilated ascending aorta (47 mm in diameter) CARDIAC CATHETERIZATION 07/10/2019 Performed in [place]. Normal ccoronaries. ELECTROPHYSIOLOGY STUDY POSSIBLE RFA OF SVT 10/2018 Performed at [facility] (AVNRT ablation of slow pathway) IMPLANTABLE LOOP RECORDER PLACEMENT Performed in [place], [place] RIGHT HEART CATHETERIZATION 07/10/2019 Performed in [place]. RA 14 RV 37/14 PA 39/13/28 PCWP [...] gabapentin, and Lidoderm patch. CI 3.3, 3.4. DISTILLER 390. ROS: 10 points reviewed and found [...] Trupti Juarez DATE of SERVICE: 12/01/2019 CPI: [id number] AGE: 34 y.o. : 1985 DATE OF [...] Depression Morbid obesity (HCC) VT (ventricular tachycardia) ([facility]) 05/2018 with aberrancy PAST SURGICAL HISTORY: Past Surgical History: Procedure Laterality Date CARDIAC CATHETERIZATION 05/21/2018 normal cors. dilated ascending aorta (47 mm in diameter) CARDIAC CATHETERIZATION 07/10/2019 Performed in [place]. Normal ccoronaries. ELECTROPHYSIOLOGY STUDY POSSIBLE RFA OF SVT 10/2018 Performed at [facility] (AVNRT ablation of slow pathway) IMPLANTABLE LOOP RECORDER PLACEMENT Performed in [place], [place] RIGHT HEART CATHETERIZATION 07/10/2019 Performed in [place]. RA 14 RV 37/14 PA 39/13/28 PCWP [...] Li MD - 12/01/2019 7:14 AM CDT [facility] H&P NAME: Trupti Juarez ADMISSION DATE: 12/01/2019 : 1985 AGE: 34 y.o. PCP: Reji Jacob MD ATTENDING: Reuben Li MD HISTORY OF PRESENT ILLNESS: Mr. Juarez is a pleasant 34 y.o. male who presents to [facility] this morning for aortic valve replacement [...] requiring defibrillat ion. He was referred to [facility] in [place] for EPS with RFA, which was preformed [...] been following with Dr. Medina in the [place] [facility]. He has been referred by Dr. [...] in diameter) CARDIAC CATHETERIZATION 07/10/2019 Performed in [place]. Normal ccoronaries. ELECTROPHYSIOLOGY STUDY POSSIBLE RFA OF SVT 10/2018 Performed at [facility] (AVNRT ablation of slow pathway) IMPLANTABLE LOOP RECORDER PLACEMENT Performed in [place], [place] RIGHT HEART CATHETERIZATION 07/10/2019 Performed in [place]. 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 The [...] PRN IV dilau did (see MAR). CVICU DRUM ATTENDANT, Cara Hollis, called. DRUM ATTENDANT ordered a one time dose of vickie apentin 200mg and PRN IV toadol q 6 hrs. documented in this encounter Miscellaneous Notes * Discharge Planning - Savita Tarango RN - 12/08/2019 10:24 AM CDT Discharge Planning Interventions General Discharge Note Anticipated discharge disposition: Home Self Care DC Wednesday 12/06 Faxed DC Summary to Dr Jacob @ [phone] Nichol Tobar@ [phone]. Radha Tarango RN [facility] [phone] * Nursing Discharge - Dinora Ledezma RN [...] information carefully each time. Talk to your eyeglass fitter regarding the use of this medicine in children. Speci al care may be needed. What side effects may I notice from receiving this medicine? Side effects that you should report to your doctor or health field care advocate as soon as possible: allergic reactions like [...] (report to your doc tor or health field care advocate if they continue or are bothersome): diarrhea [...] this medicine? Visit your doctor or health field care advocate for regular checks on your progre ss. [...] oft en. Notify your doctor or health field care advocate and seek emergency treatment if you develop [...] phone number of your doctor or health field care advocate or person to contact in an emergency. Do not start taking or stop taking any medicines or vpvc-fwz-ooxmqzk medicines except on the advice of your doctor or health field care advocate. You should discuss your diet with your doctor or health field care advocate. Do n ot make major changes in [...] risks and her options with her health field care advocate. Avoid sports and activities that might cause injury while you are using this me dicine. Severe falls or injuries can cause unseen bleeding. Be careful when usin g sharp tools or knives. Consider using an electric razor. Take special care bru shing or flossing your teeth. Report any injuries, bruising, or red spots on the skin to your doctor or health field care advocate. If you have an illness that causes [...] ntal work, tell your doctor or health field care advocate that you have been takin g this medicine. NOTE:This sheet is a summary. It may not cover all possible information. If you have questions about this medicine, talk to your doctor, pharmacist, or health care provider. Copyright 2020 [employer] * Sanames patient edu - Dinora Ledezma [...] information carefully each time. Talk to your eyeglass fitter regarding the use of this medicine in children. Speci al care may be needed. What side effects may I notice from receiving this medicine? Side effects that you should report to your doctor or health field care advocate as soon as possible: allergic reactions like [...] (report to your doc tor or health field care advocate if they continue or are bothersome): constipation [...] site. Contact the ANITRA at or your [facility] government to find a site. If you [...] this medicine? Tell your doctor or health field care advocate if your pain does not go away, [...] days, call your docto r or health field care advocate. Your mouth may get dry. Chewing sugarless [...] Ledezma RN - 12/07/2019 12:13 PM CDT 9198 Gabapentin capsules or tablets What is this [...] information carefully each time. Talk to your eyeglass fitter regarding the use of this medicine in children. While this drug may be prescribed for children as young as 3 years for selected condi tions, precautions do apply. What side effects may I notice from receiving this medicine? Side effects that you should report to your doctor or health field care advocate as soon as possible: allergic reactions like skin rash, itching or hives, swelling of the face , lips, or tongue breathing problems suicidal thoughts, mood changes Side effects that usually do not require medical attention (report to your doc tor or health field care advocate if they continue or are bothersome): dizziness [...] this medicine? Visit your doctor or health field care advocate for regular checks on your progre ss. You may want to keep a record at home of how you feel your condition is resp onding to treatment. You may want to share this information with your doctor or health field care advocate at each visit. You should contact your doctor or health field care advocate if your seizures get worse or if you have any new types of se izures. Do not stop taking this medicine or any of your seizure medicines unless instructed by your doctor or health field care advocate. Stopping your medicine s uddenly can increase [...] or dying should be reported to your [facility] field care advocate right away. Women who become while using this medicine may enroll in the [facility] Antiepileptic Drug Registry by calling . This miesha stry collects information about the safety of antiepileptic drug use during preg ching. NOTE:This sheet is a summary. It may not cover all possible information. If you have questions about this medicine, talk to your doctor, pharmacist, or health care provider. Copyright 2020 [employer] * Emiliano patient edu - Dinora Ledezma RN - 12/07/2019 12:13 PM CDT 96046 Aspirin, ASA chewable tablets What is this [...] o ften than directed. Talk to your eyeglass fitter regarding the use of this medicine in [...] should report to your doctor or health field care advocate as soon as possible: allergic reactions like [...] (report to your doc tor or health field care advocate if they continue or are bothersome): diarrhea [...] if prescribed by your doctor or health field care advocate. Do not take aspirin or aspirin-like medicines [...] pharmacist, or health care provider. Copyright 2020 [employer] * Krames patient edu - Dinora Ledezma [...] on label or package. Talk to your eyeglass fitter regarding the use of this medicine in children. While this drug may be prescribed for children as young as 12 years for selected cond itions, precautions do apply. What side effects may I notice from receiving this medicine? Side effects that you should report to your doctor or health field care advocate as soon as possible: allergic reactions like skin rash, itching or hives, swelling of the face , lips, or tongue breathing problems chest pain or chest tightness dizzines Side effects that usually do not require medical attention (report to your doc tor or health field care advocate if they continue or are bothersome): tingling, [...] without asking your do ctor or health field care advocate. What if I miss a dose? Apply [...] s for which your doctor or health field care advocate has prescribed. NOTE:This sheet is a summary. It may not cover all possible information. If you have questions about this medicine, talk to your doctor, pharmacist, or health care provider. Copyright 2020 [employer] * [facility] - Dinora Ledezma RN - 12/07/2019 12:13 PM CDT [id number] Hyponatremia Hyponatremia means low sodium levels in [...] confusion Fainting or loss of consciousness Seizure [id number] [employer]. [address] [place] [address] 00 58. All rights reserved. This information is not intended as a substitute for p formerly [facility] medical care. Always follow your healthcare professional's instructi ons. * Emiliano patient edu - Dinora Ledezma RN - 12/07/2019 12:13 PM CDT 90448 Eating Heart-Healthy Foods Eating has a big [...] on added fat and salt. Look on [employer] internet for lower-fat, lower-sodium recipes. Also, try [...] basil, cilantro, ci nnamon, pepper, and sunny. [phone] [employer] [place] [address]. All rights reserved. This information is not intended as a substitute for p [facility] medical care. Always follow your healthcare professional's instructi ons. * Krames patient edu - Dinora Ledezma RN - 12/07/2019 12:13 PM CDT 03711 Heart Valve Problems: Aortic Stenosis Aortic stenosis [...] valve, even if you dont have symptoms. 8968-2748 [employer]. [address] [place] [address] 190 70. All rights reserved. This information is not [...] support Sari Bhardwaj,PT,DPT Physical Therapist [employer]te Number: [phone] * End of Shift Note - Syl [...] at home. Has a ride Home at [place]. Talked with Margo GREENBERG via Voalte. She is setting up his follow up visit with card iology and were his INR needs to be sent. Patient from [facility]. Will use local lab. See my note from 12/03 on his stoner out. Radha Tarango RN [facility] [phone] * Therapy Note - Jm Araujo PTA [...] Wm. Steven Araujo PTA III Physical Therapist Environmental Sampling Technician Sharmin phone: [phone] * End of Shift Note - Alma [...] safety. * Therapy Note - Jm Araujo, REFERRAL AND INFORMATION AIDE - 12/04/2019 1:58 PM CDT 12/04/19 1001 [...] Wm. Steven Araujo PTA III Physical Therapist Environmental Sampling Technician Sharmin phone: [phone] * Discharge Planning - Savita Tarango RN - 12/04/2019 10:10 AM CDT Discharge Planning Interventions General Discharge Note Anticipated discharge disposition: Home Self Care Additional discharge planning information: POD # 3 Mech AVR Home on coumadin. INR 1.2 Weaning O2 today. PCP Dr Isidra Tobar [facility] Extractor Machine Operator: Dr Reji Jacob [facility] Contact: Dr Tone Medina see patient in [facility] Cardiology. Contact: Patient'S/O Misty Dave Will provide ride home. Friends will stay with him at time of DC. Plan home self care. Radha Tarango RN [facility] [phone] * End of Shift Note - Alma [...] 0420, page returned by Dr Roxane hudson @9772, gave TO to give Metoprolol early 0600. [...] now 120 s and 140s-150s with activity. DRUM ATTENDANT notified and ordered a 1x dose of [...] safety. * Therapy Note - Jm Araujo, REFERRAL AND INFORMATION AIDE - 12/03/2019 4:30 PM CDT 12/03/19 1425 [...] . Steven Araujo PTA III Physical Therapist Environmental Sampling Technician Sharmin phone: [phone] * End of Shift Note - Mayela [...] Dave via phone as am working re [employer]. S.O lives in separate residence but she and a friend will be providing 24/7 a sst at dc. Pt works FT and indep/ active prior to surgery No Hx amb devices/ DME/ Oxygen/ PAC facilities/ rehab PCP confirmed as Nichol Tobar, [facility] , [facility] Extractor Machine Operator Sarahi Denis ; Additional information: Mech AVR. Hx Bicuspid AV/ , AAA, VT/ Ablation RODNEY Goodrich charge coordinator, Birthing Nurse medical team, Plating Tank Operator met for patient rounds to discuss [...] discharge: Family Concerns: No Pt has Payor: [facility] / Plan: OUT OF AREA PREF [...] APRN and dilip ves their medications from [facility] - [place], [place] - [address] [facility] [address] [facility] [address] Facesheet verified. Ericka Woods RN, BSN Plating Tank Operator [phone] * End of Shift Note - Priscilla [...] at sinuses of Valsalva Depression Morbid obesity ([facility]) VT (ventricular tachycardia) ([facility]) 05/2018 with aberrancy Patient/Family Reports Pt seen [...] him upon dc Prior Function Level of [place] Independent with ADLs;Independent with functional transfer s;Independent [...] Denise Malik PT, DPT Physical Therapist Voalte: [phone] * Therapy Note - Denise Malik PT - 12/02/2019 11:20 AM CDT 12/02/19 1120 PT Visit Info Attempted but was unable to see patient (date) 12/02/19 Reason patient was not seen Pt refused PT reason not seen - extended comment Pt declines and prefers to complete PT rita luation this afternoon. PT will return between 8704-4952. Notified RN of PT plan . Denise Malik PT, DPT Physical Therapist Voalte: [phone] * End of Shift Note - Adair [...] to 4L HFNC . Insulin gtt started. DISTILLER: 250. UOP: 1.7L. OOBTC @ 1730. Sys [...] tomorrow. Sari Bhardwaj,PT,DPT Physical Therapist Voalte Number: [phone] * Brief Operative Note - Reuben Li MD - 12/01/2019 12:21 PM CDT Brief Operative Note Trupti Juarez 12/01/2019 Event Time In Procedure / Incision Start 09 Pre-op Diagnosis: Aortic valve stenosis, bicuspid valve Post-op Diagnosis: same Procedure: AORTIC VALVE REPLACEMENT WITH 25MM [facility] JORDAN'S MECHANICAL, N/A ECHOCARDIOGRAM, TRANSESOPHAGEAL, N/A Surgeon(s) and Role: * Traci Li MD - Primary Anesthesia Type: General Staff: Occup Therapist: Cyndy Kendall RN; Melva Nair RN Information Systems Security Developer: Christiano Quinonez CCP Physician Environmental Sampling Technician: KIM Kessler-C Scrub Person: Estrella Pizano RN Anesthesiologist: Rusty Ventura MD Anesthesiologist Environmental Sampling Technician: JOSÉ ANTONIO Ron Findings: Estimated Blood Loss: Specimens: . ID Source Type Tests Collected By Collected At 1 Aortic Valve Tissue TISSUE PATHOLOGY OR BIOPSY Reuben Li MD 12/01/19 1038 Description: AORTIC VALVE Comment: Pre-op diagnosis: AORTIC STENOSIS Implants: @ORIMPLANT@ Complications: PPE Statement: 2 chest tubes 1 A and 2 V pacing wires Dictation # [id number] Traci Li Date: 12/01/2019 Time: 12:21 PM * Operative Note - Reuben Li MD - 12/01/2019 12:21 PM CDT Name: TRUPTI JUAREZ MRN: Date of : 1985 Attending Physician: Traci Li MD Date of Procedure: 12/01/2019 DATE OF OPERATION: 12/01/2019 PREOPERATIVE DIAGNOSES: Symptomatic aortic valve stenosis. POSTOPERATIVE DIAGNOSIS: Symptomatic aortic valve stenosis. OPERATION: Aortic valve replacement (St. Jordan Concord mechanical aortic valve, alisson bowles #[id number] serial #[id number]). SURGEON: Dr. Glen Li. SOFT SUGAR SUPERVISOR: KIM Martinez INDICATIONS FOR OPERATION: This 34-year-old [...] of a 25 mm S t. Jordan Concord mechanical prosthesis. This valve was calculated to [...] was closed using a combination of #6 [id number] circumferential stainless steel wire and double stranded stainle ss steel wire. The remainder of the incision was closed in layers using absorba ble suture. At the end of the operation, the patient was in normal sinus rhythm with excellent hemodynamics. Traci Li MD [id number] CC: cc: Tone Medina MD, Reji Jacob [...] Protime 21.1 (H) 11.4 - 15.0 sec [facility] INR 1.9 (H) 0.8 - 1.2 [facility] Specimen Blood Performing Organization Address City/State/Zipcode Ph one Number [address] [address] LABORATORIES [facility] [address] [place] [address] * Basic Metabolic Panel (12/06/2019 12:31 AM CDT) Only the most recent of 4 results within the time period is included. Sodium 134 133 - 147 MEQ/L [facility] Potassium 3.6 3.5 - 5.3 MEQ/L [facility] Chloride 98 96 - 112 MEQ/L [facility] Carbon Dioxide 31 20 - 32 MEQ/L [facility] Anion Gap 4 (L) 5 - 17 [facility] Calcium 8.7 8.4 - 10.5 mg/dL [facility] Glucose 111 (H) 70 - 100 mg/dL [facility] Blood Urea 16 7 - 26 mg/dL [facility] Creatinine 0.8 0.6 - 1.3 mg/dL [facility] eGFR Male AA >130 60 - 200 [facility] mL/min/1.73sq [facility] eGFR Male 112 60 - 200 [facility] Non-AA mL/min/1.73sq [facility] Specimen Blood Performing Organization Address City/[facility] [place] [address] LABORATORIES [facility] [address] [place] [address] * Complete Blood Count (12/06/2019 12:31 AM CDT) Only the most recent of 4 results within the time period is included. WBC 9.27 4.00 - 11.00 TH/uL [facility] RBC 3.56 (L) 4.31 - 5.84 MIL/uL [facility] Hemoglobin 10.5 (L) 13.0 - 17.0 g/dL [facility] Hematocrit 30 (L) 40 - 50 % [facility] MCV 83 80 - 99 fL [facility] MCH 30 27 - 34 pg [facility] MCHC 36 32 - 36 % [facility] RDW 12.5 11.5 - 14.5 % [facility] Platelet Count 213 140 - 400 TH/uL [facility] MPV 9.8 9.4 - 12.3 fL [facility] Nucleated RBCs 0 0 - 0 /100 [facility] Specimen Blood Performing Organization Address City/[facility] Ph one Number [place] [phone] [place] [address] LABORATORIES [facility] [address] [place] [address] * Potassium (12/05/2019 12:45 AM CDT) Only the most recent of 4 results within the time period is included. Potassium 3.7 3.5 - 5.3 MEQ/L [facility] Specimen Blood Performing Organization Address City/State/Zipcode Ph one Number [facility] [address] [place] [address] LABORATORIES [facility] [address] [place] [address] * XR Chest 2 views (PA and lateral) (12/04/2019 7:12 AM CDT) Specimen Impressions Performed At Left worse than right bibasilar subsegmental atelecta ses. LEFTYSON Mildly interstitial pulmonary edema. READING SITE: Home, due to Covid-19 Narrative Performed At Patient: TRUPTI JUAREZ Sex#: M #: 1985 Taylor# : [id number] Location: [address]- Acces eduarda#: [id number] Procedure Requested: [id number] XR CHEST 2 VIEWS (PA AND LATERAL) [...] TRUPTI JUAREZ Sex#: M #: 1985 Taylor#: [id number] Location: [address] H410- Procedure Requested: [id number] XR CHEST 2 VIEWS (PA AND LATERAL) [...] 148 TRACEMASTER Specimen Narrative Performed At [facility]ACEMAST[facility] Test Date: 2019-12-04 Pat Name: TRUPTI JUAREZ Department: [address] [address] Room: 10 Gender: Male Self Pay Collector: [id number] : 1985 Requested By: PALMA RAMÍREZ Order Number: [id number] Reading MD: Ronnell Damian Measurements Intervals [place] Rate: 120 P: 37 IL: 148 QRS: 15 QRSD: 102 T: 29 QT: 328 QTc: 464 Interpretive Statements SINUS TACHYCARDIA PROBABLE LEFT VENTRICULAR HYPERTROPHY ST ELEVATION, CONSIDER PERICARDITIS Electronically Signed On 12-04-2019 10:36 :48 CDT by Ronnell Damian Procedure Note Interface, External Ris In - 12/04/2019 10:36 AM CDT [facility] Test Date: 2019-12-04 Pat Name: TRUPTI JUAREZ Department: [address] Room: [facility] Gender: Male Self Pay Collector: [id number] : 1985 Requested By: PALMA RAMÍREZ Order Number: [id number] Reading MD: Ronnell Damian Measurements Intervals [place] Rate: 120 P: 37 IL: 148 QRS: 15 QRSD: 102 T: 29 QT: 328 QTc: 464 Interpretive Statements SINUS TACHYCARDIA PROBABLE LEFT VENTRICULAR HYPERTROPHY ST ELEVATION, CONSIDER PERICARDITIS Electronically Signed On 12-04-2019 10:36:48 CDT by Ronnell Damian Performing Organization Address [facility]/Count Includes [facility] one Number TRACEMASTER * GLUCOSE POC (12/03/2019 7:42 AM CDT) Only the most recent of 21 results within the time period is included. Glucose POC 134 (H) 70 - 100 mg/dL [facility] Specimen Performing Organization Address [facility]/Count Includes [facility] one Number [address] [address] LABORATORIES * XR Chest single view frontal [...] JUAREZ Sex#: M #: 1985 Taylor# : [id number] Location: [address] ICU [id number] Access ion#: [id number] Procedure Requested: [id number] XR CHEST SINGLE VIEW FRONTAL Reason for [...] TRUPTI JUAREZ Sex#: M #: 1985 Taylor#: [id number] Location: [address] ICU [id number] Procedure Requested: [id number] XR CHEST SINGLE VIEW FRONTAL Reason for [...] Home, due to Covid-19 Performing Organization Address City/[facility] Ph one Number JENNIFER * HGB/K POC (12/01/2019 1:09 PM CDT) Pathologist [facility] Hemoglobin 15.7 13.0 - 17.0 g/dL [facility] Potassium 5.4 (H) 3.5 - 5.3 MEQ/L [facility] Specimen Performing Organization Address City/[facility] Ph one Number [address] [address] LABORATORIES * Lytes//HGB/CA POC (12/01/2019 10:51 AM CDT) Only the most recent of 3 results within the time period is included. [facility] Ionized Calcium 4.3 (L) 4.5 - 5.3 mg/dL [facility] Sodium 132 (L) 133 - 147 MEQ/L [facility] Potassium 6.6 (C) 3.5 - 5.3 MEQ/L [facility] Specimen Arterial Performing Organization Address City/[facility] Ph one Number [address] [address] LABORATORIES [facility] [address] [place] [address] * Arterial Blood Gas + Coox (12/01/2019 10:51 AM CDT) Only the most recent of 3 results within the time period is included. Hemoglobin 12.1 (L) 13.0 - 17.0 g/dL [facility] Whole Blood [facility] Oxyhemoglobin 95.8 95.0 - 100.0 % [facility] Carboxyhemoglob 3.4 (H) 0.0 - 1.5 % [facility] in [facility] Methemoglobin 0.5 0.0 - 1.5 % [facility] Total Oxygen 99.7 95.0 - 100.0 % [facility] O2 Content 16.7 (L) 17.0 - 100.0 mL/dL [facility] PO2 Arterial 177 (H) 80 - 100 mm Hg [facility] pCO2 Arterial 41 35 - 45 mm Hg [facility] pH Arterial 7.31 (L) 7.35 - 7.45 units [facility] Bicarbonate 20.6 19.0 - 29.0 MEQ/L [facility] Base Excess -5.4 (L) -3.0 - 3.0 MEQ/L [facility] Specimen Arterial Performing Organization Address City/State/Zipcode Ph one Number [facility] [address] [place] [address] LABORATORIES [facility] [address] [place] [address] * Tissue Pathology or Biopsy (12/01/2019 10:38 AM CDT) Specimen Tissue - Aortic Valve Narrative Performed At [facility] Pathology Group [facility] SURGICAL PATHOLOGY REPORT PATIENT: TRUPTI JUAREZ /AGE/SEX: 1985 (Age: 34) /M ID #: [id number] SUBMITTING PHYSICIAN: Traci Leiva MD CLIENT: [facility] COLLECTED: 12/01/2019 REPORTED: 12/02/2019 SPECIMEN #: [id number] ##################MICROSCOPIC INTERPRET ATION################## Cardiac aortic valve, excision with noris ve replacement: - Nodular calcification and degen erative change. Melva Benitez M.D. Report Electronically Signed Out CDW:12/02/19 ELISA([facility]) CLINICAL HISTORY/IMPRESSION: Aortic valve. SPECIMEN LABELED: Aortic valve GROSS DESCRIPTION: The specimen is received in neutral buf fered formalin, labeled with the patient name and further designated "aortic noris ve." The specimen consists of a 3.2 x 2.7 x 0.6 cm coughlin-white and rubbery piece of soft tissue. Sectioning reveals a red-yellow, calcified cut surface. [employer] Host sections are submitted in cassette A1 after decalcification. (JOURDAN) mj Professional Component performed by ELISA , a [facility] Pathologist located at [facility], [address] [place] [address] Technical Component performed at [facility] [address] [place], [place] [address] If immunohistochemical stains and or in situ hybridization are cited in this report, the performance characteristics were determined by [facility]ology [facility] in compliance with CLIA'88 regulations. Some of these tests rely on the use of 'analyte specific reagents' and are subject to specific l abeling requirements by the FDA. Known positive and negative control tissues d emonstrate appropriate staining. Results should be interpreted with caution give n the likelihood of false negativity on decalcified specimens. This testing was developed b sweetie [facility]. It has not been cleared or approved by the FDA. The FDA has determined that such clearance or approval is not necessary. ###END OF REPORT### Performing Organization Address City/State/Zipcode Ph one Number [facility] [address] [facility] [place] [address] [address] * Activated Clotting Time POC (12/01/2019 10:33 AM CDT) Only the most recent of 3 results within the time period is included. Activated 543 (H) 99 - 130 sec [facility] Clotting Time [facility] Specimen Performing Organization Address City/[facility]/Zipcode Ph one Number [facility] [address] [place] [address] LABORATORIES * Retype Patient ABORH (12/01/2019 7:32 AM CDT) ABORH Type A Positive [facility] Confirm Blood Yes [facility] Specimen Blood Performing Organization Address City/State/Zipcode Ph one Number [facility] [address] [place], [place] [id number] LABORATORIES [facility] [address] [place] [address] * Hemoglobin A1C (12/01/2019 7:23 AM CDT) Pathologist [facility] Hemoglobin A1C 5.6 4.0 - 5.6 % [facility] Comment: Hospital Lab Non-diabetic 4.0 - 5.6 % Prediabetes 5.7 - 6.4 % Diabetes >= 6.5 % Specimen Blood Performing Organization Address City/State/Zipcode Ph one Number [facility] [address] [place] [address] LABORATORIES [facility] [address] [place] [address] * IR Outside images for PACS (12/01/2019 7:23 AM CDT) Specimen Performing Organization Address City/[facility] Ph one Number [place] * RBCs 2 Units (12/01/2019 7:10 AM CDT) Pathologist [facility] 01 - PRODUCT ID Red Blood Cells [employer] [facility] NAV[employer]IME [place] 01 - UNIT [id number] [facility] Italia Pellets [facility]ATORIES 01 - CROSS Compatible NanoS [facility] 01 - STATUS Ready [facility] [employer] INFO [facility] LAB[facility]ATORIES 01 - PRODUCT [id number] [employer] CODE [facility] LAB[facility]ATORIES 01 - BLOOD TYPE A Pos Built [place] [employer] [facility] 02 - PRODUCT ID Red Blood Cells [email or web address] 02 - UNIT [id number] [facility] Italia Pellets [facility] 02 - CROSS Compatible [email or web address] 02 - STATUS Ready [facility] 02 - PRODUCT [id number] [facility] 02 - BLOOD TYPE A Pos [facility] Specimen Blood Performing Organization Address [facility]/Count Includes [facility] one Number [facility] [address] [place] [address] LABORATORIES * Antibody Screen (12/01/2019 7:10 AM CDT) Antibody Screen Negative Negative [facility] Specimen Blood Performing Organization Address City/[facility] Ph one Number [facility] [address] [place] [address] LABORATORIES [facility] [address] [place] [address] * ABORH Type (12/01/2019 7:10 AM CDT) ABORH Type A Positive [facility] Specimen Blood Performing Organization Address [facility]/Count Includes [facility] one Number [facility] [address] [place] [address] LABORATORIES [facility] [address] [place] [address] * XMATCH (12/01/2019 6:25 AM CDT) Specimen Blood Performing Organization Address [facility]/Count Includes [facility] one Number [facility] [address] [place], [place] [address] documented in this encounter [...]
--- OUTSIDE RECORDS SUMMARY | 2019-12-21 20:08 | XMS REPORT | Encounter Summary ---
Author Author [facility] Organization [facility] Address Unknown Phone Unavailable Care Team Providers Care Pump And Blower Operator Name Role Phone Reji Jacob PCP Encounter Details Care Team Description Date Type Department Encounter for consultation 11/28/2019 Imaging [facility] Virtual Revenu e [...]
--- OUTSIDE RECORDS SUMMARY | 2019-12-21 20:08 | XMS REPORT | Encounter Summary ---
Author Author [facility] Organization [facility] Address Unknown Phone Unavailable Care Team Providers Care Computer Typesetter Keyliner Name Role Phone Reji Jacob PCP Reason for Visit * Auth/Cert Referred By Contact Referred To Contact Status Reason Specialty Diagnoses / Procedures Diagnoses AORTIC STENOSIS P rocedures AK RPLCMT PROST AORTIC VALVE OPEN XCP HOMOGRF/STENT AORTIC VALVE REPLACEMENT (MECHANICAL) ECHOCARDIOGRAM, TRANSESOPHAGEAL POSSIBLE REPLACEMENT OF ASCENDING AORTA Encounter Details Care Team Description Date Type Department Rusty Ventura MD [address] [facility] [address] [phone] Jm Dorman DO [address] [facility] [place] [address] [phone] [facility] [address] [place] [address] Anesthesia Record Responsible Anesthesiologist Anesthesia Start Time Anesthesi a Stop Time Procedure Name Rusty Ventura MD 12/01/19 0802 12/01/19 1222 AORTIC VALVE REPLACEMENT WITH 25MM [facility] (N/A ) Date Time Event Comment 650 Anesthesia 2020 Initial Contact 0700 0706 AN Equip Check 0802 In room 0802 An Start 0802 RADIAL DRILL OPERATOR/AA JOSÉ ANTONIO Ron Intraprocedure Sign-Off 0802 [...] 12/01/19; Time: 07; Size 11/30 0707 by Rusty Do IV (gauge): 18 G; Orientation: Left; Florina pitt MD Location: Arm; Site Prep: Alcohol swab; Local Anesthetic: Intradermal; Insertio n Attempts: 1; Inserted By: SANDRO Wharton; Removal Date: 12/07/19; Removal Time: 1300 12/02/19 0815 by Priscilla High RN Arterial Date: 12/01/19; Time: 709 (created [...] 5:29 PM CDT Associated Order(s): ISABELLA ISABELLA 53053- Probe placement, image acquistion & report, 34644- Doppler, pulse wave and/or continuous with spectral display and 35004- Doppler color flow velocity mappingPerforming Physician: Audrey [...] catheter and ISABELLA Plan discussed with anesthesiologist child center assistant. Anesthetic plan and risks discussed with [...] Ventura MD 12/01/2019 5:3 3 PM ISABELLA 10387- Probe placement, image acquistio n & report, 44317- Doppler, pulse wave and/or continuous with spectral di splay and 08736- Doppler color flow velocity mappingPerforming Physician: Michael [...] (ZINACEF) injection Given Intravenous, As needed, Starting [facility] 12/01/19 at 0858, Anesthesia Intra-op 12/01/2019 9:30 AM CDT 250 mcg fentaNYL (SUBLIMAZE) injection Given As needed, Starting [facility] 12/01/19 at 0809 , Anesthesia Intra-op 100 [...] Given (2 %) injection As needed, Starting [facility] 12/01/19 at 0808 , Anesthesia Intra-op 12/01/2019 [...]
--- OUTSIDE RECORDS SUMMARY | 2019-12-21 20:08 | XMS REPORT | Encounter Summary ---
Author Author [facility] Organization [facility] Address Unknown Phone Unavailable Care Team Providers Care Filament Cutter Name Role Phone Reji Jacob PCP Reason for Visit * Auth/Cert Referred By Contact Referred To Contact Status Reason Specialty Diagnoses / Procedures Diagnoses AORTIC STENOSIS P rocedures MI RPLCMT PROST AORTIC VALVE OPEN XCP HOMOGRF/STENT AORTIC VALVE REPLACEMENT (MECHANICAL) ECHOCARDIOGRAM, TRANSESOPHAGEAL POSSIBLE REPLACEMENT OF ASCENDING AORTA Encounter Details Care Team Description Date Type Department Reuben Li MD [address] [place] [address] [phone] AORTIC VALVE REPLACEMENT WITH 25MM ST. J UDE'S MECHANICAL 12/01/2019 Surgery [facility] [address] [place] [address] Social History Date Tobacco Use Types Packs/Day [...] stay. ? Parking entrance at either the [facility]([address] Entrance 4, with surveillance sensor operator parking or at at the [facility], Entrance 1. Screeners will be locate d [...] ANP - 12/07/2019 7:14 AM CDT [facility] Cardiothoracic and Vascular POST-OP Progress Note Date: [...] 10/2018 - follows with Dr. Medina in [place], [place] 5. Obesity 6. Chronic anticoagulation - [...] CDT Patient completed ambulation in hallway with music rehabilitation therapist/mobility team unde r direction of nursing staff. * Margo Wayne RN ANP - 12/06/2019 7:25 AM CDT [facility] Cardiothoracic and Vascular POST-OP Progress Note Date: [...] 10/2018 - follows with Dr. Medina in [place], [place] 5. Obesity 6. Chronic anticoagulation - [...] CDT Patient completed ambulation in hallway with music rehabilitation therapist/mobility team unde r direction of nursing staff. * Alisia Chaparro NP - 12/05/2019 6:34 AM CDT [facility] Cardiothoracic and Vascular POST-OP Progress Note Date: [...] 10/2018 - follows with Dr. Medina in [place], [place] 5. Obesity 6. Chronic anticoagulation - [...] Bach FNP - 12/04/2019 6:10 AM CDT [facility] Cardiothoracic and Vascular POST-OP Progress Note Date: [...] s/p ablation. Follows with Dr. Medina in [place]. 4. Post operative pain, expected. Received 2 doses Toradol yesterday. Prn oxycod one, APAP, scheduled Neurontin. 5. Hyponatremia. Na 129 again. Monitor. Home when O2 weaned, INR therapeutic. Lives in [place], [place]. PPE Statement: MARIA A العراقي and Dr. Lemus used Yellow precautions (Level 3 mask and gloves) during the patient encounter. Fifi Bach 12/04/2019 6:11 AM Making progress, but slowly. Still on O2. He can hear his valve clicking. CXR ok except for volume loss at left base. INR hasn't yet bumped. Home in or so. * Ashlyn Peña RN - 12/03/2019 10:25 AM CDT AVR 12/01/19. Spoke with patient about the benefits of Outpatient Cardiac Rehab. Stated he is interested in attending at [facility] in [place], [place]. Given bro ripe from program. I will fax his contact information and order to the program for follow-up with him at home. * Fifi Bach FNP - 12/03/2019 6:15 AM CDT [facility] Cardiothoracic and Vascular POST-OP Progress Note Date: [...] Trupti Juarez DATE of SERVICE: 12/02/2019 CPI: [id number] AGE: 34 y.o. : 1985 DATE OF [...] in diameter) CARDIAC CATHETERIZATION 07/10/2019 Performed in [place]. Normal ccoronaries. ELECTROPHYSIOLOGY STUDY POSSIBLE RFA OF SVT 10/2018 Performed at [facility] (AVNRT ablation of slow pathway) IMPLANTABLE LOOP RECORDER PLACEMENT Performed in [place], [place] RIGHT HEART CATHETERIZATION 07/10/2019 Performed in [place]. RA 14 RV 37/14 PA 39/13/28 PCWP [...] gabapentin, and Lidoderm patch. CI 3.3, 3.4. CASHIER CREDIT 390. ROS: 10 points reviewed and found [...] Trupti Juarez DATE of SERVICE: 12/01/2019 CPI: [id number] AGE: 34 y.o. : 1985 DATE OF [...] Depression Morbid obesity (HCC) VT (ventricular tachycardia) ([facility]) 05/2018 with aberrancy PAST SURGICAL HISTORY: Past Surgical History: Procedure Laterality Date CARDIAC CATHETERIZATION 05/21/2018 normal cors. dilated ascending aorta (47 mm in diameter) CARDIAC CATHETERIZATION 07/10/2019 Performed in [place]. Normal ccoronaries. ELECTROPHYSIOLOGY STUDY POSSIBLE RFA OF SVT 10/2018 Performed at [facility] (AVNRT ablation of slow pathway) IMPLANTABLE LOOP RECORDER PLACEMENT Performed in [place], [place] RIGHT HEART CATHETERIZATION 07/10/2019 Performed in [place]. RA 14 RV 37/14 PA 39/13/28 PCWP [...] Li MD - 12/01/2019 7:14 AM CDT [facility] H&P NAME: Trupti Juarez ADMISSION DATE: 12/01/2019 : 1985 AGE: 34 y.o. PCP: Reji Jacob MD ATTENDING: Reuben Li MD HISTORY OF PRESENT ILLNESS: Mr. Juarez is a pleasant 34 y.o. male who presents to [facility] this morning for aortic valve replacement [...] requiring defibrillat ion. He was referred to [facility] in [place] for EPS with RFA, which was preformed [...] been following with Dr. Medina in the [place] [facility]. He has been referred by Dr. [...] in diameter) CARDIAC CATHETERIZATION 07/10/2019 Performed in [place]. Normal ccoronaries. ELECTROPHYSIOLOGY STUDY POSSIBLE RFA OF SVT 10/2018 Performed at [facility] (AVNRT ablation of slow pathway) IMPLANTABLE LOOP RECORDER PLACEMENT Performed in [place], [place] RIGHT HEART CATHETERIZATION 07/10/2019 Performed in [place]. 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 Joeclynn Chavez PA-C 12/01/2019 7:15 AM Above reviewed. The patient has severe symptomatic aortic stenosis and we did n ot think his AVR could safely wait until the covid crisis passes. Last week he underwent cardiac catheterization in [place] and he has no coronary disease. The [...] PRN IV dilau did (see MAR). CVICU ZIGZAG STITCHER, Cara Hollis, called. ZIGZAG STITCHER ordered a one time dose of vickie apentin 200mg and PRN IV toadol q 6 hrs. documented in this encounter Miscellaneous Notes * Discharge Planning - Savita Tarango RN - 12/08/2019 10:24 AM CDT Discharge Planning Interventions General Discharge Note Anticipated discharge disposition: Home Self Care DC Wednesday 12/06 Faxed DC Summary to Dr Jacob @ [phone] Nichol Tobar@ [phone]. Radha Tarango RN [facility] [phone] * Nursing Discharge - Dinora Ledezma RN [...] information carefully each time. Talk to your advanced nursing professor regarding the use of this medicine in children. Speci al care may be needed. What side effects may I notice from receiving this medicine? Side effects that you should report to your doctor or health manager primary care as soon as possible: allergic reactions like [...] (report to your doc tor or health manager primary care if they continue or are bothersome): diarrhea hair loss What may interact with this medicine? Do not take this medicine with any of the following medications: agents that prevent or dissolve blood clots aspirin or other salicylates danshen dextrothyroxine mifepristone Tivoli's Wort red yeast rice This medicine may [...] this medicine? Visit your doctor or health manager primary care for regular checks on your progre ss. [...] oft en. Notify your doctor or health manager primary care and seek emergency treatment if you develop [...] phone number of your doctor or health manager primary care or person to contact in an emergency. Do not start taking or stop taking any medicines or ebpo-ome-dzymnbz medicines except on the advice of your doctor or health manager primary care. You should discuss your diet with your doctor or health manager primary care. Do n ot make major changes in [...] risks and her options with her health manager primary care. Avoid sports and activities that might cause injury while you are using this me dicine. Severe falls or injuries can cause unseen bleeding. Be careful when usin g sharp tools or knives. Consider using an electric razor. Take special care bru shing or flossing your teeth. Report any injuries, bruising, or red spots on the skin to your doctor or health manager primary care. If you have an illness that causes [...] ntal work, tell your doctor or health manager primary care that you have been takin g this medicine. NOTE:This sheet is a summary. It may not cover all possible information. If you have questions about this medicine, talk to your doctor, pharmacist, or health care provider. Copyright 2020 [place] [employer] * [place] patient edu - Dinora Ledezma [...] information carefully each time. Talk to your advanced nursing professor regarding the use of this medicine in children. Speci al care may be needed. What side effects may I notice from receiving this medicine? Side effects that you should report to your doctor or health manager primary care as soon as possible: allergic reactions like [...] (report to your doc tor or health manager primary care if they continue or are bothersome): constipation [...] to an official disposal site. Contact the [facility] at or your regional medical center/[facility] government to find a site. If [...] this medicine? Tell your doctor or health manager primary care if your pain does not go away, [...] days, call your docto r or health manager primary care. Your mouth may get dry. Chewing sugarless gum or sucking hard candy, and drinki ng plenty of water may help. Contact your doctor if the problem does not go away or is severe. NOTE:This sheet is a summary. It may not cover all possible information. If you have questions about this medicine, talk to your doctor, pharmacist, or health care provider. Copyright 2020 [employer] * Emiliano patient [facility] - Dinora Ledezma RN - 12/07/2019 12:13 PM CDT 1508 Gabapentin capsules or tablets What is this [...] information carefully each time. Talk to your advanced nursing professor regarding the use of this medicine in children. While this drug may be prescribed for children as young as 3 years for selected condi tions, precautions do apply. What side effects may I notice from receiving this medicine? Side effects that you should report to your doctor or health manager primary care as soon as possible: allergic reactions like skin rash, itching or hives, swelling of the face , lips, or tongue breathing problems suicidal thoughts, mood changes Side effects that usually do not require medical attention (report to your doc tor or health manager primary care if they continue or are bothersome): dizziness [...] this medicine? Visit your doctor or health manager primary care for regular checks on your progre ss. You may want to keep a record at home of how you feel your condition is resp onding to treatment. You may want to share this information with your doctor or health manager primary care at each visit. You should contact your doctor or health manager primary care if your seizures get worse or if you have any new types of se izures. Do not stop taking this medicine or any of your seizure medicines unless instructed by your doctor or health manager primary care. Stopping your medicine s uddenly can increase [...] or dying should be reported to your [facility] manager primary care right away. Women who become while using this medicine may enroll in the [facility] Antiepileptic Drug Registry by calling . This miesha stry collects information about the safety of antiepileptic drug use during preg ching. NOTE:This sheet is a summary. It may not cover all possible information. If you have questions about this medicine, talk to your doctor, pharmacist, or health care provider. Copyright 2020 [employer] * Emiliano patient juan - Elizabeth LedezmaRODNEY vera - 12/07/2019 12:13 PM CDT 55840 Aspirin, ASA chewable tablets What is this [...] o ften than directed. Talk to your advanced nursing professor regarding the use of this medicine in [...] should report to your doctor or health manager primary care as soon as possible: allergic reactions like [...] (report to your doc tor or health manager primary care if they continue or are bothersome): diarrhea [...] if prescribed by your doctor or health manager primary care. Do not take aspirin or aspirin-like medicines [...] pharmacist, or health care provider. Copyright 2020 [place] [employer] * Krames patient edu - Dinora Ledezma [...] on label or package. Talk to your advanced nursing professor regarding the use of this medicine in children. While this drug may be prescribed for children as young as 12 years for selected cond itions, precautions do apply. What side effects may I notice from receiving this medicine? Side effects that you should report to your doctor or health manager primary care as soon as possible: allergic reactions like skin rash, itching or hives, swelling of the face , lips, or tongue breathing problems chest pain or chest tightness dizzines Side effects that usually do not require medical attention (report to your doc tor or health manager primary care if they continue or are bothersome): tingling, [...] without asking your do ctor or health manager primary care. What if I miss a dose? Apply [...] s for which your doctor or health manager primary care has prescribed. NOTE:This sheet is a summary. It may not cover all possible information. If you have questions about this medicine, talk to your doctor, pharmacist, or health care provider. Copyright 2020 [place] [employer] * Emiliano patient [facility] - Dinora Ledezma RN - 12/07/2019 12:13 PM CDT [id number] Hyponatremia Hyponatremia means low sodium levels in [...] confusion Fainting or loss of consciousness Seizure 5767-17[address] [employer] [place] [address] 49 175. All rights reserved. This information is not intended as a substitute for [facility] medical care. Always follow your healthcare professional's instructi ons. * Emiliano patient edu - Dinora Ledezma RN - 12/07/2019 12:13 PM CDT 65406 Eating Heart-Healthy Foods Eating has a big [...] is a unit of energy. Your body roes calorie s for fuel, but if you [...] basil, cilantro, ci nnamon, pepper, and sunny. 5149-0159 [employer]. [address] [place] [address] 78 84. All rights reserved. This information is not intended as a substitute for [facility] medical care. Always follow your healthcare professional's instructi ons. * Emiliano patient edu - Dinora Ledezma RN - 12/07/2019 12:13 PM CDT 36076 Heart Valve Problems: Aortic Stenosis Aortic stenosis [...] valve, even if you dont have symptoms. 7325-[address] [employer]. [address] [place] [address], [place], [place] 190 67. All rights reserved. This [...] support Sari Bhardwaj,PT,DPT Physical Therapist Voalte Number: [phone] * End of Shift Note - Syl [...] INR needs to be sent. Patient from [facility]. Will use local lab. 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 Radha Tarango RN [facility] [phone] * Therapy Note - Jm Araujo PTA [...] . Steven Araujo PTA III Physical Therapist Senior Loss Control Specialist Sharmin phone: [phone] * End of Shift Note - Alma [...] Wm. Steven Araujo PTA III Physical Therapist Senior Loss Control Specialist Sharmin phone: [phone] * Discharge Planning - Savita Tarango RN - 12/04/2019 10:10 AM CDT Discharge Planning Interventions General Discharge Note Anticipated discharge disposition: Home Self Care Additional discharge planning information: POD # 3 Mech AVR Home on coumadin. INR 1.2 Weaning O2 today. PCP Dr Isidra Tobar [facility], Sarahi Castanon Strip Catcher: Sarahi Cohen OR Contact: Dr Tone Medina see patient in [facility]. Contact: Patient'S/O Misty Dave Will provide ride home. Friends will stay with him at time of DC. Plan home self care. Radha Tarango RN [facility] [phone] * End of Shift Note - Alma [...] CG completed, awaiting return page. Repaged at [phone], page returned by Dr Roxane hudson @0422, [...] now 120 s and 140s-150s with activity. ZIGZAG STITCHER notified and ordered a 1x dose of [...] . Steven Araujo PTA III Physical Therapist Senior Loss Control Specialist Sharmin phone: [phone] * End of Shift Note - Mayela [...] Dave via phone as am working re [employer]. S.O lives in separate residence but she and a friend will be providing 24/ a sst at dc. Pt works FT and indep/ active prior to surgery No Hx amb devices/ DME/ Oxygen/ PAC facilities/ rehab PCP confirmed as Nichol Tobar, [facility] , [facility] [place] Strip Catcher noe Jacob, [facility] ; Additional information: Mech AVR. Hx Bicuspid AV/ , AAA, VT/ Ablation RODNEY Goodrich environment coordinator, Cash Applications Representative medical team, Toll Line Repairer met for patient rounds to discuss progression [...] discharge: Family Concerns: No Pt has Payor: [employer] / Plan: OUT OF AREA PREF CARE [...] APRN and dilip ves their [facility] [employer] [place], [place] - [address] [facility] [address] [facility] [address] Facesheet verified. Ericka Woods RN, BSN Toll Line Repairer [phone] * End of Shift Note - Priscilla [...] deep breathing & I.S. use. Transferred to [facility] Goals per Patient Condition Skin Integrity [...] Depression Morbid obesity (HCC) VT (ventricular tachycardia) ([facility]) 05/2018 with aberrancy Patient/Family Reports Pt [...] him upon dc Prior Function Level of [place] Independent with ADLs;Independent with functional transfer s;Independent [...] Denise Malik PT, DPT Physical Therapist Voalte: [phone] * Therapy Note - Denise Malik, PT - 12/02/2019 11:20 AM CDT 12/02/19 1120 PT Visit Info Attempted but was unable to see patient (date) 12/02/19 Reason patient was not seen Pt refused PT reason not seen - extended comment Pt declines and prefers to complete PT rita luation this afternoon. PT will return between 7412-8063. Notified RN of PT plan . Denise Malik PT, DPT Physical Therapist Voalte: [phone] * End of Shift Note - Adair [...] to 4L HFNC . Insulin gtt started. CASHIER CREDIT: 250. UOP: 1.7L. OOBTC @ 1730. Sys [...] tomorrow. Sari Bhardwaj,PT,DPT Physical Therapist Voalte Number: [phone] * Brief Operative Note - Reuebn Li MD - 12/01/2019 12:21 PM CDT Brief Operative Note Trupti Juarez 12/01/2019 Event Time In Procedure / Incision Start 09 Pre-op Diagnosis: Aortic valve stenosis, bicuspid valve Post-op Diagnosis: same Procedure: AORTIC VALVE REPLACEMENT WITH 25MM [facility] JORDAN'S MECHANICAL, N/A ECHOCARDIOGRAM, TRANSESOPHAGEAL, N/A Surgeon(s) and Role: * Traci Li MD - Primary Anesthesia Type: General Staff: Solid State Tester: Cyndy Kendall RN; Melva Nair RN [employer]: Christiano Quinonez CCP Physician Senior Loss Control Specialist: KIM Kessler-C Scrub Person: Estrella Pizano RN Anesthesiologist: Rusty Ventura MD Anesthesiologist Senior Loss Control Specialist: JOSÉ ANTONIO Ron Findings: Estimated Blood Loss: Specimens: . ID Source Type Tests Collected By Collected At 1 Aortic Valve Tissue TISSUE PATHOLOGY OR BIOPSY Reuben Li MD 12/01/19 1038 Description: AORTIC VALVE Comment: Pre-op diagnosis: AORTIC STENOSIS Implants: @ORIMPLANT@ Complications: PPE Statement: 2 chest tubes 1 A and 2 V pacing wires Dictation # [id number] Traci Li Date: 12/01/2019 Time: 12:21 PM * Operative Note - Reuben Li MD - 12/01/2019 12:21 PM CDT Name: TRUPTI JUAREZ MRN: Date of : 1985 Attending Physician: Traci Li MD Date of Procedure: 12/01/2019 DATE OF OPERATION: 12/01/2019 PREOPERATIVE DIAGNOSES: Symptomatic aortic valve stenosis. POSTOPERATIVE DIAGNOSIS: Symptomatic aortic valve stenosis. OPERATION: Aortic valve replacement ([employer]. [employer] [place] mechanical aortic valve, alisson bowles #[id number] serial #[id number]). SURGEON: Dr. Glen Li. SOFTWARE LICENSING ANALYST: KIM Martinez INDICATIONS FOR OPERATION: This 34-year-old [...] of a 25 mm S t. [place] mechanical prosthesis. This valve was calculated to [...] was closed using a combination of #6 [id number] circumferential stainless steel wire and double stranded stainle ss steel wire. The remainder of the incision was closed in layers using absorba ble suture. At the end of the operation, the patient was in normal sinus rhythm with excellent hemodynamics. Traci Li [place] [id number] CC: cc: Tone Medina MD, Reji Jacob [...] Protime 21.1 (H) 11.4 - 15.0 sec [facility] INR 1.9 (H) 0.8 - 1.2 [facility] Specimen Blood Performing Organization Address City/State/[facility] Ph one Number [address] [address] LABORATORIES [facility] [address] [place] [phone] * Basic Metabolic Panel (12/06/2019 12:31 AM CDT) Only the most recent of 4 results within the time period is included. Sodium 134 133 - 147 MEQ/L [facility] Potassium 3.6 3.5 - 5.3 MEQ/L [facility] Chloride 98 96 - 112 MEQ/L [facility] Carbon Dioxide 31 20 - 32 MEQ/L [facility] Anion Gap 4 (L) 5 - 17 [facility] Calcium 8.7 8.4 - 10.5 mg/dL [facility] Glucose 111 (H) 70 - 100 mg/dL [facility] Blood Urea 16 7 - 26 mg/dL [facility] Creatinine 0.8 0.6 - 1.3 mg/dL [facility] eGFR Male AA >130 60 - 200 [facility] mL[facility]min[facility] Lab eGFR Male 112 60 - 200 [facility] Non-AA mL/min/1.73sq m Hospital Lab Specimen Blood Performing Organization Address City/[facility] Cent[facility] Ph one Number [address] [address] LABORATORIES [facility] [address] [place] [address] * Complete Blood Count (12/06/2019 12:31 AM CDT) Only the most recent of 4 results within the time period is included. WBC 9.27 4.00 - 11.00 TH/uL [facility] RBC 3.56 (L) 4.31 - 5.84 MIL/uL [facility] Hemoglobin 10.5 (L) 13.0 - 17.0 g/dL [facility] Hematocrit 30 (L) 40 - 50 % [facility] MCV 83 80 - 99 fL [facility] MCH 30 27 - 34 pg [facility] MCHC 36 32 - 36 % [facility] RDW 12.5 11.5 - 14.5 % [facility] Platelet Count 213 140 - 400 TH/uL [facility] MPV 9.8 9.4 - 12.3 fL [facility] Nucleated RBCs 0 0 - 0 /100 [facility] Specimen Blood Performing Organization Address [facility] Ph one Number [address] [address] LABORATORIES [facility] [address] [place] [address] * Potassium (12/05/2019 12:45 AM CDT) Only the most recent of 4 results within the time period is included. Potassium 3.7 3.5 - 5.3 MEQ/L [facility] Specimen Blood Performing Organization Address City/[facility] Centercode Ph one Number [facility] [address] [address] LABORATORIES [facility] [address] [place] [phone] * XR Chest 2 views (PA and lateral) (12/04/2019 7:12 AM CDT) Specimen Impressions Performed At Left worse than right bibasilar subsegmental atelecta ses. [place] Mildly interstitial pulmonary edema. READING SITE: Home, due to Covid-19 Narrative Performed At Patient: TRUPTI JUAREZ Sex#: M #: [id number] Taylor# : [id number] Location: [address] H410- Acces eduarda#: [id number] Procedure Requested: [id number] XR CHEST 2 VIEWS (PA AND LATERAL) [...] TRUPTI JUAREZ Sex#: M #: 1985 Taylor#: [id number] Location: [address] H410- Procedure Requested: [id number] XR CHEST 2 VIEWS (PA AND LATERAL) [...] Home, due to Covid-19 Performing Organization Address [facility] one Number [place] * Electrocardiogram (ECG) (12/04/2019 3:39 AM CDT) Only the most recent of 2 results within the time period is included. QRSd 102 [facility] QT 328 [facility]AST[facility] QTC 464 [facility] ECGHR 120 [facility] ECGPR 148 [facility]ACEMASTER Specimen Narrative Performed At [facility] [employer] Test Date: 2019-12-04 Pat Name: TRUPTI JUAREZ Department: [address] Room: [facility] Gender: Male [employer]: [id number] : 1985 Requested By: PALMA RAMÍREZ Order Number: [id number] Reading MD: Ronnell Damian Measurements Intervals [place] Rate: 120 P: 37 MI: 148 QRS: 15 QRSD: 102 T: 29 QT: 328 QTc: 464 Interpretive Statements SINUS TACHYCARDIA PROBABLE LEFT VENTRICULAR HYPERTROPHY ST ELEVATION, CONSIDER PERICARDITIS Electronically Signed On 12-04-2019 10:36 :48 CDT by Ronnell Damian Procedure Note Interface, External Ris In - 12/04/2019 10:36 AM CDT [facility] Test Date: 2019-12-04 Pat Name: TRUPTI JUAREZ Department: [address] Room: [facility] Gender: Male [employer]: [id number] : 1985 Requested By: PALMA RAMÍREZ Order Number: [id number] Reading : Ronnell Damian Measurements Intervals [place] Rate: 120 P: 37 MI: 148 QRS: 15 QRSD: 102 T: 29 QT: 328 QTc: 464 Interpretive Statements SINUS TACHYCARDIA PROBABLE LEFT VENTRICULAR HYPERTROPHY ST ELEVATION, CONSIDER PERICARDITIS Electronically Signed On 12-04-2019 10:36:48 CDT by Ronnell Damian Performing Organization Address [facility]/State/Zipcode Ph one Number TRACEMASTER * GLUCOSE POC (12/03/2019 7:42 AM CDT) Only the most recent of 21 results within the time period is included. Glucose POC 134 (H) 70 - 100 mg/dL [facility] Specimen Performing Organization Address City/State/Zipcode Ph one Number [address] [address] LABORATORIES * XR Chest single view frontal [...] JUAREZ Sex#: M #: 1985 Taylor# : [id number] Location: [address] ICU [id number] Access ion#: [id number] Procedure Requested: [id number] XR CHEST SINGLE VIEW FRONTAL Reason for [...] TRUPTI JUAREZ Sex#: M #: 1985 Taylor#: [id number] Location: [address] ICU [id number]-[id number] Procedure Requested: [id number] XR CHEST SINGLE VIEW FRONTAL Reason for [...] Home, due to Covid-19 Performing Organization Address [facility] one Number [place] * HGB/K POC (12/01/2019 1:09 PM CDT) Hemoglobin 15.7 13.0 - 17.0 g/dL [facility] Potassium 5.4 (H) 3.5 - 5.3 MEQ/L [facility] Specimen Performing Organization Address [facility] one Number [address] [phone] LABORATORIES * Lytes//HGB/CA POC (12/01/2019 10:51 AM CDT) Only the most recent of 3 results within the time period is included. [facility] Ionized Calcium 4.3 (L) 4.5 - 5.3 mg/dL [facility] Lab Sodium 132 (L) 133 - 147 MEQ/L [facility] Potassium 6.6 (C) 3.5 - 5.3 MEQ/L [facility] Specimen Arterial Performing Organization Address [facility] one Number [facility] [address] [place] [address] LABORATORIES [facility] [address] [place] [id number] * Arterial Blood Gas + Coox (12/01/2019 10:51 AM CDT) Only the most recent of 3 results within the time period is included. Pathologist [facility] Hemoglobin 12.1 (L) 13.0 - 17.0 g/dL [facility] Blood [facility] Oxyhemoglobin 95.8 95.0 - 100.0 % THB [facility] Lab Carboxyhemoglob 3.4 (H) 0.0 - 1.5 % THB [facility] in [facility] Lab Methemoglobin 0.5 0.0 - 1.5 % THB [facility] Total Oxygen 99.7 95.0 - 100.0 % THB [facility] Saturation [facility] Lab O2 Content 16.7 (L) 17.0 - 100.0 mL/dL [facility] Arterial [facility] Lab PO2 Arterial 177 (H) 80 - 100 mm Hg [facility] Lab pCO2 Arterial 41 35 - 45 mm Hg [facility] Lab pH Arterial 7.31 (L) 7.35 - 7.45 units [facility] Lab Bicarbonate 20.6 19.0 - 29.0 MEQ/L [facility] Lab Base Excess -5.4 (L) -3.0 - 3.0 MEQ/L [facility] Specimen Arterial Performing Organization Address [facility] Ph one Number [address] [address] LABORATORIES [facility] [address] [place] [address] * Tissue Pathology or Biopsy (12/01/2019 10:38 AM CDT) Specimen Tissue - Aortic Valve Narrative Performed At [facility] Pathology Group [facility] SURGICAL PATHOLOGY REPORT PATIENT: TRUPTI JUAREZ /AGE/SEX: 1985 (Age: 34) /M ID #: [id number] SUBMITTING PHYSICIAN: Traci Leiva MD CLIENT: [facility] COLLECTED: 12/01/2019 REPORTED: 12/02/2019 SPECIMEN #: [id number] ##################MICROSCOPIC INTERPRET ATION################## Cardiac aortic valve, excision with noris ve replacement: - Nodular calcification and degen erative change. Melva Benitez M.D. Report Electronically Signed Out CDW:12/02/19 ELISA([facility]) CLINICAL HISTORY/IMPRESSION: Aortic valve. SPECIMEN LABELED: Aortic valve GROSS DESCRIPTION: The specimen is received in neutral buf fered formalin, labeled with the patient name and further designated "aortic noris ve." The specimen consists of a 3.2 x 2.7 x 0.6 cm coughlin-white and rubbery piece of soft tissue. Sectioning reveals a red-yellow, calcified cut surface. Supervisor Testing sections are submitted in cassette A1 after decalcification. (JOURDAN) jourdan Professional Component performed by ELISA , a [place] Pathologist located at [facility], [address] [place] [place] [address] Technical Component performed at [facility] rhett [place] [facility] [address] If immunohistochemical stains and or in situ hybridization are cited in this report, the performance characteristics were determined by [facility] Pathology Group in compliance with CLIA'88 regulations. Some of these tests rely on the use of 'analyte specific reagents' and are subject to specific l abeling requirements by the FDA. Known positive and negative control tissues d emonstrate appropriate staining. Results should be interpreted with caution give n the likelihood of false negativity on decalcified specimens. This testing was developed b sweetie [facility] Pathology Group. It has not been cleared or approved by the FDA. The FDA has determined that such clearance or approval is not necessary. ###END OF REPORT### Performing Organization Address [facility] one Number [place] [address] [place], [place] [phone] * Activated Clotting Time POC (12/01/2019 10:33 AM CDT) Only the most recent of 3 results within the time period is included. Pathologist [facility] Activated 543 (H) 99 - 130 sec [facility] Clotting Time [facility] Specimen Performing Organization Address City/[facility] Ph one Number [facility] [address] [place] [address] LABORATORIES * Retype Patient ABORH (12/01/2019 7:32 AM CDT) Pathologist [facility] ABORH Type A Positive [facility] Confirm Blood Yes [facility] Lab Specimen Blood Performing Organization Address [facility] one Number [facility] [address] [place] [address] LABORATORIES [facility] [address] [place] [address] * Hemoglobin A1C (12/01/2019 7:23 AM CDT) Pathologist [facility] Hemoglobin A1C 5.6 4.0 - 5.6 % [facility] Comment: Hospital Lab Non-diabetic 4.0 - 5.6 % Prediabetes 5.7 - 6.4 % Diabetes >= 6.5 % Specimen Blood Performing Organization Address City[facility] Ph one Number [address] [address] LABORATORIES [facility] [address] [place] [address] * IR Outside images for PACS (12/01/2019 7:23 AM CDT) Specimen Performing Organization Address [facility] one Number [place] * RBCs 2 Units (12/01/2019 7:10 AM CDT) Pathologist [facility] 01 - PRODUCT ID Red Blood Cells [facility] 01 - UNIT [id number] [facility] 01 - CROSS Compatible [facility] 01 - STATUS Ready [facility] 01 - PRODUCT [id number] [facility] 01 - BLOOD TYPE A Pos [facility] 02 - PRODUCT ID Red Blood Cells [facility] 02 - UNIT [id number] [facility] 02 - CROSS Compatible [facility] 02 - STATUS Ready [facility] 02 - PRODUCT [id number] [facility] 02 - BLOOD TYPE A Pos [facility] Specimen Blood Performing Organization Address [facility] one Number [address] [phone] LABORATORIES * Antibody Screen (12/01/2019 7:10 AM CDT) Pathologist [facility] Antibody Screen Negative Negative [facility] Specimen Blood Performing Organization Address City/[facility]/Zipcode Ph one Number [facility] [address] [place] [address] LABORATORIES [facility] [address] [place] [address] * ABORH Type (12/01/2019 7:10 AM CDT) ABORH Type A Positive [facility] Specimen Blood Performing Organization Address City/[facility] Ph one Number [facility] [address] [place] [address] LABORATORIES [facility] [address] [place] [address] * XMATCH (12/01/2019 6:25 AM CDT) Specimen Blood Performing Organization Address [facility] one Number [facility] [address] [place], [place] [address] documented in this encounter [...]
--- OUTSIDE RECORDS SUMMARY | 2019-12-21 20:08 | XMS REPORT | Encounter Summary ---
Author Author [facility] Organization [facility] Address Unknown Phone Unavailable Care Team Providers Care Logging Supervisor Name Role Phone Reji Jacob PCP Encounter Details Care Team Description Date Type Department Encounter for consultation 11/28/2019 Imaging [facility] [...]
--- OUTSIDE RECORDS SUMMARY | 2019-12-21 20:08 | XMS REPORT | Encounter Summary ---
Author Author [facility] Organization [facility] Address Unknown Phone Unavailable Care Team Providers Care Obstetrical Anesthesiologist Name Role Phone Reji Jacob PCP Encounter Details Care Team Description Date Type Department 12/01/2019 Imaging [facility] Virtual Revenu [...]
--- OUTSIDE RECORDS SUMMARY | 2019-12-21 20:09 | XMS REPORT | Encounter Summary ---
Author Author [facility] Organization [facility] Address Unknown Phone Unavailable Care Team Providers Care Shake Cutter Name Role Phone Reji Jacob PCP Encounter Details Care Team Description Date Type Department Encounter for consultation 11/28/2019 Imaging [facility] Virtual Revenu e Appointment [...]
--- OUTSIDE RECORDS SUMMARY | 2019-12-21 20:09 | XMS REPORT | Encounter Summary ---
Author Author [facility] Organization [facility] Address Unknown Phone Unavailable Care Team Providers Care Sole Trimmer Name Role Phone Reji Jacob PCP Encounter Details Care Team Description Date Type Department Encounter for consultation 10/24/[address] [facility] Virtual Revenu e Appointment Location Social History [...] 10/24/2019 Encounte r for PACS 8:03 AM DEVIL TENDER consultation documented in this encounter Results * CT Outside images for PACS (10/24/2019 8:03 AM DEVIL TENDER) Specimen Performing Organization Address City/State/Zipcode Ph one Number [place] documented in this encounter Visit Diagnoses Diagnosis Encounter for consultation documented in this encounter
--- OUTSIDE RECORDS SUMMARY | 2019-12-21 20:09 | XMS REPORT | Encounter Summary ---
Author Author [facility] Organization [facility] Address Unknown Phone Unavailable Care Team Providers Care Egg Grader Name Role Phone Reji Jacob PCP Encounter Details Care Team Description Date Type Department Encounter for consultation 11/28/2019 Imaging [facility] Virtual Revenu e Appointment Location [...]
--- OUTSIDE RECORDS SUMMARY | 2019-12-21 20:09 | XMS REPORT | Encounter Summary ---
Author Author [facility] Organization [facility] Address Unknown Phone Unavailable Care Team Providers Care Auto Body Repairer Name Role Phone Reji Jacob PCP [...]
--- OUTSIDE RECORDS SUMMARY | 2019-12-21 20:09 | XMS REPORT | Encounter Summary ---
Author Author [facility] Organization [facility] Address Unknown Phone Unavailable Care Team Providers Care Fish Cleaner Machine Tender Name Role Phone Reji Jacob PCP Reason for Visit * Reason Comments Correspondence Encounter Details Care Team Description Date Type Department Joe Harris, RODNEY Correspondence 10/22/2019 Telephone [facility] [address] [facility] [address] [place] [address] Social History Date Tobacco Use Types Packs/Day [...] Savita Reyna RN - 10/23/2019 9:32 AM BUSINESS ADMINISTRATION INSTRUCTOR 10/23 call to [facility], spoke with Marsha and she stated that patient was still there and she would speak with Dr Li and call back, Informed her that I left a message for Jazz Becerril about it being approved. NESS ADMINISTRATION INSTRUCTOR * Telephone Encounter - Savita Reyna RN - 10/23/2019 9:28 AM BUSINESS ADMINISTRATION INSTRUCTOR 10/23 message left for Jazz Becerril subcontracts manager for CV imaging scheduling to see if melissa ey have reached out to patient NESS ADMINISTRATION INSTRUCTOR * Telephone Encounter - Korin Rehman RN - 10/22/2019 4:04 PM BUSINESS ADMINISTRATION INSTRUCTOR Zain to patient. Explained that pt will need to have a gated CV CT tomorrow. Pt gave the following info about his insurance. [employer] Group # [id number] [facility] Emailed info to CV Imaging and [employer] so that the CT can be preauthed. Instructed pt that he should be expecting further calls from our office so that he can be looking out for our call. VU. NESS ADMINISTRATION INSTRUCTOR * Telephone Encounter - Joe Harris RN - 10/22/2019 3:12 PM BUSINESS ADMINISTRATION INSTRUCTOR Attempted call to patient again, no answer, VM full. NESS ADMINISTRATION INSTRUCTOR * Telephone Encounter - Joe Harris RN - 10/22/2019 2:44 PM BUSINESS ADMINISTRATION INSTRUCTOR Received VM from patient stating he was returning call and to call back. Remy figueroa call to patient, no answer and VM full. Spoke with Marsha. She reports he d oes have Tereza [employer]ST[employer], she is awaiting correspondence from him with his member ID . Attempted call to patient again, no answer, VM full. NESS ADMINISTRATION INSTRUCTOR * Telephone Encounter - Joe Harris RN - 10/22/2019 1:40 PM BUSINESS ADMINISTRATION INSTRUCTOR Received call from Marsha with CTS/Dr. Li's office ([facility]) to discuss appointment scheduled tomorrow. She does not have imaging of ec ho/cath report from 2019 and CTA from 2018. She will reach out to [facility] for vy ges but may need to [...] back. Discussed with Dr. Medina. He e-mailed [facility] staff who were able to upload to [...] Made call to emergency contact listed on [facility], was able to leave brief message that we are needing to reach patient today a nd for someone to call back. E-mail sent to all parties involved. Checked cloud, only see echo and cath, email sent to [facility] staff. NESS ADMINISTRATION INSTRUCTOR documented in this encounter Plan of Treatment Not on filedocumented as of this encounter Visit Diagnoses Not on filedocumented in this encounter
--- OUTSIDE RECORDS SUMMARY | 2019-12-21 20:09 | XMS REPORT | Encounter Summary ---
Author Author [facility] Organization [facility] Address Unknown Phone Unavailable Care Team Providers Care Explosives Operator Name Role Phone Reji Jacob PCP Encounter Details Care Team Description Date Type Department Encounter for consultation 10/24/2019 Imaging [facility] Virtual [...] 10/24/2019 Encounte r for PACS 8:01 AM PHYSICAL BIOCHEMIST consultation documented in this encounter Results * [place] Outside images for PACS (10/24/2019 8:01 AM PHYSICAL BIOCHEMIST) Specimen Performing Organization Address City/State/Zipcode Ph one Number [place] documented in this encounter Visit Diagnoses Diagnosis Encounter for consultation documented in this encounter
--- OUTSIDE RECORDS SUMMARY | 2019-12-21 20:09 | XMS REPORT | Encounter Summary ---
Author Author [facility] Organization [facility] Address Unknown Phone Unavailable Care Team Providers Care Kinesiologist Name Role Phone Reji Jacob PCP Encounter Details Care Team Description Date Type Department Encounter for consultation 11/28/2019 Imaging [facility] Virtual [...]
--- OUTSIDE RECORDS SUMMARY | 2019-12-21 20:09 | XMS REPORT | Encounter Summary ---
Author Author [facility] Organization [facility] Address Unknown Phone Unavailable Care Team Providers Care Entry Level Receptionist Name Role Phone Reji Jacob PCP Encounter Details Care Team Description Date Type Department Korin Rehman RN 2019 Telephone [facility] [address] [place] [address] Social History Date Tobacco Use Types Packs/Day [...] Korin Rehman RN - 2019 8:26 AM LACER AND TIER Received a VM regarding an upcoming CTS appointment he has scheduled. He wanted to find out the name of the provider. LMTCB R AND TIER documented in this encounter Plan of Treatment Not on filedocumented as of this encounter Visit Diagnoses Not on filedocumented in this encounter
--- OUTSIDE RECORDS SUMMARY | 2019-12-21 20:09 | XMS REPORT | Encounter Summary ---
Author Author [facility] Organization [facility] Address Unknown Phone Unavailable Care Team Providers Care Sports Development Officer Name Role Phone Reji Jacob PCP Encounter Details Care Team Description Date Type Department Encounter for consultation 11/28/2019 Imaging [facility] Virtual Revenu [...]
--- OUTSIDE RECORDS SUMMARY | 2019-12-21 20:09 | XMS REPORT | Encounter Summary ---
Author Author [facility] Organization [facility] Address Unknown Phone Unavailable Care Team Providers Care Field Crop Ii Farmworker Name Role Phone Reji Jacob PCP Encounter Details Care Team Description Date Type Department Encounter for consultation 10/24/2019 Imaging [facility] Virtual Revenu e Appointment Location Social [...] 10/24/2019 Encounte r for PACS 8:02 AM AMBULANCE DRIVER PARAMEDIC consultation documented in this encounter Results * CT Outside images for PACS (10/24/2019 8:02 AM AMBULANCE DRIVER PARAMEDIC) Specimen Performing Organization Address City/State/Zipcode Ph one Number [place] documented in this encounter Visit Diagnoses Diagnosis Encounter for consultation documented in this encounter
--- OUTSIDE RECORDS SUMMARY | 2019-12-21 20:09 | XMS REPORT | Encounter Summary ---
Author Author [facility] Organization [facility] Address Unknown Phone Unavailable Care Team Providers Care Hand Tool Lapper Name Role Phone Reji Jacob PCP Encounter [...] 10/24/2019 Encounte r for PACS 8:03 AM MOUNTAIN GUIDE consultation documented in this encounter Results * CT Outside images for PACS (10/24/2019 8:03 AM MOUNTAIN GUIDE) Specimen Performing Organization Address City/State/Zipcode Ph one Number [place] documented in this encounter Visit Diagnoses Diagnosis Encounter for consultation documented in this encounter
--- OUTSIDE RECORDS SUMMARY | 2019-12-21 20:09 | XMS REPORT | Encounter Summary ---
Author Author [facility] Organization [facility] Address Unknown Phone Unavailable Care Team Providers Care Box Estimator Name Role Phone Reji Jacob PCP Encounter Details Care Team Description Date Type Department Encounter for consultation 10/24/[address] [facility] Virtual Revenu [...] 10/24/2019 Encounte r for PACS 8:00 AM SHOP HAND consultation documented in this encounter Results * CT Outside images for PACS (10/24/2019 8:00 AM SHOP HAND) Specimen Performing Organization Address City/State/Zipcode Ph one Number [place] documented in this encounter Visit Diagnoses Diagnosis Encounter for consultation documented in this encounter
--- OUTSIDE RECORDS SUMMARY | 2019-12-21 20:09 | XMS REPORT | Encounter Summary ---
Author Author [facility] Organization [facility] Address Unknown Phone Unavailable Care Team Providers Care Grader Operator Name Role Phone Reji Jacob PCP [...] 10/24/2019 Encounte r for PACS 7:59 AM ORDAINED MINISTER consultation documented in this encounter Results * CT Outside images for PACS (10/24/2019 7:59 AM ORDAINED MINISTER) Specimen Performing Organization Address City/State/Zipcode Ph one Number [place] documented in this encounter Visit Diagnoses Diagnosis Encounter for consultation documented in this encounter
--- OUTSIDE RECORDS SUMMARY | 2019-12-21 20:09 | XMS REPORT | Encounter Summary ---
Author Author [facility] Organization [facility] Address Unknown Phone Unavailable Care Team Providers Care Pet Feeder Name Role Phone Reji Jacob PCP Encounter Details Care Team Description Date Type Department Encounter for consultation 10/24/2019 Imaging [facility] Virtual [...] 10/24/2019 Encounte r for PACS 8:02 AM REFRIGERATED COMPANY DRIVER consultation documented in this encounter Results * CT Outside images for PACS (10/24/2019 8:02 AM REFRIGERATED COMPANY DRIVER) Specimen Performing Organization Address City/State/Zipcode Ph one Number [place] documented in this encounter Visit Diagnoses Diagnosis Encounter for consultation documented in this encounter
--- OUTSIDE RECORDS SUMMARY | 2019-12-21 20:09 | XMS REPORT | Encounter Summary ---
Author Author [facility] Organization [facility] Address Unknown Phone Unavailable Care Team Providers Care Pulp Mill Team Leader Name Role Phone Reji Jacob PCP Encounter Details Care Team Description Date Type Department Encounter for consultation 10/22/2019 Imaging [facility] Virtual Revenu e [...] 10/22/2019 Encounte r for PACS 3:23 PM EMERGENCY PREPAREDNESS MANAGER consultation documented in this encounter Results * IR Outside images for PACS (10/22/2019 3:23 PM EMERGENCY PREPAREDNESS MANAGER) Specimen Performing Organization Address City/State/Zipcode Ph one Number [place] documented in this encounter Visit Diagnoses Diagnosis Encounter for consultation documented in this encounter
--- OUTSIDE RECORDS SUMMARY | 2019-12-21 20:09 | XMS REPORT | Encounter Summary ---
Author Author [facility] Organization [facility] Address Unknown Phone Unavailable Care Team Providers Care Lining Stamper Name Role Phone Reji Jacob PCP Encounter Details Care Team Description Date Type Department Encounter for consultation 11/28/2019 Imaging [facility] Virtual Revenu [...]
--- OUTSIDE RECORDS SUMMARY | 2019-12-21 20:09 | XMS REPORT | Encounter Summary ---
Author Author [facility] Organization [facility] Address Unknown Phone Unavailable Care Team Providers Care Puncher Name Role Phone Reji Jacob PCP Encounter [...]
--- OUTSIDE RECORDS SUMMARY | 2019-12-21 20:09 | XMS REPORT | Encounter Summary ---
Author Author [facility] Organization [facility] Address Unknown Phone Unavailable Care Team Providers Care Combining Machine Operator Name Role Phone Reji Jacob [...] 10/22/2019 Encounte r for PACS 3:24 PM BUILDING INSPECTION ENGINEER consultation documented in this encounter Results * [place] Outside images for PACS (10/22/2019 3:24 PM BUILDING INSPECTION ENGINEER) Specimen Performing Organization Address City/State/Zipcode Ph one Number [place] documented in this encounter Visit Diagnoses Diagnosis Encounter for consultation documented in this encounter
--- OUTSIDE RECORDS SUMMARY | 2019-12-21 20:09 | XMS REPORT | Encounter Summary ---
Author Author [facility] Organization [facility] Address Unknown Phone Unavailable Care Team Providers Care Meat Team Member Name Role Phone Reji Jacob PCP Encounter Details Care Team Description Date Type Department Encounter for consultation 11/28/2019 Imaging [facility] Virtual Revenu e Appointment Location [...]
--- OUTSIDE RECORDS SUMMARY | 2019-12-21 20:09 | XMS REPORT | Encounter Summary ---
Author Author [facility] Organization [facility] Address Unknown Phone Unavailable Care Team Providers Care President Of The [place] Name Role Phone Reji Jacob PCP Encounter Details Care Team Description Date Type Department Encounter for consultation 10/24/2019 Imaging [facility] Virtual Revenu e [...] 10/24/2019 Encounte r for PACS 8:01 AM FIELD SERVICE SUPERVISOR consultation documented in this encounter Results * IR Outside images for PACS (10/24/2019 8:01 AM FIELD SERVICE SUPERVISOR) Specimen Performing Organization Address City/State/Zipcode Ph one Number [place] documented in this encounter Visit Diagnoses Diagnosis Encounter for consultation documented in this encounter
--- OUTSIDE RECORDS SUMMARY | 2019-12-21 20:09 | XMS REPORT | Encounter Summary ---
Author Author [facility] Organization [facility] Address Unknown Phone Unavailable Care Team Providers Care Artificial Flowers Dyer Name Role Phone Reji Jacob PCP Encounter Details Care Team Description Date Type Department Encounter for consultation 10/24/2019 Imaging [facility] Virtual Revenu e Appointment Location Social [...] 10/24/2019 Encounte r for PACS 8:00 AM HEAT SET OPERATOR consultation documented in this encounter Results * CT Outside images for PACS (10/24/2019 8:00 AM HEAT SET OPERATOR) Specimen Performing Organization Address City/State/Zipcode Ph one Number [place] documented in this encounter Visit Diagnoses Diagnosis Encounter for consultation documented in this encounter
--- OUTSIDE RECORDS SUMMARY | 2019-12-21 20:09 | XMS REPORT | Encounter Summary ---
Author Author [facility] Organization [facility] Address Unknown Phone Unavailable Care Team Providers Care Manager Safe Name Role Phone Reji Jacob PCP Encounter Details Care Team Description Date Type Department Encounter for consultation 10/24/2019 Imaging [facility] Virtual Revenu [...] 10/24/2019 Encounte r for PACS 8:04 AM PRINT DECORATOR consultation documented in this encounter Results * [place] Outside images for PACS (10/24/2019 8:04 AM PRINT DECORATOR) Specimen Performing Organization Address City/State/Zipcode Ph one Number [place] documented in this encounter Visit Diagnoses Diagnosis Encounter for consultation documented in this encounter
--- OUTSIDE RECORDS SUMMARY | 2019-12-21 20:09 | XMS REPORT | Encounter Summary ---
Author Author [facility] Organization [facility] Address Unknown Phone Unavailable Care Team Providers Care Surveillance System Monitor Name Role Phone Reji Jacob PCP Encounter Details Care Team Description Date Type Department Encounter for consultation 11/28/2019 Imaging [facility] Virtual Revenu e [...]
--- OUTSIDE RECORDS SUMMARY | 2019-12-21 20:09 | XMS REPORT | Encounter Summary ---
Author Author [facility] Organization [facility] Address Unknown Phone Unavailable Care Team Providers Care Service Desk Associate Name Role Phone Reji Jacob PCP Encounter Details Care Team Description Date Type Department Encounter for consultation 11/28/2019 Imaging [facility] Virtual Revenu e Appointment Location [...]
--- OUTSIDE RECORDS SUMMARY | 2019-12-21 20:09 | XMS REPORT | Encounter Summary ---
Author Author [facility] Organization [facility] Address Unknown Phone Unavailable Care Team Providers Care Manager Apple Name Role Phone Reji Jacob PCP Encounter Details Care Team Description Date Type Department Encounter for consultation 10/22/[address] [facility] Virtual Revenu e Appointment Location Social [...] 10/22/2019 Encounte r for PACS 3:22 PM GOVERNMENT OPERATIONS CONSULTANT consultation documented in this encounter Results * CT Outside images for PACS (10/22/2019 3:22 PM GOVERNMENT OPERATIONS CONSULTANT) Specimen Performing Organization Address City/State/Zipcode Ph one Number [place] documented in this encounter Visit Diagnoses Diagnosis Encounter for consultation documented in this encounter
--- OUTSIDE RECORDS SUMMARY | 2019-12-21 20:09 | XMS REPORT | Encounter Summary ---
Author Author [facility] Organization [facility] Address Unknown Phone Unavailable Care Team Providers Care Housing Assistant Property Manager Name Role Phone Reji Jacob PCP Encounter Details Care Team Description Date Type Department Encounter for consultation 10/22/[address] [facility] [...] 10/22/2019 Encounte r for PACS 3:21 PM PRESS OPERATOR ASSISTANT consultation documented in this encounter Results * IR Outside images for PACS (10/22/2019 3:21 PM PRESS OPERATOR ASSISTANT) Specimen Performing Organization Address City/State/Zipcode Ph one Number [place] documented in this encounter Visit Diagnoses Diagnosis Encounter for consultation documented in this encounter
--- OUTSIDE RECORDS SUMMARY | 2019-12-21 20:09 | XMS REPORT | Encounter Summary ---
Author Author [facility] Organization [facility] Address Unknown Phone Unavailable Care Team Providers Care Erector Operator Name Role Phone Reji Jacob PCP [...] 10/22/2019 Encounte r for PACS 3:21 PM HEARING HEALTH TECHNICIAN consultation documented in this encounter Results * [place] Outside images for PACS (10/22/2019 3:21 PM HEARING HEALTH TECHNICIAN) Specimen Performing Organization Address City/State/Zipcode Ph one Number [place] documented in this encounter Visit Diagnoses Diagnosis Encounter for consultation documented in this encounter
--- OUTSIDE RECORDS SUMMARY | 2019-12-21 20:09 | XMS REPORT | Encounter Summary ---
Author Author [facility] Organization [facility] Address Unknown Phone Unavailable Care Team Providers Care Needle Leader Name Role Phone eRji Jacob PCP Encounter Details Care Team Description [...] 10/24/2019 Encounte r for PACS 8:15 AM APPLIANCE MECHANIC consultation documented in this encounter Results * CT Outside images for PACS (10/24/2019 8:15 AM APPLIANCE MECHANIC) Specimen Performing Organization Address City/State/Zipcode Ph one Number [place] documented in this encounter Visit Diagnoses Diagnosis Encounter for consultation documented in this encounter
--- OUTSIDE RECORDS SUMMARY | 2019-12-21 20:10 | XMS REPORT | Encounter Summary ---
Author Author [facility] Organization [facility] Address Unknown Phone Unavailable Care Team Providers Care Manager Diversity Name Role Phone PCP Unavailable Encounter Details Care Team Description Date Type Department Tone Medina MD [address] [place] [address] [phone] 08/27/2019 Orders Only [facility] [address] [place] [address] Social History Date Tobacco Use Types Packs/Day [...]
--- OUTSIDE RECORDS SUMMARY | 2019-12-21 20:10 | XMS REPORT | Encounter Summary ---
Author Author [facility] Organization [facility] Address Unknown Phone Unavailable Care Team Providers Care Surveying Crew Rodman Name Role Phone Reji Jacob PCP Encounter Details Care Team Description Date Type Department Tone Medina MD [address] [place] [address] [phone] 09/02/2019 Documentation [facility] [address] [place] [address] Social History Date Tobacco Use Types Packs/Day [...]
--- OUTSIDE RECORDS SUMMARY | 2019-12-21 20:10 | XMS REPORT | Encounter Summary ---
Author Author [facility] Organization [facility] Address Unknown Phone Unavailable Care Team Providers Care Medical Certification Specialist Name Role Phone Reji Jacob PCP Reason for Referral * Surgical (Routine) Referred By Contact Referred To Contact Status Reason Specialty Diagnoses / Procedures Tone Medina MD [address] [place] [address] Reuben Li MD [address] [facility] [place] [address] Authorized Specialty Services Cardiothoracic Diagnoses Required Surgery Ascending aorta dilatation (HCC) Aortic stenosis due to bicuspid aortic valve * MRI/CAT/PET Scan (Routine) Referred By Contact Referred To Contact Status Reason Specialty Diagnoses / Procedures Tone Medina MD [address] [place] [address] [facility] [address] [place] [address] Closed Cardiology Diagnoses Ascending aorta dilatation (HCC) Aortic stenosis due to bicuspid aortic valve P rocedures CV CT Heart gated study Reason for Visit * Reason Comments Correspondence Encounter Details Care Team Description Date Type Department Savita Reyna, RN Correspondence 08/29/2019 Telephone [facility] [address] [address] [place] [address] Social History Date Tobacco Use Types Packs/Day [...] Tone Medina MD - 09/19/2019 12:03 AM LAB SUPPORT SERVICE TECH This is definitely not in media SUPPORT SERVICE TECH * Telephone Encounter - Joe Moore RN - 09/18/2019 2:36 PM LAB SUPPORT SERVICE TECH Spoke with Sindy with chart analysts. SVT ablation is available in care everywher e under documents from [facility]. Date is 10/04/18, type is clinical document only an d provider is Cecilio Verdugo. Routing. SUPPORT SERVICE TECH * Addendum Note - Joe Moore RN - 09/17/2019 4:00 PM LAB SUPPORT SERVICE TECH Addended by: JOE MOORE on: 09/17/2019 04:00 PM Modules accepted: Orders, SmartSet SUPPORT SERVICE TECH * Telephone Encounter - Joe Moore RN - 09/17/2019 3:39 PM LAB SUPPORT SERVICE TECH Received call from patient wanting to schedule with Dr. Li. Discussed thi s is with [facility] and provided him number of their office, that they are separate of fice. Placed on hold and discussed with Dr. Guillermo Larson's MA. She never re ceived referral, note this was not entered. Apologized for this, she asked it b e faxed to [phone] attention to her. She states she can offer him 10/23 or 10/27. Transferred call. Referral placed and faxed with confirmation fax receiv ed. SUPPORT SERVICE TECH * Telephone Encounter - Pauly Beal LPN - 09/17/2019 2:11 PM LAB SUPPORT SERVICE TECH Received call from patient stating he had SVT ablation done in 10/[address] Verdugo at [facility] in [place]. I stated I will be routing a message to art sas analyst to request records. He v/u. ARoss SUPPORT SERVICE TECH * Telephone Encounter - Savita Reyna RN - 09/05/2019 3:29 PM LAB SUPPORT SERVICE TECH 10/06/19 THIRD attempt to reach to ask if he was able to find out where this docto r was SUPPORT SERVICE TECH * Telephone Encounter - Savita Reyna RN - 09/04/2019 11:42 AM LAB SUPPORT SERVICE TECH 09/04/19 SECOND attempt to reach, he stated that he would have to call Dr Barber ( ?SP) the EP at [facility] in [place] to get name and location of where he had it done and will call us back. SUPPORT SERVICE TECH * Telephone Encounter - Joe Moore RN - 09/02/2019 11:26 AM LAB SUPPORT SERVICE TECH Spoke with Sindy. She received correspondence from [facility] in [place] rubi t they do not have patient in their record. Note in care everywhere just see th at he had SVT ablation done in [place]. Will call patient to see where had ab lation at and then send back to Sindy to request. Made call to patient and left b [facility] message to return call. SUPPORT SERVICE TECH * Addendum Note - Korin Farnsworth RN - 09/01/2019 11:15 AM LAB SUPPORT SERVICE TECH Addended by: KORIN FARNSWORTH on: 09/01/2019 11:15 AM Modules accepted: Orders, SmartSet SUPPORT SERVICE TECH * Telephone Encounter - Korin Farnsworth RN - 09/01/2019 9:10 AM LAB SUPPORT SERVICE TECH Called Dr. Glen Li's office ph # [phone]. Dr. Li's nurse will be contacting pt to set up appointment for after 08-17-19. She will be back on . They will access pt's outside records through [employer]. No need to fax. CV CT heart gated ordered. LMTCB with pt for more info about VT ablation records. Routed to [facility] to obtain VT ablation records from [facility] in [place], [place]. SUPPORT SERVICE TECH * Telephone Encounter - Savita Reyna RN - 08/29/2019 4:42 PM LAB SUPPORT SERVICE TECH ----- Message from Tone Medina MD sent at 08/29/2019 9:22 AM LAB SUPPORT SERVICE TECH ----- I just saw him in [place] - he needs to see Dr Glen [...] to get his VT ablation records from [place] (please contact him to get release ) and get it to me for review. I will have echo CDs that need to be loaded for me and Dr Li to review as well - will give to you on Sunday. Thx. SUPPORT SERVICE TECH documented in this encounter Plan of Treatment [...]
--- OUTSIDE RECORDS SUMMARY | 2019-12-21 20:10 | XMS REPORT | Encounter Summary ---
Author Author [facility] Organization [facility] Address Unknown Phone Unavailable Care Team Providers Care Cook Manager Name Role Phone Reji Jacob PCP Reason for Visit * Reason Comments Aortic stenosis Encounter Details Care Team Description Date Type Department Tone Medina MD [address] [facility] [address] [place] [address] [phone] Anxiety (Primary Dx); Ascending aorta dilatation (HCC); Aortic stenosis due to bicuspid aortic valve; Morbid obesity (HCC); VT (ventricular tachycardia) (HCC); Hypersomnolence; Cigarette nicotine dependence without complication 08/25/2019 Initial consult [facility] [address] [place] [address] [address] [place], [place] [address] Social History Date Tobacco Use Types Packs/Day [...] Comments Vital Sign 124/9 08/29/2019 8:48 AM SECURITY MANAGEMENT SPECIALIST Blood Pressure 80 08/29/2019 8:48 AM SECURITY MANAGEMENT SPECIALIST Pulse - - Temperature - - Respiratory Rate 96% 08/29/2019 8:48 AM SECURITY MANAGEMENT SPECIALIST Oxygen Saturation - - Inhaled Oxygen Concentration 140.6 kg (310 lb) 08/29/2019 8:48 AM SECURITY MANAGEMENT SPECIALIST Weight 180.3 cm (5' 11") 08/29/2019 8:48 AM SECURITY MANAGEMENT SPECIALIST Height 43.24 08/29/2019 8:48 AM SECURITY MANAGEMENT SPECIALIST Body Mass Index documented in this encounter Progress Notes * Tone Medina MD - 08/29/2019 8:00 AM SECURITY MANAGEMENT SPECIALIST [facility] [facility] Appointment Date: 08/29/2019 Reji Jacob MD [address] [place] [phone] RE: Carlos Parrish : 1985 Visit provider: [...] pleasure of meeting him today in the [place] [facility]. His history dates back to 2017, when he presented with ventricular tachycardia w ith a heart rate of 260. He was cardioverted. This was in May 2018. In July 2018, he had another episode of ventricular tachycardia requiring defib rillation. Interestingly, a defibrillator was never offered and he was told by Dr. Barber that he had to go to [facility] in [facility] for ablation. This happened in October 2018. He had a loop monitor placed by Dr. Mesa in [place], [place] subsequently. He has had episodes almost [...] List Diagnosis SNOMED CT(R) VT (ventricular tachycardia) ([facility]) VENTRICULAR TACHYCARDIA Morbid obesity (HCC) MORBID OBESITY Aortic stenosis due to bicuspid aortic valve CONGENITAL STENOSIS OF AORTIC V ALVE Ascending aorta dilatation (HCC) ASCENDING AORTA DILATATION Anxiety ANXIETY Hypersomnolence HYPERSOMNIA Cigarette nicotine dependence without complication NICOTINE DEPENDENCE Past Medical History: Diagnosis Date Anxiety Aortic stenosis due to bicuspid aortic valve Mean AoV gradient 45 07/22 Ascending aorta dilatation ([facility]) 06/2019 5.0 cm ascending aorta; 3.5 cm at sinuses of Valsalva Depression Morbid obesity ([facility]) VT (ventricular tachycardia) ([facility]) 05/2018 with aberrancy Past Surgical History: Procedure Laterality Date CARDIAC CATHETERIZATION 05/21/2018 normal cors. dilated ascending aorta (47 mm in diameter) CARDIAC CATHETERIZATION 07/10/2019 Performed in [place]. Normal coronaries. ELECTROPHYSIOLOGY STUDY WITH POSSIBLE RFA OF VT 10/2018 Performed at [place] IMPLANTABLE LOOP RECORDER PLACEMENT Performed in [place], [place] RIGHT HEART CATHETERIZATION 07/10/2019 Performed in [place]. RA 14 RV 37/14 PA 39/13/28 PCWP [...] undergo a split night sleep study in [place] as soon as possible. I told parvin [...] I need to get some records from [place] to see what type of ventricular tachycardia [...] of my colleagues at [facility] to see what their o [...] so he does not run up his [facility] bills any more. I have not [...] Medina MD /mimi cc: Traci Li MD RITY MANAGEMENT SPECIALIST documented in this encounter Plan of [...]
--- OUTSIDE RECORDS SUMMARY | 2019-12-21 20:10 | XMS REPORT | Encounter Summary ---
Author Author [facility] Organization [facility] Address Unknown Phone Unavailable Care Team Providers Care Reclamation Furnace Operator Name Role Phone PCP Unavailable Encounter Details Care Team Description Date Type Department Tone Medina MD [address] [place] [address] [phone] 08/19/2019 Documentation [facility] [address] [place] [address] Social History Date Tobacco Use Types Packs/Day [...]
--- OUTSIDE RECORDS SUMMARY | 2019-12-21 20:10 | XMS REPORT | Encounter Summary ---
Author Author [facility] Organization [facility] Address Unknown Phone Unavailable Care Team Providers Care Cobol Developer Name Role Phone PCP Unavailable Encounter Details Care Team Description Date Type Department Sindy John RN 08/26/2019 Abstract [facility] [address] [place] [address] Social History Date Tobacco Use Types Packs/Day [...] car otid artery stenosis. Antegrade vertebral flow. ([facility]) * CV US Lower Extremity Arterial Duplex Outside Record (07/17/2019) Impressions Performed At Right: No evidence of active arterial bleed, or obstruction in common femoral artery. No evidence of deep shane ous thrombosis in the common femoral vein. ([facility]) * Coronary Angiogram Outside Record (07/10/2019) Impressions [...] hypertension. See report abo ve for details. ([facility]) * Basic Metabolic Panel (07/10/2019) [facility] [...] n ow estimated to be 5.0 cm. [facility] * XR Outside Record (07/31/2018) Impressions Performed At Negative for acute infiltrate. [facility] * CT Outside Record (05/22/2018) Impressions Performed At 1. 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 No other aneurysm. No dissection or atheromatous disease. 2. Small calcifications of the aortic valve. 3. Otherwise, normal study. ([facility]) * Coronary Angiogram Outside Record (05/21/2018) Impressions [...] diameter. B. The left anterior descending coron mikhali artery starts out about a 4.5 mm [...] discussed above. 4. See report for details. ([facility]) * Echo Outside Record (05/21/2018) Ejection Fraction [...] aorta about 44 mm in diameter . ([facility]) documented in this encounter Visit Diagnoses Diagnosis SVT (supraventricular tachycardia) (HCC ) Other specified cardiac dysrhythmias Morbid obesity (HCC) Morbid obesity Bicuspid aortic valve Congenital insufficiency of aortic valv e Ascending aorta dilatation (HCC) Thoracic aneurysm without mention of ru pture Anxiety Anxiety state, unspecified documented in this encounter
[2019-12-21] MEDS ORDERED: NS IV 1000 ML 1,000 ML IV SCH ×4 (20:12→21:58)
--- OUTSIDE RECORDS SUMMARY | 2019-12-21 20:13 | XMS REPORT | Continuity of Care Document ---
Demographics Preferred Language Unknown Marital Status Unknown Worship Affiliation Unknown Race Unknown Ethnic Group Unknown Author Organization Unknown Address Unknown Phone Unavailable Allergies Active Description Code Type Severity Reaction Onset Reported/Identified Relationship to Patient Clinical Status Yes No Known Drug Allergies [id number] Drug Allergy Mild N/A 01/01/2019 Medications There [...] .8 OTHER NONRHEUMATIC AORTIC VALVE DISORDER 10/07/2018 SADIE BADILLO FACC, SHEFALI LEONARDP CCDS Ot I47.1 SUPRAVENTRICULAR TACHYCARDIA 10/07/2018 SHEFALI NOEL MD, FACC FACP CCDS Ot Z87.891 PERSONAL HISTORY OF NICOTINE DEPENDENCE 10/07/2018 SADIE BADILLO FACC, SHEFALI FACP CCDS Ot I47.1 SUPRAVENTRICULAR TACHYCARDIA 10/07/2018 SADIE BADILLO FACC, SHEFALI FACP CCDS Ot Z87.891 PERSONAL HISTORY OF NICOTINE DEPENDENCE 10/09/2018 SADIE BADILLO FACC, SHEFALI FACP CCDS Ot I47.1 SUPRAVENTRICULAR TACHYCARDIA 10/09/2018 SHEFALI NOEL MD, FACC FACP CCDS Ot Z87.891 PERSONAL HISTORY OF NICOTINE DEPENDENCE 10/09/2018 SHEFALI NOEL MD, FACC FACP CCDS Ot I47.1 SUPRAVENTRICULAR TACHYCARDIA 10/09/2018 SADIE MD FACC, ALI FACP CCDS Ot Z87.891 PERSONAL HISTORY OF NICOTINE DEPENDENCE 10/21/2018 GATITO BADILLO, Yessi BURTON Ot R00 .2 PALPITATIONS 11/06/2018 SANDRITA BUTLER MD Ot F12.10 CANNABIS ABUSE, UNCOMPLICATED 11/06/2018 SANDRITA BUTLER MD Ot F17.210 NICOTINE DEPENDENCE, CIGARETTES, UNCOMPL 11/06/2018 SANDRITA BUTLER MD Ot G43.909 MIGRAINE, UNSP, NOT INTRACTABLE, WITHOUT 11/06/2018 SANDRITA BUTLER MD Ot R51 HEADACHE 11/06/2018 SANDRITA BUTLER MD Ot Z82.49 FAMILY HX OF ISCHEM HEART DIS AND OTH DI 11/06/2018 SANDRITA BUTLER MD Ot Z86.69 PERSONAL HISTORY OF DIS OF THE NERVOUS S 11/06/2018 MAGUI URIBE MD Ot I35 .8 OTHER NONRHEUMATIC AORTIC VALVE DISORDER 11/06/2018 Yessi MEDEROS MD Ot R00 .2 PALPITATIONS 11/08/2018 SANDRITA BUTLER MD Ot F12.10 CANNABIS ABUSE, UNCOMPLICATED 11/08/2018 SANDRITA BUTLER MD Ot F17.210 NICOTINE DEPENDENCE, CIGARETTES, UNCOMPL 11/08/2018 SANDRITA BUTLER MD Ot G43.909 MIGRAINE, UNSP, NOT INTRACTABLE, WITHOUT 11/08/2018 SANDRITA BUTLER MD Ot R51 HEADACHE 11/08/2018 SANDRITA BUTLER MD Ot Z82.49 FAMILY HX OF ISCHEM HEART DIS AND OTH DI 11/08/2018 SANDRITA BUTLER MD Ot Z86.69 PERSONAL HISTORY OF DIS OF THE NERVOUS S 01/01/2019 KERVIN MUNOZ MD Ot E78. 00 PURE HYPERCHOLESTEROLEMIA, UNSPECIFIED 01/01/2019 KERVIN MUNOZ MD Ot F17.210 NICOTINE DEPENDENCE, CIGARETTES, UNCOMPL 01/01/2019 KERVIN MUNOZ MD Ot G43.909 MIGRAINE, UNSP, NOT INTRACTABLE, WITHOUT 01/01/2019 KERVIN MUNOZ MD Ot I48. 91 UNSPECIFIED ATRIAL FIBRILLATION 01/01/2019 [...] PALPITATIONS 01/02/2019 Yessi MEDEROS MD Ot Z79.82 NURSING HOME (CURRENT) USE OF ASPIRIN 01/02/2019 Yessi MEDEROS MD Ot Z79.899 OTHER NURSING HOME (CURRENT) DRUG THERAPY 01/02/2019 KERVIN MUNOZ MD [...] MD Ot F12.10 CANNABIS ABUSE, UNCOMPLICATED 01/03/2019 SANDRITA BUTLER MD Ot F17.210 NICOTINE DEPENDENCE, CIGARETTES, UNCOMPL 01/03/2019 CARRIE BADILLO, SANDRITA Dickson Ot G43.909 MIGRAINE, UNSP, NOT INTRACTABLE, WITHOUT 01/03/2019 ASNDRITA BUTLER MD Ot R51 HEADACHE 01/03/2019 SANDRITA BUTLER MD Ot Z82.49 FAMILY HX OF ISCHEM HEART DIS AND OTH DI 01/03/2019 CARRIE BADILLO, SANDRITA Dickson Ot Z86.69 PERSONAL HISTORY OF DIS OF THE NERVOUS S 01/03/2019 KERVIN MUNOZ MD Ot E78. 00 PURE HYPERCHOLESTEROLEMIA, UNSPECIFIED 01/03/2019 TAMMY BADILLO, KERVIN J Ot F17.210 NICOTINE DEPENDENCE, CIGARETTES, UNCOMPL 01/03/2019 KERVIN MUNOZ MD Ot G43.909 MIGRAINE, UNSP, NOT INTRACTABLE, WITHOUT 01/03/2019 TAMMY BADILLO, KERVIN J Ot I48. 91 UNSPECIFIED ATRIAL FIBRILLATION 01/03/2019 GREGORIA MUNOZ MDUS J Ot M25.512 PAIN IN LEFT SHOULDER 01/03/2019 GREGORIA MUNOZ MDUS J Ot M54. 6 PAIN IN THORACIC SPINE 01/03/2019 GREGORIA MUNOZ MDUS J Ot R07. 9 CHEST PAIN, UNSPECIFIED 01/03/2019 TAMMY BADILLO, KERVIN J Ot X50.0XXA OVEREXERTION FROM STRENUOUS MOVEMENT OR 01/03/2019 KERVIN MUNOZ MD J Ot Z82. 49 FAMILY HX OF ISCHEM HEART DIS AND OTH DI 01/05/2019 GATITO BADILLO, Yessi BURTON Ot R00 .2 PALPITATIONS 01/06/2019 KERVIN MUNOZ MD Ot E78. 00 PURE HYPERCHOLESTEROLEMIA, UNSPECIFIED 01/06/2019 KERVIN MUNOZ MD J Ot F12. 10 CANNABIS ABUSE, UNCOMPLICATED 01/06/2019 KERVIN MUNOZ MD J Ot F17.210 NICOTINE DEPENDENCE, CIGARETTES, UNCOMPL 01/06/2019 KERVIN MUNOZ MD Ot G43.909 MIGRAINE, UNSP, NOT INTRACTABLE, WITHOUT 01/06/2019 GREGORIA MUNOZ MDUS J Ot I48. 91 UNSPECIFIED ATRIAL FIBRILLATION 01/06/2019 KERVIN MUNOZ MD J Ot R42 DIZZINESS AND GIDDINESS 01/06/2019 KERVIN MUNOZ MD J Ot Z82. 49 [...] 01/06/2019 GATITO BADILLO, Yessi BURTON Ot Z79.82 PRODUCT SAFETY HEAD (CURRENT) USE OF ASPIRIN 01/06/2019 GATITO BADILLO, Yessi BURTON Ot Z79.899 OTHER PRODUCT SAFETY HEAD (CURRENT) DRUG THERAPY 04/30/2019 MIKEL CASTLE MD [...] MD Ot F41.9 ANXIETY DISORDER, UNSPECIFIED 05/02/2019 IMKEL CASTLE MD Ot G43.909 MIGRAINE, UNSP, NOT INTRACTABLE, WITHOUT 05/02/2019 MIKEL CASTLE MD Ot I48.91 UNSPECIFIED ATRIAL FIBRILLATION 05/02/2019 MIKEL CASTLE MD Ot R07.2 PRECORDIAL PAIN 05/02/2019 MIKEL CASTLE MD Ot Z82.49 FAMILY HX OF ISCHEM HEART DIS AND OTH DI 05/24/2019 HINA JORGE MD Ot E78. 00 PURE HYPERCHOLESTEROLEMIA, UNSPECIFIED 05/24/2019 [...] MIGRAINE, UNSP, NOT INTRACTABLE, WITHOUT 05/27/2019 HINA OJRGE MD Ot I48. 91 UNSPECIFIED ATRIAL FIBRILLATION 05/27/2019 HINA JORGE MD Ot R07. 9 CHEST PAIN, UNSPECIFIED 05/27/2019 HINA JORGE MD Ot Z82. 49 FAMILY HX OF ISCHEM HEART DIS AND OT DI 05/30/2019 HINA JORGE MD Ot E78. [...] FAMILY HX OF ISCHEM HEART DIS AND OT DI 07/12/2019 RONY BADILLO, MAGUI Bueno Ot [...] ISCHEM HEART DIS AND OTH DI 07/15/2019 HNIA JORGE MD Ot E78. 00 PURE HYPERCHOLESTEROLEMIA, [...] AND OTH DI 11/17/2019 RONY BADILLO, MAGUI Bueno Ot I35 .8 [...] UNSPECIFIED ATRIAL FIBRILLATION 11/18/2019 MAJOR CORRALES MD J Ot I71. 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 9 GASTRO-ESOPHAGEAL REFLUX DISEASE WITHOUT 11/18/2019 MAJOR CORRALES MD Ot M54. 9 DORSALGIA, UNSPECIFIED 11/18/2019 MAJOR CORRALES MD Ot Q23. 1 CONGENITAL INSUFFICIENCY OF AORTIC VALVE 11/18/2019 MAJOR CORRALES MD Ot R07. 1 CHEST PAIN ON BREATHING 11/18/2019 MAJOR CORRALES MD J Ot Z79.899 OTHER PRODUCT SAFETY HEAD (CURRENT) DRUG THERAPY 11/18/2019 MAJOR CORRALES MD [...] 9 DORSALGIA, UNSPECIFIED 11/18/2019 MAJOR CORRALES MD J Ot Q23. 1 CONGENITAL INSUFFICIENCY OF AORTIC VALVE 11/18/2019 MAJOR CORRALES MD J Ot R07. 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 11/28/2019 Yessi MEDEROS MD Ot Z11 .2 ENCOUNTER FOR SCREENING FOR OTHER BACTER 11/28/2019 Yessi MEDEROS MD Ot Z79.899 OTHER NURSING HOME (CURRENT) DRUG THERAPY 12/18/2019 [facility], KARINA Ventura Ot E78.00 PURE HYPERCHOLESTEROLEMIA, UNSPECIFIED 12/18/2019 [facility], KARINA Ventura Ot F17.210 NICOTINE DEPENDENCE, CIGARETTES, UNCOMPL 12/18/2019 [facility], KARINA Ventura Ot G89.29 OTHER CHRONIC PAIN 12/18/2019 [facility], KARINA Ventura Ot I48.91 UNSPECIFIED ATRIAL FIBRILLATION 12/18/2019 [facility], KARINA Ventura Ot I51.7 CARDIOMEGALY 12/18/2019 [facility], KARINA Ventura Ot J98.11 ATELECTASIS 12/18/2019 [facility], KARINA Ventura Ot M54.9 DORSALGIA, UNSPECIFIED 12/18/2019 [facility], KARINA Ventura Ot R07.89 OTHER CHEST PAIN 12/18/2019 [facility], KARINA Ventura Ot R07.9 CHEST PAIN, UNSPECIFIED 12/18/2019 [facility], KARINA Ventura Ot Z95.2 PRESENCE OF PROSTHETIC HEART VALVE Procedures There is no data. Results Test Result Range CBC+Platelet+Hem Review - 10/16/16 15:48 WBC 6.3 x10E3/uL 3.4-10.8 RBC 5.61 x10E6/uL 4.14-5.80 Hemoglobin 16.6 g/dL 12.6-17.7 Hematocrit 48.2 % 37.5-51.0 MCV 86 fL 79-97 MCH 29.6 pg 26.6-33.0 MCHC 34.4 g/dL 31.5-35.7 RDW 13.2 % 12.3-15.4 Platelets 171 x10E3/uL 150-379 Neutrophils 71 % Lymphs 25 % Monocytes 2 % Eos 2 % Basos 0 % Neutrophils Absolute 4.5 X10E3/uL 1.4-7. 0 Lymphs (Absolute) 1.6 X10E3/uL 0.7-3.1 Monocytes(Absolute) 0.1 X10E3/uL 0.1-0.9 Eos (Absolute Value) 0.1 X10E3/uL 0.0-0. 4 Baso(Absolute) 0.0 X10E3/uL 0.0-0.2 Differential Comment Note: RBC Comment Note: Normal Platelet Comment Note: Adequate Comp. Metabolic Panel (14) - 10/16/16 15 :48 Glucose, Serum 94 mg/dL 65-99 BUN 9 mg/dL 6-20 Creatinine, Serum 0.73 mg/dL 0.76-1.27 eGFR If NonAfricn Am 125 mL/min/1.73 >59 eGFR If Africn Am 145 mL/min/1.73 >5 9 BUN/Creatinine Ratio 12 8-19 Sodium, Serum 141 mmol/L 134-144 Potassium, Serum 4.0 mmol/L 3.5-5.2 Chloride, Serum 100 mmol/L 96-106 Carbon Dioxide, Total 22 mmol/L 18-29 Calcium, Serum 8.9 mg/dL 8.7-10.2 Protein, Total, Serum 7.0 g/dL 6.0-8.5 Albumin, Serum 4.2 g/dL 3.5-5.5 Globulin, Total 2.8 g/dL 1.5-4.5 A/G Ratio 1.5 1.1-2.5 Bilirubin, Total 0.4 mg/dL 0.0-1.2 Alkaline Phosphatase, S 60 IU/L 39-117 AST (SGOT) 22 IU/L 0-40 ALT (SGPT) 19 IU/L 0-44 Magnesium, Serum - 10/16/16 15:48 Magnesium, Serum 2.0 mg/dL 1.6-2.3 Complete blood count (CBC) with automate d [...] mg/dL 5-40 Automated blood complete blood count (he mogram) panel - 11/27/19 07:35 Blood leukocytes [...] aureus (MRSA) scr eening culture NEG NRG Complete blood count (CBC) with automate d white blood cell (WBC) differential - 12/17/19 23:31 Blood leukocytes automated count (number/volume) 6.7 10*3/uL 4.3-11.0 Blood erythrocytes automated count (number/volume) 3.75 10*6/uL 4.35-5.85 Venous blood hemoglobin measurement (mass/volume) 10.5 g/dL 13.3-17.7 Blood hematocrit (volume fraction) 31 % 40-54 Automated erythrocyte mean corpuscular volume 82 [ foz_us] 80-99 Automated erythrocyte mean corpuscular h emoglobin (mass per erythrocyte) 28 pg 25-34 Automated erythrocyte mean corpuscular h emoglobin concentration measurement (mass/volume) 34 g/dL 32-36 Automated erythrocyte distribution width ratio 12. 6 % 10.0- 14.5 Automated blood platelet count (count/volume) 309 10*3/uL 130-400 Automated blood platelet mean volume measurement 9.6 [foz_us] 7.4-10.4 Automated blood neutrophils/100 leukocytes 75 % 42-75 Automated blood lymphocytes/100 leukocytes 14 % 12-44 Blood monocytes/100 leukocytes 8 % 0-12 Automated blood eosinophils/100 leukocytes 2 % 0-10 Automated blood basophils/100 leukocytes 1 % 0-10 Blood neutrophils automated count (number/volume) 5.0 10*3 1.8-7.8 Blood lymphocytes automated count (number/volume) 0.9 10*3 1.0-4.0 Blood monocytes automated count (number/volume) 0. 6 10*3 0.0-1.0 Automated eosinophil count 0.1 10*3/uL 0 .0-0.3 Automated blood basophil count (count/volume) 0.0 10*3/uL 0.0-0.1 PT panel in platelet poor plasma by coag ulation assay - 12/17/19 23:31 Prothrombin time (PT) in platelet poor plasma by coagu lation assay 23.5 s 12.2-14.7 INR in platelet poor plasma or blood by coagulation as say 2.0 0.8-1.4 Activated partial thromboplastin time (a PTT) in platelet poor plasma bycoagulation assay - 12/17/19 23:31 Activated partial thromboplastin time (a PTT) in platelet poor plasma bycoagulation assay 50 s 24-35 TROPONIN I FS - 12/17/19 23:31 TROPONIN I FS < 0.30 <0.30 Comprehensive metabolic panel - 12/17/19 23:31 Serum or plasma sodium measurement (moles/volume) 136 mmol/L 135-145 Serum or plasma potassium measurement (moles/volume) 4.0 mmol/L 3.6-5.0 Serum or plasma chloride measurement (moles/volume) 101 mmol/L 98-107 Carbon dioxide 23 mmol/L 21-32 [...] plasma calcium measurement (mass/volume) 8.9 mg/dL 8.5-10.1 Serum or plasma total bilirubin measurement (mass/volu me) 0.5 mg/dL 0.1-1.0 Serum or plasma alkaline phosphatase rojelio surement (enzymatic activity/volume) 78 U/L 40-136 Serum or plasma aspartate aminotransfera se measurement (enzymatic activity/volume) 16 U/L 5-34 Serum or plasma alanine aminotransferase measurement (enzymatic activity/volume) 20 U/L 0-55 Serum or plasma protein measurement (mass/volume) 6.5 g/dL 6.4-8.2 Serum or plasma albumin measurement (mass/volume) 3.8 g/dL 3.2-4.5 CALCIUM CORRECTED 9.1 mg/dL 8.5-10.1 Magnesium - 12/17/19 23:31 Magnesium 1.9 mg/dL 1.6-2.4 Myoglobin, serum - 12/17/19 23:31 Myoglobin, serum < ng/mL 10.0-92.0 Streptococcus pyogenes antigen detection - 12/17/19 23:55 Streptococcus pyogenes antigen detection NEGATIVE NEGATIVE Influenza virus A and B antigen detectio n - 12/17/19 23:55 FLU RESULT NEGATIVE FOR INFLUENZA A AND B ANTIGENS BY IA NRG Bacterial throat culture - 12/17/19 23:5 5 Bacterial throat culture NBS NRG TROPONIN I FS - 12/18/19 02:05 TROPONIN I FS < 0.30 <0.30 Encounters ACCT No. Visit Date/Time Discharge Status Pt. Type Provider Facility Loc./Unit Complaint [id number] 10/17/2016 17:07:00 Document Registration [id number] 12/17/2019 23:15:00 02:47:00 DIS Outpatient SADIQ GOMEZ KARINA Ventura [facility] ER FS CHEST PAIN [id number] 11/27/2019 07:12:00 14:55:00 DIS Outpatient Yessi MEDEROS MD [facility] CATH CHEST PAIN [id number] 11/17/2019 21:10:00 10:15:00 DIS Inpatient ANTONI BADILLO, MAJOR Portillo [facility] ICU CHEST PAIN,INTERMITTENT JUNCTIONAL RHYTHM,AORTIC A [id number] 08/16/2019 17:37:00 19:43:00 DIS Emergency DANISH PARKER MD [facility] ER FS NECK/SHOULDER PAIN [id number] 07/12/2019 16:25:00 20:01:00 DIS Emergency HINA JORGE MD [facility] ER FS JAW PAIN [id number] 05/24/2019 19:18:00 21:52:00 DIS Emergency HINA JORGE MD [facility] ER FS CHEST PAIN [id number] 04/30/2019 13:21:00 17:20:00 DIS Emergency MIKEL CASTLE MD [facility] ER CHEST PAIN [id number] 01/06/2019 15:30:00 23:59:59 CLS Preadmit Yessi MEDEROS MD [facility] CARD PALPITATION [id number] 10/31/2018 12:17:00 00:01:00 DIS Outpatient Yessi MEDEROS MD [facility] CARD PALPITATION [id number] 01/02/2019 12:28:00 05/02/2 019 14:05:00 DIS Emergency TAMMY BADILLO, KERVIN Portillo [facility] ER FELT "POP" IN CHEST [id number] 01/02/2019 08:22:00 019 10:23:00 DIS Outpatient GATITO BADILLO, Yessi BURTON [facility] CATH PALPITATIONS,PSVT [id number] 01/01/2019 07:28:00 12:00:00 DIS Emergency TAMMY BADILLO, KERVIN Portillo [facility] ER LT SHOULDER INJ [id number] 11/06/2018 05:23:00 06:35:00 DIS Emergency CARRIE BADILLO, SANDRITA Dickson [facility] ER FS MIGRAINE [id number] 10/06/2018 18:02:00 019 14:19:00 DIS Inpatient SADIE BADILLO FACC, SHEFALI FACP CCD S [facility] ICU SVT,CHEST PAIN [id number] 11/09/2017 10:00:00 018 23:59:59 CLS Preadmit GATITO BADILLO, Yessi BURTON [facility] CARD CARDIAC MURMUR [id number] 06/22/2017 13:00:00 017 23:59:59 CLS Preadmit GATITO BADILLO, Yessi BURTON [facility] CARD AORTIC STENOSIS,CARDIAC MURMUR,OBESITY,TOBACCO USE [id number] 10/19/2016 10:02:00 017 23:59:59 CLS Outpatient MAGUI URIBE MD [facility] CARD HEART MURMUR,AORTIC [id number] 10/22/2019 13:00:00 10/22/2019 23:59:5 9 CLS Outpatient YESSENIA HARDING [facility] [id number] 11/20/2018 13:15:00 Document Registration
[2019-12-21] MEDS ORDERED: meTOprolol 5 MG/5 ML (LOPRESSOR) VIAL IV ONE (20:15)
[2019-12-21] MEDS ORDERED: ADENOSINE 6 MG/2 ML (ADENOCARD) VIAL IV ONE ×3 (20:22→20:45)
--- NOTE | 2019-12-21 20:22 | ED Cardiac General ---
History of Present Illness General Chief Complaint: Chest Wall Stated Complaint: RAPID HR Source: patient Exam Limitations: no limitations History of Present Illness Date Seen by Provider: Dec 21, 2019 Time Seen by Provider: 20:03 Initial Comments Patient presents to ER by private conveyance with chief complaint of mild sh ortness of air and racing heart rate. He measured his pulse at 177 home. He says he laid down this afternoon to take a nap and when he woke up he felt like his heart was beating really fast. This has happened in the past and he's had episodes of SVT. He does not have AICD. He says he is 2 weeks out from bicuspid valve replacement. He is on warfarin. He was here 2 days ago for similar chest wall pain related to his surgery. He had clean heart catheter R . He's having no fevers or cough. He's been taking all his medications routinely. He's expected to take 200 mg metoprolol XL tonight but has not taken it yet. No increased swelling in hands or feet. 2 days ago he had labs and x-ray workup in the ER there were unremarkable. He follows with [facility] and Dr. Mesa. Allergies and Home Medications Allergies Coded Allergies: No Known Drug Allergies (Unverified , 01/01/19) Home Medications Acetaminophen 325 Mg Tablet, 325 MG PO PRN, (Reported) Metoprolol Succinate 100 Mg Tab.er.24h, 100 MG PO DAILY Prescribed by: ALEXUS MAHMOOD on 10/07/18 1431 Patient Home Medication List Home Medication List Reviewed: Yes Review of Systems Review of Systems Constitutional: No chills, No diaphoresis EENTM: No Blurred Vision, No Double Vision Respiratory: Denies Cough; Shortness of Air, SOA With Exertion, SOA at Rest; Denies Wheezing Cardiovascular: See HPI; Denies Chest Pain, Denies Edema, Denies Irregular Heart Rate, Denies Lightheadedness; Palpitations; Denies Syncope Gastrointestinal: Denies Constipated, Denies Diarrhea, Denies Nausea Genitourinary: Denies Burning, Denies Discharge Musculoskeletal: No back pain, No joint pain Psychiatric/Neurological: Denies Anxiety, Denies Depressed All Other Systems Reviewed Negative Unless Noted: Yes Past Cxzuekt-Jdqagu-Rqnnki Hx Patient Social History Alcohol Use: Denies Use Recreational Drug Use: Yes Drug of Choice: marijuana Type Used: Cigarettes 2nd Hand Smoke Exposure: No Recent Foreign Travel: No Contact w/Someone Who Travel: No Recent Hopitalizations: Yes Physical Abuse: No Sexual Abuse: No Mistreated: No Fear: No Immunizations Up To Date Tetanus Booster (TDap): Less than 5yrs Date of Influenza Vaccine: Jun 03, 2019 Seasonal Allergies Seasonal Allergies: No Past Medical History Surgeries: Yes (ablation-svt/a-fib, LOOP RECORDER 01/02/19) Cardiac, Tonsillectomy Respiratory: No Cardiac: Yes (ascending aortic aneurysm, bicuspid valve dysfunction, V-tach) Aneurysm, Atrial Fibrillation, Heart Murmur, High Cholesterol, Irregular Heartbeat, Palpitations Neurological: Yes Headaches /Migraines Genitourinary: No Gastrointestinal: No Musculoskeletal: Yes Chronic Back Pain Endocrine: No HEENT: No Cancer: No Psychosocial: No Integumentary: No Blood Disorders: No Adverse Reaction/Blood Tranf: No Family Medical History Hypertension Physical Exam Vital Signs Vital Signs - First Documented 12/21/19 20:27 Temp 36.1 Pulse 174 Resp 18 B/P (MAP) 98/62 (74) Pulse Ox 96 O2 Delivery Room Air Capillary Refill : Height, Weight, BMI Height: 5'11.00" Weight: 308lbs. 0.0oz. 139.569343gc; 42.00 BMI Method:Stated General Appearance: WD/WN, Anxious, Moderate Distress HEENT: PERRL/EOMI, Pharynx Normal Neck: Full Range of Motion, Normal Inspection Respiratory: Lungs Clear, Normal Breath Sounds, No Accessory Muscle Use, No Respiratory Distress Cardiovascular: Regular Rate, Rhythm, No Edema, Normal Peripheral Pulses, Tachycardia (160) Gastrointestinal: Normal Bowel Sounds, Non Tender, Soft Extremity: Normal Capillary Refill, Normal Inspection, Normal Range of Motion Neurologic/Psychiatric: Alert, Oriented x3 Skin: Normal Color, Diaphoresis Procedures/Interventions Lumen: triple Central Line Procedure: betadine prep (chlorhexidine prep), sterile drapes applied, sterile dressing applied Position: internal jugular (R) Anesthesia: Lidocaine Volume Anesthetic (ccs): 3 Complications: none Post Position: sutured, good blood return, position confirmed w/ CXR Patient was explained the risks, benefits and alternatives and he accepted them signing a consent. We donned sterile garb and draped in the usual sterile fashion. Took a look with the ultrasound and is running a good access on the right internal jugular. He was a little flaccid so we put him into Trendelenburg. Another liter of fluids was ordered for a total of 3 L. About 1- 1/2 L total was in. After the chlorhexidine had a chance to dry we infiltrated with 3 cc of lidocaine. We then used the introducer needle to gain access under ultrasound guidance to the right internal jugular. We passed a guidewire easily on first attempt without ectopy on the monitor. Made a small 2 mm incision in the skin at the base of the introducer needle using the supplied 11 blade scalp el. We then withdrew the introducer needle. We passed the dilator and removed that. We then took the previously flushed triple lumen catheter and placed the central lumen over the guidewire. We threaded down to 14 cm. We removed the guidewire and easily flushed and withdrew blood from the central lumen. The 21 m 7 Marshallese triple-lumen catheter was then sutured in place 2 different places using the supplied hardware and abraded suture. Put the bile patch on. We placed a sterile dressing and sent the patient down for x-ray. Portable x-ray is down at this time. Additional Procedures: cardioversion/defib Progress 2029: Attempt chemical cardioversion using Adenocard 6 mg which slowed his heart rate down but did not stop it. 2034: We gave him a 12 mg bolus which slowed his heart rate down revealing a sawtooth underlying atrial flutter pattern. Progress/Results/Core Measures Results/Orders Lab Results Laboratory Tests Test 12/21/19 20:15 Range/Units White Blood Count 8.2 4.3-11.0 10^3/uL Red Blood Count 4.30 L 4.35-5.85 10^6/uL Hemoglobin 11.7 L 13.3-17.7 G/DL Hematocrit 35 L 40-54 % Mean Corpuscular Volume 81 80-99 FL Mean Corpuscular Hemoglobin 27 25-34 PG Mean Corpuscular Hemoglobin Concent 34 32-36 G/DL Red Cell Distribution Width 12.8 10.0-14.5 % Platelet Count 332 130-400 10^3/uL Mean Platelet Volume 9.5 7.4-10.4 FL Neutrophils (%) (Auto) 68 42-75 % Lymphocytes (%) (Auto) 22 12-44 % Monocytes (%) (Auto) 8 0-12 % Eosinophils (%) (Auto) 2 0-10 % Basophils (%) (Auto) 0 0-10 % Neutrophils # (Auto) 5.5 1.8-7.8 X 10^3 Lymphocytes # (Auto) 1.8 1.0-4.0 X 10^3 Monocytes # (Auto) 0.6 0.0-1.0 X 10^3 Eosinophils # (Auto) 0.2 0.0-0.3 10^3/uL Basophils # (Auto) 0.0 0.0-0.1 10^3/uL Prothrombin Time 20.6 H 12.2-14.7 SEC INR Comment 1.7 H 0.8-1.4 Sodium Level 139 135-145 MMOL/L Potassium Level 3.7 3.6-5.0 MMOL/L Chloride Level 101 98-107 MMOL/L Carbon Dioxide Level 22 21-32 MMOL/L Anion Gap 16 H 5-14 MMOL/L Blood Urea Nitrogen 9 7-18 MG/DL Creatinine 0.77 0.60-1.30 MG/DL Estimat Glomerular Filtration Rate > 60 BUN/Creatinine Ratio 12 Glucose Level 122 H 70-105 MG/DL Calcium Level 9.4 8.5-10.1 MG/DL Corrected Calcium 9.6 8.5-10.1 MG/DL Total Bilirubin 0.4 0.1-1.0 MG/DL Aspartate Amino Transf (AST/SGOT) 19 5-34 U/L Alanine Aminotransferase (ALT/SGPT) 23 0-55 U/L Alkaline Phosphatase 86 40-136 U/L Troponin I < 0.30 <0.30 NG/ML C-Reactive Protein 5.67 H <0.50 MG/DL Pro-B-Type Natriuretic Peptide 633.6 H <75.0 PG/ML Total Protein 7.2 6.4-8.2 GM/DL Albumin 3.8 3.2-4.5 GM/DL My Orders Orders - KERVIN MUNOZ Continuous Ekg Monitoring (12/21/19 20:01) Ekg Tracing (12/21/19 20:01) Metoprolol Tartrate Injection (Lopressor (12/21/19 20:15) Ed Iv/Invasive Line Start (12/21/19 20:12) Ns Iv 1000 Ml (Sodium Chloride 0.9%) (12/21/19 20:12) Cbc With Automated Diff (12/21/19 20:12) Comprehensive Metabolic Panel (12/21/19 20:12) Crp Fs (12/21/19 20:12) Protime With Inr (12/21/19 20:12) Troponin I Fs (12/21/19 20:12) Probnp Fs (12/21/19 20:12) Chest 1 View Ap/Pa Only (12/21/19 20:12) Adenosine Injection (Adenocard Injection (12/21/19 20:30) Adenosine Injection (Adenocard Injection (12/21/19 20:22) Adenosine Injection (Adenocard Injection (12/21/19 20:45) Ed Iv/Invasive Line Start (12/21/19 20:47) Ns Iv 1000 Ml (Sodium Chloride 0.9%) (12/21/19 20:47) Diltiazem Drip Pre-Mix (Cardizem Drip Pr (12/21/19 21:00) Amiodarone For Bolus (Cordarone Bolus) (12/21/19 21:00) Amiodarone Injection (Cordarone Injectio (12/21/19 21:00) Ns Iv 1000 Ml (Sodium Chloride 0.9%) (12/21/19 21:30) Chest 1 View Ap/Pa Only (12/21/19 21:47) Enoxaparin Injection (Lovenox Injection) (12/21/19 22:00) Enoxaparin Injection (Lovenox Injection) (12/21/19 22:00) Ed Iv/Invasive Line Start (12/21/19 21:58) Normal Saline 1l Bolus (12/21/19 21:58) Medications Given in ED Current Medications Medications Dose Ordered Sig/Helder Route Start Time Stop Time Status Last Admin Dose Admin Adenosine 6 mg ONCE ONCE IV 12/21/19 20:30 12/21/19 20:31 DC 12/21/19 20:32 6 MG Adenosine 12 mg ONCE ONCE IV 12/21/19 20:45 12/21/19 20:46 DC 12/21/19 20:35 12 MG Amiodarone HCl 150 mg/Dextrose 103 ml @ 600 mls/hr ONCE ONCE IV 12/21/19 21:00 12/21/19 21:10 DC 12/21/19 21:05 600 MLS/HR Metoprolol Tartrate 5 mg ONCE ONCE IV 12/21/19 20:15 12/21/19 20:16 DC 12/21/19 20:22 5 MG Vital Signs/I&O 12/21/19 12/21/19 20:27 21:05 Temp 36.1 Pulse 174 160 Resp 18 B/P (MAP) 98/62 (74) 82/56 Pulse Ox 96 O2 Delivery Room Air Progress Progress Note #1: Time: 20:21 Progress Note Patient appears to be having an SVT. His blood pressure is soft around 100 systolic. Really give him a liter of fluids and 5 metoprolol. His PT/INR was 2.0 which should protect him against pulmonary embolism just 2 days ago. He had a normal heart catheter couple weeks ago. He does have a questionable descending aortic aneurysm to consider. He has good breath sounds on both sides and is satting in the upper 90s on room air. Pneumothorax therefore much less likely. He's not had a cough fever so pneumonia bronchitis or infectious seems less likely. We'll put him on 2 L by nasal cannula just to help support him since he is sweating and working hard with his heart rate being so fast. Plan to give him his long-acting dose of metoprolol as well. Progress Note #2: Time: 21:49 Progress Note We did discuss the severity of the patient's illness at this time and how his blood pressure is a major concern. If it goes any lower and does not begin to improve then he may have to have an urgent/emergent cardioversion. He would likely have to be done by [facility] and this carries with it a risk for stroke since he is subtherapeutic on his warfarin. We will give him Lovenox now. His been explained that this could happen at any time throughout the night and the patient says he understands that and agrees that there is little choice if he needs cardioverted emergently. He is okay with doing urgent cardioversion by [facility] if indicated. Initial ECG Impression Date: Dec 21, 2019 Initial ECG Impression Time: 20:03 Initial ECG Rate: 170 Initial ECG Rhythm: S.Tach Initial ECG Intervals: Normal Initial ECG Impression: Nonspecific Changes Initial ECG Comparisson: Changed Comment Sinus tachycardia. Narrow complex QRS, regular, normal morphology P waves. Diagnostic Imaging Diagonstic Imaging: Xray Plain Films/CT/US/NM/MRI: chest (1 view) Comments Unremarkable, unchanged one view chest x-ray compared to the . [facility] [place], [place] NAME: TRUPTI JUAREZ [facility] REC#: [id number] PT STATUS: REG ER : 1985 PHYSICIAN: KERVIN MUNOZ MD ADMIT DATE: 12/21/19/ER FS Draft Date of Exam:12/21/19 CHEST 1 VIEW AP/PA ONLY INDICATION: Tachycardia, post recent cardiac valve replacement. TECHNIQUE: Single view chest 8:21 p.m. CORRELATION STUDY: 12/17/2019. FINDINGS: Prior sternotomy changes with cardiac valve prosthesis. Unchanged severity cardiac enlargement. Mediastinal configuration stable. Vasculature overall within normal limits with likely areas of atelectasis in the perihilar and basilar region. No definitive infiltrate. Unchanged asymmetry of the left diaphragm. IMPRESSION: 1. Post sternotomy and cardiac valve prosthesis. Stable severity cardiac enlargement without failure. 2. New areas of atelectasis in the perihilar and basilar regions. Dictated on workstation # [id number] Dict: 12/21/192045 Trans: 12/21/192112 [facility] [id number] Interpreted by: WAN SCHULTZ DO Electronically signed by: Reviewed: Reviewed by Me Diagonstic Imaging: Xray Plain Films/CT/US/NM/MRI: chest Comments Central line in good placement with the tip terminating over the shadow this. Vena cava just above the right atria. Does not cross the midline. No evidence pneumothorax. No other acute cardiopulmonary process. Stable enlarged heart and sternotomy wire changes. Reviewed: Reviewed by Me Consults : Consulting Physician: Yessi MESA MD Consults Notes Discussed the case with Dr. Mesa and he recommends Adenocard to identify the underlying rhythm. 2044: We sent a copy of the EKGs for cardiology to review. He recommends Cardizem and amiodarone. He says if the medications are unsuccessful so we'll h ave to use [facility] cardioversion so he would have to be transferred to [place]. Patient's blood pressure remains soft. A second liter fluids as ordered. His PT/INR is 1.7 today which is subtherapeutic. Plan to give him Lovenox 130 mg. Plan to establish a central line. After reviewing the imaging the small brake form operator agrees that it is flutter. Departure Communication (Admissions) Time/Spoke to Admitting Phy: 21:43 Dr Elizabeth: Discussed the case and she accepts the patient to the ICU. Cardiology consult. Time/Spoke to Consulting Phy: 21:45 Dr Mesa: Discussed the case and he agrees to consult and see the patient in the morning. He wants us to specifically talk about the risk for a possible urgent/emergent cardioversion by [facility] and the risk involved including up to stroke. He agrees with Lovenox. Impression Primary Impression: Atrial fibrillation with rapid ventricular response Disposition: ADMITTED INPATIENT Condition: Critical Admissions Decision to Admit Reason: Admit from ER (General) Decision to Admit/Date: Dec 21, 2019 Time/Decision to Admit Time: 21:50 Departure-Patient Inst. Referrals: [facility]/JENNIFER (PCP) Primary Care Physician YESSENIA HARDING APRN (Family) Primary Care Physician KERVIN MUNOZ Dec 21, 2019 20:22
[2019-12-21 20:24] LABS: WHITE BLOOD COUNT 8.2 10^3/uL (4.3-11.0)
[2019-12-21 20:25] LABS: BASOPHILS % (AUTO) 0 % (0-10); EOSINOPHILS # (AUTO) 0.2 10^3/uL (0.0-0.3); EOSINOPHILS % (AUTO) 2 % (0-10); HEMATOCRIT 35 % (40-54); HEMOGLOBIN 11.7 G/DL (13.3-17.7); LYMPHOCYTES # (AUTO) 1.8 X 10^3 (1.0-4.0); LYMPHOCYTES % (AUTO) 22 % (12-44); MEAN CORPUSCULAR HEMOGLOBIN 27 PG (25-34); MEAN CORPUSCULAR HGB CONC 34 G/DL (32-36); MEAN CORPUSCULAR VOLUME 81 FL (80-99); MEAN PLATELET VOLUME 9.5 FL (7.4-10.4); MONOCYTES # (AUTO) 0.6 X 10^3 (0.0-1.0); MONOCYTES % (AUTO) 8 % (0-12); NEUTROPHILS # (AUTO) 5.5 X 10^3 (1.8-7.8); NEUTROPHILS % (AUTO) 68 % (42-75); PLATELET COUNT 332 10^3/uL (130-400); RED CELL DISTRIBUTION WIDTH 12.8 % (10.0-14.5)
[2019-12-21 20:37] LABS: INR 1.7 (0.8-1.4); PROTHROMBIN TIME PATIENT 20.6 SEC (12.2-14.7)
[2019-12-21 20:43] LABS: POTASSIUM 3.7 MMOL/L (3.6-5.0); SODIUM 139 MMOL/L (135-145)
[2019-12-21 20:44] LABS: ALANINE AMINOTRANSFERASE 23 U/L (0-55); ALBUMIN 3.8 GM/DL (3.2-4.5); ALKALINE PHOSPHATASE 86 U/L (40-136); BILIRUBIN,TOTAL 0.4 MG/DL (0.1-1.0); BUN/CREATININE RATIO 12; CALCIUM 9.4 MG/DL (8.5-10.1); CARBON DIOXIDE 22 MMOL/L (21-32); CHLORIDE 101 MMOL/L (98-107); CREATININE SERUM 0.77 MG/DL (0.60-1.30); GFR ESTIMATED > 60; GLUCOSE 122 MG/DL (70-105); TOTAL PROTEIN 7.2 GM/DL (6.4-8.2)
[2019-12-21] MEDS ORDERED: AMIODARONE FOR BOLUS 150 MG in D5W 100 ML IVPB 100 ML IV ONE (21:00)
[2019-12-21] MEDS: dilTIAZem DRIP PRE-MIX 125 ML IV SCH ×2 (21:11→23:52)
[2019-12-21] MEDS: AMIODARONE INJECTION 450 MG in D5W IV SOLUTION (EXCEL) 250 ML IV SCH (21:12)
--- NOTE | 2019-12-21 21:13 | Diagnostic Imaging Report ---
INDICATION: Tachycardia, post recent cardiac valve replacement. TECHNIQUE: Single view chest 8:21 p.m. CORRELATION STUDY: 12/17/2019. FINDINGS: Prior sternotomy changes with cardiac valve prosthesis. Unchanged severity cardiac enlargement. Mediastinal configuration stable. Vasculature overall within normal limits with likely areas of atelectasis in the perihilar and basilar region. No definitive infiltrate. Unchanged asymmetry of the left diaphragm. IMPRESSION: 1. Post sternotomy and cardiac valve prosthesis. Stable severity cardiac enlargement without failure. 2. New areas of atelectasis in the perihilar and basilar regions. Dictated by: Dictated on workstation # [id number]
--- NOTE | 2019-12-21 21:34 | NUR ---
right ij 7 fr central line placed by Dr Chan
[2019-12-21] MEDS ORDERED: ENOXAPARIN 30 MG/0.3 ML (LOVENOX) SYR SC ONE (22:00)
[2019-12-21] MEDS ORDERED: ENOXAPARIN 100 MG/1 ML (LOVENOX) SYR SC ONE (22:00)
--- NOTE | 2019-12-21 22:14 | Diagnostic Imaging Report ---
INDICATION: Line placement. TECHNIQUE: Single view chest 9:51 p.m. CORRELATION STUDY: 12/21/2019. FINDINGS: Since the prior study, right IJ central line has been placed with tip projecting over the right paramediastinal, superiorly, likely over the high SVC. Post sternotomy changes. Cardiac enlargement. Loop recorder device over the left heart is present. Visualized lung meade appear generally clear without significant infiltrate or pneumothorax. IMPRESSION: Right IJ central line has been placed, tip projecting over the high right paramediastinal region. Dictated by: Dictated on workstation # [id number]
[2019-12-21] MEDS ORDERED: fentaNYL INJECTION 100 MCG/2 ML AMP IVP ONE (22:30)
[2019-12-21 23:30] VITALS: BP 97/80
[2019-12-21] MEDS ORDERED: 1/2 NS W/KCL 20 MEQ/L 1,000 ML IV ONE (23:30)
[2019-12-21 23:41] VITALS: BP 97/80
[2019-12-22] VITALS (22 sets, daily range): BP systolic 99–174; BP diastolic 59–94
[2019-12-22] MEDS ORDERED: fentaNYL INJECTION 100 MCG/2 ML AMP IVP ONE (00:15)
[2019-12-22] MEDS ORDERED: MIDAZOLAM 2 MG/2 ML (VERSED) VIAL IVP ONE (00:15)
[2019-12-22] MEDS: 1/2 NS W/KCL 20 MEQ/L 1,000 ML IV SCH ×4 (00:28→18:21)
[2019-12-22] MEDS ORDERED: LORazepam INJ 2 MG/ML (ATIVAN) VIAL IV PRN (00:30)
[2019-12-22] MEDS ORDERED: ONDANSETRON 4 MG/2 ML (SDV) Z0FRAN IV PRN (00:30)
[2019-12-22] MEDS ORDERED: fentaNYL INJECTION 100 MCG/2 ML AMP IV PRN (00:30)
--- NOTE | 2019-12-22 01:05 | NUR ---
CARDIOVERSION TIMELINE NOTE 0040- 4 MG VERSED AND 100 MCG OF FENTANYL GIVEN PER DR DWYER 0043- 4 MG VERSED AND 100 MCG OF FENTANYL GIVEN PER DR DWYER 0045- SHOCK DELIVERED AT [address] DWYER PT STILL IN AFIB 0047- 4 MG VERSED GIVEN PER DR DWYER 0048- SHOCK DELIVERED AT [address] DWYER. PT CONVERTED TO SINUS TACH 0050- EKG PERFORMED. PT RESTING COMFORTABLY. VITALS SIGNS STABLE. CARDIOLOGY INFORMED. FAMILY UPDATED ON PT CONDITION.
[2019-12-22] MEDS ORDERED: AMIODARONE 450 MG/9 ML (CORDARONE) VIAL IV ONE (03:19)
[2019-12-22] MEDS ORDERED: D5W IV SOLUTION (EXCEL) 250 ML IV ONE (03:19)
[2019-12-22] MEDS: AMIODARONE INJECTION 450 MG in D5W IV SOLUTION (EXCEL) 250 ML IV SCH (03:28)
[2019-12-22 03:47] LABS: BASOPHILS % (AUTO) 0 % (0-10); EOSINOPHILS # (AUTO) 0.1 10^3/uL (0.0-0.3); EOSINOPHILS % (AUTO) 1 % (0-10); HEMATOCRIT 28 % (40-54); HEMOGLOBIN 9.2 G/DL (13.3-17.7); LYMPHOCYTES # (AUTO) 1.3 X 10^3 (1.0-4.0); LYMPHOCYTES % (AUTO) 19 % (12-44); MEAN CORPUSCULAR HEMOGLOBIN 27 PG (25-34); MEAN CORPUSCULAR HGB CONC 33 G/DL (32-36); MEAN CORPUSCULAR VOLUME 82 FL (80-99); MEAN PLATELET VOLUME 9.6 FL (7.4-10.4); MONOCYTES # (AUTO) 0.7 X 10^3 (0.0-1.0); MONOCYTES % (AUTO) 11 % (0-12); NEUTROPHILS # (AUTO) 4.6 X 10^3 (1.8-7.8); NEUTROPHILS % (AUTO) 68 % (42-75); PLATELET COUNT 257 10^3/uL (130-400); RED CELL DISTRIBUTION WIDTH 13.1 % (10.0-14.5); WHITE BLOOD COUNT 6.7 10^3/uL (4.3-11.0)
[2019-12-22 04:10] LABS: BUN/CREATININE RATIO 10; CALCIUM 7.8 MG/DL (8.5-10.1); CARBON DIOXIDE 20 MMOL/L (21-32); CHLORIDE 109 MMOL/L (98-107); GFR ESTIMATED > 60; GLUCOSE 96 MG/DL (70-105); MAGNESIUM 1.7 MG/DL (1.6-2.4); PHOSPHORUS 3.8 MG/DL (2.3-4.7); SODIUM 137 MMOL/L (135-145)
--- NOTE | 2019-12-22 05:38 | Pulmonary Consultation ---
History of Present Illness History of Present Illness Date Seen by Provider: Dec 22, 2019 Time Seen by Provider: 05:35 Date of Admission Allergies and Home Medications Allergies Coded Allergies: No Known Drug Allergies (Unverified , 01/01/19) Home Medications Acetaminophen 325 Mg Tablet, 325 MG PO PRN, (Reported) Metoprolol Succinate 100 Mg Tab.er.24h, 100 MG PO DAILY Prescribed by: ALEXUS MAHMOOD on 10/07/18 1431 Past Kxuukqb-Wpckty-Svxdyh Hx Patient Social History Alcohol Use: Denies Use Recreational Drug Use: Yes Drug of Choice: marijuana Type Used: Cigarettes 2nd Hand Smoke Exposure: No Recent Foreign Travel: No Contact w/Someone Who Travel: No Recent Infectious Disease Expo: No Recent Hopitalizations: Yes Physical Abuse: No Sexual Abuse: No Mistreated: No Fear: No Immunizations Up To Date Tetanus Booster (TDap): Less than 5yrs Date of Influenza Vaccine: Jun 03, 2019 Seasonal Allergies Seasonal Allergies: No Past Medical History Surgeries: Yes (ablation-svt/a-fib, LOOP RECORDER 01/02/19) Cardiac, Tonsillectomy Respiratory: No Cardiac: Yes (ascending aortic aneurysm, bicuspid valve dysfunction, V-tach) Aneurysm, Atrial Fibrillation, Heart Murmur, High Cholesterol, Irregular Heartbeat, Palpitations Neurological: Yes Headaches /Migraines Genitourinary: No Gastrointestinal: No Musculoskeletal: Yes Chronic Back Pain Endocrine: No HEENT: No Cancer: No Psychosocial: No Integumentary: No Blood Disorders: No Adverse Reaction/Blood Tranf: No Family Medical History Hypertension Review of Systems Time Seen by Provider: 05:38 Sepsis Event Evaluation Height, Weight, BMI Height: 5'11.00" Weight: 308lbs. 0.0oz. 139.866375vo; 42.00 BMI Method:Stated Exam Exam Vital Signs Date Time Temp Pulse Resp B/P (MAP) Pulse Ox O2 Delivery O2 Flow Rate FiO2 12/22/19 05:00 88 28 118/75 (89) 95 Nasal Cannula 2.00 12/22/19 04:00 89 25 117/68 (84) 96 Nasal Cannula 2.00 12/22/19 03:55 36.7 12/22/19 03:54 97 Room Air 2.00 12/22/19 03:00 87 26 108/69 (82) 98 Nasal Cannula 2.00 12/22/19 02:00 92 25 113/78 (90) 93 Nasal Cannula 2.00 12/22/19 01:29 Nasal Cannula 2.00 12/22/19 01:00 99 12/22/19 01:00 101 33 110/68 (82) 96 OxyMask 10.00 12/22/19 00:30 161 14 106/59 (75) 98 Nasal Cannula 2.00 12/22/19 00:15 160 30 102/72 (82) 99 Nasal Cannula 2.00 12/22/19 00:00 160 19 99/60 (73) 99 Nasal Cannula 2.00 12/22/19 00:00 97 Room Air 2.00 12/21/19 23:41 37.1 160 16 97/80 (86) 97 Nasal Cannula 2.00 12/21/19 23:33 163 12/21/19 23:30 161 33 97/80 (86) 96 Nasal Cannula 2.00 12/21/19 23:30 Nasal Cannula 2.00 12/21/19 22:45 161 20 99/50 98 Nasal Cannula 2.00 12/21/19 21:05 160 82/56 12/21/19 20:27 36.1 174 18 98/62 (74) 96 Room Air I & O 12/22/19 07:00 Intake Total 4453 ml Output Total 300 ml Balance 4153 ml Height & Weight Height: 5'11.00" Weight: 308lbs. 0.0oz. 139.724153fv; 42.00 BMI Method:Stated General Appearance: WD/WN, Anxious, Moderate Distress HEENT: PERRL/EOMI, Pharynx Normal Neck: Full Range of Motion, Normal Inspection Respiratory: Lungs Clear, Normal Breath Sounds, No Accessory Muscle Use, No Respiratory Distress Cardiovascular: Regular Rate, Rhythm, No Edema, Normal Peripheral Pulses, Tachycardia (160) Capillary Refill: Less Than 3 Seconds Extremity: Normal Capillary Refill, Normal Inspection, Normal Range of Motion Neurologic/Psychiatric: Alert, Oriented x3 Skin: Normal Color, Diaphoresis Results Lab Laboratory Tests 12/21/19 20:15 12/22/19 03:34 Assessment/Plan Assessment/Plan Afib rvr s/p cardioversion -Cardiology following S/p Bicuspid valve replacement 2 wks ago [facility] use -Check UDS -Educatoin Anemia -Monitor FRANCHESCA LARSON DO Dec 22, 2019 05:38
[2019-12-22] MEDS ORDERED: KCL 20 MEQ TAB (K-DUR) PO SCH (06:00)
[2019-12-22] MEDS ORDERED: POTASSIUM CL 10MEQ/50ML IVPB 50 ML IV SCH (06:00)
[2019-12-22] MEDS ORDERED: MAGNESIUM 1 GM/100 ML IVPB 100 ML IV SCH (06:00)
--- NOTE | 2019-12-22 07:03 | Diagnostic Imaging Report ---
CHEST 1 VIEW, AP/PA ONLY Indication: Dyspnea Comparison: 12/21/2019 Findings: Stable right IJ central venous catheter. Stable marked enlargement of cardiac silhouette with changes of sternotomy. Visualized lungs are clear. No pleural effusion or pneumothorax. Impression: 1. No adverse development. Dictated by: Dictated on workstation # [id number]
[2019-12-22] MEDS ORDERED: ENOXAPARIN 80 MG/0.8 ML (LOVENOX) SYR SC SCH (09:00)
[2019-12-22 09:11] LABS: AMPHETAMINE SCREEN, URINE NEGATIVE (NEGATIVE); BARBITURATE SCREEN URINE NEGATIVE (NEGATIVE); BENZODIAZEPINES SCREEN URINE NEGATIVE (NEGATIVE); CANNABINOID SCREEN, URINE POSITIVE (NEGATIVE); COCAINE SCREEN URINE NEGATIVE (NEGATIVE); METHADONE STAT NEGATIVE (NEGATIVE); METHAMPHETAMINE SCREEN URINE S NEGATIVE (NEGATIVE); OPIATE SCREEN URINE NEGATIVE (NEGATIVE); OXYCODONE STAT NEGATIVE (NEGATIVE); PROPOXYPHENE STAT NEGATIVE (NEGATIVE); TRICYCLIC ANTIDEPRESSANTS SCRE NEGATIVE (NEGATIVE)
--- NOTE | 2019-12-22 10:26 | History & Physical-Hospitalist ---
History of Present Illness Source: patient, RN/MD Exam Limitations: no limitations Date Seen 12/22/19 Time Seen by a Provider: 10:15 Attending Physician Lana Elizabeth DO [facility] Referring Physician Yessi MEDEROS MD Date of Admission Dec 21, 2019 at 22:10 Home Medications & Allergies Home Medications Reviewed patient Home Medication Reconciliation performed by pharmacy medication reconciliations fuel cell battery technician and/or nursing. Patients Allergies have been reviewed. Allergies Allergies Coded Allergies No Known Drug Allergies (Unverified01/01/19) Past Cutszzb-Kunjfp-Wcpwql Hx Patient Social History Alcohol Use: Denies Use Recreational Drug Use: Yes Drug of Choice: marijuana Type Used: Cigarettes 2nd Hand Smoke Exposure: No Recent Foreign Travel: No Contact w/other who traveled: No Recent Hopitalizations: Yes Recent Infectious Disease Expo: No Immunizations Up To Date Tetanus Booster (TDap): Less than 5yrs Date of Influenza Vaccine: Jun 03, 2019 Seasonal Allergies Seasonal Allergies: No Past Medical History Surgeries: Cardiac, Tonsillectomy Cardiac: Aneurysm, Atrial Fibrillation, Heart Murmur, High Cholesterol, Irregular Heartbeat, Palpitations Neurological: Headaches /Migraines Musculoskeletal: Chronic Back Pain History of Blood Disorders: No Adverse Reaction to Blood Stone: No Family History Hypertension Physical Exam Physical Exam Vital Signs Vital Signs - First Documented 12/21/19 12/21/19 20:27 22:45 Temp 36.1 Pulse 174 Resp 18 B/P (MAP) 98/62 (74) Pulse Ox 96 O2 Delivery Room Air O2 Flow Rate 2.00 Capillary Refill : Less Than 3 Seconds Height, Weight, BMI Height: 5'11.00" Weight: 308lbs. 0.0oz. 139.583427yq; 42.00 BMI Method:Stated Results Results/Procedures Labs Laboratory Tests 12/21/19 20:15 12/22/19 03:34 Patient resulted labs reviewed. Clinical Quality Measures DVT/VTE Risk/Contraindication: Risk Factor Score Per Nursin RFS Level Per Nursing on Admit: 4+=Very High LANA ELIZABETH DO Dec 22, 2019 10:26
[2019-12-22] MEDS ORDERED: ACET-168 PO (10:34)
--- NOTE | 2019-12-22 10:40 | NUR ---
Pastoral care visit.
[2019-12-22] MEDS ORDERED: METO200T48 PO (11:39)
--- NOTE | 2019-12-22 11:40 | NUR ---
SPOKE WITH THE PT, WENT THRU THE EXT MED HISTORY AND CALLED [facility] TO COMPLETE THE MED REC WARFARIN 1MG AND 10MG BOTH SHOW ON THE EXT MED HISTORY BUT THE PT IS CURRENTLY JUST TAKING 10MG DAILY GABAPENTIN 300MG- THE DIRECTIONS SHOW 1 TAB TID HOWEVER THE PT IS JUST TAKING 1 TAB BID 11-25-2019 METOPROLOL SUCC 200MG #30/30DS (THIS IS NOT SHOWING ON THE EXT MED HISTORY BUT WAS FILLED AT [facility]) OTC MEDS: TYLENOL
[2019-12-22] MEDS: fentaNYL INJECTION 100 MCG/2 ML AMP IV PRN ×2 (12:08→17:07)
[2019-12-22] MEDS ORDERED: dilTIAZem120 MG (CARDIZEM CD) CAP PO NR (16:45)
[2019-12-22] MEDS ORDERED: DILT120C82 PO (17:01)
[2019-12-22] MEDS ORDERED: ENOX300V SQ (17:09)
[2019-12-22] MEDS ORDERED: AMIODARONE INJECTION 450 MG in D5W IV SOLUTION (EXCEL) 250 ML IV SCH (17:30)
[2019-12-22] MEDS ORDERED: ENOX120D5 SQ (17:38)
--- NOTE | 2019-12-22 17:46 | NUR ---
LOVENOX RX CHANGED TO 120MG PO BID PER DR CORTEZ. RX SENT TO [facility].
--- NOTE | 2019-12-22 17:51 | Consultation-Cardiology ---
HPI-Cardiology Cardiology Consultation: Date of Consultation 12/22/19 Date of Admission Attending Physician Lana Elizabeth DO Admitting Physician [facility] Consulting Physician Yessi MESA MD HPI: Time Seen by a Provider: 16:55 Chief Complaint: Palpitations This is a 34-year-old gentleman who I have seen previously in the office. 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 He also has history of severe bicuspid aortic valve stenosis with enlarged ascending thoracic aortic aneurysm and underwent surgery on 01 of December and was discharged a few days after. He had done coronary angiography before the surgery which did not show any significant CAD. The patient is on warfarin however his INR level I.7. He presented with palpitations and shortness of breath. He was found to be in atrial flutter with 2-1 AV block. He was transferred to [facility] for further management. He was started on Cardizem and amiodarone. However the patient became hypotensive with systolic blood pressure below 100 mmHg and overnight the ER physician had to be called to perform an emergent cardioversion. I had spoken to the patient over the phone and told him that there is a 1 percent risk of complication including stroke. The patient understood in the presence of the nurse and gave an informed consent. The patient was cardioverted by the ER physician to sinus rhythm. When I saw the patient he was doing well and denied any cardiac complaints including chest pain, palpitations or shortness of breath. Review of Systems-Cardiology Review of Systems Constitutional: As described under HPI; No As described under HPI, No no symptoms reported, No chills, No fever, No lightheadedness Eyes: No As described under HPI, No no symptoms reported, No blindness, No blurred vision, No contact lenses, No drainage, No decreased acuity, No foreign body sensation, No pain, No vision change Ears/Nose/Throat: No As described under HPI, No no symptoms reported, No chronic hearing loss, No ear discharge, No ear pain, No nasal drainage, No ulcerations Respiratory: No no symptoms reported; As described under HPI; No As described under HPI, No cough, No orthopnea, No shortness of breath, No SOB with excertion Cardiovascular: No no symptoms reported; As described under HPI; No As described under HPI, No chest pain, No edema, No irregular heart rate, No lightheadedness; palpitations Gastrointestinal: No no symptoms reported, No As described under HPI, No abdomen distended, No abdominal pain, No blood streaked bowels, No constipation, No diarrhea, No nausea, No vomiting, No stool coloration changes Genitourinary: No As described under HPI, No burning, No dysuria, No discharge, No frequency, No flank pain, No hematuria, No urgency Skin: No rash, No skin related problems, No ulcerations Psychiatric/Neurological: No anxiety, No depression, No seizure, No focal weakness, No syncope Hematologic: No bleeding abnormalities All Other Systems Reviewed Negative Unless Noted: Yes FPT-[id number] Hx Patient Social History Alcohol Use: Denies Use Recreational Drug Use: Yes Drug of Choice: marijuana Type Used: Cigarettes 2nd Hand Smoke Exposure: No Recent Foreign Travel: No Recent Infectious Disease Expo: No Hospitalization with Isolation: Denies Immunizations Up To Date Tetanus Booster (TDap): Less than 5yrs Date of Influenza Vaccine: Jun 03, 2019 Past Medical History PMH As described under Assessment. Allergies and Home Medications Allergies Coded Allergies: No Known Drug Allergies (Unverified , 01/01/19) Home Medications Acetaminophen 500 Mg Tablet, 1,000 MG PO Q8H PRN for PAIN-MILD (1-4) OR TEMP ATURE, (Reported) Diltiazem HCl 120 Mg Cap.er.24h, 120 MG PO DAILY Prescribed by: ROSA MANUEL on 12/22/19 1701 Enoxaparin Sodium 120 Mg/0.8 Ml Syringe, 120 MG SQ Q12H Prescribed by: ROSA MANUEL on 12/22/19 1738 Gabapentin 300 Mg Capsule, 300 MG PO BID, (Reported) Lidocaine 1 Each Adh..patch, DAILY PRN for PAIN-BREAKTHROUGH, (Reported) PLACE ON THE AFFCTED AREA LEAVE ON FOR 12 HOURS THEN REMOVE PATCH Metoprolol Succinate 200 Mg Tab.er.24h, 200 MG PO 2000, (Reported) Oxycodone HCl 5 Mg Tablet, 5 MG PO Q6H PRN for PAIN-SEVERE (8-10), (Reported) Warfarin Sodium 10 Mg Tablet, 10 MG PO 2000, (Reported) Patient Home Medication List Home Medication List Reviewed: Yes Physical Exam-Cardiology Physical Exam Vital Signs/I&O 12/23/19 00:00 Intake Total 1220 ml Output Total 2100 ml Balance -880 ml Capillary Refill : Less Than 3 Seconds Constitutional: appears stated age, AAO x 3; No apparent distress; well- developed, well-nourished HEENT: PERRL; No discharge; hearing is well preserved, oral hygience is good; No ulceration, No xanthelasmas are seen Neck: No carotid bruit; carotid pulses are 2 + bilaterally Respiratory: chest is bilaterally symmetric, lungs clear to auscultation Cardiovascular: regular rate-rhythm, S1 and S2 Gastrointestinal: soft, audible bowel sounds; No spleenomegaly Rectal: deferred Extremities: normal range of motion, non-tender, normal inspection; No c lubbing, No cyanosis; no lower extremity edema bilateral; No significant edema Neurologic/Psychiatric: no motor/sensory deficits, alert, normal mood/affect, oriented x 3, power is 5/5 both on sides Skin: normal color; No rash, No ulcerations Data Review Labs Microbiology 12/21/19 MRSA Screen - Final, Complete MRSA not isolated ECG Impression ECG Initial ECG Rhythm: A Fib/Flutter Comment Atrial flutter A/P-Cardiology Assessment/Admission Diagnosis Recent aortic valve replacement, Atrial flutter with 2-1 AV block with hemodynamic compromise, Moderate pericardial effusion, Subtherapeutic INR Plan Atrial flutter with 2-1 AV block with hemodynamic compromise requiring emergent cardioversion by the ER physician overnight. Successful cardioversion to sinus rhythm. Patient doing well. Right atrial flutter ablation was discussed and will be performed in the near future. Recent aortic valve replacement on 12/02/2019 in [place]. Moderate pericardial effusion with no tamponade physiology. We will repeat an echocardiogram on 12/24/2019, to follow-up on pericardial effusion. Subtherapeutic INR, the patient will be discharged on full dose Lovenox and will continue to take warfarin and follow with primary care physician for INR in the next one to 2 days. Prolonged QTc interval of 491 ms likely due to amiodarone. We will perform another EKG as an outpatient. Amiodarone was discontinued. Thank you for your consultation. Please call me if you have any questions. Lino Mesa MD, FACP, FACC, FSCAI, FHRS, CCDS Interventional Cardiology Cardiac Electrophysiology Vascular Medicine and Endovascular Interventions Clinical Quality Measures DVT/VTE Risk/Contraindication: Risk Factor Score Per Nursin RFS Level Per Nursing on Admit: 4+=Very High Yessi MESA MD Dec 22, 2019 17:51
--- NOTE | 2019-12-22 18:44 | ED Addendum ---
Addendum Physician Addendum Progress 0030---CALLED TO PT'S ROOM IN ICU, AT REQUEST OF E-ICU PHYSICIAN, TO PERFORM CARDIOVERSION. DR. MEDEROS WAS CONTACTED BY NURSING STAFF WELL, AND HE AGREED THAT PT NEEDED CARDIOVERSION, AND ALSO REQUESTED THAT I COME FROM ER TO PERFORM THE PROCEDURE. PT JUST TRANSFERRED HERE FROM [facility] FOR ATRIAL FIBRILLATION WITH RVR--HEART RATE HAS REMAINED IN 160'S, DESPITE AMIODARONE + CARDIZEM. PT RECENTLY HAD VALVE REPLACEMENT SURGERY. PT HAS HISTORY OF RECURRENT ATRIAL FIBRILLATION AND REPORTS HE HAS BEEN CARDIOVERTED A FEW TIMES IN THE PAST. PT HAD RECEIVED LOVENOX AT [facility]. C/O SLIGHT CHEST PRESSURE AND SLIGHT SHORTNESS OF BREATH RESPIRATIONS ARE EVEN AND UNLABORED--O2 SATS UPPER 90'S ON O2 HR 160'S AND IRREGULAR PT IS CALM AND COOPERATIVE CONSENT SIGNED BY PT PRIOR TO PROCEDURE. RT STAFF IN ROOM DURING ENTIRE PROCEDURE PT GIVEN VERSED + FENTANYL FOR SEDATION. PT CONVERTED TO NSR AT 100J NO COMPLICATIONS PT IS AWAKE AND AROUSEABLE SHORTLY AFTERWARD. PT ABLE TO MAINTAIN AIRWAY AND O2 SATS UP TO UPPER 90'S WITH SUPPLEMENTAL O2. SEEN NURSING NOTES FOR DETAILS General Chief Complaint: Cardiac/General Problems Stated Complaint: RAPID HR Nursing Triage Note: pt states he woke up from a nap around 1900 and felt like heart was racing, pt checked b/p and hr with results of 90's over 60's and hr of 170's Nursing Sepsis Screen: No Definite Risk Source of Information: Patient, Other (RN) History of Present Illness Date Seen by Provider: Dec 22, 2019 Time Seen by Provider: 00:30 Initial Comments ABOVE Physical Exam Vital Signs Vital Signs - First Documented 12/21/19 20:27 Temp 36.1 Pulse 174 Resp 18 B/P (MAP) 98/62 (74) Pulse Ox 96 O2 Delivery Room Air Capillary Refill : Less Than 3 Seconds Height, Weight, BMI Height: 5'11.00" Weight: 308lbs. 0.0oz. 139.117116tr; 42.00 BMI Method:Stated General Appearance: No Apparent Distress Respiratory: Normal Breath Sounds, No Accessory Muscle Use, No Respiratory Distress Cardiovascular: Irregularly Irregular, Tachycardia Neurologic/Psychiatric: Alert, Oriented x3 Skin: Normal Color, Warm/Dry Review of Systems Constitutional: no symptoms reported Respiratory: see HPI Cardiovascular: see HPI Progress/Results/Core Measures Results/Orders Lab Results Laboratory Tests Test 12/21/19 20:15 Range/Units White Blood Count 8.2 4.3-11.0 10^3/uL Red Blood Count 4.30 L 4.35-5.85 10^6/uL Hemoglobin 11.7 L 13.3-17.7 G/DL Hematocrit 35 L 40-54 % Mean Corpuscular Volume 81 80-99 FL Mean Corpuscular Hemoglobin 27 25-34 PG Mean Corpuscular Hemoglobin Concent 34 32-36 G/DL Red Cell Distribution Width 12.8 10.0-14.5 % Platelet Count 332 130-400 10^3/uL Mean Platelet Volume 9.5 7.4-10.4 FL Neutrophils (%) (Auto) 68 42-75 % Lymphocytes (%) (Auto) 22 12-44 % Monocytes (%) (Auto) 8 0-12 % Eosinophils (%) (Auto) 2 0-10 % Basophils (%) (Auto) 0 0-10 % Neutrophils # (Auto) 5.5 1.8-7.8 X 10^3 Lymphocytes # (Auto) 1.8 1.0-4.0 X 10^3 Monocytes # (Auto) 0.6 0.0-1.0 X 10^3 Eosinophils # (Auto) 0.2 0.0-0.3 10^3/uL Basophils # (Auto) 0.0 0.0-0.1 10^3/uL Prothrombin Time 20.6 H 12.2-14.7 SEC INR Comment 1.7 H 0.8-1.4 Sodium Level 139 135-145 MMOL/L Potassium Level 3.7 3.6-5.0 MMOL/L Chloride Level 101 98-107 MMOL/L Carbon Dioxide Level 22 21-32 MMOL/L Anion Gap 16 H 5-14 MMOL/L Blood Urea Nitrogen 9 7-18 MG/DL Creatinine 0.77 0.60-1.30 MG/DL Estimat Glomerular Filtration Rate > 60 BUN/Creatinine Ratio 12 Glucose Level 122 H 70-105 MG/DL Calcium Level 9.4 8.5-10.1 MG/DL Corrected Calcium 9.6 8.5-10.1 MG/DL Total Bilirubin 0.4 0.1-1.0 MG/DL Aspartate Amino Transf (AST/SGOT) 19 5-34 U/L Alanine Aminotransferase (ALT/SGPT) 23 0-55 U/L Alkaline Phosphatase 86 40-136 U/L Troponin I < 0.30 <0.30 NG/ML C-Reactive Protein 5.67 H <0.50 MG/DL Pro-B-Type Natriuretic Peptide 633.6 H <75.0 PG/ML Total Protein 7.2 6.4-8.2 GM/DL Albumin 3.8 3.2-4.5 GM/DL Vital Signs/I&O 12/21/19 12/21/19 20:27 21:05 Temp 36.1 Pulse 174 160 Resp 18 B/P (MAP) 98/62 (74) 82/56 Pulse Ox 96 O2 Delivery Room Air 12/22/19 00:00 Intake Total 3200 ml Balance 3200 ml Blood Pressure Mean: 108 Diagnostic Imaging Diagonstic Imaging: Xray Plain Films/CT/US/NM/MRI: chest Time of Consult: 21:43 Reviewed: Reviewed by Me Critical Care Note Critical Care Start Time: 00:30 Stop Time: 01:00 Progress SUCCESSFUL CARDIOVERSION Departure Impression Impression: Primary Impression: Atrial fibrillation with rapid ventricular response Decision to Admit/Discharge Decision to Admit/Dismiss Date: Dec 22, 2019 Disposition/Decision to Admit: 00:00 Departure Disposition: 09 ADMITTED INPATIENT Condition: Stable Patient Instructions: Atrial Fibrillation (DC) Referrals: [facility]ENN[facility] (PCP) Primary Care Physician YESSENIA HARDING APRN (Family) Primary Care Physician Scripts Enoxaparin Sodium (Enoxaparin Sodium) 120 Mg/0.8 Ml Syringe 120 MG SQ Q12H, #4 SYRINGE Prov: AMI OCRTEZ DO 12/22/19 Diltiazem HCl (Cardizem Cd) 120 Mg Cap.er.24h 120 MG PO DAILY, #60 CAP 0 Refills Prov: Yessi MEDEROS MD 12/22/19 DAVE DWYER DO Dec 22, 2019 18:44
[2019-12-22] MEDS ORDERED: ENOXAPARIN 300 MG/3 ML (LOVENOX) MULTI-DOSE VIAL SQ SCH (21:00)
[2019-12-22] MEDS ORDERED: meTOprolol SUCCINATE 100 MG (TOPROL XL) TAB PO SCH (21:00)
== END 2019-12-22 19:30 | disposition home or self-care (01) | DRG 309 ==
LOC: EDUNIT# 20:00 → ER FS 20:02 → ICU 22:10
PROVIDERS: ADMIT Internal Medicine; ATTEND Internal Medicine
PROC: 5A2204Z Restoration of Cardiac Rhythm, Single (ICD-10-PCS; principal; 2019-12-21)
DX: I48.91 Unspecified atrial fibrillation (principal); I48.92 Unspecified atrial flutter; I31.3 Pericardial effusion (noninflammatory); D64.9 Anemia, unspecified; E78.00 Pure hypercholesterolemia, unspecified; F17.210 Nicotine dependence, cigarettes, uncomplicated; M54.9 Dorsalgia, unspecified; F12.90 Cannabis use, unspecified, uncomplicated; Z95.2 Presence of prosthetic heart valve; Z79.01 Long term (current) use of anticoagulants; Z90.89 Acquired absence of other organs
CPT/HCPCS: 36415; 71045; 80048; 80053; 80306; 83735; 83880; 84100; 84484; 85025; 85610; 86141; 87081; 93005; 93306

== ENCOUNTER → 2019-12-24 | Outpatient (CLI) | payer BC ==
[~2019-12-24] MED LIST changes: +ACET-168 PO; +DILT120C82 PO; +ENOX120D5 SQ; +ENOX300V SQ; +METO200T48 PO
== END ==
LOC: CARD 11:10
PROVIDERS: ATTEND Internal Medicine Interventional Cardiology
DX: R00.0 Tachycardia, unspecified (principal); I31.3 Pericardial effusion (noninflammatory); Z95.2 Presence of prosthetic heart valve
CPT/HCPCS: 93306

== ENCOUNTER 2020-01-09 01:51 | Emergency (ER) | payer BC ==
[~2020-01-09] VITALS: Ht 180 cm; Wt 145.5 kg
[2020-01-09] MEDS ORDERED: DILT120C53 (02:16)
[2020-01-09 02:29] LABS: BASOPHILS % (AUTO) 0 % (0-10); EOSINOPHILS # (AUTO) 0.2 10^3/uL (0.0-0.3); EOSINOPHILS % (AUTO) 2 % (0-10); HEMATOCRIT 39 % (40-54); HEMOGLOBIN 13.3 G/DL (13.3-17.7); LYMPHOCYTES # (AUTO) 2.2 X 10^3 (1.0-4.0); LYMPHOCYTES % (AUTO) 22 % (12-44); MEAN CORPUSCULAR HEMOGLOBIN 26 PG (25-34); MEAN CORPUSCULAR HGB CONC 34 G/DL (32-36); MEAN CORPUSCULAR VOLUME 76 FL (80-99); MEAN PLATELET VOLUME 9.2 FL (7.4-10.4); MONOCYTES # (AUTO) 0.6 X 10^3 (0.0-1.0); MONOCYTES % (AUTO) 6 % (0-12); NEUTROPHILS # (AUTO) 7.3 X 10^3 (1.8-7.8); NEUTROPHILS % (AUTO) 71 % (42-75); PLATELET COUNT 338 10^3/uL (130-400); RED CELL DISTRIBUTION WIDTH 14.5 % (10.0-14.5); WHITE BLOOD COUNT 10.3 10^3/uL (4.3-11.0)
[2020-01-09 02:37] LABS: ALBUMIN 4.2 GM/DL (3.2-4.5); CHLORIDE 106 MMOL/L (98-107); INR 2.8 (0.8-1.4); POTASSIUM 4.1 MMOL/L (3.6-5.0); PROTHROMBIN TIME PATIENT 30.9 SEC (12.2-14.7); SODIUM 140 MMOL/L (135-145)
[2020-01-09 02:38] LABS: AMYLASE 36 U/L (25-125)
[2020-01-09 02:39] LABS: CALCIUM 9.3 MG/DL (8.5-10.1)
[2020-01-09 02:40] LABS: GLUCOSE 106 MG/DL (70-105); TOTAL PROTEIN 7.4 GM/DL (6.4-8.2)
[2020-01-09 02:41] LABS: CARBON DIOXIDE 23 MMOL/L (21-32)
[2020-01-09 02:42] LABS: BILIRUBIN,TOTAL 0.2 MG/DL (0.1-1.0)
[2020-01-09 02:43] LABS: ALKALINE PHOSPHATASE 64 U/L (40-136); CREATININE SERUM 1.05 MG/DL (0.60-1.30); GFR ESTIMATED > 60
[2020-01-09 02:45] LABS: BUN/CREATININE RATIO 11
[2020-01-09 02:46] LABS: ALANINE AMINOTRANSFERASE 38 U/L (0-55)
[2020-01-09 02:47] LABS: CREATINE KINASE 122 U/L (30-200); LIPASE 27 U/L (8-78); MAGNESIUM 1.9 MG/DL (1.6-2.4)
[2020-01-09 02:56] LABS: CREATINE KINASE MB 1.1 NG/ML (<6.6)
[2020-01-09 03:03] LABS: AMPHETAMINE SCREEN, URINE NEGATIVE (NEGATIVE); BARBITURATE SCREEN URINE NEGATIVE (NEGATIVE); BENZODIAZEPINES SCREEN URINE NEGATIVE (NEGATIVE); CANNABINOID SCREEN, URINE POSITIVE (NEGATIVE); COCAINE SCREEN URINE NEGATIVE (NEGATIVE); METHADONE STAT NEGATIVE (NEGATIVE); METHAMPHETAMINE SCREEN URINE S NEGATIVE (NEGATIVE); OPIATE SCREEN URINE NEGATIVE (NEGATIVE); OXYCODONE STAT NEGATIVE (NEGATIVE); PROPOXYPHENE STAT NEGATIVE (NEGATIVE); TRICYCLIC ANTIDEPRESSANTS SCRE NEGATIVE (NEGATIVE)
[2020-01-09 03:07] LABS: TSH (THYROID ANALYZER) 0.86 UIU/ML (0.35-4.94)
[2020-01-09] MEDS ORDERED: oxyCODONE/APAP 5/325MG (PERCOCET 5) TABLET PO ONE (03:30)
--- NOTE | 2020-01-09 04:13 | ED General ---
General Chief Complaint: Dizziness/Syncope Stated Complaint: CP Nursing Triage Note: reports near syncopal episode approx. 0130 with sweating/dizziness, intermittant left sided sharp chest pain. Nursing Sepsis Screen: No Definite Risk Source of Information: Patient, Old Records History of Present Illness Date Seen by Provider: January 09, 2020 Time Seen by Provider: 01:55 Initial Comments PT ARRIVES VIA EMS FROM HOME STATES THAT IMMEDIATELY PRIOR TO ARRIVAL, HE WAS SITTING AND GOT HOT A CLAMMY, AND WENT OUTSIDE TO COOL OFF AND FELT A LITTLE BIT BETTER, BUT THEN STARTED TO FEEL LIKE HE MIGHT PASS OUT, BUT NEVER DID--OCCURRED AROUND 0110 STATES NOW HE JUST FEELS TIRED. PT HAS EXTENSIVE CARDIAC HISTORY WITH ATRIAL FIBRILLATION WITH RVR AND SVT--HAS HAD CARDIAC ABLATIONS, AND MULTIPLE CARDIOVERSIONS, WITH THE LAST H OSPITALIZATION BEING 12/21/19 FOR ATRIAL FIBRILLATION WITH RVR AND REQUIRED CARDIOVERSION AT THAT TIME PT STATES HE WAS STARTED ON CARDIZEM AT DISMISSAL FROM THE HOSPITAL. PT STATES HE HAS NOT HAD ANY EPISODES OF IRREGULAR HEART BEATS SINCE THEN, AND DID NOT HAVE ANY TONIGHT PT ALSO HAS HISTORY OF WIDE-COMPLEX [id number], WELL ADDITIONALLY, PT HAS HAD AORTIC VALVE REPLACEMENT ON 12/01/19 FOR BICUSPID AORTIC VALVE WITH SEVERE AORTIC STENOSIS AND ANEURYSM OF ASCENDING THORACIC AORTA PT IS ON COUMADIN, AND DENIES ANY MISSED DOSES. STATES HIS INR WAS 2.7 YESTERDAY PT HAS HAD ONGOING LEFT SIDED CHEST PAIN "SINCE DAY 1 AFTER SURGERY" STATES CHEST PAIN RIGHT NOW IS POSSIBLY SLIGHTLY THERE--STATES "I CAN'T TELL IF IT'S THERE OR NOT", STATES "I GET SHARP PAINS SINCE THE SURGERY ON November" HAS OXYCODONE FOR THIS PAIN, BUT HAS NOT TAKEN ANY TODAY NO SHORTNESS OF BREATH NO PALPITATIONS NO SWELLING IN LEGS/ FEET NO NAUSEA/VOMITING/ABDOMINAL PAIN NO BACK PAIN NO COUGH NO FEVER /CHILLS OR RECENT ILLNESS NO HEADACHE NO VISION CHANGES NO PARESTHESIAS OR MOTOR DEFICITS PT HAS BEEN DRIVING FOR SEVERAL WEEKS, AND HAS NOT STAYED AT HOME, DESPITE THE STATE MANDATED STAY AT HOME ORDERS DUE TO COVID -19 PANDEMIC PT STATES A WEEK AGO, HE COULD HARDLY WALK FROM THE BED TO THE CHAIR STATES "I THINK I OVER-DID IT TODAY"--STATES 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 DENIES ANY ALCOHOL USE TODAY PT DENIES ANY KNOWN SICK CONTACTS OR KNOWN EXPOSURE TO COVID-19. PT HAS HAD SEVERAL VISITS/ADMITS THIS YEAR, SEE OLD CHARTS FOR DETAILS. 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 MEDEROS Allergies and Home Medications Allergies Coded Allergies: No Known Drug Allergies (Unverified , 01/01/19) Home Medications Metoprolol Succinate 200 Mg Tab.er.24h, 200 MG PO 1999, (Reported) Oxycodone HCl 5 Mg Tablet, 5 MG PO Q6H PRN for PAIN-SEVERE (8-10), (Reported) Warfarin Sodium 10 Mg Tablet, 10 MG PO 1999, (Reported) Patient Home Medication List Home Medication List Reviewed: Yes Review of Systems Review of Systems Constitutional: No chills; dizziness, malaise, weakness, other ("GOT CLAMMY" ) EENTM: no symptoms reported; No ear pain, No blurred vision, No double vision Respiratory: no symptoms reported; No cough, No short of breath, No wheezing Cardiovascular: see HPI; No edema, No palpitations, No syncope Gastrointestinal: no symptoms reported; No abdominal pain, No loss of appetite, No nausea, No vomiting Genitourinary: no symptoms reported Musculoskeletal: no symptoms reported; No back pain Skin: no symptoms reported Psychiatric/Neurological: No Symptoms Reported; Denies Headache, Denies Numbness, Denies Paresthesia, Denies Seizure, Denies Tingling, Denies Weakness Past Tuxarvr-Jslwui-Bjvips Hx Past Med/Social Hx: Reviewed and Corrections made Patient Social History Alcohol Use: Denies Use Recreational Drug Use: Yes (THC) Drug of Choice: THC Smoking Status: Current Everyday Smoker Type Used: Cigarettes 2nd Hand Smoke Exposure: No Recent Foreign Travel: No Contact w/Someone Who Travel: No Recent Infectious Disease Expo: No Recent Hopitalizations: Yes Physical Abuse: No Sexual Abuse: No Mistreated: No Fear: No Immunizations Up To Date Tetanus Booster (TDap): Less than 5yrs Date of Influenza Vaccine: Jun 03, 2019 Seasonal Allergies Seasonal Allergies: No Past Medical History Surgeries: Yes (ablation-svt/a-fib, LOOP RECORDER 01/02/19,bicuspid valve replacement) Cardiac, Tonsillectomy, Valve Replacement Respiratory: No Cardiac: Yes (ASCENDING THORACIC AORTIC ANEURYSM;BICUSPID AORTIC VALVE;AFIB/RVR;V-TACH ) Aneurysm, Atrial Fibrillation, Heart Murmur, High Cholesterol, Irregular Heartbeat, Palpitations, Valvular Heart Disease Neurological: Yes Headaches /Migraines Genitourinary: No Gastrointestinal: No Musculoskeletal: Yes Chronic Back Pain Endocrine: No HEENT: No Cancer: No Psychosocial: No Integumentary: No Blood Disorders: No Adverse Reaction/Blood Tranf: No Family Medical History Hypertension PSH: -TONSILLECTOMY -MULTIPLE CARDIOVERSIONS FOR ATRIAL FIBRILLATION/RVR -CARDIAC ABLATIONS FOR ATRIAL FIBRILLATION/RVR -SVT. -LOOP RECORDER PLACEMENT 01/02/2019 -CARDIAC CATHS--LAST ONE HERE 11/27/19, PRIOR TO VALVE REPLACEMENT--NO INTERVENTION, NORMAL CORONARIES, SEVERE AORTIC VALVE STENOSIS AND ASCENDING THORACIC AORTIC ANEURYSM -12/01/19--MECHANICAL AORTIC VALVE REPLACEMENT AT [facility]. Physical Exam Vital Signs Vital Signs - First Documented 01/09/20 01/09/20 01:53 02:00 Temp 36.5 Pulse 92 Resp 18 B/P (MAP) 121/81 (94) Pulse Ox 99 O2 Delivery Room Air O2 Flow Rate 2.00 Capillary Refill : Less Than 3 Seconds Height, Weight, BMI Height: 5'11.00" Weight: 308lbs. 0.0oz. 139.091226dz; 44.00 BMI Method:Stated General Appearance: No Apparent Distress, WD/WN, Obese Neck: Full Range of Motion, Normal Inspection, Non Tender, Supple; No Carotid Bruit, No JVD Respiratory: Normal Breath Sounds, No Accessory Muscle Use, No Respiratory Distress Cardiovascular: Regular Rate, Rhythm, No Edema, No JVD, No Murmur, Normal Peripheral Pulses, Other (MECHANICAL CLICK) Gastrointestinal: Normal Bowel Sounds, No Organomegaly, No Pulsatile Mass, Non Tender, Soft Back: Normal Inspection Extremity: Normal Capillary Refill, Normal Inspection, Normal Range of Motion, Non Tender, No Calf Tenderness, No Pedal Edema Neurologic/Psychiatric: Alert, Oriented x3, No Motor/Sensory Deficits, Normal Mood/Affect, elocution teacher II-XII Norm as Tested Skin: Normal Color, Warm/Dry Progress/Results/Core Measures Suspected Sepsis Recent Fever Within 48 Hours: No Infection Criteria Present: None New/Unexplained Altered Menta: No Sepsis Screen: No Definite Risk SIRS Temperature: Pulse: 92 Respiratory Rate: 18 Laboratory Tests 01/09/20 02:10: White Blood Count 10.3 Blood Pressure 121 /81 Mean: 94 Laboratory Tests 01/09/20 02:10: Creatinine 1.05, INR Comment 2.8H, Platelet Count 338, Total Bilirubin 0.2 Results/Orders Lab Results Laboratory Tests Test 01/09/20 02:10 01/09/20 02:40 01/09/20 04:52 Range/Units White Blood Count 10.3 4.3-11.0 10^3/uL Red Blood Count 5.12 4.35-5.85 10^6/uL Hemoglobin 13.3 13.3-17.7 G/DL Hematocrit 39 L 40-54 % Mean Corpuscular Volume 76 L 80-99 FL Mean Corpuscular Hemoglobin 26 25-34 PG Mean Corpuscular Hemoglobin Concent 34 32-36 G/DL Red Cell Distribution Width 14.5 10.0-14.5 % Platelet Count 338 130-400 10^3/uL Mean Platelet Volume 9.2 7.4-10.4 FL Neutrophils (%) (Auto) 71 42-75 % Lymphocytes (%) (Auto) 22 12-44 % Monocytes (%) (Auto) 6 0-12 % Eosinophils (%) (Auto) 2 0-10 % Basophils (%) (Auto) 0 0-10 % Neutrophils # (Auto) 7.3 1.8-7.8 X 10^3 Lymphocytes # (Auto) 2.2 1.0-4.0 X 10^3 Monocytes # (Auto) 0.6 0.0-1.0 X 10^3 Eosinophils # (Auto) 0.2 0.0-0.3 10^3/uL Basophils # (Auto) 0.0 0.0-0.1 10^3/uL Prothrombin Time 30.9 H 12.2-14.7 SEC INR Comment 2.8 H 0.8-1.4 Activated Partial Thromboplast Time 55 H 24-35 SEC Sodium Level 140 135-145 MMOL/L Potassium Level 4.1 3.6-5.0 MMOL/L Chloride Level 106 98-107 MMOL/L Carbon Dioxide Level 23 21-32 MMOL/L Anion Gap 11 5-14 MMOL/L Blood Urea Nitrogen 12 7-18 MG/DL Creatinine 1.05 0.60-1.30 MG/DL Estimat Glomerular Filtration Rate > 60 BUN/Creatinine Ratio 11 Glucose Level 106 H 70-105 MG/DL Calcium Level 9.3 8.5-10.1 MG/DL Corrected Calcium 9.1 8.5-10.1 MG/DL Magnesium Level 1.9 1.6-2.4 MG/DL Total Bilirubin 0.2 0.1-1.0 MG/DL Aspartate Amino Transf (AST/SGOT) 24 5-34 U/L Alanine Aminotransferase (ALT/SGPT) 38 0-55 U/L Alkaline Phosphatase 64 40-136 U/L Total Creatine Kinase 122 30-200 U/L Creatine Kinase MB 1.1 <6.6 NG/ML Myoglobin 23.1 10.0-92.0 NG/ML Troponin I < 0.028 < 0.028 <0.028 NG/ML B-Type Natriuretic Peptide 31.8 <100.0 PG/ML Total Protein 7.4 6.4-8.2 GM/DL Albumin 4.2 3.2-4.5 GM/DL Amylase Level 36 25-125 U/L Lipase 27 8-78 U/L TSH [place] Testing 0.86 0.35-4.94 UIU/ML Serum Alcohol < 10 <10 MG/DL Urine Opiates Screen NEGATIVE NEGATIVE Urine Oxycodone Screen NEGATIVE NEGATIVE Urine Methadone Screen NEGATIVE NEGATIVE Urine Propoxyphene Screen NEGATIVE NEGATIVE Urine Barbiturates Screen NEGATIVE NEGATIVE Ur Tricyclic Antidepressants Screen NEGATIVE NEGATIVE Urine Phencyclidine Screen NEGATIVE NEGATIVE Urine Amphetamines Screen NEGATIVE NEGATIVE Urine Methamphetamines Screen NEGATIVE NEGATIVE Urine Benzodiazepines Screen NEGATIVE NEGATIVE Urine Cocaine Screen NEGATIVE NEGATIVE Urine Cannabinoids Screen POSITIVE H NEGATIVE My Orders Orders - DAVE DWYER DO Ed Iv/Invasive Line Start (01/09/20 02:01) Ekg Tracing (01/09/20 02:01) Monitor-Rhythm Ecg Trace Only (01/09/20 02:01) Drug Screen Stat (Urine) (01/09/20 02:01) Cbc With Automated Diff (01/09/20 02:01) Chest 1 View, Ap/Pa Only (01/09/20 02:01) Comprehensive Metabolic Panel (01/09/20 02:01) Myoglobin Serum (01/09/20 02:01) Protime With Inr (01/09/20 02:01) Partial Thromboplastin Time (01/09/20 02:01) O2 (01/09/20 02:01) Creatine Kinase (01/09/20 02:01) Creatine Kinase Mb (01/09/20 02:01) Lipase (01/09/20 02:01) Amylase (01/09/20 02:01) BNP (01/09/20 02:01) Alcohol (01/09/20 02:10) Magnesium (01/09/20 02:10) Thyroid Analyzer (01/09/20 02:10) Troponin I (01/09/20 02:10) Oxycodone/Apap 5/325mg Tablet (Percocet (01/09/20 03:30) Ekg Tracing (01/09/20 04:51) Troponin I (01/09/20 04:51) Medications Given in ED Current Medications Medications Dose Ordered Sig/Helder Route Start Time Stop Time Status Last Admin Dose Admin Oxycodone/ Acetaminophen 1 tab ONCE ONCE PO 01/09/20 03:30 01/09/20 03:31 DC 01/09/20 03:44 1 TAB Vital Signs/I&O 01/09/20 01/09/20 01:53 02:00 Temp 36.5 Pulse 92 Resp 18 B/P (MAP) 121/81 (94) Pulse Ox 99 O2 Delivery Room Air Nasal Cannula O2 Flow Rate 2.00 Capillary Refill : Less Than 3 Seconds Blood Pressure Mean: 94 Progress Note : Progress Note PT HAD NO ARRHYTHMIAS DURING ER STAY VITALS STABLE GIVEN OXYCODONE FOR HIS COMPLAINT OF ONGOING LEFT CHEST PAIN SINCE SURGERY 12/01/19 PT HAD NO OTHER COMPLAINTS DURING ER STAY PT HELD IN ER FOR OBSERVATION AND 3 HOUR RULE OUT. REPEAT EKG AND TROPONIN NEGATIVE AND PT REMAINS SYMPTOM-FREE AND FEELS COMFORTABLE GOING HOME ECG Initial ECG Impression Date: January 09, 2020 Initial ECG Impression Time: 02:00 Initial ECG Rate: 90 Initial ECG Rhythm: Normal Sinus EKG : EKG Time: 05:00 Rate: 80 Rhythm: Normal Sinus ECG Comparisson: Unchanged Diagnostic Imaging Comments CXR--NO ACUTE PROCESS, PENDING RADIOLOGIST REVIEW Departure Impression Primary Impression: Generalized weakness Additional Impression: PERSISTENT LEFT CHEST POST OP PAIN Disposition: 01 HOME, SELF-CARE Condition: Improved Departure-Patient Inst. Referrals: [facility]/JENNIFER (PCP) Primary Care Physician YESSENIA HARDING APRN (Family) Primary Care Physician Patient Instructions: Generalized Weakness (DC), Marijuana Use and Addiction (DC), Postoperative Pain (DC), SMOKING CESSATION Add. Discharge Instructions: TAKE YOUR MEDICATIONS PRESCRIBED HOME, REST LIMIT YOUR ACTIVITIES, AND USE PRECAUTIONS SUCH WEARING A MASK AND FREQUENT HAND WASHING, ETC NO SMOKING OF ANY KIND NO MARIJUANA USE FOLLOW UP WITH DR. MEDEROS THIS WEEK FOR FURTHER CARE RETURN TO ER IF WORSE All discharge instructions reviewed with patient and/or family. Voiced understanding. DAVE DWYER DO January 09, 2020 04:13
[2020-01-09 05:42] VITALS: BP 103/53
--- NOTE | 2020-01-09 06:51 | Diagnostic Imaging Report ---
Clinical indication: Patient with near syncopal episode approximately 0130 with sweating and dizziness. Patient has intermittent left side sharp chest pain. Exam: Portable chest x-ray upright view. Comparisons: Chest x-ray dated 12/22/2019. Findings: There is progression of discoid atelectasis involving the left midlung field/left lung base. There is slight elevation left hemidiaphragm. The remainder of the lungs are clear. There is no pleural effusion or pneumothorax. Pulmonary vasculature and cardiac silhouette is within normal limits for portable projection. Stable postsurgical change in the chest with sternotomy wires. Bony structures show no significant abnormality. IMPRESSION: 1: There is no interval radiographic evidence of acute cardiopulmonary process. 2: There is progression of atelectasis in the left midlung field/left lung base region. Dictated by: Dictated on workstation # [id number]
== END 2020-01-09 05:46 | disposition home or self-care (01) ==
LOC: EDUNIT# 01:51 → ER 01:53
DX: R53.1 Weakness (principal); G89.18 Other acute postprocedural pain; R07.9 Chest pain, unspecified; I48.91 Unspecified atrial fibrillation; M54.9 Dorsalgia, unspecified; G89.29 Other chronic pain; F17.210 Nicotine dependence, cigarettes, uncomplicated; Z79.01 Long term (current) use of anticoagulants; Z95.2 Presence of prosthetic heart valve
CPT/HCPCS: 36415; 71045; 80053; 80306; 80320; 82150; 82550; 82553; 83690; 83735; 83874; 83880; 84443; 84484; 85025; 85610; 85730; 93005; 93041

== ENCOUNTER → 2020-02-12 | Outpatient (CLI) | payer BC ==
[~2020-02-12] MED LIST changes: +ACET325T49 PO; +DILT120C53; +DILT120C53 PO; +DILTIAZEM PO; +LORA-405 PO; +OXYC-471 PO
== END ==
LOC: LABNPT 06:58
PROVIDERS: ATTEND Internal Medicine Nephrology
DX: Z01.812 Encounter for preprocedural laboratory examination (principal); Z20.828 Contact with and (suspected) exposure to other viral communicable diseases
CPT/HCPCS: 87635

== ENCOUNTER 2020-02-16 07:24 | Day surgery (SDC) | payer BC ==
[~2020-02-16] VITALS: Ht 180.3 cm; Wt 135.0 kg
[2020-02-16] VITALS (19 sets, daily range): BP systolic 126–157; BP diastolic 66–99
[~2020-02-16 07:24] MED LIST changes: -ACET325T49 PO; -DILT120C53 PO; -DILTIAZEM PO; -LORA-405 PO; -OXYC-471 PO
[2020-02-16] MEDS ORDERED: NS IV 1000 ML 1,000 ML IV SCH (07:25)
[2020-02-16] MEDS ORDERED: LIDOCAINE 1% INJ 20 ML 20 ML VIAL ONE (07:26)
[2020-02-16] MEDS ORDERED: NS IV 1000 ML 1,000 ML ONE (07:27)
[2020-02-16] MEDS ORDERED: HEParin (CATH LAB) 1,000 ML IV ONE ×2 (07:27)
[2020-02-16] MEDS ORDERED: proPOfol 200 MG/20 ML (DIPRIVAN) VIAL IV ONE ×2 (07:30→10:27)
[2020-02-16] MEDS ORDERED: ISOPROTERENOL 0.2 MG/D5W 50 ML IV ONE (07:30)
[2020-02-16] MEDS ORDERED: fentaNYL INJECTION 100 MCG/2 ML AMP ONE (07:32)
[2020-02-16] MEDS ORDERED: ONDANSETRON 4 MG/2 ML (SDV) Z0FRAN ONE (07:34)
[2020-02-16] MEDS ORDERED: LIDOCAINE BOLUS 100 MG/5 ML (IMS) SYR ONE (07:34)
[2020-02-16 07:53] LABS: HEMOGLOBIN 14.5 G/DL (13.3-17.7); MEAN PLATELET VOLUME 9.6 FL (7.4-10.4); RED CELL DISTRIBUTION WIDTH 16.8 % (10.0-14.5); WHITE BLOOD COUNT 10.6 10^3/uL (4.3-11.0)
[2020-02-16] MEDS ORDERED: MIDAZOLAM 2 MG/2 ML (VERSED) VIAL ONE (07:53)
[2020-02-16] MEDS ORDERED: ROCURONIUM 10 MG/ML 5 ML SYRINGE IV ONE (07:54)
[2020-02-16] MEDS ORDERED: DEXAMETHASONE 10 MG/ML (DECADRON) 1 ML VIAL ONE (07:54)
[2020-02-16] MEDS ORDERED: WARF10TA44 PO (07:59)
[2020-02-16 08:05] LABS: PROTHROMBIN TIME PATIENT 23.6 SEC (12.2-14.7)
[2020-02-16 08:10] LABS: ALANINE AMINOTRANSFERASE 20 U/L (0-55); ALBUMIN 4.1 GM/DL (3.2-4.5); ALKALINE PHOSPHATASE 67 U/L (40-136); BILIRUBIN,TOTAL 0.2 MG/DL (0.1-1.0); BUN/CREATININE RATIO 14; CALCIUM 9.1 MG/DL (8.5-10.1); CARBON DIOXIDE 21 MMOL/L (21-32); CHLORIDE 107 MMOL/L (98-107); CREATININE SERUM 0.83 MG/DL (0.60-1.30); GFR ESTIMATED > 60; GLUCOSE 101 MG/DL (70-105); POTASSIUM 4.1 MMOL/L (3.6-5.0); SODIUM 140 MMOL/L (135-145); TOTAL PROTEIN 7.4 GM/DL (6.4-8.2)
[2020-02-16] MEDS ORDERED: LORA-405 PO (08:25)
[2020-02-16] MEDS ORDERED: DILTIAZEM PO ×2 (08:25)
[2020-02-16] MEDS ORDERED: ACET325T49 PO ×2 (08:25→14:36)
[2020-02-16] MEDS ORDERED: PROPOFOL DRIP (ICU) 100 ML IV ONE (10:27)
[2020-02-16] MEDS ORDERED: LACTATED RINGERS 1,000 ML IV ONE (10:33)
[2020-02-16] MEDS ORDERED: SEVOFLURANE (ULTANE) 15 ML INHAL SOLN ONE ×2 (10:36→10:37)
--- NOTE | 2020-02-16 11:46 | Electrophysiology Procedure ---
EP Procedure EP study and typical atrial flutter ablation operative report. DATE OF SERVICE:02/16/20 CARDIAC PROGRAM ANALYST: Lino Mesa MD, [facility] INDICATION: Typical atrial flutter. PREOPERATIVE DIAGNOSIS: Typical atrial flutter. POSTOPERATIVE DIAGNOSES: Successful typical atrial flutter ablation. HISTORY: This is a 34-year-old gentleman with aortic valve replacement in November 2019. According to the patient he has had PSVT ablation in [place]. He presented with typical atrial flutter with 2-1 AV block requiring cardioversion. The patient is planned for comprehensive EP study and ablation. PROCEDURE PERFORMED: 1. Comprehensive EP study with induction. 2. Fluoroscopy. 3. Left atrial pacing and recording. 4. Drug infusion. 5. Ablation of typical atrial flutter. 6. Comprehensive 3D mapping with the carto system. COMPLICATION: None. ESTIMATED BLOOD LOSS: 10 mL. CONTRAST USED: None. FLUOROSCOPY TIME: 5.7 minutes. FLUOROSCOPY DOSE: 341 mgy. SPECIMENS: None. ANESTHESIA: Done by our anesthesia colleagues. ANTICOAGULATION: On uninterrupted Coumadin. PROCEDURE IN DETAIL: After informed consent was taken, the patient was brought to the EP lab. Anesthesia was provided by our anesthesia colleagues. The patient was draped and prepped in the usual sterile fashion. The patient presented to the EP lab in sinus rhythm. Access was gained in the right femoral vein with a 6-Ukrainian and an 8-Ukrainian sheath. Left access in left femoral vein was gained with 5-Ukrainian and 6-Ukrainian sheath respectively. High right atrial catheter was an Terry, right ventricular catheter was placed, his catheter and the CS catheter were also placed. A comprehensive EP study was done including left atrial pacing and recording. Typical atrial flutter was not induced with rapid atrial pacing with and without Isuprel infusion. A 3D electroanatomic mapping was donewith the carto system. Left atrial pacing and recording Did not demonstrate a left lateral bypass tract. Dual AV marisol physiology was demonstrated. However SVT was not induced with the without Isuprel. No clear-cut echoes were demonstrated. Ablation was performed in the cavotricuspid isthmus.CS pacing and pacing from the ablation catheter at different positions on the lateral side of the ablation line were used to verify bidirectional block. We then waited for 30 minutes and rechecked and confirmed bidirectional block.Isuprel was given post-procedure, however, we could not induce atrial flutter.The patienttolerated the procedure well and did not have any complication. The patientleft the lab in sinus rhythm. Total ablation time was 8 minutes. MEASUREMENTS/EP STUDY: AA interval 702 ms, AK interval 159 ms, QT interval 382 ms, QRS duration 80 ms, R-R interval 722 ms, AH interval 71 ms, HV interval 63 ms, AV Wenckebach when pacing at cycle length 340 ms, Left atrial pacing and recording did not demonstrate left lateral bypass tract. Retrograde Wenckebach at cycle length 380 ms, Atrial ERP 600/230 ms, Retrograde ERP 600/240 ms, Atrial ERP during Isuprel washout 500/190 ms, PLAN: The patient will be observed overnight and will be discharged home tomorrow with precise followup instructions. Lino Mesa MD, [facility] Cardiac Electrophysiology Yessi MESA MD Feb 16, 2020 11:46
[2020-02-16] MEDS ORDERED: PATIENT MAY USE OWN MEDS, ALL PO SCH (12:00)
--- NOTE | 2020-02-16 12:28 | Anesthesia-General Post-Op ---
General Patient Condition Mental Status/LOC: Same as Preop Cardiovascular: Satisfactory Nausea/Vomiting: Absent Respiratory: Satisfactory Pain: Controlled Complications: Absent Post Op Complications Complications None Follow Up Care/Instructions Patient Instructions None needed. Anesthesia/Patient Condition Patient Condition Patient is doing well, no complaints, stable vital signs, no apparent adverse anesthesia problems. No complications reported per nursing. SONU FOREMAN CRNA Feb 16, 2020 12:28
[2020-02-16] MEDS ORDERED: MEPERIDINE (DEMEROL) INJ 50 MG/ML IVP ONE (12:30)
[2020-02-16] MEDS ORDERED: morphine INJ 10 MG/ML 1ML (SYR OR VIAL) IVP ONE (12:30)
[2020-02-16] MEDS: ONDANSETRON 4 MG/2 ML (SDV) Z0FRAN IVP PRN ×2 (13:48→13:49)
[2020-02-16] MEDS ORDERED: oxyCODONE/APAP 5/325MG (PERCOCET 5) TABLET PO PRN (14:30)
[2020-02-16] MEDS ORDERED: DILT120C53 PO (14:36)
[2020-02-16] MEDS ORDERED: OXYC-471 PO (14:36)
[2020-02-16] MEDS: NS IV 1000 ML 1,000 ML IV SCH ×2 (14:56→23:05)
[2020-02-17 03:38] LABS: HEMOGLOBIN 13.5 G/DL (13.3-17.7); MEAN PLATELET VOLUME 9.4 FL (7.4-10.4); RED CELL DISTRIBUTION WIDTH 16.7 % (10.0-14.5); WHITE BLOOD COUNT 11.9 10^3/uL (4.3-11.0)
[2020-02-17 04:08] LABS: BUN/CREATININE RATIO 13; CALCIUM 8.5 MG/DL (8.5-10.1); CARBON DIOXIDE 20 MMOL/L (21-32); CHLORIDE 107 MMOL/L (98-107); CREATININE SERUM 0.71 MG/DL (0.60-1.30); GFR ESTIMATED > 60; GLUCOSE 132 MG/DL (70-105); POTASSIUM 3.9 MMOL/L (3.6-5.0); SODIUM 138 MMOL/L (135-145)
[2020-02-17 04:23] VITALS: BP 109/54
[2020-02-17 08:00] VITALS: BP 109/62
[2020-02-17] MEDS: NS IV 1000 ML 1,000 ML IV SCH (08:23)
--- NOTE | 2020-02-17 09:32 | NUR ---
PT DISCHARGED HOME AFTER ALL QUESTIONS ANSWERED BY RODNEY ALDANA. PT AMUBLATED TO EXIT WITHOUT DIFFICULTIES. GROIN SITES BENIGN. ALL PERSONAL BELONGINGS WITH PATIENT.
--- NOTE | 2020-02-17 14:06 | Cardiology Discharge Summary ---
Diagnosis/Chief Complaint Date of Admission 02/16/2020 Date of Discharge 02/17/2020 Admission Diagnosis Typical atrial flutter Final/Discharge Diagnosis Successful typical atrial flutter ablation Chief Complaint/HPI Chief Complaint/HPI Symptomatic typical atrial flutter Discharge Summary Procedures Successful typical atrial flutter ablation. Dual AV marisol physiology demonstrated however there were no echoes or tachycardia with the without Isuprel. Discharge Physical Examination Normal cardiovascular examination Hospital Course Was the Problem List Reviewed?: Yes Unremarkable. Discussion & Recommendations Discussion Discharge took over 30 minutes to complete. The procedure were discussed at length with the patient. The patient will continue on the same medications. Follow up appt.: Dr. Mesa in 2-3 weeks. Dicharge Diet: Cardiac Diet Activity as Tolerated: Yes Home Medications Reviewed patient Home Medication Reconciliation performed by pharmacy medication reconciliations lens coating technician and/or nursing. Patients Allergies have been reviewed. Discharge Home Medications: Reviewed and agree with Discharge Medication list on patient's Discharge Instruction sheet Condition at discharge Stable. Instructions to patient/family Discussed at length with the patient. Yessi MESA MD Feb 17, 2020 14:06
== END 2020-02-17 09:33 | disposition home or self-care (01) ==
LOC: CATH 07:24 → ICU 13:24 → CATH 02-17 09:33
PROVIDERS: ATTEND Internal Medicine Interventional Cardiology
DX: I48.3 Typical atrial flutter (principal); I35.0 Nonrheumatic aortic (valve) stenosis; F17.210 Nicotine dependence, cigarettes, uncomplicated; I47.1 Supraventricular tachycardia; I45.10 Unspecified right bundle-branch block; E66.01 Morbid (severe) obesity due to excess calories; Z90.89 Acquired absence of other organs; Z68.41 Body mass index [BMI] 40.0-44.9, adult; Z79.899 Other long term (current) drug therapy; Z95.2 Presence of prosthetic heart valve; Z83.3 Family history of diabetes mellitus; Z82.3 Family history of stroke
CPT/HCPCS: 80048; 80053; 85027 ×2; 85610; 85730; 87081; 93005 ×2; 93613; 93623; 93653; C1730 ×3; C1894 ×3; 36415

== ENCOUNTER 2020-02-19 07:42 | Emergency (ER) | payer BC ==
[~2020-02-19] VITALS: Ht 180.3 cm; Wt 143.2 kg
[~2020-02-19 07:42] MED LIST changes: +ACET325T49 PO; +DILT120C53 PO; +DILTIAZEM PO; +LORA-405 PO; +OXYC-471 PO
--- OUTSIDE RECORDS SUMMARY | 2020-02-19 07:50 | XMS REPORT | Encounter Summary ---
Author Author [facility] Organization [facility] Address Unknown Phone Unavailable Care Team Providers Care Production Posting Clerk Name Role Phone AmadouNichol PCP Encounter Details Care Team Description Date Type Department Scanning, Interface 12/17/2019 Documentation [facility] [address] [place] [address] Social History Date Tobacco Use Types Packs/Day [...]
--- OUTSIDE RECORDS SUMMARY | 2020-02-19 07:50 | XMS REPORT | Clinical Summary ---
Author Author [facility] Organization [facility] Address Unknown Phone Unavailable Care Team Providers Care Business Manager [employer] Name Role Phone Nichol Tobar PCP Allergies [...] Encounters Care Team Description Date Type Specialty Tone Medina MD 01/29/2020 Documentation Cardiology Scanning, Interface 12/17/2019 Documentation Reuben Li MD [...] type; Severe obesity (BMI >= 40) ([facility]) 12/01/2019 [facility] Cardiothoracic Surg ronnie - Encounter 12/07/2019 Encounter [...] Encounter for consultation 11/28/2019 Imaging Radiology Appointment from Last 3 Months Family History Medical [...] Type Area Manufactur er 06/23/2024 [id number] / [id number] / Implant Valve Aortic Newton Flex Tissue N/A: Heart [facility] 25mm [id number] - [id number] Implant MEDICAL Implanted: Qty: 1 on 12/01/2019 by HEART Reuben Li MD at [facility] Procedures Comments Procedure Name Priority Date/Time [...] FRONTAL 1:31 PM CDT HGB K POC ([facility] ONLY) Routine 12/01/2019 1:09 PM CDT [...] r for PACS 1:59 PM CDT consultation from Last 3 Months Results * Prothrombin Time/INR--if patient on warfarin (12/07/2019 2:26 AM CDT) Only the most recent of 7 results within the time period is included. Protime 21.1 (H) 11.4 - 15.0 sec [facility] INR 1.9 (H) 0.8 - 1.2 [facility] Specimen Blood Performing Organization Address City/[facility] Ph one Number [address] [address] LABORATORIES [facility] [address] [place] [address] * Complete Blood Count (12/06/2019 12:31 AM CDT) Only the most recent of 4 results within the time period is included. WBC 9.27 4.00 - 11.00 TH/uL [facility] RBC 3.56 (L) 4.31 - 5.84 MIL/uL [facility] Hemoglobin 10.5 (L) 13.0 - 17.0 g/dL [facility] Hematocrit 30 (L) 40 - 50 % [facility] MCV 83 80 - 99 fL [facility] MCH 30 27 - 34 pg [facility] MCHC 36 32 - 36 % [facility] RDW 12.5 11.5 - 14.5 % [facility] Platelet Count 213 140 - 400 TH/uL [facility] MPV 9.8 9.4 - 12.3 fL [facility] Nucleated RBCs 0 0 - 0 /100 [facility] Specimen Blood Performing Organization Address City/[facility] Ph one Number [address] [address] LABORATORIES [facility] [address] [place] [address] * Basic Metabolic Panel (12/06/2019 12:31 AM CDT) Only the most recent of 4 results within the time period is included. Sodium 134 133 - 147 MEQ/L [facility] Potassium 3.6 3.5 - 5.3 MEQ/L [facility] Chloride 98 96 - 112 MEQ/L [facility] Carbon Dioxide 31 20 - 32 MEQ/L [facility] Anion Gap 4 (L) 5 - 17 [facility] Calcium 8.7 8.4 - 10.5 mg/dL [facility] Glucose 111 (H) 70 - 100 mg/dL [facility] Blood Urea 16 7 - 26 mg/dL [facility] Creatinine 0.8 0.6 - 1.3 mg/dL [facility] eGFR Male AA >130 60 - 200 [facility] mL/min/1.73sq [facility] eGFR Male 112 60 - 200 [facility] Non-AA mL/min/1.73sq [facility] Specimen Blood Performing Organization Address City/[facility]/Zipcode Ph one Number [address] [address] LABORATORIES [facility] [address] [place] [address] * Potassium (12/05/2019 12:45 AM CDT) Only the most recent of 4 results within the time period is included. Potassium 3.7 3.5 - 5.3 MEQ/L [facility] Specimen Blood Performing Organization Address City/[facility]/Zipcode Ph one Number [address] [address] LABORATORIES [facility] [address] [place] [address] * XR Chest 2 views (PA and lateral) (12/04/2019 7:12 AM CDT) Specimen Impressions Performed At Left worse than right bibasilar subsegmental atelecta ses. LEFTYKATHRYN Mildly interstitial pulmonary edema. READING SITE: Home, due to Covid-19 Narrative Performed At Patient: TRUPTI PARRISH Sex#: M #: 1985 Taylor# : [id number] Location: [address] eduarda#: [id number] Procedure Requested: [id number] XR CHEST 2 VIEWS (PA AND LATERAL) [...] TRUPTI PARRISH Sex#: M #: 1985 Taylor#: [id number] Location: [place] [id number] Procedure Requested: [id number] XR CHEST 2 VIEWS (PA AND LATERAL) [...] due to Covid-19 Performing Organization Address City/State/Zipcode one Number [facility] * Electrocardiogram (ECG) (12/04/2019 3:39 AM CDT) Only the most recent of 2 results within the time period is included. 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1985 Requested By: JIMMY RAMÍREZ Order Number: [id number] Reading MD: Ronnell Damian Measurements Intervals Mingo Rate: 120 P: 37 WY: 148 QRS: 15 QRSD: 102 T: 29 QT: 328 QTc: 464 Interpretive Statements SINUS TACHYCARDIA PROBABLE LEFT VENTRICULAR HYPERTROPHY ST ELEVATION, CONSIDER PERICARDITIS Electronically Signed On 12-04-2019 10:36 :48 CDT by Ronnell Damian Procedure Note Interface, External Ris In - 12/04/2019 10:36 AM CDT [facility] Test Date: 2019-12-04 Pat Name: TRUPTI PARRISH Department: [address] Room: 10 Gender: Male 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: 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 : 1985 Requested By: JIMMY RAMÍREZ Order Number: [id number] Reading MD: Ronnell Damian Measurements Intervals Mingo Rate: 120 P: 37 WY: 148 QRS: 15 QRSD: 102 T: 29 QT: 328 QTc: 464 Interpretive Statements SINUS TACHYCARDIA PROBABLE LEFT VENTRICULAR HYPERTROPHY ST ELEVATION, CONSIDER PERICARDITIS Electronically Signed On 12-04-2019 10:36:48 CDT by Ronnell Damian Performing Organization Address City/[facility] Ph one Number [facility] * GLUCOSE POC (12/03/2019 7:42 AM CDT) Only the most recent of 21 results within the time period is included. Glucose POC 134 (H) 70 - 100 mg/dL [facility] Specimen Performing Organization Address City/[facility] Ph one Number [address] [address] LABORATORIES * XR Chest single view frontal (12/02/2019 9:40 AM CDT) Only the most recent of 3 results within the time period is included. Specimen Impressions Performed At Mildly improved interstitial pulmonary edema. Mild bi basilar MCKESSON subsegmental atelectases. Probable smal l left pleural effusion. Support apparatus as described. READING SITE: Home, due to Covid-19 Narrative Performed At Patient: TRUPTI PARRISH [place] Sex#: M #: 1985 Taylor# : [id number] Location: [address] ICU [id number] Access ion#: [id number] Procedure Requested: [id number] XR CHEST SINGLE VIEW FRONTAL Reason for [...] TRUPTI PARRISH Sex#: M #: 1985 Taylor#: [id number] Location: [address] ICU [id number] Procedure Requested: [id number] XR CHEST SINGLE VIEW FRONTAL Reason for [...] Ventura MD 12/01/2019 5:3 3 PM ISABELLA 34238- Probe placement, image acquistio n & report, 70402- Doppler, pulse wave and/or continuous with spectral di splay and 44338- Doppler color flow velocity mappingPerforming Physician: Michael [...] CDT) Hemoglobin 15.7 13.0 - 17.0 g/dL [facility] Potassium 5.4 (H) 3.5 - 5.3 MEQ/L [facility] Specimen Performing Organization Address City/State/Zipcode Ph one Number [address] [address] LABORATORIES * ANESTHESIA PA CATH (12/01/2019 11:54 [...] Calcium 4.3 (L) 4.5 - 5.3 mg/dL [facility] Sodium 132 (L) 133 - 147 MEQ/L [facility] Potassium 6.6 (C) 3.5 - 5.3 MEQ/L [facility] Specimen Arterial Performing Organization Address City/State/Zipcode Ph one Number [address] [address] LABORATORIES [facility] [address] [place] [address] * Arterial Blood Gas + Coox (12/01/2019 10:51 AM CDT) Only the most recent of 3 results within the time period is included. Hemoglobin 12.1 (L) 13.0 - 17.0 g/dL [facility] Whole Blood [facility] Oxyhemoglobin 95.8 95.0 - 100.0 % B [facility] Carboxyhemoglob 3.4 (H) 0.0 - 1.5 % B [facility] in [facility] Methemoglobin 0.5 0.0 - 1.5 % B [facility] Total Oxygen 99.7 95.0 - 100.0 % [facility] Saturation [facility] O2 Content 16.7 (L) 17.0 - 100.0 mL/dL [facility] Arterial [facility] PO2 Arterial 177 (H) 80 - 100 mm Hg [facility] pCO2 Arterial 41 35 - 45 mm Hg [facility] pH Arterial 7.31 (L) 7.35 - 7.45 units [facility] Bicarbonate 20.6 19.0 - 29.0 MEQ/L [facility] Base Excess -5.4 (L) -3.0 - 3.0 MEQ/L [facility] Specimen Arterial Performing Organization Address City/State/Zipcofl Ph one Number [address] [address] LABORATORIES [facility] [address] [place] [address] * Tissue Pathology or Biopsy (12/01/2019 10:38 AM CDT) Specimen Tissue - Aortic Valve Narrative Performed At [facility] Pathology Group [facility] SURGICAL PATHOLOGY REPORT PATIENT: TRUPTI PARRISH /AGE/SEX: 1985 (Age: 34) /M ID #: [id number] SUBMITTING PHYSICIAN: Traci Leiva MD CLIENT: [facility] COLLECTED: 12/01/2019 REPORTED: 12/02/2019 SPECIMEN #: [id number] ##################MICROSCOPIC INTERPRET ATION################## Cardiac aortic valve, excision with noris ve replacement: - Nodular calcification and degen erative change. Melva Benitez M.D. Report Electronically Signed Out CDW:12/02/19 ELISA([facility]) CLINICAL HISTORY/IMPRESSION: Aortic valve. SPECIMEN LABELED: Aortic valve GROSS DESCRIPTION: The specimen is received in neutral buf fered formalin, labeled with the patient name and further designated "aortic noris ve." The specimen consists of a 3.2 x 2.7 x 0.6 cm coughlin-white and rubbery piece of soft tissue. Sectioning reveals a red-yellow, calcified cut surface. Hide Dropper sections are submitted in cassette A1 after decalcification. (MJ) serene Professional Component performed by ELISA , a [facility] Pathologist located at [facility], [address] [place] [address] Technical Component performed at [facility] rhett [place], [place] [id number] If immunohistochemical stains and or in situ hybridization are cited in this report, the performance characteristics were determined by [facility] Pathology Group in compliance with [...] specimens. This testing was developed b sweetie [facility]ology [facility]. It has not been cleared or approved by the FDA. The FDA has determined that such clearance or approval is not necessary. ###END OF REPORT### Performing Organization Address City/[facility] Ph one Number [facility] [address] [place], [place] [address] [address] * Activated Clotting Time POC (12/01/2019 10:33 AM CDT) Only the most recent of 3 results within the time period is included. Activated 543 (H) 99 - 130 sec [facility] Clotting Time [facility] Specimen Performing Organization Address City/[facility] Ph one Number [facility] [address] [place] [address] LABORATORIES * Retype Patient ABORH (12/01/2019 7:32 AM CDT) ABORH Type A Positive [facility] Confirm Blood Yes [facility] Specimen Blood Performing Organization Address City/[facility] Ph one Number [facility] [address] [place] [phone] LABORATORIES [facility] [address] [place] [address] * Hemoglobin A1C (12/01/2019 7:23 AM CDT) Hemoglobin A1C 5.6 4.0 - 5.6 % [facility]: Hospital Lab Non-diabetic 4.0 - 5.6 % Prediabetes 5.7 - 6.4 % Diabetes >= 6.5 % Specimen Blood Performing Organization Address City/[facility] one Number [address] [address] LABORATORIES [facility] [address] [place] [address] * IR Outside images for PACS (12/01/2019 7:23 AM CDT) Only the most recent of 3 results within the time period is included. Specimen Performing Organization Address City/[facility] Ph one Number [place] * RBCs 2 Units (12/01/2019 7:10 AM CDT) 01 - PRODUCT ID Red Blood Cells [facility] 01 - UNIT [id number] [facility] 01 - CROSS Compatible [facility] 01 - STATUS Ready [facility] CymaxS [facility] 01 - PRODUCT [id number] [facility] 01 - BLOOD TYPE A Pos [facility] 02 - PRODUCT ID Red Blood Cells [facility] 02 - UNIT [id number] [facility] 02 - CROSS Compatible [facility] 02 - STATUS Ready [facility] 02 - PRODUCT [id number] [facility] 02 - BLOOD TYPE A Pos [facility] Specimen Blood Performing Organization Address City/State/Zipcode Ph one Number [facility] [address] [place] [address] LABORATORIES * Antibody Screen (12/01/2019 7:10 AM CDT) Antibody Screen Negative Negative [facility] Specimen Blood Performing Organization Address City/State/Zipcode Ph one Number [facility] [address] [place] [address] LABORATORIES [facility] [address] [place] [address] * ABORH Type (12/01/2019 7:10 AM CDT) ABORH Type A Positive [facility] Specimen Blood Performing Organization Address City/State/Zipcode Ph one Number [facility] [address] [place] [address] LABORATORIES [facility] [address] [place] [address] * XMATCH (12/01/2019 6:25 AM CDT) Specimen Blood Performing Organization Address City/State/Zipcode Ph one Number [facility] [address] [place], [place] [address] * [place] Outside images for PACS (11/28/2019 2:02 PM CDT) Only the most recent of 2 [...] PM CDT) Only the most recent of 3 results within the time period is included. Specimen Performing Organization Address City/State/Zipcode Ph one Number [place] from Last 3 Months Insurance Type Payer Benefit Subscriber ID Effective Phone Address Plan / Dates Group [employer] BC OUT OF xxxxxxxxxxxx 19 20- AREA Present [employer] L [employer] BC OUT OF xxxxxxxxxxxx 19 20- AREA [facility] Present CARE Advance Directives For more information, please contact: [phone] Patient Hide Dropper Explanation Type Date Recorded Health Care Directive Date Inactivated Comments Code Status Date Activated 12/07/2019 4:40 PM Full Code 12/01/2019 12:12 PM
--- OUTSIDE RECORDS SUMMARY | 2020-02-19 07:50 | XMS REPORT | Encounter Summary ---
Author Author [facility] Organization [facility] Address Unknown Phone Unavailable Care Team Providers Care Broke Man Name Role Phone Nichol Tobar PCP Encounter Details Care Team Description Date Type Department Tone Medina MD [address] [place] [address] [phone] 01/29/2020 Documentation [facility] [address] [place] [address] Social History Date Tobacco Use Types Packs/Day [...]
--- OUTSIDE RECORDS SUMMARY | 2020-02-19 07:50 | XMS REPORT | Encounter Summary ---
Author Author [facility] Organization [facility] Address Unknown Phone Unavailable Care Team Providers Care Shed Boss Name Role Phone Nichol Tobar PCP Reason for Referral * Rehabilitation - Outpatient (Routine) Referred By Contact Referred To Contact Status Reason Specialty Diagnoses / Procedures Reuben Li MD [address] [id number] Closed Specialty Services Cardiac Diagnoses Required Rehabilitation S/P AVR (aortic valve replacement) Reason for Visit * Auth/Cert Referred By Contact Referred To Contact Status Reason Specialty Diagnoses / Procedures Diagnoses AORTIC STENOSIS P rocedures AZ RPLCMT PROST AORTIC VALVE OPEN XCP HOMOGRF/STENT AORTIC VALVE REPLACEMENT (MECHANICAL) ECHOCARDIOGRAM, TRANSESOPHAGEAL POSSIBLE REPLACEMENT OF ASCENDING AORTA Encounter Details Care Team Description Date Type Department Reuben Li MD [address] [id number] S/P mechanical AVR (aortic valve replace ment) (Primary Dx); Encounter for consultation; Acute post-operative pain; Hypoxemia; Leukocytosis, unspecified type; Severe obesity (BMI >= 40) ([facility]) 12/01/2019 [facility] Encounter [address] [facility] 12/07/2019 [place], [place] [id number] Social History Date Tobacco Use Types Packs/Day [...] Mass Index documented in this encounter Discharge Summaries * Margo Wayne RN ANP - 12/07/2019 10:24 AM CDT [facility] Cardioth[facility] Vascular Discharge Summary Admission Date: 12/01/2019 Discharge Date: 12/07/2019 PCP: Nichol Tobar APRN Today I had the pleasure of discharging Trupti Juarez from the [facility] following Procedure(s): AORTIC VALVE REPLACEMENT WITH 25MM [facility] MECHANICAL ECHOCARDIOGRAM, TRANSESOPHAGEAL, performed by Primary: Reuben Li MD on 12/01/2019. As you know, Trupti Juarez 34 y.o. male has history of bicuspid aortic valve with severe stenosis, ascending aortic aneurysm and VT s/p ablation in 10/2018. In 201 8 he developed VT requiring defibrillation. He was referred to [facility] in [place] for EPS with RFA, which was preformed in October 2018. Audrey oates has not had an ICD implanted. Loop recorder was also placed at some point. Dur ing the time of the ablation he was found to have a bicuspid aortic valve with s tenosis; and ascending aortic aneurysm, measuring 4.4cm. Over the last year he h as noted a progressive decline in overall function with associated fatigue, palp itations, shortness of breath and chest pain. Per records the loop recorder has not shown any evidence of arrhythmias. Echocardiogram from June 2019 demonstr ated an EF of 60-65%, severe aortic stenosis and ascending aorta measuring 5.0cm . Cardiac cath showed normal coronaries. He has been following with Dr. Medina in [facility]. He has been referred by Dr. Medina for surgical evaluation for bi cuspid aortic valve with severe stenosis and ascending aortic aneurysm. Mr. Juarez was admitted to [facility] and underwent mechanical AVR on 12/01/2019 as per ab ove. Postoperatively, Trupti Juarez has done well.. While on the step-down unit, Trupti Juarez had tachycardia, which improved with up -titration of beta blockers. He had expected post operative pain, which has impr parris. He has been weaned off of supplemental oxygen. He is doing well with activ ity, eating well and has moved his bowels. Warfarin was started on 12/02/2019 and has been titrated appropriately. He will discharge on 10 mg of Coumadin and his INR is 1.9 on the day of discharge. This will be set up for monitoring by his c ardiologist in [place], Dr Reji Jacob. He has been given a paper script to have this checked on Sunday at his local hospital in the outpatient lab. He has continued to progress post operatively with no pressing issues. He is w alking, and tolerating food and fluids. All labs and CXR are within normal linit s and his rhythm has been stable in the post op period. Medications have been t itrated appropriately and we feel that he has achieved maximum hospital benefit at this time and is ready for discharge home. The patient has received instructions on healthy diet, activity, incisional care and sternal precautions. He has also received education on warfarin therapy and endocarditis prophylaxis. He is stable for discharge to home with self care. Criteria Met for Discharge: a stable rhythm ambulating eating bowel movement vital signs stable We feel at this time that the patient is ready for discharge. Discharge Diagnosis: Patient Active Problem List Diagnosis SNOMED CT(R) VT (ventricular tachycardia) ([facility]) VENTRICULAR TACHYCARDIA Morbid obesity ([facility]) MORBID OBESITY Aortic stenosis due to bicuspid aortic valve CONGENITAL STENOSIS OF AORTIC V ALVE Ascending aorta dilatation ([facility]) ASCENDING AORTA DILATATION Anxiety ANXIETY Hypersomnolence HYPERSOMNIA Cigarette nicotine dependence without complication NICOTINE DEPENDENCE Aortic stenosis AORTIC VALVE STENOSIS S/P mechanical AVR (aortic valve replacement) HISTORY OF AORTIC VALVE REPLAC EMENT Hypoxemia HYPOXEMIA Hyperkalemia HYPERKALEMIA Severe obesity (BMI >= 40) ([facility]) MORBID OBESITY Acute post-operative pain ACUTE POSTOPERATIVE PAIN Leukocytosis LEUKOCYTOSIS Hyponatremia HYPONATREMIA Lab Results: Last 3 CBC Results (within last 7 [...] 118* CALCIUM mg/dL 8.7 -- 8.1* 8.0* Last 3 INR Results (within the last 7 days): Most Recent Result within the last 7 days Lab Units 12/07/19 0226 12/06/19 0031 12/05/19 0045 INR 1.9* 1.5* 1.4* Last hgba1c Hemoglobin A1C Date Value Ref Range Status 12/01/2019 5.6 4.0 - 5.6 % Final Comment: Non-diabetic 4.0 - 5.6 % Prediabetes 5.7 - 6.4 % Diabetes >= 6.5 % Vitals: 12/07/19 0518 12/07/19 0738 BP: 110/70 Pulse: 86 Resp: 18 Temp: 36.6 C (97.9 F) SpO2: 95% Weight: (!) 137.7 kg (303 lb 9.6 oz) Height: Ejection Fraction: Admission Weight: Weight: (!) 140.7 kg (310 lb 3 oz) Current Weight: Weight: (!) 137.7 kg (303 lb 9.6 oz) Dismissal Plan: Trupti Juarez will be discharged to home with self care. Post-Operative Instructions: Post-Op Sternotomy Discharge Instructions: No heavy lifting greater than 5-10 pds for 6-8 weeks No driving for 2 weeks or while on narcotic pain medications Keep all incisions clean and dry. Wash incisions daily with soap and water. Be sure to wash incisions first and the rest of your body areas after to prevent cross contamination from perineal areas. Change your washcloth daily. Do not submerge your incision in water until it is fully healed. Do not use ointments, creams, or powders on your incisions. Call our office with any of the following: -Your incision becomes reddened or hot to touch. -If there is any drainage from your incision. -Temperature > 101.0 F -If you notice your incision borders are pulling apart or gaping . -Increased shortness of breath -If your pain is uncontrolled on the medication you were sent ho me with. Hygiene Guidelines: Keep incisions clean and dry Wash your incisions with soap and water every day and allow to pat or air dry and leave open to air No creams or ointments on your incision Follow-up Instructions: 3-4 weeks in the surgeons office. Office will contact you with appt time. Discharge Medications: Discharge Medications New Medications Indication(s) aspirin 81 MG chewable tablet 81 mg, Oral, Daily Start taking on: December 08, 2019 gabapentin 300 MG capsule Commonly known as: NEURONTIN 300 mg, Oral, 3 times daily Lidocaine 5 % patch Commonly known as: LIDODERM 1 patch, Transdermal, Daily, Remove & Discard patch within 12 hours or as directed by MD Start taking on: December 08, 2019 oxyCODONE 5 MG immediate release tablet Commonly known as: ROXICODONE 5-10 mg, Oral, Every 6 hours PRN * warfarin 10 MG tablet Commonly known as: COUMADIN 10 mg, Oral, Every evening * warfarin 1 MG tablet Commonly known as: COUMADIN 1 mg, Oral, Take as directed, Take as directed by INR * There are duplicate medications prescribed to the patient Medications To Continue Indication(s) LORazepam 0.5 MG tablet Commonly known as: ATIVAN 0.5 mg, Oral, Every 6 hours PRN metoprolol succinate 200 MG 24 hr tablet Commonly known as: TOPROL-XL 200 mg, Oral, Every evening EDEN inhibitor therapy was not prescribed due to EF > 40%. Thank you for the opportunity to participate in [facility]. If you should have any questions or concerns, please do not hesitate to contact us at . Margo Wayne 12/07/2019 10:37 AM documented in this encounter Discharge Instructions * [...] stay. ? Parking entrance at either the [facility]([address] Entrance 4, with [place] parking or at at the [facility], Entrance 1. Screeners will be locate d [...] RN ANP - 12/07/2019 7:14 AM CDT [facility] Cardiothoracic [facility] Vascular POST-OP Progress Note Date: 12/07/2019 POD #6 Mechanical AVR ([facility]) Surgeon: Guillermo Subjective: no complaints this am, off oxygen, HR controlled Vitals: Vitals: 12/07/19 0354 12/07/1918 BP: 93/74 Pulse: 99 Resp: 16 Temp: [...] oz) Weight Trend: Vitals: 12/04/19 0335 12/05/19 03312/06/19 03312/07/19517 Weight: (!) 138.8 kg (306 lb) (!) [...] 10/2018 - follows with Dr. Medina in [place], [place] 5. Obesity 6. Chronic anticoagulation - on warfarin - goal INR 2.0-3.0 7. Expected acute pain 8. Hyponatremia 9. Leukocytosis 10. Tachycardia- resolved, back on Toprol XL 100 mg bid Plan: INR is 1.9 today. Plan to discharge. PPE Statement: RODNEY Christy and Dr Brown used Yellow precautions (L evel 1 mask worn over level 3 mask and gloves) during the patient encounter. Margo Wayne ANP-C 12/07/2019 7:15 AM * Kristen Cox - 12/06/2019 11:50 AM CDT Patient completed ambulation in hallway with cardiac rehabilitation program director/mobility team unde r direction of nursing staff. * Margo Wayne RN ANP - 12/06/2019 7:25 AM CDT [facility]ascular POST-OP Progress Note Date: [...] Intake/Output Summary (Last 24 hours) at 12/06/2019 0787 Last data filed at 12/06/2019 0400 Gross [...] 10/2018 - follows with Dr. Medina in [place], [place] 5. Obesity 6. Chronic anticoagulation - [...] and gloves) during the patient encounter. Margo FORD-Navarro 12/06/2019 7:25 AM * Kristen Cox - 12/05/2019 1:45 PM CDT Patient completed ambulation in hallway with cardiac rehabilitation program director/mobility team unde r direction of nursing staff. * Alisia Chaparro NP - 12/05/2019 6:34 AM CDT [facility] Cardiothoracic [facility] Vascular POST-OP Progress Note Date: [...] days Lab Units 12/04/19 0115 12/03/19 0125 12/01/19 2351 WBC TH/uL 17.48* 17.05* 20.22* HEMOGLOBIN g/dL 11.2* 12.5* 14.0 HEMATOCRIT % 31* 36* 39* PLATELET COUNT TH/uL 146 160 175 Last 3 BMP Results (within the last 7 days): Most Recent Result within the last 7 days Lab Units 12/05/19 0045 12/04/19 0115 12/03/19 0125 12/01/19 2351 SODIUM MEQ/L -- 129* 129* -- [...] the last 7 days Lab Units 12/05/19 004 INR 1.4* Cultures: n/a ABx: n/a Weight [...] 10/2018 - follows with Dr. Medina in [place], [place] 5. Obesity 6. Chronic anticoagulation - [...] Chaparro AGNP-C 12/05/2019 6:34 AM * Fifi Bach FNP - 12/04/2019 6:10 AM CDT [facility] Vascular POST-OP Progress Note Date: [...] days Lab Units 12/04/19 0115 12/03/19 0125 12/01/19 2351 WBC TH/uL 17.48* 17.05* 20.22* [...] the last 7 days Lab Units 12/04/19 011 INR 1.2 Cultures: n/a ABx: no Weight [...] s/p ablation. Follows with Dr. Medina in [place]. 4. Post operative pain, expected. Received 2 doses Toradol yesterday. Prn oxycod one, APAP, scheduled Neurontin. 5. Hyponatremia. Na 129 again. Monitor. Home when O2 weaned, INR therapeutic. Lives in [place], [place]. PPE Statement: MARIA A العراقي and [...] Stated he is interested in attending at [facility] in [place], [place]. Given jn galvan from program. I will fax his contact information and order to the program for follow-up with him at home. * Fifi Bach FNP - 12/03/2019 6:15 AM CDT [facility] Cardiothoracic [facility] Vascular POST-OP Progress Note Date: [...] Trupti Juarez DATE of SERVICE: 12/02/2019 CPI: [id number] AGE: 34 y.o. : 1985 DATE OF [...] AoV gradient 45 07/22 Ascending aorta dilatation ([facility]) 06/2019 5.0 cm ascending aorta; 3.5 cm at sinuses of Valsalva Depression Morbid obesity (HCC) VT (ventricular tachycardia) ([facility]) 05/2018 with aberrancy PAST SURGICAL HISTORY: Past Surgical History: Procedure Laterality Date CARDIAC CATHETERIZATION 05/21/2018 normal cors. dilated ascending aorta (47 mm in diameter) CARDIAC CATHETERIZATION 07/10/2019 Performed in [place]. Normal ccoronaries. ELECTROPHYSIOLOGY STUDY POSSIBLE RFA OF SVT 10/2018 Performed at [facility] (AVNRT ablation of slow pathway) IMPLANTABLE LOOP RECORDER PLACEMENT Performed in [place], [place] RIGHT HEART CATHETERIZATION 07/10/2019 Performed in [place]. RA 14 RV 37/14 PA 39/13/28 PCWP [...] gabapentin, and Lidoderm patch. CI 3.3, 3.4. [employer]CH[employer]IS[employer] 390. ROS: 10 points reviewed and found [...] Trupti Juarez DATE of SERVICE: 12/01/2019 CPI: [id number] AGE: 34 y.o. : 1985 DATE OF [...] AoV gradient 45 07/22 Ascending aorta dilatation ([facility]) 06/2019 5.0 cm ascending aorta; 3.5 cm at sinuses of Valsalva Depression Morbid obesity (HCC) VT (ventricular tachycardia) ([facility]) 05/2018 with aberrancy PAST SURGICAL HISTORY: Past Surgical History: Procedure Laterality Date CARDIAC CATHETERIZATION 05/21/2018 normal cors. dilated ascending aorta (47 mm in diameter) CARDIAC CATHETERIZATION 07/10/2019 Performed in [place]. Normal ccoronaries. ELECTROPHYSIOLOGY STUDY POSSIBLE RFA OF SVT 10/2018 Performed at [facility] (AVNRT ablation of slow pathway) IMPLANTABLE LOOP RECORDER PLACEMENT Performed in [place], [place] RIGHT HEART CATHETERIZATION 07/10/2019 Performed in [place]. RA 14 RV 37/14 PA 39/13/28 PCWP [...] reviewed all of these findings and reviewed th e CXR imaging. The overall assessment and plans for the day are discussed and do cumented in the Medical Record Note. I was personally present and involved in al l aspects of patient care. Critical care time 35 min KIM Ho documented in this encounter H&P Notes * Reuben Li MD - 12/01/2019 7:14 AM CDT [facility] H&P NAME: Trupti Juarez ADMISSION DATE: 12/01/2019 : 1985 AGE: 34 y.o. PCP: Reji Jacob MD ATTENDING: Reuben Li MD HISTORY OF PRESENT ILLNESS: Mr. Juarez is a pleasant 34 y.o. male who presents to [facility] this morning for aortic valve replacement [...] requiring defibrillat ion. He was referred to [facility] in [place] for EPS with RFA, which was preformed [...] been following with Dr. Medina in the [place] [facility]. He has been referred by Dr. [...] Depression Morbid obesity (HCC) VT (ventricular tachycardia) ([facility]) 05/2018 with aberrancy PAST SURGICAL HISTORY: Past Surgical History: Procedure Laterality Date CARDIAC CATHETERIZATION 05/21/2018 normal cors. dilated ascending aorta (47 mm in diameter) CARDIAC CATHETERIZATION 07/10/2019 Performed in [place]. Normal ccoronaries. ELECTROPHYSIOLOGY STUDY POSSIBLE RFA OF SVT 10/2018 Performed at [facility] (AVNRT ablation of slow pathway) IMPLANTABLE LOOP RECORDER PLACEMENT Performed in [place], [place] RIGHT HEART CATHETERIZATION 07/10/2019 Performed in [place]. 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 The cath report describes an ascending aortic aneurysm, but on reviewi ng the aortogram I see no morphologic evidence of an aneurysm and his sinotubula r junction is clearly intact. I have reviewed three recent CTs of the chest and on those studies the the maximal diameter of the ascending aorta is 4.3 cm, whi is minimally dilated for a man of [...] in this encounter Nursing Notes * Jody Lagos, RODNEY - 12/04/2019 7:00 PM CDT 1740: Toprol [...] PRN IV dilau did (see MAR). [facility] LOCAL COMBINATION TRUCK DRIVER, Cara Hollis, called. LOCAL COMBINATION TRUCK DRIVER ordered a one time dose of vickie apentin 200mg and PRN IV toadol q 6 hrs. documented in this encounter Miscellaneous Notes * Discharge Planning - Savita Tarango RN - 12/08/2019 10:24 AM CDT Discharge Planning Interventions General Discharge Note Anticipated discharge disposition: Home Self Care DC Wednesday 12/06 Faxed DC Summary to Dr Jacob @ [phone] Nichol Tobar@ [phone]. Radha Tarango RN [facility] [phone] * Nursing Discharge - Dinora Ledezma RN - 12/07/2019 2:34 PM CDT Nursing Discharge Note Discharge instructions reviewed with patient. All questions and concerns answere d. Prescriptions and temporary valve card given to patient. Taken out via wheelc hair with all of belongings. Patient/family satisfied with progress made towards goals and ready for discharg e. * Emiliano patient edu - Dinora Ledezma [...] information carefully each time. Talk to your computerized machine fabric cutter regarding the use of this medicine in children. Speci al care may be needed. What side effects may I notice from receiving this medicine? Side effects that you should report to your doctor or health inspector health care facilities as soon as possible: allergic reactions like [...] (report to your doc tor or health inspector health care facilities if they continue or are bothersome): diarrhea [...] this medicine? Visit your doctor or health inspector health care facilities for regular checks on your progre ss. [...] oft en. Notify your doctor or health inspector health care facilities and seek emergency treatment if you develop [...] phone number of your doctor or health inspector health care facilities or person to contact in an emergency. Do not start taking or stop taking any medicines or cowu-hez-[id number] medicines except on the advice of your doctor or health inspector health care facilities. You should discuss your diet with your doctor or health inspector health care facilities. Do n ot make major changes in [...] risks and her options with her health inspector health care facilities. Avoid sports and activities that might cause injury while you are using this me dicine. Severe falls or injuries can cause unseen bleeding. Be careful when usin g sharp tools or knives. Consider using an electric razor. Take special care bru shing or flossing your teeth. Report any injuries, bruising, or red spots on the skin to your doctor or health inspector health care facilities. If you have an illness that causes [...] ntal work, tell your doctor or health inspector health care facilities that you have been takin g this medicine. NOTE:This sheet is a summary. It may not cover all possible information. If you have questions about this medicine, talk to your doctor, pharmacist, or health care provider. Copyright 2020 [employer] * [facility] edu - Dinora Ledezma RN - [...] information carefully each time. Talk to your computerized machine fabric cutter regarding the use of this medicine in children. Speci al care may be needed. What side effects may I notice from receiving this medicine? Side effects that you should report to your doctor or health inspector health care facilities as soon as possible: allergic reactions like [...] (report to your doc tor or health inspector health care facilities if they continue or are bothersome): constipation [...] the [facility] at or your [facility] government to find a site. If you cannot return the medicine, flush it down the toilet. Do not use the med icine after the expiration date. What should I tell my health care provider before I take this medicine? They need to know if you have any of these conditions: Bandera's disease brain tumor head injury heart disease [...] this medicine? Tell your doctor or health inspector health care facilities if your pain does not go away, [...] days, call your docto r or health inspector health care facilities. Your mouth may get dry. Chewing sugarless gum or sucking hard candy, and drinki ng plenty of water may help. Contact your doctor if the problem does not go away or is severe. NOTE:This sheet is a summary. It may not cover all possible information. If you have questions about this medicine, talk to your doctor, pharmacist, or health care provider. Copyright 2020 [employer] * Emiliano patient juan - Dinora Ledezma RN - 12/07/2019 12:13 PM CDT 1504 Gabapentin capsules or tablets What is this [...] information carefully each time. Talk to your computerized machine fabric cutter regarding the use of this medicine in children. While this drug may be prescribed for children as young as 3 years for selected condi tions, precautions do apply. What side effects may I notice from receiving this medicine? Side effects that you should report to your doctor or health inspector health care facilities as soon as possible: allergic reactions like skin rash, itching or hives, swelling of the face , lips, or tongue breathing problems suicidal thoughts, mood changes Side effects that usually do not require medical attention (report to your doc tor or health inspector health care facilities if they continue or are bothersome): dizziness [...] this medicine? Visit your doctor or health inspector health care facilities for regular checks on your progre ss. You may want to keep a record at home of how you feel your condition is resp onding to treatment. You may want to share this information with your doctor or health inspector health care facilities at each visit. You should contact your doctor or health inspector health care facilities if your seizures get worse or if you have any new types of se izures. Do not stop taking this medicine or any of your seizure medicines unless instructed by your doctor or health inspector health care facilities. Stopping your medicine s uddenly can increase [...] or dying should be reported to your [facility] inspector health care facilities right away. Women who become while using this medicine may enroll in the [facility] Antiepileptic Drug Registry by calling . This miesha stry collects information about the safety of antiepileptic drug use during preg ching. NOTE:This sheet is a summary. It may not cover all possible information. If you have questions about this medicine, talk to your doctor, pharmacist, or health care provider. Copyright 2020 [employer] * Emiliano patient edu - Dinora Ledezma RN - 12/07/2019 12:13 PM CDT [id number] Aspirin, ASA chewable tablets What is this [...] o ften than directed. Talk to your computerized machine fabric cutter regarding the use of this medicine in [...] should report to your doctor or health inspector health care facilities as soon as possible: allergic reactions like [...] (report to your doc tor or health inspector health care facilities if they continue or are bothersome): diarrhea [...] if prescribed by your doctor or health inspector health care facilities. Do not take aspirin or aspirin-like medicines [...] pharmacist, or health care provider. Copyright 2020 [employer] * Krabonnie patient edu - Dinora Ledezma RN - [...] on label or package. Talk to your computerized machine fabric cutter regarding the use of this medicine in children. While this drug may be prescribed for children as young as 12 years for selected cond itions, precautions do apply. What side effects may I notice from receiving this medicine? Side effects that you should report to your doctor or health inspector health care facilities as soon as possible: allergic reactions like skin rash, itching or hives, swelling of the face , lips, or tongue breathing problems chest pain or chest tightness dizzines Side effects that usually do not require medical attention (report to your doc tor or health inspector health care facilities if they continue or are bothersome): tingling, [...] without asking your do ctor or health inspector health care facilities. What if I miss a dose? Apply [...] s for which your doctor or health inspector health care facilities has prescribed. NOTE:This sheet is a summary. It may not cover all possible information. If you have questions about this medicine, talk to your doctor, pharmacist, or health care provider. Copyright 2020 [employer] * [facility] patient [facility] - Dinora Ledezma RN - 12/07/2019 12:13 PM CDT [id number] Hyponatremia Hyponatremia means low sodium levels in [...] confusion Fainting or loss of consciousness Seizure [phone] [employer]. [address] [place] [address] 37. All rights reserved. This information is not intended as a substitute for p feional medical care. Always follow your healthcare professional's instructi ons. * [facility] - Dinora Ledezma RN - 12/07/2019 12:13 PM CDT 34956 Eating Heart-Healthy Foods Eating has a big [...] on added fat and salt. Look on [employer] internet for lower-fat, lower-sodium recipes. Also, try [...] basil, cilantro, ci nnamon, pepper, and sunny. [phone] [employer]. [address] [place] [address]. All rights reserved. This information is not intended as a substitute for [facility] medical care. Always follow your healthcare professional's instructi ons. * Emiliano patient edu - Dinora Ledezma RN - 12/07/2019 12:13 PM CDT 18127 Heart Valve Problems: Aortic Stenosis Aortic stenosis [...] valve, even if you dont have symptoms. 3923-1101 [employer]. [address] [place] [address] 190 67. All rights reserved. This information [...] support Sari Bhardwaj,PT,DPT Physical Therapist Voalte Number: [phone] * End of Shift Note - Syl [...] setting up his follow up visit with willard card and were his INR needs to be sent. Patient from [facility]. Will use local lab. See my note from 12/03 on his kidney puller. Radha Tarango RN [facility] [phone] * Therapy Note - Jm Araujo, SUUS - 12/05/2019 12:35 PM CDT 12/05/19 1101 [...] Wm. Steven Araujo PTA III Physical Therapist Ripshear Operator Sharmin phone: [phone] * End of Shift Note - Alma [...] . Steven Araujo PTA III Physical Therapist Ripshear Operator Sharmin phone: [phone] * Discharge Planning - Savita Tarango RN - 12/04/2019 10:10 AM CDT Discharge Planning Interventions General Discharge Note Anticipated discharge disposition: Home Self Care Additional discharge planning information: POD # 3 Mech AVR Home on coumadin. INR 1.2 Weaning O2 today. PCP Dr Isidra Tobar [facility], [facility] Personal Injury Paralegal: Dr Reji Jacob, [facility] Contact: Dr Tone Meidna see patient in [place] @ [facility]. Contact: Patient'S/O Misty Dave Will provide ride home. Friends will stay with him at time of DC. Plan home self care. Radha Tarango RN [facility] [phone] * End of Shift Note - Alma [...] CG completed, awaiting return page. Repaged at 1700, page returned by Dr Roxane hudson @7804, gave TO to give Metoprolol early 0600. [...] now 120 s and 140s-150s with activity. 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 Steven Araujo PTA III Physical Therapist Ripshear Operator Sharmin phone: [phone] * End of Shift Note - Mayela [...] Spoke to his contact which is his S.Jack Almonteor Tenzin via phone as am working re william. Abdelrahman lives in separate residence but she and a friend will be providing 24/7 a sst at dc. Pt works FT and indep/ active prior to surgery No Hx amb devices/ DME/ Oxygen/ PAC facilities/ rehab PCP confirmed as Nichol Tobar, [facility] , [place], [place] Personal Injury Paralegal noe Jacob, [facility] ; Additional information: Mech AVR. Hx Bicuspid AV/ , AAA, VT/ Ablation Joleen RN continuous improvement coordinator, Arnp medical team, Superintendent Marine met for patient rounds to discuss progression [...] discharge: Family Concerns: No Pt has Payor: [facility] / Plan: BC OUT OF AREA PREF CARE / Product Type: *No Product type* / Legal Information: Patient does not have advance directive Discussion of advance directives and information provided: Yes Is the patient interested in establishing an advance directive?: No, the patient would not like to discuss establishing an advance directive Healthcare Agent Appointed: Yes Healthcare Agent's Name: Misty Tenzin (s.jack.) Healthcare Agent's Patient currently uses at home: Assistive Devices: None Respiratory items:: (Denies) Patient states their Income Source: Employed. , Income/Expense Information: Income exceeds expenses Resources Available: Rx benefits Verified that patients primary care physician is Nichol Tobar, MARY and dilip tong their medications from [facility] - [place], [place] - [address] [facility] [address] [facility] [address] Facesheet verified. Ericka Woods RN, BSN Superintendent Marine [phone] * End of Shift Note - Priscilla [...] deep breathing & I.S. use. [facility] Goals per Patient Condition Skin Integrity Plan [...] VT (ventricular tachycardia) (HCC) 05/2018 with aberrancy Patient/Family Reports Pt seen [...] him upon dc Prior Function Level of [place] Independent with ADLs;Independent with functional transfer s;Independent [...] Denise Malik PT, DPT Physical Therapist Voalte: [phone] * Therapy Note - Denise Malik PT - 12/02/2019 11:20 AM CDT 12/02/19 1120 PT Visit Info Attempted but was unable to see patient (date) 12/02/19 Reason patient was not seen Pt refused PT reason not seen - extended comment Pt declines and prefers to complete PT rita luation this afternoon. PT will return between [phone]. Notified RN of PT plan . Denise Malik PT, DPT Physical Therapist Voalte: [phone] * End of Shift Note - Adair [...] to 4L HFNC . Insulin gtt started. RETAIL SALES MERCHANDISER: 250. UOP: 1.7L. OOBTC @ 1730. Sys [...] tomorrow. Sari Bhardwaj,PT,DPT Physical Therapist Voalte Number: [phone] * Brief Operative Note - Reuben Li MD - 12/01/2019 12:21 PM CDT Brief Operative Note Trupti Juarez 12/01/2019 Event Time In Procedure / Incision Start 09 Pre-op Diagnosis: Aortic valve stenosis, bicuspid valve Post-op Diagnosis: same Procedure: AORTIC VALVE REPLACEMENT WITH 25MM [facility] JORDAN'S MECHANICAL, N/A ECHOCARDIOGRAM, TRANSESOPHAGEAL, N/A Surgeon(s) and Role: * Traci Li MD - Primary Anesthesia Type: General Staff: Assistant Teacher Primary: Cyndy Kendall RN; Melva Nair RN Manager Corporate Strategy: Christiano Quinonez CCP Physician Ripshear Operator: KIM Kessler-C Scrub Person: Estrella Pizano RN Anesthesiologist: Rusty Ventura MD Anesthesiologist Ripshear Operator: JOSÉ ANTONIO Ron Findings: Estimated Blood Loss: Specimens: . ID Source Type Tests Collected By Collected At 1 Aortic Valve Tissue TISSUE PATHOLOGY OR BIOPSY Reuben Li MD 12/01/19 1038 Description: AORTIC VALVE Comment: Pre-op diagnosis: AORTIC STENOSIS Implants: @ORIMPLANT@ Complications: PPE Statement: 2 chest tubes 1 A and 2 V pacing wires Dictation # [id number] Traci Li Date: 12/01/2019 Time: 12:21 PM * Operative Note - Reuben Li MD - 12/01/2019 12:21 PM CDT Name: TRUPTI JUAREZ MRN: Date of : 1985 Attending Physician: Traci Li MD Date of Procedure: 12/01/2019 DATE OF OPERATION: 12/01/2019 PREOPERATIVE DIAGNOSES: Symptomatic aortic valve stenosis. POSTOPERATIVE DIAGNOSIS: Symptomatic aortic valve stenosis. OPERATION: Aortic valve replacement ([employer] [place] mechanical aortic valve, alisson bowles #[id number] serial #[id number]). SURGEON: Dr. Glen Li. SIZE MAKER: KIM Martinez INDICATIONS FOR OPERATION: This 34-year-old [...] of a 25 mm S t. [place] mechanical prosthesis. This valve was calculated to [...] was closed using a combination of #6 snveio-pb-vfzec circumferential stainless steel wire and double stranded stainle ss steel wire. The remainder of the incision was closed in layers using absorba ble suture. At the end of the operation, the patient was in normal sinus rhythm with excellent hemodynamics. Traci Li MD [id number] CC: cc: Tone Medina MD, Reji Jacob [...] Protime 21.1 (H) 11.4 - 15.0 sec [facility] INR 1.9 (H) 0.8 - 1.2 [facility] Specimen Blood Performing Organization Address City/State/Zipcode Ph one Number [address] [address] LABORATORIES [facility] [address] [place] [address] * Basic Metabolic Panel (12/06/2019 12:31 AM CDT) Only the most recent of 4 results within the time period is included. Sodium 134 133 - 147 MEQ/L [facility] Potassium 3.6 3.5 - 5.3 MEQ/L [facility] Chloride 98 96 - 112 MEQ/L [facility] Carbon Dioxide 31 20 - 32 MEQ/L [facility] Anion Gap 4 (L) 5 - 17 [facility] Calcium 8.7 8.4 - 10.5 mg/dL [facility] Glucose 111 (H) 70 - 100 mg/dL [facility] Blood Urea 16 7 - 26 mg/dL [facility] Creatinine 0.8 0.6 - 1.3 mg/dL [facility] eGFR Male AA >130 60 - 200 [facility] mL/min/1.73sq m Hospital Lab eGFR Male 112 60 - 200 [facility] Non-AA mL/min/1.73sq [facility] Specimen Blood Performing Organization Address [facility] Ph one Number [address] [address] LABORATORIES [facility] [address] [place] [address] * Complete Blood Count (12/06/2019 12:31 AM CDT) Only the most recent of 4 results within the time period is included. WBC 9.27 4.00 - 11.00 TH/uL [facility] RBC 3.56 (L) 4.31 - 5.84 MIL/uL [facility] Hemoglobin 10.5 (L) 13.0 - 17.0 g/dL [facility] Hematocrit 30 (L) 40 - 50 % [facility] MCV 83 80 - 99 fL [facility] MCH 30 27 - 34 pg [facility] MCHC 36 32 - 36 % [facility] RDW 12.5 11.5 - 14.5 % [facility] Platelet Count 213 140 - 400 TH/uL [facility] MPV 9.8 9.4 - 12.3 fL [facility] Nucleated RBCs 0 0 - 0 /100 [facility] Specimen Blood Performing Organization Address City/[facility]/Zipcode Ph one Number [address] [address] LABORATORIES [facility] [address] [place] [address] * Potassium (12/05/2019 12:45 AM CDT) Only the most recent of 4 results within the time period is included. Potassium 3.7 3.5 - 5.3 MEQ/L [facility] Specimen Blood Performing Organization Address City/State/Zipcode Ph one Number [facility] [address] [place] [address] LABORATORIES [facility] [address] [place] [address] * XR Chest 2 views (PA and lateral) (12/04/2019 7:12 AM CDT) Specimen Impressions Performed At Left worse than right bibasilar subsegmental atelecta ses. LEFTYSON Mildly interstitial pulmonary edema. READING SITE: Home, due to Covid-19 Narrative Performed At Patient: TRUPTI JUAREZ Sex#: M #: 1985 [place]# : [id number] Location: [place] [address] Acces eduarda#: [id number] Procedure Requested: [id number] XR CHEST 2 VIEWS (PA AND LATERAL) [...] TRUPTI JUAREZ Sex#: M #: 1985 [place]#: [id number] Location: [address] [id number] Procedure Requested: [id number] XR CHEST 2 VIEWS (PA AND LATERAL) [...] 148 TRACEMASTER Specimen Narrative Performed At TRACEMASTER [facility] Test Date: 2019-12-04 Pat Name: TRUPTI JUAREZ Department: [address] Room: [facility] Gender: Male Wrapping Machine Tender: [id number] : 1985 Requested By: PALMA RAMÍREZ Order Number: [id number] Reading MD: Ronnell Damian Measurements Intervals [place] Rate: 120 P: 37 [place]: 148 QRS: 15 QRSD: 102 T: 29 QT: 328 QTc: 464 Interpretive Statements SINUS TACHYCARDIA PROBABLE LEFT VENTRICULAR HYPERTROPHY ST ELEVATION, CONSIDER PERICARDITIS Electronically Signed On 12-04-2019 10:36 :48 CDT by Ronnell Damian Procedure Note Interface, External Ris In - 12/04/2019 10:36 AM CDT [facility] Test Date: 2019-12-04 Pat Name: TRUPTI JUAREZ Department: [address] Room: 10 Gender: Male Wrapping Machine Tender: [id number] : 1985 Requested By: PALMA RAMÍREZ Order Number: [id number] Reading MD: Ronnell Damian Measurements Intervals [place] Rate: 120 P: 37 [place]: 148 QRS: 15 QRSD: 102 T: 29 QT: 328 QTc: 464 Interpretive Statements SINUS TACHYCARDIA PROBABLE LEFT VENTRICULAR HYPERTROPHY ST ELEVATION, CONSIDER PERICARDITIS Electronically Signed On 12-04-2019 10:36:48 CDT by Ronnell Damian Performing Organization Address [facility] one Number TRACEMASTER * GLUCOSE POC (12/03/2019 7:42 AM CDT) Only the most recent of 21 results within the time period is included. Glucose POC 134 (H) 70 - 100 mg/dL [facility] LABORATORIES Specimen Performing Organization Address [facility] one Number [address] [address] LABORATORIES * XR Chest single view frontal (12/02/2019 9:40 AM CDT) Only the most recent of 3 results within the time period is included. Specimen Impressions Performed At Mildly improved interstitial pulmonary edema. Mild bi basilar MCKESSON subsegmental atelectases. Probable smal l left pleural effusion. Support apparatus as described. READING SITE: Home, due to Covid-19 Narrative Performed At Patient: TRUPTI JUAREZ Sex#: Alisson #: 1985 [place]# : [id number] Location: [address] ICU [id number] Access ion#: [id number] Procedure Requested: [id number] XR CHEST SINGLE VIEW FRONTAL Reason for [...] TRUPTI JUAREZ Sex#: M #: 1985 [place]#: [id number] Location: [address] ICU [id number] Procedure Requested: [id number] XR CHEST SINGLE VIEW FRONTAL Reason for [...] Home, due to Covid-19 Performing Organization Address [facility] one Number [place] * HGB/K POC (12/01/2019 1:09 PM CDT) Hemoglobin 15.7 13.0 - 17.0 g/dL [facility] LABORATORIES Potassium 5.4 (H) 3.5 - 5.3 MEQ/L [facility] LABORATORIES Specimen Performing Organization Address [facility] one Number [address] [phone] LABORATORIES * Lytes//HGB/CA POC (12/01/2019 10:51 AM CDT) Only the most recent of 3 results within the time period is included. Ionized Calcium 4.3 (L) 4.5 - 5.3 mg/dL [facility] Sodium 132 (L) 133 - 147 MEQ/L [facility] Potassium 6.6 (C) 3.5 - 5.3 MEQ/L [facility] Specimen Arterial Performing Organization Address [facility] one Number [address] [address] LABORATORIES [facility] [address] [place] [address] * Arterial Blood Gas + Coox (12/01/2019 10:51 AM CDT) Only the most recent of 3 results within the time period is included. Hemoglobin 12.1 (L) 13.0 - 17.0 g/dL [facility] Whole Blood [facility] Oxyhemoglobin 95.8 95.0 - 100.0 % THB [facility] Carboxyhemoglob 3.4 (H) 0.0 - 1.5 % THB [facility] in [facility] Methemoglobin 0.5 0.0 - 1.5 % B [facility] Total Oxygen 99.7 95.0 - 100.0 % [facility] O2 Content 16.7 (L) 17.0 - 100.0 mL/dL [facility] Arterial [facility] PO2 Arterial 177 (H) 80 - 100 mm Hg [facility] pCO2 Arterial 41 35 - 45 mm Hg [facility] pH Arterial 7.31 (L) 7.35 - 7.45 units [facility] Bicarbonate 20.6 19.0 - 29.0 MEQ/L [facility] Base Excess -5.4 (L) -3.0 - 3.0 MEQ/L [facility] Specimen Arterial Performing Organization Address City/State/[place] Ph one Number [address] [address] [phone] LABORATORIES [facility] [address] [place] [address] * Tissue Pathology or Biopsy (12/01/2019 10:38 AM CDT) Specimen Tissue - Aortic Valve Narrative Performed At [facility] Pathology Group [facility] SURGICAL PATHOLOGY REPORT PATIENT: TRUPTI JUAREZ /AGE/SEX: 1985 (Age: 34) /M ID #: [id number] SUBMITTING PHYSICIAN: Traci Leiva MD CLIENT: [facility] COLLECTED: 12/01/2019 REPORTED: 12/02/2019 SPECIMEN #: [id number] ##################MICROSCOPIC INTERPRET ATION################## Cardiac aortic valve, excision with noris ve replacement: - Nodular calcification and degen erative change. Melva Benitez M.D. Report Electronically Signed Out CDW:12/02/19 ELISA([facility]) CLINICAL HISTORY/IMPRESSION: Aortic valve. SPECIMEN LABELED: Aortic valve GROSS DESCRIPTION: The specimen is received in neutral buf fered formalin, labeled with the patient name and further designated "aortic noris ve." The specimen consists of a 3.2 x 2.7 x 0.6 cm coughlin-white and rubbery piece of soft tissue. Sectioning reveals a red-yellow, calcified cut surface. [employer] Marker sections are submitted in cassette A1 after decalcification. (JOURDAN) mj Professional Component performed by ELISA , a [facility] Pathologist located at [facility], [address] [place] [address] Technical Component performed at [facility] [place] [address] If immunohistochemical stains and or in situ hybridization are cited in this report, the performance characteristics were determined by [facility]ology [facility] in compliance with [...] specimens. This testing was developed b sweetie [facility]ology [facility]. It has not been cleared or approved by the FDA. The FDA has determined that such clearance or approval is not necessary. ###END OF REPORT### Performing Organization Address City/State/[facility] Cent[facility] Ph one Number [facility] [address] [place], [place] [address] [address] * Activated Clotting Time POC (12/01/2019 10:33 AM CDT) Only the most recent of 3 results within the time period is included. Activated 543 (H) 99 - 130 sec [facility] Clotting Time [facility] Specimen Performing Organization Address City/[facility] Ph one Number [facility] [address] [place] [address] LABORATORIES * Retype Patient ABORH (12/01/2019 7:32 AM CDT) ABORH Type A Positive [facility] Confirm Blood Yes [facility] Specimen Blood Performing Organization Address City/[facility] Cent[facility] Ph one Number [facility] [address] [place] [address] LABORATORIES [facility] [address] [place] [address] * Hemoglobin A1C (12/01/2019 7:23 AM CDT) Hemoglobin A1C 5.6 4.0 - 5.6 % [facility]: [facility] Non-diabetic 4.0 - 5.6 % Prediabetes 5.7 - 6.4 % Diabetes >= 6.5 % Specimen Blood Performing Organization Address City/[facility] Cent[facility]ode Ph one Number [facility] [address] [place] [address] LABORATORIES [facility] [address] [place] [address] * IR Outside images for PACS (12/01/2019 7:23 AM CDT) Specimen Performing Organization Address City/[facility] Ph one Number [place] * RBCs 2 Units (12/01/2019 7:10 AM CDT) 01 - PRODUCT ID Red Blood Cells [facility] LAB[facility]IES 01 - UNIT [id number] [facility] 01 - CROSS Compatible [facility] 01 - STATUS Ready [facility] 01 - PRODUCT [id number] [facility] 01 - BLOOD TYPE A Pos [facility] 02 - PRODUCT ID Red Blood Cells [facility] 02 - UNIT [id number] [facility] 02 - CROSS Compatible [facility] 02 - STATUS Ready [facility] 02 - PRODUCT [id number] [facility] 02 - BLOOD TYPE A Pos [facility] Specimen Blood Performing Organization Address [facility] Ph one Number [facility] [address] [place] [address] LABORATORIES * Antibody Screen (12/01/2019 7:10 AM CDT) Antibody Screen Negative Negative [facility] Specimen Blood Performing Organization Address [facility] Ph one Number [facility] [address] [place] [address] LABORATORIES [facility] [address] [place] [address] * ABORH Type (12/01/2019 7:10 AM CDT) ABORH Type A Positive [facility] Specimen Blood Performing Organization Address [facility] Ph one Number [facility] [address] [place] [address] LABORATORIES [facility] [address] [place] [address] * XMATCH (12/01/2019 6:25 AM CDT) Specimen Blood Performing Organization Address [facility] one Number [facility] [address] [place], [place] [address] documented in this encounter [...] 4 g, Intravenous, at 25 mL/hr, Once, Id n 12/01/19 at 1245, For 1 dose, [...] 2.5 mg, Intravenous, Once, Indications: HR >120, Sun12/04/19 at 1845, For 1 dose 12/03/2019 3:35 [...] Oral, 2 times daily, First dose on Sun12/04/19 at 1800, DO NOT CRUSH OR CHEW., 100 mg Given 12/05/2019 8:26 AM CDT 100 mg Given 12/04/2019 5:39 PM CDT 12/06/2019 9:35 PM CDT 200 mg metoprolol succinate (TOPROL-XL) 24 hr Given tablet 200 mg 200 mg, Oral, Nightly, First dose (afte r last modification) on 12/06/19 at 2100, DO NOT CRUSH OR CHEW., [...] (pain score 4-6), Startin g 12/01/19 at 2059 10 mg Given 12/07/2019 9:35 [...] New Bag 25 mL/hr, Intravenous, Continuous, Starting Sun12/01/19 at 1245, For 48 hours, Discontinue maintenance [...] Oral, Every evening, First dose o n Sun12/02/19 at 1800, To start POD #1., 12/04/2019 5:39 PM CDT 7.5 mg warfarin (COUMADIN) tablet 7.5 mg Given 7.5 mg, Oral, Every evening, First dose (after last modification) on Sun12/03/19 at 1800, To start POD #1., 7.5 mg Given 12/03/2019 5:46 PM CDT documented in this encounter
--- OUTSIDE RECORDS SUMMARY | 2020-02-19 07:51 | XMS REPORT | Encounter Summary ---
Author Author [facility] Organization [facility] Address Unknown Phone Unavailable Care Team Providers Care Marketing Financial Analyst Name Role Phone Reji Jacob PCP [...]
--- OUTSIDE RECORDS SUMMARY | 2020-02-19 07:51 | XMS REPORT | Encounter Summary ---
Author Author [facility] Organization [facility] Address Unknown Phone Unavailable Care Team Providers Care Make Up Arranger Name Role Phone Reji Jacob PCP Encounter Details Care Team Description Date Type Department Encounter for consultation 11/28/2019 Imaging [facility] Virtual [...]
--- OUTSIDE RECORDS SUMMARY | 2020-02-19 07:51 | XMS REPORT | Encounter Summary ---
Author Author [facility] Organization [facility] Address Unknown Phone Unavailable Care Team Providers Care Gm Name Role Phone Reji Jacob PCP Encounter Details Care Team Description Date Type Department Encounter for consultation 11/28/2019 Imaging [facility] Virtual [facility] [...]
--- OUTSIDE RECORDS SUMMARY | 2020-02-19 07:51 | XMS REPORT | Encounter Summary ---
Author Author [facility] Organization [facility] Address Unknown Phone Unavailable Care Team Providers Care Restaurant Area Director Name Role Phone Reji Jacob PCP Reason for Visit * Auth/Cert Referred By Contact Referred To Contact Status Reason Specialty Diagnoses / Procedures Diagnoses AORTIC STENOSIS P rocedures [place] RPLCMT PROST AORTIC VALVE OPEN XCP HOMOGRF/STENT AORTIC VALVE REPLACEMENT (MECHANICAL) ECHOCARDIOGRAM, TRANSESOPHAGEAL POSSIBLE REPLACEMENT OF ASCENDING AORTA Encounter Details Care Team Description Date Type Department Reuben Li MD [address] [place] [address] [phone] AORTIC VALVE REPLACEMENT WITH 25MM [facility] J UDE'S MECHANICAL 12/01/2019 Surgery [facility] [address] [place] [address] Social History Date Tobacco Use Types Packs/Day [...] RN ANP - 12/07/2019 10:24 AM CDT [facility] Discharge Summary Admission Date: 12/01/2019 Discharge Date: 12/07/2019 PCP: Nichol Tobar APRN Today I had the pleasure of discharging Trupti Parrish from the [facility] following Procedure(s): AORTIC VALVE REPLACEMENT WITH 25MM [facility] JORDAN'S MECHANICAL ECHOCARDIOGRAM, TRANSESOPHAGEAL, performed by Primary: Reuben Li MD on 12/01/2019. As you know, Trupti Parrish 34 y.o. male has history of bicuspid aortic valve with severe stenosis, ascending aortic aneurysm and VT s/p ablation in 10/2018. In he developed VT requiring defibrillation. He was referred to [facility] in [place] for EPS with RFA, which was preformed [...] has been following with Dr. Medina in [facility]. He has been referred by Dr. Medina for surgical evaluation for bi cuspid aortic valve with severe stenosis and ascending aortic aneurysm. Mr. Parrish was admitted to [facility] and underwent mechanical AVR on 12/01/2019 as per ab ove. Postoperatively, Trupti Parrish has done well.. While on the step-down unit, Trupti Parrish had tachycardia, which improved with up -titration [...] for monitoring by his c ardiologist in [place], Dr Reji Jacob. He has been given [...] List Diagnosis SNOMED CT(R) VT (ventricular tachycardia) ([facility]) VENTRICULAR TACHYCARDIA Morbid obesity (HCC) MORBID OBESITY Aortic stenosis due to bicuspid aortic valve CONGENITAL STENOSIS OF AORTIC V ALVE Ascending aorta dilatation ([facility]) ASCENDING AORTA DILATATION Anxiety ANXIETY Hypersomnolence HYPERSOMNIA Cigarette nicotine dependence without complication NICOTINE DEPENDENCE Aortic stenosis AORTIC VALVE STENOSIS S/P mechanical AVR (aortic valve replacement) HISTORY OF AORTIC VALVE REPLAC EMENT Hypoxemia HYPOXEMIA Hyperkalemia HYPERKALEMIA Severe obesity (BMI >= 40) (HCC) MORBID OBESITY Acute post-operative pain ACUTE POSTOPERATIVE [...] (303 lb 9.6 oz) Dismissal Plan: Trupti Parrish will be discharged to home with self [...] you for the opportunity to participate in [facility]. If you should have any questions or [...] stay. ? Parking entrance at either the [facility]([address] Entrance 4, with clay shop supervisor parking or at at the [facility] [place], Entrance 1. Screeners will be locate d [...] RN ANP - 12/07/2019 7:14 AM CDT [facility] POST-OP Progress Note [...] 10/2018 - follows with Dr. Medina in [place], [place] 5. Obesity 6. Chronic anticoagulation - [...] CDT Patient completed ambulation in hallway with manager rehab/mobility team unde r direction of nursing staff. * Margo Wayne RN ANP - 12/06/2019 7:25 AM CDT [facility] POST-OP Progress Note [...] last 7 days Lab Units 12/06/19 0031 INR 1.5* Cultures: n/a ABx: n/a Weight [...] 10/2018 - follows with Dr. Medina in [place], [place] 5. Obesity 6. Chronic anticoagulation - [...] and gloves) during the patient encounter. Margo HOANGP-C 12/06/2019 7:25 AM * Kristen Cox - 12/05/2019 1:45 PM CDT Patient completed ambulation in [facility] with manager rehab/mobility team unde r direction of nursing staff. * Alisia Chaparro NP - 12/05/2019 6:34 AM CDT [facility] POST-OP Progress Note [...] last 7 days Lab Units 12/04/19 0115 12/03/195 12/01/19 2351 WBC TH/uL 17.48* 17.05* 20.22* HEMOGLOBIN g/dL 11.2* 12.5* 14.0 HEMATOCRIT % 31* 36* 39* PLATELET COUNT TH/uL 146 160 175 Last 3 BMP Results (within the last 7 days): Most Recent Result within the last 7 days Lab Units 12/05/19 0045 12/04/19 0115 12/03/195 12/01/19 2351 SODIUM MEQ/L -- 129* 129* [...] 10/2018 - follows with Dr. Medina in [place], [place] 5. Obesity 6. Chronic anticoagulation - [...] Bach FNP - 12/04/2019 6:10 AM CDT [facility] POST-OP Progress Note [...] ablation. Follows with Dr. Medina in [place], [place]. 4. Post operative pain, expected. Received 2 doses Toradol yesterday. Prn oxycod one, APAP, scheduled Neurontin. 5. Hyponatremia. Na 129 again. Monitor. Home when O2 weaned, INR therapeutic. Lives in [place], [place]. PPE Statement: MARIA A العراقي and [...] Stated he is interested in attending at [facility] in [place], [place]. Given bro ripe from program. I will fax his contact information and order to the program for follow-up with him at home. * Fifi Bach FNP - 12/03/2019 6:15 AM CDT [facility] Cardi[facility] V[facility] POST-OP Progress Note [...] Critical Care Progress Note PATIENT NAME: Trupti Parrish DATE of SERVICE: 12/02/2019 CPI: [id number] AGE: 34 y.o. : 1985 DATE OF SURGERY: 12/01/2019 PATIENT DESCRIPTION: Mr. Parrish is a 34 year old with bicuspid [...] in diameter) CARDIAC CATHETERIZATION 07/10/2019 Performed in [place]. Normal ccoronaries. ELECTROPHYSIOLOGY STUDY POSSIBLE RFA OF SVT 10/2018 Performed at [facility] (AVNRT ablation of slow pathway) IMPLANTABLE LOOP RECORDER PLACEMENT Performed in [place], [place] RIGHT HEART CATHETERIZATION 07/10/2019 Performed in [place]. RA 14 RV 37/14 PA 39/13/28 PCWP [...] gabapentin, and Lidoderm patch. CI 3.3, 3.4. GLYCERIN OPERATOR 390. ROS: 10 points reviewed and found [...] Abdomen: Soft, obese, non-tender, BS present Genitourinary: Monet for accurate I/Os Extremities: Extremities normal, no [...] every 12 hrs D/C PAC, AL and monet Warfarin 3 mg tonight Toradol 30 mg [...] metabolic status including nutrition, and medications. Trupti Parrish is s/p AVR. Start BB today as [...] Palma Ramírez NP 12/02/2019 5:40 AM * ShahabNaila, TUBE TEST TECHNICIAN - 12/01/2019 3:47 PM CDT Respiratory Care Services Initial RATE Note 12/01/2019 3:47 PM A RATE assessment and treatement plan was performed on Trupti Parrish, : 10/15/18 88 The primary Pulmonary/Respiratory related [...] Critical Care Progress Note PATIENT NAME: Trupti Parrish DATE of SERVICE: 12/01/2019 CPI: [id number] AGE: 34 y.o. : 1985 DATE OF SURGERY: 12/01/2019 PATIENT DESCRIPTION: Mr. Parrish is a 34yo with bicuspid aortic valve [...] bicuspid aortic valve Mean AoV gradient 45 / Ascending aorta dilatation (HCC) 06/2019 5.0 cm ascending aorta; 3.5 cm at sinuses of Valsalva Depression Morbid obesity (HCC) VT (ventricular tachycardia) (HCC) 05/2018 with aberrancy PAST SURGICAL HISTORY: Past Surgical History: Procedure Laterality Date CARDIAC CATHETERIZATION 05/21/2018 normal cors. dilated ascending aorta (47 mm in diameter) CARDIAC CATHETERIZATION 07/10/2019 Performed in [place]. Normal ccoronaries. ELECTROPHYSIOLOGY STUDY POSSIBLE RFA OF SVT 10/2018 Performed at [facility] (AVNRT ablation of slow pathway) IMPLANTABLE LOOP RECORDER PLACEMENT Performed in [place], [place] RIGHT HEART CATHETERIZATION 07/10/2019 Performed in [place]. RA 14 RV 37/14 PA 39/13/28 PCWP [...] V wires present. Abdomen: Soft, non-tender Genitourinary: Monet for accurate I/Os Extremities: Extremities normal, no [...] ing nutrition, and medications were reviewed. Trupti Parrish has low cardiac index after mechanical AVR. [...] Li MD - 12/01/2019 7:14 AM CDT [facility] H&P NAME: Trupti Parrish ADMISSION DATE: 12/01/2019 : 1985 AGE: 34 y.o. PCP: Reji Jacob MD ATTENDING: Reuben Li MD HISTORY OF PRESENT ILLNESS: Mr. Parrish is a pleasant 34 y.o. male who presents to [facility] this morning for aortic valve replacement [...] performed on 10/23/[address] Li. Mr. Parrish is a 34 y/o gentleman with a PMH of bicuspid aortic valve with severe stenosis, ascending aortic aneur ysm and VT s/p ablation in 10/2018. In 2018 he developed VT requiring defibrillat ion. He was referred to [facility] in [place] for EPS with RFA, which was preformed [...] been following with Dr. Medina in the [place] [facility]. He has been referred by Dr. [...] in diameter) CARDIAC CATHETERIZATION 07/10/2019 Performed in [place]. Normal ccoronaries. ELECTROPHYSIOLOGY STUDY POSSIBLE RFA OF SVT 10/2018 Performed at [facility] (AVNRT ablation of slow pathway) IMPLANTABLE LOOP RECORDER PLACEMENT Performed in [place], [place] RIGHT HEART CATHETERIZATION 07/10/2019 Performed in [place]. 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 The [...] Toprol XL 100 mg given. HR 110's 1849: HR >120. IV metoprolol 2.5 mg given. HR decreased to 110 bpm. Bedside report given to W2 RN and aware of plan of care. * Mayela Barksdale RN - 12/02/2019 10:30 PM CDT Pt c/o 03/12 pain. No relief from PRN PO oxy, scheduled tylenol, and PRN IV dilau did (see MAR). [facility] RAILWAY TRACK WORKER, Cara Hollis, called. RAILWAY TRACK WORKER ordered a one time dose of vickie apentin 200mg and PRN IV toadol q 6 hrs. documented in this encounter Miscellaneous Notes * Discharge Planning - Savita Tarango RN - 12/08/2019 10:24 AM CDT Discharge Planning Interventions General Discharge Note Anticipated discharge disposition: Home Self Care DC Wednesday 12/06 Faxed DC Summary to Dr Jacob @ [phone] Nichol Tobar@ [phone]. Radha Tarango RN [facility] [phone] * Nursing Discharge - Dinora Ledezma RN [...] Ledezma RN - 12/07/2019 12:13 PM CDT 5038 Warfarin tablets What is this medicine? WARFARIN [...] information carefully each time. Talk to your plywood scarfer tender regarding the use of this medicine in children. Speci al care may be needed. What side effects may I notice from receiving this medicine? Side effects that you should report to your doctor or health school child care attendant as soon as possible: allergic reactions like [...] (report to your doc tor or health school child care attendant if they continue or are bothersome): diarrhea [...] this medicine? Visit your doctor or health school child care attendant for regular checks on your progre ss. [...] oft en. Notify your doctor or health school child care attendant and seek emergency treatment if you develop [...] phone number of your doctor or health school child care attendant or person to contact in an emergency. Do not start taking or stop taking any medicines or lcpd-qej-wssfcke medicines except on the advice of your doctor or health school child care attendant. You should discuss your diet with your doctor or health school child care attendant. Do n ot make major changes in [...] risks and her options with her health school child care attendant. Avoid sports and activities that might cause injury while you are using this me dicine. Severe falls or injuries can cause unseen bleeding. Be careful when usin g sharp tools or knives. Consider using an electric razor. Take special care bru shing or flossing your teeth. Report any injuries, bruising, or red spots on the skin to your doctor or health school child care attendant. If you have an illness that causes [...] ntal work, tell your doctor or health school child care attendant that you have been takin g this medicine. NOTE:This sheet is a summary. It may not cover all possible information. If you have questions about this medicine, talk to your doctor, pharmacist, or health care provider. Copyright 2020 [employer] * Krames patient edu - Dinora Ledezma [...] information carefully each time. Talk to your plywood scarfer tender regarding the use of this medicine in children. Speci al care may be needed. What side effects may I notice from receiving this medicine? Side effects that you should report to your doctor or health school child care attendant as soon as possible: allergic reactions like [...] (report to your doc tor or health school child care attendant if they continue or are bothersome): constipation [...] to an official disposal site. Contact the [facility] at or your [facility] government to find a site. If [...] this medicine? Tell your doctor or health school child care attendant if your pain does not go away, [...] days, call your docto r or health school child care attendant. Your mouth may get dry. Chewing sugarless gum or sucking hard candy, and drinki ng plenty of water may help. Contact your doctor if the problem does not go away or is severe. NOTE:This sheet is a summary. It may not cover all possible information. If you have questions about this medicine, talk to your doctor, pharmacist, or health care provider. Copyright 2020 [employer] * Emiliano patient edu - Dinora Ledezma RN - 12/07/2019 12:13 PM CDT 1501 Gabapentin capsules or tablets What is this [...] information carefully each time. Talk to your plywood scarfer tender regarding the use of this medicine in children. While this drug may be prescribed for children as young as 3 years for selected condi tions, precautions do apply. What side effects may I notice from receiving this medicine? Side effects that you should report to your doctor or health school child care attendant as soon as possible: allergic reactions like skin rash, itching or hives, swelling of the face , lips, or tongue breathing problems suicidal thoughts, mood changes Side effects that usually do not require medical attention (report to your doc tor or health school child care attendant if they continue or are bothersome): dizziness [...] this medicine? Visit your doctor or health school child care attendant for regular checks on your progre ss. You may want to keep a record at home of how you feel your condition is resp onding to treatment. You may want to share this information with your doctor or health school child care attendant at each visit. You should contact your doctor or health school child care attendant if your seizures get worse or if you have any new types of se izures. Do not stop taking this medicine or any of your seizure medicines unless instructed by your doctor or health school child care attendant. Stopping your medicine s uddenly can increase [...] or dying should be reported to your [facility] school child care attendant right away. Women who become while using this medicine may enroll in the [facility] Antiepileptic Drug Registry by calling . This miesha stry collects information about the safety of antiepileptic drug use during preg ching. NOTE:This sheet is a summary. It may not cover all possible information. If you have questions about this medicine, talk to your doctor, pharmacist, or health care provider. Copyright 2020 [employer] * [facility] patient edu - Dinora Ledezma RN - 12/07/2019 12:13 PM CDT 69647 Aspirin, ASA chewable tablets What is this [...] o ften than directed. Talk to your plywood scarfer tender regarding the use of this medicine in [...] should report to your doctor or health school child care attendant as soon as possible: allergic reactions like [...] (report to your doc tor or health school child care attendant if they continue or are bothersome): diarrhea [...] if prescribed by your doctor or health school child care attendant. Do not take aspirin or aspirin-like medicines [...] pharmacist, or health care provider. Copyright 2020 [employer] * Emiliano patient edu - Dinora Ledezma [...] on label or package. Talk to your plywood scarfer tender regarding the use of this medicine in children. While this drug may be prescribed for children as young as 12 years for selected cond itions, precautions do apply. What side effects may I notice from receiving this medicine? Side effects that you should report to your doctor or health school child care attendant as soon as possible: allergic reactions like skin rash, itching or hives, swelling of the face , lips, or tongue breathing problems chest pain or chest tightness dizzines Side effects that usually do not require medical attention (report to your doc tor or health school child care attendant if they continue or are bothersome): tingling, [...] without asking your do ctor or health school child care attendant. What if I miss a dose? Apply [...] s for which your doctor or health school child care attendant has prescribed. NOTE:This sheet is a summary. It may not cover all possible information. If you have questions about this medicine, talk to your doctor, pharmacist, or health care provider. Copyright 2020 [employer] * Krames patient edu - Dinora Ledezma RN - 12/07/2019 12:13 PM CDT [id number] Hyponatremia Hyponatremia means low sodium levels in [...] confusion Fainting or loss of consciousness Seizure [id number] The [employer]. [address] [place] [address] 31 022. All rights reserved. This information is not intended as a substitute for p rofessional medical care. Always follow your healthcare professional's instructi ons. * Emiliano patient edu - Dinora Ledezma RN - 12/07/2019 12:13 PM CDT 07696 Eating Heart-Healthy Foods Eating has a big [...] basil, cilantro, ci nnamon, pepper, and sunny. [phone] [employer]. [address] [place] [address] 32 93. All rights reserved. This information is not intended as a substitute for [facility] medical care. Always follow your healthcare professional's instructi ons. * Emiliano patient edu - Dinora Ledezma RN - 12/07/2019 12:13 PM CDT 41653 Heart Valve Problems: Aortic Stenosis Aortic stenosis [...] valve, even if you dont have symptoms. [id number] [employer]. [address] [place] [address] 190 67. All rights reserved. This information is not intended as a substitute for pr ofessional medical care. Always follow your healthcare professional's instructio ns. * End of Shift Note - Syl Garcia, RN - 12/06/2019 6:32 PM CDT End [...] support Sari Bhardwaj,PT,DPT Physical Therapist Voalte Number: [phone] * End of Shift Note - Syl [...] at home. [place] a ride Home at [place]. Talked with Margo GREENBERG via Voalte. She is setting up his follow up visit with willard card and were his INR needs to be sent. Patient from [facility]. Will use local lab. 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 Radha Tarango RN [facility] [phone] * Therapy Note - Jm Araujo PTA [...] Wm. Steven Araujo PTA III Physical Therapist Trolley Worker Sharmin phone: [phone] * End of Shift Note - Alma [...] Therapy Note - Jm Araujo PTA - 12/04/2019 1:58 PM CDT 12/04/19 1001 [...] Wm. Steven Araujo PTA III Physical Therapist Trolley Worker Sharmin phone: [phone] * Discharge Planning - Savita Tarango RN - 12/04/2019 10:10 AM CDT Discharge Planning Interventions General Discharge Note Anticipated discharge disposition: Home Self Care Additional discharge planning information: POD # 3 Mech AVR Home on coumadin. INR 1.2 Weaning O2 today. PCP Dr Isidra Tobar [facility], Sarahi Castanon Injection Operator: Dr Reji Jacob, Sarahi Cast[place] Contact: Dr Tone Medina see patient in [place] @ [facility]. Contact: Patient'S/O Misty Dave Will provide ride home. Friends will stay with him at time of DC. Plan home self care. Radha Tarango RN [facility] [phone] * End of Shift Note - Alma [...] CG completed, awaiting return page. Repaged at [phone], page returned by Dr Roxane hudson @7114, gave TO to give Metoprolol early 0600. [...] now 120 s and 140s-150s with activity. RAILWAY TRACK WORKER notified and ordered a 1x dose of [...] Wm. Steven Araujo PTA III Physical Therapist Trolley Worker Sharmin phone: [phone] * End of Shift Note - Mayela [...] transferred to floor today. Doing well. CTs, Monet, and wires all d/c'd in ICU. +void. [...] Dave via phone as am working re [employer]. S.O lives in separate residence but she and a friend will be providing 24/7 a sst at ma. Pt works FT and indep/ active prior to surgery No Hx amb devices/ DME/ Oxygen/ PAC facilities/ rehab PCP confirmed as Nichol Tobar, [facility] , [place], [place] Injection Operator noe Jacob, [facility] ; Additional information: [facility] AVR. Hx Bicuspid AV/ , AAA, VT/ Ablation RODNEY Goodrich extension course coordinator, Loss Prevention Consultant medical team, Spud Grader met for patient rounds to discuss progression of care and dc planning. Referral to see patient was placed by Referral Source: Care Progression , Referral Reason: Discharge planning, Initial Assessment Initial assessment completed and Information obtained from: : SMoshe Dave Introduced self and purpose of meeting with the patient and is agreeable to inte rview at this time. Patient's Living Arrangement: Apartment, Alone Patients support system has been Support System: Spouse/significant other, Fr iends/neighbors Patient has verbalized the following concerns at discharge: Family Concerns: No Pt has Payor: [employer] / Plan: BC OUT OF AREA PREF CARE / Product Type: *No Product type* / Legal Information: Patient does not have advance directive Discussion of advance directives and information provided: Yes Is the patient interested in establishing an advance directive?: No, the patient would not like to discuss establishing an advance directive Healthcare Agent Appointed: Yes Healthcare Agent's Name: Misty Dave (s.o.) Healthcare Agent's Patient currently uses at home: Assistive Devices: None Respiratory items:: (Denies) Patient states their Income Source: Employed. , Income/Expense Information: Income exceeds expenses Resources Available: Rx benefits Verified that patients primary care physician is Nichol Tobar APRN and dilip tnog their medications from [facility] [address] [address] Facesheet verified. Ericka Woods RN, BSN Spud Grader [phone] * End of Shift Note - Priscilla High RN - 12/02/2019 1:50 PM CDT End of Shift Summary and Plan of Care Pt POD #1 from mechanical AVR. Pt OOB to chair, ambulated in the [place] w/ PT. Pt remained painful, given PRN oxy and dilaudid; toradol and tylenol scheduled. Swa n torrie, central line, art line, monet, chest tubes and pacer wires d/c'd. Pt was diuresed with 20mg lasix, UOP. Pt has minimal appetite, and complained of cynthia sea which was relieved with zofran. Pt remains on 4L NC, encouraged coughing and deep breathing & I.S. use. Transferred to [facility] Goals per Patient Condition Skin [...] AoV gradient 45 07/22 Ascending aorta dilatation ([facility]) 06/2019 5.0 cm ascending aorta; 3.5 cm at sinuses of Valsalva Depression Morbid obesity ([facility]) VT (ventricular tachycardia) ([facility]) 05/2018 with aberrancy Patient/Family Reports Pt seen [...] him upon dc Prior Function Level of [place] Independent with ADLs;Independent with functional transfer s;Independent [...] Denise Malik PT, DPT Physical Therapist Voalte: [phone] * Therapy Note - Denise Malik PT - 12/02/2019 11:20 AM CDT 12/02/19 1120 PT Visit Info Attempted but was unable to see patient (date) 12/02/19 Reason patient was not seen Pt refused PT reason not seen - extended comment Pt declines and prefers to complete PT rita luation this afternoon. PT will return between [phone]. Notified RN of PT plan . Denise Malik PT, DPT Physical Therapist Voalte: [phone] * End of Shift Note - Adair [...] to 4L HFNC . Insulin gtt started. GLYCERIN OPERATOR: 250. UOP: 1.7L. OOBTC @ 1730. Sys [...] tomorrow. Sari Bhardwaj,PT,DPT Physical Therapist Voalte Number: [phone] * Brief Operative Note - Reuben Li MD - 12/01/2019 12:21 PM CDT Brief Operative Note Trupti Parrish 12/01/2019 Event Time In Procedure / Incision Start 908 Pre-op Diagnosis: Aortic valve stenosis, bicuspid valve Post-op Diagnosis: same Procedure: AORTIC VALVE REPLACEMENT WITH 25MM [facility], N/A ECHOCARDIOGRAM, TRANSESOPHAGEAL, N/A Surgeon(s) and Role: * Traci Li MD - Primary Anesthesia Type: General Staff: Crystal Gazer: Cyndy Kendall RN; Melva Nair RN Education Associate: Christiano Quinonez CCP Physician Trolley Worker: Jocelynn Chavez PA-C Scrub Person: Estrella Pizano RN Anesthesiologist: Rusty Ventura MD Anesthesiologist Trolley Worker: JOSÉ ANTONIO Ron Findings: Estimated Blood Loss: Specimens: . ID Source Type Tests Collected By Collected At 1 Aortic Valve Tissue TISSUE PATHOLOGY OR BIOPSY Reuben Li MD 12/01/19 1038 Description: AORTIC VALVE Comment: Pre-op diagnosis: AORTIC STENOSIS Implants: @ORIMPLANT@ Complications: PPE Statement: 2 chest tubes 1 A and 2 V pacing wires Dictation # [id number] Traci Li Date: 12/01/2019 Time: 12:21 PM * Operative Note - Reuben Li MD - 12/01/2019 12:21 PM CDT Name: TRUPTI PARRISH MRN: Date of : 1985 Attending Physician: Traci Li MD Date of Procedure: 12/01/2019 DATE OF OPERATION: 12/01/2019 PREOPERATIVE DIAGNOSES: Symptomatic aortic valve stenosis. POSTOPERATIVE DIAGNOSIS: Symptomatic aortic valve stenosis. OPERATION: Aortic valve replacement (St. Jordan Hassell mechanical aortic valve, m wilbur #[id number] serial #[id number]). SURGEON: Dr. Glen Li. EPITAXIAL REACTOR OPERATOR: KIM Martinez INDICATIONS FOR OPERATION: This 34-year-old [...] of a 25 mm S t. Jordan Hassell mechanical prosthesis. This valve was calculated to [...] was closed using a combination of #6 pvpyui-if-ysfoz circumferential stainless steel wire and double stranded stainle ss steel wire. The remainder of the incision was closed in layers using absorba ble suture. At the end of the operation, the patient was in normal sinus rhythm with excellent hemodynamics. Traci Li MD [id number] CC: cc: Tone Medina MD, Reji Jacob [...] Protime 21.1 (H) 11.4 - 15.0 sec [facility] INR 1.9 (H) 0.8 - 1.2 [facility] Specimen Blood Performing Organization Address City/State/[facility] Ph one Number [address] [address] LABORATORIES [facility] [address] [place] [address] * Basic Metabolic Panel (12/06/2019 12:31 AM CDT) Only the most recent of 4 results within the time period is included. Sodium 134 133 - 147 MEQ/L [facility] Potassium 3.6 3.5 - 5.3 MEQ/L [facility] Chloride 98 96 - 112 MEQ/L [facility] Carbon Dioxide 31 20 - 32 MEQ/L [facility] Anion Gap 4 (L) 5 - 17 [facility] Calcium 8.7 8.4 - 10.5 mg/dL [facility] Glucose 111 (H) 70 - 100 mg/dL [facility] Blood Urea 16 7 - 26 mg/dL [facility] Creatinine 0.8 0.6 - 1.3 mg/dL [facility] eGFR Male AA >130 60 - 200 [facility] mL/min/1.73sq [facility] eGFR Male 112 60 - 200 [facility] Non-AA mL/min/1.73sq [facility] Specimen Blood Performing Organization Address City/[facility] Ph one Number [address] [address] LABORATORIES [facility] [address] [place] [address] * Complete Blood Count (12/06/2019 12:31 AM CDT) Only the most recent of 4 results within the time period is included. WBC 9.27 4.00 - 11.00 TH/uL [facility] RBC 3.56 (L) 4.31 - 5.84 MIL/uL [facility] Hemoglobin 10.5 (L) 13.0 - 17.0 g/dL [facility] Hematocrit 30 (L) 40 - 50 % [facility] MCV 83 80 - 99 fL [facility] MCH 30 27 - 34 pg [facility] MCHC 36 32 - 36 % [facility] RDW 12.5 11.5 - 14.5 % [facility] Platelet Count 213 140 - 400 TH/uL [facility] MPV 9.8 9.4 - 12.3 fL [facility] Nucleated RBCs 0 0 - 0 /100 [facility] Specimen Blood Performing Organization Address City/[facility] Ph one Number [address] [address] LABORATORIES [facility] [address] [place] [address] * Potassium (12/05/2019 12:45 AM CDT) Only the most recent of 4 results within the time period is included. Potassium 3.7 3.5 - 5.3 MEQ/L [facility] Specimen Blood Performing Organization Address City/[facility]/Zipcode Ph one Number [address] [address] LABORATORIES [facility] [address] [place] [address] * XR Chest 2 views (PA and lateral) (12/04/2019 7:12 AM CDT) Specimen Impressions Performed At Left worse than right bibasilar subsegmental atelecta devang. [place] Mildly interstitial pulmonary edema. READING SITE: Home, due to Covid-19 Narrative Performed At Patient: TRUPTI PARRISH Sex#: M #: 1985 Taylor# : [id number] Location: [place] [address] Acces eduarda#: [id number] Procedure Requested: [id number] XR CHEST 2 VIEWS (PA AND LATERAL) Reason for Exam: S/P mechanical AVR Exam Ordered: 12/04/2019 000 0 Exam Date/Time: 12/04/2019711 Begin exam date/time: 12/04/2019 07 XR CHEST 2 VIEWS (PA AND LATERAL) [...] TRUPTI PARRISH Sex#: M #: 1985 Taylor#: [id number] Location: [place] [address] Procedure Requested: [id number] XR CHEST 2 VIEWS (PA AND LATERAL) [...] Home, due to Covid-19 Performing Organization Address [facility] one Number [place] * Electrocardiogram (ECG) (12/04/2019 3:39 AM CDT) Only the most recent of 2 results within the time period is included. QRSd 102 TRACEMASTER QT 328 TRACEMASTER QTC 464 TRACEMASTER ECGHR 120 TRACEMASTER ECGPR 148 TRACEMASTER Specimen Narrative Performed At TRACEMAER [facility] Test Date: 2019-12-04 Pat Name: TRUPTI MCKENNAN Department: [address] Room: 10 Gender: Male Histotechnician: [id number] : 1985 Requested By: PALMA ARMÍREZ Order Number: [id number] Reading MD: Ronnell Damian Measurements Intervals [place] Rate: 120 P: 37 KS: 148 QRS: 15 QRSD: 102 T: 29 QT: 328 QTc: 464 Interpretive Statements SINUS TACHYCARDIA PROBABLE LEFT VENTRICULAR HYPERTROPHY ST ELEVATION, CONSIDER PERICARDITIS Electronically Signed On 12-04-2019 10:36 :48 CDT by Ronnell Damian Procedure Note Interface, External Ris In - 12/04/2019 10:36 AM CDT [facility] Test Date: 2019-12-04 Pat Name: TRUPTI PARRISH Department: [address] Room: 10 Gender: Male Histotechnician: [id number] : 1985 Requested By: PALMA RAMÍREZ Order Number: [id number] Reading MD: Ronnell Damian Measurements Intervals [place] Rate: 120 P: 37 KS: 148 QRS: 15 QRSD: 102 T: 29 QT: 328 QTc: 464 Interpretive Statements SINUS TACHYCARDIA PROBABLE LEFT VENTRICULAR HYPERTROPHY ST ELEVATION, CONSIDER PERICARDITIS Electronically Signed On 12-04-2019 10:36:48 CDT by Ronnell Damian Performing Organization Address [facility] one Number TRACETRESTER * GLUCOSE POC (12/03/2019 7:42 AM CDT) Only the most recent of 21 results within the time period is included. Glucose POC 134 (H) 70 - 100 mg/dL [facility] Specimen Performing Organization Address City/State/Zipcode Ph one Number [facility] [address] [place] [address] LABORATORIES * XR Chest single view frontal [...] PARRISH Sex#: M #: 1985 Taylor# : [id number] Location: [address] [id number] Access ion#: [id number] Procedure Requested: [id number] XR CHEST SINGLE VIEW FRONTAL Reason for [...] TRUPTI PARRISH Sex#: M #: 1985 Taylor#: [id number] Location: [address] ICU [id number] Procedure Requested: [id number] XR CHEST SINGLE VIEW FRONTAL Reason for [...] Home, due to Covid-19 Performing Organization Address [facility] one Number [place] * HGB/K POC (12/01/2019 1:09 PM CDT) Hemoglobin 15.7 13.0 - 17.0 g/dL [facility] Potassium 5.4 (H) 3.5 - 5.3 MEQ/L [facility] Specimen Performing Organization Address [facility] [place] [address] LABORATORIES * Lytes//HGB/CA POC (12/01/2019 10:51 AM CDT) Only the most recent of 3 results within the time period is included. Ionized Calcium 4.3 (L) 4.5 - 5.3 mg/dL [facility] Sodium 132 (L) 133 - 147 MEQ/L [facility] Potassium 6.6 (C) 3.5 - 5.3 MEQ/L [facility] Specimen Arterial Performing Organization Address [facility] one Number [address] [phone] LABORATORIES [facility] [address] [place] [address] * Arterial Blood Gas + Coox (12/01/2019 10:51 AM CDT) Only the most recent of 3 results within the time period is included. Hemoglobin 12.1 (L) 13.0 - 17.0 g/dL [facility] Blood [facility] Oxyhemoglobin 95.8 95.0 - 100.0 % THB [facility] Carboxyhemoglob 3.4 (H) 0.0 - 1.5 % THB [facility] in [facility] Methemoglobin 0.5 0.0 - 1.5 % THB [facility] Total Oxygen 99.7 95.0 - 100.0 % B [facility] Saturation [facility] O2 Content 16.7 (L) 17.0 - 100.0 mL/dL [facility] Arterial [facility] PO2 Arterial 177 (H) 80 - 100 mm Hg [facility] pCO2 Arterial 41 35 - 45 mm Hg [facility] pH Arterial 7.31 (L) 7.35 - 7.45 units [facility] Bicarbonate 20.6 19.0 - 29.0 MEQ/L [facility] Base Excess -5.4 (L) -3.0 - 3.0 MEQ/L [facility] Specimen Arterial Performing Organization Address City/State/[facility] [place] [address] [place] [address] * Tissue Pathology or Biopsy (12/01/2019 10:38 AM CDT) Specimen Tissue - Aortic Valve Narrative Performed At [facility] Pathology Group [facility] SURGICAL PATHOLOGY REPORT PATIENT: TRUPTI PARRISH /AGE/SEX: 1985 (Age: 34) /M ID #: [id number] SUBMITTING PHYSICIAN: Traci Leiva MD CLIENT: [facility] COLLECTED: 12/01/2019 REPORTED: 12/02/2019 SPECIMEN #: [id number] ##################MICROSCOPIC INTERPRET ATION################## Cardiac aortic valve, excision with noris ve replacement: - Nodular calcification and degen erative change. Melva Benitez M.D. Report Electronically Signed Out CDW:12/02/19 ELISA([facility]) CLINICAL HISTORY/IMPRESSION: Aortic valve. SPECIMEN LABELED: Aortic valve GROSS DESCRIPTION: The specimen is received in neutral buf fered formalin, labeled with the patient name and further designated "aortic noris ve." The specimen consists of a 3.2 x 2.7 x 0.6 cm coughlin-white and rubbery piece of soft tissue. Sectioning reveals a red-yellow, calcified cut surface. Drying Machine Receiver sections are submitted in cassette A1 after decalcification. (MJ) serene Professional Component performed by ELISA , a [place] Pathologist located at [facility], [address] [place] [address] Technical Component performed at [facility] rhett [place], [facility] [address] If immunohistochemical stains and or in situ hybridization are cited in this report, the performance characteristics were determined by [facility] in compliance with CLIA'88 regulations. Some of these tests rely on the use of 'analyte specific reagents' and are subject to specific l abeling requirements by the FDA. Known positive and negative control tissues d emonstrate appropriate staining. Results should be interpreted with caution give n the likelihood of false negativity on decalcified specimens. This testing was developed b [facility]. It has not been cleared or approved by the FDA. The FDA has determined that such clearance or approval is not necessary. ###END OF REPORT### Performing Organization Address City/[facility] Ph one Number [place] [address] [place], [place] [address] [address] * Activated Clotting Time POC (12/01/2019 10:33 AM CDT) Only the most recent of 3 results within the time period is included. Pathologist Todd Activated 543 (H) 99 - 130 sec [facility] Clot[facility] Time [facility] Specimen Performing Organization Address City/[facility] Ph one Number [facility] [address] [place] [address] LABORATORIES * Retype Patient ABORH (12/01/2019 7:32 AM CDT) Pathologist Todd ABORH Type A Positive [facility] Confirm Blood Yes [facility] Specimen Blood Performing Organization Address [facility] one Number [facility] [address] [place] [address] LABORATORIES [facility] [address] [place] [address] * Hemoglobin A1C (12/01/2019 7:23 AM CDT) Pathologist [facility] Hemoglobin A1C 5.6 4.0 - 5.6 % [facility] Comment: Hospital Lab Non-diabetic 4.0 - 5.6 % Prediabetes 5.7 - 6.4 % Diabetes >= 6.5 % Specimen Blood Performing Organization Address City/[facility]/Zipcode Ph one Number [address] [address] LABORATORIES [facility] [address] [place] [address] * IR Outside images for PACS (12/01/2019 7:23 AM CDT) Specimen Performing Organization Address City/[facility] Ph one Number [place] * RBCs 2 Units (12/01/2019 7:10 AM CDT) Pathologist [facility] 01 - PRODUCT ID Red Blood Cells [facility] 01 - UNIT [id number] [facility] 01 - CROSS Compatible [facility] 01 - STATUS Ready [facility] 01 - PRODUCT [id number] [facility] 01 - BLOOD TYPE A Pos [facility] 02 - PRODUCT ID Red Blood Cells [facility] 02 - UNIT [id number] [facility] 02 - CROSS Compatible [facility] 02 - STATUS Ready [facility] 02 - PRODUCT [id number] [facility] 02 - BLOOD TYPE A Pos [facility] Specimen Blood Performing Organization Address City/[facility] Ph one Number [address] [address] LABORATORIES * Antibody Screen (12/01/2019 7:10 AM CDT) Pathologist [facility] Antibody Screen Negative Negative [facility] Specimen Blood Performing Organization Address City/[facility] Ph one Number [address] [phone] LABORATORIES [facility] [address] [place] [address] * ABORH Type (12/01/2019 7:10 AM CDT) ABORH Type A Positive [facility] Specimen Blood Performing Organization Address City/[facility] Ph one Number [facility] [address] [place] [address] LABORATORIES [facility] [address] [place] [address] * XMATCH (12/01/2019 6:25 AM CDT) Specimen Blood Performing Organization Address [facility] Ph one Number [facility] [address] [place], [place] [address] documented in this encounter [...] vancomycin (VANCOCIN) injection Given As needed, Starting Sun12/01/19 at 0752 , Intra-op 12/06/2019 5:00 PM CDT 10 mg warfarin (COUMADIN) tablet 10 mg Given 10 mg, Oral, Every evening, First dose (after last modification) on Sun12/05/19 at 1800, To start POD #1., 10 mg Given 12/05/2019 5:16 PM CDT documented in this encounter
--- OUTSIDE RECORDS SUMMARY | 2020-02-19 07:51 | XMS REPORT | Encounter Summary ---
Author Author [facility] Organization [facility] Address Unknown Phone Unavailable Care Team Providers Care Pre K Special Education Teacher Name Role Phone Reji Jacob PCP Encounter Details Care Team Description Date Type Department Encounter for consultation 11/28/2019 Imaging [facility] Virtual Revenu e Appointment Location [...]
--- OUTSIDE RECORDS SUMMARY | 2020-02-19 07:51 | XMS REPORT | Encounter Summary ---
Author Author [facility] Organization [facility] Address Unknown Phone Unavailable Care Team Providers Care Nursing Specialist Name Role Phone Reji Jacob PCP [...]
--- OUTSIDE RECORDS SUMMARY | 2020-02-19 07:51 | XMS REPORT | Encounter Summary ---
Author Author [facility] Organization [facility] Address Unknown Phone Unavailable Care Team Providers Care Podiatric Medicine Professor Name Role Phone Reji Jacob PCP Encounter Details Care Team Description Date Type Department Encounter for consultation 11/28/[address] [facility] [...]
--- OUTSIDE RECORDS SUMMARY | 2020-02-19 07:51 | XMS REPORT | Encounter Summary ---
Author Author [facility] Organization [facility] Address Unknown Phone Unavailable Care Team Providers Care Service Counter Cashier Name Role Phone Reji Jacob PCP Encounter Details Care Team Description Date Type Department Encounter for consultation 11/28/2019 Imaging [facility] Virtual Revenu [...]
--- OUTSIDE RECORDS SUMMARY | 2020-02-19 07:51 | XMS REPORT | Encounter Summary ---
Author Author [facility] Organization [facility] Address Unknown Phone Unavailable Care Team Providers Care Wire Bender Name Role Phone Reji Jacob PCP Encounter Details Care Team Description Date Type Department Encounter for consultation 11/28/2019 Imaging [facility] Virtual Revenu [...]
--- OUTSIDE RECORDS SUMMARY | 2020-02-19 07:51 | XMS REPORT | Encounter Summary ---
Author Author [facility] Organization [facility] Address Unknown Phone Unavailable Care Team Providers Care Service Learning Coordinator Name Role Phone Reji Jacob PCP Encounter Details Care Team Description Date Type Department 12/01/2019 Imaging [facility] Virtual Revenu [...]
--- OUTSIDE RECORDS SUMMARY | 2020-02-19 07:51 | XMS REPORT | Encounter Summary ---
Author Author [facility] Organization [facility] Address Unknown Phone Unavailable Care Team Providers Care Atomic Physics Professor Name Role Phone Reji Jacob PCP Reason for Visit * Auth/Cert Referred By Contact Referred To Contact Status Reason Specialty Diagnoses / Procedures Diagnoses AORTIC STENOSIS P rocedures VT RPLCMT PROST AORTIC VALVE OPEN XCP HOMOGRF/STENT AORTIC VALVE REPLACEMENT (MECHANICAL) ECHOCARDIOGRAM, TRANSESOPHAGEAL POSSIBLE REPLACEMENT OF ASCENDING AORTA Encounter Details Care Team Description Date Type Department Rusty Ventura MD [address] [facility] [place] [address] [phone] Jm Dorman DO [address] [facility] [place] [address] [phone] [facility] [address] [place] [address] Anesthesia Record Responsible Anesthesiologist Anesthesia Start Time Anesthesi a Stop Time Procedure Name Rusty Ventura MD 12/01/19 0802 12/01/19 1222 AORTIC VALVE REPLACEMENT WITH 25MM [facility] (N/A ) Date Time Event Comment 650 Anesthesia 2020 Initial Contact 0700 0706 AN Equip Check 0802 In room 0802 An Start 0802 ENDLESS TRACK VEHICLE MECHANIC/AA JOSÉ ANTONIO Ron Intraprocedure Sign-Off 0802 Pt [...] Nair Per order 12/02/19 0940 by Priscilla [facility] RN Y Chest 12/01/19; 1111; 1; Anterior; [...] 5:29 PM CDT Associated Order(s): ISABELLA ISABELLA 23078- Probe placement, image acquistion & report, 17826- Doppler, pulse wave and/or continuous with spectral display and 22116- Doppler color flow velocity mappingPerforming Physician: Audrey [...] catheter and ISABELLA Plan discussed with anesthesiologist assistant merchandiser. Anesthetic plan and risks discussed with patient. [...] Ventura MD 12/01/2019 5:3 3 PM ISABELLA 85632- Probe placement, image acquistio n & report, 53775- Doppler, pulse wave and/or continuous with spectral di splay and 28439- Doppler color flow velocity mappingPerforming Physician: Michael [...] (ZINACEF) injection Given Intravenous, As needed, Starting [facility] 12/01/19 at 0858, Anesthesia Intra-op 12/01/2019 9:30 AM CDT 250 mcg fentaNYL (SUBLIMAZE) injection Given As needed, Starting [facility] 12/01/19 at 0809 , Anesthesia Intra-op 100 [...] Given (2 %) injection As needed, Starting [facility] 12/01/19 at 0808 , Anesthesia Intra-op 12/01/2019 [...]
--- OUTSIDE RECORDS SUMMARY | 2020-02-19 07:51 | XMS REPORT | Encounter Summary ---
Author Author [facility] Organization [facility] Address Unknown Phone Unavailable Care Team Providers Care Unemployment Insurance Hearing Officer Name Role Phone Reji Jacob PCP [...]
--- OUTSIDE RECORDS SUMMARY | 2020-02-19 07:51 | XMS REPORT | Encounter Summary ---
Author Author [facility] Organization [facility] Address Unknown Phone Unavailable Care Team Providers Care Registered Nurse Fetal Name Role Phone Reji Jacob PCP Encounter [...]
--- OUTSIDE RECORDS SUMMARY | 2020-02-19 07:52 | XMS REPORT | Encounter Summary ---
Author Author [facility] Organization [facility] Address Unknown Phone Unavailable Care Team Providers Care Arrow Point Attacher Name Role Phone Reji Jacob PCP Encounter Details Care Team Description Date Type Department Tone Medina MD [address] [place] [address] [phone] 09/02/2019 Documentation [facility] [address] [place] [address] Social History Date Tobacco Use Types Packs/Day [...]
--- OUTSIDE RECORDS SUMMARY | 2020-02-19 07:52 | XMS REPORT | Encounter Summary ---
Author Author [facility] Organization [facility] Address Unknown Phone Unavailable Care Team Providers Care Interventional Nurse Name Role Phone Reji Jacob PCP Encounter Details Care Team Description Date Type Department Encounter for consultation 10/22/2019 Imaging [facility] Virtual Revenu e [...] 10/22/2019 Encounte r for PACS 3:24 PM INTERNET TECHNOLOGY MANAGER consultation documented in this encounter Results * US Outside images for PACS (10/22/2019 3:24 PM INTERNET TECHNOLOGY MANAGER) Specimen Performing Organization Address City/State/Zipcode Ph one Number [place] documented in this encounter Visit Diagnoses Diagnosis Encounter for consultation documented in this encounter
--- OUTSIDE RECORDS SUMMARY | 2020-02-19 07:52 | XMS REPORT | Encounter Summary ---
Author Author [facility] Organization [facility] Address Unknown Phone Unavailable Care Team Providers Care Internal Consultant Name Role Phone Reji Jacob PCP Encounter Details Care Team Description Date Type Department Korin Rehman RN 2019 Telephone [facility] [address] [place] [address] Social History Date Tobacco Use Types Packs/Day [...] Korin Rehman RN - 2019 8:26 AM MAIL CARRIERS SUPERVISOR Received a VM regarding an upcoming CTS appointment he has scheduled. He wanted to find out the name of the provider. LMTCB CARRIERS SUPERVISOR documented in this encounter Plan of Treatment Not on filedocumented as of this encounter Visit Diagnoses Not on filedocumented in this encounter
--- OUTSIDE RECORDS SUMMARY | 2020-02-19 07:52 | XMS REPORT | Encounter Summary ---
Author Author [facility] Organization [facility] Address Unknown Phone Unavailable Care Team Providers Care Comparator Operator Name Role Phone Reji Jacob PCP [...] 10/24/2019 Encounte r for PACS 8:00 AM POWER AND RECOVERY SUPERINTENDENT consultation documented in this encounter Results * CT Outside images for PACS (10/24/2019 8:00 AM POWER AND RECOVERY SUPERINTENDENT) Specimen Performing Organization Address City/State/Zipcode Ph one Number [place] documented in this encounter Visit Diagnoses Diagnosis Encounter for consultation documented in this encounter
--- OUTSIDE RECORDS SUMMARY | 2020-02-19 07:52 | XMS REPORT | Encounter Summary ---
Author Author [facility] Organization [facility] Address Unknown Phone Unavailable Care Team Providers Care Materials Supervisor Name Role Phone Reji Jacob PCP [...] 10/24/2019 Encounte r for PACS 8:15 AM ANIMATION ARTIST consultation documented in this encounter Results * CT Outside images for PACS (10/24/2019 8:15 AM ANIMATION ARTIST) Specimen Performing Organization Address City/State/Zipcode Ph one Number [place] documented in this encounter Visit Diagnoses Diagnosis Encounter for consultation documented in this encounter
--- OUTSIDE RECORDS SUMMARY | 2020-02-19 07:52 | XMS REPORT | Encounter Summary ---
Author Author [facility] Organization [facility] Address Unknown Phone Unavailable Care Team Providers Care Skin Toggler Name Role Phone Reji Jacob PCP Encounter Details Care Team Description Date Type Department Encounter for consultation 10/22/2019 Imaging [facility] Virtual [...] 10/22/2019 Encounte r for PACS 3:21 PM TOOTH GRINDER consultation documented in this encounter Results * IR Outside images for PACS (10/22/2019 3:21 PM TOOTH GRINDER) Specimen Performing Organization Address City/State/Zipcode Ph one Number [place] documented in this encounter Visit Diagnoses Diagnosis Encounter for consultation documented in this encounter
--- OUTSIDE RECORDS SUMMARY | 2020-02-19 07:52 | XMS REPORT | Encounter Summary ---
Author Author [facility] Organization [facility] Address Unknown Phone Unavailable Care Team Providers Care Bag End Sewer Name Role Phone Reji Jacob PCP [...] 10/24/2019 Encounte r for PACS 8:02 AM SCREWHEAD POLISHER consultation documented in this encounter Results * CT Outside images for PACS (10/24/2019 8:02 AM SCREWHEAD POLISHER) Specimen Performing Organization Address City/State/Zipcode Ph one Number [place] documented in this encounter Visit Diagnoses Diagnosis Encounter for consultation documented in this encounter
--- OUTSIDE RECORDS SUMMARY | 2020-02-19 07:52 | XMS REPORT | Encounter Summary ---
Author Author [facility] Organization [facility] Address Unknown Phone Unavailable Care Team Providers Care Retail Cosmetics Sales Counter Manager Name Role Phone Reji Jacob PCP Reason for Referral * Surgical (Routine) Referred By Contact Referred To Contact Status Reason Specialty Diagnoses / Procedures Tone Medina MD [address] [facility] [address] [place] [address] Reuben Li MD [address] [facility] [place] [address] Authorized Specialty Services Cardiothoracic Diagnoses Required Surgery Ascending aorta dilatation (HCC) Aortic stenosis due to bicuspid aortic valve * MRI/CAT/PET Scan (Routine) Referred By Contact Referred To Contact Status Reason Specialty Diagnoses / Procedures Tone Medina MD [address] [facility] [address] [place] [address] [facility] [address] [place] [address] Closed Cardiology Diagnoses Ascending aorta dilatation (HCC) Aortic stenosis due to bicuspid aortic valve P rocedures CV CT Heart gated study Reason for Visit * Reason Comments Correspondence Encounter Details Care Team Description Date Type Department Savita Reyna, RN Correspondence 08/29/2019 Telephone [facility] [address] [facility] [address] [place] [address] Social History Date Tobacco Use Types Packs/Day [...] Tone Medina MD - 09/19/2019 12:03 AM TACTICAL RESPONSE GROUP OFFICER This is definitely not in media ICAL RESPONSE GROUP OFFICER * Telephone Encounter - Joe Moore RN - 09/18/2019 2:36 PM TACTICAL RESPONSE GROUP OFFICER Spoke with Sindy with chart analysts. SVT ablation is available in care everywher e under documents from [employer]. Date is 10/04/18, type is clinical document only an d provider is Cecilio Verdugo. Routing. ICAL RESPONSE GROUP OFFICER * Addendum Note - Joe Moore RN - 09/17/2019 4:00 PM TACTICAL RESPONSE GROUP OFFICER Addended by: JOE MOORE on: 09/17/2019 04:00 PM Modules accepted: Orders, SmartSet ICAL RESPONSE GROUP OFFICER * Telephone Encounter - Joe Moore RN - 09/17/2019 3:39 PM TACTICAL RESPONSE GROUP OFFICER Received call from patient wanting to schedule with Dr. Li. Discussed thi s is with CTS and provided him number of their office, that they are separate of fice. Placed on hold and discussed with Dr. Guillermo Larson's MA. She never re ceived referral, note this was not entered. Apologized for this, she asked it b e faxed to [phone] attention to her. She states she can offer him 10/23 or 10/27. Transferred call. Referral placed and faxed with confirmation fax receiv ed. ICAL RESPONSE GROUP OFFICER * Telephone Encounter - Pauly Beal LPN - 09/17/2019 2:11 PM TACTICAL RESPONSE GROUP OFFICER Received call from patient stating he had SVT ablation done in 10/[address] Verdugo at [facility] in [place]. I stated I will be routing a message to art seo analyst to request records. He v/u. ARoss ICAL RESPONSE GROUP OFFICER * Telephone Encounter - Savita Reyna RN - 09/05/2019 3:29 PM TACTICAL RESPONSE GROUP OFFICER 10/06/19 THIRD attempt to reach to ask if he was able to find out where this docto r was ICAL RESPONSE GROUP OFFICER * Telephone Encounter - Savita Reyna RN - 09/04/2019 11:42 AM TACTICAL RESPONSE GROUP OFFICER 09/04/19 SECOND attempt to reach, he stated that he would have to call Dr Barber ( ?SP) the EP at [facility] in [place] to get name and location of where he had it done and will call us back. ICAL RESPONSE GROUP OFFICER * Telephone Encounter - Joe Moore RN - 09/02/2019 11:26 AM TACTICAL RESPONSE GROUP OFFICER Spoke with Sindy. She received correspondence from [facility] in [place] rubi t they do not have patient in their record. Note in care everywhere just see th at he had SVT ablation done in [place]. Will call patient to see where had ab lation at and then send back to Sindy to request. Made call to patient and left b [facility] message to return call. ICAL RESPONSE GROUP OFFICER * Addendum Note - Korin Farnsworth RN - 09/01/2019 11:15 AM TACTICAL RESPONSE GROUP OFFICER Addended by: KORIN FARNSWORTH on: 09/01/2019 11:15 AM Modules accepted: Orders, SmartSet ICAL RESPONSE GROUP OFFICER * Telephone Encounter - Korin Farnsworth RN - 09/01/2019 9:10 AM TACTICAL RESPONSE GROUP OFFICER Called Dr. Glen Li's office ph # [phone]. Dr. Li's nurse will be contacting pt to set up appointment for after 08-17-19. She will be back on . They will access pt's outside records through [employer]. No need to fax. CV CT heart gated ordered. LMTCB with pt for more info about VT ablation records. Routed to [facility] to obtain VT ablation records from [facility] in [place], [place]. ICAL RESPONSE GROUP OFFICER * Telephone Encounter - Savita Reyna RN - 08/29/2019 4:42 PM TACTICAL RESPONSE GROUP OFFICER ----- Message from Tone Medina MD sent at 08/29/2019 9:22 AM TACTICAL RESPONSE GROUP OFFICER ----- I just saw him in [place] - he needs to see Dr Glen [...] to get his VT ablation records from [place] (please contact him to get release ) and get it to me for review. I will have echo CDs that need to be loaded for me and Dr Li to review as well - will give to you on Sunday. Thx. ICAL RESPONSE GROUP OFFICER documented in this encounter Plan of Treatment [...]
--- OUTSIDE RECORDS SUMMARY | 2020-02-19 07:52 | XMS REPORT | Encounter Summary ---
Author Author [facility] Organization [facility] Address Unknown Phone Unavailable Care Team Providers Care Protective Clothing Issuer Name Role Phone Reji Jacob PCP Encounter Details Care Team Description Date Type Department Encounter for consultation 10/22/2019 Imaging [facility] Virtual Revenu e Appointment Location Social [...] 10/22/2019 Encounte r for PACS 3:21 PM ART MUSEUM AIDE consultation documented in this encounter Results * [place] Outside images for PACS (10/22/2019 3:21 PM ART MUSEUM AIDE) Specimen Performing Organization Address City/State/Zipcode Ph one Number [place] documented in this encounter Visit Diagnoses Diagnosis Encounter for consultation documented in this encounter
--- OUTSIDE RECORDS SUMMARY | 2020-02-19 07:52 | XMS REPORT | Encounter Summary ---
Author Author [facility] Organization [facility] Address Unknown Phone Unavailable Care Team Providers Care Car Whacker Name Role Phone Reji Jacob PCP Encounter Details Care Team Description Date Type Department Encounter for consultation 10/24/2019 Imaging [facility] Virtual Revenu e Appointment Location Social History [...] 10/24/2019 Encounte r for PACS 8:02 AM INSIGHT DIRECTOR consultation documented in this encounter Results * CT Outside images for PACS (10/24/2019 8:02 AM INSIGHT DIRECTOR) Specimen Performing Organization Address City/State/Zipcode Ph one Number [place] documented in this encounter Visit Diagnoses Diagnosis Encounter for consultation documented in this encounter
--- OUTSIDE RECORDS SUMMARY | 2020-02-19 07:52 | XMS REPORT | Encounter Summary ---
Author Author [facility] Organization [facility] Address Unknown Phone Unavailable Care Team Providers Care Portfolio Assistant Name Role Phone Reji Jacob PCP Reason for Visit * Reason Comments Aortic stenosis Encounter Details Care Team Description Date Type Department Tone Medina MD [address] [facility] [address] [place] [address] [phone] Anxiety (Primary Dx); Ascending aorta dilatation (HCC); Aortic stenosis due to bicuspid aortic valve; Morbid obesity (HCC); VT (ventricular tachycardia) (HCC); Hypersomnolence; Cigarette nicotine dependence without complication 08/25/2019 Initial consult [facility] [address] [place] [address] [address] [place], [place] [id number] Social History Date Tobacco Use Types Packs/Day [...] Comments Vital Sign 124/9 08/29/2019 8:48 AM COUNTER INSTALLER Blood Pressure 80 08/29/2019 8:48 AM COUNTER INSTALLER Pulse - - Temperature - - Respiratory Rate 96% 08/29/2019 8:48 AM COUNTER INSTALLER Oxygen Saturation - - Inhaled Oxygen Concentration 140.6 kg (310 lb) 08/29/2019 8:48 AM COUNTER INSTALLER Weight 180.3 cm (5' 11") 08/29/2019 8:48 AM COUNTER INSTALLER Height 43.24 08/29/2019 8:48 AM COUNTER INSTALLER Body Mass Index documented in this encounter Progress Notes * Tone Medina MD - 08/29/2019 8:00 AM COUNTER INSTALLER [facility] Appointment Date: 08/29/2019 Reji Jacob MD [address] [place] [id number] RE: Carlos Parrish : 1985 Visit provider: [...] pleasure of meeting him today in the [place] [facility]. His history dates back to 2017, when he presented with ventricular tachycardia w ith a heart rate of 260. He was cardioverted. This was in May 2018. In July 2018, he had another episode of ventricular tachycardia requiring defib rillation. Interestingly, a defibrillator was never offered and he was told by Dr. Barber that he had to go to [facility] in [facility] for ablation. This happened in October 2018. He had a loop monitor placed by Dr. Mesa in [place], [place] subsequently. He has had episodes almost every day of palpita tions where he feels like someone hit him in the chest. It is very painful and he has shortness of breath associated with it. However, he has been told by Dr. cSherer office that no arrhythmias had been seen. [...] List Diagnosis SNOMED CT(R) VT (ventricular tachycardia) ([facility]) VENTRICULAR TACHYCARDIA Morbid obesity (HCC) MORBID OBESITY Aortic stenosis due to bicuspid aortic valve CONGENITAL STENOSIS OF AORTIC V ALVE Ascending aorta dilatation (HCC) ASCENDING AORTA DILATATION Anxiety ANXIETY Hypersomnolence HYPERSOMNIA Cigarette nicotine dependence without complication NICOTINE DEPENDENCE Past Medical History: Diagnosis Date Anxiety Aortic stenosis due to bicuspid aortic valve Mean AoV gradient 45 07/22 Ascending aorta dilatation ([facility]) 06/2019 5.0 cm ascending aorta; 3.5 cm at sinuses of Valsalva Depression Morbid obesity ([facility]) VT (ventricular tachycardia) ([facility]) 05/2018 with aberrancy Past Surgical History: Procedure Laterality Date CARDIAC CATHETERIZATION 05/21/2018 normal cors. dilated ascending aorta (47 mm in diameter) CARDIAC CATHETERIZATION 07/10/2019 Performed in [place]. Normal coronaries. ELECTROPHYSIOLOGY STUDY WITH POSSIBLE RFA OF VT 10/2018 Performed at [place] IMPLANTABLE LOOP RECORDER PLACEMENT Performed in [place], [place] RIGHT HEART CATHETERIZATION 07/10/2019 Performed in [place]. RA 14 RV 37/14 PA 39/13/28 PCWP [...] undergo a split night sleep study in [place] as soon as possible. I told parvin [...] I need to get some records from [place] to see what type of ventricular tachycardia he had. If he just had RV outflow tract tachycardia, ablation should be curati ve and no further action will need to be taken, but I would like to review the r ecords and make more recommendations at that time. I may ask for an electrophys iology opinion from one of my colleagues at [facility] to see what their o ughts are. [...] so he does not run up his [facility] bills any more. I have not [...] Medina MD /mimi cc: Traci Li MD TER INSTALLER documented in this encounter Plan of Treatment [...]
--- OUTSIDE RECORDS SUMMARY | 2020-02-19 07:52 | XMS REPORT | Encounter Summary ---
Author Author [facility] Organization [facility] Address Unknown Phone Unavailable Care Team Providers Care Crm Dynamics Developer Name Role Phone Reji Jacob PCP Encounter Details Care Team Description Date Type Department Encounter for consultation 10/24/2019 Imaging [facility] Virtual Revenu e Appointment Location [...] 10/24/2019 Encounte r for PACS 8:01 AM WIRE FRAME LAMP SHADE MAKER consultation documented in this encounter Results * IR Outside images for PACS (10/24/2019 8:01 AM WIRE FRAME LAMP SHADE MAKER) Specimen Performing Organization Address City/State/Zipcode Ph one Number [place] documented in this encounter Visit Diagnoses Diagnosis Encounter for consultation documented in this encounter
--- OUTSIDE RECORDS SUMMARY | 2020-02-19 07:52 | XMS REPORT | Encounter Summary ---
Author Author [facility] Organization [facility] Address Unknown Phone Unavailable Care Team Providers Care Salesperson China And Glassware Name Role Phone Reji Jacob PCP Encounter Details Care Team Description Date Type Department Encounter for consultation 10/22/2019 Imaging [facility] Virtual Revenu e Appointment Location Social [...] 10/22/2019 Encounte r for PACS 3:22 PM COIN MACHINE COLLECTOR SUPERVISOR consultation documented in this encounter Results * CT Outside images for PACS (10/22/2019 3:22 PM COIN MACHINE COLLECTOR SUPERVISOR) Specimen Performing Organization Address City/State/Zipcode Ph one Number [place] documented in this encounter Visit Diagnoses Diagnosis Encounter for consultation documented in this encounter
--- OUTSIDE RECORDS SUMMARY | 2020-02-19 07:52 | XMS REPORT | Encounter Summary ---
Author Author [facility] Organization [facility] Address Unknown Phone Unavailable Care Team Providers Care Evaluation Engineer Name Role Phone Reji Jacob PCP Encounter Details Care Team Description Date Type Department Encounter for consultation 10/24/2019 Imaging [facility] Virtual Revenu e Appointment [...] 10/24/2019 Encounte r for PACS 8:00 AM CHURCH WORKER consultation documented in this encounter Results * CT Outside images for PACS (10/24/2019 8:00 AM CHURCH WORKER) Specimen Performing Organization Address City/State/Zipcode Ph one Number [place] documented in this encounter Visit Diagnoses Diagnosis Encounter for consultation documented in this encounter
--- OUTSIDE RECORDS SUMMARY | 2020-02-19 07:52 | XMS REPORT | Encounter Summary ---
Author Author [facility] Organization [facility] Address Unknown Phone Unavailable Care Team Providers Care Wildlife Photographer Name Role Phone Reji Jacob PCP Encounter Details Care Team Description Date Type Department Encounter for consultation 11/28/2019 Imaging [facility] Virtual Revenu e Appointment Location [...]
--- OUTSIDE RECORDS SUMMARY | 2020-02-19 07:52 | XMS REPORT | Encounter Summary ---
Author Author [facility] Organization [facility] Address Unknown Phone Unavailable Care Team Providers Care Algorithm Developer Name Role Phone Reji Jacob PCP Reason for Visit * Reason Comments Correspondence Encounter Details Care Team Description Date Type Department Joe Harris, RODNEY Correspondence 10/22/2019 Telephone [facility] [address] [place] [address] Social History Date Tobacco Use Types Packs/Day [...] Savita Reyna RN - 10/23/2019 9:32 AM SYSTEMS PROGRAMMER 10/23 call to [facility], spoke with Marsha and she stated that patient was still there and she would speak with Dr Li and call back, Informed her that I left a message for Jazz Becerril about it being approved. EMS PROGRAMMER * Telephone Encounter - Savita Reyna RN - 10/23/2019 9:28 AM SYSTEMS PROGRAMMER 10/23 message left for Jazz Becerril territory manager general sales for CV imaging scheduling to see if melissa ey have reached out to patient EMS PROGRAMMER * Telephone Encounter - Korin Rehman RN - 10/22/2019 4:04 PM SYSTEMS PROGRAMMER Zain to patient. Explained that pt will need to have a gated CV CT tomorrow. Pt gave the following info about his insurance. [employer] # [id number] [facility] Provider services Emailed info to CV Imaging and [employer] so that the CT can be preauthed. Instructed pt that he should be expecting further calls from our office so that he can be looking out for our call. VU. EMS PROGRAMMER * Telephone Encounter - Joe aHrris RN - 10/22/2019 3:12 PM SYSTEMS PROGRAMMER Attempted call to patient again, no answer, VM full. EMS PROGRAMMER * Telephone Encounter - Joe Harris RN - 10/22/2019 2:44 PM SYSTEMS PROGRAMMER Received VM from patient stating he was returning call and to call back. Remy figueroa call to patient, no answer and VM full. Spoke with Marsha. She reports he d oes have Tereza TRISTAN, she is awaiting correspondence from him with his member ID . Attempted call to patient again, no answer, VM full. EMS PROGRAMMER * Telephone Encounter - Joe Harris RN - 10/22/2019 1:40 PM SYSTEMS PROGRAMMER Received call from Marsha with CTS/Dr. Li's office ([facility]) to discuss appointment scheduled tomorrow. She does not have imaging of ec ho/cath report from 2019 and CTA from 2018. She will reach out to [facility] for vy ges but may need [...] back. Discussed with Dr. Medina. He e-mailed [facility] staff who were able to upload to vik stnison. He would like to try for heart [...] Made call to emergency contact listed on [facility] rt, was able to leave brief message that we are needing to reach patient today a nd for someone to call back. E-mail sent to all parties involved. Checked cloud, only see echo and cath, email sent to [facility] staff. EMS PROGRAMMER documented in this encounter Plan of Treatment Not on filedocumented as of this encounter Visit Diagnoses Not on filedocumented in this encounter
--- OUTSIDE RECORDS SUMMARY | 2020-02-19 07:52 | XMS REPORT | Encounter Summary ---
Author Author [facility] Organization [facility] Address Unknown Phone Unavailable Care Team Providers Care Crate Opener Name Role Phone Reji Jacob PCP Encounter Details Care Team Description Date Type Department Encounter for consultation 10/24/[address] [facility] Virtual [...] 10/24/2019 Encounte r for PACS 7:59 AM ROLLER EMBOSSER consultation documented in this encounter Results * CT Outside images for PACS (10/24/2019 7:59 AM ROLLER EMBOSSER) Specimen Performing Organization Address City/State/Zipcode Ph one Number [place] documented in this encounter Visit Diagnoses Diagnosis Encounter for consultation documented in this encounter
--- OUTSIDE RECORDS SUMMARY | 2020-02-19 07:52 | XMS REPORT | Encounter Summary ---
Author Author [facility] Organization [facility] Address Unknown Phone Unavailable Care Team Providers Care Ice Scraper Name Role Phone Reji Jacob PCP Encounter Details Care Team Description Date Type Department Encounter for consultation 10/24/2019 Imaging [facility] Virtual Revenu e Appointment [...] 10/24/2019 Encounte r for PACS 8:01 AM PARACHUTE LINE TIER consultation documented in this encounter Results * US Outside images for PACS (10/24/2019 8:01 AM PARACHUTE LINE TIER) Specimen Performing Organization Address City/State/Zipcode Ph one Number [place] documented in this encounter Visit Diagnoses Diagnosis Encounter for consultation documented in this encounter
--- OUTSIDE RECORDS SUMMARY | 2020-02-19 07:52 | XMS REPORT | Encounter Summary ---
Author Author [facility] Organization [facility] Address Unknown Phone Unavailable Care Team Providers Care Music Professionals Name Role Phone Reji Jacob PCP Encounter Details Care Team Description Date Type Department Encounter for consultation 10/22/2019 Imaging [facility] Virtual Revenu e [...] 10/22/2019 Encounte r for PACS 3:23 PM EDGE GRINDER consultation documented in this encounter Results * IR Outside images for PACS (10/22/2019 3:23 PM EDGE GRINDER) Specimen Performing Organization Address City/State/Zipcode Ph one Number [place] documented in this encounter Visit Diagnoses Diagnosis Encounter for consultation documented in this encounter
--- OUTSIDE RECORDS SUMMARY | 2020-02-19 07:52 | XMS REPORT | Encounter Summary ---
Author Author [facility] Organization [facility] Address Unknown Phone Unavailable Care Team Providers Care Nut Grader Name Role Phone Reji Jacob PCP [...] 10/24/2019 Encounte r for PACS 8:03 AM ACREAGE REPORTER consultation documented in this encounter Results * CT Outside images for PACS (10/24/2019 8:03 AM ACREAGE REPORTER) Specimen Performing Organization Address City/State/Zipcode Ph one Number [place] documented in this encounter Visit Diagnoses Diagnosis Encounter for consultation documented in this encounter
--- OUTSIDE RECORDS SUMMARY | 2020-02-19 07:52 | XMS REPORT | Encounter Summary ---
Author Author [facility] Organization [facility] Address Unknown Phone Unavailable Care Team Providers Care Shafting Worker Name Role Phone Reji Jacob PCP [...] 10/24/2019 Encounte r for PACS 8:04 AM ENGINEERING DESIGN MANAGER consultation documented in this encounter Results * [place] Outside images for PACS (10/24/2019 8:04 AM ENGINEERING DESIGN MANAGER) Specimen Performing Organization Address City/State/Zipcode Ph one Number [place] documented in this encounter Visit Diagnoses Diagnosis Encounter for consultation documented in this encounter
--- OUTSIDE RECORDS SUMMARY | 2020-02-19 07:52 | XMS REPORT | Encounter Summary ---
Author Author [facility] Organization [facility] Address Unknown Phone Unavailable Care Team Providers Care Credit Risk Analytics Manager Name Role Phone Reji Jacob PCP Encounter Details Care Team Description Date Type Department Encounter for consultation 11/28/2019 Imaging [facility] Virtual Revenu e [...]
--- OUTSIDE RECORDS SUMMARY | 2020-02-19 07:52 | XMS REPORT | Encounter Summary ---
Author Author [facility] Organization [facility] Address Unknown Phone Unavailable Care Team Providers Care Central Service Supply Distributor Name Role Phone Reji Jacob PCP Encounter Details Care Team Description Date Type Department Encounter for consultation 10/24/2019 Imaging [facility] Virtual Revenu e [...] 10/24/2019 Encounte r for PACS 8:03 AM SENIOR ARCHITECT consultation documented in this encounter Results * CT Outside images for PACS (10/24/2019 8:03 AM SENIOR ARCHITECT) Specimen Performing Organization Address City/State/Zipcode Ph one Number [place] documented in this encounter Visit Diagnoses Diagnosis Encounter for consultation documented in this encounter
--- OUTSIDE RECORDS SUMMARY | 2020-02-19 07:52 | XMS REPORT | Encounter Summary ---
Author Author [facility] Organization [facility] Address Unknown Phone Unavailable Care Team Providers Care Overlock Sewing Machine Operator Name Role Phone PCP Unavailable Encounter Details Care Team Description Date Type Department Tone Medina MD [address] [place] [address] [phone] 08/27/2019 Orders Only [facility] [address] [place] [address] Social History Date Tobacco Use Types Packs/Day [...]
--- OUTSIDE RECORDS SUMMARY | 2020-02-19 07:53 | XMS REPORT | Encounter Summary ---
Author Author [facility] Organization [facility] Address Unknown Phone Unavailable Care Team Providers Care Digital Hardware Design Engineer Name Role Phone PCP Unavailable Encounter Details Care Team Description Date Type Department Tone Medina MD [address] [place] [address] [phone] 08/19/2019 Documentation [facility] [address] [place] [address] Social History Date Tobacco Use Types Packs/Day [...]
--- OUTSIDE RECORDS SUMMARY | 2020-02-19 07:53 | XMS REPORT | Encounter Summary ---
Author Author [facility] Organization [facility] Address Unknown Phone Unavailable Care Team Providers Care Platinum Smith Name Role Phone PCP Unavailable Encounter Details Care Team Description Date Type Department Sindy John RN 08/26/2019 Abstract [facility] [address] [place] [address] Social History Date Tobacco Use Types Packs/Day [...] car otid artery stenosis. Antegrade vertebral flow. ([facility]) * CV US Lower Extremity Arterial Duplex Outside Record (07/17/2019) Impressions Performed At Right: No evidence of active arterial bleed, or obstruction in common femoral artery. No evidence of deep shane ous thrombosis in the common femoral vein. ([facility]) * Coronary Angiogram Outside Record (07/10/2019) [...] hypertension. See report abo ve for details. ([facility]) * Basic Metabolic Panel (07/10/2019) [facility] Signature Calcium 9.7 8.7 - 10.7 [...] n ow estimated to be 5.0 cm. [email or web address] * XR Outside Record (07/31/2018) Impressions Performed At Negative for acute infiltrate. [facility] * CT Outside Record (05/22/2018) Impressions Performed At 1. 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 No other aneurysm. No dissection or atheromatous disease. 2. Small calcifications of the aortic valve. 3. Otherwise, normal study. [email or web address] * Coronary Angiogram Outside Record (05/21/2018) Impressions [...] discussed above. 4. See report for details. ([facility]) * Echo Outside Record (05/21/2018) Ejection Fraction [...] aorta about 44 mm in diameter . ([facility]) documented in this encounter Visit Diagnoses Diagnosis SVT (supraventricular tachycardia) (HCC ) Other specified cardiac dysrhythmias Morbid obesity (HCC) Morbid obesity Bicuspid aortic valve Congenital insufficiency of aortic valv e Ascending aorta dilatation (HCC) Thoracic aneurysm without mention of ru pture Anxiety Anxiety state, unspecified documented in this encounter
--- OUTSIDE RECORDS SUMMARY | 2020-02-19 07:55 | XMS REPORT ---
Author Author Carlos Calixto Organization [facility] Address [address] [place] [address] Care Team Providers Care Industrial Maintenance Technician Name Role Phone CAROLE Calixto Unavailable PROBLEMS Type Condition ICD9-CM Code BFA74-TU Code Onset Dates Condition S tatus SNOMED Code Problem Anxiety F41.9 Active 80423077 Problem Mixed hyperlipidemia E78.2 Active 123792293 Problem Dental caries on smooth surface penetrating into pulp K02.63 Active 465027643 Problem Heart murmur, aortic I35.8 Active 544692466 Problem Aortic aneurysm without rupture, unspecified portion of ao rta I71.9 Active 11441341 ALLERGIES No Known Allergies ENCOUNTERS Encounter Location Date Diagnosis [address] [id number] [address] January, [facility] [address] [place] [address] January, [address] [id number], [place] [address] Dec, [address] [id number], [place] [address] Dec, [address] [id number], [place] [address] Dec, [facility] [address] [facility] [id number] [address] [place] [address] Dec, [address] [id number], [place] [address] Nov, [address] [id number] [place] [address] Nov, [address] [id number], [place] [address] Nov, [facility] [address] [id number] [place] [address] Nov, [facility] [address] [id number], [place] [address] Oct, Anxiety F41.9 [facility] [address] [id number] [address] [place] [id number] Oct, Dental examination Z01.20 an d Caries K02.9 [facility] [address] [id number] [place] [address] Jul, [facility] [address] [id number], [place] [address] Jul, Nausea and vomiting, intract ability of vomiting not specified, unspecified vomiting type R11.2 [facility] [address] [id number], [place] [address] Jul, [facility] [address] [id number] [place] [address] Jul, [facility] [address] [id number] [place] [address] Apr, Gastroenteritis K52.9 [facility] [address] [id number], [place] [address] Mar, [facility] [address] [id number], [place] [address] Mar, [facility] [address] [id number], [place] [address] Feb, [place] of foot L84 and Morbid obesity E66.01 [facility] [address] [id number] [place] [address] Feb, [facility] [address] [id number] [place] [address] Dec, Heart murmur, aortic I35.8 ; Aortic aneurysm without rupture, unspecified portion of aorta I71.9 ; History of PSVT (paroxysmal supraventricular tachycardia) Z86.79 ; Mixed hyperlipidemia E78.2 and Anxiety F41.[address] [id number], [place] [address] Dec, [place] of left testicle N50.[address] [id number] [place] [address] Dec, [place] of left testicle N50.9 [facility] [address] [facility] [id number] [address] [place] [address] Dec, [place] of left testicle N50.[address] [id number], [place] [address] Nov, Wellness examination Z00.[address] [id number], [place] [address] Nov, [facility] [address] [id number] [place] [address] Nov, Pre-employment health screen ing examination Z02.1 ; Murmur, cardiac R01.1 and Morbid obesity E66.01 [facility] [place] [address] [place] [address] Dec, 18 Dental examination Z01.20 [facility] [address] [facility] [id number] [address] [place] [address] Oct, [facility] [address] [place] [id number] [address] [place] [address] Oct, [facility] [address] [facility] [id number] [address] [place] [address] Oct, Hordeolum internum of right lower eyelid H00.022 [facility] [address] [facility] [id number] [address] [place] [address] 13 Oct, 2016 Heart murmur, aortic I35.8 [facility] [address] [place] [id number] [address] [place] [address] 10 Jun, 2016 [facility] [address] [place] [id number] [address] [place] [address] 05 Jun, 2016 Cough R05 [facility] [place] [address] [place] [address] 14 Aug, 15 Dental examination Z01.20 [facility] [place] [address] [place] [address] 10 Aug, Dental examination Z01.20 and Dental caries on smooth surface penetrating into pulp K02.63 [facility] [address] [facility] [id number] [address] [place] [id number] Apr, Dental examination V72.2 [facility] [address] [place] [id number] [address] [place] [id number] Mar, Dental examination V72.2 [facility] [address] [place] [id number] [address] [place] [address] Jun, [facility] [address] [place] [id number] [address] [place] [address] Apr, [facility] [address] [place] [id number] [address] [place] [address] Apr, IMMUNIZATIONS No Known Immunizations SOCIAL HISTORY Never Assessed REASON FOR VISIT lump in testicle. Noticed it last night. -Windy TOLEDO PLAN OF CARE Activity Details Follow Up prn Reason: VITAL SIGNS Height 71 in 2018-12-02 Weight 315 lbs 2018-12-02 Temperature 98.0 degrees Fahrenheit 2018-12-02 Heart Rate 111 bpm 2018-12-02 Respiratory Rate 20 2018-12-02 BMI 43.93 kg/m2 2018-12-02 Blood pressure systolic 108 mmHg 2018-12-02 Blood pressure diastolic 68 mmHg 2018-12-02 MEDICATIONS Medication Instructions Dosage Frequency Start Date End Date Duration S tatus Ibuprofen Not-Taking Metoprolol Tartrate 100 MG Orally Twice a day 1 tablet with food 12h 30 day(s) Active Ativan 0.5 MG Orally every 6 hrs 1 tablet as needed 6h Active RESULTS No Results PROCEDURES No Known procedures INSTRUCTIONS MEDICATIONS ADMINISTERED No Known Medications MEDICAL (GENERAL) HISTORY Type Description Date Medical History back pain Medical History heart murmur Medical History heart ablation oct 2018 Medical History Heart Cath Surgical History tonsillectomy Surgical History Ablation Oct 2018 Hospitalization History surgical
--- OUTSIDE RECORDS SUMMARY | 2020-02-19 07:56 | XMS REPORT | Continuity of Care Document ---
Demographics Preferred Language Unknown Marital Status Unknown [employer] Affiliation Unknown Race Unknown Ethnic Group Unknown Author Organization Unknown Address Unknown Phone Unavailable Allergies Active Description Code Type Severity Reaction Onset Reported/Identified Relationship to Patient Clinical Status Yes No Known Drug Allergies [id number] Drug Allergy Mild N/A 01/01/2019 Medications There [...] I47.1 SUPRAVENTRICULAR TACHYCARDIA 10/07/2018 SADIE BADILLO FACC, SHEFAIL FACP CCDS Ot Z87.891 PERSONAL HISTORY OF [...] PALPITATIONS 01/02/2019 Yessi MEDEROS MD Ot Z79.82 CARE HOME (CURRENT) USE OF ASPIRIN 01/02/2019 Yessi MEDEROS MD Ot Z79.899 OTHER CARE HOME (CURRENT) DRUG THERAPY 01/02/2019 KERVIN MUNOZ [...] G43.909 MIGRAINE, UNSP, NOT INTRACTABLE, WITHOUT 01/03/2019 SANDRITA BUTLER MD Ot R51 HEADACHE 01/03/2019 SANDRITA [...] .2 VENTRICULAR TACHYCARDIA 01/06/2019 GATITO BADILLO, Yessi BRUTON Ot 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 THORACIC AORTIC ANEURYSM, 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 01/06/2019 GATITO BADILLO, Yessi BURTON Ot R00 .2 PALPITATIONS 01/06/2019 GATITO BADILLO, Yessi BURTON Ot Z79.82 ASSISTANT OPERATOR (CURRENT) USE OF ASPIRIN 01/06/2019 GATITO BADILLO, Yessi BURTON Ot Z79.899 OTHER ASSISTANT OPERATOR (CURRENT) DRUG THERAPY 04/30/2019 MIKEL CASTLE [...] MAJOR CORRALES MD J Ot Z79.899 OTHER ASSISTANT OPERATOR (CURRENT) DRUG THERAPY 11/18/2019 MAJOR CORRALES MD [...] MAJOR CORRALES MD J Ot Z79.899 OTHER CARE HOME (CURRENT) DRUG THERAPY 11/27/2019 Yessi MEDEROS MD Ot F17.210 NICOTINE DEPENDENCE, CIGARETTES, UNCOMPL 11/27/2019 GATITO BADILLO, Yessi BURTON Ot I35 .0 NONRHEUMATIC AORTIC (VALVE) STENOSIS 11/27/2019 Yessi MEDEROS MD Ot I71 .2 THORACIC AORTIC ANEURYSM, 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 11/27/2019 Yessi MEDEROS MD Ot Z11 .2 ENCOUNTER FOR SCREENING FOR OTHER BACTER 11/27/2019 Yessi MEDEROS MD Ot Z79.899 OTHER CARE HOME (CURRENT) DRUG THERAPY 11/28/2019 Yessi MEDEROS MD Ot F17.210 NICOTINE DEPENDENCE, CIGARETTES, UNCOMPL 11/28/2019 Yessi MEDEROS MD Ot I35 .0 NONRHEUMATIC AORTIC (VALVE) STENOSIS 11/28/2019 Yessi MEDEROS MD Ot 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 THORACIC AORTIC ANEURYSM, 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 11/28/2019 Yessi MEDEROS MD Ot Z11 .2 ENCOUNTER FOR SCREENING FOR OTHER BACTER 11/28/2019 Yessi MEDEROS MD Ot Z79.899 OTHER ASSISTANT OPERATOR (CURRENT) DRUG THERAPY 12/18/[facility] PURE HYPERCHOLESTEROLEMIA, UNSPECIFIED 12/18/2019 [facility] F17.210 NICOTINE DEPENDENCE, CIGARETTES, UNCOMPL 12/18/2019 [facility] G89.29 OTHER CHRONIC PAIN 12/18/2019 SADIQ DOKARINA Ot I48.91 UNSPECIFIED ATRIAL FIBRILLATION 12/18/2019 [facility] I51.7 CARDIOMEGALY 12/18/2019 [facility] J98.11 ATELECTASIS 12/18/2019 [facility] M54.9 DORSALGIA, UNSPECIFIED 12/18/2019 [facility] R07.89 OTHER CHEST PAIN 12/18/2019 [facility] R07.9 CHEST PAIN, UNSPECIFIED 12/18/2019 [facility] Z95.2 PRESENCE OF PROSTHETIC HEART VALVE 12/18/2019 SADIQ DO, KARINA Ventura Ot E78.00 PURE HYPERCHOLESTEROLEMIA, UNSPECIFIED 12/18/2019 SADIQ DO, KARINA Ventura Ot F17.210 NICOTINE DEPENDENCE, CIGARETTES, UNCOMPL 12/18/2019 SADIQ DO, KARINA Ventura Ot G89.29 OTHER CHRONIC PAIN 12/18/2019 SADIQ DO, KARINA Ventura Ot I48.91 UNSPECIFIED ATRIAL FIBRILLATION 12/18/2019 SADIQ DO, KARINA Ventura Ot I51.7 CARDIOMEGALY 12/18/2019 SADIQ DO, KARINA Ventura Ot J98.11 ATELECTASIS 12/18/2019 SADIQ DO, KARINA Ventura Ot M54.9 DORSALGIA, UNSPECIFIED 12/18/2019 [facility] DO, KARINA Ventura Ot R07.89 OTHER CHEST PAIN 12/18/2019 SADIQ DO, KARINA Ventura Ot R07.9 CHEST PAIN, UNSPECIFIED 12/18/2019 SADIQ DO, KARINA Ventura Ot Z95.2 PRESENCE OF PROSTHETIC HEART VALVE 12/22/2019 CORTEZ DO, AMI Ot D64.9 ANEMIA, UNSPECIFIED 12/22/2019 CORTEZ DO, AMI Ot E78.00 PURE HYPERCHOLESTEROLEMIA, UNSPECIFIED 12/22/2019 CORTEZ DO, AMI Ot F12.90 CANNABIS USE, UNSPECIFIED, UNCOMPLICATED 12/22/2019 CORTEZ DO, AMI Ot F17.21 0 NICOTINE DEPENDENCE, CIGARETTES, UNCOMPL 12/22/2019 CORTEZ DO, AMI Ot I31.3 PERICARDIAL EFFUSION (NONINFLAMMATORY) 12/22/2019 CORTEZ DO, AMI Ot I48.91 UNSPECIFIED ATRIAL FIBRILLATION 12/22/2019 CORTEZ DO, AMI Ot I48.92 UNSPECIFIED ATRIAL FLUTTER 12/22/2019 CORTEZ DO, AMI Ot M54.9 DORSALGIA, UNSPECIFIED 12/22/2019 CORTEZ DO, AMI Ot Z79.01 CARE HOME (CURRENT) USE OF ANTICOAGULANT 12/22/2019 CORTEZ DO, AMI Ot Z90.89 ACQUIRED ABSENCE OF OTHER ORGANS 12/22/2019 CORTEZ DO, AMI Ot Z95.2 PRESENCE OF PROSTHETIC HEART VALVE 12/25/2019 Yessi MEDEROS MD Ot I31 .3 PERICARDIAL EFFUSION (NONINFLAMMATORY) 12/25/2019 Yessi MEDEROS MDN Ot R00 .0 TACHYCARDIA, UNSPECIFIED 12/25/2019 GATITO BADILLO, Yessi BURTON Ot Z95 .2 PRESENCE OF PROSTHETIC HEART VALVE 12/25/2019 GATITO BADILLO, Yessi BURTON Ot I31 .3 PERICARDIAL EFFUSION (NONINFLAMMATORY) 12/25/2019 GATITO BADILLO, Yessi BURTON Ot R00 .0 TACHYCARDIA, UNSPECIFIED 12/25/2019 GATITO BADILLO, Yessi BURTON Ot Z95 .2 PRESENCE OF PROSTHETIC HEART VALVE 12/26/2019 GATITO BADILLO, Yessi BURTON Ot I31 .3 PERICARDIAL EFFUSION (NONINFLAMMATORY) 12/26/2019 GATITO BADILLO, Yessi BURTON Ot R00 .0 TACHYCARDIA, UNSPECIFIED 12/26/2019 GATITO BADILLO, Yessi BURTON Ot Z95 .2 PRESENCE OF PROSTHETIC HEART VALVE 01/09/2020 Yessi MEDEROS MD Ot I31 .3 PERICARDIAL EFFUSION (NONINFLAMMATORY) 01/09/2020 Yessi MEDEROS MD, Ot R00 .0 TACHYCARDIA, UNSPECIFIED 01/09/2020 GATITO BADILLO, Yessi BURTON Ot Z95 .2 PRESENCE OF PROSTHETIC HEART VALVE 01/09/2020 YULIYA DO, DAVE Michael Ot F17.210 NICOTINE DEPENDENCE, CIGARETTES, UNCOMPL 01/09/2020 YULIYA DOSAPPHIREA Michael Ot G89.18 OTHER ACUTE POSTPROCEDURAL PAIN 01/09/2020 YULIYA DOSAPPHIREA K Ot G89.29 OTHER CHRONIC PAIN 01/09/2020 YULIYA DOSAPPHIREA Michael Ot I48.91 UNSPECIFIED ATRIAL FIBRILLATION 01/09/2020 YULIYA DO, DAVE Michael Ot M54.9 DORSALGIA, UNSPECIFIED 01/09/2020 YULIYA DO, DAVE K Ot R07.9 CHEST PAIN, UNSPECIFIED 01/09/2020 YULIYA DOSAPPHIREA Michael Ot R53.1 WEAKNESS 01/09/2020 YULIYA DOSAPPHIREA Michael Ot R55 SYNCOPE AND COLLAPSE 01/09/2020 YULIYA DOSAPPHIREA Michael Ot Z79.01 ASSISTANT OPERATOR (CURRENT) USE OF ANTICOAGULANT 01/09/2020 YULIYA DOSAPPHIREA Michael Ot Z95.2 PRESENCE OF PROSTHETIC HEART VALVE 01/12/2020 YULIYA DO, DAVE K Ot F17.210 NICOTINE DEPENDENCE, CIGARETTES, UNCOMPL 01/12/2020 YULIYA DO, DAVE K Ot G89.18 OTHER ACUTE POSTPROCEDURAL PAIN 01/12/2020 YULIYA DO, DAVE K Ot G89.29 OTHER CHRONIC PAIN 01/12/2020 YULIYA DO, DAVE K Ot I48.91 UNSPECIFIED ATRIAL FIBRILLATION 01/12/2020 YULIYA DO, DAVE K Ot M54.9 DORSALGIA, UNSPECIFIED 01/12/2020 YULIYA DO, DAVE K Ot R07.9 CHEST PAIN, UNSPECIFIED 01/12/2020 YULIYA DO, DAVE K Ot R53.1 WEAKNESS 01/12/2020 YULIYA DO, DAVE K Ot R55 SYNCOPE AND COLLAPSE 01/12/2020 YULIYA DO, DAVE K Ot Z79.01 ASSISTANT OPERATOR (CURRENT) USE OF ANTICOAGULANT 01/12/2020 YULIYA DO, DAVE K Ot Z95.2 PRESENCE OF PROSTHETIC HEART VALVE 01/15/2020 YULIYA DO, DAVE K Ot F17.210 NICOTINE DEPENDENCE, CIGARETTES, UNCOMPL 01/15/2020 YULIYA DO, DAVE K Ot G89.18 OTHER ACUTE POSTPROCEDURAL PAIN 01/15/2020 YULIYA DO, DAVE K Ot G89.29 OTHER CHRONIC PAIN 01/15/2020 YULIYA DO, DAVE K Ot I48.91 UNSPECIFIED ATRIAL FIBRILLATION 01/15/2020 YULIYA DO, DAVE K Ot M54.9 DORSALGIA, UNSPECIFIED 01/15/2020 YULIYA DO, DAVE K Ot R07.9 CHEST PAIN, UNSPECIFIED 01/15/2020 YULIYA DO, DAVE K Ot R53.1 WEAKNESS 01/15/2020 YULIYA DO, DAVE K Ot R55 SYNCOPE AND COLLAPSE 01/15/2020 YULIYA DO, DAVE K Ot Z79.01 CARE HOME (CURRENT) USE OF ANTICOAGULANT 01/15/2020 YULIYA DO, DAVE K Ot Z95.2 PRESENCE OF PROSTHETIC HEART VALVE 01/28/2020 Yessi MEDEROS MD Ot I31 .3 PERICARDIAL EFFUSION (NONINFLAMMATORY) 01/28/2020 Yessi MEDEROS MD Ot R00 .0 TACHYCARDIA, UNSPECIFIED 01/28/2020 Yessi MEDEROS MD Ot Z95 .2 PRESENCE OF PROSTHETIC HEART VALVE 02/11/2020 Yessi MEDEROS MD, Ot I31 .3 PERICARDIAL EFFUSION (NONINFLAMMATORY) 02/11/2020 Yessi MEDEROS MD, Ot R00 .0 TACHYCARDIA, UNSPECIFIED 02/11/2020 Yessi MEDEROS MD, Ot Z95 .2 PRESENCE OF PROSTHETIC HEART VALVE 02/11/2020 Yessi MEDEROS MD, Ot I31 .3 PERICARDIAL EFFUSION (NONINFLAMMATORY) 02/11/2020 Yessi MEDEROS MD, Ot R00 .0 TACHYCARDIA, UNSPECIFIED 02/11/2020 Yessi MEDEROS MD, Ot Z95 .2 PRESENCE OF PROSTHETIC HEART VALVE 02/16/2020 JEREMIAS MEDEROS MD, Ot Z01.812 ENCOUNTER FOR PREPROCEDURAL LABORATORY E 02/16/2020 JEREMIAS MEDEROS MD, Ot Z20.828 CONTACT W AND EXPOSURE TO OTH VIRAL COMM 02/19/2020 Yessi MEDEROS MD, Ot I48.92 UNSPECIFIED ATRIAL FLUTTER 02/19/2020 Yessi MEDEROS MD, Ot E66 .9 OBESITY, UNSPECIFIED 02/19/2020 Yessi MEDEROS MD, Ot F17.210 NICOTINE DEPENDENCE, CIGARETTES, UNCOMPL 02/19/2020 Yessi MEDEROS MD, Ot I35 .0 NONRHEUMATIC AORTIC (VALVE) STENOSIS 02/19/2020 Yessi MEDEROS MD, Ot I48 .3 TYPICAL ATRIAL FLUTTER 02/19/2020 Yessi MEDEROS MD, Ot Z68.41 BODY MASS INDEX (BMI) 40.0-44.9, ADULT 02/19/2020 Yessi MEDEROS MD, Ot Z79.899 OTHER ASSISTANT OPERATOR (CURRENT) DRUG THERAPY 02/19/2020 Yessi MEDEROS MD, Ot Z82 .3 FAMILY HISTORY OF STROKE 02/19/2020 Yessi MEDEROS MD, Ot Z83 .3 FAMILY HISTORY OF DIABETES MELLITUS 02/19/2020 Yessi MEDEROS MD, Ot Z95 .2 PRESENCE OF PROSTHETIC HEART VALVE 02/19/2020 Yessi MEDEROS MD, Ot E66.01 MORBID (SEVERE) OBESITY DUE TO EXCESS CA 02/19/2020 Yessi MEDEROS MD, Ot F17.210 NICOTINE DEPENDENCE, CIGARETTES, UNCOMPL 02/19/2020 Yessi MEDEROS MD, Ot I35 .0 NONRHEUMATIC AORTIC (VALVE) STENOSIS 02/19/2020 Yessi MEDEROS MD, Ot I45.10 UNSPECIFIED RIGHT BUNDLE-BRANCH BLOCK 02/19/2020 Yessi MEDEROS MD, Ot I47 .1 SUPRAVENTRICULAR TACHYCARDIA 02/19/2020 Yessi MEDEROS MD, Ot I48 .3 TYPICAL ATRIAL FLUTTER 02/19/2020 Yessi MEDEROS MD, Ot Z68.41 BODY MASS INDEX (BMI) 40.0-44.9, ADULT 02/19/2020 Yessi MEDEROS MD, Ot Z79.899 OTHER CARE HOME (CURRENT) DRUG THERAPY 02/19/2020 Yessi MEDEROS MD, Ot Z82 .3 FAMILY HISTORY OF STROKE 02/19/2020 Yessi MEDEROS MD, Ot Z83 .3 FAMILY HISTORY OF DIABETES MELLITUS 02/19/2020 Yessi MEDEROS MD, Ot Z90.89 ACQUIRED ABSENCE OF OTHER ORGANS 02/19/2020 Yessi MEDEROS MD, Ot Z95 .2 PRESENCE OF PROSTHETIC HEART VALVE Procedures Code Description Performed By Per guerda On [id number] RE STORATION OF CARDIAC RHYTHM, SINGLE 12/21/2019 Results Test Result Range CBC+Platelet+Hem Review - [...] NRG Whole blood basic metabolic panel - 05/09/21 08:00 Serum or plasma sodium measurement (moles/volume) [...] INFLUENZA A AND B ANTIGENS BY IA [facility] Bacterial throat culture - 12/17/19 23:5 5 Bacterial throat culture NBS [facility] TROPONIN I FS - 12/18/19 02:05 TROPONIN I FS < 0.30 <0.30 Complete blood count (CBC) with automate d white blood cell (WBC) differential - 12/21/19 20:15 Blood leukocytes automated count (number/volume) 8.2 10*3/uL 4.3-11.0 Blood erythrocytes automated count (number/volume) 4.30 10*6/uL 4.35-5.85 Venous blood hemoglobin measurement (mass/volume) 11.7 g/dL 13.3-17.7 Blood hematocrit (volume fraction) 35 % 40-54 Automated erythrocyte mean corpuscular volume 81 [ foz_us] 80-99 Automated erythrocyte mean corpuscular h emoglobin (mass per erythrocyte) 27 pg 25-34 Automated erythrocyte mean corpuscular h emoglobin concentration measurement (mass/volume) 34 g/dL 32-36 Automated erythrocyte distribution width ratio 12. 8 % 10.0- 14.5 Automated blood platelet count (count/volume) 332 10*3/uL 130-400 Automated blood platelet mean volume measurement 9.5 [foz_us] 7.4-10.4 Automated blood neutrophils/100 leukocytes 68 % 42-75 Automated blood lymphocytes/100 leukocytes 22 % 12-44 Blood monocytes/100 leukocytes 8 % 0-12 Automated blood eosinophils/100 leukocytes 2 % 0-10 Automated blood basophils/100 leukocytes 0 % 0-10 Blood neutrophils automated count (number/volume) 5.5 10*3 1.8-7.8 Blood lymphocytes automated count (number/volume) 1.8 10*3 1.0-4.0 Blood monocytes automated count (number/volume) 0. 6 10*3 0.0-1.0 Automated eosinophil count 0.2 10*3/uL 0 .0-0.3 Automated blood basophil count (count/volume) 0.0 10*3/uL 0.0-0.1 PT panel in platelet poor plasma by coag ulation assay - 12/21/19 20:15 Prothrombin time (PT) in platelet poor plasma by coagu lation assay 20.6 s 12.2-14.7 INR in platelet poor plasma or blood by coagulation as say 1.7 0.8-1.4 Comprehensive metabolic panel - 12/21/19 20:15 Serum or plasma sodium measurement (moles/volume) 139 mmol/L 135-145 Serum or plasma potassium measurement (moles/volume) 3.7 mmol/L 3.6-5.0 Serum or plasma chloride measurement (moles/volume) 101 mmol/L 98-107 Carbon dioxide 22 mmol/L 21-32 Serum or plasma anion gap determination (moles/volume) 16 mmol/L 5-14 Serum or plasma urea nitrogen measurement (mass/volume ) 9 mg/dL 7-18 Serum or plasma creatinine measurement (mass/volume) 0.77 mg/dL 0.60-1.30 Serum or plasma urea nitrogen/creatinine [...] plasma alkaline phosphatase rojelio surement (enzymatic activity/volume) 86 U/L 40-136 Serum or plasma aspartate aminotransfera se measurement (enzymatic activity/volume) 19 U/L 5-34 Serum or plasma alanine aminotransferase measurement (enzymatic activity/volume) 23 U/L 0-55 Serum or plasma protein measurement (mass/volume) 7.2 g/dL 6.4-8.2 Serum or plasma albumin measurement (mass/volume) 3.8 g/dL 3.2-4.5 CALCIUM CORRECTED 9.6 mg/dL 8.5-10.1 TROPONIN I FS - 12/21/19 20:15 TROPONIN I FS < 0.30 <0.30 PROBNP FS - 12/21/19 20:15 PROBNP FS 633.6 pg/mL <75.0 CRP FS - 12/21/19 20:15 CRP FS 5.67 mg/dL <0.50 Methicillin resistant Staphylococcus aur eus (MRSA) screening culture - 12/21/19 23:34 Methicillin resistant Staphylococcus aureus (MRSA) scr eening culture NEG NRG Complete blood count (CBC) with automate d white blood cell (WBC) differential - 12/22/19 03:34 Blood leukocytes automated count (number/volume) 6.7 10*3/uL 4.3-11.0 Blood erythrocytes automated count (number/volume) 3.41 10*6/uL 4.35-5.85 Venous blood hemoglobin measurement (mass/volume) 9.2 g/dL 13.3-17.7 Blood hematocrit (volume fraction) 28 % 40-54 Automated erythrocyte mean corpuscular volume 82 [ foz_us] 80-99 Automated erythrocyte mean corpuscular h emoglobin (mass per erythrocyte) 27 pg 25-34 Automated erythrocyte mean corpuscular h emoglobin concentration measurement (mass/volume) 33 g/dL 32-36 Automated erythrocyte distribution width ratio 13. 1 % 10.0- 14.5 Automated blood platelet count (count/volume) 257 10*3/uL 130-400 Automated blood platelet mean volume measurement 9.6 [foz_us] 7.4-10.4 Automated blood neutrophils/100 leukocytes 68 % 42-75 Automated blood lymphocytes/100 leukocytes 19 % 12-44 Blood monocytes/100 leukocytes 11 % 0-12 Automated blood eosinophils/100 leukocytes 1 % 0-10 Automated blood basophils/100 leukocytes 0 % 0-10 Blood neutrophils automated count (number/volume) 4.6 10*3 1.8-7.8 Blood lymphocytes automated count (number/volume) 1.3 10*3 1.0-4.0 Blood monocytes automated count (number/volume) 0. 7 10*3 0.0-1.0 Automated eosinophil count 0.1 10*3/uL 0 .0-0.3 Automated blood basophil count (count/volume) 0.0 10*3/uL 0.0-0.1 Whole blood basic metabolic panel - 12/03 03:34 Serum or plasma sodium measurement (moles/volume) 137 mmol/L 135-145 Serum or plasma potassium measurement (moles/volume) 4.0 mmol/L 3.6-5.0 Serum or plasma chloride measurement (moles/volume) 109 mmol/L 98-107 Carbon dioxide 20 mmol/L 21-32 Serum or plasma anion gap determination (moles/volume) 8 mmol/L 5-14 Serum or plasma urea nitrogen measurement (mass/volume ) 7 mg/dL 7-18 Serum or plasma creatinine measurement (mass/volume) 0.70 mg/dL 0.60-1.30 Serum or plasma urea nitrogen/creatinine mass ratio 10 NRG Serum or plasma creatinine measurement w ith calculation of estimated glomerular filtration rate > NRG Serum or plasma glucose measurement (mass/volume) 96 mg/dL 70-105 Serum or plasma calcium measurement (mass/volume) 7.8 mg/dL 8.5-10.1 Serum or plasma phosphate measurement (m ass/volume) - 12/22/19 03:34 Serum or plasma phosphate measurement (mass/volume) 3.8 mg/dL 2.3-4.7 Magnesium - 12/22/19 03:34 Magnesium 1.7 mg/dL 1.6-2.4 Serum or plasma troponin i.cardiac measu rement (mass/volume) - 12/22/19 03:34 Serum or plasma troponin i.cardiac measurement (mass/v olume) < ng/mL <0.028 Urine drug screening test - 12/22/19 08: 50 Urine phencyclidine detection by screening method NEGATIVE NEGATIVE Urine benzodiazepines detection by screening method NEGATIVE NEGATIVE Urine cocaine detection NEGATIVE NEGATI VE Urine amphetamines detection by screening method N EGATIVE NEGATIVE Urine methamphetamine detection by screening method NEGATIVE NEGATIVE Urine cannabinoids detection by screening method P OSITIVE NEGATIVE Urine opiates detection by screening method NEGATI VE NEGATIVE Urine barbiturates detection NEGATIVE N EGATIVE Screening urine tricyclic antidepressants detection NEGATIVE NEGATIVE Urine methadone detection by screening method NEGA TIVE NEGATIVE Urine oxycodone detection NEGATIVE NEGA TIVE Urine propoxyphene detection NEGATIVE N EGATIVE PT/INR - 12/31/19 13:31 INR 2.9 NRG PT 28.5 sec 9.0-11.5 Complete blood count (CBC) with automate d white blood cell (WBC) differential - 01/09/20 02:10 Blood leukocytes automated count (number/volume) 10.3 10*3/uL 4.3-11.0 Blood erythrocytes automated count (number/volume) 5.12 10*6/uL 4.35-5.85 Venous blood hemoglobin measurement (mass/volume) 13.3 g/dL 13.3-17.7 Blood hematocrit (volume fraction) 39 % 40-54 Automated erythrocyte mean corpuscular volume 76 [ foz_us] 80-99 Automated erythrocyte mean corpuscular h emoglobin (mass per erythrocyte) 26 pg 25-34 Automated erythrocyte mean corpuscular h emoglobin concentration measurement (mass/volume) 34 g/dL 32-36 Automated erythrocyte distribution width ratio 14. 5 % 10.0- 14.5 Automated blood platelet count (count/volume) 338 10*3/uL 130-400 Automated blood platelet mean volume measurement 9.2 [foz_us] 7.4-10.4 Automated blood neutrophils/100 leukocytes 71 % 42-75 Automated blood lymphocytes/100 leukocytes 22 % 12-44 Blood monocytes/100 leukocytes 6 % 0-12 Automated blood eosinophils/100 leukocytes 2 % 0-10 Automated blood basophils/100 leukocytes 0 % 0-10 Blood neutrophils automated count (number/volume) 7.3 10*3 1.8-7.8 Blood lymphocytes automated count (number/volume) 2.2 10*3 1.0-4.0 Blood monocytes automated count (number/volume) 0. 6 10*3 0.0-1.0 Automated eosinophil count 0.2 10*3/uL 0 .0-0.3 Automated blood basophil count (count/volume) 0.0 10*3/uL 0.0-0.1 Comprehensive metabolic panel - 01/09/20 02:10 Serum or plasma sodium measurement (moles/volume) 140 mmol/L 135-145 Serum or plasma potassium measurement (moles/volume) 4.1 mmol/L 3.6-5.0 Serum or plasma chloride measurement (moles/volume) 106 mmol/L 98-107 Carbon dioxide 23 mmol/L 21-32 Serum or plasma anion gap determination (moles/volume) 11 mmol/L 5-14 Serum or plasma urea nitrogen measurement (mass/volume ) 12 mg/dL 7-18 Serum or plasma creatinine measurement (mass/volume) 1.05 mg/dL 0.60-1.30 Serum or plasma urea nitrogen/creatinine mass ratio 11 NRG Serum or plasma creatinine measurement w ith calculation of estimated glomerular filtration rate > NRG Serum or plasma glucose measurement (mass/volume) 106 mg/dL 70-105 Serum or plasma calcium measurement (mass/volume) 9.3 mg/dL 8.5-10.1 Serum or plasma total bilirubin measurement (mass/volu me) 0.2 mg/dL 0.1-1.0 Serum or plasma alkaline phosphatase rojelio surement (enzymatic activity/volume) 64 U/L 40-136 Serum or plasma aspartate aminotransfera se measurement (enzymatic activity/volume) 24 U/L 5-34 Serum or plasma alanine aminotransferase measurement (enzymatic activity/volume) 38 U/L 0-55 Serum or plasma protein measurement (mass/volume) 7.4 g/dL 6.4-8.2 Serum or plasma albumin measurement (mass/volume) 4.2 g/dL 3.2-4.5 CALCIUM CORRECTED 9.1 mg/dL 8.5-10.1 PT panel in platelet poor plasma by coag ulation assay - 01/09/20 02:10 Prothrombin time (PT) in platelet poor plasma by coagu lation assay 30.9 s 12.2-14.7 INR in platelet poor plasma or blood by coagulation as say 2.8 0.8-1.4 Activated partial thromboplastin time (a PTT) in platelet poor plasma bycoagulation assay - 01/09/20 02:10 Activated partial thromboplastin time (a PTT) in platelet poor plasma bycoagulation assay 55 s 24-35 Magnesium - 01/09/20 02:10 Magnesium 1.9 mg/dL 1.6-2.4 Serum or plasma creatine kinase measurem ent (enzymatic activity/volume) - 01/09/20 02:10 Serum or plasma creatine kinase measurem ent (enzymatic activity/volume) 122 U/L 30-200 Serum or plasma creatine kinase MB measu rement (enzymatic activity/volume) - 01/09/20 02:10 Serum or plasma creatine kinase MB measu rement (enzymatic activity/volume) 1.1 ng/mL <6.6 Serum or plasma troponin i.cardiac measu rement (mass/volume) - 01/09/20 02:10 Serum or plasma troponin i.cardiac measurement (mass/v olume) < ng/mL <0.028 Myoglobin, serum - 01/09/20 02:10 Myoglobin, serum 23.1 ng/mL 10.0-92.0 Serum or plasma amylase measurement (enz ymatic activity/volume) - 01/09/20 02:10 Serum or plasma amylase measurement (enzymatic activit y/volume) 36 U/L 25-125 Lipase - 01/09/20 02:10 Lipase 27 U/L 8-78 Serum or plasma thyrotropin measurement by detection limit <=0.05 miu/l (units/volume) - 01/09/20 02:10 Serum or plasma thyrotropin measurement by detection limit <=0.05 miu/l (units/volume) 0.86 u[iU]/mL 0.35-4.94 Serum or plasma lithium measurement (mol es/volume) - 01/09/20 02:10 BNP PT 31.8 pg/mL <100.0 Serum or plasma ethanol measurement (mas s/volume) - 01/09/20 02:10 Serum or plasma ethanol measurement (mass/volume) < mg/dL <10 Urine drug screening test - 01/09/20 02: 40 Urine phencyclidine detection by screening method NEGATIVE NEGATIVE Urine benzodiazepines detection by screening method NEGATIVE NEGATIVE Urine cocaine detection NEGATIVE NEGATI VE Urine amphetamines detection by screening method N EGATIVE NEGATIVE Urine methamphetamine detection by screening method NEGATIVE NEGATIVE Urine cannabinoids detection by screening method P OSITIVE NEGATIVE Urine opiates detection by screening method NEGATI VE NEGATIVE Urine barbiturates detection NEGATIVE N EGATIVE Screening urine tricyclic antidepressants detection NEGATIVE NEGATIVE Urine methadone detection by screening method NEGA TIVE NEGATIVE Urine oxycodone detection NEGATIVE NEGA TIVE Urine propoxyphene detection NEGATIVE N EGATIVE Serum or plasma troponin i.cardiac measu rement (mass/volume) - 01/09/20 04:52 Serum or plasma troponin i.cardiac measurement (mass/v olume) < ng/mL <0.028 Coronavirus SARS-CoV-2 SO 2019 - 0 08:26 Coronavirus Ab [Units/volume] in Serum Negative Negative Automated blood complete blood count (he mogram) panel - 02/16/20 07:42 Blood leukocytes automated count (number/volume) 10.6 10*3/uL 4.3-11.0 Blood erythrocytes automated count (number/volume) 5.50 10*6/uL 4.35-5.85 Venous blood hemoglobin measurement (mass/volume) 14.5 g/dL 13.3-17.7 Blood hematocrit (volume fraction) 42 % 40-54 Automated erythrocyte mean corpuscular volume 76 [ foz_us] 80-99 Automated erythrocyte mean corpuscular h emoglobin (mass per erythrocyte) 26 pg 25-34 Automated erythrocyte mean corpuscular h emoglobin concentration measurement (mass/volume) 35 g/dL 32-36 Automated erythrocyte distribution width ratio 16. 8 % 10.0- 14.5 Automated blood platelet count (count/volume) 290 10*3/uL 130-400 Automated blood platelet mean volume measurement 9.6 [foz_us] 7.4-10.4 PT panel in platelet poor plasma by coag ulation assay - 02/16/20 07:42 Prothrombin time (PT) in platelet poor plasma by coagu lation assay 23.6 s 12.2-14.7 INR in platelet poor plasma or blood by coagulation as say 2.0 0.8-1.4 Activated partial thromboplastin time (a PTT) in platelet poor plasma bycoagulation assay - 02/16/20 07:42 Activated partial thromboplastin time (a PTT) in platelet poor plasma bycoagulation assay 45 s 24-35 Comprehensive metabolic panel - 02/16/20 07:42 Serum or plasma sodium measurement (moles/volume) 140 mmol/L 135-145 Serum or plasma potassium measurement (moles/volume) 4.1 mmol/L 3.6-5.0 Serum or plasma chloride measurement (moles/volume) 107 mmol/L 98-107 Carbon dioxide 21 mmol/L 21-32 Serum or plasma anion gap determination (moles/volume) 12 mmol/L 5-14 Serum or plasma urea nitrogen measurement (mass/volume ) 12 mg/dL 7-18 Serum or plasma creatinine measurement (mass/volume) 0.83 mg/dL 0.60-1.30 Serum or plasma urea nitrogen/creatinine mass ratio 14 NRG Serum or plasma creatinine measurement w ith calculation of estimated glomerular filtration rate > NRG Serum or plasma glucose measurement (mass/volume) 101 mg/dL 70-105 Serum or plasma calcium measurement (mass/volume) 9.1 mg/dL 8.5-10.1 Serum or plasma total bilirubin measurement (mass/volu me) 0.2 mg/dL 0.1-1.0 Serum or plasma alkaline phosphatase rojelio surement (enzymatic activity/volume) 67 U/L 40-136 Serum or plasma aspartate aminotransfera se measurement (enzymatic activity/volume) 21 U/L 5-34 Serum or plasma alanine aminotransferase measurement (enzymatic activity/volume) 20 U/L 0-55 Serum or plasma protein measurement (mass/volume) 7.4 g/dL 6.4-8.2 Serum or plasma albumin measurement (mass/volume) 4.1 g/dL 3.2-4.5 CALCIUM CORRECTED 9.0 mg/dL 8.5-10.1 Methicillin resistant Staphylococcus aur eus (MRSA) screening culture - 02/16/20 07:42 Methicillin resistant Staphylococcus aureus (MRSA) scr eening culture NEG NRG Automated blood complete blood count (he mogram) panel - 02/17/20 02:57 Blood leukocytes automated count (number/volume) 11.9 10*3/uL 4.3-11.0 Blood erythrocytes automated count (number/volume) 5.24 10*6/uL 4.35-5.85 Venous blood hemoglobin measurement (mass/volume) 13.5 g/dL 13.3-17.7 Blood hematocrit (volume fraction) 40 % 40-54 Automated erythrocyte mean corpuscular volume 76 [ foz_us] 80-99 Automated erythrocyte mean corpuscular h emoglobin (mass per erythrocyte) 26 pg 25-34 Automated erythrocyte mean corpuscular h emoglobin concentration measurement (mass/volume) 34 g/dL 32-36 Automated erythrocyte distribution width ratio 16. 7 % 10.0- 14.5 Automated blood platelet count (count/volume) 268 10*3/uL 130-400 Automated blood platelet mean volume measurement 9.4 [foz_us] 7.4-10.4 Whole blood basic metabolic panel - 02/01 02/20 02:57 Serum or plasma sodium measurement (moles/volume) 138 mmol/L 135-145 Serum or plasma potassium measurement (moles/volume) 3.9 mmol/L 3.6-5.0 Serum or plasma chloride measurement (moles/volume) 107 mmol/L 98-107 Carbon dioxide 20 mmol/L 21-32 [...] NRG Serum or plasma glucose measurement (mass/volume) 132 mg/dL 70-105 Serum or plasma calcium measurement (mass/volume) 8.5 mg/dL 8.5-10.1 Encounters ACCT No. Visit Date/Time Discharge Status Pt. Type Provider Facility Loc./Unit Complaint [id number] 10/17/2016 17:07:00 Document Registration [id number] 02/16/2020 07:24:00 020 09:33:00 DIS Outpatient Yessi MEDEROS MD [facility] CATH TYPICAL ATRIAL FLUTTER [id number] 02/12/2020 06:58:00 23:59:59 CLS Outpatient GATITO BADILLO, JEREMIAS Perez [facility] LABNPT [id number] 01/09/2020 01:53:00 05:46:00 DIS Emergency DAVE DWYER DO [facility] ER CP [id number] 12/24/2019 11:10:00 23:59:59 CLS Outpatient GATIOT BADILLO, Yessi BURTON [facility] CARD RAPID HR [id number] 12/21/2019 22:10:00 19:30:00 DIS Inpatient DANA GOMEZ AMI Swann ia [facility] ICU RAPID HR [id number] 12/17/2019 23:15:00 02:47:00 DIS Emergency SADIQ KARINA Ventura [facility] ER FS CHEST PAIN [id number] 11/27/2019 07:12:00 14:55:00 DIS Outpatient GATITO BADILLO, Yessi BURTON [facility] CATH CHEST PAIN [id number] 11/17/2019 21:10:00 10:15:00 DIS Inpatient ANTONI BADILLO, MAJOR Portillo [facility] ICU CHEST PAIN,INTERMITTENT JUNCTIONAL RHYTHM,AORTIC A [id number] 08/16/2019 17:37:00 19:43:00 DIS Emergency DANISH PARKER MD [facility] ER FS NECK/SHOULDER PAIN [id number] 07/12/2019 16:25:00 20:01:00 DIS Emergency HINA JORGE MD [facility] ER FS JAW PAIN [id number] 05/24/2019 19:18:00 21:52:00 DIS Emergency HINA JORGE MD [facility] ER FS CHEST PAIN [id number] 04/30/2019 13:21:00 17:20:00 DIS Emergency MIKEL CASTLE MD [facility] ER CHEST PAIN [id number] 01/06/2019 15:30:00 019 23:59:59 CLS Preadmit Yessi MEDEROS MD [facility] CARD PALPITATION [id number] 10/31/2018 12:17:00 00:01:00 DIS Outpatient Yessi MEDEROS MD [facility] CARD PALPITATION [id number] 01/02/2019 12:28:00 019 14:05:00 DIS Emergency KERVIN MUNOZ MD [facility] ER FELT "POP" IN CHEST [id number] 01/02/2019 08:22:00 10:23:00 DIS Outpatient Yessi MEDEROS MD [facility] CATH PALPITATIONS,PSVT [id number] 01/01/2019 07:28:00 12:00:00 DIS Emergency KERVIN MUNOZ MD [facility] ER LT SHOULDER INJ [id number] 11/06/2018 05:23:00 06:35:00 DIS Emergency SANDRITA BUTLER MD [facility] ER FS MIGRAINE [id number] 10/06/2018 18:02:00 14:19:00 DIS Inpatient SADIE BADILLO FACC, SHEFALI MOSES CCD S [facility] ICU SVT,CHEST PAIN [id number] 11/09/2017 10:00:00 018 23:59:59 CLS Preadmit Yessi MEDEROS MD [facility] CARD CARDIAC MURMUR [id number] 06/22/2017 13:00:00 017 23:59:59 CLS Preadmit Yessi MEDEROS MD [facility] CARD AORTIC STENOSIS,CARDIAC MURMUR,OBESITY,TOBACCO USE [id number] 10/19/2016 10:02:00 017 23:59:59 CLS Outpatient RONY BADILLO, MAGUI Bueno [facility] CARD HEART MURMUR,AORTIC [id number] 10/22/2019 13:00:00 10/22/2019 23:59:5 9 [facility] Outpatient YESSENIA HARDING [facility] [id number] 12/31/2019 13:31:00 Document Registration [id number] 11/20/2018 13:15:00 Document Registration
[2020-02-19] MEDS ORDERED: KETOROLAC 30 MG/ML VIAL IVP ONE (08:15)
[2020-02-19 08:29] LABS: BASOPHILS % (AUTO) 1 % (0-10); EOSINOPHILS % (AUTO) 2 % (0-10); HEMATOCRIT 40 % (40-54); HEMOGLOBIN 13.2 G/DL (13.3-17.7); LYMPHOCYTES % (AUTO) 30 % (12-44); MEAN CORPUSCULAR HEMOGLOBIN 26 PG (25-34); MEAN CORPUSCULAR HGB CONC 33 G/DL (32-36); MEAN CORPUSCULAR VOLUME 78 FL (80-99); MEAN PLATELET VOLUME 9.4 FL (7.4-10.4); MONOCYTES % (AUTO) 7 % (0-12); NEUTROPHILS % (AUTO) 59 % (42-75); PLATELET COUNT 243 10^3/uL (130-400); RED CELL DISTRIBUTION WIDTH 16.7 % (10.0-14.5); WHITE BLOOD COUNT 11.6 10^3/uL (4.3-11.0)
--- NOTE | 2020-02-19 08:29 | ED Hip Pain/Injury ---
General Chief Complaint: Hip/Pelvic Problems Stated Complaint: HIP PAIN Nursing Triage Note: Patient reports he had a cardiac ablation for SVT 2-3 days ago, had some groin pain last night and took an oxycodone. Patient states when the oxycodone wore off, he began having right hip pain. Patient denies any injury, states hip feels "out of place" and is worse with rotation and movement. History of Present Illness Date Seen by Provider: Feb 19, 2020 Time Seen by Provider: 08:21 Initial Comments 34-year-old male seen several times over the last few years for various c/o's headache chest pain and jaw pain has quite a significant cardiac history in the form of valvular disease and tachyarrhythmias my understanding is he has a history of episodic narrow complex tachycardias and was ablated years ago then within the last 3 months he had an episode that apparently was felt to be atrial flutter at 2-1 requiring emergent cardioversion cardiac cath on 11-26 showed no coronary artery disease but severe aortic stenosis and an ascending aortic aneurysm has since undergone valve replacement and is on Coumadin on he underwent a second ablation procedure they apparently accessed vessels bilaterally in the groins he's had some hematoma on the left overnight he developed what seemed to be right hip pain, worse with weight bearing on the right leg or moving his right hip he feels this is completely unrelated to the vascular access in both groins denies any fall or injury or activity that might have led to this has not had hip pain before or any problems with his back He has a little bit of extreme lower back sacral pain has mainly pain in the lateral right hip and nothing that goes down the leg distally everything is normal still, with this, drove himself here to the ER . Allergies and Home Medications Allergies Coded Allergies: hydrocodone (Verified Allergy, Unknown, itching, 02/19/20) Home Medications Acetaminophen 325 Mg Tablet, 1,000 MG PO Q6H PRN for PAIN-MILD (1-4) Prescribed by: QUIRINO COFFMAN on 02/16/20 1436 Diltiazem HCl 120 Mg Cap.er.24h, 120 MG PO DAILY Prescribed by: QUIRINO COFFMAN on 02/16/20 1436 Lorazepam 1 Mg Tablet, 1 MG PO PRN PRN for ANXIETY, (Reported) Metoprolol Succinate 200 Mg Tab.er.24h, 200 MG PO 1999, (Reported) Oxycodone HCl/Acetaminophen 1 Each Tablet, 1 EACH PO DAILY PRN for PAIN-SEVERE Prescribed by: QUIRINO COFFMAN on 02/16/20 1436 Oxycodone HCl/Acetaminophen 1 Each Tablet, 1 EACH PO Q4H PRN for PAIN-MODERATE Prescribed by: HINA JORGE on 02/19/20 1030 Prednisone 20 Mg Tab, 40 MG PO DAILY Prescribed by: HINA JORGE on 02/19/20 1030 Warfarin Sodium 10 Mg Tablet, 10 MG PO [id number], (Reported) Warfarin Sodium 10 Mg Tablet, 5 MG PO MoFr, (Reported) Patient Home Medication List Home Medication List Reviewed: Yes Review of Systems Constitutional: no symptoms reported EENTM: no symptoms reported Respiratory: no symptoms reported Cardiovascular: no symptoms reported Gastrointestinal: no symptoms reported Genitourinary: no symptoms reported Musculoskeletal: other (right hip pain) Skin: no symptoms reported Psychiatric/Neurological: No Symptoms Reported Past Jileqfa-Ndvmbj-Nyxymy Hx Patient Social History Alcohol Use: Denies Use Recreational Drug Use: No Drug of Choice: THC Smoking Status: Current Everyday Smoker Type Used: Cigars 2nd Hand Smoke Exposure: No Recent Foreign Travel: No Contact w/Someone Who Travel: No Recent Infectious Disease Expo: No Recent Hopitalizations: Yes Physical Abuse: No Sexual Abuse: No Mistreated: No Fear: No Immunizations Up To Date Tetanus Booster (TDap): Less than 5yrs Date of Influenza Vaccine: Jun 03, 2019 Seasonal Allergies Seasonal Allergies: No Past Medical History Surgeries: Yes (ablation-svt/a-fib, LOOP RECORDER 01/02/19,bicuspid valve replacement) Cardiac, Tonsillectomy, Valve Replacement Respiratory: No Currently Using CPAP: No Currently Using BIPAP: No Cardiac: Yes (ASCENDING THORACIC AORTIC ANEURYSM;BICUSPID AORTIC VALVE;AFIB/RVR;V-TACH ) Aneurysm, Atrial Fibrillation, Heart Murmur, High Cholesterol, Irregular Heartbeat, Palpitations, Valvular Heart Disease Neurological: Yes Headaches /Migraines Genitourinary: No Gastrointestinal: No Musculoskeletal: Yes Chronic Back Pain Endocrine: No HEENT: No Cancer: No Psychosocial: No Integumentary: No Blood Disorders: No Adverse Reaction/Blood Tranf: No Family Medical History Hypertension PSH: -TONSILLECTOMY -MULTIPLE CARDIOVERSIONS FOR ATRIAL FIBRILLATION/RVR -CARDIAC ABLATIONS FOR ATRIAL FIBRILLATION/RVR -SVT. -LOOP RECORDER PLACEMENT 01/02/2019 -CARDIAC CATHS--LAST ONE HERE 11/27/19, PRIOR TO VALVE REPLACEMENT--NO INTERVENTION, NORMAL CORONARIES, SEVERE AORTIC VALVE STENOSIS AND ASCENDING THORACIC AORTIC ANEURYSM -12/01/19--MECHANICAL AORTIC VALVE REPLACEMENT AT [facility] IN [place]. Physical Exam Vital Signs Vital Signs - First Documented 02/19/20 07:59 Temp 36.7 Pulse 83 Resp 18 B/P (MAP) 130/88 (102) Pulse Ox 96 O2 Delivery Room Air Capillary Refill : Less Than 3 Seconds Height, Weight, BMI Height: 5'11.00" Weight: 308lbs. 0.0oz. 139.385928or; 44.00 BMI Method:Stated General Appearance: Mild Distress HEENT: PERRL/EOMI, Normal ENT Inspection, Pharynx Normal Neck: Non Tender, Supple Cardiovascular: Regular Rate, Rhythm Respiratory: Lungs Clear Gastrointestinal: Non Tender, Soft Genital/Rectal: Other (evidence of recent vascular access in both groins he has some hematoma on the left patient has no symptoms in these areas) Back: Normal Inspection, No Vertebral Tenderness Extremity: Other (patient has the ability to lift his right leg off the cart he tolerates straight leg raising okay but when the leg is let back down this exacerbates pain range of motion at the hip exacerbates pain distal neurovascular intact knee and lower leg exam normal) Progress/Results/Core Measures Results/Orders Lab Results Laboratory Tests Test 02/19/20 08:20 Range/Units White Blood Count 11.6 H 4.3-11.0 10^3/uL Red Blood Count 5.10 4.35-5.85 10^6/uL Hemoglobin 13.2 L 13.3-17.7 G/DL Hematocrit 40 40-54 % Mean Corpuscular Volume 78 L 80-99 FL Mean Corpuscular Hemoglobin 26 25-34 PG Mean Corpuscular Hemoglobin Concent 33 32-36 G/DL Red Cell Distribution Width 16.7 H 10.0-14.5 % Platelet Count 243 130-400 10^3/uL Mean Platelet Volume 9.4 7.4-10.4 FL Neutrophils (%) (Auto) 59 42-75 % Lymphocytes (%) (Auto) 30 12-44 % Monocytes (%) (Auto) 7 0-12 % Eosinophils (%) (Auto) 2 0-10 % Basophils (%) (Auto) 1 0-10 % Neutrophils # (Auto) 6.9 1.8-7.8 X 10^3 Lymphocytes # (Auto) 3.5 1.0-4.0 X 10^3 Monocytes # (Auto) 0.8 0.0-1.0 X 10^3 Eosinophils # (Auto) 0.2 0.0-0.3 10^3/uL Basophils # (Auto) 0.1 0.0-0.1 10^3/uL Prothrombin Time 24.9 H 12.2-14.7 SEC INR Comment 2.2 H 0.8-1.4 Sodium Level 140 135-145 MMOL/L Potassium Level 4.1 3.6-5.0 MMOL/L Chloride Level 102 98-107 MMOL/L Carbon Dioxide Level 26 21-32 MMOL/L Anion Gap 12 5-14 MMOL/L Blood Urea Nitrogen 14 7-18 MG/DL Creatinine 0.79 0.60-1.30 MG/DL Estimat Glomerular Filtration Rate > 60 BUN/Creatinine Ratio 18 Glucose Level 100 70-105 MG/DL Calcium Level 8.8 8.5-10.1 MG/DL Corrected Calcium 9.0 8.5-10.1 MG/DL Total Bilirubin < 0.2 0.1-1.0 MG/DL Aspartate Amino Transf (AST/SGOT) 16 5-34 U/L Alanine Aminotransferase (ALT/SGPT) 17 0-55 U/L Alkaline Phosphatase 63 40-136 U/L Total Protein 6.3 L 6.4-8.2 GM/DL Albumin 3.7 3.2-4.5 GM/DL My Orders Orders - HINA JORGE MD Iv Heplock-Insert (Order) (02/19/20 08:04) Ketorolac Injection (Toradol Injection) (02/19/20 08:15) Cbc With Automated Diff (02/19/20 08:04) Protime With Inr (02/19/20 08:04) Comprehensive Metabolic Panel (02/19/20 08:04) Hip 2-3 View Right (02/19/20 08:04) Ct Lumbar Spine Wo (02/19/20 09:01) Ct Abd/Pelv W (Appendicitis) (02/19/20 09:01) Fentanyl Injection (Sublimaze Injection (02/19/20 09:15) Iohexol Injection (Omnipaque 350 Mg/Ml 1 (02/19/20 09:30) Received Contrast (Hold Metformin- Contr (02/19/20 09:30) Sodium Chloride Flush (Catheter Flush Sy (02/19/20 09:30) Ns (Ivpb) (Sodium Chloride 0.9% Ivpb Bag (02/19/20 09:30) Medications Given in ED Current Medications Medications Dose Ordered Sig/Helder Route Start Time Stop Time Status Last Admin Dose Admin Fentanyl Citrate 75 mcg ONCE ONCE IVP 02/19/20 09:15 02/19/20 09:16 DC 02/19/20 09:14 75 MCG Iohexol 100 ml ONCE ONCE IV 02/19/20 09:30 02/19/20 09:31 DC 02/19/20 09:45 100 ML Ketorolac Tromethamine 30 mg ONCE ONCE IVP 02/19/20 08:15 02/19/20 08:16 DC 02/19/20 08:31 30 MG Sodium Chloride 100 ml ONCE ONCE IV 02/19/20 09:30 02/19/20 09:31 DC 02/19/20 09:45 80 ML Vital Signs/I&O 02/19/20 07:59 Temp 36.7 Pulse 83 Resp 18 B/P (MAP) 130/88 (102) Pulse Ox 96 O2 Delivery Room Air Blood Pressure Mean: 102 Progress Progress Note : Progress Note Hemoglobin 13.2 white blood count 11,600 INR - 2.2 CMP - normal creat 0.79 Right hip x-ray appears normal pt states he got only slight relief from toradol will CT lumbar spine and abd pel CT L-spine shows evidence of L5-S1 degenerative disc disease no acute findings or more serious pathology noted CT abdomen and pelvis - no acute abnormality or renal appendix small bilateral fat-containing inguinal hernias patient seems to have right hip pain. Possibly bursitis it's conceivable that this is sciatica/lumbar radiculopathy Departure Impression Primary Impression: Hip pain Qualified Codes: M25.551 - Pain in right hip Disposition: 01 HOME, SELF-CARE Condition: Improved Departure-Patient Inst. Decision time for Depature: 10:28 Referrals: [facility]JENNIFER (PCP) Primary Care Physician YESSENIA HARDING APRN (Family) Primary Care Physician Patient Instructions: Hip Bursitis (DC) Add. Discharge Instructions: pt advised not to drive as his right hip pain would interfere with ability to control vehicle also has had pain meds All discharge instructions reviewed with patient and/or family. Voiced understanding. Scripts Oxycodone HCl/Acetaminophen (Oxycodone-Acetaminophen 5-325) 1 Each Tablet 1 EACH PO Q4H PRN for PAIN-MODERATE MDD 6 for 3 Days, #16 TAB 0 Refills Prov: HINA JORGE MD 02/19/20 Prednisone (Prednisone) 20 Mg Tab 40 MG PO DAILY, #10 TAB 0 Refills Prov: HINA JORGE MD 02/19/20 Oxycodone HCl/Acetaminophen (Oxycodone-Acetaminophen 5-325) 1 Each Tablet 1 EACH PO Q4H PRN for PAIN-MODERATE MDD 6 for 3 Days, #16 TAB 0 Refills Prov: HINA JORGE MD 02/19/20 Prednisone (Prednisone) 20 Mg Tab 40 MG PO DAILY, #10 TAB 0 Refills Prov: HINA JORGE MD 02/19/20 HINA JORGE MD Feb 19, 2020 08:29
[2020-02-19 08:30] LABS: BASOPHILS # (AUTO) 0.1 10^3/uL (0.0-0.1); EOSINOPHILS # (AUTO) 0.2 10^3/uL (0.0-0.3); LYMPHOCYTES # (AUTO) 3.5 X 10^3 (1.0-4.0); MONOCYTES # (AUTO) 0.8 X 10^3 (0.0-1.0); NEUTROPHILS # (AUTO) 6.9 X 10^3 (1.8-7.8)
[2020-02-19 08:55] LABS: ALANINE AMINOTRANSFERASE 17 U/L (0-55); ALKALINE PHOSPHATASE 63 U/L (40-136); BILIRUBIN,TOTAL < 0.2 MG/DL (0.1-1.0); BUN/CREATININE RATIO 18; CALCIUM 8.8 MG/DL (8.5-10.1); CARBON DIOXIDE 26 MMOL/L (21-32); CHLORIDE 102 MMOL/L (98-107); CREATININE SERUM 0.79 MG/DL (0.60-1.30); GFR ESTIMATED > 60; GLUCOSE 100 MG/DL (70-105); POTASSIUM 4.1 MMOL/L (3.6-5.0); SODIUM 140 MMOL/L (135-145); TOTAL PROTEIN 6.3 GM/DL (6.4-8.2)
[2020-02-19 08:56] LABS: ALBUMIN 3.7 GM/DL (3.2-4.5)
[2020-02-19 09:01] LABS: INR 2.2 (0.8-1.4); PROTHROMBIN TIME PATIENT 24.9 SEC (12.2-14.7)
--- NOTE | 2020-02-19 09:11 | Diagnostic Imaging Report ---
HISTORY: Severe right thigh and hip pain. COMPARISON: None TECHNIQUE: 2 views of the right hip FINDINGS: No definite acute fracture or dislocation is seen in the right hip. Tiny calcifications adjacent to the superior acetabulum appear chronic, stable since November 2019, may represent a small os acetabulum. The femoral head is well-seated in the acetabulum. Joint spaces are preserved. IMPRESSION: 1. No acute osseous abnormality is seen in the right hip. Dictated by: Dictated on workstation # [id number]
[2020-02-19] MEDS ORDERED: fentaNYL INJECTION 100 MCG/2 ML AMP IVP ONE (09:15)
[2020-02-19] MEDS ORDERED: HOLD METFORMIN - RECEIVED CONTRAST 20 ML VIAL IV SCH (09:30)
[2020-02-19] MEDS ORDERED: CATHETER FLUSH 10 ML SYR IV PRN (09:30)
[2020-02-19] MEDS ORDERED: IOHEXOL 350 MG/ML 100 ML (OMNIPAQUE 350) VIAL IV ONE (09:30)
[2020-02-19] MEDS ORDERED: NS 100 ML (IVPB) BAG IV ONE (09:30)
--- NOTE | 2020-02-19 10:05 | Diagnostic Imaging Report ---
PROCEDURE: CT lumbar spine without contrast. TECHNIQUE: Multiple contiguous axial images were obtained through the lumbar spine without the use of intravenous contrast. Sagittal and coronal reformations were then performed. Auto Exposure Controls were utilized during the CT exam to meet ALARA standards for radiation dose reduction. INDICATION: Right hip pain. Curvature and alignment of the lumbar spine is normal. Vertebral body heights are maintained. Disc spaces are well-maintained apart from some disc space narrowing at L5-S1 compatible with degenerative disc disease. No fractures are identified. Paraspinous tissues are unremarkable. IMPRESSION: L5-S1 degenerative disc disease. No acute bony abnormality is detected. Dictated by: Dictated on workstation # [id number]
--- NOTE | 2020-02-19 10:16 | Diagnostic Imaging Report ---
INDICATION: Right-sided pelvic pain. TECHNIQUE: Multiple contiguous axial images were obtained through the abdomen and pelvis after the administration of intravenous contrast. All CT scans use one or more of the following dose optimizing techniques: automated exposure control, MA and/or KvP adjustment based on a patient size and exam type, or iterative reconstruction. Comparison made with 11/17/2019. FINDINGS: Visualized portions of the lung bases show some mild dependent atelectatic changes in the left base. Right lung bases clear. There is no pleural fluid or free intraperitoneal air. Patient has had aortic valve replacement. The liver shows no focal lesion. Gallbladder appears unremarkable. Spleen, adrenals, and pancreas appear normal. Kidneys bilaterally show no radiopaque calculi or hydronephrosis. There is no retroperitoneal mass or adenopathy. Visualized bowel loops show no sign of bowel wall thickening or obstruction. There is no pelvic mass or free fluid. There are small bilateral fat-containing inguinal hernias. The appendix appears unremarkable. IMPRESSION: No acute abnormality visualized in the abdomen or pelvis. Mild dependent atelectatic changes in the left lung base. Patient has undergone aortic valve replacement compared to the previous study. There is no abdominal mass or abnormal fluid question. Appendix appears normal. There are small bilateral fat-containing inguinal hernias. Dictated by: Dictated on workstation # [id number]
[2020-02-19] MEDS ORDERED: OXYC-471 PO ×2 (10:30→10:33)
[2020-02-19] MEDS ORDERED: PRD20T PO ×2 (10:30→10:33)
[2020-02-19 10:45] VITALS: BP 111/58
== END 2020-02-19 10:45 | disposition home or self-care (01) ==
LOC: EDUNIT# 07:42 → ER FS 07:43
DX: M25.551 Pain in right hip (principal); I48.91 Unspecified atrial fibrillation; M54.9 Dorsalgia, unspecified; G89.29 Other chronic pain; F17.290 Nicotine dependence, other tobacco product, uncomplicated; Z95.2 Presence of prosthetic heart valve; Z88.5 Allergy status to narcotic agent; Z79.01 Long term (current) use of anticoagulants; Z82.49 Family history of ischemic heart disease and other diseases of the circulatory system
CPT/HCPCS: 36415; 72131; 73502; 74177; 80053; 85025; 85610

== ENCOUNTER 2020-05-15 14:04 | Emergency (ER) | payer BC ==
[~2020-05-15] VITALS: Ht 180 cm; Wt 155.0 kg
[~2020-05-15 14:04] MED LIST changes: +PRD20T PO; -WARF10TA44 PO; -WARF1TAB82; +WRF10T PO; +WRF1T
[2020-05-15 14:10] VITALS: BP 133/74
--- NOTE | 2020-05-15 14:19 | ED Cough/URI ---
General Chief Complaint: Cough/Cold/Flu Symptoms Stated Complaint: COUGHING UP BLOOD Nursing Triage Note: PT FEELS CONGESTED AND HAS BEEN COUGHING. HE COUGHED UP SOME BLOOD THIS AM IN THE SHOWER. Sepsis Screen: No Definite Risk Source: patient Exam Limitations: no limitations History of Present Illness Date Seen by Provider: May 15, 2020 Time Seen by Provider: 14:16 Initial Comments 34-year-old male presents with 2 days of cough, slightly productive and this morning had some blood-tinged sputum. No fever or chills, no shortness of air, but does feel "congested". Past medical history significant for heart valve replacement, cardiac ablation and on warfarin. Allergies and Home Medications Allergies Coded Allergies: hydrocodone (Verified Allergy, Unknown, itching, 02/19/20) Home Medications Acetaminophen 325 Mg Tablet, 1,000 MG PO Q6H PRN for PAIN-MILD (1-4) Prescribed by: QUIRINO COFFMAN on 02/16/20 1436 Diltiazem HCl 120 Mg Cap.er.24h, 120 MG PO DAILY Prescribed by: QUIRINO COFFMAN on 02/16/20 1436 Guaifenesin/Dextromethorphan 10 Ml Liquid, 10 ML PO Q6H Prescribed by: HUANG MORA on 05/15/20 1449 Lorazepam 1 Mg Tablet, 1 MG PO PRN PRN for ANXIETY, (Reported) Metoprolol Succinate 200 Mg Tab.er.24h, 200 MG PO 2000, (Reported) Oxycodone HCl/Acetaminophen 1 Each Tablet, 1 EACH PO DAILY PRN for PAIN-SEVERE Prescribed by: QUIRINO COFFMAN on 02/16/20 1436 Oxycodone HCl/Acetaminophen 1 Each Tablet, 1 EACH PO Q4H PRN for PAIN-MODERATE Prescribed by: HINA JORGE on 02/19/20 1030 Oxycodone HCl/Acetaminophen 1 Each Tablet, 1 EACH PO Q4H PRN for PAIN-MODERATE Prescribed by: HINA JORGE on 02/19/20 1033 Prednisone 20 Mg Tab, 40 MG PO DAILY Prescribed by: HINA JORGE on 02/19/20 1030 Prednisone 20 Mg Tab, 40 MG PO DAILY Prescribed by: HINA JORGE on 02/19/20 1033 Warfarin Sodium 10 Mg Tablet, 10 MG PO [id number], (Reported) Warfarin Sodium 10 Mg Tablet, 5 MG PO MoFr, (Reported) Patient Home Medication List Home Medication List Reviewed: Yes Review of Systems Review of Systems Constitutional: No dizziness, No fever, No malaise, No weakness EENTM: no symptoms reported Respiratory: cough, hemoptysis (blood tinged sputum, not cm hemoptysis), phlegm; No short of breath Cardiovascular: No chest pain, No edema, No palpitations Gastrointestinal: No abdominal pain, No nausea, No vomiting Musculoskeletal: No back pain, No joint pain Past Srgrpaz-Fvobxe-Nrqfar Hx Past Med/Social Hx: Reviewed Nursing Past Med/Soc Hx Patient Social History Alcohol Use: Denies Use Recreational Drug Use: Yes Drug of Choice: THC Type Used: Cigars 2nd Hand Smoke Exposure: No Recent Foreign Travel: No Contact w/Someone Who Travel: No Recent Infectious Disease Expo: No Recent Hopitalizations: Yes Physical Abuse: No Sexual Abuse: No Mistreated: No Fear: No Immunizations Up To Date Tetanus Booster (TDap): Less than 5yrs Date of Influenza Vaccine: Jun 03, 2019 Seasonal Allergies Seasonal Allergies: No Past Medical History Surgeries: Yes (ablation-svt/a-fib, LOOP RECORDER 01/02/19,bicuspid valve replacement) Cardiac, Tonsillectomy, Valve Replacement Respiratory: No Currently Using CPAP: No Currently Using BIPAP: No Cardiac: Yes (ASCENDING THORACIC AORTIC ANEURYSM;BICUSPID AORTIC VALVE;AFIB/RVR;V-TACH ) Aneurysm, Atrial Fibrillation, Heart Murmur, High Cholesterol, Irregular Heartbeat, Palpitations, Valvular Heart Disease Neurological: Yes Headaches /Migraines Genitourinary: No Gastrointestinal: No Musculoskeletal: Yes Chronic Back Pain Endocrine: No HEENT: No Cancer: No Psychosocial: No Integumentary: No Blood Disorders: No Adverse Reaction/Blood Tranf: No Family Medical History Hypertension PSH: -TONSILLECTOMY -MULTIPLE CARDIOVERSIONS FOR ATRIAL FIBRILLATION/RVR -CARDIAC ABLATIONS FOR ATRIAL FIBRILLATION/RVR -SVT. -LOOP RECORDER PLACEMENT 01/02/2019 -CARDIAC CATHS--LAST ONE HERE 11/27/19, PRIOR TO VALVE REPLACEMENT--NO INTERVENTION, NORMAL CORONARIES, SEVERE AORTIC VALVE STENOSIS AND ASCENDING THORACIC AORTIC ANEURYSM -12/01/19--MECHANICAL AORTIC VALVE REPLACEMENT AT [facility]. Physical Exam Vital Signs - First Documented 05/15/20 14:10 Temp 36.5 Pulse 69 Resp 18 B/P (MAP) 133/74 (93) Pulse Ox 96 O2 Delivery Room Air Capillary Refill : Less Than 3 Seconds Height: 5'11.00" Weight: 308lbs. 0.0oz. 139.765824tn; 47.00 BMI Method:Stated General Appearance: WD/WN, no apparent distress HEENT: PERRL/EOMI, normal ENT inspection Neck: non-tender, full range of motion Respiratory: chest non-tender, lungs clear, normal breath sounds, no respiratory distress, no accessory muscle use Cardiovascular: regular rate, rhythm, no edema Neurologic/Psychiatric: normal mood/affect, oriented x 3 Skin: normal color, warm/dry Progress/Results/Core Measures Suspected Sepsis Recent Fever Within 48 Hours: No Infection Criteria Present: None New/Unexplained Altered Menta: No Sepsis Screen: No Definite Risk SIRS Temperature: Pulse: 69 Respiratory Rate: 18 Blood Pressure 133 /74 Mean: 93 Results/Orders My Orders Orders - HUANG MORA DO Chest Pa/Lat (2 View) (05/15/20 14:15) Vital Signs/I&O 05/15/20 05/15/20 14:10 14:11 Temp 36.5 Pulse 69 Resp 18 B/P (MAP) 133/74 (93) Pulse Ox 96 O2 Delivery Room Air Room Air Capillary Refill : Less Than 3 Seconds Blood Pressure Mean: 93 Diagnostic Imaging Comments Date of Exam:05/15/20 CHEST PA/LAT (2 VIEW) INDICATION: Coughing up blood and wheezing. Time of exam 2:29 PM Comparison is made with prior chest from 01/09/2020. Changes of median sternotomy are noted. Cardiac monitoring device overlies the heart. The lungs are clear. Pulmonary vascularity is normal. No infiltrate, effusion or pneumothorax is detected. IMPRESSION: No acute cardiopulmonary process is detected. Dictated on workstation # [id number] Dict: 05/15/20 1441 Trans: 05/15/20 1445 [facility] [id number] Interpreted by: BENEDICTO BRADSHAW MD Electronically signed by: Departure Impression Primary Impression: Bronchitis Disposition: 01 HOME, SELF-CARE Condition: Stable Departure-Patient Inst. Decision time for Depature: 14:47 Referrals: [facility] [place]) Primary Care Physician YESSENIA HARDING APRN (Family) Primary Care Physician Patient Instructions: Acute Bronchitis, Adult (DC) Add. Discharge Instructions: Follow up with your Primary Care doctor in 1 week, sooner if worsening problems or other concerns All discharge instructions reviewed with patient and/or family. Voiced understanding. Scripts Guaifenesin/Dextromethorphan (Guaifenesin-Dm 200-20 mg/10 ml) 10 Ml Liquid 10 ML PO Q6H for Cough, #1 VIAL Prov: HUANG MORA DO 05/15/20 HUANG MORA DO May 15, 2020 14:19
--- NOTE | 2020-05-15 14:45 | Diagnostic Imaging Report ---
INDICATION: Coughing up blood and wheezing. Time of exam 2:29 PM Comparison is made with prior chest from 01/09/2020. Changes of median sternotomy are noted. Cardiac monitoring device overlies the heart. The lungs are clear. Pulmonary vascularity is normal. No infiltrate, effusion or pneumothorax is detected. IMPRESSION: No acute cardiopulmonary process is detected. Dictated by: Dictated on workstation # [id number]
[2020-05-15] MEDS ORDERED: GUAI10LI12 PO (14:49)
== END 2020-05-15 14:55 | disposition home or self-care (01) ==
LOC: EDUNIT# 14:04 → ER FS 14:06
DX: J40 Bronchitis, not specified as acute or chronic (principal); I48.91 Unspecified atrial fibrillation; G43.909 Migraine, unspecified, not intractable, without status migrainosus; G89.29 Other chronic pain; M54.9 Dorsalgia, unspecified; Z79.891 Long term (current) use of opiate analgesic; Z82.49 Family history of ischemic heart disease and other diseases of the circulatory system; Z95.4 Presence of other heart-valve replacement; Z79.01 Long term (current) use of anticoagulants; Z88.5 Allergy status to narcotic agent; Z79.52 Long term (current) use of systemic steroids
CPT/HCPCS: 71046; 99282

== ENCOUNTER 2020-11-29 13:39 | Emergency (ER) | payer BC ==
[~2020-11-29 13:39] MED LIST changes: +ACET-2267 PO; +AMOX-355 PO; -CLIN300C11 PO; +CLIN300C12 PO; +DILT-27 PO; +GUAI10LI12 PO; +NICO-685 TD; +OXC5T PO; -OXYC-471 PO; +OXYC1TAB11 PO; +OXYC1TAB16 PO; -OXYC5TAB96 PO; +TRAM50TA3 PO
[2020-11-29] MEDS ORDERED: ASPIRIN 81 MG CHEW (CHILDREN'S ASA) PO ONE (14:00)
--- NOTE | 2020-11-29 14:00 | ED Chest Pain ---
General Chief Complaint: Chest Pain Stated Complaint: CHEST PAIN Nursing Triage Note: Intermittent chest pain x 2 months. Had pain upon awakening this morning rated at 8/10. Pain is better at this time. Has extensive cardiac history and sees Dr Will in [place] for cardiology. Has had two ablations for tachy rhythm, open heart surgery for aortic valve replacement. Was told at his last appointment that he has an aortic aneurysm. Nursing Sepsis Screen: No Definite Risk Source: patient Exam Limitations: no limitations History of Present Illness Date Seen by Provider: Nov 29, 2020 Time Seen by Provider: 13:37 Initial Comments Patient presents ER by private conveyance from home with chief complaint he is for the past couple months been having some fleeting couple seconds long sharp, stabbing like a drip box tender in his chest and left upper quadrant that does not radiate. He rates it about 8 out of 10 when it happens and goes away after it takes his breath away. He has a smoker's cough and is down from 2 packs a day to 1/4 pack of cigarettes per day. 1 year ago he had his aortic valve replaced at [facility]. Dr. Li was the cardiothoracic surgeon, Dr. Jacob was the cardio logist and Dr. Harding is his local primary care. He is not having any shortness of breath, chest pain or nausea now. No sweats fever chills or sick contacts. No palpitations or near syncope. The patient is on warfarin. Allergies and Home Medications Allergies Coded Allergies: hydrocodone (Verified Allergy, Unknown, itching, 02/19/20) Home Medications Amoxicillin/Potassium Clav 1 Each Tablet, 1 EACH PO Q8H Prescribed by: JACOBO DAS on 07/17/20 1145 Diltiazem HCl 120 Mg Cap.er.24h, 120 MG PO HS, (Reported) Metoprolol Succinate 200 Mg Tab.er.24h, 200 MG PO 2000, (Reported) Nicotine 1 Each Patch.td24, 1 PATCH TD DAILY, (Reported) Oxycodone HCl/Acetaminophen 1 Each Tablet, 1 EACH PO Q4H PRN for PAIN-MODERATE (5-7) Prescribed by: JACOBO DAS on 07/17/20 1145 Warfarin Sodium 10 Mg Tablet, 5 MG PO MON,FRI, (Reported) Warfarin Sodium 10 Mg Tablet, 10 MG PO ,,,,SAT, (Reported) Patient Home Medication List Home Medication List Reviewed: Yes Review of Systems Review of Systems Constitutional: No chills, No diaphoresis EENTM: No Blurred Vision, No Double Vision Respiratory: Denies Cough, Denies Shortness of Air Cardiovascular: See HPI, Chest Pain; Denies Lightheadedness Gastrointestinal: Denies Constipated, Denies Diarrhea, Denies Difficulty Swallowing, Denies Nausea Genitourinary: Denies Burning, Denies Discharge Musculoskeletal: No back pain, No joint pain Skin: No pruritus, No rash Psychiatric/Neurological: Denies Headache, Denies Numbness All Other Systems Reviewed Negative Unless Noted: Yes Past Sasujdm-Uuhscn-Amueoz Hx Patient Social History Alcohol Use: Denies Use Drug of Choice: THC, MARIJUANA Smoking Status: Current Everyday Smoker Type Used: Cigars, Cigarettes 2nd Hand Smoke Exposure: No Recent Infectious Disease Expo: No Recent Hopitalizations: No Immunizations Up To Date Tetanus Booster (TDap): Less than 5yrs Date of Influenza Vaccine: Jun 03, 2019 Seasonal Allergies Seasonal Allergies: No Past Medical History Surgeries: Yes (ablation-svt/a-fib, LOOP RECORDER 01/02/19,bicuspid valve replacement) Cardiac, Tonsillectomy, Valve Replacement Respiratory: No Currently Using CPAP: No Currently Using BIPAP: No Cardiac: Yes (ASCENDING THORACIC AORTIC ANEURYSM;BICUSPID AORTIC VALVE;AFIB/RVR;V-TACH ) Aneurysm, Atrial Fibrillation, Heart Murmur, High Cholesterol, Irregular Heartbeat, Palpitations, Valvular Heart Disease Neurological: Yes Headaches /Migraines Genitourinary: No Gastrointestinal: No Musculoskeletal: Yes Chronic Back Pain Endocrine: No HEENT: No Cancer: No Psychosocial: No Integumentary: No Blood Disorders: No Adverse Reaction/Blood Tranf: No Family Medical History Hypertension Physical Exam Vital Signs Vital Signs - First Documented 11/29/20 13:42 Temp 36.2 Pulse 85 Resp 16 B/P (MAP) 138/92 (107) Pulse Ox 97 Capillary Refill : Less Than 3 Seconds Height, Weight, BMI Height: 5'11.00" Weight: 308lbs. 0.0oz. 139.168059xx; 42.57 BMI Method:Stated General Appearance: No Apparent Distress, Obese HEENT: PERRL/EOMI, Pharynx Normal, Moist Mucous Membranes Neck: Full Range of Motion, Normal Inspection, Supple Respiratory: Chest Non Tender, Lungs Clear, Normal Breath Sounds, No Accessory Muscle Use, No Respiratory Distress Cardiovascular: Regular Rate, Rhythm, No Edema, Normal Peripheral Pulses, Other (Mechanical valve auscultated) Gastrointestinal: Non Tender, Soft Extremity: Normal Capillary Refill, Normal Inspection, No Pedal Edema Neurologic/Psychiatric: Alert, Oriented x3 Skin: Normal Color, Warm/Dry Progress/Results/Core Measures Results/Orders Lab Results Laboratory Tests Test 11/29/20 13:50 Range/Units White Blood Count 7.9 4.3-11.0 10^3/uL Red Blood Count 5.29 4.35-5.85 10^6/uL Hemoglobin 15.3 13.3-17.7 G/DL Hematocrit 43 40-54 % Mean Corpuscular Volume 82 80-99 FL Mean Corpuscular Hemoglobin 29 25-34 PG Mean Corpuscular Hemoglobin Concent 35 32-36 G/DL Red Cell Distribution Width 13.1 10.0-14.5 % Platelet Count 211 130-400 10^3/uL Mean Platelet Volume 9.7 7.4-10.4 FL Immature Granulocyte % (Auto) 1 % Neutrophils (%) (Auto) 61 42-75 % Lymphocytes (%) (Auto) 28 12-44 % Monocytes (%) (Auto) 8 0-12 % Eosinophils (%) (Auto) 3 0-10 % Basophils (%) (Auto) 0 0-10 % Neutrophils # (Auto) 4.8 1.8-7.8 X 10^3 Lymphocytes # (Auto) 2.2 1.0-4.0 X 10^3 Monocytes # (Auto) 0.6 0.0-1.0 X 10^3 Eosinophils # (Auto) 0.2 0.0-0.3 10^3/uL Basophils # (Auto) 0.0 0.0-0.1 10^3/uL Immature Granulocyte # (Auto) 0.0 0.0-0.1 10^3/uL Prothrombin Time 22.5 H 12.2-14.7 SEC INR Comment 2.0 H 0.8-1.4 Activated Partial Thromboplast Time 48 H 24-35 SEC Sodium Level 140 135-145 MMOL/L Potassium Level 4.2 3.6-5.0 MMOL/L Chloride Level 108 H 98-107 MMOL/L Carbon Dioxide Level 24 21-32 MMOL/L Anion Gap 8 5-14 MMOL/L Blood Urea Nitrogen 10 7-18 MG/DL Creatinine 0.74 0.60-1.30 MG/DL Estimat Glomerular Filtration Rate > 60 BUN/Creatinine Ratio 14 Glucose Level 113 H 70-105 MG/DL Calcium Level 9.1 8.5-10.1 MG/DL Corrected Calcium 8.9 8.5-10.1 MG/DL Magnesium Level 1.9 1.6-2.4 MG/DL Total Bilirubin 0.2 0.1-1.0 MG/DL Aspartate Amino Transf (AST/SGOT) 25 5-34 U/L Alanine Aminotransferase (ALT/SGPT) 22 0-55 U/L Alkaline Phosphatase 63 40-136 U/L Myoglobin 45.7 10.0-92.0 NG/ML Troponin I < 0.30 <0.30 NG/ML Pro-B-Type Natriuretic Peptide 22.6 <75.0 PG/ML Total Protein 7.0 6.4-8.2 GM/DL Albumin 4.2 3.2-4.5 GM/DL Lipase 48 8-78 U/L My Orders Orders - TAMMYKERVIN J Ekg Tracing (11/29/20 13:41) Cbc With Automated Diff (11/29/20 13:57) Magnesium (11/29/20 13:57) Chest 1 View Ap/Pa Only (11/29/20 13:57) Comprehensive Metabolic Panel (11/29/20 13:57) Myoglobin Serum (11/29/20 13:57) Protime With Inr (11/29/20 13:57) Partial Thromboplastin Time (11/29/20 13:57) O2 (11/29/20 13:57) Monitor-Rhythm Ecg Trace Only (11/29/20 13:57) Lipid Panel (11/30/20 06:00) Aspirin Chewable Tablet (Baby Aspirin Ch (11/29/20 14:00) Ed Iv/Invasive Line Start (11/29/20 13:57) Lipase (11/29/20 13:57) Troponin I Fs (11/29/20 13:57) Probnp Fs (11/29/20 13:57) Medications Given in ED Current Medications Medications Dose Ordered Sig/Helder Route Start Time Stop Time Status Last Admin Dose Admin Aspirin 324 mg ONCE ONCE PO 11/29/20 14:00 11/29/20 14:01 DC 11/29/20 14:07 324 MG Vital Signs/I&O 11/29/20 13:42 Temp 36.2 Pulse 85 Resp 16 B/P (MAP) 138/92 (107) Pulse Ox 97 Blood Pressure Mean: 107 Progress Progress Note #1: Time: 14:11 Progress Note Get a set of EKG, troponin labs and a lipase. Could be musculoskeletal related to his surgery a year ago. We gave him some aspirin to chew and swallow. He is not having any symptoms presently. Progress Note #2: Time: 15:36 Progress Note Discussed the case with Dr. Jacob his personal night shift manager who recommends that he would not change any of his medications and just have him see him in 1 to 2 weeks. Patient is still pain-free and has had no material deterioration during his ER stay. He has had no dysrhythmias noted on the monitor. He is still not having any chest pain. Initial ECG Impression Date: Nov 29, 2020 Initial ECG Impression Time: 13:42 Initial ECG Rate: 85 Initial ECG Rhythm: Normal Sinus Initial ECG Intervals: Normal Initial ECG Impression: Normal Comment Normal sinus rhythm without clinically relevant ST elevation or depression. Diagnostic Imaging Diagonstic Imaging: Xray Plain Films/CT/US/NM/MRI: chest Comments NAME: TRUPTI JUAREZ [facility] REC#: [id number] PT STATUS: REG ER : 1985 PHYSICIAN: KERVIN MUNOZ MD ADMIT DATE: 11/29/20/ER FS Draft Date of Exam:11/29/20 CHEST 1 VIEW AP/PA ONLY INDICATION: Chest pain. TECHNIQUE: Frontal chest obtained at 01:54 p.m. and compared to 05/15/2020. FINDINGS: Patient has had a previous sternotomy. The heart is normal in size. Loop recorder is visualized over the chest wall. There is no focal infiltrate or pneumothorax or pleural fluid. IMPRESSION: No acute process in the chest. No change from 05/15/2020. Dictated on workstation # [id number] Dict: 11/29/20 1426 Trans: 11/29/20 1428 [id number] Interpreted by: ALIYAH ORTIZ MD Electronically signed by: Reviewed: Reviewed by Me Departure Impression Primary Impression: Chest pain Qualified Codes: R07.9 - Chest pain, unspecified Additional Impressions: Aortic valve replaced Warfarin anticoagulation Disposition: HOME, SELF-CARE Condition: Stable Departure-Patient Inst. Decision time for Depature: 15:30 Referrals: [facility] (PCP) Primary Care Physician YESSENIA HARDING APRN (Family) Primary Care Physician Patient Instructions: Chest Pain (DC) Add. Discharge Instructions: Follow-up with Dr. Jacob in the next 1 to 2 weeks by calling his clinic and asking for an appointment. All discharge instructions reviewed with patient and/or family. Voiced understanding. Work/School Note: Work Release Form Date Seen in the Emergency Department: Nov 29, 2020 Return to Work: Nov 30, 2020 Restrictions: No Restrictions KERVIN MUNOZ Nov 29, 2020 14:00
[2020-11-29 14:07] LABS: HEMATOCRIT 43 % (40-54); HEMOGLOBIN 15.3 G/DL (13.3-17.7); MEAN CORPUSCULAR HEMOGLOBIN 29 PG (25-34); MEAN CORPUSCULAR HGB CONC 35 G/DL (32-36); MEAN CORPUSCULAR VOLUME 82 FL (80-99); WHITE BLOOD COUNT 7.9 10^3/uL (4.3-11.0)
[2020-11-29 14:08] LABS: BASOPHILS % (AUTO) 0 % (0-10); EOSINOPHILS # (AUTO) 0.2 10^3/uL (0.0-0.3); EOSINOPHILS % (AUTO) 3 % (0-10); LYMPHOCYTES # (AUTO) 2.2 X 10^3 (1.0-4.0); LYMPHOCYTES % (AUTO) 28 % (12-44); MEAN PLATELET VOLUME 9.7 FL (7.4-10.4); MONOCYTES # (AUTO) 0.6 X 10^3 (0.0-1.0); MONOCYTES % (AUTO) 8 % (0-12); NEUTROPHILS # (AUTO) 4.8 X 10^3 (1.8-7.8); NEUTROPHILS % (AUTO) 61 % (42-75); PLATELET COUNT 211 10^3/uL (130-400)
[2020-11-29 14:26] LABS: PROTHROMBIN TIME PATIENT 22.5 SEC (12.2-14.7)
--- NOTE | 2020-11-29 14:29 | Diagnostic Imaging Report ---
INDICATION: Chest pain. TECHNIQUE: Frontal chest obtained at 01:54 p.m. and compared to 05/15/2020. FINDINGS: Patient has had a previous sternotomy. The heart is normal in size. Loop recorder is visualized over the chest wall. There is no focal infiltrate or pneumothorax or pleural fluid. IMPRESSION: No acute process in the chest. No change from 05/15/2020. Dictated by: Dictated on workstation # [id number]
[2020-11-29 14:42] LABS: BUN/CREATININE RATIO 14; CALCIUM 9.1 MG/DL (8.5-10.1); CARBON DIOXIDE 24 MMOL/L (21-32); CHLORIDE 108 MMOL/L (98-107); CREATININE SERUM 0.74 MG/DL (0.60-1.30); GFR ESTIMATED > 60; GLUCOSE 113 MG/DL (70-105); POTASSIUM 4.2 MMOL/L (3.6-5.0); SODIUM 140 MMOL/L (135-145)
[2020-11-29 14:43] LABS: ALANINE AMINOTRANSFERASE 22 U/L (0-55); ALBUMIN 4.2 GM/DL (3.2-4.5); ALKALINE PHOSPHATASE 63 U/L (40-136); BILIRUBIN,TOTAL 0.2 MG/DL (0.1-1.0); LIPASE 48 U/L (8-78); MAGNESIUM 1.9 MG/DL (1.6-2.4)
[2020-11-29 15:47] VITALS: BP 115/73
== END 2020-11-29 15:49 | disposition home or self-care (01) ==
LOC: EDUNIT# 13:39 → ER FS 13:41
DX: R07.89 Other chest pain (principal); J41.0 Simple chronic bronchitis; I48.91 Unspecified atrial fibrillation; F17.210 Nicotine dependence, cigarettes, uncomplicated; Z95.4 Presence of other heart-valve replacement; Z79.01 Long term (current) use of anticoagulants; Z95.810 Presence of automatic (implantable) cardiac defibrillator; Z88.5 Allergy status to narcotic agent
CPT/HCPCS: 36415; 71045; 80053; 83690; 83735; 83874; 83880; 84484; 85025; 85610; 85730; 93005; 93041

== ENCOUNTER 2020-12-30 21:30 | Emergency (ER) | payer BC ==
[~2020-12-30] VITALS: Ht 180 cm; Wt 145.5 kg
--- NOTE | 2020-12-30 21:44 | ED Chest Pain ---
General Stated Complaint: CP/L SHOULDER PAIN Source: patient Exam Limitations: no limitations History of Present Illness Date Seen by Provider: Dec 30, 2020 Time Seen by Provider: 21:40 Initial Comments To ER with left shoulder pain as well as shortness of breath since awakening today at 3 PM. He has a history of atrial fibrillation for which she is on Toprol-XL 200 mg daily and diltiazem 120 mg daily as well as Coumadin. He has a history of a bicuspid aortic valve replaced with a mechanical valve at [facility] in November 2019. Primary care is Yessenia Harding nurse practitioner with [facility] and service worker helper was Dr. Mesa. He would now like to see Dr. Kirby. Since awakening today at 3 PM he has had some ongoing shortness of breath and palpitations. He does have a history of V. tach for which she has been cardioverted several times and he has had 2 ablations. Smokes 1 pack of cigarettes per day. Denies alcohol use. Timing/Duration: changing over time Severity/Quality: moderate Location: central Radiation: shoulders Activities at Onset: none ASA po DIETITIAN: No NTG SL DIETITIAN: No Associated Symptoms: shortness of breath Allergies and Home Medications Allergies Coded Allergies: hydrocodone (Verified Allergy, Unknown, itching, 02/19/20) Home Medications Amoxicillin/Potassium Clav 1 Each Tablet, 1 EACH PO Q8H Prescribed by: JACOBO DAS on 07/17/20 1145 Diltiazem HCl 120 Mg Cap.er.24h, 120 MG PO HS, (Reported) Metoprolol Succinate 200 Mg Tab.er.24h, 200 MG PO 1999, (Reported) Nicotine 1 Each Patch.td24, 1 PATCH TD DAILY, (Reported) Oxycodone HCl/Acetaminophen 1 Each Tablet, 1 EACH PO Q4H PRN for PAIN-MODERATE (5-7) Prescribed by: JACOBO DAS on 07/17/20 1145 Warfarin Sodium 10 Mg Tablet, 5 MG PO MON,FRI, (Reported) Warfarin Sodium 10 Mg Tablet, 10 MG PO ,,,,SAT, (Reported) Patient Home Medication List Home Medication List Reviewed: Yes Review of Systems Review of Systems Constitutional: see HPI; No chills, No fever EENTM: No Symptoms Reported Respiratory: See HPI; Denies Cough; Shortness of Air Cardiovascular: See HPI, Chest Pain Gastrointestinal: No Symptoms Reported Genitourinary: No Symptoms Reported Musculoskeletal: no symptoms reported Skin: no symptoms reported Psychiatric/Neurological: No Symptoms Reported Endocrine: No Symptoms Reported Hematologic/Lymphatic: No Symptoms Reported Past Seagoep-Mrwjsf-Ychtcf Hx Patient Social History Drug of Choice: THC, MARIJUANA Type Used: Cigars, Cigarettes 2nd Hand Smoke Exposure: No Recent Hopitalizations: No Immunizations Up To Date Tetanus Booster (TDap): Less than 5yrs Date of Influenza Vaccine: Jun 03, 2019 Seasonal Allergies Seasonal Allergies: No Past Medical History Surgeries: Yes (ablation-svt/a-fib, LOOP RECORDER 01/02/19,bicuspid valve replacement) Cardiac, Tonsillectomy, Valve Replacement Respiratory: No Currently Using CPAP: No Currently Using BIPAP: No Cardiac: Yes (ASCENDING THORACIC AORTIC ANEURYSM;BICUSPID AORTIC VALVE;AFIB/RVR;V-TACH ) Aneurysm, Atrial Fibrillation, Heart Murmur, High Cholesterol, Irregular Heartbeat, Palpitations, Valvular Heart Disease Neurological: Yes Headaches /Migraines Genitourinary: No Gastrointestinal: No Musculoskeletal: Yes Chronic Back Pain Endocrine: No HEENT: No Cancer: No Psychosocial: No Integumentary: No Blood Disorders: No Adverse Reaction/Blood Tranf: No Family Medical History Hypertension Physical Exam Vital Signs Vital Signs - First Documented 12/30/20 21:30 Temp 36.6 Pulse 103 Resp 22 B/P (MAP) 132/92 (105) Pulse Ox 98 O2 Delivery Room Air Capillary Refill : Height, Weight, BMI Height: 5'11.00" Weight: 308lbs. 0.0oz. [id number]; 42.57 BMI Method:Stated General Appearance: No Apparent Distress, WD/WN, Obese, Other (Alert and oriented, pleasant, no distress. Heart rate is 95 sinus rhythm without ectopy. Blood pressure 135/92. He is a little dyspneic.) HEENT: PERRL/EOMI Neck: Full Range of Motion, Normal Inspection Respiratory: Lungs Clear, Normal Breath Sounds, No Accessory Muscle Use, No Respiratory Distress Cardiovascular: Regular Rate, Rhythm, Normal Peripheral Pulses, Other (clicking of mechanical aortic valve noted) Gastrointestinal: Normal Bowel Sounds, Non Tender, Soft Extremity: Other (pain betwen scapula and spine that feels like a "Justin horse". This area is very tender to palpation. ) Neurologic/Psychiatric: Alert, Oriented x3 Skin: Normal Color, Warm/Dry Progress/Results/Core Measures Results/Orders Lab Results Laboratory Tests Test 12/30/20 21:40 Range/Units White Blood Count 8.9 4.3-11.0 10^3/uL Red Blood Count 5.55 H 4.30-5.52 10^6/uL Hemoglobin 16.2 13.3-17.7 g/dL Hematocrit 46 40-54 % Mean Corpuscular Volume 84 80-99 fL Mean Corpuscular Hemoglobin 29 25-34 pg Mean Corpuscular Hemoglobin Concent 35 32-36 g/dL Red Cell Distribution Width 12.7 10.0-14.5 % Platelet Count 243 130-400 10^3/uL Mean Platelet Volume 10.1 9.0-12.2 fL Immature Granulocyte % (Auto) 1 % Neutrophils (%) (Auto) 58 42-75 % Lymphocytes (%) (Auto) 31 12-44 % Monocytes (%) (Auto) 7 0-12 % Eosinophils (%) (Auto) 3 0-10 % Basophils (%) (Auto) 1 0-10 % Neutrophils # (Auto) 5.2 1.8-7.8 10^3/uL Lymphocytes # (Auto) 2.8 1.0-4.0 10^3/uL Monocytes # (Auto) 0.7 0.0-1.0 10^3/uL Eosinophils # (Auto) 0.2 0.0-0.3 10^3/uL Basophils # (Auto) 0.0 0.0-0.1 10^3/uL Immature Granulocyte # (Auto) 0.1 0.0-0.1 10^3/uL Prothrombin Time 29.7 H 12.2-14.7 SEC INR Comment 2.8 H 0.8-1.4 Activated Partial Thromboplast Time 57 H 24-35 SEC Sodium Level 138 135-145 MMOL/L Potassium Level 3.9 3.6-5.0 MMOL/L Chloride Level 104 98-107 MMOL/L Carbon Dioxide Level 24 21-32 MMOL/L Anion Gap 10 5-14 MMOL/L Blood Urea Nitrogen 10 7-18 MG/DL Creatinine 0.85 0.60-1.30 MG/DL Estimat Glomerular Filtration Rate > 60 BUN/Creatinine Ratio 12 Glucose Level 116 H 70-105 MG/DL Calcium Level 9.0 8.5-10.1 MG/DL Corrected Calcium 8.7 8.5-10.1 MG/DL Magnesium Level 2.1 1.6-2.4 MG/DL Total Bilirubin 0.4 0.1-1.0 MG/DL Aspartate Amino Transf (AST/SGOT) 33 5-34 U/L Alanine Aminotransferase (ALT/SGPT) 37 0-55 U/L Alkaline Phosphatase 62 40-136 U/L Myoglobin 45.2 10.0-92.0 NG/ML Troponin I < 0.028 <0.028 NG/ML Total Protein 7.4 6.4-8.2 GM/DL Albumin 4.4 3.2-4.5 GM/DL My Orders Orders - JAMES GRAHAM APRN Chest 1 View, Ap/Pa Only (12/30/20 21:32) Ekg Tracing (12/30/20 21:32) Aspirin Chewable Tablet (Baby Aspirin Ch (12/30/20 21:45) Cbc With Automated Diff (12/30/20 21:32) Magnesium (12/30/20 21:32) Comprehensive Metabolic Panel (12/30/20 21:32) Myoglobin Serum (12/30/20 21:32) Protime With Inr (12/30/20 21:32) Partial Thromboplastin Time (12/30/20 21:32) O2 (12/30/20 21:32) Monitor-Rhythm Ecg Trace Only (12/30/20 21:32) Lipid Panel (12/31/20 06:00) Ed Iv/Invasive Line Start (12/30/20 21:32) BNP (12/30/20 21:32) Fibrin Degradation Products (12/30/20 21:32) Troponin I (12/30/20 21:32) Ketorolac Injection (Toradol Injection) (12/30/20 22:30) Orphenadrine Inj (Ed Only) (Norflex Inje (12/30/20 22:30) Medications Given in ED Current Medications Medications Dose Ordered Sig/Helder Route Start Time Stop Time Status Last Admin Dose Admin Aspirin 324 mg ONCE ONCE PO 12/30/20 21:45 12/30/20 21:46 DC 12/30/20 21:47 324 MG Vital Signs/I&O 12/30/20 12/30/20 21:30 21:30 Temp 36.6 Pulse 103 Resp 22 B/P (MAP) 132/92 (105) Pulse Ox 98 O2 Delivery Room Air Room Air Diagnostic Imaging Diagonstic Imaging: Xray Plain Films/CT/US/NM/MRI: chest Comments NAME: TRUPTI JUAREZ [facility] REC#: [id number] PT STATUS: REG ER : 1985 PHYSICIAN: JAMES GRAHAM APRN ADMIT DATE: 12/30/20/ER Draft Date of Exam:12/30/20 CHEST 1 VIEW, AP/PA ONLY INDICATION: Aortic valve replacement, chest pain. COMPARISON: 11/29/2020. FINDINGS: Loop recorder and midline sternal wires stable. Cardiomediastinal and hilar contours are stable. The lungs are clear. There is no vascular congestion. No edema, pneumonia, effusion or pneumothorax. IMPRESSION: Stable chest. Dictated on workstation # [id number] Dict: 12/30/202152 Trans: 12/30/202200 [facility] [id number] Interpreted by: SANDRITA ROBLEDO Electronically signed by: Departure Impression Primary Impression: Aortic valve replaced Disposition: 01 HOME, SELF-CARE Condition: Stable Departure-Patient Inst. Decision time for Depature: 22:29 Referrals: [facility] (PCP) Primary Care Physician YESSENIA HARDING APRN (Family) Primary Care Physician NATALIIA VERDUZCO MD, ALI MD [facility]S Patient Instructions: Chest Pain (DC) Images Torso/Trunk 1 - Tenderness JAMES GRAHAM APRN Dec 30, 2020 21:43
[2020-12-30] MEDS ORDERED: ASPIRIN 81 MG CHEW (CHILDREN'S ASA) PO ONE (21:45)
[2020-12-30 22:01] LABS: BASOPHILS % (AUTO) 1 % (0-10); EOSINOPHILS # (AUTO) 0.2 10^3/uL (0.0-0.3); EOSINOPHILS % (AUTO) 3 % (0-10); HEMATOCRIT 46 % (40-54); HEMOGLOBIN 16.2 g/dL (13.3-17.7); LYMPHOCYTES # (AUTO) 2.8 10^3/uL (1.0-4.0); LYMPHOCYTES % (AUTO) 31 % (12-44); MEAN CORPUSCULAR HEMOGLOBIN 29 pg (25-34); MEAN CORPUSCULAR HGB CONC 35 g/dL (32-36); MEAN CORPUSCULAR VOLUME 84 fL (80-99); MEAN PLATELET VOLUME 10.1 fL (9.0-12.2); MONOCYTES # (AUTO) 0.7 10^3/uL (0.0-1.0); MONOCYTES % (AUTO) 7 % (0-12); NEUTROPHILS # (AUTO) 5.2 10^3/uL (1.8-7.8); NEUTROPHILS % (AUTO) 58 % (42-75); PLATELET COUNT 243 10^3/uL (130-400); WHITE BLOOD COUNT 8.9 10^3/uL (4.3-11.0)
--- NOTE | 2020-12-30 22:02 | Diagnostic Imaging Report ---
INDICATION: Aortic valve replacement, chest pain. COMPARISON: 11/29/2020. FINDINGS: Loop recorder and midline sternal wires stable. Cardiomediastinal and hilar contours are stable. The lungs are clear. There is no vascular congestion. No edema, pneumonia, effusion or pneumothorax. IMPRESSION: Stable chest. Dictated by: Dictated on workstation # [id number]
[2020-12-30 22:12] LABS: INR 2.8 (0.8-1.4); PROTHROMBIN TIME PATIENT 29.7 SEC (12.2-14.7)
[2020-12-30 22:19] LABS: ALANINE AMINOTRANSFERASE 37 U/L (0-55); ALBUMIN 4.4 GM/DL (3.2-4.5); ALKALINE PHOSPHATASE 62 U/L (40-136); BILIRUBIN,TOTAL 0.4 MG/DL (0.1-1.0); BUN/CREATININE RATIO 12; CARBON DIOXIDE 24 MMOL/L (21-32); CHLORIDE 104 MMOL/L (98-107); CREATININE SERUM 0.85 MG/DL (0.60-1.30); GFR ESTIMATED > 60; GLUCOSE 116 MG/DL (70-105); MAGNESIUM 2.1 MG/DL (1.6-2.4); POTASSIUM 3.9 MMOL/L (3.6-5.0); SODIUM 138 MMOL/L (135-145); TOTAL PROTEIN 7.4 GM/DL (6.4-8.2)
[2020-12-30] MEDS ORDERED: ORPHENADRINE 60 MG/2 ML (NORFLEX) AMP (ED ONLY) IV ONE (22:30)
[2020-12-30] MEDS ORDERED: KETOROLAC 30 MG/ML VIAL IVP ONE (22:30)
[2020-12-30 22:55] VITALS: BP 115/80
== END 2020-12-30 22:56 | disposition home or self-care (01) ==
LOC: EDUNIT# 21:30 → ER 21:32
DX: Z95.2 Presence of prosthetic heart valve (principal); E66.9 Obesity, unspecified; I48.91 Unspecified atrial fibrillation; G89.29 Other chronic pain; M54.9 Dorsalgia, unspecified; Z68.41 Body mass index [BMI] 40.0-44.9, adult; Z88.5 Allergy status to narcotic agent; Z79.01 Long term (current) use of anticoagulants; Z79.891 Long term (current) use of opiate analgesic
CPT/HCPCS: 36415; 71045; 80053; 83735; 83874; 83880; 84484; 85025; 85379; 85610; 85730; 93005; 93041

== ENCOUNTER 2021-05-14 21:02 | Emergency (ER) | payer BC ==
--- NOTE | 2021-05-14 22:46 | ED General ---
General Chief Complaint: General Problems/Pain Stated Complaint: MIGRANE Nursing Triage Note: Pt complaining of left neck/back pain. Pt states that he thinks it is muscle pain from lifting furniture at his house. Pt states this pain has caused a migraine. Source of Information: Patient History of Present Illness Date Seen by Provider: May 14, 2021 Time Seen by Provider: 22:21 Initial Comments 35-year-old male presenting with complaints of pain and spasm in the left upper back going into his neck. He reports that he has recently been having from his old house to a new house and has been having to lift a lot of heavy furniture. He also had fallen backwards once on a trailer. He has been getting some relief by taking Tylenol for the pain. He has had some similar symptoms in the past that were improved by seeing a massage therapist. He has intermittent mild tingling to his fingers on the left hand. He has had no nausea or vomiting. He had tried to go to urgent care this morning but they were too busy so he took Tylenol and left. However this evening the pain was getting worse again so he came in to be seen. He denies any direct trauma to his shoulder and upper back area where he has pain Timing/Duration: 2-3 Days Severity: Severe Modifying Factors: improves with Medication (Acetaminophen helps some); worse with Movement Associated Systoms: No Chest Pain, No Cough, No Diaphoresis, No Fever/Chills; Headaches (From the back of his head forward); No Loss of Appetite, No Malaise, No Nausea/Vomiting, No Rash, No Seizure, No Shortness of Air, No Syncope, No Weakness Allergies and Home Medications Allergies Coded Allergies: hydrocodone (Verified Allergy, Unknown, itching, 02/19/20) Patient Home Medication List Home Medication List Reviewed: Yes Amoxicillin/Potassium Clav (Augmentin 500-125 Tablet) 1 Each Tablet, 1 EACH PO Q8H Prescribed by: JACOBO DAS on 07/17/20 1145 Baclofen (Baclofen) 10 Mg Tablet, 10 MG PO TID PRN for MUSCLE SPASMS Prescribed by: YOVANI BRONSON on 05/14/21 2315 Diltiazem HCl (Diltiazem 24Hr ER) 120 Mg Cap.er.24h, 120 MG PO HS, (Reported) Entered as Reported by: ZAHRA DURBIN on 07/16/20 0909 Metoprolol Succinate (Metoprolol Succinate) 200 Mg Tab.er.24h, 200 MG PO 1999, (Reported) Entered as Reported by: ZAHRA DURBIN on 12/22/19 1139 Nicotine (Nicotine Patch) 1 Each Patch.td24, 1 PATCH TD DAILY, (Reported) Entered as Reported by: ZAHRA DURBIN on 07/16/20 09 Oxycodone HCl/Acetaminophen (Percocet 7.5-325 mg Tablet) 1 Each Tablet, 1 EACH PO Q4H PRN for PAIN-MODERATE (5-7) Prescribed by: JACOBO DAS on 07/17/20 1145 Warfarin Sodium (Warfarin Sodium) 10 Mg Tablet, 5 MG PO MON,FRI, (Reported) Entered as Reported by: ZAHRA DURBIN on 07/16/20 09 Warfarin Sodium (Warfarin Sodium) 10 Mg Tablet, 10 MG PO SARABIA,TU,WE,TH,SAT, (Reported) Entered as Reported by: ZAHRA DURBIN on 07/16/20 09 Review of Systems Review of Systems Constitutional: No chills, No fever EENTM: No vision loss, No epistaxis, No nose congestion Respiratory: No cough, No hemoptysis, No orthopnea, No short of breath, No stridor, No wheezing Cardiovascular: chest pain (Pain to the upper back on the left side over his trapezius and rhomboid muscle area) Gastrointestinal: no symptoms reported Genitourinary: no symptoms reported Musculoskeletal: see HPI Skin: No change in color Psychiatric/Neurological: Headache, Tingling (Left fingers); Denies Weakness Past Qbjsbby-Vtukqr-Qrobuw Hx Patient Social History Tobacco Use?: Yes Tobacco type used: Cigarettes Smoking Status: Current Everyday Smoker Use of E-Cig and/or Vaping dev: No Substance use?: Yes Substance type: Marijuana Alcohol Use?: No Pt feels they are or have been: No Immunizations Up To Date Tetanus Booster (TDap): Less than 5yrs Seasonal Allergies Seasonal Allergies: No Past Medical History Surgeries: Yes (ablation-svt/a-fib, LOOP RECORDER 01/02/19,bicuspid valve replacement) Cardiac, Tonsillectomy, Valve Replacement Respiratory: No Currently Using CPAP: No Currently Using BIPAP: No Cardiac: Yes (ASCENDING THORACIC AORTIC ANEURYSM;BICUSPID AORTIC VALVE;AFIB/RVR;V-TACH ) Aneurysm, Atrial Fibrillation, Heart Murmur, High Cholesterol, Irregular Heartbeat, Palpitations, Valvular Heart Disease Neurological: Yes Headaches /Migraines Genitourinary: No Gastrointestinal: No Musculoskeletal: Yes Chronic Back Pain Endocrine: No HEENT: No Cancer: No Psychosocial: No Integumentary: No Blood Disorders: No Adverse Reaction/Blood Tranf: No Family Medical History Hypertension Physical Exam Vital Signs Vital Signs - First Documented 05/14/21 21:07 Pulse 93 Resp 18 B/P (MAP) 149/90 (109) Pulse Ox 95 O2 Delivery Room Air Capillary Refill : Less Than 3 Seconds Height, Weight, BMI Height: 5'11.00" Weight: 308lbs. 0.0oz. 139.943673tn; 44.00 BMI Method:Stated General Appearance: Mild Distress, Obese HEENT: PERRL/EOMI, Pharynx Normal Neck: Full Range of Motion, Supple, Tender Lateral (Left sided muscle pain to p alpation. No pain over the cervical spine itself) Respiratory: Lungs Clear, Normal Breath Sounds, No Accessory Muscle Use, No Respiratory Distress; No Decreased Breath Sounds, No Stridor, No Wheezing; Other (Tender to palpation with muscle spasms of the left trapezius and rhomboid muscle) Cardiovascular: Regular Rate, Rhythm, Normal Peripheral Pulses Back: No CVA Tenderness, Muscle Spasm (With pain on the left rhomboid and trapezius) Extremity: Normal Capillary Refill, Normal Inspection, No Pedal Edema Neurologic/Psychiatric: Alert, Oriented x3, No Motor/Sensory Deficits, materials clerk II-XII Norm as Tested Skin: Normal Color, Warm/Dry Progress/Results/Core Measures Suspected Sepsis SIRS Temperature: Pulse: 93 Respiratory Rate: 18 Blood Pressure 149 /90 Mean: 109 Results/Orders My Orders Orders - YOVANI BRONSON MD Dexamethasone Injection (Decadron Inje (05/14/21 23:09) Methylprednisolone Acetate Inj (Depo-Med (05/14/21 23:09) Orphenadrine Inj (Ed Only) (Norflex Inje (05/14/21 23:09) Rx-Oxycodone/Apap 5-325 Mg (Rx-Percocet (05/14/21 23:15) Ed Ortho/Other Supplies Order (05/14/21 23:16) Orthopedic Equiment (05/14/21 23:16) Medications Given in ED Current Medications Medications Dose Ordered Sig/Helder Route Start Time Stop Time Status Last Admin Dose Admin Oxycodone/ Acetaminophen 1 ea Q6H PRN PO 05/14/21 23:15 05/14/21 23:25 DC 05/14/21 23:20 1 EA Vital Signs/I&O 05/14/21 05/14/21 21:07 23:17 Pulse 93 93 Resp 18 18 B/P (MAP) 149/90 (109) 149/90 Pulse Ox 95 95 O2 Delivery Room Air Room Air Capillary Refill : Less Than 3 Seconds Blood Pressure Mean: 109 Progress Note : Progress Note Counseled patient on treatment and advised that with his fall backward on a trailer I could certainly also images thoracic spine to look for fractures. Patient declined stating he did not feel the rib fractures and just felt that it was more a pull or strain or possible tear of the muscle. There may be a pinc hed nerve but nonetheless they will show up on x-rays or even a CT. He was unsure if he can get an MRI since he has a artificial valve and a monitoring device in his chest. Since patient did not want imaging will try using a steroid for pain control and inflammation since he cannot take NSAIDs due to his anticoagulation for his artificial valve. Also try muscle relaxer to help with his spasms and muscle pain of the back and neck. We will send a few Percocet with the patient for severe pain. Patient refused prescription for home but was willing to take the 4 pills of percocet to try and help with severe pain. Encourage fluids, hydration, rest, use of sling to allow his arm to rest when he was not using it. Use ice to help with inflammation and pain as well. Counseled on follow-up and return precautions. Departure Impression Primary Impression: Strain of left trapezius muscle Qualified Codes: S46.812A - Strain of other muscles, fascia and tendons at shoulder and upper arm level, left arm, initial encounter Additional Impressions: Rhomboid muscle strain Qualified Codes: S29.012A - Strain of muscle and tendon of back wall of thorax, initial encounter Tension headache Disposition: 01 HOME, SELF-CARE Condition: Stable Departure-Patient Inst. Decision time for Depature: 23:12 Referrals: [facility] [place]) Primary Care Physician YESSENIA HARDING APRN (Family) Primary Care Physician Patient Instructions: How to Use a Shoulder Sling ED, Muscle Strain ED, Upper Back Pain ED Add. Discharge Instructions: Take muscle relaxer to help with pain and spasms of muscles in upper back and shoulder. May use Ice 20-30 minutes every few hours as needed for pain and inflammation The steroid shots from tonight will help with inflammation over the next 7 to 10 days. If you have worsening pain, worsening tingling or weakness in your hand where you are dropping things then see clinic as you may need nerve testing. Use sling for support and to let your arm and shoulder rest when you are not using it in the next 4-5 days. All discharge instructions reviewed with patient and/or family. Voiced understanding. Scripts Baclofen (Baclofen) 10 Mg Tablet 10 MG PO TID PRN for MUSCLE SPASMS for 7 Days, #21 TAB 0 Refills Prov: YOVANI BRONSON MD 05/14/21 Images Torso/Trunk 1 - Muscle Spams (tenderness with muscle spasms of left trapezius and rhomboid muscles), Tenderness YOVANI BRONSON MD May 14, 2021 22:46
[2021-05-14] MEDS ORDERED: ORPHENADRINE 60 MG/2 ML (NORFLEX) AMP (ED ONLY) IM STA (23:09)
[2021-05-14] MEDS ORDERED: methylPREDNISolone 80 MG/ML (DEPO MEDROL) VIAL IM STA (23:09)
[2021-05-14] MEDS ORDERED: RX-OXYCODONE/APAP 5-325 MG #4 TAB PK PO PRN (23:15)
[2021-05-14] MEDS ORDERED: BACL10TA PO (23:15)
[2021-05-14 23:17] VITALS: BP 149/90
== END 2021-05-14 23:25 | disposition home or self-care (01) ==
LOC: EDUNIT# 21:02 → ER FS 21:04
DX: S46.912A Strain of unspecified muscle, fascia and tendon at shoulder and upper arm level, left arm, initial encounter (principal); S29.012A Strain of muscle and tendon of back wall of thorax, initial encounter; G44.209 Tension-type headache, unspecified, not intractable; E66.9 Obesity, unspecified; I48.91 Unspecified atrial fibrillation; Z68.41 Body mass index [BMI] 40.0-44.9, adult; F17.210 Nicotine dependence, cigarettes, uncomplicated; Z79.01 Long term (current) use of anticoagulants; Z79.899 Other long term (current) drug therapy; X50.0XXA Overexertion from strenuous movement or load, initial encounter
CPT/HCPCS: 99284; A4565

== ENCOUNTER 2021-06-29 15:38 | Observation (INO) | payer BC ==
[~2021-06-29] VITALS: Ht 180 cm; Wt 144.7 kg
[2021-06-29] VITALS (7 sets, daily range): BP systolic 109–128; BP diastolic 66–83
[~2021-06-29 15:38] MED LIST changes: +BACL10TA PO; +CLIN-144 PO; -CLIN300C12 PO
[2021-06-29] MEDS ORDERED: NITROGLYCERIN 0.4 MG SL TABS BTL 25'S SL ONE (15:48)
[2021-06-29] MEDS ORDERED: ASPIRIN 81 MG CHEW (CHILDREN'S ASA) ONE (15:48)
[2021-06-29 15:54] LABS: BASOPHILS # (AUTO) 0.1 10^3/uL (0.0-0.1); BASOPHILS % (AUTO) 1 % (0-10); EOSINOPHILS # (AUTO) 0.3 10^3/uL (0.0-0.3); EOSINOPHILS % (AUTO) 3 % (0-10); HEMATOCRIT 47 % (40-54); HEMOGLOBIN 16.5 g/dL (13.3-17.7); LYMPHOCYTES # (AUTO) 2.6 10^3/uL (1.0-4.0); LYMPHOCYTES % (AUTO) 29 % (12-44); MEAN CORPUSCULAR HEMOGLOBIN 30 pg (25-34); MEAN CORPUSCULAR HGB CONC 35 g/dL (32-36); MEAN CORPUSCULAR VOLUME 85 fL (80-99); MEAN PLATELET VOLUME 9.8 fL (9.0-12.2); MONOCYTES # (AUTO) 0.6 10^3/uL (0.0-1.0); MONOCYTES % (AUTO) 7 % (0-12); NEUTROPHILS # (AUTO) 5.3 10^3/uL (1.8-7.8); NEUTROPHILS % (AUTO) 60 % (42-75); PLATELET COUNT 222 10^3/uL (130-400); WHITE BLOOD COUNT 8.8 10^3/uL (4.3-11.0)
[2021-06-29] MEDS ORDERED: ASPIRIN 81 MG CHEW (CHILDREN'S ASA) PO ONE (16:00)
[2021-06-29] MEDS ORDERED: NITROGLYCERIN 0.4 MG SL TABS BTL 25'S SL PRN ×3 (16:00→18:15)
[2021-06-29 16:03] LABS: ALBUMIN 4.5 GM/DL (3.2-4.5); CHLORIDE 103 MMOL/L (98-107); INR 1.9 (0.8-1.4); POTASSIUM 3.8 MMOL/L (3.6-5.0); PROTHROMBIN TIME PATIENT 22.2 SEC (12.2-14.7); SODIUM 138 MMOL/L (135-145)
[2021-06-29 16:04] LABS: BILIRUBIN,URINE NEGATIVE (NEGATIVE); CLARITY,URINE CLEAR; COLOR,URINE YELLOW; GLUCOSE, URINE (UA) NEGATIVE (NEGATIVE); KETONES,URINE NEGATIVE (NEGATIVE); LEUKOCYTE ESTERASE ,URINE NEGATIVE (NEGATIVE); NITRITE,URINE NEGATIVE (NEGATIVE); PROTEIN,URINE NEGATIVE (NEGATIVE)
[2021-06-29 16:04] LABS: AMYLASE 39 U/L (25-125); CALCIUM 9.8 MG/DL (8.5-10.1)
[2021-06-29 16:05] LABS: GLUCOSE 112 MG/DL (70-105)
[2021-06-29 16:06] LABS: TOTAL PROTEIN 7.6 GM/DL (6.4-8.2)
--- NOTE | 2021-06-29 16:06 | Diagnostic Imaging Report ---
Portable erect AP chest at 4:05. Indication: Chest pain The heart size is within normal limits and stable when compared to 12/30/2020. The sternotomy wires and surgical clips in the loop recorder device seen previously are again visualized and no different. The lungs remain clear. There is still no sign of failure, pneumonia or pleural effusion to indicate an acute abnormality. The mediastinum is not widened. The osseous structures are intact. Impression: There is evidence of prior cardiac surgery but there is no sign of an acute cardiopulmonary abnormality. Dictated by: Dictated on workstation # [id number]
[2021-06-29 16:07] LABS: BILIRUBIN,TOTAL 0.6 MG/DL (0.1-1.0); CARBON DIOXIDE 25 MMOL/L (21-32)
[2021-06-29 16:09] LABS: ALKALINE PHOSPHATASE 72 U/L (40-136); CREATININE SERUM 0.88 MG/DL (0.60-1.30); GFR ESTIMATED 100
[2021-06-29 16:10] LABS: BUN/CREATININE RATIO 14
[2021-06-29 16:12] LABS: ALANINE AMINOTRANSFERASE 36 U/L (0-55); MAGNESIUM 1.9 MG/DL (1.6-2.4)
[2021-06-29 16:13] LABS: CREATINE KINASE 411 U/L (30-200); LIPASE 54 U/L (8-78)
--- NOTE | 2021-06-29 16:13 | ED Chest Pain ---
General Chief Complaint: Chest Pain Stated Complaint: CHEST PAIN Nursing Triage Note: AMB TO ED WITH C/O CHEST PAIN X 1 WEEK PAIN INTERMITTEN. HAS PMH OF VALVE REPLACEMENT AND ABLATION. REPORTS THAT SMOKES MARIJUANA DAILY Source: patient History of Present Illness Date Seen by Provider: Jun 29, 2021 Time Seen by Provider: 15:41 Initial Comments PT ARRIVES VIA POV FROM HOME C/O CHEST PAIN OFF AND ON FOR THE LAST 1-2 WEEKS PAIN IN CENTER AND LEFT CHEST-- AND OCCASIONALLY LEFT ARM HAS A SLIGHT DULL ACHE AND A LITTLE TINGLY. 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 C/O FEELING VERY TIRED C/O MILD SHORTNESS OF BREATH + SWEATS WITH MINIMAL ACTIVITY NO SWELLING IN LEGS/ FEET OR PAIN IN CALVES NO NAUSEA NO PALPITATIONS NO COUGH OR RECENT ILLNESS TOOK 1 GRAM TYLENOL EARLIER TODAY AND IT DID HELP BRIEFLY PT HAS HAD AORTIC VALVE REPLACEMENT 12/01/19 AT [facility] IN [place] PT ALSO HAS HISTORY OF ATRIAL FIBRILLATION/FLUTTER, SVT, AND HAS HAD MULTIPLE CARDIOVERSIONS AND CARDIAC ABLATIONS X 3--LAST ONE [place] [address] MEDEROS PT IS ON COUMADIN PT CONTINUES TO SMOKE, DOWN TO 1/2 PPD FROM 2 1/2 PPD, PT SMOKES MARIJUANA DAILY, AND OCCASIONALLY USES ALCOHOL DENIES ANY MISSED DOSES OF MEDICATIONS PT HAS NOT SEEN A CRAP SHOOTER FOR SOME TIME--WAS SEEING DR. NGUYỄN AT [facility] IN [place], BUT HE HAS RETIRED, AND PT HAS NOT ESTABLISHED WITH A NEW CRAP SHOOTER. PT HAS ONLY HAD ONE MODERNA COVID-19 VACCINE--SEVERAL MONTHS AGO. DENIES SICK CONTACTS PCP: CAROLE-Sebastian EVANS. Allergies and Home Medications Allergies Coded Allergies: hydrocodone (Verified Allergy, Unknown, itching, 02/19/20) Patient Home Medication List Home Medication List Reviewed: Yes Amoxicillin/Potassium Clav (Augmentin 500-125 Tablet) 1 Each Tablet, 1 EACH PO Q8H Prescribed by: JACOBO DAS on 07/17/20 1145 Baclofen (Baclofen) 10 Mg Tablet, 10 MG PO TID PRN for MUSCLE SPASMS Prescribed by: YOVANI BRONSON on 05/14/21 2315 Diltiazem HCl (Diltiazem 24Hr ER) 120 Mg Cap.er.24h, 120 MG PO HS, (Reported) Entered as Reported by: ZAHRA DURBIN on 07/16/20 09 Metoprolol Succinate (Metoprolol Succinate) 200 Mg Tab.er.24h, 200 MG PO 1999, (Reported) Entered as Reported by: ZAHRA DURBIN on 12/22/19 1139 Nicotine (Nicotine Patch) 1 Each Patch.td24, 1 PATCH TD DAILY, (Reported) Entered as Reported by: ZAHRA DURBIN on 07/16/20 09 Oxycodone HCl/Acetaminophen (Percocet 7.5-325 mg Tablet) 1 Each Tablet, 1 EACH PO Q4H PRN for PAIN-MODERATE (5-7) Prescribed by: JACOBO DAS on 07/17/20 1145 Warfarin Sodium (Warfarin Sodium) 10 Mg Tablet, 5 MG PO MON,FRI, (Reported) Entered as Reported by: ZAHRA DURBIN on 07/16/20 09 Warfarin Sodium (Warfarin Sodium) 10 Mg Tablet, 10 MG PO SARABIA,,,TH,SAT, (Reported) Entered as Reported by: ZAHRA DURBIN on 07/16/20 0911 Review of Systems Review of Systems Constitutional: see HPI, diaphoresis, malaise, weakness EENTM: No Symptoms Reported Respiratory: See HPI, Shortness of Air Cardiovascular: See HPI, Chest Pain; Denies Edema, Denies Irregular Heart Rate; Lightheadedness; Denies Palpitations, Denies Syncope Gastrointestinal: No Symptoms Reported; Denies Abdominal Pain, Denies Nausea, Denies Vomiting Genitourinary: No Symptoms Reported Musculoskeletal: no symptoms reported Skin: no symptoms reported Psychiatric/Neurological: No Symptoms Reported Endocrine: No Symptoms Reported Hematologic/Lymphatic: No Symptoms Reported Past Usuigwz-Epknfj-Apypww Hx Patient Social History Tobacco Use?: Yes Tobacco type used: Cigarettes Smoking Status: Current Everyday Smoker Substance use?: Yes Substance type: Marijuana Substance frequency: Daily Alcohol Use?: Yes Alcohol Frequency: Once in a while Immunizations Up To Date Tetanus Booster (TDap): Less than 5yrs Seasonal Allergies Seasonal Allergies: No Past Medical History Surgery/Hospitalization HX: -AORTIC VALVE REPLACEMENT FOR BUCUSPID AORTIC VALVE, SEVERE AORTIC STENOSIS AND ANEURYSM OF ASCENDING THORACIC AORTA 12/01/2019 AT [facility] -CARDIAC ABLATIONS X 3 FOR ATRIAL FIB/FLUTTER, V-TACH--LAST ONE 02/16/[address] MEDEROS -LOOP RECORDER 2019 Surgeries: Yes (ablation-svt/a-fib, LOOP RECORDER 01/02/19,bicuspid valve replacement) Cardiac, Tonsillectomy, Valve Replacement Respiratory: No Currently Using CPAP: No Currently Using BIPAP: No Cardiac: Yes (ASCEND. THORACIC AORTIC ANEURYSM;BICUSPID AORTIC VALVE;AFIB/RVR;V-TACH;SVT ) Aneurysm, Atrial Fibrillation, Heart Murmur, High Cholesterol, Hypertension, Irregular Heartbeat, Palpitations, Valvular Heart Disease Neurological: Yes Headaches /Migraines Genitourinary: No Gastrointestinal: No Musculoskeletal: Yes Chronic Back Pain Endocrine: Yes (OBESITY) HEENT: No Cancer: No Psychosocial: No Integumentary: No Blood Disorders: No Adverse Reaction/Blood Tranf: No Family Medical History Hypertension SOCIAL HISTORY: -SMOKES UP TO 2 1/2 PPD, CUTTING DOWN TO 1/2 PPD -ETOH--OCCASIONAL USE -DRUGS--SMOKES MARIJUANA DAILY. PAST SURGICAL HISTORY: -TONSILLECTOMY -MULTIPLE CARDIOVERSIONS FOR ATRIAL FIB/FLUTTER WITH RVR/SVT -CARDIAC ABLATIONS X 3--LAST ONE 02/16/[address] MEDEROS -LOOP RECORDER PLACEMENT 01/02/2019 -CARDIAC CATHS--LAST ONE HERE 11/27/19, PRIOR TO AORTIC VALVE REPLACEMENT--NO INTERVENTION, NORMAL CORONARY ARTERIES, SEVERE AORTIC STENOSIS AND ASCENDING THORACIC AORTA ANEURYSM. -MECHANICAL AORTIC VALVE REPLACEMENT 12/01/19 AT [facility] Physical Exam Vital Signs Vital Signs - First Documented 06/29/21 15:40 Temp 36.1 Pulse 90 Resp 18 B/P (MAP) 122/90 (101) Capillary Refill : Less Than 3 Seconds Height, Weight, BMI Height: 5'11.00" Weight: 308lbs. 0.0oz. 139.700486mh; 44.00 BMI Method:Stated General Appearance: No Apparent Distress, WD/WN, Obese, Other (HOLDING MID AND LEFT CHEST) Neck: Normal Inspection Respiratory: Normal Breath Sounds, No Accessory Muscle Use, No Respiratory Distress Cardiovascular: Regular Rate, Rhythm, No Edema, No JVD, No Murmur Gastrointestinal: Non Tender, Soft Extremity: Normal Capillary Refill, Normal Inspection, Normal Range of Motion, Non Tender, No Calf Tenderness, No Pedal Edema Neurologic/Psychiatric: Alert, Oriented x3, No Motor/Sensory Deficits, Normal Mood/Affect, camera mechanic II-XII Norm as Tested Skin: Normal Color, Warm/Dry Progress/Results/Core Measures Results/Orders Lab Results Laboratory Tests Test 06/29/21 15:48 06/29/21 15:58 Range/Units White Blood Count 8.8 4.3-11.0 10^3/uL Red Blood Count 5.49 4.30-5.52 10^6/uL Hemoglobin 16.5 13.3-17.7 g/dL Hematocrit 47 40-54 % Mean Corpuscular Volume 85 80-99 fL Mean Corpuscular Hemoglobin 30 25-34 pg Mean Corpuscular Hemoglobin Concent 35 32-36 g/dL Red Cell Distribution Width 12.2 10.0-14.5 % Platelet Count 222 130-400 10^3/uL Mean Platelet Volume 9.8 9.0-12.2 fL Immature Granulocyte % (Auto) 1 % Neutrophils (%) (Auto) 60 42-75 % Lymphocytes (%) (Auto) 29 12-44 % Monocytes (%) (Auto) 7 0-12 % Eosinophils (%) (Auto) 3 0-10 % Basophils (%) (Auto) 1 0-10 % Neutrophils # (Auto) 5.3 1.8-7.8 10^3/uL Lymphocytes # (Auto) 2.6 1.0-4.0 10^3/uL Monocytes # (Auto) 0.6 0.0-1.0 10^3/uL Eosinophils # (Auto) 0.3 0.0-0.3 10^3/uL Basophils # (Auto) 0.1 0.0-0.1 10^3/uL Immature Granulocyte # (Auto) 0.0 0.0-0.1 10^3/uL Prothrombin Time 22.2 H 12.2-14.7 SEC INR Comment 1.9 H 0.8-1.4 Activated Partial Thromboplast Time 40 H 24-35 SEC Sodium Level 138 135-145 MMOL/L Potassium Level 3.8 3.6-5.0 MMOL/L Chloride Level 103 98-107 MMOL/L Carbon Dioxide Level 25 21-32 MMOL/L Anion Gap 10 5-14 MMOL/L Blood Urea Nitrogen 12 7-18 MG/DL Creatinine 0.88 0.60-1.30 MG/DL Estimat Glomerular Filtration Rate 100 BUN/Creatinine Ratio 14 Glucose Level 112 H 70-105 MG/DL Calcium Level 9.8 8.5-10.1 MG/DL Corrected Calcium 9.4 8.5-10.1 MG/DL Magnesium Level 1.9 1.6-2.4 MG/DL Total Bilirubin 0.6 0.1-1.0 MG/DL Aspartate Amino Transf (AST/SGOT) 29 5-34 U/L Alanine Aminotransferase (ALT/SGPT) 36 0-55 U/L Alkaline Phosphatase 72 40-136 U/L Total Creatine Kinase 411 H 30-200 U/L Creatine Kinase MB 4.1 <6.6 NG/ML Myoglobin 74.8 10.0-92.0 NG/ML Troponin I < 0.028 <0.028 NG/ML B-Type Natriuretic Peptide 10.9 <100.0 PG/ML Total Protein 7.6 6.4-8.2 GM/DL Albumin 4.5 3.2-4.5 GM/DL Amylase Level 39 25-125 U/L Lipase 54 8-78 U/L Urine Color YELLOW Urine Clarity CLEAR Urine pH 7.0 5-9 Urine Specific [place] 1.020 1.016-1.022 Urine Protein NEGATIVE NEGATIVE Urine Glucose (UA) NEGATIVE NEGATIVE Urine Ketones NEGATIVE NEGATIVE Urine Nitrite NEGATIVE NEGATIVE Urine Bilirubin NEGATIVE NEGATIVE Urine Urobilinogen 0.2 < = 1.0 MG/DL Urine Leukocyte Esterase NEGATIVE NEGATIVE Urine RBC (Auto) TRACE-I H NEGATIVE Urine RBC RARE /HPF Urine WBC NONE /HPF Urine Crystals PRESENT H /LPF Urine Amorphous Sediment MOD MARISOL PHOSPHATE H /LPF Urine Bacteria NEGATIVE /HPF Urine Casts NONE /LPF Urine Mucus NEGATIVE /LPF Urine Culture Indicated NO Urine Opiates Screen NEGATIVE NEGATIVE Urine Oxycodone Screen NEGATIVE NEGATIVE Urine Methadone Screen NEGATIVE NEGATIVE Urine Propoxyphene Screen NEGATIVE NEGATIVE Urine Barbiturates Screen NEGATIVE NEGATIVE Ur Tricyclic Antidepressants Screen NEGATIVE NEGATIVE Urine Phencyclidine Screen NEGATIVE NEGATIVE Urine Amphetamines Screen NEGATIVE NEGATIVE Urine Methamphetamines Screen NEGATIVE NEGATIVE Urine Benzodiazepines Screen NEGATIVE NEGATIVE Urine Cocaine Screen NEGATIVE NEGATIVE Urine Cannabinoids Screen POSITIVE H NEGATIVE My Orders Orders - DAVE DWYER DO Ed Iv/Invasive Line Start (06/29/21 15:47) Ekg Tracing (06/29/21 15:47) O2 (06/29/21 15:47) Monitor-Rhythm Ecg Trace Only (06/29/21 15:47) Chest 1 View, Ap/Pa Only (06/29/21 15:47) Amylase (06/29/21 15:47) BNP (06/29/21 15:47) Cbc With Automated Diff (06/29/21 15:47) Comprehensive Metabolic Panel (06/29/21 15:47) Creatine Kinase (06/29/21 15:47) Creatine Kinase Mb (06/29/21 15:47) Drug Screen Stat (Urine) (06/29/21 15:47) Lipase (06/29/21 15:47) Magnesium (06/29/21 15:47) Protime With Inr (06/29/21 15:47) Partial Thromboplastin Time (06/29/21 15:47) Ua Culture If Indicated (06/29/21 15:47) Myoglobin Serum (06/29/21 15:47) Troponin I (06/29/21 15:47) Lipid Panel (06/30/21 06:00) Nitroglycerin 0.4 Mg Btl 25's (Nitrostat (06/29/21 16:00) Aspirin Chewable Tablet (Baby Aspirin Ch (06/29/21 16:00) Aspirin Chewable Tablet (Baby Aspirin Ch (06/29/21 15:48) Nitroglycerin 0.4 Mg Btl 25's (Nitrostat (06/29/21 15:48) Medications Given in ED Current Medications Medications Dose Ordered Sig/Helder Route Start Time Stop Time Status Last Admin Dose Admin Aspirin 324 mg ONCE ONCE PO 06/29/21 16:00 06/29/21 16:01 DC 06/29/21 15:50 324 MG Nitroglycerin 0.4 mg UD PRN SL 06/29/21 16:00 06/29/21 15:52 0.4 MG Vital Signs/I&O 10/27/21 15:40 Temp 36.1 Pulse 90 Resp 18 B/P (MAP) 122/90 (101) Blood Pressure Mean: 101 Progress Progress Note : Progress Note GIVEN ASPIRIN AND NTG X 1 WITH SLIGHT RELIEF, BUT DECLINED ANY MORE--STATES HE FEELS LIGHTHEADED, BUT NO DROP IN BP WITH NTG. NO DETERIORATION IN PT'S CONDITION DURING ER STAY Initial ECG Impression Date: Jun 29, 2021 Initial ECG Impression Time: 15:45 Initial ECG Rate: 89 Initial ECG Rhythm: Normal Sinus Diagnostic Imaging Comments CXR--PER RADIOLOGIST REPORT AT 1613 The heart size is within normal limits and stable when compared to 12/30/2020. The sternotomy wires and surgical clips in the loop recorder device seen previously are again visualized and no different. The lungs remain clear. There is still no sign of failure, pneumonia or pleural effusion to indicate an acute abnormality. The mediastinum is not widened. The osseous structures are intact. Impression: There is evidence of prior cardiac surgery but there is no sign of an acute cardiopulmonary abnormality. Departure Communication (Admissions) 1635--SPOKE WITH DR. SAINI, ACCEPTS PT FOR ADMIT 1637--SPOKE WITH DR. LIND, FOR CARDIOLOGY CONSULT Impression Primary Impression: Chest pain Additional Impressions: Aortic valve replaced HX OF ATRIAL FIB/FLUTTER--S/P ABLATION Obesity HTN (hypertension) Cigarette smoker Cannabis dependence, daily use Disposition: ADMITTED INPATIENT Condition: Stable Admissions Decision to Admit Reason: Admit from ER (General) Decision to Admit/Date: Jun 29, 2021 Time/Decision to Admit Time: 16:35 Departure-Patient Inst. Referrals: [facility]/JENNIFER (PCP) Primary Care Physician YESSENIA HARDING APRN (Family) Primary Care Physician DAVE DWYER DO Jun 29, 2021 16:13
[2021-06-29 16:14] LABS: AMORPHOUS SEDIMENT,UR MOD AMOR PHOSPHATE /LPF; BACTERIA,URINE NEGATIVE /HPF; RBC,URINE RARE /HPF
[2021-06-29 16:18] LABS: AMPHETAMINE SCREEN, URINE NEGATIVE (NEGATIVE); BARBITURATE SCREEN URINE NEGATIVE (NEGATIVE); BENZODIAZEPINES SCREEN URINE NEGATIVE (NEGATIVE); CANNABINOID SCREEN, URINE POSITIVE (NEGATIVE); COCAINE SCREEN URINE NEGATIVE (NEGATIVE); METHADONE STAT NEGATIVE (NEGATIVE); METHAMPHETAMINE SCREEN URINE S NEGATIVE (NEGATIVE); OPIATE SCREEN URINE NEGATIVE (NEGATIVE); OXYCODONE STAT NEGATIVE (NEGATIVE); PROPOXYPHENE STAT NEGATIVE (NEGATIVE); TRICYCLIC ANTIDEPRESSANTS SCRE NEGATIVE (NEGATIVE)
[2021-06-29 16:20] LABS: CREATINE KINASE MB 4.1 NG/ML (<6.6)
[2021-06-29] MEDS ORDERED: ONDANSETRON 4 MG/2 ML (SDV) Z0FRAN IVP PRN (18:00)
[2021-06-29] MEDS ORDERED: morphine INJ 4 MG/ML 1 ML (VIAL/SYRINGE) IV PRN (18:00)
[2021-06-29] MEDS ORDERED: CATHETER FLUSH 10 ML SYR IV PRN (18:00)
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
[2021-06-29] MEDS ORDERED: HYDROcodone/APAP 5 MG/325 MG (LORTAB) TAB PO PRN (21:00)
[2021-06-29] MEDS ORDERED: meTOprolol SUCCINATE 100 MG (TOPROL XL) TAB PO SCH (21:30)
[2021-06-29] MEDS ORDERED: dilTIAZem120 MG (CARDIZEM CD) CAP PO SCH (21:30)
[2021-06-29] MEDS ORDERED: warFARin 10 MG (COUMADIN) TAB PO SCH (21:30)
[2021-06-29] MEDS: CATHETER FLUSH 10 ML SYR IV SCH (21:44)
[2021-06-30] VITALS: BP 91/57
[2021-06-30 04:00] VITALS: BP 128/66
[2021-06-30 04:52] LABS: BASOPHILS % (AUTO) 1 % (0-10); EOSINOPHILS # (AUTO) 0.3 10^3/uL (0.0-0.3); EOSINOPHILS % (AUTO) 4 % (0-10); HEMATOCRIT 46 % (40-54); HEMOGLOBIN 15.8 g/dL (13.3-17.7); LYMPHOCYTES # (AUTO) 2.9 10^3/uL (1.0-4.0); LYMPHOCYTES % (AUTO) 33 % (12-44); MEAN CORPUSCULAR HEMOGLOBIN 30 pg (25-34); MEAN CORPUSCULAR HGB CONC 34 g/dL (32-36); MEAN CORPUSCULAR VOLUME 86 fL (80-99); MEAN PLATELET VOLUME 9.9 fL (9.0-12.2); MONOCYTES # (AUTO) 0.6 10^3/uL (0.0-1.0); MONOCYTES % (AUTO) 7 % (0-12); NEUTROPHILS # (AUTO) 4.8 10^3/uL (1.8-7.8); NEUTROPHILS % (AUTO) 55 % (42-75); PLATELET COUNT 215 10^3/uL (130-400); WHITE BLOOD COUNT 8.7 10^3/uL (4.3-11.0)
[2021-06-30 05:07] LABS: POTASSIUM 4.4 MMOL/L (3.6-5.0)
[2021-06-30 05:08] LABS: CALCIUM 9.2 MG/DL (8.5-10.1)
[2021-06-30 05:13] LABS: CREATININE SERUM 0.81 MG/DL (0.60-1.30)
[2021-06-30] MEDS: CATHETER FLUSH 10 ML SYR IV SCH (06:54)
[2021-06-30 08:00] VITALS: BP 104/56
[2021-06-30] MEDS ORDERED: ASPIRIN E.C. 81 MG (ECOTRIN) TAB PO SCH (09:00)
[2021-06-30] MEDS ORDERED: ATOR40TA70 PO (11:39)
[2021-06-30 12:00] VITALS: BP 112/56
--- NOTE | 2021-06-30 12:05 | Consultation-Cardiology ---
HPI-Cardiology Cardiology Consultation: Date of Consultation 06/30/2021 Date of Admission 06/29/2020 Attending Physician Mook Saini MD Admitting Physician [facility] Consulting Physician JOSÉ MANUEL LIND JR, MD HPI: Time Seen by a Provider: 12:40 Chief Complaint: Reason for consultation: Chest pain. I had the pleasure of seeing Carlos in the intensive care unit at [facility] in [place], [place] today. He has a history of aortic stenosis due to a bicuspid aortic valve with a mechanical aortic valve replacement in 2019. 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 Ever since his open heart surgery, he has had some fleeting, sharp chest pains. Usually these last less than a minute. They are not usually severe. He has never really thought much of these. However, yesterday he was developing more severe, sharp substernal chest discomfort. These were lasting longer than in the past. At times he would feel lightheaded but denies syncope. He was also having some tingling in his right forearm and hand. This would seem to be brought on by exertion and would improve with rest. He may have had some slight shortness of breath with the chest discomfort. The symptoms made him concerned and he came to the hospital for further evaluation. He has also been having issues with getting his INR at the appropriate level. He is trying to work with a new primary provider to get this under control. He denies palpitations, paroxysmal nocturnal dyspnea, orthopnea, or lower extremity edema. He smokes cigarettes and occasionally marijuana. He denies cocaine or methamphetamine use. Certain portions of this document may have been dictated utilizing voice recognition technology. Inherent to this technology, typographical and grammatical errors may exist. As much as I am diligent to identify and correct these mistakes, some errors may remain in the document. Review of Systems-Cardiology Review of Systems Other comments Review of 10 organ systems is as per the history of present illness, otherwise negative. [id number]-Lmobfg Hx Patient Social History Marrital Status: Smoking Status: Current Everyday Smoker 2nd Hand Smoke Exposure: No Have you traveled recently?: No Alcohol Use?: Yes Substance type: Marijuana Pt feels they are or have been: No Tobacco type used: Cigarettes Immunizations Up To Date Tetanus Booster (TDap): Less than 5yrs Date of Influenza Vaccine: Jun 03, 2019 Past Medical History PMH As described under Assessment. Family Medical History Family Medical History: The patient does not know of any family history of premature coronary artery disease in first-degree relatives. Allergies and Home Medications Allergies Coded Allergies: hydrocodone (Verified Allergy, Unknown, itching, 02/19/20) Patient Home Medication List Home Medication List Reviewed: Yes Aspirin (Aspirin EC) 81 Mg Tablet.dr, 81 MG PO DAILY Prescribed by: MOOK SAINI on 06/30/21 1501 Atorvastatin Calcium (Atorvastatin Calcium) 40 Mg Tablet, 40 MG PO HS, (Reported) Entered as Reported by: ZAHRA DURBIN on 06/30/21 113 Last Action: Reviewed Diltiazem HCl (Diltiazem 24Hr ER) 120 Mg Cap.er.24h, 120 MG PO HS, (Reported) Entered as Reported by: ZAHRA DURBIN on 07/16/20908 Last Action: Reviewed Metoprolol Succinate (Metoprolol Succinate) 200 Mg Tab.er.24h, 200 MG PO HS, (Reported) Entered as Reported by: ZAHRA DURBIN on 12/22/19 113 Last Action: Reviewed Warfarin Sodium (Warfarin Sodium) 10 Mg Tablet, 5 MG PO MON,FRI, (Reported) Entered as Reported by: ZAHRA DURBIN on 07/16/20910 Last Action: Reviewed Warfarin Sodium (Warfarin Sodium) 10 Mg Tablet, 10 MG PO SARABIA,,WE,TH,SAT, (Reported) Entered as Reported by: ZAHRA DURBIN on 07/16/20910 Last Action: Reviewed Discontinued Medications Amoxicillin/Potassium Clav (Augmentin 500-125 Tablet) 1 Each Tablet, 1 EACH PO Q8H Discontinued Reason: No Longer Taking Prescribed by: JACOBO DAS on 07/17/20 1145 Last Action: Discontinued Baclofen (Baclofen) 10 Mg Tablet, 10 MG PO TID PRN for MUSCLE SPASMS Discontinued Reason: No Longer Taking Prescribed by: YOVANI BRONSON on 05/14/21 2315 Last Action: Discontinued Nicotine (Nicotine Patch) 1 Each Patch.td24, 1 PATCH TD DAILY, (Reported) Discontinued Reason: No Longer Taking Entered as Reported by: ZAHRA DURBIN on 07/16/20908 Last Action: Discontinued Oxycodone HCl/Acetaminophen (Percocet 7.5-325 mg Tablet) 1 Each Tablet, 1 EACH PO Q4H PRN for PAIN-MODERATE (5-7) Discontinued Reason: No Longer Taking Prescribed by: JACOBO DAS on 07/17/20 1145 Last Action: Discontinued Exam Vital Signs Vital Signs Date Time Temp Pulse Resp B/P (MAP) Pulse Ox O2 Delivery O2 Flow Rate FiO2 06/30/21 16:00 06/30/21 13:00 58 06/30/21 12:00 17 97 Room Air 06/30/21 12:00 36.3 Physical Exam General: Alert. No acute distress. Well nourished and appears stated age. He is obese. Eye: Extraocular movements are intact. Conjunctivae are clear. There are no xanthelasma. HENT: Normocephalic. Atraumatic. Carotid pulsations 2/2 without bruits. Neck: Jugular venous pressure does not appear elevated. No thyromegaly appreciated. Respiratory: Lungs are clear to auscultation. Respirations are non-labored. Breath sounds are equal. Symmetrical chest wall expansion. Cardiovascular: Normal rate. Regular rhythm. Mechanical S2 with 2/6 systolic ejection murmur. No gallop. Point of maximal impulse is not appear displaced. Good pulses equal in all extremities. No edema. Gastrointestinal: Soft. Normal bowel sounds. Skin: Skin turgor is normal. There is no pallor. Musculoskeletal: No kyphosis or scoliosis appreciated. Neurologic: Alert and oriented to person, place, time. Cranial nerves 3-12 appear grossly intact. The patient has good motor tone strength in the upper and lower extremities bilaterally. Psychiatric: Cooperative. Appropriate mood & affect. Labs Laboratory Tests Test 06/30/21 04:20 Range/Units White Blood Count 8.7 4.3-11.0 10^3/uL Red Blood Count 5.35 4.30-5.52 10^6/uL Hemoglobin 15.8 13.3-17.7 g/dL Hematocrit 46 40-54 % Mean Corpuscular Volume 86 80-99 fL Mean Corpuscular Hemoglobin 30 25-34 pg Mean Corpuscular Hemoglobin Concent 34 32-36 g/dL Red Cell Distribution Width 12.5 10.0-14.5 % Platelet Count 215 130-400 10^3/uL Mean Platelet Volume 9.9 9.0-12.2 fL Immature Granulocyte % (Auto) 1 % Neutrophils (%) (Auto) 55 42-75 % Lymphocytes (%) (Auto) 33 12-44 % Monocytes (%) (Auto) 7 0-12 % Eosinophils (%) (Auto) 4 0-10 % Basophils (%) (Auto) 1 0-10 % Neutrophils # (Auto) 4.8 1.8-7.8 10^3/uL Lymphocytes # (Auto) 2.9 1.0-4.0 10^3/uL Monocytes # (Auto) 0.6 0.0-1.0 10^3/uL Eosinophils # (Auto) 0.3 0.0-0.3 10^3/uL Basophils # (Auto) 0.0 0.0-0.1 10^3/uL Immature Granulocyte # (Auto) 0.1 0.0-0.1 10^3/uL Sodium Level 139 135-145 MMOL/L Potassium Level 4.4 3.6-5.0 MMOL/L Chloride Level 105 98-107 MMOL/L Carbon Dioxide Level 22 21-32 MMOL/L Anion Gap 12 5-14 MMOL/L Blood Urea Nitrogen 12 7-18 MG/DL Creatinine 0.81 0.60-1.30 MG/DL Estimat Glomerular Filtration Rate 110 BUN/Creatinine Ratio 15 Glucose Level 97 70-105 MG/DL Calcium Level 9.2 8.5-10.1 MG/DL Triglycerides Level 110 <150 MG/DL Cholesterol Level 121 < 200 MG/DL LDL Cholesterol Direct 77 1-129 MG/DL VLDL Cholesterol 22 5-40 MG/DL HDL Cholesterol 30 L 40-60 MG/DL Radiology ECHOCARDIOGRAM (06/30/2021): 1. This is a technically difficult study due to poor image quality. 2. Left ventricle: The cavity size is normal. There is moderate concentric hypertrophy. Systolic function is normal. The estimated ejection fraction is 65- 70%. There are no regional wall motion abnormalities identified on this technically difficult study. Left ventricular diastolic function parameters are normal. 3. Right ventricle: The right ventricle is severely dilated measuring 4.3 cm mid cavity. Systolic function is normal. TAPSE 2 cm. 4. Left atrium: The left atrium is mildly to moderately dilated with a volume index ranging from 34-45 mL/m. 5. Right atrium: The right atrium is moderately dilated with an area of 26 cm. 6. Aortic valve: The aortic valve is replaced with a mechanical prosthesis which is not well visualized but has a mean gradient of 12 mmHg, a peak gradient of 20 mmHg and a peak velocity of 2.3 m/s which are acceptable. 7. Inferior vena cava: The vessel is dilated. The respirophasic diameter changes are in the normal range (greater than or equal to 50%). 8. Pulmonary arteries: The pulmonary artery pressure cannot be estimated on this study due to inadequate tricuspid regurgitant envelope. ECG Impression ECG Comment Sinus rhythm with left atrial abnormality and nonspecific intraventricular conduction delay. Diagnosis/Problems Diagnosis/Problems (1) Chest pain Assessment & Plan: Exact etiology unclear. He had negative troponin levels. His discomfort has now improved without any specific treatment. His CT angiogram of the chest did not show any evidence of thoracic aortic dissection. I suspect his chest pain was noncardiac, possibly due to musculoskeletal strain. From a cardiac standpoint, he can be discharged home. I recommend he follow-up with me in our office in 1 month's time. (2) Aortic stenosis Assessment & Plan: He has mechanical aortic valve replacement that appeared to be functioning normally on his echocardiogram. He needs to get better control of his warfarin to reduce the risk of acute valve thrombosis from low INR levels or hemorrhagic side effects from elevated INR levels. (3) Thoracic aortic aneurysm without rupture Assessment & Plan: He has a known thoracic aortic aneurysm however, his CT angiogram of the chest did not show any evidence of dissection. This will need to be followed in the long-term. (4) Typical atrial flutter Assessment & Plan: He had a previous atrial flutter ablation. There have been no signs of recurrent atrial flutter during this admission (5) Supraventricular tachycardia Assessment & Plan: He also had a previous ablation for supraventricular tachycardia and there have been no signs of recurrence. Continue diltiazem and beta-shreyas. (6) Primary hypertension Assessment & Plan: Continue diltiazem and metoprolol. (7) Mixed hyperlipidemia Assessment & Plan: Continue statin medication. (8) Cigarette smoker Assessment & Plan: He needs to quit smoking. Smoking cessation was strongly encouraged. (9) Morbid obesity JOSÉ MANUEL LIND JR, MD Jun 30, 2021 12:04
[2021-06-30] MEDS ORDERED: HOLD METFORMIN - RECEIVED CONTRAST 20 ML VIAL IV SCH (12:45)
[2021-06-30] MEDS ORDERED: IOHEXOL 350 MG/ML 100 ML (OMNIPAQUE 350) VIAL IV ONE (12:45)
[2021-06-30] MEDS ORDERED: NS 100 ML (IVPB) BAG IV ONE (12:45)
--- NOTE | 2021-06-30 13:38 | Diagnostic Imaging Report ---
PROCEDURE: CT angiography of the chest with contrast. TECHNIQUE: Multiple contiguous axial images were obtained through the chest after uneventful bolus administration of intravenous contrast. 3D reconstructed CTA MIP acquisitions were also performed. Auto Exposure Controls were utilized during the CT exam to meet ALARA standards for radiation dose reduction. INDICATION: Chest pain. FINDINGS: The previous CTA chest exam performed on 07/12/2019 noted a stable appearing ascending thoracic aortic aneurysm. The aorta measured approximately 4.7 cm in maximum transverse diameter. On this exam, the aneurysm is again identified and does not appear to have changed significantly. There is a vague linear area of diminished density extending through the posterior aspect of the mid thoracic aorta (image 58/160). There are similar-appearing areas on the coronal and sagittal reconstructed images (images 42/90 and 110/240). This appears to be related to artifact secondary to contrast in the superior vena cava and not to a dissection. The descending thoracic aorta is normal in caliber. In the interval since the prior study, the patient has undergone a surgical procedure. There are now sternotomy wires and surgical clips evident as well as an aortic valvular prosthesis. The heart is stable in size when compared to the prior exam. There are no coronary artery calcifications noted. The pulmonary arteries were not fully opacified and consequently difficult to assess for a pulmonary embolus. There is no evidence for a defect within the pulmonary arteries to indicate a pulmonary embolus. There is a tiny drop of gas in the main pulmonary artery. Most likely, this is related to the injection of the contrast. The lungs are generally clear. There is no evidence for failure, pneumonia, or for a pleural effusion. There is no mediastinal or hilar adenopathy. The right lobe of the thyroid is unremarkable. The left lobe is quite small. The appearance of the thyroid gland is similar to the prior study, however. The sections through the upper abdomen fail to show any sign of an acute abnormality. The liver is of lower density than usually seen. This does suggest fatty metamorphosis. The bone windows show no sign of a fracture or of a destructive lesion. The loop recorder device in the soft tissues of the left thorax seen previously is again visualized and no different. IMPRESSION: 1. There has been interval cardiac surgical procedure, and there is now an aortic valvular prosthesis in place. 2. The aneurysmal dilatation of the ascending aorta seen previously is again evident and does not appear to have changed significantly. The aorta continues to measure approximately 4.7 cm in maximum transverse diameter. There is no sign of an acute abnormality of the aorta. In particular, there is no evidence for a dissection. 3. There is no acute cardiopulmonary abnormality noted otherwise. Dictated by: Dictated on workstation # [id number]
--- NOTE | 2021-06-30 14:56 | Short Stay Summary ---
HPI History of Present Illness: 35 yo M that presented to ER with chest pain that would not go away. Patient has a h/o bicuspid valve s/p replacement. States that he can feel some chest pain regularlly but it generally goes away. Patient was following with a inhalation therapy aides teacher in [place] and then he retired and he has not yet established with a new cardiol ogist. He is maintained on coumadin. Denies any blood in stool or urine. He states that pain is gone this AM. Denies any palpitations. Source: patient Exam Limitations: no limitations Date seen by provider: Jun 30, 2021 Time Seen by Provider: 10:00 Attending Physician Mook Puga MD [facility] Consult Date of Admission Jun 29, 2021 at 16:35 Home Medications Home Medications Reviewed patient Home Medication Reconciliation performed by pharmacy medication reconciliations [place] technician and/or nursing. Patients Allergies have been reviewed. Allergies Coded Allergies: hydrocodone (Verified Allergy, Unknown, itching, 02/19/20) WLL-Mcsqrf-Pxphlf Hx Patient Social History Marrital Status: Drug of Choice: THC, MARIJUANA Smoking Status: Current Everyday Smoker 2nd Hand Smoke Exposure: No Recent Hopitalizations: No Alcohol Use?: Yes Substance type: Marijuana Tobacco type used: Cigarettes Have you traveled recently?: No Immunizations Up To Date Tetanus Booster (TDap): Less than 5yrs Date of Influenza Vaccine: Jun 03, 2019 Past Medical History PMHx: Cardiac valve replacement Chronic anticoagulation Abnormal heart rhythm SurgHx: -TONSILLECTOMY -MULTIPLE CARDIOVERSIONS FOR ATRIAL FIBRILLATION/RVR -CARDIAC ABLATIONS FOR ATRIAL FIBRILLATION/RVR -SVT. -LOOP RECORDER PLACEMENT 01/02/2019 -CARDIAC CATHS--LAST ONE HERE 11/27/19, PRIOR TO VALVE REPLACEMENT--NO INTERVENTION, NORMAL CORONARIES, SEVERE AORTIC VALVE STENOSIS AND ASCENDING THORACIC AORTIC ANEURYSM -12/01/19--MECHANICAL AORTIC VALVE REPLACEMENT AT [facility] IN [place]. Family Medical History Significant Family History: Hypertension Other Significan Family Hx: SOCIAL HISTORY: -SMOKES UP TO 2 1/2 PPD, CUTTING DOWN TO 1/2 PPD -ETOH--OCCASIONAL USE -DRUGS--SMOKES MARIJUANA DAILY. PAST SURGICAL HISTORY: -TONSILLECTOMY -MULTIPLE CARDIOVERSIONS FOR ATRIAL FIB/FLUTTER WITH RVR/SVT -CARDIAC ABLATIONS X 3--LAST ONE 02/16/[address] MEDEROS -LOOP RECORDER PLACEMENT 01/02/2019 -CARDIAC CATHS--LAST ONE HERE 11/27/19, PRIOR TO AORTIC VALVE REPLACEMENT--NO INTERVENTION, NORMAL CORONARY ARTERIES, SEVERE AORTIC STENOSIS AND ASCENDING THORACIC AORTA ANEURYSM. -MECHANICAL AORTIC VALVE REPLACEMENT 12/01/19 AT [facility] Review of Systems ([facility]) Constitutional: no symptoms reported; No chills, No fever, No weakness EENTM: no symptoms reported Respiratory: no symptoms reported; No cough, No dyspnea on exertion, No short of breath Cardiovascular: chest pain; No edema, No palpitations Gastrointestinal: no symptoms reported; No abdominal pain, No constipation, No diarrhea, No nausea, No vomiting Genitourinary: no symptoms reported; No dysuria, No frequency, No hematuria Musculoskeletal: no symptoms reported; No back pain, No joint pain, No muscle pain Skin: no symptoms reported; No lesions, No rash Psychiatric/Neurological: No Symptoms Reported Reviewed Test Results Reviewed Test Results Lab Laboratory Tests Test 06/30/21 04:20 Range/Units White Blood Count 8.7 4.3-11.0 10^3/uL Red Blood Count 5.35 4.30-5.52 10^6/uL Hemoglobin 15.8 13.3-17.7 g/dL Hematocrit 46 40-54 % Mean Corpuscular Volume 86 80-99 fL Mean Corpuscular Hemoglobin 30 25-34 pg Mean Corpuscular Hemoglobin Concent 34 32-36 g/dL Red Cell Distribution Width 12.5 10.0-14.5 % Platelet Count 215 130-400 10^3/uL Mean Platelet Volume 9.9 9.0-12.2 fL Immature Granulocyte % (Auto) 1 % Neutrophils (%) (Auto) 55 42-75 % Lymphocytes (%) (Auto) 33 12-44 % Monocytes (%) (Auto) 7 0-12 % Eosinophils (%) (Auto) 4 0-10 % Basophils (%) (Auto) 1 0-10 % Neutrophils # (Auto) 4.8 1.8-7.8 10^3/uL Lymphocytes # (Auto) 2.9 1.0-4.0 10^3/uL Monocytes # (Auto) 0.6 0.0-1.0 10^3/uL Eosinophils # (Auto) 0.3 0.0-0.3 10^3/uL Basophils # (Auto) 0.0 0.0-0.1 10^3/uL Immature Granulocyte # (Auto) 0.1 0.0-0.1 10^3/uL Sodium Level 139 135-145 MMOL/L Potassium Level 4.4 3.6-5.0 MMOL/L Chloride Level 105 98-107 MMOL/L Carbon Dioxide Level 22 21-32 MMOL/L Anion Gap 12 5-14 MMOL/L Blood Urea Nitrogen 12 7-18 MG/DL Creatinine 0.81 0.60-1.30 MG/DL Estimat Glomerular Filtration Rate 110 BUN/Creatinine Ratio 15 Glucose Level 97 70-105 MG/DL Calcium Level 9.2 8.5-10.1 MG/DL Triglycerides Level 110 <150 MG/DL Cholesterol Level 121 < 200 MG/DL LDL Cholesterol Direct 77 1-129 MG/DL VLDL Cholesterol 22 5-40 MG/DL HDL Cholesterol 30 L 40-60 MG/DL Physical Exam-([facility]) Physical Exam Vital Signs VS - Last 72 Hours, by Label 06/29/21 06/29/21 06/29/21 06/29/21 15:40 17:30 17:31 17:45 Temp 36.1 Pulse 90 65 Resp 18 18 B/P (MAP) 122/90 (101) 120/81 (94) 114/69 Pulse Ox 98 O2 Delivery Room Air Room Air Room Air 06/29/21 06/29/21 06/29/21 06/29/21 17:45 18:00 19:00 19:00 Pulse 68 78 78 78 Resp 9 8 22 B/P (MAP) 126/83 (97) 122/74 (90) 128/82 (97) Pulse Ox 97 96 96 O2 Delivery Room Air Room Air Room Air 06/29/21 06/29/21 06/29/21 06/29/21 19:32 20:00 20:00 21:00 Temp 35.4 Pulse 76 81 Resp 21 22 B/P (MAP) 128/66 (86) 109/77 (88) Pulse Ox 94 95 O2 Delivery Room Air Room Air Room Air 06/29/21 06/30/21 06/30/21 06/30/21 22:00 00:00 00:00 01:00 Pulse 80 73 76 Resp 16 17 B/P (MAP) 125/80 (95) 91/57 (68) Pulse Ox 92 92 O2 Delivery Room Air Room Air Room Air 06/30/21 06/30/21 06/30/21 06/30/21 04:00 04:00 07:00 08:00 Pulse 64 67 64 Resp 21 12 B/P (MAP) 128/66 (86) 104/56 (72) Pulse Ox 90 95 O2 Delivery Room Air Room Air Room Air 06/30/21 06/30/21 06/30/21 06/30/21 08:19 08:52 12:00 13:00 Temp 36.5 36.3 Pulse 58 O2 Delivery Room Air Capillary Refill : Less Than 3 Seconds General Appearance: WD/WN, no apparent distress HEENT: PERRL/EOMI Neck: non-tender, full range of motion, supple Respiratory: chest non-tender, lungs clear, normal breath sounds, no respiratory distress, no accessory muscle use Cardiovascular: normal peripheral pulses, regular rate, rhythm, no edema, no murmur Gastrointestinal: normal bowel sounds, non tender, soft Back: no CVA tenderness, no vertebral tenderness Extremities: normal range of motion, non-tender, normal inspection, no pedal edema, no calf tenderness, normal capillary refill 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, no motor/sensory deficits, alert, normal mood/affect, oriented x 3 Skin: normal color, warm/dry Short Stay Diagnosis Discharge Diagnosis-Short Stay Admission Diagnosis Atypical Chest pain Thoracic Aortic Aneurysm Atrial Flutter h/o Aortic Valve replacement HLD Final Discharge Diagnosis See Above Conclusion Plan 35 yo M with extensive cardiac history and chest pain Atypical Chest pain - Cardiology consulted, CE neg, Patient to establish with new inhalation therapy aides teacher Problem List (1) Chest pain (2) Aortic stenosis (3) Thoracic aortic aneurysm without rupture (4) Typical atrial flutter (5) Supraventricular tachycardia (6) Cigarette smoker (7) Morbid obesity Assessment/Plan Assessment/Plan Admission Status: Observation MOOK PUGA MD Jun 30, 2021 14:56
[2021-06-30] MEDS ORDERED: ASPI-1238 PO (15:01)
--- NOTE | 2021-06-30 15:01 | Discharge Summary ---
Discharge [facility] Reconcile Patient Problems Problems Reviewed?: Yes Discharge Medications New, Converted or Re-Newed RX: Transmitted to Pharmacy New Medications: Aspirin (Aspirin EC) 81 Mg Tablet.dr 81 MG PO DAILY, #30 TAB Continued Medications: Atorvastatin Calcium (Atorvastatin Calcium) 40 Mg Tablet 40 MG PO HS, TAB Diltiazem HCl (Diltiazem 24Hr ER) 120 Mg Cap.er.24h 120 MG PO HS, TAB Metoprolol Succinate (Metoprolol Succinate) 200 Mg Tab.er.24h 200 MG PO HS, TAB Warfarin Sodium (Warfarin Sodium) 10 Mg Tablet 5 MG PO MON,FRI, TAB TAKES OF A 10MG TAB Warfarin Sodium (Warfarin Sodium) 10 Mg Tablet 10 MG PO SARABIA,,,TH,SAT, TAB Patient Instructions Goal/Follow Up Appt: F/u with PCP 1-2 weeks Activity & Diet Discharge Diet: Cardiac Diet Activity as Tolerated: Yes MOOK SAINI MD Jun 30, 2021 15:01
[2021-07-01 13:06] LABS: PARAINFLU 1 PCR Not Detected (Not Detected); PARAINFLU 2 PCR Not Detected (Not Detected); RSV PCR TEST Not Detected (Not Detected)
[2021-07-01] MEDS ORDERED: warFARin 5 MG (COUMADIN) TAB PO SCH (18:00)
== END 2021-06-30 15:40 | disposition home or self-care (01) ==
LOC: EDUNIT# 15:38 → ER 15:40 → ICU 16:35
PROVIDERS: ADMIT Family Medicine; ATTEND Family Medicine
DX: R07.89 Other chest pain (principal); R06.02 Shortness of breath; I11.9 Hypertensive heart disease without heart failure; I48.91 Unspecified atrial fibrillation; E78.00 Pure hypercholesterolemia, unspecified; G89.29 Other chronic pain; M54.9 Dorsalgia, unspecified; F12.20 Cannabis dependence, uncomplicated; I35.0 Nonrheumatic aortic (valve) stenosis; I71.2 Thoracic aortic aneurysm, without rupture; I48.3 Typical atrial flutter; I47.1 Supraventricular tachycardia; E78.2 Mixed hyperlipidemia; E66.01 Morbid (severe) obesity due to excess calories; F17.210 Nicotine dependence, cigarettes, uncomplicated; Z95.2 Presence of prosthetic heart valve; Z79.2 Long term (current) use of antibiotics; Z79.1 Long term (current) use of non-steroidal anti-inflammatories (NSAID); Z79.891 Long term (current) use of opiate analgesic; Z79.01 Long term (current) use of anticoagulants; Z68.41 Body mass index [BMI] 40.0-44.9, adult; Z98.890 Other specified postprocedural states; Z79.899 Other long term (current) drug therapy
CPT/HCPCS: 36415; 71045; 71275; 73030; 80048; 80053; 80061; 80306; 81000; 82150; 82550; 82553; 83690; 83735; 83874; 83880; 84484; 85025; 85610; 85730; 87631; 87636; 93005; 93041; 93306

== ENCOUNTER 2021-10-16 10:04 | Emergency (ER) | payer SELFPAY ==
[~2021-10-16 10:04] MED LIST changes: +ASPI-1238 PO; +ATOR40TA70 PO; +CYCL10TA25 PO; -CYCL10TA9 PO
[2021-10-16] MEDS ORDERED: NS IV 1000 ML 1,000 ML IV STA (10:18)
--- NOTE | 2021-10-16 10:26 | ED GI ---
General Stated Complaint: HEADACHE; VOMITING Source of Information: Patient Exam Limitations: No Limitations History of Present Illness Date Seen by Provider: Oct 16, 2021 Time Seen by Provider: 10:06 Initial Comments 36-year-old male with past medical history of aortic valve replacement due to bicuspid aortic valve on chronic warfarin coming in due to almost 7 hours of nonbloody nonbilious vomiting with headache as well as general body aches. Has not taken any medications as of yet for any of this. Says he is having his typical sharp chest pain that is been going on for greater than 6 hours straight. He says he feels short of breath slightly with this. Denies being around anyone ill that he knows of. Has been vaccinated for Covid x2. Has not been sick with COVID recently that he knows of. No fevers that he knows of, abdominal pain, diarrhea, weakness, numbness, vision changes, voice changes, or any other concerns Allergies and Home Medications Allergies Coded Allergies: hydrocodone (Verified Allergy, Unknown, itching, 02/19/20) Patient Home Medication List Home Medication List Reviewed: Yes Aspirin (Aspirin EC) 81 Mg Tablet.dr, 81 MG PO DAILY Prescribed by: MOOK SAINI on 06/30/21 1501 Atorvastatin Calcium (Atorvastatin Calcium) 40 Mg Tablet, 40 MG PO HS, (Reported) Entered as Reported by: ZAHRA DURBIN on 06/30/21 1139 Diltiazem HCl (Diltiazem 24Hr ER) 120 Mg Cap.er.24h, 120 MG PO HS, (Reported) Entered as Reported by: ZAHRA DURBIN on 07/16/20 0909 Metoprolol Succinate (Metoprolol Succinate) 200 Mg Tab.er.24h, 200 MG PO HS, (Reported) Entered as Reported by: ZAHRA DURBIN on 12/22/19 1139 Ondansetron (Ondansetron Odt) 4 Mg Tab.rapdis, 4 MG PO Q6H PRN for NAUSEA/VOMITING-1ST LINE Prescribed by: REX JOLLEY on 10/16/21 1039 Warfarin Sodium (Warfarin Sodium) 10 Mg Tablet, 5 MG PO MON,FRI, (Reported) Entered as Reported by: ZAHRA DURBIN on 07/16/20 0911 Warfarin Sodium (Warfarin Sodium) 10 Mg Tablet, 10 MG PO SARABIA,TU,WE,TH,SAT, (Reported) Entered as Reported by: ZAHRA DURBIN on 07/16/20 0911 Review of Systems Review of Systems Constitutional: chills; No fever EENTM: No Blurred Vision Respiratory: Denies Cough; Shortness of Air Cardiovascular: Chest Pain Gastrointestinal: Denies Abdominal Pain, Denies Diarrhea; Nausea, Vomiting Genitourinary: No Symptoms Reported Musculoskeletal: no symptoms reported Skin: no symptoms reported Psychiatric/Neurological: No Symptoms Reported Endocrine: No Symptoms Reported Hematologic/Lymphatic: No Symptoms Reported All Other Systems Reviewed Negative Unless Noted: Yes Past Hdowtsl-Rljqwu-Jgzcja Hx Patient Social History Tobacco Use?: Yes Tobacco type used: Cigarettes Substance use?: No Alcohol Use?: No Immunizations Up To Date Tetanus Booster (TDap): Less than 5yrs First/Initial COVID19 Vaccinat: APR Second COVID19 Vaccination Cristian: DID NOT GET 2ND ONE BECAUSE IT MADE HIM SICK. Seasonal Allergies Seasonal Allergies: No Past Medical History Surgery/Hospitalization HX: -AORTIC VALVE REPLACEMENT FOR BUCUSPID AORTIC VALVE, SEVERE AORTIC STENOSIS AND ANEURYSM OF ASCENDING THORACIC AORTA 12/01/2019 AT [facility] -CARDIAC ABLATIONS X 3 FOR ATRIAL FIB/FLUTTER, V-TACH--LAST ONE 02/16/[address] MEDEROS -LOOP RECORDER 2018 Surgeries: Yes (ablation-svt/a-fib, LOOP RECORDER 01/02/19,bicuspid valve replacement) Cardiac, Tonsillectomy, Valve Replacement Respiratory: No Currently Using CPAP: No Currently Using BIPAP: No Cardiac: Yes (ASCEND. THORACIC AORTIC ANEURYSM;BICUSPID AORTIC VALVE;AFIB/RVR;V-TACH;SVT ) Aneurysm, Atrial Fibrillation, Heart Murmur, High Cholesterol, Hypertension, Irregular Heartbeat, Palpitations, Valvular Heart Disease Neurological: Yes Headaches /Migraines Genitourinary: No Gastrointestinal: No Musculoskeletal: Yes Chronic Back Pain Endocrine: Yes (OBESITY) HEENT: No Cancer: No Psychosocial: No Integumentary: No Blood Disorders: No Adverse Reaction/Blood Tranf: No Family Medical History Hypertension SOCIAL HISTORY: -SMOKES UP TO 2 1/2 PPD, CUTTING DOWN TO 1/2 PPD -ETOH--OCCASIONAL USE -DRUGS--SMOKES MARIJUANA DAILY. PAST SURGICAL HISTORY: -TONSILLECTOMY -MULTIPLE CARDIOVERSIONS FOR ATRIAL FIB/FLUTTER WITH RVR/SVT -CARDIAC ABLATIONS X 3--LAST ONE 02/16/[address] MEDEROS -LOOP RECORDER PLACEMENT 01/02/2019 -CARDIAC CATHS--LAST ONE HERE 11/27/19, PRIOR TO AORTIC VALVE REPLACEMENT--NO INTERVENTION, NORMAL CORONARY ARTERIES, SEVERE AORTIC STENOSIS AND ASCENDING THORACIC AORTA ANEURYSM. -MECHANICAL AORTIC VALVE REPLACEMENT 12/01/19 AT [facility] Physical Exam Vital Signs Vital Signs - First Documented 10/16/21 10:13 Temp 36.1 Pulse 92 Resp 18 B/P (MAP) 133/72 (92) Pulse Ox 98 Capillary Refill : Height/Weight/BMI Height: 5'11.00" Weight: 308lbs. 0.0oz. 139.403027ty; 44.66 BMI Method:Stated General Appearance: WD/WN, no apparent distress HEENT: normal ENT inspection, pharynx normal Neck: non-tender, full range of motion, supple, normal inspection, other (No meningismus, negative jolt test) Respiratory: lungs clear, normal breath sounds, no respiratory distress, no accessory muscle use Cardiovascular: regular rate, rhythm, no edema Gastrointestinal: normal bowel sounds, soft; No distended, No guarding, No rebound Extremities: normal range of motion, non-tender, normal inspection, no pedal edema, no calf tenderness, normal capillary refill Back: normal inspection, no CVA tenderness, no vertebral tenderness Neurologic/Psychiatric: no motor/sensory deficits, alert, normal mood/affect Skin: normal color, warm/dry Lymphatic: no adenopathy Progress/Results/Core Measures Results/Orders Lab Results Laboratory Tests Test 10/16/21 10:22 10/16/21 10:23 Range/Units White Blood Count 14.1 H 4.3-11.0 10^3/uL Red Blood Count 5.55 H 4.30-5.52 10^6/uL Hemoglobin 16.5 13.3-17.7 g/dL Hematocrit 46 40-54 % Mean Corpuscular Volume 83 80-99 fL Mean Corpuscular Hemoglobin 30 25-34 pg Mean Corpuscular Hemoglobin Concent 36 32-36 g/dL Red Cell Distribution Width 12.6 10.0-14.5 % Platelet Count 272 130-400 10^3/uL Mean Platelet Volume 9.6 9.0-12.2 fL Immature Granulocyte % (Auto) 1 % Neutrophils (%) (Auto) 68 42-75 % Lymphocytes (%) (Auto) 24 12-44 % Monocytes (%) (Auto) 5 0-12 % Eosinophils (%) (Auto) 2 0-10 % Basophils (%) (Auto) 1 0-10 % Neutrophils # (Auto) 9.7 H 1.8-7.8 X 10^3 Lymphocytes # (Auto) 3.4 1.0-4.0 X 10^3 Monocytes # (Auto) 0.7 0.0-1.0 X 10^3 Eosinophils # (Auto) 0.2 0.0-0.3 10^3/uL Basophils # (Auto) 0.1 0.0-0.1 10^3/uL Immature Granulocyte # (Auto) 0.1 0.0-0.1 10^3/uL Neutrophils % (Manual) 69 % Lymphocytes % (Manual) 24 % Monocytes % (Manual) 5 % Eosinophils % (Manual) 1 % Band Neutrophils 1 % Toxic Granulation 4+ Prothrombin Time 21.6 H 12.2-14.7 SEC INR Comment 1.8 H 0.8-1.4 Activated Partial Thromboplast Time 49 H 24-35 SEC Sodium Level 140 135-145 MMOL/L Potassium Level 3.9 3.6-5.0 MMOL/L Chloride Level 103 98-107 MMOL/L Carbon Dioxide Level 22 21-32 MMOL/L Anion Gap 15 H 5-14 MMOL/L Blood Urea Nitrogen 11 7-18 MG/DL Creatinine 0.76 0.60-1.30 MG/DL Estimat Glomerular Filtration Rate 121 BUN/Creatinine Ratio 14 Glucose Level 138 H 70-105 MG/DL Calcium Level 9.0 8.5-10.1 MG/DL Corrected Calcium 8.8 8.5-10.1 MG/DL Total Bilirubin 0.4 0.1-1.0 MG/DL Aspartate Amino Transf (AST/SGOT) 20 5-34 U/L Alanine Aminotransferase (ALT/SGPT) 20 0-55 U/L Alkaline Phosphatase 77 40-136 U/L Troponin I < 0.30 <0.30 NG/ML Total Protein 7.3 6.4-8.2 GM/DL Albumin 4.3 3.2-4.5 GM/DL Lipase 28 8-78 U/L Influenza Type A Antigen NEGATIVE NEGATIVE Influenza Type B Antigen NEGATIVE NEGATIVE My Orders Orders - REX JOLLEY MD Cbc With Automated Diff (10/16/21 10:18) Comprehensive Metabolic Panel (10/16/21 10:18) Lipase (10/16/21 10:18) Troponin I Fs (10/16/21 10:18) Influenza A & B Antigens (10/16/21 10:18) Covid 19 Inhouse Test (10/16/21 10:18) Chest 1 View Ap/Pa Only (10/16/21 10:18) Ekg Tracing (10/16/21 10:18) Protime With Inr (10/16/21 10:18) Partial Thromboplastin Time (10/16/21 10:18) Ed Iv/Invasive Line Start (10/16/21 10:18) Ondansetron Injection (Zofran Injectio (10/16/21 10:30) Ns Iv 1000 Ml (Sodium Chloride 0.9%) (10/16/21 10:18) Ketorolac Injection (Toradol Injection) (10/16/21 10:30) Manual Differential (10/16/21 10:) Medications Given in ED Current Medications Medications Dose Ordered Sig/Helder Route Start Time Stop Time Status Last Admin Dose Admin Ketorolac Tromethamine 15 mg ONCE ONCE IVP 10/16/21 10:30 10/16/21 10:31 DC 10/16/21 10:28 15 MG Ondansetron HCl 4 mg ONCE ONCE IVP 10/16/21 10:30 10/16/21 10:31 DC 10/16/21 10:28 4 MG Vital Signs/I&O 10/16/21 10:13 Temp 36.1 Pulse 92 Resp 18 B/P (MAP) 133/72 (92) Pulse Ox 98 Progress Progress Note : Progress Note 36-year-old male with above history coming in due to vomiting, headache, body aches this been going on for about 7 hours. ABCs were intact and vitals were stable on presentation. Physical exam reassuring with no focal abnormalities including a soft and nontender abdomen. An IV was placed and he was given a bolus of IV fluids as well as Zofran and Toradol for pain control and nausea. Basic labs obtained including cardiac biomarkers and EKG as well as chest x-ray due to the chest discomfort which is not unusual for the patient. White blood cell count slightly elevated which is nonspecific and could be viral infection. EKG without acute ischemic changes, chest x-ray without any obvious pneumonia on my interpretation, no pneumothorax, normal cardiac silhouette. Troponin negative, electrolytes with no significant abnormality. On reassessment after the IV fluids, Toradol, Zofran, he was feeling better. Flu test is negative, but the COVID test is still pending. Likely has a GI bug of some sort. I believe he is stable for discharge with outpatient follow-up. He was sent home with strict return precautions. Prior to discharge, repeat abdominal exam continues to be reassuring. Initial ECG Impression Date: Oct 16, 2021 Initial ECG Impression Time: 10:35 Initial ECG Rate: 76 Initial ECG Rhythm: Normal Sinus Comment Narrow QRS, normal axis, no significant ST changes or T wave abnormalities Diagnostic Imaging Diagonstic Imaging: Xray Plain Films/CT/US/NM/MRI: chest Comments NAME: TRUPTI JUAREZ [facility] REC#: [id number] PT STATUS: REG ER : 1985 PHYSICIAN: REX JOLLEY MD ADMIT DATE: 10/16/21/ER FS Draft Date of Exam:10/16/21 CHEST 1 VIEW AP/PA ONLY CLINICAL INDICATION: Patient with chest pain. EXAM: Portable chest x-ray, upright view. COMPARISON: Chest x-ray dated 06/29/2021. FINDINGS: Lungs/pleura: Lungs are clear. There is no pneumothorax. There is no pleural effusion. Mediastinum: Unremarkable. Pulmonary vasculature: Unremarkable. Heart: Heart size is within normal limits. Stable postop changes with sternotomy wires and mediastinal clips. Loop recorder is seen overlying the left chest region. Bones/extrathoracic soft tissue: Unremarkable. IMPRESSION: Stable chest x-ray exam with no interval radiographic evidence of acute cardiopulmonary process. Dictated on workstation # [id number] Dict: 10/16/21 1044 Trans: 10/16/21 1046 [id number] Interpreted by: KALEE ALMONTE MD Electronically signed by: Departure Impression Primary Impression: Flu-like symptoms Additional Impressions: Vomiting Qualified Codes: R11.2 - Nausea with vomiting, unspecified Person under investigation for COVID-19 Disposition: 01 HOME, SELF-CARE Condition: Stable Departure-Patient Inst. Decision time for Depature: 10:55 Referrals: YESSENIA HARDING APRN (PCP) Primary Care Physician [facility]/JENNIFER (Family) Primary Care Physician Patient Instructions: COVID-19 Overview, Nausea and Vomiting, Adult ED Add. Discharge Instructions: You were seen in the emergency department for nausea and vomiting with body aches and headache. Your flu test is negative but your Covid test is pending and should come back within the next 24 hours or so. Your chest x-ray looked clear. Your basic labs look good including your electrolytes and kidney function. Your results in regards to your heart looked good as well. Take Tylenol 1000 mg every 6 hours for body aches or headache. He can also take ibuprofen 400 mg every 6 hours. Tylenol is the preferred medicine first just because you are on warfarin. I sent nausea medicine to your pharmacy. If you have any concerns to call your regular doctor or come back to the ER Scripts Ondansetron (Ondansetron Odt) 4 Mg Tab.rapdis 4 MG PO Q6H PRN for NAUSEA/VOMITING-1ST LINE for 5 Days, #20 TAB Prov: REX JOLLEY MD 10/16/21 Work/School Note: Work Release Form Date Seen in the Emergency Department: Oct 16, 2021 Return to Work: Oct 19, 2021 Restrictions: Return-No Fever (24hrs), Return-No Vomiting(24hrs) REX JOLLEY MD Oct 16, 2021 10:26
[2021-10-16 10:30] LABS: BASOPHILS # (AUTO) 0.1 10^3/uL (0.0-0.1); BASOPHILS % (AUTO) 1 % (0-10); EOSINOPHILS # (AUTO) 0.2 10^3/uL (0.0-0.3); EOSINOPHILS % (AUTO) 2 % (0-10); HEMATOCRIT 46 % (40-54); HEMOGLOBIN 16.5 g/dL (13.3-17.7); LYMPHOCYTES # (AUTO) 3.4 X 10^3 (1.0-4.0); LYMPHOCYTES % (AUTO) 24 % (12-44); MEAN CORPUSCULAR HEMOGLOBIN 30 pg (25-34); MEAN CORPUSCULAR HGB CONC 36 g/dL (32-36); MEAN CORPUSCULAR VOLUME 83 fL (80-99); MEAN PLATELET VOLUME 9.6 fL (9.0-12.2); MONOCYTES # (AUTO) 0.7 X 10^3 (0.0-1.0); MONOCYTES % (AUTO) 5 % (0-12); NEUTROPHILS # (AUTO) 9.7 X 10^3 (1.8-7.8); NEUTROPHILS % (AUTO) 68 % (42-75); PLATELET COUNT 272 10^3/uL (130-400); WHITE BLOOD COUNT 14.1 10^3/uL (4.3-11.0)
[2021-10-16] MEDS ORDERED: ONDANSETRON 4 MG/2 ML (SDV) Z0FRAN IVP ONE (10:30)
[2021-10-16] MEDS ORDERED: KETOROLAC 30 MG/ML VIAL IVP ONE (10:30)
[2021-10-16] MEDS ORDERED: ONDA4TAB11 PO (10:39)
[2021-10-16 10:41] LABS: INR 1.8 (0.8-1.4); PROTHROMBIN TIME PATIENT 21.6 SEC (12.2-14.7)
--- NOTE | 2021-10-16 10:46 | Diagnostic Imaging Report ---
CLINICAL INDICATION: Patient with chest pain. EXAM: Portable chest x-ray, upright view. COMPARISON: Chest x-ray dated 06/29/2021. FINDINGS: Lungs/pleura: Lungs are clear. There is no pneumothorax. There is no pleural effusion. Mediastinum: Unremarkable. Pulmonary vasculature: Unremarkable. Heart: Heart size is within normal limits. Stable postop changes with sternotomy wires and mediastinal clips. Loop recorder is seen overlying the left chest region. Bones/extrathoracic soft tissue: Unremarkable. IMPRESSION: Stable chest x-ray exam with no interval radiographic evidence of acute cardiopulmonary process. Dictated by: Dictated on workstation # [id number]
[2021-10-16 10:47] LABS: ALANINE AMINOTRANSFERASE 20 U/L (0-55); ALBUMIN 4.3 GM/DL (3.2-4.5); ALKALINE PHOSPHATASE 77 U/L (40-136); BILIRUBIN,TOTAL 0.4 MG/DL (0.1-1.0); BUN/CREATININE RATIO 14; CARBON DIOXIDE 22 MMOL/L (21-32); CHLORIDE 103 MMOL/L (98-107); CREATININE SERUM 0.76 MG/DL (0.60-1.30); GFR ESTIMATED 121; GLUCOSE 138 MG/DL (70-105); LIPASE 28 U/L (8-78); POTASSIUM 3.9 MMOL/L (3.6-5.0); SODIUM 140 MMOL/L (135-145); TOTAL PROTEIN 7.3 GM/DL (6.4-8.2)
[2021-10-16 10:48] LABS: BAND NEUTROPHILS 1 %; EOSINOPHILS % (MANUAL) 1 %; LYMPHOCYTES % (MANUAL) 24 %; MONOCYTES % (MANUAL) 5 %; NEUTROPHILS % (MANUAL) 69 %; TOXIC GRANULATION/VACUOLAZATIO 4+
[2021-10-16 11:04] VITALS: BP 133/72
== END 2021-10-16 11:00 | disposition home or self-care (01) ==
LOC: EDUNIT# 10:04 → ER FS 10:05
DX: J10.1 Influenza due to other identified influenza virus with other respiratory manifestations (principal); R11.2 Nausea with vomiting, unspecified; E66.9 Obesity, unspecified; I48.91 Unspecified atrial fibrillation; I10 Essential (primary) hypertension; E78.00 Pure hypercholesterolemia, unspecified; Z20.822 Contact with and (suspected) exposure to COVID-19; Z68.41 Body mass index [BMI] 40.0-44.9, adult; Z79.01 Long term (current) use of anticoagulants; Z79.899 Other long term (current) drug therapy; Z79.82 Long term (current) use of aspirin
CPT/HCPCS: 36415; 71045; 80053; 83690; 84484; 85007; 85027; 85610; 85730; 87636; 87804; 93005

== ENCOUNTER 2021-11-01 22:33 | Emergency (ER) | payer SELFPAY ==
[~2021-11-01] VITALS: Ht 180.3 cm; Wt 145.1 kg
[~2021-11-01 22:33] MED LIST changes: +ONDA4TAB11 PO
[2021-11-01 23:13] LABS: INR 1.8 (0.8-1.4); PROTHROMBIN TIME PATIENT 21.4 SEC (12.2-14.7)
[2021-11-01 23:24] LABS: BASOPHILS % (AUTO) 0 % (0-10); EOSINOPHILS # (AUTO) 0.2 10^3/uL (0.0-0.3); EOSINOPHILS % (AUTO) 2 % (0-10); HEMATOCRIT 46 % (40-54); HEMOGLOBIN 16.3 g/dL (13.3-17.7); LYMPHOCYTES # (AUTO) 2.9 10^3/uL (1.0-4.0); LYMPHOCYTES % (AUTO) 30 % (12-44); MEAN CORPUSCULAR HEMOGLOBIN 29 pg (25-34); MEAN CORPUSCULAR HGB CONC 36 g/dL (32-36); MEAN CORPUSCULAR VOLUME 82 fL (80-99); MEAN PLATELET VOLUME 9.9 fL (9.0-12.2); MONOCYTES # (AUTO) 0.7 10^3/uL (0.0-1.0); MONOCYTES % (AUTO) 7 % (0-12); NEUTROPHILS # (AUTO) 5.7 10^3/uL (1.8-7.8); NEUTROPHILS % (AUTO) 59 % (42-75); PLATELET COUNT 253 10^3/uL (130-400); WHITE BLOOD COUNT 9.6 10^3/uL (4.3-11.0)
[2021-11-01 23:35] LABS: ALANINE AMINOTRANSFERASE 25 U/L (0-55); ALBUMIN 4.4 GM/DL (3.2-4.5); ALKALINE PHOSPHATASE 64 U/L (40-136); BILIRUBIN,TOTAL 0.4 MG/DL (0.1-1.0); BUN/CREATININE RATIO 12; CALCIUM 9.2 MG/DL (8.5-10.1); CARBON DIOXIDE 23 MMOL/L (21-32); CHLORIDE 104 MMOL/L (98-107); CREATININE SERUM 0.82 MG/DL (0.60-1.30); GFR ESTIMATED 118; GLUCOSE 110 MG/DL (70-105); SODIUM 138 MMOL/L (135-145); TOTAL PROTEIN 7.3 GM/DL (6.4-8.2)
[2021-11-01 23:38] LABS: POTASSIUM 3.8 MMOL/L (3.6-5.0)
[2021-11-01] MEDS ORDERED: ACETAMINOPHEN 500 MG TAB (TYLENOL) PO ONE (23:45)
[2021-11-01] MEDS ORDERED: ACETAMINOPHEN 500 MG TAB (TYLENOL) ONE (23:46)
--- NOTE | 2021-11-02 02:56 | ED Cardiac General ---
History of Present Illness General Chief Complaint: Chest Pain Stated Complaint: R SHOULDER/CHEST/ABD PAIN Nursing Triage Note: Patient presents to the ER with complaints of chest pain, shortness of breath, fatigue and diarrhea. Patient states that the fatigue started approximately 3 days ago. He states that he has been sleeping most of the day for the last 3 days. Patients chest pain began this morning with radiation to the jaw and arm. Patient has a cardiac history including a mechanical valve and cardiac ablation. Patient states that his research home economist told him that he would have chest pain and he has had the chest pain that his research home economist talks about however, this pain is different. The shortness of breath and diarrhea started today as well. Patient denies any sick contacts. Patient is diaphoretic. Source: patient Exam Limitations: clinical condition History of Present Illness Date Seen by Provider: Nov 02, 2021 Time Seen by Provider: 23:00 Initial Comments Patient is a 36-year-old male with history of mechanical aortic valve replaceme nt performed 2019 at [facility] who presents with 3 days of fatigue, increased shortness of breath when climbing the stairs and diarrhea. He also reports nonspecific abdominal cramping. He denies fever, cough, sore throat, chest pain or shortness of breath at rest. He does report pain going to his jaws and arm. Denies other symptoms or complaints at this time. No medications or therapies prior to ED arrival. Patient is on Coumadin and is compliant with therapy. He last had his INR checked 1 week ago with no adjustments made to medications. Timing/Duration: 2-3 days Severity: mild, moderate Location: other Activities at Onset: other Prior CP/Workup: other Modifying Factors: improves with other ASA po ACTUARIAL ASSOCIATE: No Allergies and Home Medications Allergies Coded Allergies: hydrocodone (Verified Allergy, Unknown, itching, 02/19/20) Patient Home Medication List Home Medication List Reviewed: Yes Aspirin (Aspirin EC) 81 Mg Tablet.dr, 81 MG PO DAILY Prescribed by: MOOK SAINI on 06/30/21 1501 Atorvastatin Calcium (Atorvastatin Calcium) 40 Mg Tablet, 40 MG PO HS, (Reported) Entered as Reported by: ZAHRA DURBIN on 06/30/21 1139 Diltiazem HCl (Diltiazem 24Hr ER) 120 Mg Cap.er.24h, 120 MG PO HS, (Reported) Entered as Reported by: ZAHRA DURBIN on 07/16/20 0909 Metoprolol Succinate (Metoprolol Succinate) 200 Mg Tab.er.24h, 200 MG PO HS, (Reported) Entered as Reported by: ZAHRA DURBIN on 12/22/19 1139 Ondansetron (Ondansetron Odt) 4 Mg Tab.rapdis, 4 MG PO Q6H PRN for NAUSEA/VOMITING-1ST LINE Prescribed by: REX JOLLEY on 10/16/21 1039 Warfarin Sodium (Warfarin Sodium) 10 Mg Tablet, 5 MG PO MON,FRI, (Reported) Entered as Reported by: ZAHRA DURBIN on 07/16/20 0911 Warfarin Sodium (Warfarin Sodium) 10 Mg Tablet, 10 MG PO ,,,,SAT, (Reported) Entered as Reported by: ZAHRA DURBIN on 07/16/20 0911 Review of Systems Review of Systems Constitutional: see HPI EENTM: See HPI Respiratory: See HPI Cardiovascular: See HPI Gastrointestinal: See HPI Genitourinary: See HPI Musculoskeletal: see HPI Skin: see HPI Psychiatric/Neurological: See HPI Endocrine: See HPI Hematologic/Lymphatic: See HPI All Other Systems Reviewed Negative Unless Noted: Yes Past Gpvmtvl-Wzfjcj-Pkomiq Hx Patient Social History Tobacco Use?: Yes Tobacco type used: Cigarettes Smoking Status: Current Everyday Smoker Substance use?: Yes Substance type: Marijuana Alcohol Use?: No Immunizations Up To Date Tetanus Booster (TDap): Less than 5yrs First/Initial COVID19 Vaccinat: APR Second COVID19 Vaccination Cristian: DID NOT GET 2ND ONE BECAUSE IT MADE HIM SICK. 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 MEDEROS -LOOP RECORDER 2019 Surgeries: Yes (ablation-svt/a-fib, LOOP RECORDER 01/02/19,bicuspid valve replacement) Cardiac, Tonsillectomy, Valve Replacement Respiratory: No Currently Using CPAP: No Currently Using BIPAP: No Cardiac: Yes (ASCEND. THORACIC AORTIC ANEURYSM;BICUSPID AORTIC VALVE;AFIB/RVR;V-TACH;SVT ) Aneurysm, Atrial Fibrillation, Heart Murmur, High Cholesterol, Hypertension, Irregular Heartbeat, Palpitations, Valvular Heart Disease Neurological: Yes Headaches /Migraines Genitourinary: No Gastrointestinal: No Musculoskeletal: Yes Chronic Back Pain Endocrine: Yes (OBESITY) HEENT: No Cancer: No Psychosocial: No Integumentary: No Blood Disorders: No Adverse Reaction/Blood Tranf: No Family Medical History Hypertension SOCIAL HISTORY: -SMOKES UP TO 2 1/2 PPD, CUTTING DOWN TO 1/2 PPD -ETOH--OCCASIONAL USE -DRUGS--SMOKES MARIJUANA DAILY. PAST SURGICAL HISTORY: -TONSILLECTOMY -MULTIPLE CARDIOVERSIONS FOR ATRIAL FIB/FLUTTER WITH RVR/SVT -CARDIAC ABLATIONS X 3--LAST ONE 02/16/[address] MEDEROS -LOOP RECORDER PLACEMENT 01/02/2019 -CARDIAC CATHS--LAST ONE HERE 11/27/19, PRIOR TO AORTIC VALVE REPLACEMENT--NO INTERVENTION, NORMAL CORONARY ARTERIES, SEVERE AORTIC STENOSIS AND ASCENDING THORACIC AORTA ANEURYSM. -MECHANICAL AORTIC VALVE REPLACEMENT 12/01/19 AT [facility] Physical Exam Vital Signs Vital Signs - First Documented 11/01/21 22:37 Temp 36.3 Pulse 110 Resp 23 B/P (MAP) 148/84 (105) Pulse Ox 96 O2 Delivery Room Air Capillary Refill : Less Than 3 Seconds Height, Weight, BMI Height: 5'11.00" Weight: 308lbs. 0.0oz. [id number]; 44.00 BMI Method:Stated General Appearance: No Apparent Distress, WD/WN HEENT: PERRL/EOMI, Normal ENT Inspection, Pharynx Normal Neck: Normal Inspection, Non Tender Respiratory: Chest Non Tender, Lungs Clear Cardiovascular: Regular Rate, Rhythm, No Edema, Other ([place] heart sounds) Gastrointestinal: Non Tender, Soft, Other (Exam limited secondary to body mass) Extremity: Normal Capillary Refill Neurologic/Psychiatric: Alert, Oriented x3 Skin: Normal Color Focused Exam Sepsis Stage: Ruled Out Progress/Results/Core Measures Results/Orders Lab Results Laboratory Tests Test 11/01/21 22:46 11/01/21 23:02 11/01/21 23:03 Range/Units White Blood Count 9.6 4.3-11.0 10^3/uL Red Blood Count 5.57 H 4.30-5.52 10^6/uL Hemoglobin 16.3 13.3-17.7 g/dL Hematocrit 46 40-54 % Mean Corpuscular Volume 82 80-99 fL Mean Corpuscular Hemoglobin 29 25-34 pg Mean Corpuscular Hemoglobin Concent 36 32-36 g/dL Red Cell Distribution Width 12.6 10.0-14.5 % Platelet Count 253 130-400 10^3/uL Mean Platelet Volume 9.9 9.0-12.2 fL Immature Granulocyte % (Auto) 1 % Neutrophils (%) (Auto) 59 42-75 % Lymphocytes (%) (Auto) 30 12-44 % Monocytes (%) (Auto) 7 0-12 % Eosinophils (%) (Auto) 2 0-10 % Basophils (%) (Auto) 0 0-10 % Neutrophils # (Auto) 5.7 1.8-7.8 10^3/uL Lymphocytes # (Auto) 2.9 1.0-4.0 10^3/uL Monocytes # (Auto) 0.7 0.0-1.0 10^3/uL Eosinophils # (Auto) 0.2 0.0-0.3 10^3/uL Basophils # (Auto) 0.0 0.0-0.1 10^3/uL Immature Granulocyte # (Auto) 0.1 0.0-0.1 10^3/uL Prothrombin Time 21.4 H 12.2-14.7 SEC INR Comment 1.8 H 0.8-1.4 Sodium Level 138 135-145 MMOL/L Potassium Level 3.8 3.6-5.0 MMOL/L Chloride Level 104 98-107 MMOL/L Carbon Dioxide Level 23 21-32 MMOL/L Anion Gap 11 5-14 MMOL/L Blood Urea Nitrogen 10 7-18 MG/DL Creatinine 0.82 0.60-1.30 MG/DL Estimat Glomerular Filtration Rate 118 BUN/Creatinine Ratio 12 Glucose Level 110 H 70-105 MG/DL Calcium Level 9.2 8.5-10.1 MG/DL Corrected Calcium 8.9 8.5-10.1 MG/DL Total Bilirubin 0.4 0.1-1.0 MG/DL Aspartate Amino Transf (AST/SGOT) 25 5-34 U/L Alanine Aminotransferase (ALT/SGPT) 25 0-55 U/L Alkaline Phosphatase 64 40-136 U/L Troponin I < 0.30 <0.30 NG/ML C-Reactive Protein 0.30 <0.50 MG/DL Pro-B-Type Natriuretic Peptide 61.8 <75.0 PG/ML Total Protein 7.3 6.4-8.2 GM/DL Albumin 4.4 3.2-4.5 GM/DL Monoscreen NEGATIVE NEGATIVE Influenza Type A Antigen NEGATIVE NEGATIVE Influenza Type B Antigen NEGATIVE NEGATIVE Influenza Type A (RT-PCR) Not Detected Not Detecte Influenza Type B (RT-PCR) Not Detected Not Detecte SARS-CoV-2 RNA (RT-PCR) Not Detected Not Detecte My Orders Orders - TRUPTI SANCHEZ DO Cbc With Automated Diff (11/01/21 22:55) Comprehensive Metabolic Panel (11/01/21 22:55) Ekg Tracing (11/01/21 22:55) Chest 1 View Ap/Pa Only (11/01/21 22:55) Troponin I Fs (11/01/21 22:55) Probnp Fs (11/01/21 22:55) Protime With Inr (11/01/21 22:55) Covid 19 Inhouse Test (11/01/21 23:00) Influenza A And B By Pcr (11/01/21 23:00) Isolation Central Supply Req (11/01/21 23:00) Influenza A & B Antigens (11/01/21 23:13) Ed Iv/Invasive Line Start (11/01/21 23:14) Acetaminophen Tablet (Tylenol Tablet) (11/01/21 23:45) Acetaminophen Tablet (Tylenol Tablet) (11/01/21 23:46) Monotest (11/02/21 02:13) Crp Fs (11/02/21 02:13) Blood Culture (11/02/21 02:17) Medications Given in ED Current Medications Medications Dose Ordered Sig/Helder Route Start Time Stop Time Status Last Admin Dose Admin Acetaminophen 1,000 mg ONCE ONCE PO 11/01/21 23:45 3 23:46 DC 11/01/21 23:48 1,000 MG Vital Signs/I&O 11/01/21 22:37 Temp 36.3 Pulse 110 Resp 23 B/P (MAP) 148/84 (105) Pulse Ox 96 O2 Delivery Room Air Blood Pressure Mean: 105 Departure Communication (Admissions) Chest x-ray: No acute cardiopulmonary disease. EKG: Sinus rhythm, no acute ST-T wave changes. Patient with multiple nonspecific symptoms currently present during ED visit. Vital signs are stable, EKG is reassuring, troponin and BNP are negative. INR is slightly subtherapeutic. He is afebrile with negative Covid, influenza, Monospot and C-reactive protein is negative with blood culture pending. Etiology of patient's symptoms are unclear. I am comfortable discharging the patient home and having him follow-up with his research home economist office later this this morning. Patient has not had an echocardiogram in the past year due to Covid. He is further instructed to follow-up with his PCP. Explicit return instructions provided. Patient verbalizes understanding agreement discharge instructions prior to departure Impression Primary Impression: Dyspnea Additional Impressions: Fatigue Abdominal pain Disposition: HOME, SELF-CARE Condition: Stable Departure-Patient Inst. Referrals: YESSENIA HARDING APRN (PCP) Primary Care Physician [facility]/JENNIFER (Family) Primary Care Physician Patient Instructions: Fatigue, Shortness of Breath (Dyspnea) (DC) Add. Discharge Instructions: You were evaluated in the emergency department for shortness of breath fatigue sweats and multiple medical symptoms. EKG, lab and imaging studies were performed and are nondiagnostic. The exact cause of your symptoms as not be determined. An INR was subtherapeutic at 1.8. Please take an extra dose of Coumadin and follow-up with your research home economist office later this morning for further recommendations. Contact your PCP for reevaluation in 2 to 3 days. If you develop fever, chest pain, worsening shortness of breath or any other concerning symptoms return immediately to the emergency department. All discharge instructions reviewed with patient and/or family. Voiced understanding. TRUPTI SANCHEZ DO Nov 02, 2021 02:56
[2021-11-02 03:01] VITALS: BP 135/88
--- NOTE | 2021-11-02 06:30 | Diagnostic Imaging Report ---
INDICATION: Chest pain. Comparison made with prior examination 10/16/2021. FINDINGS: The heart size is stable. There has been previous median sternotomy. Lungs are clear. There is no pleural effusion or pneumothorax. Mediastinum is unremarkable. IMPRESSION: No acute cardiopulmonary abnormality. Dictated by: Dictated on workstation # [id number]
== END 2021-11-02 03:01 | disposition home or self-care (01) ==
LOC: EDUNIT# 22:33 → ER FS 22:35
DX: R06.00 Dyspnea, unspecified (principal); R53.83 Other fatigue; R10.9 Unspecified abdominal pain; E66.9 Obesity, unspecified; F17.210 Nicotine dependence, cigarettes, uncomplicated; Z68.41 Body mass index [BMI] 40.0-44.9, adult; Z20.822 Contact with and (suspected) exposure to COVID-19
CPT/HCPCS: 36415; 71045; 80053; 83880; 84484; 85025; 85610; 86141; 86308; 87040; 87636; 87804; 93005

== ENCOUNTER 2021-12-28 16:51 | Emergency (ER) | payer SELFPAY ==
[~2021-12-28] VITALS: Ht 180.3 cm; Wt 143.8 kg
[2021-12-28 16:53] VITALS: BP 143/81
[2021-12-28] MEDS ORDERED: ASPIRIN 81 MG CHEW (CHILDREN'S ASA) PO ONE (17:00)
[2021-12-28 17:06] LABS: BASOPHILS % (AUTO) 0 % (0-10); EOSINOPHILS # (AUTO) 0.2 10^3/uL (0.0-0.3); EOSINOPHILS % (AUTO) 2 % (0-10); HEMATOCRIT 45 % (40-54); HEMOGLOBIN 16.1 g/dL (13.3-17.7); LYMPHOCYTES % (AUTO) 33 % (12-44); MEAN CORPUSCULAR HEMOGLOBIN 30 pg (25-34); MEAN CORPUSCULAR HGB CONC 36 g/dL (32-36); MEAN CORPUSCULAR VOLUME 83 fL (80-99); MEAN PLATELET VOLUME 9.6 fL (9.0-12.2); MONOCYTES # (AUTO) 0.7 10^3/uL (0.0-1.0); MONOCYTES % (AUTO) 7 % (0-12); NEUTROPHILS # (AUTO) 5.3 10^3/uL (1.8-7.8); NEUTROPHILS % (AUTO) 57 % (42-75); PLATELET COUNT 229 10^3/uL (130-400); WHITE BLOOD COUNT 9.3 10^3/uL (4.3-11.0)
--- NOTE | 2021-12-28 17:07 | ED Chest Pain ---
General Stated Complaint: CP Source: patient, old records History of Present Illness Date Seen by Provider: Dec 28, 2021 Time Seen by Provider: 16:52 Initial Comments 36-year-old male presenting with complaint of sharp chest pains on the left side of his chest. He states that this is been off and on all day. He has had similar pains in the past and usually they last for short time and go away. Today he has been having pain lasting throughout the day and intermittent episodes. He does have a history of atrial fibrillation with several ablations as well as he has had aortic valve replacement. He is on chronic Coumadin therapy due to the mechanical valve. He has metoprolol and diltiazem that he takes to help with blood pressure and rate control. He did miss a dose of his medicines last night. He follows with Dr. Benitez cardiology down in [place]. He had gone to [facility] and they did an electrocardiogram which the computer read as a possible inferior infarct. Based on this he was sent to the emergency department from the [facility] clinic. Timing/Duration: intermittent (all day) Severity/Quality: moderate Location: substernal Radiation: no radiation Activities at Onset: none Prior CP/Workup: cardiac cath, echocardiography ASA po PROCESS OPERATOR: No NTG SL PROCESS OPERATOR: No Associated Symptoms: No abdominal pain, No back pain, No diaphoresis, No dizziness, No edema, No fatigue, No fever/chills, No headache, No heartburn, No nausea/vomiting, No rash, No shortness of breath, No swelling/lump in chest, No syncope, No weakness Allergies and Home Medications Allergies Coded Allergies: hydrocodone (Verified Allergy, Unknown, itching, 02/19/20) Patient Home Medication List Home Medication List Reviewed: Yes Aspirin (Aspirin EC) 81 Mg Tablet.dr, 81 MG PO DAILY Prescribed by: MOOK SAINI on 06/30/21 1501 Atorvastatin Calcium (Atorvastatin Calcium) 40 Mg Tablet, 40 MG PO HS, (Reported) Entered as Reported by: ZAHRA DURBIN on 06/30/21 1139 Diltiazem HCl (Diltiazem 24Hr ER) 120 Mg Cap.er.24h, 120 MG PO HS, (Reported) Entered as Reported by: ZAHRA DURBIN on 07/16/20 0909 Metoprolol Succinate (Metoprolol Succinate) 200 Mg Tab.er.24h, 200 MG PO HS, (Reported) Entered as Reported by: ZAHRA DURBIN on 12/22/19 1139 Ondansetron (Ondansetron Odt) 4 Mg Tab.rapdis, 4 MG PO Q6H PRN for NAUSEA/VOMITING-1ST LINE Prescribed by: REX JOLLEY on 10/16/21 1039 Warfarin Sodium (Warfarin Sodium) 10 Mg Tablet, 5 MG PO MON,FRI, (Reported) Entered as Reported by: ZARHA DURBIN on 07/16/20 0911 Warfarin Sodium (Warfarin Sodium) 10 Mg Tablet, 10 MG PO SARABIA,TU,WE,TH,SAT, (Reported) Entered as Reported by: ZAHRA DURBIN on 07/16/20 0911 Review of Systems Review of Systems Constitutional: No chills, No fever EENTM: No Symptoms Reported Respiratory: No Symptoms Reported Cardiovascular: See HPI Gastrointestinal: No Symptoms Reported Genitourinary: No Symptoms Reported Musculoskeletal: no symptoms reported Skin: no symptoms reported Psychiatric/Neurological: No Symptoms Reported Endocrine: No Symptoms Reported Hematologic/Lymphatic: Easy Bleeding (takes warfarin), Easy Bruising (takes warfarin) Past Fbhwcbj-Xcdwkb-Hsmuxt Hx Patient Social History Tobacco Use?: No Substance use?: No Alcohol Use?: No Immunizations Up To Date Tetanus Booster (TDap): Less than 5yrs First/Initial COVID19 Vaccinat: APR Second COVID19 Vaccination Cristian: DID NOT GET 2ND ONE BECAUSE IT MADE HIM SICK. Third COVID19 Vaccination Date: APR Seasonal Allergies Seasonal Allergies: No Past Medical History Surgery/Hospitalization HX: -AORTIC VALVE REPLACEMENT FOR BUCUSPID AORTIC VALVE, SEVERE AORTIC STENOSIS AND ANEURYSM OF ASCENDING THORACIC AORTA 12/01/2019 AT [facility] -CARDIAC ABLATIONS X 3 FOR ATRIAL FIB/FLUTTER, V-TACH--LAST ONE 02/16/[address] MEDEROS -LOOP RECORDER 2019 Surgeries: Yes (ablation-svt/a-fib, LOOP RECORDER 01/02/19,bicuspid valve replacement) Cardiac, Tonsillectomy, Valve Replacement Respiratory: No Currently Using CPAP: No Currently Using BIPAP: No Cardiac: Yes (ASCEND. THORACIC AORTIC ANEURYSM;BICUSPID AORTIC VALVE;AFIB/RVR;V-TACH;SVT ) Aneurysm, Atrial Fibrillation, Heart Murmur, High Cholesterol, Hypertension, Irregular Heartbeat, Palpitations, Valvular Heart Disease Neurological: Yes Headaches /Migraines Genitourinary: No Gastrointestinal: No Musculoskeletal: Yes Chronic Back Pain Endocrine: Yes (OBESITY) HEENT: No Cancer: No Psychosocial: No Integumentary: No Blood Disorders: No Adverse Reaction/Blood Tranf: No Family Medical History Hypertension SOCIAL HISTORY: -SMOKES UP TO 2 1/2 PPD, CUTTING DOWN TO 1/2 PPD -ETOH--OCCASIONAL USE -DRUGS--SMOKES MARIJUANA DAILY. PAST SURGICAL HISTORY: -TONSILLECTOMY -MULTIPLE CARDIOVERSIONS FOR ATRIAL FIB/FLUTTER WITH RVR/SVT -CARDIAC ABLATIONS X 3--LAST ONE 02/16/[address] MEDEROS -LOOP RECORDER PLACEMENT 01/02/2019 -CARDIAC CATHS--LAST ONE HERE 11/27/19, PRIOR TO AORTIC VALVE REPLACEMENT--NO INTERVENTION, NORMAL CORONARY ARTERIES, SEVERE AORTIC STENOSIS AND ASCENDING THORACIC AORTA ANEURYSM. -MECHANICAL AORTIC VALVE REPLACEMENT 12/01/19 AT [facility] Physical Exam Vital Signs Vital Signs - First Documented 12/28/21 12/28/21 16:53 18:51 Temp 36.5 Pulse 97 Resp 18 B/P (MAP) 143/81 (101) Pulse Ox 99 O2 Delivery Room Air Capillary Refill : Height, Weight, BMI Height: 5'11.00" Weight: 308lbs. 0.0oz. 139.104201ua; 44.00 BMI Method:Stated General Appearance: No Apparent Distress, WD/WN, Obese HEENT: PERRL/EOMI, Pharynx Normal Neck: Full Range of Motion, Normal Inspection, Non Tender, Supple Respiratory: Chest Non Tender, Lungs Clear, Normal Breath Sounds, No Accessory Muscle Use, No Respiratory Distress Cardiovascular: Regular Rate, Rhythm, Normal Peripheral Pulses Gastrointestinal: Normal Bowel Sounds, No Pulsatile Mass, Non Tender, Soft Rectal: Deferred Extremity: Normal Capillary Refill, Normal Inspection, No Pedal Edema Neurologic/Psychiatric: Alert, Oriented x3 Skin: Normal Color, Warm/Dry Images 1 - left sided substernal chest pains Progress/Results/Core Measures Results/Orders Lab Results Laboratory Tests Test 12/28/21 17:00 12/28/21 19:03 Range/Units White Blood Count 9.3 4.3-11.0 10^3/uL Red Blood Count 5.39 4.30-5.52 10^6/uL Hemoglobin 16.1 13.3-17.7 g/dL Hematocrit 45 40-54 % Mean Corpuscular Volume 83 80-99 fL Mean Corpuscular Hemoglobin 30 25-34 pg Mean Corpuscular Hemoglobin Concent 36 32-36 g/dL Red Cell Distribution Width 12.8 10.0-14.5 % Platelet Count 229 130-400 10^3/uL Mean Platelet Volume 9.6 9.0-12.2 fL Immature Granulocyte % (Auto) 1 % Neutrophils (%) (Auto) 57 42-75 % Lymphocytes (%) (Auto) 33 12-44 % Monocytes (%) (Auto) 7 0-12 % Eosinophils (%) (Auto) 2 0-10 % Basophils (%) (Auto) 0 0-10 % Neutrophils # (Auto) 5.3 1.8-7.8 10^3/uL Lymphocytes # (Auto) 3.0 1.0-4.0 10^3/uL Monocytes # (Auto) 0.7 0.0-1.0 10^3/uL Eosinophils # (Auto) 0.2 0.0-0.3 10^3/uL Basophils # (Auto) 0.0 0.0-0.1 10^3/uL Immature Granulocyte # (Auto) 0.1 0.0-0.1 10^3/uL Prothrombin Time 18.3 H 12.2-14.7 SEC INR Comment 1.5 H 0.8-1.4 Activated Partial Thromboplast Time 41 H 24-35 SEC Sodium Level 135 135-145 MMOL/L Potassium Level 3.7 3.6-5.0 MMOL/L Chloride Level 101 98-107 MMOL/L Carbon Dioxide Level 25 21-32 MMOL/L Anion Gap 9 5-14 MMOL/L Blood Urea Nitrogen 9 7-18 MG/DL Creatinine 0.83 0.60-1.30 MG/DL Estimat Glomerular Filtration Rate 118 BUN/Creatinine Ratio 11 Glucose Level 91 70-105 MG/DL Calcium Level 9.6 8.5-10.1 MG/DL Corrected Calcium 8.5-10.1 MG/DL Magnesium Level 1.9 1.6-2.4 MG/DL Total Bilirubin 0.6 0.1-1.0 MG/DL Aspartate Amino Transf (AST/SGOT) 37 H 5-34 U/L Alanine Aminotransferase (ALT/SGPT) 34 0-55 U/L Alkaline Phosphatase 59 40-136 U/L Myoglobin 62.8 10.0-92.0 NG/ML Troponin I < 0.30 < 0.30 <0.30 NG/ML Pro-B-Type Natriuretic Peptide 33.7 <75.0 PG/ML Total Protein 7.3 6.4-8.2 GM/DL Albumin 4.7 H 3.2-4.5 GM/DL Lipase 28 8-78 U/L My Orders Orders - YOVANI BRONSON MD Ekg Tracing (12/28/21 16:56) Cbc With Automated Diff (12/28/21 17:00) Magnesium (12/28/21 17:00) Chest 1 View Ap/Pa Only (12/28/21 17:00) Comprehensive Metabolic Panel (12/28/21 17:00) Myoglobin Serum (12/28/21 17:00) Protime With Inr (12/28/21 17:00) Partial Thromboplastin Time (12/28/21 17:00) O2 (12/28/21 17:00) Monitor-Rhythm Ecg Trace Only (12/28/21 17:00) Aspirin Chewable Tablet (Baby Aspirin Ch (12/28/21 17:00) Ed Iv/Invasive Line Start (12/28/21 17:00) Lipase (12/28/21 17:00) Troponin I Fs (12/28/21 17:00) Probnp Fs (12/28/21 17:00) Ekg Tracing (12/28/21 17:49) Metoprolol Tartrate Injection (Lopressor (12/28/21 17:49) Fentanyl Inj (Sublimaze Injection) (12/28/21 17:57) Diltiazem Cd 24 Hr Capsule (Cardizem Cd (12/28/21 18:09) Iohexol Injection (Omnipaque 350 Mg/Ml 1 (12/28/21 18:30) Received Contrast (Hold Metformin- Contr (12/28/21 18:30) Ns (Ivpb) (Sodium Chloride 0.9% Ivpb Bag (12/28/21 18:30) Ct Angio Chest W Wo (12/28/21 18:20) Troponin I Fs (12/28/21 18:58) Medications Given in ED Current Medications Medications Dose Ordered Sig/Helder Route Start Time Stop Time Status Last Admin Dose Admin Aspirin 324 mg ONCE ONCE PO 12/28/21 17:00 12/28/21 17:02 DC 12/28/21 17:12 324 MG Iohexol 100 ml ONCE ONCE IV 12/28/21 18:30 12/28/21 18:31 DC 12/28/21 18:39 100 ML Sodium Chloride 100 ml ONCE ONCE IV 12/28/21 18:30 12/28/21 18:31 DC 12/28/21 18:39 100 ML Vital Signs/I&O 12/28/21 12/28/21 16:53 18:51 Temp 36.5 Pulse 97 76 Resp 18 18 B/P (MAP) 143/81 (101) 129/65 Pulse Ox 99 O2 Delivery Room Air Room Air Progress Progress Note #1: Progress Note Obtain basic labs as well as electrocardiogram, chest x-ray, cardiac enzymes. Administer 324 mg of aspirin. As patient reports he is not having any pain at this point we will hold off on other medications. If he does have recurrent pain while he is here we will address that when he brings it up. Advised patient to let us know as soon as he starts developing chest pain again. Differential diagnosis includes myocardial infarction, pleurisy, costochondritis, pneumonia Progress Note #2: Time: 17:38 Progress Note Patient's labs appear stable without acute significant abnormality on his CBC or chemistry. His troponin was less than 0.3. His INR was subtherapeutic at 1.5. His electrocardiogram does not show any acute ST elevation. His chest x-ray did not show any acute process. However patient had recurrent chest pain while resting in the bed. He states that this pain was sharp and lasting longer. It was radiating to his left shoulder. A repeat EKG was ordered but appeared similar to the initial EKG still without ST elevation. A dose of metoprolol 5 mg IV was ordered as well as will order his diltiazem 120 mg extended release by mouth. Fentanyl 50 mcg IV for pain as well. Will check with Dr. Saini for [facility] and Dr. Scott for cardiology about admission overnight for monitoring and serial enzymes. Progress Note #3: Progress Note [address] Saini and she was willing to admit the patient for cardiac stepdown bed for serial enzymes and monitoring but did request that we have Dr. Scott's input as well. [address] Scott he had suggested getting enzymes that 2 hours after his chest pain to try and help rule out acute coronary syndrome or ID. A lso recommend getting a CT angiogram to evaluate his known dilated aortic aneurysm of 4.7 cm. If he is having any findings for worsening of this aneurysm or having dissection then this could be a source for his pain. If so he would need to be transferred back to [facility] where he had the valve replacement ordered to a heart center where cardiovascular thoracic surgeon is available. I updated the patient and spouse about the findings and plan. Ordered a CT angiogram to evaluate his aorta. Will order a second troponin and see what that shows. As Dr. Scott had recommended, since his pains have been all day and he had clear coronary arteries November 2019 with heart cath, he could be discharged to home to continue his regular medicines and check back with Dr. Wood and Cardiology during the day. Return for worsening pain/symptoms. 1855 CT angiogram negative for change in his aortic aneurysm and no sign of dissection or Pulmonary Embolus. Reassured pt and spouse and they were interes henry in going home provided the repeat Troponin was still negative. Progress Note #4: Progress Note 1927 Repeat Troponin is still negative at 2 hours so will have pt go home to t janet his regular medicines. Encouraged to continue on his medicine as prescribed. Counseled on follow-up and return precautions. Advised to not take his diltiazem tonight but to take the metoprolol and he may need to take additional warfarin since his INR was 1.5. Patient refused a dose of Lovenox here and stated he would just take a little extra of his warfarin at home. Initial ECG Impression Date: Dec 28, 2021 Initial ECG Impression Time: 17:06 Initial ECG Rate: 88 Initial ECG Rhythm: Normal Sinus Initial ECG Comparisson: Unchanged Comment Normal sinus rhythm with a heart rate of 88 bpm. Incomplete right bundle branch block. NH interval [address] elevation. QT interval 368 ms with a QTc interval 413 ms. Overall appears similar to prior tracings in the system. EKG : EKG Time: 17:53 Rate: 93 Rhythm: Normal Sinus ECG Comparisson: Unchanged Comment Normal sinus rhythm with heart rate 93 bpm. NH interval [address] elevation. Incomplete right bundle branch block. QT interval 362 ms with a QTc interval 413 ms. Overall appears similar to prior tracing from 1706 and from previous tracings in the system. Diagnostic Imaging Diagonstic Imaging: Xray Plain Films/CT/US/NM/MRI: chest Comments [facility] [place], [place] NAME: TRUPTI JUAREZ [facility] REC#: [id number] PT STATUS: REG ER : 1985 PHYSICIAN: YOVANI BRONSON MD ADMIT DATE: 12/28/21/ER FS Signed Date of Exam:12/28/21 CHEST 1 VIEW AP/PA ONLY INDICATION: Coronary artery disease, chest pain COMPARISON: 11/01/2021 FINDINGS: Single view of the chest demonstrates clear lungs bilaterally. The heart is normal. There is no pneumothorax. Osseous structures normal. Sternal wires are midline. IMPRESSION: Negative chest Dictated by: Dictated on workstation # [id number] Dict: 12/28/216 Trans: 12/28/21 1735 [id number] Interpreted by: JENNY FRANKLIN Electronically signed by: JENNY FRANKLIN 12/28/21 1735 Reviewed: Reviewed by Ia Diagonstic Imaging: CT Plain Films/CT/US/NM/MRI: chest (angiogram) Comments [facility] [place] [place], [place] NAME: TRUPTI JUAREZ [facility] REC#: [id number] PT STATUS: REG ER : 1985 PHYSICIAN: YOVANI BRONSON MD ADMIT DATE: 12/28/21/ER FS Draft Date of Exam:12/28/21 CT ANGIO CHEST W WO PROCEDURE: CT angiography of the chest with and without contrast. TECHNIQUE: Noncontrast CT of the chest was performed. Subsequently, after intravenous administration of contrast, thin section axial CT angiography of the chest was performed. 3D MIP reconstructions were made. Auto Exposure Controls were utilized during the CT exam to meet ALARA standards for radiation dose reduction. INDICATION: Aortic aneurysm. COMPARISON: 06/30/2021. FINDINGS: Heart size is stable. There is stable aneurysmal dilatation of the ascending aorta measuring up to 46 mm. Previously measured at 47 mm. There is no dissection. The aortic arch and descending aorta are grossly unremarkable. The pulmonary arteries are normal. The lungs are clear. There is no infiltrate. IMPRESSION: 1. Stable ascending aortic aneurysm. No dissection. 2. No pulmonary embolism identified. 3. Not mentioned above, postoperative changes involving the aortic valve. Dictated on workstation # [id number] Dict: 12/28/21 185 Trans: 12/28/21 [id number] Interpreted by: JENNY FRANKLIN Electronically signed by: Reviewed: Reviewed by Me Departure Impression Primary Impression: Chest pain Qualified Codes: R07.89 - Other chest pain Additional Impression: Thoracic aortic aneurysm without rupture Disposition: 01 HOME, SELF-CARE Condition: Stable Departure-Patient Inst. Decision time for Depature: 19:29 Referrals: YESSENIA HARDING APRN (PCP) Primary Care Physician [facility] (Family) Primary Care Physician JOSÉ MANUEL WOOD JR, MD Patient Instructions: Chest Pain, Adult ED, Aortic Aneurysm (DC) Add. Discharge Instructions: Take your medicine as prescribed. Check back with Dr. Wood for continued pain/concerns. Return to ER or seek medical care for further evaluation if having worsening symptoms or more pain. Work/School Note: Work Release Form Date Seen in the Emergency Department: Dec 28, 2021 Return to Work: Dec 29, 2021 Restrictions: No Restrictions YOVANI BRONSON MD Dec 28, 2021 17:07
[2021-12-28 17:16] LABS: INR 1.5 (0.8-1.4); PROTHROMBIN TIME PATIENT 18.3 SEC (12.2-14.7)
--- NOTE | 2021-12-28 17:18 | Diagnostic Imaging Report ---
INDICATION: Coronary artery disease, chest pain COMPARISON: 11/01/2021 FINDINGS: Single view of the chest demonstrates clear lungs bilaterally. The heart is normal. There is no pneumothorax. Osseous structures normal. Sternal wires are midline. IMPRESSION: Negative chest Dictated by: Dictated on workstation # [id number]
[2021-12-28 17:24] LABS: CARBON DIOXIDE 25 MMOL/L (21-32); CHLORIDE 101 MMOL/L (98-107); POTASSIUM 3.7 MMOL/L (3.6-5.0); SODIUM 135 MMOL/L (135-145)
[2021-12-28 17:25] LABS: ALANINE AMINOTRANSFERASE 34 U/L (0-55); ALBUMIN 4.7 GM/DL (3.2-4.5); ALKALINE PHOSPHATASE 59 U/L (40-136); BILIRUBIN,TOTAL 0.6 MG/DL (0.1-1.0); BUN/CREATININE RATIO 11; CALCIUM 9.6 MG/DL (8.5-10.1); CREATININE SERUM 0.83 MG/DL (0.60-1.30); GFR ESTIMATED 118; GLUCOSE 91 MG/DL (70-105); LIPASE 28 U/L (8-78); MAGNESIUM 1.9 MG/DL (1.6-2.4); TOTAL PROTEIN 7.3 GM/DL (6.4-8.2)
[2021-12-28] MEDS ORDERED: meTOprolol 5 MG/5 ML (LOPRESSOR) VIAL IV STA (17:49)
[2021-12-28] MEDS ORDERED: fentaNYL INJ 100 MCG/2 ML AMP IVP STA (17:57)
[2021-12-28] MEDS ORDERED: dilTIAZem120 MG (CARDIZEM CD) CAP PO STA (18:09)
[2021-12-28] MEDS ORDERED: NS 100 ML (IVPB) BAG IV ONE (18:30)
[2021-12-28] MEDS ORDERED: IOHEXOL 350 MG/ML 100 ML (OMNIPAQUE 350) VIAL IV ONE (18:30)
[2021-12-28] MEDS ORDERED: HOLD METFORMIN - RECEIVED CONTRAST 20 ML VIAL IV SCH (18:30)
--- NOTE | 2021-12-28 18:54 | Diagnostic Imaging Report ---
PROCEDURE: CT angiography of the chest with and without contrast. TECHNIQUE: Noncontrast CT of the chest was performed. Subsequently, after intravenous administration of contrast, thin section axial CT angiography of the chest was performed. 3D MIP reconstructions were made. Auto Exposure Controls were utilized during the CT exam to meet ALARA standards for radiation dose reduction. INDICATION: Aortic aneurysm. COMPARISON: 06/30/2021. FINDINGS: Heart size is stable. There is stable aneurysmal dilatation of the ascending aorta measuring up to 46 mm. Previously measured at 47 mm. There is no dissection. The aortic arch and descending aorta are grossly unremarkable. The pulmonary arteries are normal. The lungs are clear. There is no infiltrate. IMPRESSION: 1. Stable ascending aortic aneurysm. No dissection. 2. No pulmonary embolism identified. 3. Not mentioned above, postoperative changes involving the aortic valve. Dictated by: Dictated on workstation # [id number]
== END 2021-12-28 19:38 | disposition home or self-care (01) ==
LOC: EDUNIT# 16:51 → ER FS 16:52
DX: R07.9 Chest pain, unspecified (principal); I71.2 Thoracic aortic aneurysm, without rupture; I48.91 Unspecified atrial fibrillation; E66.9 Obesity, unspecified; Z68.41 Body mass index [BMI] 40.0-44.9, adult; Z79.01 Long term (current) use of anticoagulants
CPT/HCPCS: 36415; 71045; 71275; 80053; 83690; 83735; 83874; 83880; 84484; 85025; 85610; 85730; 93005; 93041; Q9967

== ENCOUNTER 2022-01-09 16:08 | Emergency (ER) | payer SELFPAY ==
[~2022-01-09] VITALS: Ht 180 cm; Wt 143.0 kg
--- NOTE | 2022-01-09 17:03 | ED General ---
General Stated Complaint: TOOTH PAIN Source of Information: Patient Exam Limitations: No Limitations History of Present Illness Date Seen by Provider: January 09, 2022 Time Seen by Provider: 16:00 Initial Comments Patient is a 36 year old male with left lower post wisdom tooth fracture and pain x 3 days. No swelling, dysphonia, or drooling. Severity: Moderate Modifying Factors: improves with Other Associated Systoms: Other Allergies and Home Medications Allergies Coded Allergies: hydrocodone (Verified Allergy, Unknown, itching, 02/19/20) Patient Home Medication List Home Medication List Reviewed: Yes Aspirin (Aspirin EC) 81 Mg Tablet.dr, 81 MG PO DAILY Prescribed by: MOOK SAINI on 06/30/21 1501 Atorvastatin Calcium (Atorvastatin Calcium) 40 Mg Tablet, 40 MG PO HS, (Repo rted) Entered as Reported by: ZAHRA DURBIN on 06/30/21 1139 Clindamycin HCl (Clindamycin HCl) 300 Mg Capsule, 300 MG PO QID Prescribed by: TRUPTI SANCHEZ on 01/09/22 1705 Diltiazem HCl (Diltiazem 24Hr ER) 120 Mg Cap.er.24h, 120 MG PO HS, (Reported) Entered as Reported by: ZAHRA DURBIN on 07/16/20 0909 Metoprolol Succinate (Metoprolol Succinate) 200 Mg Tab.er.24h, 200 MG PO HS, (Reported) Entered as Reported by: ZAHRA DURBIN on 12/22/19 1139 Ondansetron (Ondansetron Odt) 4 Mg Tab.rapdis, 4 MG PO Q6H PRN for NAUS EA/VOMITING-1ST LINE Prescribed by: REX JOLLEY on 10/16/21 1039 Tramadol HCl (Tramadol HCl) 50 Mg Tablet, 50 MG PO Q6H Prescribed by: TRUPTI SANCHEZ on 01/09/22 1706 Warfarin Sodium (Warfarin Sodium) 10 Mg Tablet, 5 MG PO MON,FRI, (Reported) Entered as Reported by: ZAHRA DURBIN on 07/16/20 0911 Warfarin Sodium (Warfarin Sodium) 10 Mg Tablet, 10 MG PO SARABIA,,WE,TH,SAT, (Reported) Entered as Reported by: ZAHRA DURBIN on 07/16/20 0911 Review of Systems Review of Systems Constitutional: see HPI EENTM: see HPI Respiratory: see HPI Past Raodvoj-Eurpps-Inabdw Hx Immunizations Up To Date Tetanus Booster (TDap): Less than 5yrs First/Initial COVID19 Vaccinat: APR Second COVID19 Vaccination Cristian: DID NOT GET 2ND ONE BECAUSE IT MADE HIM SICK. Third COVID19 Vaccination Date: APR Seasonal Allergies Seasonal Allergies: No Past Medical History Surgery/Hospitalization HX: -AORTIC VALVE REPLACEMENT FOR BUCUSPID AORTIC VALVE, SEVERE AORTIC STENOSIS AND ANEURYSM OF ASCENDING THORACIC AORTA 12/01/2019 AT [facility] -CARDIAC ABLATIONS X 3 FOR ATRIAL FIB/FLUTTER, V-TACH--LAST ONE 02/16/[address] MEDEROS -LOOP RECORDER 2019 Surgeries: Yes (ablation-svt/a-fib, LOOP RECORDER 01/02/19,bicuspid valve replacement) Cardiac, Tonsillectomy, Valve Replacement Respiratory: No Currently Using CPAP: No Currently Using BIPAP: No Cardiac: Yes (ASCEND. THORACIC AORTIC ANEURYSM;BICUSPID AORTIC VALVE;AFIB/RVR;V-TACH;SVT ) Aneurysm, Atrial Fibrillation, Heart Murmur, High Cholesterol, Hypertension, Irregular Heartbeat, Palpitations, Valvular Heart Disease Neurological: Yes Headaches /Migraines Genitourinary: No Gastrointestinal: No Musculoskeletal: Yes Chronic Back Pain Endocrine: Yes (OBESITY) HEENT: No Cancer: No Psychosocial: No Integumentary: No Blood Disorders: No Adverse Reaction/Blood Tranf: No Family Medical History Hypertension SOCIAL HISTORY: -SMOKES UP TO 2 1/2 PPD, CUTTING DOWN TO 1/2 PPD -ETOH--OCCASIONAL USE -DRUGS--SMOKES MARIJUANA DAILY. PAST SURGICAL HISTORY: -TONSILLECTOMY -MULTIPLE CARDIOVERSIONS FOR ATRIAL FIB/FLUTTER WITH RVR/SVT -CARDIAC ABLATIONS X 3--LAST ONE 02/16/[address] MEDEROS -LOOP RECORDER PLACEMENT 01/02/2019 -CARDIAC CATHS--LAST ONE HERE 11/27/19, PRIOR TO AORTIC VALVE REPLACEMENT--NO INTERVENTION, NORMAL CORONARY ARTERIES, SEVERE AORTIC STENOSIS AND ASCENDING THORACIC AORTA ANEURYSM. -MECHANICAL AORTIC VALVE REPLACEMENT 12/01/19 AT [facility] Physical Exam Vital Signs Vital Signs - First Documented 01/09/22 17:00 Temp 36.4 Pulse 94 Resp 18 B/P (MAP) 138/79 (98) Pulse Ox 99 Capillary Refill : Height, Weight, BMI Height: 5'11.00" Weight: 308lbs. 0.0oz. 139.413991zd; 44.00 BMI Method:Stated General Appearance: No Apparent Distress Eyes: Bilateral Eye Normal Inspection, Bilateral Eye PERRL, Bilateral Eye EOMI HEENT: Other (Left posterior wisdom tooth with erosion and swelling. No dysphonia drooling or dysphagia) Respiratory: Lungs Clear Progress/Results/Core Measures Suspected Sepsis SIRS Temperature: Pulse: Respiratory Rate: Blood Pressure / Mean: Results/Orders Vital Signs/I&O 01/09/22 17:00 Temp 36.4 Pulse 94 Resp 18 B/P (MAP) 138/79 (98) Pulse Ox 99 Capillary Refill : Departure Communication (Admissions) Dental erosion with dental caries without obvious soft tissue infection. Patient has follow-up appointment with dentist Impression Primary Impression: Pain due to dental caries Disposition: HOME, SELF-CARE Condition: Stable Departure-Patient Inst. Decision time for Depature: 17:01 Referrals: YESSENIA HARDING APRN (PCP) Primary Care Physician [facility] (Family) Primary Care Physician Patient Instructions: Dental Pain ED Add. Discharge Instructions: Please take newly medications as directed and follow up with your dentist as scheduled. Scripts Tramadol HCl (Tramadol HCl) 50 Mg Tablet 50 MG PO Q6H, #10 TAB Prov: TRUPTI SANCHEZ DO 01/09/22 Clindamycin HCl (Clindamycin HCl) 300 Mg Capsule 300 MG PO QID, #40 CAP Prov: TRUPTI SANCHEZ DO 01/09/22 TRUPTI SANCHEZ DO January 09, 2022 17:03
[2022-01-09] MEDS ORDERED: TRAM50TA3 PO (17:05)
[2022-01-09] MEDS ORDERED: CLIN-144 PO (17:05)
[2022-01-09 17:12] VITALS: BP 139/87
== END 2022-01-09 17:12 | disposition home or self-care (01) ==
LOC: EDUNIT# 16:08 → ER FS 16:09
DX: K02.9 Dental caries, unspecified (principal); E66.9 Obesity, unspecified; F17.210 Nicotine dependence, cigarettes, uncomplicated; Z68.41 Body mass index [BMI] 40.0-44.9, adult
CPT/HCPCS: 99285

== ENCOUNTER 2022-03-09 15:17 | Emergency (ER) | payer SELFPAY ==
[~2022-03-09] VITALS: Ht 180 cm; Wt 143.0 kg
[2022-03-09] MEDS ORDERED: NS IV 1000 ML 1,000 ML IV STA (15:37)
[2022-03-09] MEDS ORDERED: ORPHENADRINE 60 MG/2 ML (NORFLEX) AMP (ED ONLY) IVP STA (15:37)
[2022-03-09 15:44] LABS: BASOPHILS % (AUTO) 1 % (0-10); EOSINOPHILS # (AUTO) 0.3 10^3/uL (0.0-0.3); EOSINOPHILS % (AUTO) 3 % (0-10); HEMATOCRIT 47 % (40-54); LYMPHOCYTES # (AUTO) 2.8 10^3/uL (1.0-4.0); LYMPHOCYTES % (AUTO) 32 % (12-44); MEAN CORPUSCULAR HEMOGLOBIN 30 pg (25-34); MEAN CORPUSCULAR HGB CONC 36 g/dL (32-36); MEAN CORPUSCULAR VOLUME 82 fL (80-99); MONOCYTES # (AUTO) 0.6 10^3/uL (0.0-1.0); MONOCYTES % (AUTO) 7 % (0-12); NEUTROPHILS # (AUTO) 4.9 10^3/uL (1.8-7.8); NEUTROPHILS % (AUTO) 57 % (42-75); PLATELET COUNT 240 10^3/uL (130-400); WHITE BLOOD COUNT 8.7 10^3/uL (4.3-11.0)
[2022-03-09] MEDS ORDERED: CATHETER FLUSH 10 ML SYR IV PRN (15:45)
[2022-03-09] MEDS ORDERED: HOLD METFORMIN - RECEIVED CONTRAST 20 ML VIAL IV SCH (15:45)
[2022-03-09] MEDS ORDERED: NS 100 ML (IVPB) BAG IV ONE (15:45)
[2022-03-09] MEDS ORDERED: IOHEXOL 350 MG/ML 100 ML (OMNIPAQUE 350) VIAL IV ONE (15:45)
--- NOTE | 2022-03-09 15:45 | ED General ---
General Chief Complaint: Chest Pain Stated Complaint: CP,RT SHOULDER PAIN Source of Information: Patient, Old Records History of Present Illness Date Seen by Provider: Mar 09, 2022 Time Seen by Provider: 15:19 Initial Comments 36-year-old male presenting with complaints of chest pain along the upper part of his sternum and the right sternal border. He also has been having right shoulder pain. He thinks that he may have strained or pulled something to have caused his right shoulder pain a few months ago. He had been filling up with it hoping it would just get better on its own. Over the last week or more he has had chest pain along the right sternal border and upper part of his sternum. It is reproducible with palpation and worsened with straining or movement. 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 This does put more strain on his shoulder as well as his chest. He has had prior open heart surgery and mechanical valve replacement for which he takes warfarin. He denies any direct trauma to his chest. He was seen in urgent care yesterday for the same symptoms and the did not find anything there but had recommended he come to the ER. 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 Since he still had the pains today he came to the ED this afternoon. If he is just resting on the bed or not moving he is not really having pain but with palpation of chest wall along upper part of sternum and right sternal border or movement of the right shoulder he has pain. Timing/Duration: 1 Week Severity: Moderate Modifying Factors: worse with Movement Associated Systoms: Chest Pain (reproducible chest pains to anterior upper sternum and right sternal border); No Cough, No Diaphoresis, No Fever/Chills, No Headaches, No Loss of Appetite, No Malaise, No Nausea/Vomiting, No Rash, No Seizure, No Shortness of Air, No Syncope, No Weakness Allergies and Home Medications Allergies Coded Allergies: hydrocodone (Verified Allergy, Unknown, itching, 02/19/20) Patient Home Medication List Home Medication List Reviewed: Yes Aspirin (Aspirin EC) 81 Mg Tablet., 81 MG PO DAILY Prescribed by: MOOK SAINI on 06/30/21 1501 Atorvastatin Calcium (Atorvastatin Calcium) 40 Mg Tablet, 40 MG PO HS, (Reported) Entered as Reported by: ZAHRA DURBIN on 06/30/21 1139 Clindamycin HCl (Clindamycin HCl) 300 Mg Capsule, 300 MG PO QID Prescribed by: TRUPTI SANCHEZ on 01/09/22 1705 Diltiazem HCl (Diltiazem 24Hr ER) 120 Mg Cap.er.24h, 120 MG PO HS, (Reported) Entered as Reported by: ZAHRA DURBIN on 07/16/20 0909 Metoprolol Succinate (Metoprolol Succinate) 200 Mg Tab.er.24h, 200 MG PO HS, (Reported) Entered as Reported by: ZAHRA DURBIN on 12/22/19 1139 Ondansetron (Ondansetron Odt) 4 Mg Tab.rapdis, 4 MG PO Q6H PRN for NAUSEA/VOMITING-1ST LINE Prescribed by: REX JOLLEY on 10/16/21 1039 Tramadol HCl (Tramadol HCl) 50 Mg Tablet, 50 MG PO Q6H Prescribed by: TRUPTI SANCHEZ on 01/09/22 1706 Warfarin Sodium (Warfarin Sodium) 10 Mg Tablet, 5 MG PO SUN,SUN, (Reported) Entered as Reported by: ZAHRA DURBIN on 07/16/20 0911 Warfarin Sodium (Warfarin Sodium) 10 Mg Tablet, 10 MG PO ,,,,SAT, (Reported) Entered as Reported by: ZAHRA DURBIN on 07/16/20 0911 Review of Systems Review of Systems Constitutional: No chills, No fever EENTM: no symptoms reported Respiratory: no symptoms reported Cardiovascular: see HPI Gastrointestinal: No nausea, No vomiting Genitourinary: no symptoms reported Musculoskeletal: joint pain (right shoulder pain and upper chest wall pain along sternum and right sternal border) Skin: No rash Psychiatric/Neurological: Denies Headache Hematologic/Lymphatic: Denies Blood Clots; Easy Bleeding (Taking warfarin for mechanical valve), Easy Bruising (Taking warfarin for mechanical valve) Immunological/Allergic: no symptoms reported Past Nkofsob-Dtsyjw-Kwktfn Hx Patient Social History Tobacco Use?: No Use of E-Cig and/or Vaping dev: No Substance use?: Yes Substance type: Marijuana Alcohol Use?: Yes Alcohol type: Beer Alcohol Frequency: Once in a while Immunizations Up To Date Tetanus Booster (TDap): Less than 5yrs First/Initial COVID19 Vaccinat: APR Second COVID19 Vaccination Cristian: DID NOT GET 2ND ONE BECAUSE IT MADE HIM SICK. 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 MEDEROS -LOOP RECORDER 2019 Surgeries: Yes (ablation-svt/a-fib, LOOP RECORDER 01/02/19,bicuspid valve replacement) Cardiac, Tonsillectomy, Valve Replacement Respiratory: No Currently Using CPAP: No Currently Using BIPAP: No Cardiac: Yes (ASCEND. THORACIC AORTIC ANEURYSM;BICUSPID AORTIC VALVE;AFIB/RVR;V-TACH;SVT ) Aneurysm, Atrial Fibrillation, Heart Murmur, High Cholesterol, Hypertension, Irregular Heartbeat, Palpitations, Valvular Heart Disease Neurological: Yes Headaches /Migraines Genitourinary: No Gastrointestinal: No Musculoskeletal: Yes Chronic Back Pain Endocrine: Yes (OBESITY) HEENT: No Cancer: No Psychosocial: No Integumentary: No Blood Disorders: No Adverse Reaction/Blood Tranf: No Family Medical History Hypertension SOCIAL HISTORY: -SMOKES UP TO 2 1/2 PPD, CUTTING DOWN TO 1/2 PPD -ETOH--OCCASIONAL USE -DRUGS--SMOKES MARIJUANA DAILY. PAST SURGICAL HISTORY: -TONSILLECTOMY -MULTIPLE CARDIOVERSIONS FOR ATRIAL FIB/FLUTTER WITH RVR/SVT -CARDIAC ABLATIONS X 3--LAST ONE 02/16/[address] MEDEROS -LOOP RECORDER PLACEMENT 01/02/2019 -CARDIAC CATHS--LAST ONE HERE 11/27/19, PRIOR TO AORTIC VALVE REPLACEMENT--NO INTERVENTION, NORMAL CORONARY ARTERIES, SEVERE AORTIC STENOSIS AND ASCENDING THORACIC AORTA ANEURYSM. -MECHANICAL AORTIC VALVE REPLACEMENT 12/01/19 AT [facility] Physical Exam Vital Signs Vital Signs - First Documented 03/09/22 15:20 Temp 36.8 Pulse 89 Resp 18 B/P (MAP) 119/76 (90) Pulse Ox 96 O2 Delivery Room Air Capillary Refill : Height, Weight, BMI Height: 5'11.00" Weight: 308lbs. 0.0oz. [id number]; 44.00 BMI Method:Stated General Appearance: No Apparent Distress, Obese HEENT: PERRL/EOMI, Pharynx Normal Neck: Full Range of Motion, Normal Inspection, Non Tender, Supple Respiratory: No Chest Non Tender (Tender to palpation on right sternal border and upper part of the sternum. There is no crepitus or step-off); Lungs Clear, Normal Breath Sounds, No Accessory Muscle Use, No Respiratory Distress Cardiovascular: Regular Rate, Rhythm, Normal Peripheral Pulses, Other (Click from mechanical valve) Gastrointestinal: Normal Bowel Sounds, No Pulsatile Mass, Non Tender, Soft Rectal: Deferred Extremity: Normal Capillary Refill, Normal Inspection, No Calf Tenderness, No Pedal Edema Neurologic/Psychiatric: Alert, Oriented x3, Normal Mood/Affect, dry roaster II-XII Norm as Tested Skin: Normal Color, Warm/Dry; No Ecchymosis, No Rash Progress/Results/Core Measures Suspected Sepsis SIRS Temperature: Pulse: Respiratory Rate: Laboratory Tests 03/09/22 15:30: White Blood Count 8.7 Blood Pressure / Mean: Laboratory Tests 03/09/22 15:30: Creatinine 0.80, INR Comment 1.9H, Platelet Count 240, Total Bilirubin 0.5 Results/Orders Lab Results Laboratory Tests Test 03/09/22 15:25 03/09/22 15:30 Range/Units Urine Color YELLOW Urine Clarity CLEAR Urine pH 6.0 5-9 Urine Specific [place] 1.020 1.016-1.022 Urine Protein NEGATIVE NEGATIVE Urine Glucose (UA) NEGATIVE NEGATIVE Urine Ketones NEGATIVE NEGATIVE Urine Nitrite NEGATIVE NEGATIVE Urine Bilirubin NEGATIVE NEGATIVE Urine Urobilinogen 0.2 < = 1.0 MG/DL Urine Leukocyte Esterase NEGATIVE NEGATIVE Urine RBC (Auto) TRACE-I H NEGATIVE Urine RBC 0-2 /HPF Urine WBC RARE /HPF Urine Squamous Epithelial Cells RARE /HPF Urine Crystals NONE /LPF Urine Bacteria NEGATIVE /HPF Urine Casts PRESENT /LPF Urine Hyaline Casts RARE /LPF Urine Mucus SMALL H /LPF Urine Culture Indicated NO White Blood Count 8.7 4.3-11.0 10^3/uL Red Blood Count 5.73 H 4.30-5.52 10^6/uL Hemoglobin 17.0 13.3-17.7 g/dL Hematocrit 47 40-54 % Mean Corpuscular Volume 82 80-99 fL Mean Corpuscular Hemoglobin 30 25-34 pg Mean Corpuscular Hemoglobin Concent 36 32-36 g/dL Red Cell Distribution Width 12.6 10.0-14.5 % Platelet Count 240 130-400 10^3/uL Mean Platelet Volume 10.0 9.0-12.2 fL Immature Granulocyte % (Auto) 1 % Neutrophils (%) (Auto) 57 42-75 % Lymphocytes (%) (Auto) 32 12-44 % Monocytes (%) (Auto) 7 0-12 % Eosinophils (%) (Auto) 3 0-10 % Basophils (%) (Auto) 1 0-10 % Neutrophils # (Auto) 4.9 1.8-7.8 10^3/uL Lymphocytes # (Auto) 2.8 1.0-4.0 10^3/uL Monocytes # (Auto) 0.6 0.0-1.0 10^3/uL Eosinophils # (Auto) 0.3 0.0-0.3 10^3/uL Basophils # (Auto) 0.0 0.0-0.1 10^3/uL Immature Granulocyte # (Auto) 0.1 0.0-0.1 10^3/uL Prothrombin Time 22.3 H 12.2-14.7 SEC INR Comment 1.9 H 0.8-1.4 Activated Partial Thromboplast Time 48 H 24-35 SEC Sodium Level 138 135-145 MMOL/L Potassium Level 4.1 3.6-5.0 MMOL/L Chloride Level 104 98-107 MMOL/L Carbon Dioxide Level 23 21-32 MMOL/L Anion Gap 11 5-14 MMOL/L Blood Urea Nitrogen 10 7-18 MG/DL Creatinine 0.80 0.60-1.30 MG/DL Estimat Glomerular Filtration Rate 119 BUN/Creatinine Ratio 13 Glucose Level 114 H 70-105 MG/DL Calcium Level 9.1 8.5-10.1 MG/DL Corrected Calcium 8.5-10.1 MG/DL Magnesium Level 2.0 1.6-2.4 MG/DL Total Bilirubin 0.5 0.1-1.0 MG/DL Aspartate Amino Transf (AST/SGOT) 22 5-34 U/L Alanine Aminotransferase (ALT/SGPT) 20 0-55 U/L Alkaline Phosphatase 67 40-136 U/L Myoglobin 37.0 <72.0 NG/ML Troponin I < 0.30 <0.30 NG/ML Pro-B-Type Natriuretic Peptide 21.9 <125.0 PG/ML Total Protein 7.4 6.4-8.2 GM/DL Albumin 4.6 H 3.2-4.5 GM/DL Lipase 24 8-78 U/L My Orders Orders - YOVANI BRONSON MD Ekg Tracing (03/09/22 15:19) Cbc With Automated Diff (03/09/22 15:19) Magnesium (03/09/22 15:19) Comprehensive Metabolic Panel (03/09/22 15:19) Myoglobin Serum (03/09/22 15:19) Protime With Inr (03/09/22 15:19) Partial Thromboplastin Time (03/09/22 15:19) O2 (03/09/22 15:19) Monitor-Rhythm Ecg Trace Only (03/09/22 15:19) Ed Iv/Invasive Line Start (03/09/22 15:19) Lipase (03/09/22 15:19) Troponin I Fs (03/09/22 15:19) Probnp Fs (03/09/22 15:19) Ua Culture If Indicated (03/09/22 15:19) Dexamethasone Injection (Decadron Inje (03/09/22 15:37) Orphenadrine Inj (Ed Only) (Norflex Inje (03/09/22 15:37) Ns Iv 1000 Ml (Sodium Chloride 0.9%) (03/09/22 15:37) Ct Angio Chest W (03/09/22 15:37) Iohexol Injection (Omnipaque 350 Mg/Ml 1 (03/09/22 15:45) Received Contrast (Hold Metformin- Contr (03/09/22 15:45) Sodium Chloride Flush (Catheter Flush Sy (03/09/22 15:45) Ns (Ivpb) (Sodium Chloride 0.9% Ivpb Bag (03/09/22 15:45) Orthopedic Equiment (03/09/22 16:47) Ed Ortho/Other Supplies Order (03/09/22 16:47) Medications Given in ED Current Medications Medications Dose Ordered Sig/Helder Route Start Time Stop Time Status Last Admin Dose Admin Iohexol 100 ml ONCE ONCE IV 03/09/22 15:45 03/09/22 15:46 DC 03/09/22 16:05 100 ML Sodium Chloride 10 ml NEEDED PRN IV 03/09/22 15:45 03/09/22 16:05 10 ML Sodium Chloride 100 ml ONCE ONCE IV 03/09/22 15:45 03/09/22 15:46 DC 03/09/22 16:05 100 ML Vital Signs/I&O 03/09/22 15:20 Temp 36.8 Pulse 89 Resp 18 B/P (MAP) 119/76 (90) Pulse Ox 96 O2 Delivery Room Air Capillary Refill : Progress Note #1: Progress Note Check electrocardiogram as well as labs. To evaluate his sternum will obtain a CT scan with IV contrast to also look at his aorta. From a pain standpoint try giving Decadron for a steroid to help with pain, Norflex for muscle relaxer, normal saline 1 L wide open for helping with hydration. Differential diagnosis includes chest wall strain, costochondritis, rotator cuff injury, thoracic aneurysm Progress Note #2: Time: 16:19 Progress Note Labs are all stable without acute significant abnormality. Troponin is less than 0.3. His INR is 1.9. Electrocardiogram shows no acute significant change from his prior tracings. There is no ST elevation. CT scan of his chest shows stable aortic aneurysm at 4.5 cm. There is no acute pathology in his chest. He does have evidence of mechanical valve replacement no bony abnormality to account for his sternal pain. Can offer to try treating him with muscle relaxer and steroid so would not interfere with his warfarin. Otherwise trying to rest and limit use of his shoulder and chest wall muscles should help with his pain as well. He may still need to follow-up with orthopedics about his shoulder. We will have him check back with the clinic about this. Progress Note #3: Time: 16:45 Progress Note Patient reports this chest wall pain is little better after medication. He still has pain in the right shoulder with movement. Reassured patient about all of the test results. Well continue the steroid as an anti-inflammatory and then have the muscle relaxer to try and help with his chest wall and shoulder muscles. Use a sling for the next 3 to 4 days to try and help rest his shoulder. We will also send with a note for light duty at work if they are able to do that. Encouraged to check with the clinic about follow-up for orthopedics and they could determine if an MRI is something that could be done with his artificial valve and his loop recorder. ECG Initial ECG Impression Date: Mar 09, 2022 Initial ECG Impression Time: 15:26 Initial ECG Rate: 83 Initial ECG Rhythm: Normal Sinus Initial ECG Comparisson: Unchanged Comment Normal sinus rhythm with a heart rate of 83 bpm. UT interval 158 ms. Incomplete right bundle branch block. No acute ST elevation. QT interval 357 ms with a QTc interval 397 ms. Overall appears similar to prior tracings in the system. Diagnostic Imaging Diagonstic Imaging: CT Plain Films/CT/US/NM/MRI: chest Comments NAME: TRUPTI JUAREZ [facility] REC#: [id number] PT STATUS: REG ER : 1985 PHYSICIAN: YOVANI BRONSON MD ADMIT DATE: 03/09/22/ER FS Draft Date of Exam:03/09/22 CT ANGIO CHEST W EXAMINATION: CT angiography of the chest. TECHNIQUE: Contrast enhanced thin section helical images were obtained through the chest with intravenous contrast timed for the optimal opacification of the arterial structures per CTA protocol. Post-processing, reconstructions and interpretation of angiographic images of the vessels was performed. 3D MIP reconstructions were performed and reviewed. All CT scans use one or more of the following dose optimizing techniques: automated exposure control, MA and/or KvP adjustment based on patient size and exam type or iterative reconstruction. HISTORY: Shoulder pain, aneurysm. COMPARISON: 12/28/2022 FINDINGS: Ascending aortic aneurysm is stable measuring 4.5 x 4.5 cm. No acute aortic syndrome. No pulmonary embolism. There has been an aortic valve replacement. There is no edema or pneumonia. No pleural effusion. No pneumothorax. No suspicious nodules. There is no axillary or supraclavicular lymphadenopathy. There is no mediastinal lymphadenopathy. Heart size is normal. There are no coronary artery calcifications. No pericardial effusion. Aorta is normal in caliber. Limited views of the upper abdomen are unremarkable. There are no suspicious osseus lesions. IMPRESSION: No acute aortic syndrome or pulmonary embolism. Stable ascending aortic aneurysm. Dictated on workstation # [id number] Dict: 03/09/22 1612 Trans: 03/09/[address] [facility] [id number] Interpreted by: JORGE CHEUNG MD Electronically signed by: Reviewed: Reviewed by Me Departure Impression Primary Impression: Sternum pain Additional Impressions: Chronic right shoulder pain Costochondritis, acute Disposition: 01 HOME, SELF-CARE Condition: Stable Departure-Patient Inst. Decision time for Depature: 16:55 Referrals: YESSENIA HARDING APRN (PCP) Primary Care Physician [facility]JENNIFER (Family) Primary Care Physician Patient Instructions: Costochondritis (DC), Shoulder Pain ED Add. Discharge Instructions: Your labs, electrocardiogram and CT scan all appear stable. There is no evidence of damage to the sternum or the wires from previous surgery. Try taking the steroid and muscle relaxer to help with your pain and inflammation. Check back with the clinic about possible orthopedic referral for your shoulder. They may have to consider an MRI to check your rotator cuff and shoulder but need to know if your valve is safe to go through an MRI and if the loop recorder needs to be removed to get an MRI. Try resting your shoulder and arm by using a sling for the next 3 to 4 days. For severe pain you can try taking the hydrocodone at night to help you rest and take Benadryl or an antihistamine with it to help with the itching. All discharge instructions reviewed with patient and/or family. Voiced understanding. Scripts Hydrocodone/Acetaminophen (Hydrocodone-Acetamin 5-325 mg) 5 Mg-325 Mg Tablet 1 TAB PO Q12H PRN for PAIN-SEVERE (8-10) for 5 Days, #10 TAB 0 Refills Prov: YOVANI BRONSON MD 03/09/22 Methocarbamol (Methocarbamol) 750 Mg Tablet 1500 MG PO Q8H PRN for shoulder/chest wall pain for 10 Days, #60 TAB 0 Refills Prov: YOVANI BRONSON MD 03/09/22 Prednisone (Prednisone) 20 Mg Tab 40 MG PO DAILY for shoulder pain for 5 Days, #10 TAB 0 Refills Prov: YOVANI BRONSON MD 03/09/22 Work/School Note: Work Release Form Date Seen in the Emergency Department: Mar 09, 2022 Return to Work: Mar 13, 2022 Restrictions: Need Release from Doctor Other Restrictions Listed Below: Limit use of right shoulder/arm x2 weeks. Nothing overhead. Restrictions: No push/box puller 20 pounds. YOVANI BRONSON MD Mar 09, 2022 15:45
[2022-03-09 15:46] LABS: BILIRUBIN,URINE NEGATIVE (NEGATIVE); CLARITY,URINE CLEAR; COLOR,URINE YELLOW; GLUCOSE, URINE (UA) NEGATIVE (NEGATIVE); KETONES,URINE NEGATIVE (NEGATIVE); LEUKOCYTE ESTERASE ,URINE NEGATIVE (NEGATIVE); NITRITE,URINE NEGATIVE (NEGATIVE); PROTEIN,URINE NEGATIVE (NEGATIVE)
[2022-03-09 15:56] LABS: BACTERIA,URINE NEGATIVE /HPF; HYALINE CASTS, URINE RARE /LPF; RBC,URINE 0-2 /HPF; SQUAMOUS EPITHELIAL CELL,UR RARE /HPF; WBC,URINE RARE /HPF
[2022-03-09 15:58] LABS: INR 1.9 (0.8-1.4); PROTHROMBIN TIME PATIENT 22.3 SEC (12.2-14.7)
[2022-03-09 16:06] LABS: BUN/CREATININE RATIO 13; CALCIUM 9.1 MG/DL (8.5-10.1); CARBON DIOXIDE 23 MMOL/L (21-32); CHLORIDE 104 MMOL/L (98-107); GFR ESTIMATED 119; GLUCOSE 114 MG/DL (70-105); POTASSIUM 4.1 MMOL/L (3.6-5.0); SODIUM 138 MMOL/L (135-145)
[2022-03-09 16:07] LABS: ALANINE AMINOTRANSFERASE 20 U/L (0-55); ALBUMIN 4.6 GM/DL (3.2-4.5); ALKALINE PHOSPHATASE 67 U/L (40-136); BILIRUBIN,TOTAL 0.5 MG/DL (0.1-1.0); LIPASE 24 U/L (8-78); TOTAL PROTEIN 7.4 GM/DL (6.4-8.2)
--- NOTE | 2022-03-09 16:19 | Diagnostic Imaging Report ---
EXAMINATION: CT angiography of the chest. TECHNIQUE: Contrast enhanced thin section helical images were obtained through the chest with intravenous contrast timed for the optimal opacification of the arterial structures per CTA protocol. Post-processing, reconstructions and interpretation of angiographic images of the vessels was performed. 3D MIP reconstructions were performed and reviewed. All CT scans use one or more of the following dose optimizing techniques: automated exposure control, MA and/or KvP adjustment based on patient size and exam type or iterative reconstruction. HISTORY: Shoulder pain, aneurysm. COMPARISON: 12/28/2022 FINDINGS: Ascending aortic aneurysm is stable measuring 4.5 x 4.5 cm. No acute aortic syndrome. No pulmonary embolism. There has been an aortic valve replacement. There is no edema or pneumonia. No pleural effusion. No pneumothorax. No suspicious nodules. There is no axillary or supraclavicular lymphadenopathy. There is no mediastinal lymphadenopathy. Heart size is normal. There are no coronary artery calcifications. No pericardial effusion. Aorta is normal in caliber. Limited views of the upper abdomen are unremarkable. There are no suspicious osseus lesions. IMPRESSION: No acute aortic syndrome or pulmonary embolism. Stable ascending aortic aneurysm. Dictated by: Dictated on workstation # [id number]
[2022-03-09 16:53] VITALS: BP 118/72
[2022-03-09] MEDS ORDERED: PRD20T PO (16:54)
[2022-03-09] MEDS ORDERED: METH-732 PO (16:54)
[2022-03-09] MEDS ORDERED: ACHD5005 PO (16:54)
== END 2022-03-09 16:58 | disposition home or self-care (01) ==
LOC: EDUNIT# 15:17 → ER FS 15:18
DX: M94.0 Chondrocostal junction syndrome [Tietze] (principal); G89.29 Other chronic pain; M25.511 Pain in right shoulder; E66.9 Obesity, unspecified; Z68.41 Body mass index [BMI] 40.0-44.9, adult; Z95.4 Presence of other heart-valve replacement; Z79.01 Long term (current) use of anticoagulants
CPT/HCPCS: 36415; 71275; 80053; 81000; 83690; 83735; 83874; 83880; 84484; 85025; 85610; 85730; 93005; 93041; 99284; A4565; Q9967

== ENCOUNTER 2022-04-03 00:07 | Emergency (ER) | payer SELFPAY ==
[~2022-04-03] VITALS: Ht 180.3 cm; Wt 144.4 kg
[~2022-04-03 00:07] MED LIST changes: +METH-732 PO
[2022-04-03] MEDS ORDERED: AUGMENTIN 875 MG TAB (AMOXICILLIN/CLAVULANATE) PO STA (00:18)
--- NOTE | 2022-04-03 00:27 | ED EENT ---
History of Present Illness General Chief Complaint: Dental Problems/Pain Stated Complaint: DENTAL PAIN Source: patient Exam Limitations: no limitations History of Present Illness Date Seen by Provider: Apr 03, 2022 Time Seen by Provider: 00:09 Initial Comments 36-year-old male coming in due to concerns for dental infection with pain. His bottom left molar has been causing pain for the past day or so. Its previously been broken, but now he has noticed some swelling to his face with pain. The pain is constant, severe, throbbing, worse with chewing, better with rest. He is taken hydrocodone which has helped some. He is otherwise denying any difficulty swallowing, difficulty breathing, difficulty speaking, or any other concerns. Allergies and Home Medications Allergies Coded Allergies: hydrocodone (Verified Allergy, Unknown, itching, 02/19/20) Patient Home Medication List Home Medication List Reviewed: Yes Aspirin (Aspirin EC) 81 Mg Tablet.dr, 81 MG PO DAILY Prescribed by: MOOK SAINI on 06/30/21 1501 Atorvastatin Calcium (Atorvastatin Calcium) 40 Mg Tablet, 40 MG PO HS, (Reported) Entered as Reported by: ZAHRA DURBIN on 06/30/21 1139 Clindamycin HCl (Clindamycin HCl) 300 Mg Capsule, 300 MG PO QID Prescribed by: TRUPTI SANCHEZ on 01/09/22 1705 Diltiazem HCl (Diltiazem 24Hr ER) 120 Mg Cap.er.24h, 120 MG PO HS, (Reported) Entered as Reported by: ZAHRA DURBIN on 07/16/20 0909 Hydrocodone/Acetaminophen (Hydrocodone-Acetamin 5-325 mg) 5 Mg-325 Mg Tablet, 1 TAB PO Q12H PRN for PAIN-SEVERE (8-10) Prescribed by: YOVANI BRONSON on 03/09/22 1655 Methocarbamol (Methocarbamol) 750 Mg Tablet, 1,500 MG PO Q8H PRN for shoulder/chest wall pain Prescribed by: YOVANI BRONSON on 03/09/22 1654 Metoprolol Succinate (Metoprolol Succinate) 200 Mg Tab.er.24h, 200 MG PO HS, (Reported) Entered as Reported by: ZAHRA DURBIN on 12/22/19 1139 Ondansetron (Ondansetron Odt) 4 Mg Tab.rapdis, 4 MG PO Q6H PRN for NAUSEA/VOMITING-1ST LINE Prescribed by: REX JOLLEY on 10/16/21 1039 Prednisone (Prednisone) 20 Mg Tab, 40 MG PO DAILY Prescribed by: YOVANI BRONSON on 03/09/22 1654 Tramadol HCl (Tramadol HCl) 50 Mg Tablet, 50 MG PO Q6H Prescribed by: TRUPTI SANCHEZ on 01/09/22 1706 Warfarin Sodium (Warfarin Sodium) 10 Mg Tablet, 5 MG PO MON,SUN, (Reported) Entered as Reported by: ZAHRA DURBIN on 07/16/20 0911 Warfarin Sodium (Warfarin Sodium) 10 Mg Tablet, 10 MG PO SARABIA,,,,SAT, (Reported) Entered as Reported by: ZAHRA DURBIN on 07/16/20 0911 Review of Systems Review of Systems Constitutional: No fever Eyes: Denies Blurred Vision Ears: No Symptoms Reported Nose: no symptoms reported Mouth: see HPI Throat: no symptoms reported Respiratory: no symptoms reported Cardiovascular: no symptoms reported Gastrointestinal: no symptoms reported Musculoskeletal: no symptoms reported Neurological: No Symptoms Reported Hematologic/Lymphatic: No Symptoms Reported Immunological/Allergic: no symptoms reported All Other Systems Reviewed Negative Unless Noted: Yes Past Bbvafhi-Ngpvwh-Nfefum Hx Patient Social History Substance use?: No Immunizations Up To Date Tetanus Booster (TDap): Less than 5yrs First/Initial COVID19 Vaccinat: APR Second COVID19 Vaccination Cristian: DID NOT GET 2ND ONE BECAUSE IT MADE HIM SICK. Third COVID19 Vaccination Date: APR Seasonal Allergies Seasonal Allergies: No Past Medical History Surgery/Hospitalization HX: valve replacement Surgeries: Yes (ablation-svt/a-fib, LOOP RECORDER 01/02/19,bicuspid valve replacement) Cardiac, Tonsillectomy, Valve Replacement Respiratory: No Currently Using CPAP: No Currently Using BIPAP: No Cardiac: Yes (ASCEND. THORACIC AORTIC ANEURYSM;BICUSPID AORTIC VALVE;AFIB/RVR;V -TACH;SVT ) Aneurysm, Atrial Fibrillation, Heart Murmur, High Cholesterol, Hypertension, Irregular Heartbeat, Palpitations, Valvular Heart Disease Neurological: Yes Headaches /Migraines Genitourinary: No Gastrointestinal: No Musculoskeletal: Yes Chronic Back Pain Endocrine: Yes (OBESITY) HEENT: No Cancer: No Psychosocial: No Integumentary: No Blood Disorders: No Adverse Reaction/Blood Tranf: No Family Medical History Hypertension SOCIAL HISTORY: -SMOKES UP TO 2 1/2 PPD, CUTTING DOWN TO 1/2 PPD -ETOH--OCCASIONAL USE -DRUGS--SMOKES MARIJUANA DAILY. PAST SURGICAL HISTORY: -TONSILLECTOMY -MULTIPLE CARDIOVERSIONS FOR ATRIAL FIB/FLUTTER WITH RVR/SVT -CARDIAC ABLATIONS X 3--LAST ONE 02/16/[address] MEDEROS -LOOP RECORDER PLACEMENT 01/02/2019 -CARDIAC CATHS--LAST ONE HERE 11/27/19, PRIOR TO AORTIC VALVE REPLACEMENT--NO INTERVENTION, NORMAL CORONARY ARTERIES, SEVERE AORTIC STENOSIS AND ASCENDING THORACIC AORTA ANEURYSM. -MECHANICAL AORTIC VALVE REPLACEMENT 12/01/19 AT [facility] Physical Exam Height, Weight, BMI Height: 5'11.00" Weight: 308lbs. 0.0oz. [id number]; 44.00 BMI Method:Stated General Appearance: WD/WN, no apparent distress Eyes: bilateral eye normal inspection Ears: bilateral ear auricle normal Nose: normal inspection Mouth/Throat: pharynx normal, dental tenderness; No pharynx swelling, No pharynx tenderness, No tongue swollen, No tonsillar exudate, No trismus, No uvula swelling, No voice changes Neck: non-tender, full range of motion, supple, normal inspection Cardiovascular: regular rate, rhythm, no edema, no murmur Respiratory: chest non-tender, lungs clear, normal breath sounds, no respiratory distress, no accessory muscle use Gastrointestinal: normal bowel sounds, non tender, soft; No distended, No guarding Neurologic/Psychiatric: no motor/sensory deficits, alert, normal mood/affect Skin: normal color, warm/dry Progress/Results/Core Measures Results/Orders My Orders Orders - REX JOLLEY MD Amoxicillin/Clavulanate Tablet (Augmenti (04/03/22 00:18) Ketorolac Injection (Toradol Injection) (04/03/22 00:30) Oxycodone Immediate Rel Tablet (Oxyir Ta (04/03/22 00:30) Progress Progress Note : Progress Note 36-year-old male with above history coming in due to concerns for dental infection. ABCs were intact and vitals were stable on presentation. I do not really noticed any type of swelling on his face on exam. I do not palpate any abscess, although he does have a broken tooth that he is tender in his bottom left molar. We will treat him for infection and have him follow-up with a dentist. He was then discharged home in stable condition with strict return precautions. Departure Impression Primary Impression: Dental infection Disposition: 01 HOME, SELF-CARE Condition: Stable Departure-Patient Inst. Decision time for Depature: 00:26 Referrals: YESSENIA HARDING APRN (PCP) Primary Care Physician [facility] (Family) Primary Care Physician Patient Instructions: Dental Pain ED Add. Discharge Instructions: You will be on antibiotics for the next week. Follow-up with a dentist, if you do not have 1 you can call [facility] and they can set you up with 1. This problem will not get better until the tooth is pulled. Scripts Oxycodone HCl (Oxycodone HCl) 5 Mg Tablet 5 MG PO Q8H PRN for PAIN-SEVERE (8-10) for 2 Days, #6 TAB Prov: REX JOLLEY MD 04/03/22 Penicillin V Potassium (Penicillin V Potassium) 500 Mg Tablet 500 MG PO Q12H for 7 Days, #14 TAB Prov: REX JOLLEY MD 04/03/22 Work/School Note: Work Release Form Date Seen in the Emergency Department: Apr 03, 2022 Return to Work: Apr 04, 2022 Restrictions: No Restrictions REX JOLLEY MD Apr 03, 2022 00:27
[2022-04-03] MEDS ORDERED: OXYC5TAB PO (00:28)
[2022-04-03] MEDS ORDERED: PENI500T PO (00:28)
[2022-04-03] MEDS ORDERED: KETOROLAC 30 MG/ML VIAL IM ONE (00:30)
[2022-04-03 00:35] VITALS: BP 160/98
== END 2022-04-03 00:35 | disposition home or self-care (01) ==
LOC: EDUNIT# 00:07 → ER FS 00:10
DX: K04.7 Periapical abscess without sinus (principal); E66.9 Obesity, unspecified; F17.210 Nicotine dependence, cigarettes, uncomplicated; Z68.41 Body mass index [BMI] 40.0-44.9, adult; Z88.5 Allergy status to narcotic agent
CPT/HCPCS: 99284

== ENCOUNTER 2022-08-08 14:42 | Emergency (ER) | payer BC ==
[~2022-08-08] VITALS: Ht 180.3 cm; Wt 147.6 kg
[~2022-08-08 14:42] MED LIST changes: -GUAI10LI12 PO; +GUAI10LI14 PO; +OXYC5TAB PO; +PENI500T PO
[2022-08-08 14:45] VITALS: BP 135/81
--- NOTE | 2022-08-08 14:59 | ED EENT ---
History of Present Illness General Chief Complaint: Dental Problems/Pain Stated Complaint: DENTAL PAIN/JAW SWELLING Nursing Triage Note: Patient reports he had a tooth pulled 1-2 months ago, states he has been having pain and feeling something "sharp" where the tooth had been pulled for 1 week. He reports his left jaw/neck began swelling 2-3 days ago. Source: patient Exam Limitations: no limitations History of Present Illness Date Seen by Provider: Aug 08, 2022 Time Seen by Provider: 14:48 Initial Comments 36-year-old male with multiple cardiac issues, aortic valve replacement on warfarin coming in due to jaw swelling. Had a dental infection many months ago, had the tooth pulled 1 to 2 months ago. Feels like there is a piece of the tooth that they did not get refills some sharpness. Left jaw/neck began swelling 2 to 3 days ago. He had some old penicillin laying around the house, so he took 2 doses yesterday. Has not had anything today. The swelling has not really progressed today, has stayed stagnant. Denies any fever, difficulty swallowing, difficulty opening his mouth, difficulty speaking, or any other concerns. Allergies and Home Medications Allergies Coded Allergies: hydrocodone (Verified Allergy, Unknown, itching, 02/19/20) Patient Home Medication List Home Medication List Reviewed: Yes Amoxicillin/Potassium Clav (Amox Tr-K Clv 875-125 mg Tab) 875 Mg-125 Mg Tablet, 1 EACH PO BID Prescribed by: REX JOLLEY on 08/08/22 1549 Aspirin (Aspirin EC) 81 Mg Tablet.dr, 81 MG PO DAILY Prescribed by: MOOK SAINI on 06/30/21 1501 Atorvastatin Calcium (Atorvastatin Calcium) 40 Mg Tablet, 40 MG PO HS, (Reported) Entered as Reported by: ZAHRA DURBIN on 06/30/21 1139 Clindamycin HCl (Clindamycin HCl) 300 Mg Capsule, 300 MG PO QID Prescribed by: TRUPTI SANCHEZ on 01/09/22 1705 Diltiazem HCl (Diltiazem 24Hr ER) 120 Mg Cap.er.24h, 120 MG PO HS, (Reported) Entered as Reported by: ZAHRA DURBIN on 07/16/20 0909 Hydrocodone/Acetaminophen (Hydrocodone-Acetamin 5-325 mg) 5 Mg-325 Mg Tablet, 1 TAB PO Q12H PRN for PAIN-SEVERE (8-10) Prescribed by: YOVANI BRONSON on 03/09/22 1655 Methocarbamol (Methocarbamol) 750 Mg Tablet, 1,500 MG PO Q8H PRN for shoulder/chest wall pain Prescribed by: YOVANI BRONSON on 03/09/22 1654 Metoprolol Succinate (Metoprolol Succinate) 200 Mg Tab.er.24h, 200 MG PO HS, (Reported) Entered as Reported by: ZAHRA DURBIN on 12/22/19 1139 Ondansetron (Ondansetron Odt) 4 Mg Tab.rapdis, 4 MG PO Q6H PRN for NAUSEA/VOMITING-1ST LINE Prescribed by: REX JOLLEY on 10/16/21 1039 Oxycodone HCl (Oxycodone HCl) 5 Mg Tablet, 5 MG PO Q8H PRN for PAIN-SEVERE (8- 10) Prescribed by: REX JOLLEY on 04/03/22 0028 Penicillin V Potassium (Penicillin V Potassium) 500 Mg Tablet, 500 MG PO Q12H Prescribed by: REX JOLLEY on 04/03/22 0028 Prednisone (Prednisone) 20 Mg Tab, 40 MG PO DAILY Prescribed by: YOVANI BRONSON on 03/09/22 1654 Tramadol HCl (Tramadol HCl) 50 Mg Tablet, 50 MG PO Q6H Prescribed by: TRUPTI SANCHEZ on 01/09/22 1706 Warfarin Sodium (Warfarin Sodium) 10 Mg Tablet, 5 MG PO MON,FRI, (Reported) Entered as Reported by: ZAHRA DURBIN on 07/16/20 0911 Warfarin Sodium (Warfarin Sodium) 10 Mg Tablet, 10 MG PO SARABIA,,WE,TH,SAT, (Reported) Entered as Reported by: ZAHRA DURBIN on 07/16/20 0911 Review of Systems Review of Systems Constitutional: No fever Eyes: No Symptoms Reported Ears: No Symptoms Reported Nose: no symptoms reported Mouth: see HPI Throat: see HPI Respiratory: no symptoms reported Cardiovascular: no symptoms reported Gastrointestinal: no symptoms reported Musculoskeletal: no symptoms reported Skin: no symptoms reported Neurological: No Symptoms Reported Hematologic/Lymphatic: No Symptoms Reported Immunological/Allergic: no symptoms reported All Other Systems Reviewed Negative Unless Noted: Yes Past Fxgmemi-Yobsaw-Vptzob Hx Patient Social History Substance use?: No Immunizations Up To Date Tetanus Booster (TDap): Less than 5yrs First/Initial COVID19 Vaccinat: APR Second COVID19 Vaccination Cristian: DID NOT GET 2ND ONE BECAUSE IT MADE HIM SICK. Third COVID19 Vaccination Date: APR Seasonal Allergies Seasonal Allergies: No Past Medical History Surgery/Hospitalization HX: valve replacement Surgeries: Yes (ablation-svt/a-fib, LOOP RECORDER 01/02/19,bicuspid valve replacement) Cardiac, Tonsillectomy, Valve Replacement Respiratory: No Currently Using CPAP: No Currently Using BIPAP: No Cardiac: Yes (ASCEND. THORACIC AORTIC ANEURYSM;BICUSPID AORTIC VALVE;AFIB/RVR;V-TACH;SVT ) Aneurysm, Atrial Fibrillation, Heart Murmur, High Cholesterol, Hypertension, Irregular Heartbeat, Palpitations, Valvular Heart Disease Neurological: Yes Headaches /Migraines Genitourinary: No Gastrointestinal: No Musculoskeletal: Yes Chronic Back Pain Endocrine: Yes (OBESITY) HEENT: No Cancer: No Psychosocial: No Integumentary: No Blood Disorders: No Adverse Reaction/Blood Tranf: No Family Medical History Hypertension SOCIAL HISTORY: -SMOKES UP TO 2 1/2 PPD, CUTTING DOWN TO 1/2 PPD -ETOH--OCCASIONAL USE -DRUGS--SMOKES MARIJUANA DAILY. PAST SURGICAL HISTORY: -TONSILLECTOMY -MULTIPLE CARDIOVERSIONS FOR ATRIAL FIB/FLUTTER WITH RVR/SVT -CARDIAC ABLATIONS X 3--LAST ONE 02/16/[address] MEDEROS -LOOP RECORDER PLACEMENT 01/02/2019 -CARDIAC CATHS--LAST ONE HERE 11/27/19, PRIOR TO AORTIC VALVE REPLACEMENT--NO INTERVENTION, NORMAL CORONARY ARTERIES, SEVERE AORTIC STENOSIS AND ASCENDING THORACIC AORTA ANEURYSM. -MECHANICAL AORTIC VALVE REPLACEMENT 12/01/19 AT [facility] Physical Exam Vital Signs Vital Signs - First Documented 08/08/22 14:45 Temp 36.7 Pulse 93 Resp 18 B/P (MAP) 135/81 (99) Pulse Ox 100 O2 Delivery Room Air Height, Weight, BMI Height: 5'11.00" Weight: 308lbs. 0.0oz. 139.739127bj; 45.00 BMI Method:Stated General Appearance: WD/WN, no apparent distress Eyes: bilateral eye normal inspection Ears: bilateral ear auricle normal Nose: normal inspection Mouth/Throat: pharynx normal, dental tenderness (Left lower molar with obvious removal of the tooth, but there does appear to be a fragment still present with some redness, no abscess felt, submandibular adenopathy worse on the left, no trismus, normal voice, uvula midline, swallowing secretions without difficulty), other (Floor the mouth is soft, tongue not elevated) Neck: non-tender, full range of motion, supple, normal inspection Cardiovascular: regular rate, rhythm, no edema, other (Audible click from the valve replacement) Respiratory: chest non-tender, lungs clear, normal breath sounds, no respiratory distress, no accessory muscle use Gastrointestinal: normal bowel sounds, non tender, soft; No distended, No guarding, No rebound Neurologic/Psychiatric: no motor/sensory deficits, alert, normal mood/affect Skin: normal color, warm/dry Progress/Results/Core Measures Results/Orders Lab Results Laboratory Tests Test 08/08/22 15:15 Range/Units White Blood Count 7.4 4.3-11.0 10^3/uL Red Blood Count 5.31 4.30-5.52 10^6/uL Hemoglobin 15.6 13.3-17.7 g/dL Hematocrit 43 40-54 % Mean Corpuscular Volume 81 80-99 fL Mean Corpuscular Hemoglobin 29 25-34 pg Mean Corpuscular Hemoglobin Concent 36 32-36 g/dL Red Cell Distribution Width 12.4 10.0-14.5 % Platelet Count 228 130-400 10^3/uL Mean Platelet Volume 9.6 9.0-12.2 fL Immature Granulocyte % (Auto) 1 % Neutrophils (%) (Auto) 56 42-75 % Lymphocytes (%) (Auto) 33 12-44 % Monocytes (%) (Auto) 6 0-12 % Eosinophils (%) (Auto) 3 0-10 % Basophils (%) (Auto) 0 0-10 % Neutrophils # (Auto) 4.2 1.8-7.8 10^3/uL Lymphocytes # (Auto) 2.5 1.0-4.0 10^3/uL Monocytes # (Auto) 0.4 0.0-1.0 10^3/uL Eosinophils # (Auto) 0.3 0.0-0.3 10^3/uL Basophils # (Auto) 0.0 0.0-0.1 10^3/uL Immature Granulocyte # (Auto) 0.1 0.0-0.1 10^3/uL Sodium Level 139 135-145 MMOL/L Potassium Level 3.9 3.6-5.0 MMOL/L Chloride Level 103 98-107 MMOL/L Carbon Dioxide Level 23 21-32 MMOL/L Anion Gap 13 5-14 MMOL/L Blood Urea Nitrogen 8 7-18 MG/DL Creatinine 0.79 0.60-1.30 MG/DL Estimat Glomerular Filtration Rate 120 BUN/Creatinine Ratio 10 Glucose Level 94 70-105 MG/DL Calcium Level 9.3 8.5-10.1 MG/DL Corrected Calcium 8.9 8.5-10.1 MG/DL Total Bilirubin 0.4 0.1-1.0 MG/DL Aspartate Amino Transf (AST/SGOT) 30 5-34 U/L Alanine Aminotransferase (ALT/SGPT) 27 0-55 U/L Alkaline Phosphatase 61 40-136 U/L Total Protein 7.4 6.4-8.2 GM/DL Albumin 4.5 3.2-4.5 GM/DL My Orders Orders - REX JOLLEY MD Cbc With Automated Diff (08/08/22 14:55) Comprehensive Metabolic Panel (08/08/22 14:55) Ampicillin/Sulbactam Injection (Unasyn 3 (08/08/22 15:00) Medications Given in ED Current Medications Medications Dose Ordered Sig/Helder Route Start Time Stop Time Status Last Admin Dose Admin Ampicillin Sodium/ Sulbactam Sodium 3 gm/Sodium Chloride 100 ml @ 200 mls/hr ONCE ONCE IV 08/08/22 15:00 08/08/22 15:29 DC 08/08/22 15:02 200 MLS/HR Vital Signs/I&O 08/08/22 14:45 Temp 36.7 Pulse 93 Resp 18 B/P (MAP) 135/81 (99) Pulse Ox 100 O2 Delivery Room Air Blood Pressure Mean: 99 Departure Impression Primary Impression: Pain, dental Additional Impression: Mandibular swelling Disposition: 01 HOME, SELF-CARE Condition: Stable Departure-Patient Inst. Decision time for Depature: 15:47 Referrals: YESSENIA HARDING APRN (PCP) Primary Care Physician [facility] (Family) Primary Care Physician Patient Instructions: Dental Pain ED Add. Discharge Instructions: The swelling that was felt does feel more like a very swollen lymph node. No abscess or anything like that was felt. He will be on the antibiotic for the next 10 days, twice a day. Be sure to finish all of the antibiotics even if you start feeling better. Please be sure to follow-up with a dentist to remove that remaining piece of tooth. Scripts Oxycodone HCl (Oxycodone HCl) 5 Mg Tablet 5 MG PO Q6H PRN for PAIN-SEVERE (8-10) for 3 Days, #12 TAB Prov: REX JOLLEY MD 08/08/22 Amoxicillin/Potassium Clav (Amox Tr-K Clv 875-125 mg Tab) 875 Mg-125 Mg Tablet 1 EACH PO BID for 10 Days, #20 TAB Prov: REX JOLLEY MD 08/08/22 Work/School Note: Work Release Form Date Seen in the Emergency Department: Aug 08, 2022 Return to Work: Aug 09, 2022 Restrictions: No Restrictions REX JOLLEY MD Aug 08, 2022 14:59
[2022-08-08] MEDS ORDERED: AMPICILLIN/SULBACTAM INJECTION 3 GM in NS (IVPB) 100 ML IV ONE (15:00)
[2022-08-08 15:24] LABS: BASOPHILS % (AUTO) 0 % (0-10); EOSINOPHILS # (AUTO) 0.3 10^3/uL (0.0-0.3); EOSINOPHILS % (AUTO) 3 % (0-10); HEMATOCRIT 43 % (40-54); HEMOGLOBIN 15.6 g/dL (13.3-17.7); LYMPHOCYTES # (AUTO) 2.5 10^3/uL (1.0-4.0); LYMPHOCYTES % (AUTO) 33 % (12-44); MEAN CORPUSCULAR HEMOGLOBIN 29 pg (25-34); MEAN CORPUSCULAR HGB CONC 36 g/dL (32-36); MEAN CORPUSCULAR VOLUME 81 fL (80-99); MEAN PLATELET VOLUME 9.6 fL (9.0-12.2); MONOCYTES # (AUTO) 0.4 10^3/uL (0.0-1.0); MONOCYTES % (AUTO) 6 % (0-12); NEUTROPHILS # (AUTO) 4.2 10^3/uL (1.8-7.8); NEUTROPHILS % (AUTO) 56 % (42-75); PLATELET COUNT 228 10^3/uL (130-400); WHITE BLOOD COUNT 7.4 10^3/uL (4.3-11.0)
[2022-08-08 15:38] LABS: ALBUMIN 4.5 GM/DL (3.2-4.5); BILIRUBIN,TOTAL 0.4 MG/DL (0.1-1.0); CALCIUM 9.3 MG/DL (8.5-10.1); CREATININE SERUM 0.79 MG/DL (0.60-1.30); POTASSIUM 3.9 MMOL/L (3.6-5.0); TOTAL PROTEIN 7.4 GM/DL (6.4-8.2)
[2022-08-08] MEDS ORDERED: AMOX1TAB12 PO (15:49)
[2022-08-08] MEDS ORDERED: OXYC5TAB PO (18:27)
== END 2022-08-08 16:00 | disposition home or self-care (01) ==
LOC: EDUNIT# 14:42 → ER FS 14:44
DX: K08.89 Other specified disorders of teeth and supporting structures (principal); R22.0 Localized swelling, mass and lump, head; E66.9 Obesity, unspecified; F17.210 Nicotine dependence, cigarettes, uncomplicated; Z68.42 Body mass index [BMI] 45.0-49.9, adult; Z88.5 Allergy status to narcotic agent; Z28.310 Unvaccinated for COVID-19; Z79.01 Long term (current) use of anticoagulants
CPT/HCPCS: 36415; 80053; 85025; 99282